=== PATIENT | male | born 1960 | race Caucasian/White ===

== ENCOUNTER 2022-12-31 09:25 | Outpatient (OUT) | payer BC, SELFPAY ==
[2022-12-31 10:24] LABS: Hematocrit 41.8 % (42.0-54.0); Hemoglobin 13.2 g/dL (14.0-18.0); Mean Corpuscular HGB Conc 31.6 g/dL (29.9-35.2); Mean Corpuscular Hemoglobin 28.3 pg (25.9-34.0); Mean Corpuscular Volume 89.7 fL (80.0-94.0); Mean Platelet Volume 10.7 fL (9.5-13.5); Nucleated Red Blood Cells 0; Platelet Count 132 10^3/uL (150-450); Red Blood Count 4.66 10^6/uL (4.70-6.10); Red Cell Distribution Width 13.1 % (11.0-15.0); White Blood Count 3.7 10^3/uL (4.0-11.0)
[2022-12-31 10:33] LABS: Alanine Aminotransferase 22 U/L (16-63); Albumin Globulin Ratio 0.9; Albumin Level 3.5 g/dL (3.4-5.0); Alkaline Phosphatase 74 U/L (46-116); Anion Gap 9.9; Aspartate Amino Transferase 17 U/L (15-37); BUN Creatinine Ratio 29.3; Bilirubin Total 0.5 mg/dL (0.2-1.0); Calcium 9.4 mg/dL (8.5-10.1); Carbon Dioxide 36.4 mmol/L (21.0-32.0); Chloride 102 mmol/L (98-107); Chol HDL Ratio 2.1; Cholesterol 161 mg/dL (<=200); Estimated GFR (African America >60 (>=60); Estimated GFR (Non-African Ame >60 (>=60); Globulin 3.7 g/dL; Glucose 102 mg/dL (74-106); HDL Cholesterol 77 mg/dL (40-60); Potassium 4.3 mmol/L (3.5-5.1); Sodium 144 mmol/L (136-145); Total Protein 7.2 g/dL (6.4-8.2); Triglycerides 45 mg/dL (<=150)
[2022-12-31 11:25] LABS: Monocytes Absolute Manual 0.22 10^3/uL (0.30-0.80); Segmented Neut Absolute Manual 2.51 10^3/uL (1.4-6.5)
[2022-12-31 11:26] LABS: Basophils Abs Manual 0.03 10^3/uL (0.00-0.10); Eosinophils Absolute Manual 0.14 10^3/uL (0.00-0.70)
[2022-12-31 11:27] LABS: Band Neutrophils Absolute 0.1 10^3/uL (0.0-0.3)
[2022-12-31 11:28] LABS: Ovalocytes 1+
== END 2022-12-31 09:26 ==
LOC: LAB 09:37
PROVIDERS: PCP Internal Medicine; Visit Provider Internal Medicine
DX: Z00.00 Encounter for general adult medical examination without abnormal findings (principal)
CPT/HCPCS: 36415; 80053; 80061; 85007; 85025

== ENCOUNTER 2023-03-12 09:55 | Outpatient (OUT) | payer BC, MEDICARE, SELFPAY ==
[2023-03-12 11:37] LABS: Prostate Specific Antigen Scrn <0.13 ng/mL (<=4.00)
== END 2023-03-12 09:56 | disposition home or self-care (01) ==
PROVIDERS: PCP Internal Medicine; Visit Provider Urology
DX: Z85.46 Personal history of malignant neoplasm of prostate (principal)
CPT/HCPCS: 36415; G0103

== ENCOUNTER 2023-05-19 12:50 | Outpatient (OUT) | payer BC, MEDICARE, SELFPAY ==
[2023-05-19 13:07] LABS: Basophils Percent Auto 0.6 % (0.2-2.0); Eosinophils Absolute Auto 0.2 10^3/uL (0.0-0.7); Eosinophils Percent Auto 3.5 % (0.9-7.0); Hematocrit 36.7 % (42.0-54.0); Hemoglobin 11.9 g/dL (14.0-18.0); Immature Granulocytes Abs Auto 0.02 10^3/uL (0.00-0.03); Immature Granulocytes Pct Auto 0.4 % (0.0-0.5); Lymphocytes Absolute Auto 0.6 10^3/uL (1.2-3.8); Lymphocytes Percent Auto 11.1 % (20.5-60.0); Mean Corpuscular HGB Conc 32.4 g/dL (29.9-35.2); Mean Corpuscular Hemoglobin 29.5 pg (25.9-34.0); Mean Corpuscular Volume 91.1 fL (80.0-94.0); Mean Platelet Volume 9.9 fL (9.5-13.5); Monocytes Absolute Auto 0.4 10^3/uL (0.3-0.8); Monocytes Percent Auto 8.6 % (1.7-12.0); Neutrophils Absolute Auto 3.9 10^3/uL (1.4-6.5); Neutrophils Percent Auto 75.8 % (43.0-75.0); Platelet Count 167 10^3/uL (150-450); Red Blood Count 4.03 10^6/uL (4.70-6.10); Red Cell Distribution Width 12.4 % (11.0-15.0); White Blood Count 5.1 10^3/uL (4.0-11.0)
[2023-05-19 14:02] LABS: Alanine Aminotransferase 13 U/L (16-63); Albumin Globulin Ratio 0.9; Albumin Level 3.1 g/dL (3.4-5.0); Alkaline Phosphatase 55 U/L (46-116); Anion Gap 7.6; Aspartate Amino Transferase 11 U/L (15-37); Bilirubin Total 0.4 mg/dL (0.2-1.0); Calcium 8.9 mg/dL (8.5-10.1); Carbon Dioxide 35.2 mmol/L (21.0-32.0); Chloride 101 mmol/L (98-107); Estimated GFR (African America >60 (>=60); Estimated GFR (Non-African Ame >60 (>=60); Globulin 3.5 g/dL; Glucose 70 mg/dL (74-106); Potassium 3.8 mmol/L (3.5-5.1); Sodium 140 mmol/L (136-145); Thyroid Stimulating Hormone 4.347 uIU/mL (0.358-3.740); Total Protein 6.6 g/dL (6.4-8.2); Valproic Acid 78.6 ug/mL (50.0-100.0)
[2023-05-24 22:07] LABS: Oxcarbazepine (Trileptal),S <1 ug/mL (10-35)
== END 2023-05-19 12:51 | disposition home or self-care (01) ==
LOC: LAB 12:51
PROVIDERS: PCP Internal Medicine
DX: G44.209 Tension-type headache, unspecified, not intractable (principal); R25.1 Tremor, unspecified
CPT/HCPCS: 36415; 80053; 80164; 80183; 84443; 85025

== ENCOUNTER 2023-07-09 08:38 | Outpatient (OUT) | payer BC, MEDICARE, SELFPAY ==
--- NOTE | 2023-07-09 08:54 | CT_ITS ---
The [address] [address] Patient Name: YENI CONNOR MRN: [facility]:[id number] date: 1960 Sex: M Assigned Patient Location: LAB Current Patient Location: LAB Accession/Order Number: [id number] Exam Date: 07/09/2023 10:02 Report Date: 07/09/2023 11:40 At the request of: ZULEIKA DOLL Procedure: CT abdomen pelvis w con EXAM: CT abdomen pelvis w con HISTORY: Unintentional Weight Loss R63.4, Anemia D64.9 COMPARISON: None. TECHNIQUE: Following intravenous administration of 97 cc of Omnipaque 300, axial soft tissue windows of the abdomen and pelvis were performed with coronal and sagittal reformats. CT dose reduction technique was used including Automated Exposure Control. Findings: Mild left lower lobe scarring. ABDOMEN: Fatty infiltration of the liver. The gallbladder, spleen, pancreas and adrenal glands are unremarkable. There are multiple splenic low-attenuation lesions, too small to characterize. The largest lesions do not meet the criteria for simple cyst. Duplicated left kidney. No renal stones or collecting system dilatation. The visualized portions of the bilateral ureters are nondilated. There are colonic diverticula. Otherwise, the bowel is unremarkable without evidence of wall thickening or obstruction. The appendix is nondilated. The aorta is normal caliber. Mild atherosclerotic disease. No enlarged abdominal lymph nodes or free abdominal fluid. Pelvis: Unremarkable bladder. No enlarged pelvic lymph nodes or free pelvic fluid. No aggressive sclerotic or lytic osseous lesions. Mild multilevel degenerative lumbar spondylosis with mild bilateral hip osteoarthritis. CT/CT abdomen pelvis w con IMPRESSION: 1. Fatty liver. 2. Multiple splenic low attenuation lesions. These may relate to benign angiomatous lesions. However infection or a lymphoproliferative disorder can have a similar appearance. If indicated, suggest contrast enhanced MRI for further evaluation. 3. Diverticulosis. 4. Other more incidental findings, as described above. Electronically authenticated by: TASHA ALMARAZ Date: 07/09/2023 11:40
[2023-07-09 09:02] LABS: Estimated GFR (African America >60 (>=60); Estimated GFR (Non-African Ame >60 (>=60)
== END 2023-07-09 08:39 | disposition home or self-care (01) ==
LOC: LAB 08:38
PROVIDERS: PCP Internal Medicine; Visit Provider Internal Medicine
DX: R63.4 Abnormal weight loss (principal); D64.9 Anemia, unspecified; C61 Malignant neoplasm of prostate; K76.0 Fatty (change of) liver, not elsewhere classified; K57.90 Diverticulosis of intestine, part unspecified, without perforation or abscess without bleeding
CPT/HCPCS: 36415; 74177; 82565; Q9967

== ENCOUNTER 2023-08-28 07:33 | Outpatient (OUT) | payer BC, MEDICARE, SELFPAY ==
--- NOTE | 2023-08-28 | CT_ITS ---
The [address] [address] Patient Name: YENI CONNOR MRN: [id number] date: 1960 Sex: M Assigned Patient Location: LAB Current Patient Location: Accession/Order Number: [id number] Exam Date: 08/28/2023 09:28 Report Date: 08/29/2023 18:54 At the request of: ZULEIKA DOLL Procedure: CT abdomen pelvis w con EXAM: CT scan of the abdomen and pelvis using 100 mL of IV iodinated contrast. Oral contrast. Dose reduction technique used: Automated exposure control and/or adjustment of the mA and/or kV according to patient size and/or use of iterative reconstruction technique. REASON FOR EXAM: weight loss R63.4, Primary Hypertension I10, Thombocylopenia COMPARISON: CT scan dated 07/09/2023 FINDINGS: Multiple small hypoenhancing splenic lesions, the largest of these measuring up to 1.1 cm, these are not significantly changed. Small amount scarring in the lower lungs bilaterally. Clustered nodules in the right middle lobe are likely sequela of infection/inflammation. Partial duplication of the left ureter. Colonic diverticulosis. Hysterectomy. Normal appendix. No free fluid in the abdomen or pelvis. No free intraperitoneal air. No dilated or thickened loops of small bowel or colon. No hydronephrosis or obstructing renal or ureteral calculi. Liver, pancreas, spleen, bilateral kidneys, and bilateral adrenal glands are otherwise unremarkable. No lymphadenopathy in the abdomen or pelvis. Remainder unremarkable. CT/CT abdomen pelvis w con IMPRESSION: 1. Small splenic hypoenhancing lesions are not significantly changed and may represent hemangiomas although are technically indeterminate, correlate with any prior outside imaging. 2. Otherwise, no other evidence of malignancy in the abdomen or pelvis. Electronically authenticated by: KALIE COCHRAN Date: 08/29/2023 18:54
--- OUTSIDE RECORDS SUMMARY | 2023-08-28 07:36 | XMS_ITS | CCD ---
Author Name Unknown Address [address] [place] [address] Organization [facility] Care Team Providers Care [place] Counselor Name Role Phone Sammy Aguilera Unavailable SAMMY AGUILERA Primary Care Physician KAYLA MCMAHON Attending Unavailable BRIAN .KAYLA Admitting Unavailable SAMMY AGUILERA Primary Care Unavailable JULIUS RUEDA Consulting Unavailable SAMMY AGUILERA Attending Unavailable SAMMY AGUILERA Consulting Unavailable SAMMY AGUILERA Primary Care Unavailable SAMMY AGUILERA Admitting Unavailable Kayla Torres Attending Unavailable Kayla Torres Admitting Unavailable Kayla Torres Attending Unavailable Jossue Spivey Admitting Unavailable Jossue Spivey Attending Unavailable Kayla Torres Attending Unavailable Kayla Torres Attending Unavailable Allergies Allergy Classification Reported Allergen(s) Allergy Type Date of Onset Reaction(s) Facility (1 source) patient allergy list reviewed by nurse or physicia Propensity to adverse reactions 9 Comment:Done [facility] Other (1 source) Allergies Reconciled Propensity to adverse reactions Unknown [facility] Other (1 source) No Known Medication Allergies; Translations: [No Known Medication Allergies] Propensity to adverse reactions (disorder) [facility] Repository Medications Current Medications Medication Drug Class(es) Dates Sig (Normalized) Sig (Original) amLODIPine 2.5 mg / benazepril hydrochloride 10 mg oral capsule (20 sources) Dihydropyridine Calcium Channel Matilde, Angiotensin Converting Enzyme Inhibitor Start: 07-01-2023 amLODIPine Besy-Benazepril HCl 2.5-10 MG as directed Orally daily for 30 days Jun, Active Start: 03-31-2023 [address] [facility] every twenty-four hours Lotrel 10-20 MG 1 capsule Orally daily for 90 days Mar, Active take [address] [facility] every twenty-four hours Lotrel 10-40 MG 1 capsule Orally daily Active ARIPiprazole 10 mg oral tablet (4 sources) Atypical Antipsychotic Start: 05-13-2021 take 1 mg by mouth once daily Abilify 10 mg Tab mg tab(s), Oral, Daily, Refills(s) 0 Start Date: 05/13/21 Status: Ordered Aspir-81 81 MG (20 sources) take 1 tablet by mouth once daily Aspir-81 81 MG 1 tablet Orally Once a day Active take 1 tablet by mouth once kavon y Aspir-81 81 MG 1 tablet Orally Once a day *please review for potential _update for e-prescription and drug interaction check* Active aspirin 81 mg oral tablet (4 sources) Platelet Aggregation Inhibitor, Nonsteroidal Anti-inflammatory Drug Start: 02-13-2020 take 1 mg by mouth once daily aspirin 81 mg oral tablet mg tab(s), Oral, Daily, Refills(s) 0 Start Date: 02/13/20 Status: Ordered 168 hr buprenorphine 0.02 mg/hr transdermal system (20 sources) Partial Opioid Agonist Start: 08-10-2023 Buprenorphine 20 MCG/HR 1 patch Transdermal every 7 days Aug, Active Start: 07-09-2023 Buprenorphine 20 MCG/HR 1 patch Transdermal every 7 days for 30 days start 07/09Jul, Active Start: 06-07-2023 Buprenorphine 20 MCG/HR 1 patch Transdermal every 7 days for 30 days p/u 06/07, start 06/09Jun, Active Start: 05-08-2023 Buprenorphine 20 MCG/HR 1 patch Transdermal every 7 days for 30 days p/u 05/08, start 05/10May, Active Start: 04-09-2023 Buprenorphine 20 MCG/HR 1 patch Transdermal every 7 days for 30 days p/u 04/09, start 04/10Apr, Active Start: 03-11-2023 Buprenorphine 20 MCG/HR 1 patch Transdermal every 7 days for 30 days Start 03/11Mar, Active Start: 02-09-2023 Buprenorphine 20 MCG/HR 1 patch Transdermal every 7 days for 30 days Start 02/08Jan, Active Start: 01-05-2023 Buprenorphine 20 MCG/HR 1 patch Transdermal every 7 days for 30 days Start 01/05Dec, Active Start: 12-03-2022 Buprenorphine 20 MCG/HR 1 patch Transdermal every 7 days p/u 12/03, start 12/04November, Active Start: 11-05-2022 Buprenorphine 20 MCG/HR 1 patch Transdermal every 7 days for 28 days Rx 11/04/22 Oct, Active Start: 09-30-2022 Buprenorphine 20 MCG/HR 1 patch Transdermal every 7 days for 28 days Sep, Active Belbuca 150 MCG 1 film to the gum Bucally every 12 hrs Active Belbuca 150 MCG 1 film to the gum Bucally every 12 hrs Active celecoxib 200 mg oral capsule (20 sources) Nonsteroidal Anti-inflammatory Drug Start: 02-13-2020 take 1 mg by mouth twice daily CeleBREX 200 mg Cap mg cap(s), Oral, BID, Refills(s) 0 Start Date: 02/13/20 Status: Ordered take [address] [facility] every twenty-four hours CeleBREX 200 MG 1 capsule with food Orally Once a day Active dexamethasone 4 mg oral tablet (1 source) Corticosteroid Start: 05-30-2023 take 1 tablet by mouth once daily dexamethasone 4 mg Tab 4 mg = 1 tab(s), Oral, Daily, # 6 tab(s), Refills(s) 0, Pharmacy: [facility]/pharmacy #[id number], 182, cm, 05/27/23 13:18:00 EDT, Height/Length Dosing, 68.1, kg, 05/27/23 13:18:00 EDT, Weight Dosing Start Date: 05/30/23 Status: Ordered DuoDERM CGF Spots Extra Thin - (13 sources) Start: 03-31-2023 DuoDERM CGF Spots Extra Thin - as directed Externally qd for 30 days Mar, Active methylphenidate hydrochloride 20 mg oral tablet (20 sources) Central Nervous System Stimulant Start: 01-17-2020 take 1.5 tablets by mouth every twenty-four hours Ritalin 20 MG 1.5 tablet Orally daily for [address] Aguilera Dec, Active pantoprazole 40 mg delayed release oral tablet (20 sources) Proton Pump Inhibitor Start: 02-13-2020 take 1 mg by mouth once daily Pantoprazole [address] Tab mg tab(s), Oral, Daily, Refills(s) 0 Start Date: 02/13/20 Status: Ordered pravastatin sodium 80 mg oral tablet (20 sources) HMG-CoA Reductase Inhibitor Start: 02-13-2020 take 1 mg by mouth once daily pravastatin 80 mg Tab mg tab(s), Oral, Daily, Refills(s) 0 Start Date: 02/13/20 Status: Ordered pregabalin 150 mg oral capsule (20 sources) Start: 07-27-2023 take 1 capsule by mouth every eight hours Lyrica 150 MG 1 capsule Orally 3 times a day for 90 days Jul, Active Start: 10-30-2022 take 1 capsule by mo ut every eight hours Lyrica 150 MG 1 capsule Orally 3 times a day Sep, Active Start: 02-13-2020 take 1 capsule by mo uth three times daily Lyrica 100 mg Cap 100 mg = 1 cap(s), Oral, TID, Refills(s) 0 Start Date: 02/13/20 Status: Ordered take 1 capsule by mo ut every eight hours Lyrica 150 MG 1 capsule Orally 3 times a day Active rOPINIRole 1 mg oral tablet (20 sources) Nonergot Dopamine Agonist Start: 02-13-2020 take 1 tablet by mouth three times daily Requip 1 mg Tab mg tab(s), Oral, TID, Refills(s) 0 Start Date: 02/13/20 Status: Ordered take 1 tablet by mouth once kavon y rOPINIRole HCl 1 MG TAKE 1 TABLET BY MOUTH EVERY DAY for 90 Active sildenafil 50 mg oral tablet (3 sources) Phosphodiesterase 5 Inhibitor Start: 12-02-2022 sildenafil 50 mg Tab 50 mg = 1 tab(s), Oral, As Directed, 1 hour before sexual activity. Do not exceed 100 mg (2 tabs) in 24 hours. Cannot take with nitro products., # 30 tab(s), Refills(s) 3, Pharmacy: [facility]/pharmacy #[id number], 183, cm, 12/02/22 8:18:00 EDT, Height/Length Dosi... Start Date: 12/02/22 Status: Ordered tiZANidine 4 mg oral capsule (20 sources) Central alpha-2 Adrenergic Agonist Start: 02-13-2020 take 1 mg by mouth three times daily tizanidine 4 mg oral capsule mg cap(s), Oral, TID, Refills(s) 0 Start Date: 02/13/20 Status: Ordered tiZANidine HCl 4 MG 1 and 1/2 tablet as needed Orally Three times a day neurologist Active traZODone hydrochloride 100 mg oral tablet (20 sources) Serotonin Reuptake Inhibitor Start: 05-27-2023 take 1 tablet by mouth once daily at bedtime traZODONE 100 mg Tab 100 mg = 1 tab(s), Oral, Once a day (at bedtime), Refills(s) 0 Start Date: 05/27/23 Status: Ordered take 3 tablets by mouth at bedti me traZODone HCl 100 mg take 3 tablet Orally at bedtime Active 24 hr divalproex sodium 500 mg extended release oral tablet (20 sources) Mood Stabilizer, Anti-epileptic Agent Start: 02-13-2020 take 1 mg by mouth once daily divalproex sodium 500 mg ER Tab mg tab(s), Oral, Daily, Refills(s) 0 Start Date: 02/13/20 Status: Ordered take 2 tablets by mouth once colt ly Divalproex Sodium ER 500 MG 2 tabs Orally once a day neurologist Active vortioxetine 20 mg oral tablet (20 sources) Start: 02-13-2020 take 1 mg by mouth once daily Trintellix 20 mg oral tablet mg tab(s), Oral, Daily, Refills(s) 0 Start Date: 02/13/20 Status: Ordered Problems Active Problems Problem Classification Problem Date Documented Date Episodic/Chronic Bacterial infection; unspecified site (1 source) Bacteremia; Translations: [Bacteremia] Onset: 05-29-2023 Episodic Cancer of head and neck (3 sources) Malignant tumor of tonsillar pillar; 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)] Onset: 07-02-2008 Chronic Cancer of head and neck (9 sources) History of malignant neoplasm of tonsil; Translations: [Personal history of malignant neoplasm of other sites of lip, oral cavity, and pharynx] Episodic Cancer of prostate (20 sources) Malignant tumor of prostate; Translations: [Malignant neoplasm of prostate] Onset: 11-30-2022 Chronic Cancer of prostate (6 sources) Personal history of malignant neoplasm of prostate; Translations: [History of malignant neoplasm of prostate] Onset: 12-02-2022 Episodic Cancer; other and unspecified primary (20 sources) History of squamous cell carcinoma; Translations: [Personal history of malignant neoplasm of other organs and systems] Episodic Cancer; other and unspecified primary (2 sources) Personal history of malignant neoplasm of other organs and systems Episodic Cancer; other and unspecified primary (1 source) H/O: malignant neoplasm; Translations: [Personal history of malignant neoplasm of other organs and systems] Episodic Cardiac dysrhythmias (1 source) Sinus bradycardia; Translations: [Bradycardia, unspecified] Onset: 05-29-2023 Episodic Coagulation and hemorrhagic disorders (20 sources) Thrombocytopenic disorder; Translations: [Thrombocytopenia, unspecified] Chronic Deficiency and other anemia (1 source) Pancytopenia; Translations: [Other pancytopenia] Chronic Deficiency and other anemia (1 source) Anemia; Translations: [Anemia, unspecified] Episodic Deficiency and other anemia (1 source) Anemia, unspecified Episodic Diseases of white blood cells (1 source) Leukopenia; Translations: [Decreased white blood cell count, unspecified] Chronic Disorders of lipid metabolism (20 sources) Hypercholesterolemia; Translations: [Pure hypercholesterolemia, unspecified] Onset: 08-04-2018 Chronic Esophageal disorders (20 sources) Gastro-esophageal reflux disease with esophagitis; Translations: [Gastroesophageal reflux disease with esophagitis without hemorrhage] Onset: 08-04-2018 Chronic Essential hypertension (20 sources) Essential hypertension; Translations: [Essential (primary) hypertension] Onset: 04-01-2011 Chronic Genitourinary symptoms and ill-defined conditions (14 sources) Mixed incontinence; Translations: [Incontinence] Onset: 12-02-2022 Chronic Genitourinary symptoms and ill-defined conditions (13 sources) Increased frequency of urination; Translations: [Isolated proteinuria] Onset: 05-27-2023 06-18-2020 Episodic Headache; including migraine (3 sources) Chronic tension-type headache; Translations: [Chronic tension-type headache, intractable] Onset: 08-12-2018 Chronic Immunizations and screening for infectious disease (1 source) Vaccination given; Translations: [Encounter for immunization] Episodic Malaise and fatigue (2 sources) Malaise and fatigue; Translations: [Other malaise and fatigue] Onset: 11-11-2018 Episodic Miscellaneous mental health disorders (20 sources) Primary insomnia; Translations: [Primary insomnia] Chronic Mood disorders (20 sources) Recurrent major depression in remission; Translations: [Major depressive disorder, recurrent, in partial remission] Onset: 08-04-2018 Chronic Neoplasms of unspecified nature or uncertain behavior (9 sources) Neoplasm of uncertain behavior of soft tissues; Translations: [Neoplasms of unspecified nature of bone, soft tissue, and skin] Episodic Osteoarthritis (12 sources) Osteoarthritis of knee; Translations: [Degenerative joint disease of knee] Onset: 08-04-2018 Chronic Other aftercare (9 sources) H/O: high risk medication; Translations: [Other keno terminal operator (current) drug therapy] Episodic Other circulatory disease (1 source) Cardiovascular symptoms; Translations: [Other specified symptoms and signs involving the circulatory and respiratory systems] Episodic Other connective tissue disease (9 sources) Impingement syndrome of shoulder region; Translations: [Shoulder impingement syndrome] Episodic Other connective tissue disease (1 source) Fibromyalgia; Translations: [Fibromyalgia] Episodic Other hereditary and degenerative nervous system conditions (3 sources) Restless legs; Translations: [Restless legs syndrome] Onset: 08-04-2018 Chronic Other lower respiratory disease (1 source) Dyspnea; Translations: [Other forms of dyspnea] Episodic Other male genital disorders (9 sources) Induratio penis plastica; 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] Onset: 12-09-2011 Chronic Other male genital disorders (2 sources) Secondary erectile dysfunction; 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] Onset: 12-02-2022 Chronic Other male genital disorders (4 sources) Erectile dysfunction following radical prostatectomy 12-02-2022 Chronic Other nervous system disorders (1 source) Chronic pain syndrome; Translations: [Chronic pain syndrome] Chronic Other non-traumatic joint disorders (1 source) Monoarthritis of ankle and/or foot; Translations: [Monoarthritis, not elsewhere classified, left ankle and foot] Chronic Other non-traumatic joint disorders (2 sources) Shoulder joint pain; Translations: [Pain in joint, shoulder region] Onset: 08-04-2018 Episodic Other nutritional; endocrine; and metabolic disorders (1 source) Simple obesity ; Translations: [Other obesity due to excess calories] Onset: 08-12-2018 Chronic Other nutritional; endocrine; and metabolic disorders (1 source) Body mass index 30+ - obesity; Translations: [Body mass index 30.0-30.9, adult] Onset: 08-12-2018 Chronic Other nutritional; endocrine; and metabolic disorders (1 source) Abnormal weight loss; Translations: [Abnormal weight loss] Episodic Other nutritional; endocrine; and metabolic disorders (4 sources) Abnormal weight loss Episodic Other screening for suspected conditions (not mental disorders or infectious disease) (5 sources) Raised prostate specific antigen; Translations: [Elevated prostate specific antigen [PSA]] Resolved: 06-14-2020 03-12-2020 Episodic Other skin disorders (1 source) Ingrowing nail; Translations: [Ingrowing nail] Episodic Residual codes; unclassified (20 sources) Obstructive sleep apnea syndrome; Translations: [Obstructive sleep apnea (adult) (pediatric)] Onset: 08-04-2018 Chronic Residual codes; unclassified (4 sources) Obstructive sleep apnea (adult) (pediatric) Chronic Residual codes; unclassified (1 source) Sleep apnea; Translations: [Sleep apnea, unspecified] Onset: 08-04-2018 Chronic Residual codes; unclassified (9 sources) Insomnia; Translations: [Insomnia, unspecified] Episodic Respiratory failure; insufficiency; arrest (adult) (1 source) Acute respiratory failure; Translations: [Acute respiratory failure with hypoxia] Onset: 05-27-2023 Episodic Spondylosis; intervertebral disc disorders; other back problems (20 sources) Lumbar spondylosis; Translations: [Spondylosis without myelopathy or radiculopathy, lumbar region] Onset: 08-04-2018 Chronic Sprains and strains (1 source) Strain of muscle and tendon of back wall of thorax, initial encounter; Translations: [Strain of muscle and tendon of back wall of thorax, initial encounter] Episodic Viral infection (3 sources) Disease caused by 2019-nCoV; Translations: [COVID-19] Onset: 05-27-2023 Past or Other Problems Problem Classification Problem Date Documented Da te Episodic/Chronic Esophageal disorders (5 sources) Esophageal disorders; Translations: [Gastro-esophageal reflux disease with esophagitis, without bleeding] Headache; including migraine (1 source) Headache; Translations: [Headache, unspecified] Onset: 08-04-2018 Episodic Inflammatory conditions of male genital organs (1 source) Chronic prostatitis; Translations: [Chronic prostatitis] Resolved: 03-12-2020 Chronic Other aftercare (1 source) High risk drug monitoring status; Translations: [long term care phlebotomist (current) use of opiate analgesic] Onset: 02-09-2019 Episodic Other connective tissue disease (9 sources) Myalgia/myositis - multiple; Translations: [Unspecified myalgia and myositis] Onset: 12-09-2011 Episodic Other connective tissue disease (1 source) Pain in limb; Translations: [Pain in soft tissues of limb] Onset: 08-04-2018 Episodic Other gastrointestinal disorders (1 source) Dysphagia; Translations: [Dysphagia, unspecified] Onset: 08-04-2018 Episodic Screening and history of mental health and substance abuse codes (1 source) History of tobacco use; Translations: [Personal history of tobacco use, presenting hazards to health] Onset: 08-12-2018 Episodic Skin and subcutaneous tissue infections (1 source) Cellulitis of finger; Translations: [Cellulitis of unspecified finger] Resolved: 11-13-2019 Episodic Spondylosis; intervertebral disc disorders; other back problems (2 sources) Low back pain; Translations: [Low back pain, unspecified] Onset: 08-04-2018 Episodic Unclassified (9 sources) Personal history of malignant neoplasm of other and unspecified parts of oral cavity and pharynx; Translations: [Personal history of malignant neoplasm of other and unspecified parts of oral cavity and pharynx] Onset: 12-09-2011 Viral infection (1 source) Postherpetic neuralgia; Translations: [Other postherpetic nervous system involvement] Onset: 08-04-2018 Episodic Results Test Name Value Interpretation Reference Range Facility Insurance Correspondenceon 1 09-20-2022 Insurance Correspondence [id number]# 1.00TIFF [facility] Reportability Response - Pub lic Healthon 06-03-2023 Reportability Response - Public Health {[id number]}XML [facility] Insurance Correspondence Off iceon 06-01-2023 Insurance Correspondence Office [id number] #1.00TIFF [facility] Discharge Instructionson Discharge Instructions [id number]#1. 00TIFF [facility] Insurance Correspondence Off iceon 05-31-2023 Insurance Correspondence Office [id number]# 1.00TIFF Normal [facility] Insurance Correspondence Office [id number]# 1.00TIFF Normal [facility] Auto Diffon 05-30-2023 Basophils/100 WBC (Bld) 0.3 % Normal 0.0-2.0 [facility] Comment on above: Order Comment: Order Added by Discern Expert. Performed By: #### 2 094530, [id number], 1783041, [id number], [id number] ####[facility] [address] [place] [address] Basophils/Leukocytes Auto (Bld) [Pure # fraction] 0.0 E9/L Normal 0.0-0.2 [facility] Comment on above: Order Comment: Order Added by Discern Expert. Performed By: #### 2 130771, 8328194, 7984280, [id number], [id number] ####[facility] [address] [place] [address] Eosinophils/100 WBC (Bld) 0.0 % Normal 0.0-8.0 [facility] Comment on above: Order Comment: Order Added by Emma Expert. Performed By: #### 2 464691, 2006206, 6618551, 25605044, 5768121 ####[facility] [address] [place] [address] Eosinophils/Leukocytes Auto (Bld) [Pure # fraction] 0.0 E9/L Normal 0.0-0.5 [facility] Comment on above: Order Comment: Order Added by Emma Expert. Performed By: #### 2 870471, 5239174, 5769374, 68440399, 8015356 ####[facility] [address] [place] [address] Lymphocytes/100 WBC (Bld) 17.8 % Normal 14.0-50.0 [facility] Comment on above: Order Comment: Order Added by Emma Expert. Performed By: #### 2 204511, 9999420, 9184453, 73092916, 9195642 ####[address] [place] [address] Lymphocytes/Leukocytes Auto (Bld) [Pure # fraction] 0.8 E9/L Low 1.0-4.0 [facility] Comment on above: Order Comment: Order Added by Emma Expert. Performed By: #### 2 588701, 3733415, 0384956, [id number], 4314527 ####[address] [place] [address] Monocytes/100 WBC (Bld) 6.9 % Normal 4.0-14.0 [facility] Comment on above: Order Comment: Order Added by Emma Expert. Performed By: #### 2 965086, 0334556, 0572881, 86907381, 3296346 ####[address] [address] Monocytes/Leukocytes Auto (Bld) [Pure # fraction] 0.3 E9/L Normal 0.2-1.0 [facility] Comment on above: Order Comment: Order Added by Emma Expert. Performed By: #### 2 538518, 0248686, 6264996, 51976599, 8279404 ####[address] [place] [address] Neutrophils/100 WBC (Bld) 75.0 % Normal 36.0-75.0 [facility] Comment on above: Order Comment: Order Added by Emma Expert. Performed By: #### 2 673502, 6472053, 2939555, 06281804, 7719319 ####[address] [place] [address] Neutrophils/Leukocytes Auto (Bld) [Pure # fraction] 3.6 E9/L Normal 2.0-7.5 [facility] Comment on above: Order Comment: Order Added by Emma Expert. Performed By: #### 2 376288, 9114564, 0430826, 77338493, 5701933 ####[facility] [address] [place] [address] BMPon 05-30-2023 Anion gap [Moles/Vol] 9 mmol/L Normal 6-16 [facility] Comment on above: Performed By: #### 2 326206, 9952253, 8630756, 61064011, 08133000, 5648271 #### [facility] [address] [place] [address] Calcium [Mass/Vol] 8.6 mg/dL Low 8.9-11.1 [facility] Comment on above: Performed By: #### 2 781841, 6572827, 0173632, 42783794, 27577785, 3657017 #### [facility] [address] [place] [address] Chloride [Moles/Vol] 94 mmol/L Low 101-111 [facility] Comment on above: Performed By: #### 2 932065, 9780407, 8789865, 98155972, 00099443, 5580111 #### [facility] [address] [place] [address] CO2 [Moles/Vol] 35 mmol/L High 21-31 [facility] Comment on above: Performed By: #### 2 265966, 4923236, 7687659, 00113673, 73262939, 4807939 #### [facility] [address] [place] [address] Creatinine [Mass/Vol] 0.7 mg/dL Normal 0.5-1.3 [facility] Comment on above: Performed By: #### 2 174619, 0323522, 6132672, 10872776, 83430198, 6037919 #### [facility] [address] [place] [address] Glucose [Mass/Vol] 88 mg/dL Normal 55-199 [facility] Comment on above: Result Comment: If t his glucose result represents a fasting glucose, interpretation should refer to the following reference range: 55-99 mg/dL Performed By: #### 2 254125, 7788946, 7849540, 78282264, 06226831, 0009551 #### [facility] [address] [place] [address] Potassium [Moles/Vol] 3.3 mmol/L Low 3.5-5.3 [facility] Comment on above: Performed By: #### 2 278462, 1825878, 3336238, 47878862, 85799584, 6873916 #### [facility] [address] [place] [address] Sodium [Moles/Vol] 135 mmol/L Normal 135-145 [facility] Comment on above: Performed By: #### 2 582480, 3469777, 0734295, 84385125, 74864685, 8727911 #### [facility] [address] [place] [address] Urea nitrogen [Mass/Vol] 25 mg/dL High 5-21 [facility] Comment on above: Performed By: #### 2 565530, 8901134, 5228737, 39680918, 48028158, 8232675 #### [facility] [address] [place] [address] Urea nitrogen/Creatinine [Mass ratio] 36 No Units High 10-20 [facility] Comment on above: Performed By: #### 2 081168, 9079359, 2940970, 02850379, 24897128, 9197703 #### [facility] [address] [place] [address] CBC w/ Auto Diffon 3 Erythrocyte distribution width (RBC) [Ratio] 13.1 % Normal 10.9-14.2 [facility] [facility] Comment on above: Performed By: #### 2 616218, 4975471, 5085759, 20759274, 2571731 ####[facility] [address] [place] [address] Hematocrit (Bld) [Volume fraction] 39.3 % Normal 37.7-49.0 [facility] Comment on above: Performed By: #### 2 021423, 6331913, 7104286, 56120362, 9833226 ####[facility] [address] [place] [address] Hemoglobin (Bld) [Mass/Vol] 13.1 g/dL Low 13.5-17.5 [facility] Comment on above: Performed By: #### 2 668031, 1648790, 6541353, 15109488, 8870160 ####[place] [address] MCH (RBC) [Entitic mass] 28.8 pg Normal 27.0-34.0 [facility] Comment on above: Performed By: #### 2 155814, 9282811, 7575572, 59524718, 4009355 ####[place] [address] MCHC (RBC) [Mass/Vol] 33.3 g/dL Normal 31.4-36.0 [facility] Comment on above: Performed By: #### 2 828822, 9413684, 4192871, 20128804, 5445458 ####[place] [address] MCV (RBC) [Entitic vol] 86.4 fL Normal 80.0-100.0 [facility] Comment on above: Performed By: #### 2 118086, 0962450, 0922515, 70920981, 0467368 ####[address] [address] Platelet mean volume (Bld) [Entitic vol] 8.5 fL Normal 6.4-10.8 [facility] Comment on above: Performed By: #### 2 406543, 3740798, 9547866, 33918716, 5129907 ####[address] [address] Platelets (Bld) [#/Vol] 167.0 E9/L Normal 150.0-500.0 [facility] Comment on above: Performed By: #### 2 926718, 7376534, 6512486, 80223733, 3071142 ####[facility] [address] [place] [address] RBC (Bld) [#/Vol] 4.5 E12/L Normal 4.3-5.9 [facility] Comment on above: Performed By: #### 2 860652, 7931624, 0771465, 90490205, 3809934 ####[facility] [address] [place] [address] WBC corrected for nucl RBC Auto (Bld) [#/Vol] 4.8 E9/L Normal 4.0-11.0 [facility] Comment on above: Performed By: #### 2 227346, 4972655, 4317595, 91816996, 5218415 ####[facility] [address] [place] [address] CHEMISTRYOrdered By: SYSTEM SYSTEM on 05-30-2023 Vancomycin trough [Moles/Vol] 13 microgram/mL Normal 10 - 20 mcg/mL [facility] Rem[facility] Anion gap [Moles/Vol] 9 mmol/L Normal 6 - 16 mEq/L F [facility] Remisol Calcium [Mass/Vol] 8.6 mg/dL Low 8.9 - 11. 1 mg/dL [facility] Chloride [Moles/Vol] 94 mmol/L Low 101 - 1 11 mmol/L [facility] Remisol CO2 [Moles/Vol] 35 mmol/L High 21 - 31 mmol/L [facility] Creatinine [Mass/Vol] 0.7 mg/dL Normal 0.5 - 1.3 mg/dL [facility] Remisol GFR/1.73 sq M.predicted among non-blacks MDRD (S/P/Bld) [Vol rate/Area] 102 mL/min/1.73 m2 Normal >=59mL/min/1 .73 m2 [facility] Chem S Comment on above: Interpretive Data: C hronic kidney disease could be indicated at eGFR's of less than 60 mL/min/1.73m2. Kidney failure is indicated at less than 15 mL/min/1.73m2. Glucose [Mass/Vol] 88 mg/dL Normal 55 - 199 mg/dL [facility] Comment on above: Interpretive Data: I f this glucose result represents a fasting glucose, interpretation should refer to the following reference range: 55-99 mg/dL Potassium [Moles/Vol] 3.3 mmol/L Low 3.5 - 5.3 mmol/L [facility] Sodium [Moles/Vol] 135 mmol/L Normal 135 - 145 mmol/L [facility] Urea nitrogen [Mass/Vol] 25 mg/dL High 5 - 21 mg/dL [facility] Urea nitrogen/Creatinine [Mass ratio] 36 mg/mg High 10 - 20 [facility] Rem[facility] Vancomycin peak [Moles/Vol] 25 microgram/mL Normal 20 - 40 mcg/mL [facility] HEMATOLOGYOrdered By: SYSTEM SYSTEM on 05-30-2023 Basophils/100 WBC (Bld) 0.3 % Normal 0.0 - 2.0 % [facility] HemeAutoSS Basophils/Leukocytes Auto (Bld) [Pure # fraction] 0.0 E9/L Normal 0.0 - 0.2 E9/L [facility] HemeAutoSS Eosinophils/100 WBC (Bld) 0.0 % Normal 0.0 - 8.0 % [facility] HemeAutoSS Eosinophils/Leukocytes Auto (Bld) [Pure # fraction] 0.0 E9/L Normal 0.0 - 0.5 E9/L [facility]eAutoSS Lymphocytes/100 WBC (Bld) 17.8 % Normal 14.0 - 50.0 % [facility] HemeAutoSS Lymphocytes/Leukocytes Auto (Bld) [Pure # fraction] 0.8 E9/L Low 1.0 - 4.0 E9/L [facility] HemeAutoSS Monocytes/100 WBC (Bld) 6.9 % Normal 4.0 - 14.0 % [facility] HemeAutoSS Monocytes/Leukocytes Auto (Bld) [Pure # fraction] 0.3 E9/L Normal 0.2 - 1.0 E9/L [facility] HemeAutoSS Neutrophils/100 WBC (Bld) 75.0 % Normal 36.0 - 75.0 % [facility] HemeAutoSS Neutrophils/Leukocytes Auto (Bld) [Pure # fraction] 3.6 E9/L Normal 2.0 - 7.5 E9/L [facility] HemeAutoSS HEMATOLOGYOrdered By: Michelle Manuel on 05-30-2023 Erythrocyte distribution width (RBC) [Ratio] 13.1 % Normal 10.9 - 14.2 % [facility] HemeAutoSS Hematocrit (Bld) [Volume fraction] 39.3 % Normal 37.7 - 49.0 % [facility] HemeAutoSS Hemoglobin (Bld) [Mass/Vol] 13.1 g/dL Low 13.5 - 17.5 gm/dL [facility] HemeAutoSS MCH (RBC) [Entitic mass] 28.8 pg Normal 27.0 - 34.0 pg [facility] HemeAutoSS MCHC (RBC) [Mass/Vol] 33.3 g/dL Normal 31.4 - 36.0 gm/dL [facility] HemeAutoSS MCV (RBC) [Entitic vol] 86.4 fL Normal 80.0 - 100.0 fL [facility] HemeAutoSS Platelet mean volume (Bld) [Entitic vol] 8.5 fL Normal 6.4 - 10.8 fL [facility] HemeAutoSS Platelets (Bld) [#/Vol] 167.0 E9/L Normal 150.0 - 500.0 E9/L [facility] HemeAutoSS RBC (Bld) [#/Vol] 4.5 E12/L Normal 4.3 - 5.9 E12/L [facility] HemeAutoSS WBC corrected for nucl RBC Auto (Bld) [#/Vol] 4.8 E9/L Normal 4.0 - 11.0 E9/L [facility] HemeAutoSS Inpatient Patient Summaryon 05-30-2023 Inpatient Patient Summary YENI CONNOR :1960 Visit Date:05/27/2023 Inpatient Discharge Instructions Your Care Team Admitting Physician - KAZ LUGO, Stevefo Reason for Your Visit Covid-weak/dizzy/SOB Your Diagnosis COVID-19 Acute hypoxemic respiratory failure Sinus bradycardia Positive blood cultures UTI symptoms Essential hypertension HLD (hyperlipidemia) Depression Chronic GERD RLS (restless legs syndrome) Cough Dizziness Weakness or fatigue Tests Performed Automated Diff Bilirubin Direct Blood Gas Art, with Lytes, Gluc, Lact BMP BMP BNP Capillary Glucose POC CBC w/ Auto Diff CMP COVID Rapid Antigen ([facility]) eGFR Hepatic Function Panel -- Results Pending -- Influenza A&B Ag PT & PTT Troponin 0 Hr. Troponin 3 Hr. Troponin 6 Hr. Troponin 9 Hr. TSH With T4fr Reflex Urinalysis with Culture Reflex Vancomycin Level Peak Vancomycin Level Trough -- Results Pending -- XR Chest Single View Please visit your patient portal for your results or contact your primary care physician. This Is Your Medications List aripiprazole (Abilify 10 mg Tab) aspirin (aspirin 81 mg oral tablet) celecoxib (CeleBREX 200 mg Cap) dexamethasone (dexamethasone 4 mg Tab) divalproex sodium (divalproex sodium 500 mg ER Tab) pantoprazole (Pantoprazole [address] Tab) pravastatin (pravastatin 80 mg Tab) pregabalin (Lyrica 100 mg Cap) ropinirole (Requip 1 mg Tab) trazodone (traZODONE 100 mg Tab) vortioxetine (Trintellix 20 mg oral tablet) [Image Removed: STOP]Stop taking these medications sildenafil (sildenafil 50 mg Tab) tizanidine (tizanidine 4 mg oral capsule) Procedure History Radical retropubic prostatectomy (05/09/2020), Transrectal biopsy of prostate (02/29/2020), External beam radiotherapy (2007), Colonoscopy, Tonsillectomy. Discharge Vitals Temperature (Oral) 36.7 ?C Heart Rate (Monitored) 42 Blood Pressure 157/77 What to do next Instructions From Your Doctor Event Name Event Result Pending Diagnostic Test Results None Pharmacy Information [facility] Discharge Instructions Return to ER symptoms change or worsen. Previously Scheduled Follow-Up Appointments Wednesday 10:45 AM EDT With: Brian LUGO, Kayla Dubose Where: [facility] Interdisciplinary Note - Daniel e Manageron 05-30-2023 Interdisciplinary Note - [employer] CRM to room to discuss DC planning. Patient is awake, alert and oriented. Patient is from home with his spouse. She will transport at [place]. Patient verified PCP, home DME and insurance. Patient is here as inpatient. Medicare form signed. Patient is here with Weakness, dizziness, and Covid [id number]. Patient is on isolation. Patient is assigned to Dr Spivey, see notes. Patient has been weaned to RA. . Patient was offered DC needs for DME, HH and PM. Patient denied any DC needs. Patient was provided CRM contact, ivan board updated. Anticipated DC 05/30 or 10/30 CRM following [facility] Comment on above: Result Comment: Elec tronically Signed By: Dolly Copeland\.br\Date and Time Signed: 05/30/23 10:59 EDT Monitor Recordon 05-30-2023 Monitor Record [id number]# 1.00TIFF Normal [facility] Monitor Record [id number]# 1.00TIFF Normal [facility] Progress Note - Pharmacyon 1 Progress Note - Pharmacy Indication: Other:Bacteremia Goal Range:AUC/CARLOS A: 400 - 600 RECOMMENDATIONS PLAN: Pharmacy consulted for vancomycin dosing for YENI CONNOR, a 63 Years, Male who is being treated with vancomycin for bacteremia. 1. VANCO STATUS Vancomycin therapy is still active, today is day 3 of treatment. Patient is receiving Vanco 1000mg IV q12hr 2. VANCO LEVEL The most recent vanco level were, Peak 25 mcg/mL draw at 0618 on 05/30/23 and Trough 13 mcg/mL drawn at 1338 on 05/30/23. Based on these levels AUC is 502. These levels were drawn on day 3 of therapy. 3. DOSING RECS The Vanco AUC is therapeutic, no dosing adjustments will be made at this time. 4. NEXT LEVELThe next level is scheduled for 1300 on 06/01/2023. 5. MRSA NASAL SWAB _ We will follow patient renal function, vancomycin levels and doses with you during the course of therapy. Additional recommendations will appear in follow up notes. If you have any question please contact pharmacy. Age: 63 Years Allergies: No Known Medication Allergies Weight Last Documented Weight and Type of Scale Used Last Documented Weight Weight Measured: 68.1 kg (05/27/23 17:52:00) Type of Scale Used Weight Measured Type of Scale: Bed Scale (digital) (05/27/23 17:15:00) Height Last Documented Height/Length Last Documented Height/Length Height/Length Measured: 182 cm (05/27/23 17:52:00) CrCl: 101.34 mL/min Labs: WBC: 4.8 E9/L (05/30/23 06:18:00) RBC: 4.5 E12/L (05/30/23 06:18:00) HGB: 13.1 gm/dL Low (05/30/23 06:18:00) Hct: 39.3 % (05/30/23 06:18:00) MCV: 86.4 fL (05/30/23 06:18:00) MCH: 28.8 pg (05/30/23 06:18:00) MCHC: 33.3 gm/dL (05/30/23 06:18:00) RDW: 13.1 % (05/30/23 06:18:00) Platelet: 167 E9/L (05/30/23 06:18:00) MPV: 8.5 fL (05/30/23 06:18:00) Neutro Auto: 75 % (05/30/23 06:18:00) Lymph Auto: 17.8 % (05/30/23 06:18:00) Towns Auto: 6.9 % (05/30/23 06:18:00) Eos Auto: 0 % (05/30/23 06:18:00) Basophil Auto: 0.3 % (05/30/23 06:18:00) Neutro Absolute: 3.6 E9/L (05/30/23 06:18:00) Lymph Absolute: 0.8 E9/L Low (05/30/23 06:18:00) Towns Absolute: 0.3 E9/L (05/30/23 06:18:00) Eos Absolute: 0 E9/L (05/30/23 06:18:00) Basophil Absolute: 0 E9/L (05/30/23 06:18:00) Glucose Lvl: 88 mg/dL (05/30/23 06:18:00) BUN: 25 mg/dL High (05/30/23 06:18:00) Creatinine: 0.7 mg/dL (05/30/23 06:18:00) eGFR: 102 mL/min/1.73 m2 (05/30/23 06:18:00) BUN/Creat Ratio: 36 High (05/30/23 06:18:00) Sodium Lvl: 135 mmol/L (05/30/23 06:18:00) Potassium Lvl: 3.3 mmol/L Low (05/30/23 06:18:00) Chloride: 94 mmol/L Low (05/30/23 06:18:00) CO2: 35 mmol/L High (05/30/23 06:18:00) AGAP: 9 mEq/L (05/30/23 06:18:00) Calcium Lvl: 8.6 mg/dL Low (05/30/23 06:18:00) Vanco Pk: 25 mcg/mL (05/30/23 06:18:00) Normal [facility] Vanco Peakon 05-30-2023 VANCOMYCIN 25 microgram/mL Normal 20-40 [facility] Comment on above: Order Comment: Pleas e drawn Vancomycin Peak 1 hour after the completion of the 0200 dose on 05/30/23. Thank you.Per Rigoberto nurse draw at 600am per vanco will not be done until 500am heb 05/30/2023 05:18:00 EDT Performed By: #### 2 567028, 8070898, 7161989, 53111588, 53491404, 8400151 #### [facility] [address] [place] [address] Vanco Troughon 05-30-2023 VANCOMYCIN 13 microgram/mL Normal 10-20 [facility] Comment on above: Order Comment: NOTE: Trough is scheduled 1 hour prior to next dose. Thank you. Performed By: #### 2 438879, 5663868, 1157282, 67903529, 49454036, 3041312 #### [facility] [address] [place] [address] eGFRon 05-30-2023 GFR/1.73 sq M.predicted among non-blacks MDRD (S/P/Bld) [Vol rate/Area] 102 mL/min/1.73 m2 Normal >=59 [facility] Comment on above: Order Comment: Order added by Discern Expert. Result Comment: Script Manager radha kidney disease could be indicated at eGFR's of less than 60 mL/min/1.73m2. Kidney failure is indicated at less than 15 mL/min/1.73m2. Performed By: #### 2 873228, 6732833, 6449117, 86655135, 49478553, 6720777 #### [facility] [address] [place] [address] Auto Diffon 05-29-2023 Basophils/100 WBC (Bld) 0.2 % Normal 0.0-2.0 [facility] Comment on above: Order Comment: Order Added by Discern Expert. Performed By: #### 2 304984, 9054499, 7000251, 55338527, 91589838, 6545931 #### [facility] [address] [place] [address] Basophils/Leukocytes Auto (Bld) [Pure # fraction] 0.0 E9/L Normal 0.0-0.2 [facility] Comment on above: Order Comment: Order Added by Discern Expert. Performed By: #### 2 662328, 7710153, 0716030, 85773682, 52991619, 8772813 #### [facility] [address] [place] [address] Eosinophils/100 WBC (Bld) 0.2 % Normal 0.0-8.0 [facility] Comment on above: Order Comment: Order Added by Discern Expert. Performed By: #### 2 451439, 6572187, 7428599, 50969181, 80358723, 3705005 #### [facility] [address] [place] [address] Eosinophils/Leukocytes Auto (Bld) [Pure # fraction] 0.0 E9/L Normal 0.0-0.5 [facility] Comment on above: Order Comment: Order Added by Discern Expert. Performed By: #### 2 922254, 2533240, 0520948, 11937909, 88595196, 5363750 #### [facility] [address] [place] [address] Lymphocytes/100 WBC (Bld) 12.6 % Low 14.0-50.0 [facility] Comment on above: Order Comment: Order Added by Discern Expert. Performed By: #### 2 482709, 1275267, 7616593, 43416409, 22923746, 5261663 #### [facility] [address] [place] [address] Lymphocytes/Leukocytes Auto (Bld) [Pure # fraction] 0.7 E9/L Low 1.0-4.0 [facility] Comment on above: Order Comment: Order Added by Discern Expert. Performed By: #### 2 034384, 2590187, 1659072, 40724692, 62230961, 1947173 #### [facility] [address] [place] [address] Monocytes/100 WBC (Bld) 7.5 % Normal 4.0-14.0 [facility] Comment on above: Order Comment: Order Added by Discern Expert. Performed By: #### 2 136451, 9103896, 1558543, 09622502, 89462668, 6403964 #### [facility] [address] [place] [address] Monocytes/Leukocytes Auto (Bld) [Pure # fraction] 0.4 E9/L Normal 0.2-1.0 [facility] Comment on above: Order Comment: Order Added by Discern Expert. Performed By: #### 2 036195, 3287669, 9859895, 70647500, 09464658, 6515790 #### [facility] [address] [place] [address] Neutrophils/100 WBC (Bld) 79.5 % High 36.0-75.0 [facility] Comment on above: Order Comment: Order Added by Discern Expert. Performed By: #### 2 497490, 9053860, 3520409, 38066816, 55670568, 7983286 #### [facility] [address] [place] [address] Neutrophils/Leukocytes Auto (Bld) [Pure # fraction] 4.6 E9/L Normal 2.0-7.5 [facility] Comment on above: Order Comment: Order Added by Discern Expert. Performed By: #### 2 617301, 2162365, 2562546, 75187225, 55305321, 4956861 #### [facility] [address] [place] [address] Bili Directon 05-29-2023 Bilirubin.direct [Mass/Vol] 0.1 mg/dL Normal 0.1-0.4 [facility] Comment on above: Order Comment: Order Added by Discern Expert. Performed By: #### 2 076105, 5548777, 6039577, 13430078, 33793416, 9526075 #### [facility] [address] [place] [address] CBC w/ Auto Diffon Erythrocyte distribution width (RBC) [Ratio] 13.3 % Normal 10.9-14.2 [facility] Comment on above: Performed By: #### 2 302007, 7281771, 2947023, 05280540, 59719193, 0682050 #### [facility] [address] [place] [address] Hematocrit (Bld) [Volume fraction] 32.0 % Low 37.7-49.0 [facility] Comment on above: Performed By: #### 2 585285, 9071938, 0755405, 78437930, 53368142, 4371853 #### [facility] [address] [place] [address] Hemoglobin (Bld) [Mass/Vol] 10.9 g/dL Low 13.5-17.5 [facility] Comment on above: Performed By: #### 2 470476, 4800518, 8636751, 63652794, 07462834, 5007779 #### [facility] [address] [place] [address] MCH (RBC) [Entitic mass] 29.4 pg Normal 27.0-34.0 [facility] Comment on above: Performed By: #### 2 746776, 9566368, 0870724, 21649173, 79600160, 4449064 #### [facility] [address] [place] [address] MCHC (RBC) [Mass/Vol] 34.2 g/dL Normal 31.4-36.0 [facility] Comment on above: Performed By: #### 2 622332, 0196445, 8275381, 33381802, 01164476, 6509095 #### [facility] [address] [place] [address] MCV (RBC) [Entitic vol] 85.8 fL Normal 80.0-100.0 [facility] Comment on above: Performed By: #### 2 229176, 2401682, 4376376, 54758275, 53082770, 7045958 #### [facility] [address] [place] [address] Platelet mean volume (Bld) [Entitic vol] 8.3 fL Normal 6.4-10.8 [facility] Comment on above: Performed By: #### 2 493760, 6852032, 4569998, 53421481, 47594002, 9645662 #### [facility] [address] [place] [address] Platelets (Bld) [#/Vol] 156.0 E9/L Normal 150.0-500.0 [facility] Comment on above: Performed By: #### 2 696773, 1656151, 2250482, 48614354, 04190225, 6808275 #### [facility] [address] [place] [address] RBC (Bld) [#/Vol] 3.7 E12/L Low 4.3-5.9 [facility] Comment on above: Performed By: #### 2 039839, 5030620, 3126499, 16682707, 34317172, 3323149 #### [facility] [address] [place] [address] WBC corrected for nucl RBC Auto (Bld) [#/Vol] 5.8 E9/L Normal 4.0-11.0 [facility] Comment on above: Performed By: #### 2 404276, 5195065, 3223466, 00822106, 45718246, 0920468 #### [facility] [address] [place] [address] CHEMISTRYOrdered By: SYSTEM SYSTEM on 05-29-2023 Albumin [Mass/Vol] 2.5 g/dL Low 3.3 - 5.0 gm/dL [facility] Remisol Albumin/Globulin [Mass ratio] 0.9 {ratio} Low 1.1 - 2.2 [facility] Remisol ALP [Catalytic activity/Vol] 43 [iU]/d Normal 21 - 98 Int._Unit/L [facility] Remisol ALT No additional P-5'-P [Catalytic activity/Vol] 10 [iU]/d Normal 6 - 46 Int._Unit/L [facility] Remisol Anion gap [Moles/Vol] 7 mmol/L Normal 6 - 16 mEq/L [facility] Rem[facility] AST [Catalytic activity/Vol] 15 [iU]/d Normal 5 - 43 Int._Unit/L [facility] Remisol Bilirubin [Mass/Vol] 0.3 mg/dL Normal 0.0 - 1 .1 mg/dL [facility]isol Bilirubin.direct [Mass/Vol] 0.1 mg/dL Normal 0.1 - 0.4 mg/dL [facility] Calcium [Mass/Vol] 8.6 mg/dL Low 8.9 - 11. 1 mg/dL [facility] Chloride [Moles/Vol] 102 mmol/L Normal 101 - 1 11 mmol/L [facility] CO2 [Moles/Vol] 34 mmol/L High 21 - 31 mmol/L [facility] Creatinine [Mass/Vol] 0.8 mg/dL Normal 0.5 - 1.3 mg/dL [facility] GFR/1.73 sq M.predicted among non-blacks MDRD (S/P/Bld) [Vol rate/Area] 98 mL/min/1.73 m2 Normal >=59mL/min/1 .73 m2 [facility] Chem S Comment on above: Interpretive Data: C hronic kidney disease could be indicated at eGFR's of less than 60 mL/min/1.73m2. Kidney failure is indicated at less than 15 mL/min/1.73m2. Globulin (S) [Mass/Vol] 2.7 g/dL Normal 1.4 - 4.0 gm/dL [facility]isol Glucose [Mass/Vol] 93 mg/dL Normal 55 - 199 mg/dL [facility] Comment on above: Interpretive Data: I f this glucose result represents a fasting glucose, interpretation should refer to the following reference range: 55-99 mg/dL Potassium [Moles/Vol] 3.7 mmol/L Normal 3.5 - 5.3 mmol/L [facility] Protein [Mass/Vol] 5.2 g/dL Low 6.0 - 7.8 gm/dL [facility] Sodium [Moles/Vol] 139 mmol/L Normal 135 - 145 mmol/L [facility] TSH Qn 1.15 m[IU]/L Normal 0.34 - 5.60 mcIU/mL [facility] Urea nitrogen [Mass/Vol] 27 mg/dL High 5 - 21 mg/dL [facility] Urea nitrogen/Creatinine [Mass ratio] 34 mg/mg High 10 - FT Remisol CMPon 05-29-2023 Albumin [Mass/Vol] 2.5 g/dL Low 3.3-5.0 [facility] Comment on above: Performed By: #### 2 037238, 9633237, 4120612, 11622443, 19643388, 8414569 #### [facility] [address] [place] [address] Albumin/Globulin (S) [Mass conc ratio] 0.9 Low 1.1-2.2 [facility] Comment on above: Performed By: #### 2 282801, 5120023, 6466527, 58312317, 42164875, 9778210 #### [facility] [address] [place] [address] ALP [Catalytic activity/Vol] 43 Int._Unit/L Normal 21-98 [facility] Comment on above: Performed By: #### 2 034996, 8009586, 3686839, 80610282, 55155708, 9049926 #### [facility] [address] [place] [address] ALT No additional P-5'-P [Catalytic activity/Vol] 10 Int._Unit/L Normal 6-46 [facility] Comment on above: Performed By: #### 2 879732, 3634603, 3575518, 03725827, 49364643, 4771512 #### [facility] [address] [place] [address] Anion gap [Moles/Vol] 7 mmol/L Normal 6-16 [facility] Comment on above: Performed By: #### 2 721363, 8978083, 3367374, 19938514, 14602700, 8803230 #### [facility] [address] [place] [address] AST [Catalytic activity/Vol] 15 Int._Unit/L Normal 5-43 [facility] Comment on above: Performed By: #### 2 681517, 0854727, 3114942, 81631965, 89204774, 4228118 #### [facility] [address] [place] [address] Bilirubin [Mass/Vol] 0.3 mg/dL Normal 0.0-1.1 [facility] Comment on above: Performed By: #### 2 987669, 0911791, 3958837, 22468157, 31348372, 3496125 #### [facility] [address] [place] [address] Calcium [Mass/Vol] 8.6 mg/dL Low 8.9-11.1 [facility] Comment on above: Performed By: #### 2 230590, 3674808, 1292875, 88005476, 29479081, 8785208 #### [facility] [address] [place] [address] Chloride [Moles/Vol] 102 mmol/L Normal 101-111 [facility] Comment on above: Performed By: #### 2 139920, 4056778, 9891199, 41111003, 25974148, 2690804 #### [facility] [address] [place] [address] CO2 [Moles/Vol] 34 mmol/L High 21-31 [facility] Comment on above: Performed By: #### 2 318014, 4139668, 5259170, 46174740, 38151261, 7587056 #### [facility] [address] [place] [address] Creatinine [Mass/Vol] 0.8 mg/dL Normal 0.5-1.3 [facility] Comment on above: Performed By: #### 2 411006, 3402080, 2749620, 28574804, 40511066, 7192877 #### [facility] [address] [place] [address] Globulin (S) [Mass/Vol] 2.7 g/dL Normal 1.4-4.0 [facility] Comment on above: Performed By: #### 2 153041, 8676316, 5141296, 90451207, 32194743, 5238093 #### [facility] [address] [place] [address] Glucose [Mass/Vol] 93 mg/dL Normal 55-199 [facility] Comment on above: Result Comment: If t his glucose result represents a fasting glucose, interpretation should refer to the following reference range: 55-99 mg/dL Performed By: #### 2 661918, 3186085, 0991399, 87555361, 43055508, 2189995 #### [facility] [address] [place] [address] Potassium [Moles/Vol] 3.7 mmol/L Normal 3.5-5.3 [facility] Comment on above: Performed By: #### 2 958194, 6542889, 5258631, 56186247, 98427817, 4723954 #### [facility] [address] [place] [address] Protein [Mass/Vol] 5.2 g/dL Low 6.0-7.8 [facility] Comment on above: Performed By: #### 2 302760, 4328108, 8810793, 46782599, 86206274, 8096595 #### [facility] [address] [place] [address] Sodium [Moles/Vol] 139 mmol/L Normal 135-145 [facility] Comment on above: Performed By: #### 2 238789, 0381905, 3527258, 83528517, 82949393, 9865205 #### [facility] [address] [place] [address] Urea nitrogen [Mass/Vol] 27 mg/dL High 5-21 [facility] Comment on above: Performed By: #### 2 728690, 5574612, 9308230, 67379236, 34151734, 7840391 #### [facility] [address] [place] [address] Urea nitrogen/Creatinine [Mass ratio] 34 No Units High 10-20 [facility] Comment on above: Performed By: #### 2 894767, 3690815, 9074683, 40632560, 54894227, 4225618 #### [facility] [address] [place] [address] HEMATOLOGYOrdered By: SYSTEM SYSTEM on 05-29-2023 Basophils/100 WBC (Bld) 0.2 % Normal 0.0 - 2.0 % [facility] Basophils/Leukocytes Auto (Bld) [Pure # fraction] 0.0 E9/L Normal 0.0 - 0.2 E9/L [facility] Eosinophils/100 WBC (Bld) 0.2 % Normal 0.0 - 8.0 % [facility] Eosinophils/Leukocytes Auto (Bld) [Pure # fraction] 0.0 E9/L Normal 0.0 - 0.5 E9/L [facility] Lymphocytes/100 WBC (Bld) 12.6 % Low 14.0 - 50.0 % [facility] Lymphocytes/Leukocytes Auto (Bld) [Pure # fraction] 0.7 E9/L Low 1.0 - 4.0 E9/L [facility] Monocytes/100 WBC (Bld) 7.5 % Normal 4.0 - 14.0 % [facility] Monocytes/Leukocytes Auto (Bld) [Pure # fraction] 0.4 E9/L Normal 0.2 - 1.0 E9/L [facility] Neutrophils/100 WBC (Bld) 79.5 % High 36.0 - 75.0 % [facility] Neutrophils/Leukocytes Auto (Bld) [Pure # fraction] 4.6 E9/L Normal 2.0 - 7.5 E9/L [facility] HEMATOLOGYOrdered By: Michelle Manuel on 05-29-2023 Erythrocyte distribution width (RBC) [Ratio] 13.3 % Normal 10.9 - 14.2 % [facility] Hematocrit (Bld) [Volume fraction] 32.0 % Low 37.7 - 49.0 % [facility] Hemoglobin (Bld) [Mass/Vol] 10.9 g/dL Low 13.5 - 17.5 gm/dL [facility] MCH (RBC) [Entitic mass] 29.4 pg Normal 27.0 - 34.0 pg [facility] MCHC (RBC) [Mass/Vol] 34.2 g/dL Normal 31.4 - 36.0 gm/dL [facility] MCV (RBC) [Entitic vol] 85.8 fL Normal 80.0 - 100.0 fL [facility] Platelet mean volume (Bld) [Entitic vol] 8.3 fL Normal 6.4 - 10.8 fL [facility] Platelets (Bld) [#/Vol] 156.0 E9/L Normal 150.0 - 500.0 E9/L [facility] RBC (Bld) [#/Vol] 3.7 E12/L Low 4.3 - 5.9 E12/L [facility] WBC corrected for nucl RBC Auto (Bld) [#/Vol] 5.8 E9/L Normal 4.0 - 11.0 E9/L [facility] Monitor Recordon 05-29-2023 Monitor Record [id number]# 1.00TIFF Normal [facility] Monitor Record [id number]# 1.00TIFF Normal [facility] Monitor Record [id number]# 1.00TIFF Normal [facility] TSH With T4fr Reflexon 05-29 TSH Qn 1.15 m[IU]/L Normal 0.34-5.60 [facility] Comment on above: Performed By: #### 2 511346, 4450154, 3420054, 37042758, 21357086, 6852970 #### [facility] [address] [place] [address] eGFRon 05-29-2023 GFR/1.73 sq M.predicted among non-blacks MDRD (S/P/Bld) [Vol rate/Area] 98 mL/min/1.73 m2 Normal >=59 [facility] Comment on above: Order Comment: Order added by Discern Expert. Result Comment: Script Manager radha kidney disease could be indicated at eGFR's of less than 60 mL/min/1.73m2. Kidney failure is indicated at less than 15 mL/min/1.73m2. Performed By: #### 2 070781, 8063316, 2427596, 28064083, 86511862, 2348912 #### [facility] [address] [place] [address] Auto Diffon 05-28-2023 Basophils/100 WBC (Bld) 0.1 % Normal 0.0-2.0 [facility] Comment on above: Order Comment: Order Added by Discern Expert. Performed By: #### 2 657405, 1950497, 0240538, 51051607, 71226423, 8276259 #### [facility] [address] [place] [address] Basophils/Leukocytes Auto (Bld) [Pure # fraction] 0.0 E9/L Normal 0.0-0.2 [facility] Comment on above: Order Comment: Order Added by Discern Expert. Performed By: #### 2 024780, 1463691, 6750615, 29808204, 35485157, 0603752 #### [facility] [address] [place] [address] Eosinophils/100 WBC (Bld) 0.0 % Normal 0.0-8.0 [facility] Comment on above: Order Comment: Order Added by Discern Expert. Performed By: #### 2 072217, 8303483, 6587767, 69643137, 73947302, 0091800 #### [facility] [address] [place] [address] Eosinophils/Leukocytes Auto (Bld) [Pure # fraction] 0.0 E9/L Normal 0.0-0.5 [facility] Comment on above: Order Comment: Order Added by Discern Expert. Performed By: #### 2 677290, 6672663, 6329567, 29544675, 22996495, 1808994 #### [facility] [address] [place] [address] Lymphocytes/100 WBC (Bld) 6.8 % Low 14.0-50.0 [facility] Comment on above: Order Comment: Order Added by Discern Expert. Performed By: #### 2 525234, 5502393, 6407809, 54027917, 41766974, 2264508 #### [facility] [address] [place] [address] Lymphocytes/Leukocytes Auto (Bld) [Pure # fraction] 0.4 E9/L Low 1.0-4.0 [facility] Comment on above: Order Comment: Order Added by Discern Expert. Performed By: #### 2 386196, 6446616, 6064368, 71718994, 01276504, 2105862 #### [facility] [address] [place] [address] Monocytes/100 WBC (Bld) 3.6 % Low 4.0-14.0 [facility] Comment on above: Order Comment: Order Added by Discern Expert. Performed By: #### 2 872946, 8055005, 2835676, 75198850, 40472690, 7900309 #### [facility] [address] [place] [address] Monocytes/Leukocytes Auto (Bld) [Pure # fraction] 0.2 E9/L Normal 0.2-1.0 [facility] Comment on above: Order Comment: Order Added by Discern Expert. Performed By: #### 2 879097, 9162794, 7020622, 27274796, 54141247, 2377790 #### [facility] [address] [place] [address] Neutrophils/100 WBC (Bld) 89.5 % High 36.0-75.0 [facility] Comment on above: Order Comment: Order Added by Discern Expert. Performed By: #### 2 828836, 3594415, 5997842, 86949777, 06985108, 7152885 #### [facility] [address] [place] [address] Neutrophils/Leukocytes Auto (Bld) [Pure # fraction] 4.9 E9/L Normal 2.0-7.5 [facility] Comment on above: Order Comment: Order Added by Discern Expert. Performed By: #### 2 122252, 2493557, 1045237, 69854690, 65729111, 9207623 #### [facility] [address] [place] [address] BMPon 05-28-2023 Anion gap [Moles/Vol] 10 mmol/L Normal 6-16 [facility] Comment on above: Performed By: #### 2 708715, 7639506, 8179113, 80375566, 86108209, 7739630 #### [facility] [address] [place] [address] Calcium [Mass/Vol] 9.1 mg/dL Normal 8.9-11.1 [facility] Comment on above: Performed By: #### 2 928548, 4167438, 4472294, 91921762, 11299197, 2265513 #### [facility] [address] [place] [address] Chloride [Moles/Vol] 98 mmol/L Low 101-111 [facility] Comment on above: Performed By: #### 2 898206, 5900696, 1429805, 51618026, 90668295, 5380859 #### [facility] [address] [place] [address] CO2 [Moles/Vol] 36 mmol/L High 21-31 [facility] Comment on above: Performed By: #### 2 183759, 1024952, 1054706, 44471888, 92746485, 5036592 #### [facility] [address] [place] [address] Creatinine [Mass/Vol] 0.8 mg/dL Normal 0.5-1.3 [facility] Comment on above: Performed By: #### 2 726036, 3144618, 1228099, 85957950, 67747924, 4575515 #### [facility] [address] [place] [address] Glucose [Mass/Vol] 107 mg/dL Normal 55-199 [facility] Comment on above: Result Comment: If t his glucose result represents a fasting glucose, interpretation should refer to the following reference range: 55-99 mg/dL Performed By: #### 2 357896, 8007186, 5043950, 28639514, 50603506, 4614226 #### [facility] [address] [place] [address] Potassium [Moles/Vol] 4.2 mmol/L Normal 3.5-5.3 [facility] Comment on above: Performed By: #### 2 898556, 7976203, 1944662, 25430825, 58312825, 9297254 #### [facility] [address] [place] [address] Sodium [Moles/Vol] 140 mmol/L Normal 135-145 [facility] Comment on above: Performed By: #### 2 676340, 7070024, 3316909, 53362195, 59210629, 3069366 #### [facility] [address] [place] [address] Urea nitrogen [Mass/Vol] 19 mg/dL Normal 5-21 [facility] Comment on above: Performed By: #### 2 719187, 5195545, 7331867, 11065029, 75260778, 7252703 #### [facility] [address] [place] [address] Urea nitrogen/Creatinine [Mass ratio] 24 No Units High 10-20 [facility] Comment on above: Performed By: #### 2 307321, 5448261, 9537813, 26895219, 66075925, 8103997 #### [facility] [address] [place] [address] CBC w/ Auto Diffon Erythrocyte distribution width (RBC) [Ratio] 13.1 % Normal 10.9-14.2 [facility] Comment on above: Performed By: #### 2 435519, 6459637, 9365832, 39227669, 12240084, 1616013 #### [facility] [address] [place] [address] Hematocrit (Bld) [Volume fraction] 36.2 % Low 37.7-49.0 [facility] Comment on above: Performed By: #### 2 507970, 3051495, 7919467, 98383496, 17096915, 2524841 #### [facility] [address] [place] [address] Hemoglobin (Bld) [Mass/Vol] 12.2 g/dL Low 13.5-17.5 [facility] Comment on above: Performed By: #### 2 677795, 1117089, 5545273, 82009038, 67686315, 3560651 #### [facility] [address] [place] [address] MCH (RBC) [Entitic mass] 29.1 pg Normal 27.0-34.0 [facility] Comment on above: Performed By: #### 2 333883, 5798521, 3391087, 80764249, 48393744, 0161894 #### [facility] [address] [place] [address] MCHC (RBC) [Mass/Vol] 33.7 g/dL Normal 31.4-36.0 [facility] Comment on above: Performed By: #### 2 143633, 5745453, 7142123, 75670106, 92025333, 6284267 #### [facility] [address] [place] [address] MCV (RBC) [Entitic vol] 86.4 fL Normal 80.0-100.0 [facility] Comment on above: Performed By: #### 2 969352, 2181785, 2876395, 21780842, 38603042, 1653745 #### [facility] [address] [place] [address] Platelet mean volume (Bld) [Entitic vol] 7.9 fL Normal 6.4-10.8 [facility] Comment on above: Performed By: #### 2 941967, 8440744, 1636467, 89485805, 85679391, 4245888 #### [facility] [address] [place] [address] Platelets (Bld) [#/Vol] 147.0 E9/L Low 150.0-500.0 [facility] Comment on above: Performed By: #### 2 097270, 0423738, 7165804, 45611953, 04290220, 1281444 #### [facility] [address] [place] [address] RBC (Bld) [#/Vol] 4.2 E12/L Low 4.3-5.9 [facility] Comment on above: Performed By: #### 2 721663, 6717471, 6368086, 10050652, 77528534, 0794457 #### [facility] [address] [place] [address] WBC corrected for nucl RBC Auto (Bld) [#/Vol] 5.5 E9/L Normal 4.0-11.0 [facility] Comment on above: Performed By: #### 2 813469, 6675643, 0809595, 63560196, 02335958, 4947428 #### [facility] [address] [place] [address] CHEMISTRYOrdered By: Krishna PEDERSEN User on 05-28-2023 Glucose [Mass/Vol] 120 mg/dL High 55 - 99 mg/dL [facility] POC Subsection Comment on above: Result Comment: Beatriz burger RN/ POC Username LUCY KAPADIA Invalid Interpretation Code [facility] P[facility] Subsection Sodium [Moles/Vol] [id number] mmol/L Invalid Interpretation Code [facility] Subsection Sodium [Moles/Vol] [id number] mmol/L Invalid Interpretation Code [facility] POC Subsection CHEMISTRYOrdered By: SYSTEM SYSTEM on 05-28-2023 Albumin [Mass/Vol] 3.2 g/dL Low 3.3 - 5.0 gm/dL [facility] Albumin/Globulin [Mass ratio] 1.0 {ratio} Low 1.1 - 2.2 [facility] ALP [Catalytic activity/Vol] 58 [iU]/d Normal 21 - 98 Int._Unit/L [facility] ALT No additional P-5'-P [Catalytic activity/Vol] 10 [iU]/d Normal 6 - 46 Int._Unit/L [facility] Anion gap [Moles/Vol] 10 mmol/L Normal 6 - 16 mEq/L [facility] AST [Catalytic activity/Vol] 16 [iU]/d Normal 5 - 43 Int._Unit/L [facility] Bilirubin [Mass/Vol] 0.5 mg/dL Normal 0.0 - 1 .1 mg/dL [facility] Bilirubin.direct [Mass/Vol] 0.2 mg/dL Normal 0.1 - 0.4 mg/dL [facility] Bilirubin.indirect [Mass or moles/Vol] 0.4 mg/dL Normal 0.1 - 0.9 mg/dL [facility] Calcium [Mass/Vol] 9.1 mg/dL Normal 8.9 - 11. 1 mg/dL [facility] Chloride [Moles/Vol] 98 mmol/L Low 101 - 1 11 mmol/L [facility] CO2 [Moles/Vol] 36 mmol/L High 21 - 31 mmol/L [facility] Creatinine [Mass/Vol] 0.8 mg/dL Normal 0.5 - 1.3 mg/dL [facility] GFR/1.73 sq M.predicted among non-blacks MDRD (S/P/Bld) [Vol rate/Area] 98 mL/min/1.73 m2 Normal >=59mL/min/1 .73 m2 [facility] Chem S Comment on above: Interpretive Data: C hronic kidney disease could be indicated at eGFR's of less than 60 mL/min/1.73m2. Kidney failure is indicated at less than 15 mL/min/1.73m2. Globulin (S) [Mass/Vol] 3.3 g/dL Normal 1.4 - 4.0 gm/dL [facility] Glucose [Mass/Vol] 107 mg/dL Normal 55 - 199 mg/dL [facility] Comment on above: Interpretive Data: I f this glucose result represents a fasting glucose, interpretation should refer to the following reference range: 55-99 mg/dL Potassium [Moles/Vol] 4.2 mmol/L Normal 3.5 - 5.3 mmol/L [facility] Protein [Mass/Vol] 6.5 g/dL Normal 6.0 - 7.8 gm/dL [facility] Sodium [Moles/Vol] 140 mmol/L Normal 135 - 145 mmol/L [facility] Urea nitrogen [Mass/Vol] 19 mg/dL Normal 5 - 21 mg/dL [facility] Urea nitrogen/Creatinine [Mass ratio] 24 mg/mg High [facility] Capillary Glucose POCon 05-03 Glucose [Mass/Vol] 120 mg/dL High 55-99 [facility] Comment on above: Result Comment: Beatriz burger RN/ Performed By: #### 2 007625, 5734670, 2186226, 23189861, 25149978, 7088847 #### [facility] [address] [place], [place] [address] HEMATOLOGYOrdered By: SYSTEM SYSTEM on 05-28-2023 Basophils/100 WBC (Bld) 0.1 % Normal 0.0 - 2.0 % [facility] Basophils/Leukocytes Auto (Bld) [Pure # fraction] 0.0 E9/L Normal 0.0 - 0.2 E9/L [facility] Eosinophils/100 WBC (Bld) 0.0 % Normal 0.0 - 8.0 % [facility] Eosinophils/Leukocytes Auto (Bld) [Pure # fraction] 0.0 E9/L Normal 0.0 - 0.5 E9/L [facility] Lymphocytes/100 WBC (Bld) 6.8 % Low 14.0 - 50.0 % [facility] Lymphocytes/Leukocytes Auto (Bld) [Pure # fraction] 0.4 E9/L Low 1.0 - 4.0 E9/L [facility] Monocytes/100 WBC (Bld) 3.6 % Low 4.0 - 14.0 % [facility] Monocytes/Leukocytes Auto (Bld) [Pure # fraction] 0.2 E9/L Normal 0.2 - 1.0 E9/L [facility] Neutrophils/100 WBC (Bld) 89.5 % High 36.0 - 75.0 % [facility] Neutrophils/Leukocytes Auto (Bld) [Pure # fraction] 4.9 E9/L Normal 2.0 - 7.5 E9/L [facility] HEMATOLOGYOrdered By: Michelle Manuel on 05-28-2023 Erythrocyte distribution width (RBC) [Ratio] 13.1 % Normal 10.9 - 14.2 % [facility] Hematocrit (Bld) [Volume fraction] 36.2 % Low 37.7 - 49.0 % [facility] Hemoglobin (Bld) [Mass/Vol] 12.2 g/dL Low 13.5 - 17.5 gm/dL [facility] MCH (RBC) [Entitic mass] 29.1 pg Normal 27.0 - 34.0 pg [facility] MCHC (RBC) [Mass/Vol] 33.7 g/dL Normal 31.4 - 36.0 gm/dL [facility] MCV (RBC) [Entitic vol] 86.4 fL Normal 80.0 - 100.0 fL [facility] Platelet mean volume (Bld) [Entitic vol] 7.9 fL Normal 6.4 - 10.8 fL [facility] Platelets (Bld) [#/Vol] 147.0 E9/L Low 150.0 - 500.0 E9/L [facility] RBC (Bld) [#/Vol] 4.2 E12/L Low 4.3 - 5.9 E12/L [facility] WBC corrected for nucl RBC Auto (Bld) [#/Vol] 5.5 E9/L Normal 4.0 - 11.0 E9/L [facility] Hep Func Panelon 05-28-2023 Albumin [Mass/Vol] 3.2 g/dL Low 3.3-5.0 [facility] Comment on above: Performed By: #### 2 605155, 5769865, 2903461, 29836519, 43455186, 3347530 #### [facility] [address] [place] [address] Albumin/Globulin (S) [Mass conc ratio] 1.0 Low 1.1-2.2 [facility] Comment on above: Performed By: #### 2 784937, 4421564, 2044824, 76927154, 24885534, 1736936 #### [facility] [address] [place] [address] ALP [Catalytic activity/Vol] 58 Int._Unit/L Normal 21-98 [facility] Comment on above: Performed By: #### 2 673783, 7244104, 0005549, 52303462, 08697050, 3361328 #### [facility] [address] [place] [address] ALT No additional P-5'-P [Catalytic activity/Vol] 10 Int._Unit/L Normal 6-46 [facility] Comment on above: Performed By: #### 2 608345, 4245993, 3897653, 51124112, 28500334, 7926379 #### [facility] [address] [place] [address] AST [Catalytic activity/Vol] 16 Int._Unit/L Normal 5-43 [facility] Comment on above: Performed By: #### 2 446305, 7053420, 4029602, 30050412, 84588943, 8558889 #### [facility] [address] [place] [address] Bilirubin [Mass/Vol] 0.5 mg/dL Normal 0.0-1.1 [facility] Comment on above: Performed By: #### 2 449585, 1124148, 7408884, 35948486, 87714681, 7087086 #### [facility] [address] [place] [address] Bilirubin.direct [Mass/Vol] 0.2 mg/dL Normal 0.1-0.4 [facility] Comment on above: Performed By: #### 2 660387, 2566741, 8500428, 36648166, 20567485, 8868732 #### [facility] [address] [place] [address] Bilirubin.indirect [Mass or moles/Vol] 0.4 mg/dL Normal 0.1-0.9 [facility] Comment on above: Performed By: #### 2 827157, 2804530, 2163418, 46472593, 01985764, 4823478 #### [facility] [address] [place] [address] Globulin (S) [Mass/Vol] 3.3 g/dL Normal 1.4-4.0 [facility] Comment on above: Performed By: #### 2 077983, 8534507, 2977291, 75733346, 78288723, 6070465 #### [facility] [address] [place] [address] Protein [Mass/Vol] 6.5 g/dL Normal 6.0-7.8 [facility] Comment on above: Performed By: #### 2 733022, 5497911, 0674326, 48258121, 93650995, 1708707 #### [facility] [address] [place] [address] Inpatient Clinical Summaryon 05-28-2023 Inpatient Clinical Summary [address] [address] Clinical Summary Person Information: Name: YENI CONNOR Age: 63 Years : 1960 Sex: Male PCP: SAMMY AGUILERA DO Marital Status: Race: White Ethnicity: Non- or Language: Chilean Visit Id: Visit Reason: Cough; Dizziness; Weakness or fatigue; WEAKNESS, DIZZINESS Speciality: Acuity: Enc Type: Inpatient Med Service: Medical Arrival: 05/27/2023 13:12:53 Discharge: Dispo Type: Admitted as IP to this Hosp Address: [address] [place] [address] [address] Ines CASAREZ [place] [id number] Provider Notes: Diagnosis: 1:COVID-19; 2:Acute hypoxemic respiratory failure; 3:UTI symptoms; 4:Essential hypertension; 5:HLD (hyperlipidemia); 6:Depression; 7:Chronic GERD; 8:RLS (restless legs syndrome) Problems Active RLS (restless legs syndrome) Chronic GERD Depression HLD (hyperlipidemia) Erectile dysfunction after radical prostatectomy Mixed incontinence Proteinuria Post-void dribbling Urge incontinence History of prostate cancer Prostate cancer Frequent urination Recurrent major depression Essential hypertension Microscopic hematuria Elevated PSA Smoking Status: Never Smoker Functional Status: Sensory Deficits: History of Falls: Mobility Assistance Prior to Admission: ADLs: Independent Current Level of Assistance for Self-Care/Mobility: Cognitive Status: Oriented x 3 Allergies No Known Medication Allergies Measurements: Height: 182 cm Weight: 68.1 kg Blood Pressure: 150 mmHg / 70 mmHg BMI: 20.56 kg/m2 Procedures No Procedures Documented Immunizations No Immunizations Documented This Visit Final Med List: aripiprazole (Abilify 10 mg Tab) By Mouth every day. aspirin (aspirin 81 mg oral tablet) By Mouth every day. celecoxib (CeleBREX 200 mg Cap) By Mouth 2 times a day. divalproex sodium (divalproex sodium 500 mg ER Tab) By Mouth every day. pantoprazole (Pantoprazole [address] Tab) By Mouth every day. pravastatin (pravastatin 80 mg Tab) By Mouth every day. pregabalin (Lyrica 100 mg Cap) 1 Capsules By Mouth 3 times a day. ropinirole (Requip 1 mg Tab) By Mouth 3 times a day. sildenafil (sildenafil 50 mg Tab) 1 Tablets By Mouth As Directed. 1 hour before sexual activity. Do not exceed 100 mg (2 tabs) in 24 hours. Cannot take with nitro products.. Refills: 3. tizanidine (tizanidine 4 mg oral capsule) By Mouth 3 times a day. trazodone (traZODONE 100 mg Tab) 1 Tablets By Mouth once a day (at bedtime). vortioxetine (Trintellix 20 mg oral tablet) By Mouth every day. Care Team Members: Attending Physician: Miriam MCCURDY MD Consulting Physician: Referring Physician: Follow up: Type Location Start Finish State [facility] Office Visit [facility] [place] 03/22/2024 10:45 AM 03/22/2024 11:00 AM Confirmed Patient Education Information: Normal [facility] Inpatient Patient Summaryon 05-28-2023 Inpatient Patient Summary [address] [address] Patient Discharge Instructions PERSON INFORMATION Name: YENI CONNOR Date of : 1960 Current Date: 05/28/2023 08:52:57 PHYSICIANS Admitting Physician: KAZ LUGO, Miriam Primary Care Physician: SAMMY AGUILERA DO PCP Comment: Discharge Diagnosis: 1:COVID-19; 2:Acute hypoxemic respiratory failure; 3:UTI symptoms; 4:Essential hypertension; 5:HLD (hyperlipidemia); 6:Depression; 7:Chronic GERD; 8:RLS (restless legs syndrome) Condition at Discharge: YENI CONNOR has been given the following list of follow-up instructions, prescriptions, and patient education materials: PATIENT FOLLOW-UP INFORMATION Diet: Discharge Activity: Discharge Restrictions: Wound Care Instructions: Remove Your Dressing In Days Call Your Doctor For: IF UNABLE TO CONTACT YOUR PHYSICIAN AND YOU FEEL IT IS AN EMERGENCY, GO TO THE NEAREST EMERGENCY ROOM OR CALL 911 Home Treatment: Devices/Equipment: None Special Services: Additional Instructions: Primary Care Physician to provide the following pending test results: Follow up: In the event that this physician does not participate in your insurance network, please consult with your insurance company to find a nearby participating provider. Type Location Start [facility] Office Visit [facility] Isiah 03/22/2024 10:45 AM 03/22/2024 11:00 AM Confirmed Comment: I GEETAYENI, have received the attached patient education materials/instruction s and have verbalized understanding: Patient Signature Date Clinican/Nurse Signature Date HERE ARE THE MEDICATION CHANGES THAT OCCURRED DURING YOUR HOSPITAL STAY Medications to Continue with No Changes Other Medications aripiprazole (Abilify 10 mg Tab) By Mouth every day. Last Dose: ____Next Dose: ____ aspirin (aspirin 81 mg oral tablet) By Mouth every day. Last Dose: ____Next Dose: ____ celecoxib (CeleBREX 200 mg Cap) By Mouth 2 times a day. Last Dose: ____Next Dose: ____ divalproex sodium (divalproex sodium 500 mg ER Tab) By Mouth every day. Last Dose: ____Next Dose: ____ pantoprazole (Pantoprazole [address] Tab) By Mouth every day. Last Dose: ____Next Dose: ____ pravastatin (pravastatin 80 mg Tab) By Mouth every day. Last Dose: ____Next Dose: ____ pregabalin (Lyrica 100 mg Cap) 1 Capsules By Mouth 3 times a day. Last Dose: ____Next Dose: ____ ropinirole (Requip 1 mg Tab) By Mouth 3 times a day. Last Dose: ____Next Dose: ____ sildenafil (sildenafil 50 mg Tab) 1 Tablets By Mouth As Directed. 1 hour before sexual activity. Do not exceed 100 mg (2 tabs) in 24 hours. Cannot take with nitro products.. Refills: 3. Last Dose: ____Next Dose: ____ tizanidine (tizanidine 4 mg oral capsule) By Mouth 3 times a day. Last Dose: ____Next Dose: ____ trazodone (traZODONE 100 mg Tab) 1 Tablets By Mouth once a day (at bedtime). Last Dose: ____Next Dose: ____ vortioxetine (Trintellix 20 mg oral tablet) By Mouth every day. Last Dose: ____Next Dose: ____ Comment: MEDICATION LIST PROVIDED FOR YOU IS A LIST OF YOUR CURRENT MEDICATIONS. PLEASE CARRY THIS WITH YOU AT ALL TIMES. aripiprazole (Abilify 10 mg Tab) By Mouth every day. aspirin (aspirin 81 mg oral tablet) By Mouth every day. celecoxib (CeleBREX 200 mg Cap) By Mouth 2 times a day. divalproex sodium (divalproex sodium 500 mg ER Tab) By Mouth every day. pantoprazole (Pantoprazole [address] Tab) By Mouth every day. pravastatin (pravastatin 80 mg Tab) By Mouth every day. pregabalin (Lyrica 100 mg Cap) 1 Capsules By Mouth 3 times a day. ropinirole (Requip 1 mg Tab) By Mouth 3 times a day. sildenafil (sildenafil 50 mg Tab) 1 Tablets By Mouth As Directed. 1 hour before sexual activity. Do not exceed 100 mg (2 tabs) in 24 hours. Cannot take with nitro products.. Refills: 3. tizanidine (tizanidine 4 mg oral capsule) By Mouth 3 times a day. trazodone (traZODONE 100 mg Tab) 1 Tablets By Mouth once a day (at bedtime). vortioxetine (Trintellix 20 mg oral tablet) By Mouth every day. Pharmacy Information: [facility] Isiah Comment: PATIENT EDUCATION INFORMATION Instructions: Medication Leaflets: You may receive a survey from [employer] asking you to rate your care experience. Your feedback is important and will help us understand what we do well and how we can improve the quality of care we provide to y (more content not included)... [facility] Insurance Correspondence Off iceon 05-28-2023 Insurance Correspondence Office [id number]# 1.00TIFF [facility] Insurance Correspondence Office [id number]# 1.00TIFF [facility] Interdisciplinary Note - Daniel e Manageron 05-28-2023 Interdisciplinary Note - [employer] CRM to room to discuss DC planning. Patient is awake, alert and oriented. Patient is from home with his spouse. She will transport [place]. Patient verified PCP, home DME and insurance. Patient is here as inpatient. Medicare form signed. Patient is here with Weakness, dizziness, and Covid [id number]. Patient is on isolation. Patient is assigned to Dr Spivey, see notes. Patient is on oxygen at 2L/NC. Patient does not wear any home oxygen. Patient will need weaned or a desat completed at [place]. Patient was offered DC needs for DME, HH and PM. Patient denied any DC needs. Patient was provided CRM contact, ivan edwards updated. Anticipated DC 05/30? CRM following [facility] Comment on above: Result Comment: Elec tronically Signed By: Dolly Copeland\.br\Date and Time Signed: 05/28/23 09:45 EDT Message from Medicareon 10-2 Message from Medicare [id number]# 1.00TIFF Normal [facility] Monitor Recordon 05-28-2023 Monitor Record [id number]# 1.00TIFF Normal [facility] No Panel InformationOrdered By: BASEREDA MICROBIOLOGY on 05-28-2023 Blood Culture Charcoal No growth at 2 da ys. Final to follow at 7 days. [facility] Blood Culture Charcoal No growth at 2 da ys. Final to follow at 7 days. [facility] Progress Note - Pharmacyon 1 Progress Note - Pharmacy Vancomycin Pharmacy to Dose Consult Note Indication: Bacteremia Goal Range: AUC/CARLOS A: 400 - 600 RECOMMENDATIONS/ PLAN: Pharmacy consulted for vancomycin dosing for YENI CONNOR, a 63 Years old, Male who is being treated with vancomycin for bacteremia. 1. Vancomycin therapy is still active, today is day 1 of treatment. Patient is receiving Vancomycin 1000 mg IV q12hr. 2. No Vancomycin level has been drawn for this dosing regimen. 3. Initial Vancomycin Dosing Regimen: Vancomycin 1000 mg IV Q12hr 4. The next paired levels are scheduled. Peak at 0400 on 05/30/23 and Trough at 1300 on 05/30/23. 5. A MRSA Nasal Swab is not appropriate at this time. We will follow patient renal function, vancomycin levels and doses with you during the course of therapy. Additional recommendations will appear in follow up notes. If you have any questions, please contact the pharmacy at [phone]. Age: 63 Years Allergies: No Known Medication Allergies Weight:Last Documented Weight and Type of Scale Used Last Documented Weight Weight Measured: 68.1 kg (05/27/23 17:52:00) Type of Scale Used Weight Measured Type of Scale: Bed Scale (digital) (05/27/23 17:15:00) Height: Last Documented Height/Length Last Documented Height/Length Height/Length Measured: 182 cm (05/27/23 17:52:00) CrCl: 89 mL/min Labs: WBC: 5.5 E9/L (05/28/23 06:12:00) RBC: 4.2 E12/L Low (05/28/23 06:12:00) HGB: 12.2 gm/dL Low (05/28/23 06:12:00) Hct: 36.2 % Low (05/28/23 06:12:00) MCV: 86.4 fL (05/28/23 06:12:00) MCH: 29.1 pg (05/28/23 06:12:00) MCHC: 33.7 gm/dL (05/28/23 06:12:00) RDW: 13.1 % (05/28/23 06:12:00) Platelet: 147 E9/L Low (05/28/23 06:12:00) MPV: 7.9 fL (05/28/23 06:12:00) Neutro Auto: 89.5 % High (05/28/23 06:12:00) Lymph Auto: 6.8 % Low (05/28/23 06:12:00) Towns Auto: 3.6 % Low (05/28/23 06:12:00) Eos Auto: 0 % (05/28/23 06:12:00) Basophil Auto: 0.1 % (05/28/23 06:12:00) Neutro Absolute: 4.9 E9/L (05/28/23 06:12:00) Lymph Absolute: 0.4 E9/L Low (05/28/23 06:12:00) Towns Absolute: 0.2 E9/L (05/28/23 06:12:00) Eos Absolute: 0 E9/L (05/28/23 06:12:00) Basophil Absolute: 0 E9/L (05/28/23 06:12:00) PT: 14.2 second(s) High (05/27/23 13:50:00) INR: 1.3 (05/27/23 13:50:00) PTT: 27.2 second(s) (05/27/23 13:50:00) Glucose Lvl: 107 mg/dL (05/28/23 06:12:00) BUN: 19 mg/dL (05/28/23 06:12:00) Creatinine: 0.8 mg/dL (05/28/23 06:12:00) eGFR: 98 mL/min/1.73 m2 (05/28/23 06:12:00) BUN/Creat Ratio: 24 High (05/28/23 06:12:00) Sodium Lvl: 140 mmol/L (05/28/23 06:12:00) Potassium Lvl: 4.2 mmol/L (05/28/23 06:12:00) Chloride: 98 mmol/L Low (05/28/23 06:12:00) CO2: 36 mmol/L High (05/28/23 06:12:00) AGAP: 10 mEq/L (05/28/23 06:12:00) Calcium Lvl: 9.1 mg/dL (05/28/23 06:12:00) Alk Phos: 58 Int._Unit/L (05/28/23 06:12:00) ALT: 10 Int._Unit/L (05/28/23 06:12:00) AST: 16 Int._Unit/L (05/28/23 06:12:00) Total Protein: 6.5 gm/dL (05/28/23 06:12:00) Albumin Lvl: 3.2 gm/dL Low (05/28/23 06:12:00) Globulin: 3.3 gm/dL (05/28/23 06:12:00) A/G Ratio: 1 Low (05/28/23 06:12:00) Bili Total: 0.5 mg/dL (05/28/23 06:12:00) Bili Direct: 0.2 mg/dL (05/28/23 06:12:00) Bili Indirect: 0.4 mg/dL (05/28/23 06:12:00) Troponin: 6 pg/mL Low (05/27/23 22:05:00) BNP: 81 pg/mL High (05/27/23 13:50:00) UA Spec Desc: Random Urine (05/28/23 00:53:00) UA Color: Yellow2 (05/28/23 00:53:00) UA Clarity: Clear2 (05/28/23 00:53:00) UA Spec Grav: 1.010 (05/28/23 00:53:00) UA pH: 6.5 (05/28/23 00:53:00) UA Protein: NEGATIVE1 (05/28/23 00:53:00) UA Glucose: NEGATIVE1 (05/28/23 00:53:00) UA Ketones: NEGATIVE1 (05/28/23 00:53:00) UA Bili: NEGATIVE1 (05/28/23 00:53:00) UA Blood: NEGATIVE1 (05/28/23 00:53:00) UA Nitrite: NEGATIVE1 (05/28/23 00:53:00) UA Urobilinogen: >=8.0 Abnormal (05/28/23 00:53:00) UA Leuk Est: NEGATIVE1 (05/28/23 00:53:00) UA RBC: 0-3 (05/28/23 00:53:00) UA Squam Epithelial: 0-2 (05/28/23 00:53:00) UA WBC: 0-5 (05/28/23 00:53:00) Influenzae A Ag: NEGATIVE1 (05/27/23 13:47:00) Influenzae B Ag: NEGATIVE1 (05/27/23 13:47:00) Rapid COVID Ag: Detected Abnormal (05/27/23 13:47:00) Rapid COV Int NEG Ctl: Pass (05/27/23 13:47:00) Rapid COV Int POS Ctl: Pass (05/27/23 13:47:00) pH Arterial: 7.404 (05/27/23 13:39:00) P CO2 Arterial: 58 mmHg High (05/27/23 13:39:00) P O2 Arterial: 94.5 mmHg (05/27/23 13:39:00) Base Excess Arterial: 9.7 mmol/L (05/27/23 13:39:00) HCO3 Arterial: 33.4 mmol/L High (05/27/23 13:39:00) Total Hgb Art: 11.7 gm/dL Low (05/27/23 13:39:00) FO2Hb Art: 97 % (05/27/23 13:39:00) FCOHb Art: 1.6 % (05/27/23 13:39:00) FMetHb Art: 0.3 % (05/27/23 13:39:00) O2 Sat Art: 98.8 % (05/27/23 13:39:00) information assistant+ Art: 138 mmol/L (05/27/23 13:39:00) cK+ Art: 4.3 mmol/L (05/27/23 13:39:00) cCa2+ Art: 4.56 mg/dL (05/27/23 13:39:00) cCl- Art: 95 mmol/L Low (05/27/23 13:39:00) cGlu Art: 100 mg/dL High (05/27/23 13:39:00) cLac Art: 0.9 mmol/L (05/27/23 13:39:00) AaDO2 Art: 35.4 mmHg High (05/27/23 13:39:00) a/A (more content not included)... Normal [facility] Troponin 9 Hr.on 05-28-2023 Troponin I.cardiac [Mass/Vol] 6.00 pg/mL Low 15.90-38.40 [facility] Comment on above: Result Comment: The 95% CI (Confidence Interval) PPV (Positive Predictive Value) for myocardial infarction in females is 38 pg/mL, in males 51 pg/mL. The results should be used in conjunction with clinical conditions of myocardial infarction. (Access High Sensitivity Troponin I Instructions For Use, Sebastian Arledia, March 2018) Performed By: #### 1 [id number] #### [facility] [address] [place] [address] UA With Cult Reflexon 2022 Bilirubin Ql (U) Negative Normal Negative [facility] Comment on above: Performed By: #### 2 296953, 2843788, 0946190, 13355823, 90785960, 2356289 #### [facility] [address] [place] [address] Clarity (U) CLEAR Normal Clear [facility] Comment on above: Performed By: #### 2 583702, 3491526, 0059350, 61260762, 19777174, 9618457 #### [facility] [address] [place] [address] Color (U) YELLOW Normal Yellow [facility] Comment on above: Performed By: #### 2 474582, 8050217, 1439517, 12136936, 03420407, 2502329 #### [facility] [address] [place] [address] Epithelial cells.squamous LM.HPF (Urine sed) [#/Area] 0-2 Normal 0-2 [facility] Comment on above: Performed By: #### 2 145251, 8886265, 6524114, 42961115, 20285973, 9500247 #### [facility] [address] [place] [address] Glucose Test strip (U) [Mass/Vol] Negative Normal Negative [facility] Comment on above: Performed By: #### 2 173443, 0360060, 0651860, 77837535, 59910461, 6337995 #### [facility] [address] [place] [address] Hemoglobin Ql (U) Negative Normal Negative [facility] Comment on above: Performed By: #### 2 777563, 3561513, 9264819, 73802486, 41619502, 8793013 #### [facility] [address] [place] [address] Ketones (U) [Mass/Vol] Negative Normal Negative [facility] Comment on above: Performed By: #### 2 720409, 0849797, 4594343, 09945703, 79644773, 9693862 #### [facility] [address] [place] [address] Young.plasma/Young .RBC (Bld) [Mass ratio] 0-3 Normal 0-3 [facility] Comment on above: Performed By: #### 2 663324, 0553837, 6779577, 25246827, 47735085, 9787009 #### [facility] [address] [place] [address] Nitrite Ql (U) Negative Normal Negative [facility] Comment on above: Performed By: #### 2 878900, 3479886, 6373629, 87021463, 64817419, 0345077 #### [facility] [address] [place] [address] pH (U) 6.5 [pH] Invalid Interpretation Code 5.0-9.0 [facility] Comment on above: Performed By: #### 2 003683, 2815540, 1055196, 15712674, 13042859, 4874063 #### [facility] [address] [place] [address] Protein (U) [Mass/Vol] Negative Normal Negative [facility] Comment on above: Performed By: #### 2 673104, 5167536, 6002961, 84265536, 73369541, 2745927 #### [facility] [address] [place] [address] Specific gravity (U) [Rel density] 1.010 Invalid Interpretation Code 1.005-1.030 [facility] Comment on above: Performed By: #### 2 953841, 5009874, 1731419, 63337578, 61714098, 4606510 #### [facility] [address] [place] [address] Type of Urine collection method Random Urine Normal [facility] Comment on above: Performed By: #### 2 008374, 7146090, 5106503, 65665463, 37258619, 1949312 #### [facility] [address] [place] [address] Urobilinogen Qn (U) >=8.0 Abnormal 0.0-1.0 [facility] Comment on above: Performed By: #### 2 276172, 8396428, 2703826, 19475577, 41032636, 1954197 #### [facility] [address] [place] [address] WBC Auto Ql (U) Negative Normal Negative [facility] Comment on above: Performed By: #### 2 889034, 6534524, 7831680, 23303498, 24547390, 3975478 #### [facility] [address] [place] [address] WBC LM.HPF (Urine sed) [#/Area] 0-5 Normal 0-5 [facility] Comment on above: Performed By: #### 2 751560, 6054640, 5954654, 24844128, 61598576, 7880771 #### [facility] [address] [id number] URINALYSISOrdered By: Kojo Klein on 05-28-2023 Bilirubin Ql (U) Negative (05/28/23 12:53 AM) Normal Negative [facility] UA Auto SS Clarity (U) Clear (05/28/23 12:53 AM) Normal Clear [facility] UA Auto SS Color (U) Yellow (05/28/23 12:53 AM) Normal Yellow [facility] UA Auto SS Epithelial cells.squamous LM.HPF (Urine sed) [#/Area] 0-2 /HPF Normal 0-2/HPF [facility] UA Aut o SS Glucose Test strip (U) [Mass/Vol] Negative (05/28/23 12:53 AM) Normal Negative [facility] UA Auto SS Hemoglobin Ql (U) Negative (05/28/23 12:53 AM) Normal Negative [facility] UA Auto SS Ketones (U) [Mass/Vol] Negative (05/28/23 12:53 AM) Normal Negative [facility] UA Auto SS Young.plasma/Young .RBC (Bld) [Mass ratio] 0-3 /HPF Normal 0-3/HPF [facility] UA Auto SS Nitrite Ql (U) Negative (05/28/23 12:53 AM) Normal Negative [facility] UA Auto SS pH (U) 6.5 *NA* (05/28/23 12:53 AM) Invalid Interpretation Code 5.0 - 9.0 [facility] UA Auto SS Protein (U) [Mass/Vol] Negative (05/28/23 12:53 AM) Normal Negative [facility] UA Auto SS Specific gravity (U) [Rel density] 1.010 *NA* (05/28/23 12:53 AM) Invalid Interpretation Code 1.005 - 1.030 [facility] UA Auto SS UA Spec Desc Random Urine (05/28/23 12:53 AM) Normal [facility] UA Auto SS Urobilinogen Qn (U) {Dani'U}/dL Invalid Interpretation Code 0.0 - 1.0 EU/dL [facility] UA Auto SS WBC Auto Ql (U) Negative (05/28/23 12:53 AM) Normal Negative [facility] UA Auto SS WBC LM.HPF (Urine sed) [#/Area] 0-5 /HPF Normal 0-5/HPF [facility] UA Auto SS eGFRon 05-28-2023 GFR/1.73 sq M.predicted among non-blacks MDRD (S/P/Bld) [Vol rate/Area] 98 mL/min/1.73 m2 Normal >=59 [facility] Comment on above: Order Comment: Order Added by Discern Expert. Result Comment: Script Manager radha kidney disease could be indicated at eGFR's of less than 60 mL/min/1.73m2. Kidney failure is indicated at less than 15 mL/min/1.73m2. Performed By: #### 2 400503, 4299238, 0820573, 76428560, 56005449, 1534445 #### [facility] [address] [place] [address] Auto Diffon 05-27-2023 Basophils/100 WBC (Bld) 0.0 % Normal 0.0-2.0 [facility] Comment on above: Order Comment: Order Added by Emma Expert. Performed By: #### 2 944233, 02399829, 87819726, 6348705, 89088568, 4924789, 59797809 ####[facility] [address] [place] [address] Basophils/Leukocytes Auto (Bld) [Pure # fraction] 0.0 E9/L Normal 0.0-0.2 [facility] Comment on above: Order Comment: Order Added by Discern Expert. Performed By: #### 2 716690, 80473331, 78643215, 8248924, 23267695, 1367184, 81504639 ####[facility] [address] [place] [address] Eosinophils/100 WBC (Bld) 0.1 % Normal 0.0-8.0 [facility] Comment on above: Order Comment: Order Added by Emma Expert. Performed By: #### 2 866441, 17917644, 48418234, 9583582, 57292995, 3218891, 01048235 ####[facility] [address] [place] [address] Eosinophils/Leukocytes Auto (Bld) [Pure # fraction] 0.0 E9/L Normal 0.0-0.5 [facility] Comment on above: Order Comment: Order Added by Discern Expert. Performed By: #### 2 849098, 33444616, 55834915, 4197511, 00527832, 1470079, 19162671 ####[address] [place] [address] Lymphocytes/100 WBC (Bld) 2.1 % Low 14.0-50.0 [facility] Comment on above: Order Comment: Order Added by Discern Expert. Performed By: #### 2 421610, 66170094, 30465241, 9445870, 17666635, 4788235, 54414230 ####[address] [address] Lymphocytes/Leukocytes Auto (Bld) [Pure # fraction] 0.2 E9/L Low 1.0-4.0 [facility] Comment on above: Order Comment: Order Added by Discern Expert. Performed By: #### 2 486553, 18142241, 53586080, 9522301, 48790352, 3823753, 43807588 ####[address] [place] [address] Monocytes/100 WBC (Bld) 4.6 % Normal 4.0-14.0 [facility] Comment on above: Order Comment: Order Added by Discern Expert. Performed By: #### 2 822772, 19558374, 69250465, 7279277, 56412139, 8472726, 70707545 ####[address] [place] [address] Monocytes/Leukocytes Auto (Bld) [Pure # fraction] 0.4 E9/L Normal 0.2-1.0 [facility] Comment on above: Order Comment: Order Added by Emma Expert. Performed By: #### 2 401676, 52933911, 88915854, 3448444, 98897822, 3514606, 96542199 ####[facility] [address] [place] [address] Neutrophils/100 WBC (Bld) 93.2 % High 36.0-75.0 [facility] Comment on above: Order Comment: Order Added by Discern Expert. Performed By: #### 2 223042, 91441071, 62005018, 4549244, 12545583, 7547617, 96629167 ####[facility] [address] [place] [address] Neutrophils/Leukocytes Auto (Bld) [Pure # fraction] 8.3 E9/L High 2.0-7.5 [facility] Comment on above: Order Comment: Order Added by Discern Expert. Performed By: #### 2 528743, 67143323, 13774018, 4640435, 40052228, 9790147, 08655327 ####[facility] [address] [place] [address] BMPon 05-27-2023 Creatinine [Mass/Vol] 1.0 mg/dL Normal 0.5-1.3 [facility] Comment on above: Performed By: #### 2 887208, 10603681, 83184673, 5709930, 03746667, 2011394, 13658043 ####[facility] [address] [place] [address] Urea nitrogen [Mass/Vol] 21 mg/dL Normal 5-21 [facility] Comment on above: Performed By: #### 2 185564, 56599386, 74209891, 1217143, 48285422, 2390358, 83741181 ####[facility] [address] [place] [address] Urea nitrogen/Creatinine [Mass ratio] 21 No Units High 10-20 [facility] Comment on above: Performed By: #### 2 761164, 65097805, 32765270, 8045022, 07922704, 3529335, 47712270 ####[facility] [address] [place] [address] Anion gap [Moles/Vol] 13 mmol/L Normal 6-16 [facility] Comment on above: Performed By: #### 2 795340, 75951181, 23133623, 6563382, 42723806, 6336989, 88678314 ####[facility] [address] [place] [address] Calcium [Mass/Vol] 8.4 mg/dL Low 8.9-11.1 [facility] Comment on above: Performed By: #### 2 646754, 15243116, 69829430, 5428599, 67019127, 6417400, 10426691 ####[facility] [address] [place] [address] Chloride [Moles/Vol] 95 mmol/L Low 101-111 [facility] Comment on above: Performed By: #### 2 636507, 60084215, 15363033, 8491174, 19982025, 8867006, 49972982 ####[facility] [address] [place] [address] CO2 [Moles/Vol] 31 mmol/L Normal 21-31 [facility] Comment on above: Performed By: #### 2 999261, 34575139, 39428056, 8195721, 77768023, 6441512, 15886228 ####[facility] [address] [place] [address] Glucose [Mass/Vol] 98 mg/dL Normal 55-199 [facility] Comment on above: Result Comment: If t his glucose result represents a fasting glucose, interpretation should refer to the following reference range: 55-99 mg/dL Performed By: #### 2 555407, 57993351, 25003927, 2193171, 23654586, 8498057, 82389587 ####[facility] [address] [place] [address] Potassium [Moles/Vol] 4.4 mmol/L Normal 3.5-5.3 [facility] Comment on above: Performed By: #### 2 899602, 83333389, 66217804, 8846545, 28421422, 9349826, 77763825 ####[facility] [address] [place] [address] Sodium [Moles/Vol] 135 mmol/L Normal 135-145 [facility] Comment on above: Performed By: #### 2 577409, 77733675, 56842650, 5513454, 05213229, 5352180, 76600982 ####[facility] [address] [place] [address] BNPon 05-27-2023 Int Ctr BNP Pass Normal [facility] Comment on above: Performed By: #### 2 314630, 14693021, 15543898, 5604129, 82984195, 7393014, 76833625 ####[address] [place] [address] Natriuretic peptide B (Bld) [Mass/Vol] 81 pg/mL High 5-80 [facility] Comment on above: Performed By: #### 2 510037, 06458866, 58977779, 9289560, 27463939, 4579374, 74681418 ####[address] [place] [address] Blood Gas Art, with Lytes, G myrna, [place] 05-27-2023 a/A Ratio Art 72.70 % Normal >=0.80 [facility] Comment on above: Performed By: #### 4 18806813 ####[facility] [address] [place] [address] AaDO2 Art 35.4 mmHg High 5.0-15.0 [facility] Comment on above: Performed By: #### 4 32084741 ####[address] [place] [address] Allens Test Not Applicable Normal [facility] Comment on above: Performed By: #### 4 41657590 ####[facility] [address] [place] [address] Base Excess Arterial 9.7 mmol/L Normal >=2.8 [facility] Comment on above: Performed By: #### 4 73725863 ####[facility] [address] [place] [address] cCa2+ Art 4.56 mg/dL Normal 4.40-5.30 [facility] Comment on above: Performed By: #### 4 18263154 ####[facility] [address] [place] [address] cCl- Art 95.0 mmol/L Low 101.0-111.0 [facility] Comment on above: Performed By: #### 4 28414722 ####[facility] [address] [place] [address] cGlu Art 100 mg/dL High 55-99 [facility] Comment on above: Performed By: #### 4 47072781 ####[facility] [address] [place] [address] cK+ Art 4.3 mmol/L Normal 3.5-5.3 [facility] Comment on above: Performed By: #### 4 48323142 ####[facility] [address] [place] [address] cLac Art .9 mmol/L Normal .5-2.2 [facility] Comment on above: Performed By: #### 4 63426001 ####[address] [place] [address] information assistant+ Art 138.0 mmol/L Normal 135.0-145.0 [facility] Comment on above: Performed By: #### 4 65555772 ####[facility] [address] [place] [address] Drawn by trs Invalid Interpretation Code [facility] Comment on above: Performed By: #### 4 58924910 ####[address] [place] [address] FCOHb Art 1.6 % Normal 1.5-4.9 [facility] Comment on above: Result Comment: Refe rence range Nonsmoker <1.5% Smoker <5.0% Heavy Smoker <9.0% Performed By: #### 4 90760460 ####[facility] [address] [place] [address] FIO2 BG 21.0 Invalid Interpretation Code [facility] Comment on above: Performed By: #### 4 04492731 ####[facility] [address] [place] [address] FMetHb Art 0.3 % Normal 0.0-1.9 [facility] Comment on above: Performed By: #### 4 93145152 ####[address] [place] [address] FO2Hb Art 97.0 % Normal 93.0-100.0 [facility] Comment on above: Performed By: #### 4 [id number] ####[address] [address] HCO3 (Bld) [Moles/Vol] 33.4 mmol/L High 22.0-26.0 [facility] Comment on above: Performed By: #### 4 64467364 ####[facility] [address] [place] [address] Hemoglobin (Bld) [Mass/Vol] 11.7 g/dL Low 12.0-17.0 [facility] Comment on above: Performed By: #### 4 17891362 ####[facility] [address] [place] [address] Oxygen saturation in Blood 98.8 % Normal 95.0-100.0 [facility] Comment on above: Performed By: #### 4 84926094 ####[facility] [facility] [address] [place] [address] P CO2 Arterial 58.0 mmHg High 35.0-45.0 [facility] Comment on above: Performed By: #### 4 [id number] ####[address] [place] [address] P O2 Arterial 94.5 mmHg Normal 80.0-100.0 [facility] Comment on above: Performed By: #### 4 [id number] ####[facility] [address] [place] [address] pH Arterial 7.404 Normal 7.350-7.450 [facility] Comment on above: Performed By: #### 4 [id number] ####[facility] [address] [place] [address] Sample Site R Radial Normal [facility] Comment on above: Performed By: #### 4 [id number] ####[facility] [address] [place] [address] Sample Type Arterial Draw Normal [facility] Comment on above: Performed By: #### 4 [id number] ####[facility] [address] [place] [address] CBC w/ Auto Diffon Erythrocyte distribution width (RBC) [Ratio] 13.1 % Normal 10.9-14.2 [facility] Comment on above: Performed By: #### 2 [id number], [id number], [id number], [id number], 39975933, 0993748, [id number] ####[facility] [address] [place] [address] Hematocrit (Bld) [Volume fraction] 35.4 % Low 37.7-49.0 [facility] Comment on above: Performed By: #### 2 014848, [id number], [id number], 8477979, 84922088, 7007796, [id number] ####[facility] [address] [place] [address] Hemoglobin (Bld) [Mass/Vol] 11.8 g/dL Low 13.5-17.5 [facility] Comment on above: Performed By: #### 2 [id number], [id number], 68824085, 7063192, 83591011, 5589044, [id number] ####[facility] [address] [place] [address] MCH (RBC) [Entitic mass] 29.2 pg Normal 27.0-34.0 [facility] Comment on above: Performed By: #### 2 621498, 65364247, 02238380, 6477201, 72336401, 6121169, 06865644 ####[facility] [address] [place] [address] MCHC (RBC) [Mass/Vol] 33.5 g/dL Normal 31.4-36.0 [facility] Comment on above: Performed By: #### 2 780010, [id number], 08643954, 2041875, 50184920, 2110899, 63760337 ####[facility] [address] [place] [address] MCV (RBC) [Entitic vol] 87.2 fL Normal 80.0-100.0 [facility] Comment on above: Performed By: #### 2 857344, 28924411, 02436734, 0126605, 41051822, 8102247, 69155986 ####[facility] [address] [place] [address] Platelet mean volume (Bld) [Entitic vol] 8.1 fL Normal 6.4-10.8 [facility] Comment on above: Performed By: #### 2 603593, [id number], 31380962, 6226790, 23232170, 1276758, 83646641 ####[facility] [address] [place] [address] Platelets (Bld) [#/Vol] 123.0 E9/L Low 150.0-500.0 [facility] Comment on above: Performed By: #### 2 070513, 09124214, 46476012, 9441287, 77586578, 6071565, 56721957 ####[facility] [address] [place] [address] RBC (Bld) [#/Vol] 4.1 E12/L Low 4.3-5.9 [facility] Comment on above: Performed By: #### 2 913325, 86379213, 10929254, 2590911, 99964441, 1139467, 38853554 ####[facility] [address] [place] [address] WBC corrected for nucl RBC Auto (Bld) [#/Vol] 8.9 E9/L Normal 4.0-11.0 [facility] Comment on above: Performed By: #### 2 751194, 09499919, 22884554, 8204097, 20455023, 3782166, 01257951 ####[facility] [address] [place] [address] CHEMISTRYOrdered By: SYSTEM SYSTEM on 05-27-2023 Troponin I.cardiac [Mass/Vol] 6.00 pg/mL Low 15.90 - 38.40 pg/mL [facility] Comment on above: Interpretive Data: T he 95% CI (Confidence Interval) PPV (Positive Predictive Value) for myocardial infarction in females is 38 pg/mL, in males 51 pg/mL. The results should be used in conjunction with clinical conditions of myocardial infarction. (Access High Sensitivity Troponin I Instructions For Use, Drop Messages, March 2018) Troponin I.cardiac [Mass/Vol] 6.00 pg/mL Low 15.90 - 38.40 pg/mL [facility] Comment on above: Interpretive Data: T he 95% CI (Confidence Interval) PPV (Positive Predictive Value) for myocardial infarction in females is 38 pg/mL, in males 51 pg/mL. The results should be used in conjunction with clinical conditions of myocardial infarction. (Access High Sensitivity Troponin I Instructions For Use, Drop Messages, March 2018) Troponin I.cardiac [Mass/Vol] 6.40 pg/mL Low 15.90 - 38.40 pg/mL [facility] Remisol Comment on above: Interpretive Data: T he 95% CI (Confidence Interval) PPV (Positive Predictive Value) for myocardial infarction in females is 38 pg/mL, in males 51 pg/mL. The results should be used in conjunction with clinical conditions of myocardial infarction. (Access High Sensitivity Troponin I Instructions For Use, Drop Messages, March 2018) CHEMISTRYOrdered By: Comfort wood on 05-27-2023 Natriuretic peptide B (Bld) [Mass/Vol] 81 pg/mL High 5 - 80 pg/mL [facility] COAGULATIONOrdered By: Lori Geronimo on 05-27-2023 aPTT Coag (PPP) [Time] 27.2 s Normal 25.1 - 36.5 second(s) [facility] Comment on above: Interpretive Data: Bethany rich 15 days - 4 weeks 1 - 5 months 6 - 11 months 1 - 5 years 6 - 10 years 11 - 17 years PTT Mean: 35.4 (27.6-45.6) Mean: 33.5 (24.8-40.7) Mean: 32.4 (25.1-40.7) Mean: 31.6 (24.0-39.2) Mean: 31.6 (26.9-38.7) Mean: 31.0 (24.6-38.4) Pediatric Reference ranges were obtained from a study by Victorino Leslie et al. prepared from 1437 samples obtained at 7 different centers using the same coagulation reagent and instrumentation as [facility]. Currently there are no coagulation studies available worldwide for children to 14 days, and no normal ranges. Heparin therapeutic range (represented by Anti-Factor Xa activity of 0.2 - 0.4 U/mL) corresponds to PTT of 56.6 - 109.0 sec. INR Coag (PPP) [Relative time] 1.3 {INR} Invalid Interpretation Code [facility] Comment on above: Interpretive Data: I NR results are specifically intended to assess patients stabilized on long-term Anticoagulation therapy suggested INR s Less Intensive Anticoagulation 2.0 3.0 Conventional Range 3.0 4.5 PT Coag (PPP) [Time] 14.2 s High 9.4 - 1 2.5 second(s) [facility] Comment on above: Interpretive Data: 1 5 days - 4 weeks 1 - 5 months 6 -11 months 1-5 years 6-10 years 11 -17 years Mean: 11.2 (9.5-12.6) Mean: 11.0 (9.7-12.8) Mean: 11.0 (9.8-13.0) Mean: 11.3 (9.9-13.4) Mean: 11.7 (10.0-14.6) Mean: 11.8 (10.0 - 14.1) Pediatric Reference ranges were obtained from a study by Victorino Leslie et al. prepared from 1437 samples obtained at 7 different centers using the same coagulation reagent and instrumentation as [facility]. Currently there are no coagulation studies available worldwide for children to 14 days, and no normal ranges. Consent for Treatmenton 05-03 Consent for Treatment [id number]# 1.00TIFF Normal [facility] ED Clinical Summaryon 2022 ED Clinical Summary [place] [id number] ED Clinical Summary Person Information Name: YENI CONNOR [facility] Age: 63 Years : 1960 Sex: Male Language: Chilean PCP: SAMMY AGUILERA DO Marital Status: Visit Id: Visit Reason: Cough; Dizziness; Weakness or fatigue; WEAKNESS, DIZZINESS Speciality: Acuity: 1 Enc Type: Observation Med Service: Emergency Arrival: 05/27/2023 13:12:53 Discharge: LOS: 000 03:47 Checkin: 05/27/2023 13:12:53 Checkout: 05/27/2023 16:59:23 Dispo Type: Admitted as IP to this [facility] EVENTS: Event Name Event Status Request Date/Time Start Date/Time Complete Date/Time Arrive Complete 05/27/2023 13:12:53 05/27/2023 13:12:53 05/27/2023 13:12:53 Document Home Meds Request 05/27/2023 13:12:53 Triage Complete 05/27/2023 13:12:53 05/27/2023 13:18:10 05/27/2023 13:18:10 Bed Assign Complete 05/27/2023 13:15:43 05/27/2023 13:15:43 05/27/2023 13:15:43 Dr Exam Complete 05/27/2023 13:15:43 05/27/2023 13:25:31 05/27/2023 13:25:31 RN Exam Complete 05/27/2023 13:15:43 05/27/2023 13:36:47 05/27/2023 13:36:47 Patient Care Request 05/27/2023 13:18:11 Patient Isolation Request 05/27/2023 13:18:11 EKG Complete 05/27/2023 13:19:50 05/27/2023 13:26:11 Registration Complete 05/27/2023 13:25:31 05/27/2023 14:04:45 05/27/2023 14:04:45 Dr Exam Complete 05/27/2023 13:28:40 05/27/2023 13:28:40 05/27/2023 13:28:40 Pending Labs Request 05/27/2023 13:33:10 Lab Inlab 05/27/2023 13:33:10 Meds Admin Complete 05/27/2023 13:33:10 05/27/2023 13:48:47 Patient Care Request 05/27/2023 13:33:10 X-Ray Complete 05/27/2023 13:33:10 05/27/2023 14:26:05 05/27/2023 14:40:12 RT Request 05/27/2023 13:33:10 Swab Complete 05/27/2023 13:33:10 05/27/2023 14:25:07 RT Tx/ABG Request 05/27/2023 13:33:11 RT Tx/ABG Request 05/27/2023 13:33:11 Pending Labs Complete 05/27/2023 13:35:00 05/27/2023 13:52:44 RT Tx/ABG Request 05/27/2023 13:35:00 Pending Labs Request 05/27/2023 13:41:05 Lab Request 05/27/2023 13:41:05 Urine Collect Request 05/27/2023 13:41:05 Pending Labs Complete 05/27/2023 14:03:02 05/27/2023 14:03:02 05/27/2023 14:18:51 Lab Complete 05/27/2023 14:03:02 05/27/2023 14:03:02 05/27/2023 14:18:51 Pending Labs Complete 05/27/2023 14:03:54 05/27/2023 14:03:54 05/27/2023 14:03:54 Reg Complete Request 05/27/2023 14:04:45 Pending Labs Complete 05/27/2023 14:07:22 05/27/2023 14:07:22 05/27/2023 14:07:29 Lab Complete 05/27/2023 14:07:22 05/27/2023 14:07:22 05/27/2023 14:07:29 Meds Admin Complete 05/27/2023 14:11:06 05/27/2023 14:14:48 Wet Read Request 05/27/2023 14:40:12 Reg Bed Request Complete 05/27/2023 16:00:50 05/27/2023 16:00:50 05/27/2023 16:00:50 Consult Request 05/27/2023 16:01:46 Hospitalist Consult Request 05/27/2023 16:01:46 Bed Request Request 05/27/2023 16:03:07 Reg Bed Request Complete 05/27/2023 16:03:07 05/27/2023 16:40:22 05/27/2023 16:40:22 Admit Request 05/27/2023 16:03:07 Patient Care Request 05/27/2023 16:40:23 Patient Care Request 05/27/2023 16:40:23 Patient Care Request 05/27/2023 16:40:23 Patient Care Request 05/27/2023 16:40:24 ADDRESS: [address] [place] [address] [phone] [facility] DOC NOTES: MEDICAL INFORMATION: Prescriptions Given: Medications to Continue with No Changes Other Medications aripiprazole (Abilify 10 mg Tab) By Mouth every day. aspirin (aspirin 81 mg oral tablet) By Mouth every day. celecoxib (CeleBREX 200 mg Cap) By Mouth 2 times a day. divalproex sodium (divalproex sodium 500 mg ER Tab) By Mouth every day. pantoprazole (Pantoprazole [address] Tab) By Mouth every day. pravastatin (pravastatin 80 mg Tab) By Mouth every day. pregabalin (Lyrica 100 mg Cap) 1 Capsules By Mouth 3 times a day. ropinirole (Requip 1 mg Tab) By Mouth 3 times a day. sildenafil (sildenafil 50 mg Tab) 1 Tablets By Mouth As Directed. 1 hour before sexual activity. Do not exceed 100 mg (2 tabs) in 24 hours. Cannot take with nitro products.. Refills: 3. tizanidine (tizanidine 4 mg oral capsule) By Mouth 3 times a day. vortioxetine (Trintellix 20 mg oral tablet) By Mouth every day. PATIENT EDUCATION INFORMATION: Instructions: Follow up: DIAGNOSIS: Acute hypoxemic respiratory failure; COVID-19 Normal [facility] ED Note-Physicianon 05-27-20 23 ED Note-Physician Basic Information Time Seen: Barney Duncan PA-C 05/27/2023 13:25 Chief Complaint Pt has had weakness, dizziness, and fatigue x 3 days. Has also been coughing. sick at home with COVID. Pt. states home test was negative. Has hx of mora can. History of Present Illness 63-year-old male presents ED with complaints of shortness of breath, cough, dizziness, weakness, fatigue. Patient reports his symptoms been worsening over the last 3 days. Patient also endorses fevers chills, coughing, congestion. Patient denies any chest pain. Patient without any history of asthma or COPD, is not on oxygen at home. Patient does have at home who is sick with COVID. Patient did have a negative COVID swab at home. Patient does have a history of pancreatic cancer, however this is reported to be in remission. Review of Systems Full 10 system ROS performed. Pt denies symptoms except as noted above in the HPI. Physical Exam Vitals & Measurements T: 37.6 ?C(Oral) HR: 79(Peripheral) RR: 16 BP: 125/67 SpO2: 100% HT: 182 cm WT: 68.1 kg BMI: 20.56 VITALS: I have reviewed the triage vital signs. GENERAL: Fatigued appearing male NEURO: Somnolent, arousable with voice. Moves all extremities. Face is symmetric and expressive. EYES: PERRL. No scleral icterus or conjunctival injection. No discharge. HENT: Normocephalic, atraumatic. Hearing is grossly intact. Nares grossly patent and without discharge. Mucous membranes moist. NECK: No JVD. Patient moves neck without restriction. CARDIO: Rhythm regular. Normal rate. No murmur, rub, or gallop. Pulses equal bilaterally in the upper and lower extremity. No lower extremity edema. PULM: Lungs clear to auscultation in all gama. No wheezes, rales, or rhonchi. No conversational dyspnea. No splinting, stridor, or accessory muscle use. GI/: Abdomen is soft and non-tender. Normoactive bowel sounds. EXTREMITIES: Symmetric muscle bulk. No joint swelling. No clubbing, cyanosis, or deformity. SKIN: Warm and dry. Normal turgor. No rash or lesions appreciated. PSYCH: Mood, affect, and interaction is appropriate to the setting. Medical Decision Making MEDICAL DECISION MAKING Number and Complexity of Problems Differential Diagnosis: [] [facility] Data External documents reviewed: [] My EKG interpretation: [] My CT interpretation: [] My X-ray interpretation: [] My Ultrasound interpretation: [] Decision rules/scores evaluated: [] Discussed with: [] Treatment and Disposition ED Course: Patient presents ED with complaint of cough, fatigue over the last 3 days. Patient is hypoxic on presentation the ED with oxygen 85%. Patient oxygen improved to nasal cannula. Work-up in ED reviewed and noted. Patient does have positive COVID-19 swab. No evidence of pneumonia on chest x-ray. Patient is hypercapnic on his ABG, however this does appear to be chronic and compensated. Due to new hypoxemia and COVID-19 diagnosis, patient is appropriate for admission to the hospital. Patient discussed with hospitalist who agreed admit patient to medicine. Patient admitted to medicine. Shared decision making: [] Code status: [] Assessment/Plan Acute hypoxemic respiratory failure (J96.01: Acute respiratory failure with hypoxia) COVID-19 (U07.1: COVID-19) Orders: albuterol-ipratropium , 3 mL, Soln-Inh, Inhalation, Once, Stop date 05/27/23 13:32:00 EDT, STAT, Start date 05/27/23 13:32:00 EDT Sodium Chloride 0.9% intravenous solution, 1,000 mL, Soln-IV, IV, Once, Stop date 05/27/23 14:10:00 EDT, STAT, Start date 05/27/23 14:10:00 EDT, Infuse over 61, minute(s) Automated Diff B-Type Natriuretic Peptide Basic Metabolic Panel Blood Culture Charcoal Blood Culture Charcoal Blood Gas Art, with Lytes, Gluc, Lact CBC w/ Auto Diff Continuous Pulse Oximetry ED Cardiac Monitoring ED Physician consult Hospitalist for continued care eGFR Extra SST Tube Influenza A&B Ag Oxygen Therapy PT & PTT Rapid COVID Antigen ([facility]) Saline Lock Insert Troponin 0 Hr. Troponin 3 Hr. Troponin 6 Hr. Troponin 9 Hr. XR Chest Single View Disposition Plan Discharge Prescription List Prescriptions No active prescription medications Follow-up No qualifying data available Attestation Patient seen and evaluated by the physician press assistant and feeder. Attending physician was present in the emergency department and supervised care. This visit was performed by both the physician and an APC. I performed all aspects of the MDM as documented. This report was transcribed using voice recognition software. Every effort was made to ensure accuracy, however, inadvertently computerized cabin man mistakes may be present. Appropriate healthcare PPE was used in evaluating this patient. The patient was placed in a mask. The healthcare provider was wearing mask, gloves, and utilizing proper hand hygiene. All equipment was properly cleansed Problem List/Past Medical History Ongoing Elevated PSA Erectile (more content not included)... Normal [facility] Comment on above: Result Comment: Elec tronically Signed By: Barney Duncan PA-C\.br\Date and Time Signed: 05/27/23 16:21 EDT\.br\Electronically Co-Signed By: Samy Benjamin DO\.br\Date and Time Co-Signed: 05/27/23 17:04 EDT ED Patient Education Noteon 05-27-2023 ED Patient Education Note Normal [facility] ED Patient Summaryon 023 ED Patient Summary [place] [id number] Patient Discharge Instructions Person Information Name: YENI CONNOR Age: 63 Years Arrival Date: 05/27/2023 13:12:53 Discharge Diagnosis: Acute hypoxemic respiratory failure; COVID-19 Primary Care Physician: SAMMY AGUILERA DO Provider Information Primary Provider: Samy Benjamin DO Advanced Ed Teacher:Barney Duncan PA-C The exam and treatment you received in the Emergency Department were for an urgent problem and are not intended as complete care. It is important that you follow up with a doctor, nurse practitioner, or physician?s press assistant and feeder for ongoing care. If your symptoms become worse or you do not improve as expected and you are unable to reach your usual health care provider, you should return to the Emergency Department. We are available 24 hours a day. YENI CONNOR has been given the following list of patient education materials, prescriptions and follow-up instructions: Follow-up Instructions: In the event that this physician does not participate in your insurance network, please consult with your insurance company to find a nearby participating provider. Patient Education Materials: A MESSAGE TO ALL PATIENTS REGARDING OPIOIDS PRESCRIPTION OPIOIDS: WHAT YOU NEED TO KNOW Prescription opioids can be used to help relieve zgpwzsme-tv-hskqmn pain and are often prescribed following a surgery or injury, or for certain health conditions. These medications can be an important part of the treatment but also come with serious risks. It is important to work with your healthcare provider to make sure you are getting the safest, most effective care. WHAT ARE THE RISKS AND SIDE EFFECTS OF OPIOID USE? Prescription opioids carry serious risks of addiction and overdose, especially with prolonged use. An opioid overdose, often marked by slowed breathing, can cause sudden . The use of prescription opioids can have a number of side effects as well, even when taken as directed: ? Tolerance?meaning you might need to take more of the medication for the same pain relief ? Physical dependence?meaning you have symptoms of withdrawal when a medication is stopped ? Increased sensitivity to pain ? Constipation ? Nausea, vomiting, and dry mouth ? Sleepiness and dizziness ? Confusion ? Depression ? Low levels of testosterone that can result in lower sex drive, energy, and strength ? Itching and sweating RISKS ARE GREATER WITH: ? History of drug misuse, substance use disorder, or overdose ? Mental health conditions (such as depression or anxiety) ? Sleep apnea ? Older age (65 years and older) ? Avoid alcohol while taking prescription opioids. Also, unless specifically advised by your health care provider, medications to avoid include: ? Benzodiazepines (such as Xanax or Valium) ? Muscle relaxants (such as Soma or Flexeril) ? Hypnotics (such as Ambien or Lunesta) ? Other prescription opioids KNOW YOUR OPTIONS Talk to your health care provider about ways to manage your pain that don?t involve prescription opioids. Some of these options may actually work better and have fewer risks and side effects. Options may include: ? Pain relievers such as acetaminophen, ibuprofen, and naproxen ? Some medication that are also used for depression or seizures ? Physical therapy and exercise ? Cognitive behavioral therapy, a psychological, goal-directed approach, in which patients learn how to modify physical, behavioral, and emotional triggers of pain and stress. IF YOU ARE PRESCRIBED OPIOIDS FOR PAIN: ? Never take opioids in greater amounts or more often than prescribed. ? Follow up with your primary health care provider. o Work together to create a plan on how to manage your pain. o Talk about ways to help manage your pain that don?t involve prescription opioids. o Talk about any and all concerns and side effects. ? Help prevent misuse and abuse o Never sell or share prescription opioids. o Never use another person?s prescription opioids. ? Store prescription opioids in a secure place and out of reach of others (this may include visitors, children, friends, and family). ? Safely dispose of unused prescription opioids: Find your community drug take-back program or your pharmacy mail-back program, or flush them down the toilet, following guidance from the Food and Drug Administration (www.fda.gov/Drugs/Re sourcesForYou). ? Visit www.cdc.gov/drugoverd ose to learn about the risks of opioids abuse and overdose. ? If you believe you may be struggling with addiction, tell your health resident caregiver and ask for guidance or call [facility] National Helpline at 9-765-369-XUEI. d Source: [place] Department of Health and Human Services/Center for Disease Control & Prevention [facility] Medications (more content not included)... Normal [facility] FT Blood GasesOrdered By: Reynold Hu on 05-27-2023 a/A Ratio Art 72.70 % Normal >=0.80% FT Resp Auto SS AaDO2 Art 35.4 mm[Hg] High 5.0 - 15.0 mmHg [facility] Resp Auto SS Allens Test Not Applicable (05/27/23 1:39 PM) Normal FT Resp Auto SS Base Excess Arterial 9.7 mmol/L Normal >=2.8mmol/L FT C Resp Auto SS cCa2+ Art 4.56 mg/dL Normal 4.40 - 5.30 mg/dL [facility] Resp Auto SS cCl- Art 95.0 mmol/L Low 101.0 - 111.0 mmol/L [facility] Resp Auto SS cGlu Art 100 mg/dL High 55 - 99 mg/dL [facility] Resp Auto SS cK+ Art 4.3 mmol/L Normal 3.5 - 5.3 mmol/L [facility] Resp Auto SS cLac Art 0.9 mmol/L Normal 0.5 - 2.2 mmol/L [facility] Resp Auto SS information assistant+ Art 138.0 mmol/L Normal 135.0 - 145.0 mmol/L [facility] Resp Auto SS Drawn by trs Invalid Interpretation Code [facility] Resp Auto SS FCOHb Art 1.6 % Normal 1.5 - 4.9 % [facility] Resp Auto SS Comment on above: Interpretive Data: R eference range Nonsmoker <1.5% Smoker <5.0% Heavy Smoker <9.0% FMetHb Art 0.3 % Normal 0.0 - 1.9 % [facility] Resp Auto SS FO2Hb Art 97.0 % Normal 93.0 - 100.0 % [facility] Resp Auto SS HCO3 (Bld) [Moles/Vol] 33.4 mmol/L High 22.0 - 26.0 mmol/L [facility] Resp Auto SS Hemoglobin (Bld) [Mass/Vol] 11.7 g/dL Low 12.0 - 17.0 gm/dL [facility] Resp Auto SS P CO2 Arterial 58.0 mm[Hg] High 35.0 - 45.0 mmHg [facility] Resp Auto SS P O2 Arterial 94.5 mm[Hg] Normal 80.0 - 100.0 mmHg [facility] Resp Auto SS pH (Bld) 7.404 [pH] Normal 7.350 - 7.450 [facility] Resp Auto SS Sample Site R Radial (05/27/23 1:39 PM) Normal [facility] Resp Auto SS Sample Type Arterial Draw (05/27/23 1:39 PM) Normal [facility] Resp Auto SS Sodium [Moles/Vol] 21.0 mmol/L Invalid Interpretation Code [facility] Resp Auto SS Influenza A&B Agon 3 Influenzae A Ag Negative Normal Negative [facility] Comment on above: Performed By: #### 2 [id number], [id number], [id number], [id number], [id number], [id number] #### [facility] [address] [place] [address] Influenzae B Ag Negative Normal Negative [facility] Comment on above: Result Comment: Test sensitivity and specificity vary for age group, specimen type, antigen types, and prevalence of disease. Test results must be evaluated in conjunction with other clinical data available to the physician. Individuals who received nasally administered Influenza A vaccine may have positive test results up to 3 days after vaccination. Performed By: #### 2 [id number], [id number], [id number], [id number], [id number], [id number] #### [facility] [address] [place] [address] MICRO OTHER TESTSOrdered By: Lori Geronimo on 05-27-2023 Influenzae A Ag Negative (05/27/23 1:47 PM) Normal Negative [facility] Man Sero Influenzae B Ag Negative 1 (05/27/23 1:47 PM) Normal Negative [facility] Sero Comment on above: Interpretive Data: T est sensitivity and specificity vary for age group, specimen type, antigen types, and prevalence of disease. Test results must be evaluated in conjunction with other clinical data available to the physician. Individuals who received nasally administered Influenza A vaccine may have positive test results up to 3 days after vaccination. Rapid COV Int NEG Ctl Pass (05/27/23 1:47 PM) Normal [facility] Man Sero Rapid COV Int POS Ctl Pass (05/27/23 1:47 PM) Normal [facility] Sero SARS-CoV+SARS-CoV-2 (COVID-19) Ag IA.rapid Ql (Resp) Detected 16 *ABN* (05/27/23 1:47 PM) Invalid Interpretation Code Not Detected [facility] Man Sero Comment on above: Interpretive Data: T he [employer] System for Rapid Detection of SARS-CoV-2 is a chromatographic digital immunoassay intended for the direct and qualitative detection of SARS-CoV-2 nucleocapsid antigens in nasal swabs from individuals who are suspected of COVID-19 by their healthcare provider within the first five days of the onset of symptoms. Negative results should be treated as presumptive, do not rule out SARS-CoV-2 infection and should not be used as the sole basis for treatment or patient management decisions, including infection control decisions. Negative results should be considered in the context of a patient s recent exposures, history and the presence of clinical signs and symptoms consistent with COVID-19, and confirmed with a molecular assay, if necessary, for patient management. For in vitro diagnostic use. In the [place], only for use under an Emergency Use Authorization. In the [place], this test has not been FDA cleared or approved; this test has been authorized by FDA under an EUA for use by authorized laboratories; use by laboratories certified under the CLIA, 42 U.S.C. 263a, that meet requirements to perform moderate, high, or waived complexity tests and at the Point of Care (POC), i.e., in patient care settings operating under a CLIA Certificate of Waiver, Certificate of Compliance, or Certificate of Accreditation. This test has been authorized only for the detection of proteins from SARS-CoV-2, not for any other viruses or pathogens; and, in the [place], this test is only authorized for the duration of the declaration that circumstances exist justifying the authorization of emergency use of in vitro diagnostics for detection and/or diagnosis of the virus that causes COVID-19 under Section 564(b)(1) of the Act, 21 U.S.C. 360bbb-3(b)(1), unless the authorization is terminated or revoked sooner. Monitor Recordon 05-27-2023 Monitor Record [id number]# 1.00TIFF Normal [facility] No Panel InformationOrdered By: Marie Macario on 05-27-2023 Blood Culture Charcoal Staphylococcus species coagulase negative In 2 of 2 blood culture bottles drawn. Isolated from aerobic and anaerobic bottles Preliminary result of gram positive cocci in clusters called to Dr. Spivey 05/28/2023 12:28:37 by KD. Also alerted that his second set of blood cultures looks to be a different organism. [facility] Blood Culture Charcoal Gram Positive Miguel s resembling diphtheroids and Staphylococcus species coagulase negative In 2 of 2 blood culture bottles drawn. Isolated from aerobic and anaerobic bottles Preliminary gram stain result of gram positive rods given to Dr. Spivey 05/28/2023 12:28:37. [facility] PT & PTTon 05-27-2023 aPTT Coag (PPP) [Time] 27.2 second(s) Normal 25.1-36.5 [facility] Comment on above: Result Comment: Para meter 15 days - 4 weeks 1 - 5 months 6 - 11 months 1 - 5 years 6 - 10 years 11 - 17 years PTT Mean: 35.4 (27.6-45.6) Mean: 33.5 (24.8-40.7) Mean: 32.4 (25.1-40.7) Mean: 31.6 (24.0-39.2) Mean: 31.6 (26.9-38.7) Mean: 31.0 (24.6-38.4) Pediatric Reference ranges were obtained from a study by Victorino Leslie et al. prepared from 1437 samples obtained at 7 different centers using the same coagulation reagent and instrumentation as [facility]. Currently there are no coagulation studies available worldwide for children to 14 days, and no normal ranges. Heparin therapeutic range (represented by Anti-Factor Xa activity of 0.2 - 0.4 U/mL) corresponds to PTT of 56.6 - 109.0 sec. Performed By: #### 2 [id number], [id number], [id number], [id number], [id number], [id number], [id number] ####[facility] [address] [place] [address] INR Coag (PPP) [Relative time] 1.3 {INR} Invalid Interpretation Code [facility] Comment on above: Result Comment: INR results are specifically intended to assess patients stabilized on long-term Anticoagulation therapy suggested INR?s ?Less Intensive Anticoagulation? 2.0 ? 3.0 Conventional Range 3.0 ? 4.5 Performed By: #### 2 [id number], [id number], [id number], 5288518, [id number], 0357600, [id number] ####[facility] [address] [place] [address] PT Coag (PPP) [Time] 14.2 second(s) High 9.4-12.5 [facility] Comment on above: Result Comment: 15 d ays - 4 weeks 1 - 5 months 6 -11 months 1- 5 years 6-10 years 11 -17 years Mean: 11.2 (9.5-12.6) Mean: 11.0 (9.7-12.8) Mean: 11.0 (9.8-13.0) Mean: 11.3 (9.9-13.4) Mean: 11.7 (10.0-14.6) Mean: 11.8 (10.0 - 14.1) Pediatric Reference ranges were obtained from a study by Victorino Leslie et al. prepared from 1437 samples obtained at 7 different centers using the same coagulation reagent and instrumentation as [facility]. Currently there are no coagulation studies available worldwide for children to 14 days, and no normal ranges. Performed By: #### 2 [id number], [id number], [id number], 8968820, [id number], [id number], [id number] ####[facility] [address] [place] [address] Pre-Arrival Noteon Pre-Arrival Note Pre-Arrival Summary Name: , [facility] Current Date: 05/27/2023 13:37:03 EDT Gender: Male Date of : Age: 63 Pre-Arrival Type: EMS ETA: 05/27/2023 13:34:00 EDT Primary Care Physician: Presenting Problem: weakness, dizziness Pre-Arrival User: Tiffanie Rocha RN Referring Source: Location: Completion Date/Time: 05/27/2023 13:05:00 [facility] Emergency Department Pre-Hospital Report Form Vital Signs: 99/65 80 18 99 Pre-Hospital Report: weakness, dizziness, hx pancan. Treatment in Route: Response to Treatment: Misc. Issues: Normal [facility] Rapid COVID Antigen ([facility])on 05-27-2023 Rapid COV Int NEG Ctl Pass Normal [facility] Comment on above: Performed By: #### 2 [id number], [id number], [id number], [id number], [id number], [id number] #### [facility] [address] [place] [address] Rapid COV Int POS Ctl Pass Normal [facility] Comment on above: Performed By: #### 2 [id number], [id number], [id number], [id number], [id number], [id number] #### [facility] [address] [place] [address] SARS-CoV+SARS-CoV-2 (COVID-19) Ag IA.rapid Ql (Resp) Detected Abnormal Not Detected [facility] Comment on above: Result Comment: The [employer]? System for Rapid Detection of SARS-CoV-2 is a chromatographic digital immunoassay intended for the direct and qualitative detection of SARS-CoV-2 nucleocapsid antigens in nasal swabs from individuals who are suspected of COVID-19 by their healthcare provider within the first five days of the onset of symptoms. Negative results should be treated as presumptive, do not rule out SARS-CoV-2 infection and should not be used as the sole basis for treatment or patient management decisions, including infection control decisions. Negative results should be considered in the context of a patient?s recent exposures, history and the presence of clinical signs and symptoms consistent with COVID-19, and confirmed with a molecular assay, if necessary, for patient management. For in vitro diagnostic use. In the [place], only for use under an Emergency Use Authorization. In the [place], this test has not been FDA cleared or approved; this test has been authorized by FDA under an EUA for use by authorized laboratories; use by laboratories certified under the CLIA, 42 U.S.C. ?263a, that meet requirements to perform moderate, high, or waived complexity tests and at the Point of Care (POC), i.e., in patient care settings operating under a CLIA Certificate of Waiver, Certificate of Compliance, or Certificate of Accreditation. This test has been authorized only for the detection of proteins from SARS-CoV-2, not for any other viruses or pathogens; and, in the [place], this test is only authorized for the duration of the declaration that circumstances exist justifying the authorization of emergency use of in vitro diagnostics for detection and/or diagnosis of the virus that causes COVID-19 under Section 564(b)(1) of the Act, 21 U.S.C. ? 360bbb-3(b)(1), unless the authorization is terminated or revoked sooner. Performed By: #### 2 [id number], [id number], 9657748, 53054913, [id number], [id number] #### [facility] [address] [place] [address] [facility] Reportability Response - Public Health {[id number]}XML Normal [facility] Troponin 0 Hr.on 05-27-2023 Troponin I.cardiac [Mass/Vol] 6.90 pg/mL Low 15.90-38.40 [facility] Comment on above: Result Comment: The 95% CI (Confidence Interval) PPV (Positive Predictive Value) for myocardial infarction in females is 38 pg/mL, in males 51 pg/mL. The results should be used in conjunction with clinical conditions of myocardial infarction. (Access High Sensitivity Troponin I Instructions For Use, [employer], March 2018) Performed By: #### 2 [id number], [id number], [id number], 7152130, [id number], 5402796, [id number] ####[facility] [address] [place] [address] Troponin 3 Hr.on 05-27-2023 Troponin I.cardiac [Mass/Vol] 6.40 pg/mL Low 15.90-38.40 [facility] Comment on above: Result Comment: The 95% CI (Confidence Interval) PPV (Positive Predictive Value) for myocardial infarction in females is 38 pg/mL, in males 51 pg/mL. The results should be used in conjunction with clinical conditions of myocardial infarction. (Access High Sensitivity Troponin I Instructions For Use, [employer], March 2018) Performed By: #### 2 [id number], [id number], 7557719, [id number], [id number], [id number] #### [facility] [address] [place] [address] Troponin 6 Hr.on 05-27-2023 Troponin I.cardiac [Mass/Vol] 6.00 pg/mL Low 15.90-38.40 [facility] Comment on above: Result Comment: The 95% CI (Confidence Interval) PPV (Positive Predictive Value) for myocardial infarction in females is 38 pg/mL, in males 51 pg/mL. The results should be used in conjunction with clinical conditions of myocardial infarction. (Access High Sensitivity Troponin I Instructions For Use, Sebastian Francia, March 2018) Performed By: #### 2 [id number], [id number], 5572677, [id number], [id number], [id number] #### [facility] [address] [place] [address] XR Chest Single Viewon 05-27 XR Chest Single View Exam Date/Time: 05/27/2023 14:40 EDT Reason for Exam: Cough Report IMPRESSION: NO RADIOGRAPHIC EVIDENCE OF ACUTE INTRATHORACIC PROCESS. EXAM: XR Chest Single View History: Cough. Technique: Portable AP view of the chest. Comparison: None available Findings: The cardiomediastinal silhouette is within normal limits. No pneumothorax, pleural effusion, or consolidation. No acute osseous abnormality. Ordering Provider: Barney Duncan FINAL REPORT Dictated: 05/27/2023 3:03 pm Attila Pink DO Signed (Electronic Signature): 05/27/2023 3:03 pm Signed by: Attila Pink DO Transcribed by: MONSTER Technologist: RAFIA Technical Comments Radiation Dose: Ka,r in mGy = na DAP = na Normal [facility] eGFRon 05-27-2023 GFR/1.73 sq M.predicted among non-blacks MDRD (S/P/Bld) [Vol rate/Area] 84 mL/min/1.73 m2 Normal >=59 [facility] Comment on above: Order Comment: Order added by Discern Expert. Result Comment: Script Manager radha kidney disease could be indicated at eGFR's of less than 60 mL/min/1.73m2. Kidney failure is indicated at less than 15 mL/min/1.73m2. Performed By: #### 2 [id number], 66781772, 27547021, 9777747, 64310923, 3024174, [id number] ####[facility] [address] [place] [address] Screenson 03-18-2023 Screens [id number]# 1.00CD:127 Normal [facility] Screens [id number]# 1.00CD:127 Normal [facility] CHEMISTRYOrdered By: SYSTEM SYSTEM on 03-17-2023 Prostate specific Ag [Mass/Vol] ng/mL Normal 0.1 - 3.5 ng/mL [facility] Remisol Consent for Treatmenton 03-02 Consent for Treatment [id number] .00CD:127 Normal [facility] PSA Totalon 03-17-2023 Prostate specific Ag [Mass/Vol] ng/mL Normal 0.1-3.5 [facility] Comment on above: Result Comment: The concentration of PSA determined by different manufacturers can vary due to differences in assay methods and reagent specificity. Values obtained from different assay methods cannot be used interchangeably. The methodology used for this result was chemiluminescence using [employer]'s Access [employer] PSA reagent. Performed By: #### 1 [id number] #### [facility] [address] [place] [address] Patient Educationon 03-17-20 Patient Education Obstetrics and Gynecology Kegel Exercises Kegel exercises can help strengthen your pelvic floor muscles. The pelvic floor is a group of muscles that support your rectum, small intestine, and bladder. In females, pelvic floor muscles also help support the uterus. These muscles help you control the flow of urine and stool (feces). Kegel exercises are painless and simple. They do not require any equipment. Your provider may suggest Kegel exercises to: ? Improve bladder and bowel control. ? Improve sexual response. ? Improve weak pelvic floor muscles after surgery to remove the uterus (hysterectomy) or after , in females. ? Improve weak pelvic floor muscles after prostate gland removal or surgery, in males. Kegel exercises involve squeezing your pelvic floor muscles. These are the same muscles you squeeze when you try to stop the flow of urine or keep from passing gas. The exercises can be done while sitting, standing, or lying down, but it is best to vary your position. Ask your health care provider which exercises are safe for you. Do exercises exactly as told by your health care provider and adjust them as directed. Do not begin these exercises until told by your health care provider. Exercises How to do Kegel exercises: 1. Squeeze your pelvic floor muscles tight. You should feel a tight lift in your rectal area. If you are a female, you should also feel a tightness in your vaginal area. Keep your stomach, buttocks, and legs relaxed. 2. Hold the muscles tight for up to 10 seconds. 3. Breathe normally. 4. Relax your muscles for up to 10 seconds. 5. Repeat as told by your health care provider. Repeat this exercise daily as told by your health care provider. Continue to do this exercise for at least 4?6 weeks, or for as long as told by your health care provider. You may be referred to a physical therapist who can help you learn more about how to do Kegel exercises. Depending on your condition, your health care provider may recommend: ? Varying how long you squeeze your muscles. ? Doing several sets of exercises every day. ? Doing exercises for several weeks. ? Making Kegel exercises a part of your regular exercise routine. This information is not intended to replace advice given to you by your health care provider. Make sure you discuss any questions you have with your health care provider. Document Revised: 11/27/2021 Document Reviewed: 11/27/2021 [employer] Patient Education ? 2022 [employer]. [facility] Urology Office/Clinic Noteon 03-17-2023 Urology Office/Clinic Note Chief Complaint 3 month follow up w/PSA HPI Staff 3m PSA DX: Hx of Prostate Cancer, Mixed Incontinence & ED S/p open radical prostatectomy (nerve sparing) by DLS and PRW 05/09/20 *Started on Sildenafil 50mg PRN at time of last encounter. has not used since it was prescribed PSA 03/12/23- <0.13 IPSS 12 IAN 0 Dysuria: _denies Incomplete bladder emptying: denies Hematuria: denies visible blood Frequency: every 2 hours Urgency: denies Nocturia: _once a night Stream: denies hesitation, semi strong stream Leaking: _denies Post void dripping: _denies Wearing pads/ Depends: denies Urge incontinence: denies Stress incontinence: denies Incontinence without Sensory Awareness: denies Abdominal pain: denies Flank pain: denies History of Present Illness Tests reviewed: reviewed UA and PSA. I have reviewed the previous health record information and history for this patient from . I have reviewed and verified the staff HPI to be accurate for this encounter. There have been no associated fever, chills, flank pain, or blood in the urine. Denies any urinary infections since last encounter. Review of Systems PHQ Score Initial Depression Screen Score: 0 ROS - Provider Constitutional: denies weight loss, denies hot flashes. Eyes: denies eye problems. Gastrointestinal: denies nausea, denies vomiting. Cardiovascular: denies chest pain or angina. Integumentary: no dryness Musculoskeletal: denies musculoskeletal symptoms. ENMT: denies otolaryngeal symptoms. Respiratory: no shortness of breath. Heme/Lymph: denies easy bleeding tendency, denies easy bruising tendency. Psychiatric: no confusion, no anxiety. Genitourinary: See HPI. Physical Exam Vitals & Measurements HR: 74(Peripheral) BP: 128/82 HT: 72 in HT: 183 cm WT: 72 kg WT: 158.4 lb BMI: 21.5 General Appearance: alert, no distress, well nourished, well developed male. Assessment/Plan 63 yo male with history of intermediate risk prostate cancer here for follow up PSA 1. History of prostate cancer (Z85.46: Personal history of malignant neoplasm of prostate) TRUS/bx 02/29/20 - Kael 7 (3+4) x 3 cores and Presto 6 (3+3) x 5 cores. S/p open radical prostatectomy (nerve sparing) by DLS and PRW 05/09/20 - pT2, pNX Prostate adenocarcinoma, grade group 2, tertiary pattern 5 <5%. Neg margins. PSA: 05/06/21 - 0.05 11/04/21 - 0.05 11/30/22 - <0.13 03/12/23 - <0.13 Discussed potential slight elevation is PSA, discussed implications. Advised pt to go to [facility] for blood work for a more sensitive detection to determine if his PSA is rising at all due to [facility] changing their lab cutoffs (<0.13 is the lowest reportable value). -Obtain PSA today in office. -If stable from 2021, follow up 1 yr with PSA or sooner if needed. Pt understands and agrees with plan. 2. Mixed incontinence (N39.46: Mixed incontinence) UA today negative for blood and infection. IPSS 12(12). Urination has remained the same since radical. Has leakage every now and then, if he waits too long and with coughing. Always voids before bed. Pt states there is no change in sxs since prior OV. Pt states he waits 2hr before voiding. Discussed bladder irritants. -Offered bladder med, pt not interested at this time -timed voids, kegels 3. Erectile dysfunction after radical prostatectomy (N52.31: Erectile dysfunction following radical prostatectomy) Has not been able to achieve erection after surgery. Discussed options for ED, including oral medications, CORI, and intracorporal injection therapy. Last took nitro product 7-8 yrs ago. No hx of [place] IAN 0 Pt was to start taking Sildenafil 50mg PRN, has not had the opportunity to take it. I spent 20 minutes today with the patient: reviewing tests in preparation to see and discuss them with the patient, documenting clinical information in the electronic health records, and care coordination. Time was spent performing a medical exam and evaluation, counseling and educating the patient, and ordering tests in caring for the patient. Follow-up With When Contact Information Brian LUGO, PEDRO Bernal, URO In 1 year Additional Instructions: w/PSA Patient Education Kegel Yvette Vaughn, personally scribed for Dr. Torres on 03/17/2023 11:23:54. . Documentation recorded by the scribeYvette, accurately reflects the services(s) I performed and decisions made by me. Authenticated by Dr. Torres on 03/17/2023 21:47:38. Problem List/Past Medical History Ongoing Elevated PSA Erectile dysfunction after radical prostatectomy Essential hypertension Frequent urination History of prostate cancer Microscopic hematuria Mixed incontinence Post-void dribbling Prostate cancer Proteinuria Recurrent major depression Urge incontinence Historical No qualifying data Procedure/Surgical History Radical retropubic prostatectomy (more content not included)... Normal [facility] Comment on above: Result Comment: Elec tronically Signed By: Kayla Torres MD\.br\Date and Time Signed: 03/17/23 21:48 EDT\.br\Electronically Co-Signed By: Yvette Lira\.br\Date and Time Co-Signed: 03/17/23 11:24 EDT Lab Reportson 03-14-2023 Lab Reports [id number] .00CD:127 Normal [facility] Ambulatory Visit Summaryon 0 12-02-2022 Ambulatory Visit Summary YENI CONNOR :1960 Visit Date:12/02/2022 Ambulatory Visit Instructions Your Diagnosis History of prostate cancer Mixed incontinence Erectile dysfunction after radical prostatectomy Your Care Team Attending Physician - Kayla Torres MD Primary Care Physician - SAMMY AGUILERA DO This Is Your Medications List Contact prescribing physician if questions or concerns aripiprazole (Abilify 10 mg Tab) aspirin (aspirin 81 mg oral tablet) celecoxib (CeleBREX 200 mg Cap) divalproex sodium (divalproex sodium 500 mg ER Tab) pantoprazole (Pantoprazole [address] Tab) pravastatin (pravastatin 80 mg Tab) pregabalin (Lyrica 100 mg Cap) ropinirole (Requip 1 mg Tab) tizanidine (tizanidine 4 mg oral capsule) vortioxetine (Trintellix 20 mg oral tablet) Procedures Performed Radical retropubic prostatectomy (05/09/2020), Transrectal biopsy of prostate (02/29/2020), External beam radiotherapy (2007), Colonoscopy, Tonsillectomy. Discharge Vitals Heart Rate (Peripheral) 68 Respiratory Rate 16 Blood Pressure 128/70 Height 183 cm Height 72 in Weight 77 kg Weight 169.4 lb BMI 22.99 What to do next You Need to Schedule the Following Appointments Follow Up with Kayla Torres MD, URL, URO When: Where: Medications What How Much When Instructions Unchanged aripiprazole (Abilify 10 mg Tab) By Mouth Every day Contact prescribing physician if questions or concerns Unchanged aspirin (aspirin 81 mg oral tablet) By Mouth Every day Contact prescribing physician if questions or concerns Unchanged celecoxib (CeleBREX 200 mg Cap) By Mouth 2 times a day Contact prescribing physician if questions or concerns Unchanged divalproex sodium (divalproex sodium 500 mg ER Tab) By Mouth Every day Contact prescribing physician if questions or concerns Unchanged pantoprazole (Pantoprazole [address] Tab) By Mouth Every day Contact prescribing physician if questions or concerns Unchanged pravastatin (pravastatin 80 mg Tab) By Mouth Every day Contact prescribing physician if questions or concerns Unchanged pregabalin (Lyrica 100 mg Cap) 1 Capsules By Mouth 3 times a day Contact prescribing physician if questions or concerns Unchanged ropinirole (Requip 1 mg Tab) By Mouth 3 times a day Contact prescribing physician if questions or concerns Unchanged tizanidine (tizanidine 4 mg oral capsule) By Mouth 3 times a day Contact prescribing physician if questions or concerns Unchanged vortioxetine (Trintellix 20 mg oral tablet) By Mouth Every day Contact prescribing physician if questions or concerns Allergies No Known Medication Allergies Problems Ongoing - Any problem that you are currently receiving treatment for. Elevated PSA Erectile dysfunction after radical prostatectomy Essential hypertension Frequent urination History of prostate cancer Microscopic hematuria Mixed incontinence Post-void dribbling Prostate cancer Proteinuria Recurrent major depression Urge incontinence Education Materials Cancer Screening for Men A cancer screening is a test or exam that checks for cancer. Your health care provider will recommend specific cancer screenings based on your age, medical history (including risk factors), and family history of cancer. Work with your health care provider to create a cancer screening schedule that protects your health. Who should have screening? All men should be considered for screening of certain cancers, including colorectal cancer, prostate cancer, lung cancer, and skin cancer. Your health care provider may recommend screenings for other types of cancer if: ? You had cancer before. ? You have a family member with cancer. ? You have abnormal genes that could increase the risk of cancer. ? You have risk factors for certain cancers, such as current or past use of tobacco products, or being overweight. When you should be screened for cancer depends on: ? Your age. ? Your medical history and your family's medical history. ? Certain lifestyle factors, such as smoking or other use of tobacco products. ? Environmental exposure, such as to asbestos. How is screening done? Colorectal cancer All adults should have screenings starting at age 45 and continuing until age 75. Your health care provider may recommend screening before age 45. You will have tests every 1?10 years, depending on your results and the type of screening test. People at increased risk should start screening at an earlier age. Talk with your health care provider about which screening test is right for you and how often you should be screened. Colorectal cancer screening looks for cancer or for growths called polyps that often form before cancer starts. Tests to look for cancer or polyps include: ? Colonoscopy or flexible sigmoidoscopy. For these procedures, a flexible tube with a small camera is inserted into the rectum. ? CT colonography. This te (more content not included)... Normal [facility] Patient Educationon 12-03-19 Patient Education Oncology Cancer Screening for Men A cancer screening is a test or exam that checks for cancer. Your health care provider will recommend specific cancer screenings based on your age, medical history (including risk factors), and family history of cancer. Work with your health care provider to create a cancer screening schedule that protects your health. Who should have screening? All men should be considered for screening of certain cancers, including colorectal cancer, prostate cancer, lung cancer, and skin cancer. Your health care provider may recommend screenings for other types of cancer if: ? You had cancer before. ? You have a family member with cancer. ? You have abnormal genes that could increase the risk of cancer. ? You have risk factors for certain cancers, such as current or past use of tobacco products, or being overweight. When you should be screened for cancer depends on: ? Your age. ? Your medical history and your family's medical history. ? Certain lifestyle factors, such as smoking or other use of tobacco products. ? Environmental exposure, such as to asbestos. How is screening done? Colorectal cancer All adults should have screenings starting at age 45 and continuing until age 75. Your health care provider may recommend screening before age 45. You will have tests every 1?10 years, depending on your results and the type of screening test. People at increased risk should start screening at an earlier age. Talk with your health care provider about which screening test is right for you and how often you should be screened. Colorectal cancer screening looks for cancer or for growths called polyps that often form before cancer starts. Tests to look for cancer or polyps include: ? Colonoscopy or flexible sigmoidoscopy. For these procedures, a flexible tube with a small camera is inserted into the rectum. ? CT colonography. This test uses X-rays and a contrast dye to check the colon for polyps. If a polyp is found, you may need to have a colonoscopy so the polyp can be located and removed. Tests to look for cancer in the stool (feces) include: ? Guaiac-based fecal occult blood test (FOBT). This test can find blood in stool. It can be done at home with a kit. ? Fecal immunochemical test (FIT). This test can find blood in stool. For this test, you will need to collect stool samples at home. ? Stool DNA test. This test looks for blood in stool and any changes in DNA that can lead to colon cancer. For this test, you will need to collect a stool sample at home and send it to a lab. Prostate cancer Prostate cancer screening for men with average risk may start at age 50. Men with risk factors may need to be screened earlier, at ages 40?45. Talk with your health care provider about whether screening is right for you and, if so, how often you should be screened. Prostate cancer screening is done with blood tests and a digital rectal exam. During this exam, a health care provider uses a gloved finger to check prostate size. You may need to be screened for prostate cancer if: ? You have risk factors for prostate cancer, such as being or having a close family member with prostate cancer. ? You have had gene changes or a genetic condition that was passed on to you from a parent (inherited). These gene changes or genetic conditions include BRCA1 or BRCA2 gene mutations or Hawk syndrome. ? You have symptoms of prostate cancer, such as problems urinating or problems getting or keeping an erection (erectile dysfunction). When you have been screened for prostate cancer, future screening may be recommended based on the results of your blood tests. Lung cancer Lung cancer screening is done with a CT scan that looks for abnormal changes in the lungs. Discuss lung cancer screening with your health care provider if you are 50?80 years old and if any of the following apply to you: ? You currently smoke. ? You used to smoke heavily. ? You have a smoking history of 1 pack of cigarettes a day for 20 years or 2 packs a day for 10 years. ? You have quit smoking within the past 15 years. You may need to be screened every year if you smoke heavily or if you used to smoke. Skin cancer Skin cancer screening is done by checking the skin for unusual moles or spots and any changes in existing moles. Your health care provider should check your skin for signs of skin cancer at every physical exam. You should check your skin every month and tell your health care provider right away if anything looks unusual. Men with a qiixoz-ulfr-dcdizy risk for skin cancer may want to see a channel specialist (general partner) for an annual body check. What are the benefits of screening? Cancer screening is done to look for cancer in the very early stages, before it spreads and becomes harder to treat and before you would start to notice symptoms. Finding cancer early improves the chances of successful treatment. It ma (more content not included)... Normal [facility] Screenson 12-02-2022 Screens [id number]# 1.00CD:127 Normal [facility] Urology Office/Clinic Noteon 12-02-2022 Urology Office/Clinic Note Chief Complaint 1yr PSA HPI Staff Former DLS pt here today for 1yr PSA due to Prostate Cancer & Urge Incontinence. S/P Radical Prostatectomy done 05/09/2020. *No Urology Medications. PSA done 11/30/22- <0.13 Frequency. q1hr. For a few months. Running water causes increased frequency, occasionally loses bladder control at that time, has been that way for yrs. Pt biggest concern. Denies pain/burning/blood. Denies all other urinary concerns at this time. History of Present Illness Tests reviewed: reviewed UA, PSA. I have reviewed the previous health record information and history for this patient from Dr. Renee. I have reviewed and verified the staff HPI to be accurate for this encounter. There have been no associated fever, chills, flank pain, or blood in the urine. Denies any urinary infections since last encounter. Review of Systems PHQ Score Initial Depression Screen Score: 0 ROS - Provider Constitutional: denies weight loss, denies hot flashes. Eyes: denies eye problems. Gastrointestinal: denies nausea, denies vomiting. Cardiovascular: denies chest pain or angina. Integumentary: no dryness Musculoskeletal: denies musculoskeletal symptoms. ENMT: denies otolaryngeal symptoms. Respiratory: no shortness of breath. Heme/Lymph: denies easy bleeding tendency, denies easy bruising tendency. Psychiatric: no confusion, no anxiety. Genitourinary: See HPI. Physical Exam Vitals & Measurements HR: 68(Peripheral) RR: 16 BP: 128/70 HT: 72 in HT: 183 cm WT: 77 kg WT: 169.4 lb BMI: 22.99 General Appearance: alert, no distress, well nourished, well developed male. Genitourinary: Flank Pain: none. Bladder: nonpalpable. Assessment/Plan Prior DLS pt. 1. History of prostate cancer (Z85.46: Personal history of malignant neoplasm of prostate) PSA: 05/06/21 - 0.05 11/04/21 - 0.05 11/30/22 - <0.13 TRUS/bx 02/29/20 - Presto 7 (3+4) x 3 cores and Kael 6 (3+3) x 5 cores. S/p open radical prostatectomy (nerve sparing) by DLS and PRW 05/09/20 - Prostate adenocarcinoma, grade group 2, tertiary pattern 5 <5%, pT2, pNX. Neg margins. Discussed slight elevation is PSA, discussed implications. Will cont to closely monitor PSA doubling times Follow up 3 mos with PSA or sooner if needed. Pt understands and agrees with plan. -If PSA continues to rise, will obtain PSMA PET scan 2. Mixed incontinence (N39.46: Mixed incontinence) UA today negative for blood and infection. IPSS 12. Urination has remained the same since radical. Has leakage every now and then, if he waits too long and with coughing. Always voids before bed. Offered bladder med, pt not interested at this time. -timed voids, kegels 3. Erectile dysfunction after radical prostatectomy (N52.31: Erectile dysfunction following radical prostatectomy) Has not been able to achieve erection after surgery. Discussed options for ED, including oral medications, CORI, and intracorporal injection therapy. Last took nitro product 7-8 yrs ago. No hx of [place] -Start Sildenafil 50 mg prn, do not exceed 100 mg in 24 hours. SEs discussed. Pt understands this med cannot be taken with nitro products and he should go to the ER should he experience priapism. Educated pt on proper oral ED med usage. Rx sent to [facility]. Follow-up With When Contact Information Brian LUGO, Kayla Dubose, URL, URO Additional Instructions: 3 mos with PSA Patient Education Cancer Screening for Men I, Jazmine Bear, personally scribed for Dr. Torres on 12/02/2022 09:03:28. . Documentation recorded by the scribe, Jazmine Bear, accurately reflects the services(s) I performed and decisions made by me. Authenticated by Dr. Torres on 12/02/2022 18:44:36. Problem List/Past Medical History Ongoing Elevated PSA Erectile dysfunction after radical prostatectomy Essential hypertension Frequent urination History of prostate cancer Microscopic hematuria Mixed incontinence Post-void dribbling Prostate cancer Proteinuria Recurrent major depression Urge incontinence Historical No qualifying data Procedure/Surgical History Radical retropubic prostatectomy (05/09/2020), Transrectal biopsy of prostate (02/29/2020), External beam radiotherapy (2007), Colonoscopy, Tonsillectomy. Medications Abilify 10 mg Tab, Oral, Daily aspirin 81 mg oral tablet, Oral, Daily CeleBREX 200 mg Cap, Oral, BID divalproex sodium 500 mg ER Tab, Oral, Daily Lyrica 100 mg Cap, 100 mg= 1 cap(s), Oral, TID Pantoprazole [address] Tab, Oral, Daily pravastatin 80 mg Tab, Oral, Daily Requip 1 mg Tab, Oral, TID tizanidine 4 mg oral capsule, Oral, TID Trintellix 20 mg oral tablet, Oral, Daily Allergies No Known Medication Allergies Social History Alcohol - Denies Alcohol Use, 02/13/2020 Tobacco Former smoker, quit more than 30 days ago Tobacco Use:. Never Smokeless Tobacco Use:. Cigarettes, Stopped age 28 Years. Household tobacco concerns: N (more content not included)... [facility] Comment on above: Result Comment: Elec tronically Signed By: Kayla Torres MD\.br\Date and Time Signed: 12/02/22 18:44 EDT\.br\Electronically Co-Signed By: Jazmine Bear\.br\Date and Time Co-Signed: 12/02/22 09:03 EDT Lab Reportson 12-01-2022 Lab Reports [id number]# 1.00CD:127 [facility] CBC AUTO DIFFon 12-10-2021 BASO # 0.0 103/ul Normal 0.0-0.1 [facility] Comment on above: Performed By: #### C BC #### [facility] [address] [address] [address] Nida Castillo Basophils/100 WBC (Bld) 0.6 % Normal 0.2-2.0 [facility] Comment on above: Performed By: #### C BC #### [facility] [address] [address] [address] Nida Castillo EO # 0.1 103/ul Normal 0.0-0.7 [facility] Comment on above: Performed By: #### C BC #### [facility] [address] [place] [address] Dr. Nida Castillo Eosinophils/100 WBC (Bld) 2.3 % Normal 0.9-7.0 [facility] Comment on above: Performed By: #### C BC #### [facility] [address] [place] [address] Dr. Nida Castillo Erythrocyte distribution width (RBC) [Ratio] 13.6 % Normal 11.0-15.0 [facility] Comment on above: Performed By: #### C BC #### [facility] [address] [place] [address] Dr. Nida Castillo Hematocrit (Bld) [Volume fraction] 39.7 % Critically low 42.0-54.0 [facility] Comment on above: Performed By: #### C BC #### [facility] [address] [place] [address] Dr. Nida Castillo Hemoglobin (Bld) [Mass/Vol] 12.4 g/dL Critically low 14.0-18.0 [facility] Comment on above: Performed By: #### C BC #### [facility] [address] [place] [address] Dr. Nida Castillo IG # 0.01 10e3/ul Normal 0.00-0.03 [facility] Comment on above: Performed By: #### C BC #### [facility] [address] [place] [address] Dr. Nida Castillo IG % 0.3 % Normal 0.0-0.5 [facility] Comment on above: Performed By: #### C BC #### [facility] [address] [place] [address] Dr. Nida Castillo LYMPH # 0.6 103/ul Critically low 1.2-3.8 [facility] Comment on above: Performed By: #### C BC #### [facility] [address] [place] [address] Dr. Nida Castillo Lymphocytes/100 WBC (Bld) 17.7 % Critically low 20.5-60.0 [facility] Comment on above: Performed By: #### C BC #### [facility] [address] [place] [address] Dr. Nida Castillo MANUAL DIFF REQ NO Normal [facility] Comment on above: Performed By: #### C BC #### [facility] [address] [place] [address] Dr. Nida Castillo MCH (RBC) [Entitic mass] 28.1 pg Normal 25.9-34.0 [facility] Comment on above: Performed By: #### C BC #### [facility] [address] [place] [address] Dr. Nida Castillo MCHC (RBC) [Mass/Vol] 31.2 g/dL Normal 29.9-35.2 [facility] Comment on above: Performed By: #### C BC #### [facility] [address] [place] [address] Dr. Nida Castillo MCV (RBC) [Entitic vol] 90.0 fL Normal 80.0-94.0 [facility] Comment on above: Performed By: #### C BC #### [facility] [address] [place] [address] Dr. Nida Castillo MONO # 0.2 103/ul Critically low 0.3-0.8 [facility] Comment on above: Performed By: #### C BC #### [facility] [address] [place] [address] Dr. Nida Castillo Monocytes/100 WBC (Bld) 6.8 % Normal 1.7-12.0 [facility] Comment on above: Performed By: #### C BC #### [facility] [address] [place] [address] Dr. Nida Castillo NEUT # 2.5 103/ul Normal 1.4-6.5 [facility] Comment on above: Performed By: #### C BC #### [facility] [address] [address] [address] Nida Castillo Neutrophils/100 WBC (Bld) 72.3 % Normal 43.0-75.0 [facility] Comment on above: Performed By: #### C BC #### [facility] [address] [place] [address] Dr. Nida Castillo Platelet mean volume (Bld) [Entitic vol] 10.7 fL Normal 9.5-13.5 [facility] Comment on above: Performed By: #### C BC #### [facility] [address] [place] [address] Dr. Nida Castillo PLT 177 103/ul Normal 150-450 [facility] Comment on above: Performed By: #### C BC #### [facility] [address] [place] [address] Dr. Nida Castillo RBC 4.41 106/ul Critically low 4.70-6.10 [facility] Comment on above: Performed By: #### C BC #### [facility] [address] [place] [address] Dr. Nida Castillo WBC 3.5 103/ul Critically low 4.0-11.0 [facility] Comment on above: Performed By: #### C BC #### [facility] [address] [place] [address] Dr. Nida Castillo LIPID PROFILEon 12-10-2021 CHOL-HDL RATIO NORM SEE BELOW Normal [facility] Comment on above: Result Comment: 3.3 - 4.4 LOW RISK 4.4 - 7.1 AVERAGE RISK 7.1 - 11.0 MODERATE RISK >11.0 HIGH RISK Performed By: #### L IPID, CMP #### [facility] [address] [address] [address] Nida Castillo Cholesterol [Mass/Vol] 204 mg/dL Critically high <=200 [facility] Comment on above: Performed By: #### L IPID, CMP #### [facility] [id number] Nida Castillo Cholesterol in HDL [Mass/Vol] 80 mg/dL Critically high 40-60 [facility] Comment on above: Performed By: #### L IPID, CMP #### [facility] [address] [address] [address] Nida Castillo Cholesterol in LDL [Mass/Vol] 112.8 mg/dL Normal [facility] Comment on above: Performed By: #### L IPID, CMP #### [facility] [address] [address] [address] Nida Castillo Cholesterol.total/Chol esterol in HDL [Mass ratio] 2.6 {ratio} Normal [facility] Comment on above: Performed By: #### L IPID, CMP #### [facility] [address] [address] [address] Nida Castillo HDL NORMAL > or = 60 mg/dl - LO W CARDIOVASCULAR RISK <40 mg/dl - HIGH CARDIOVASCULAR RISK Normal [facility] Comment on above: Performed By: #### L IPID, CMP #### [facility] [address] [address] [address] Nida Castillo LDL CALC NORMAL SEE BELOW Normal [facility] Comment on above: Result Comment: <100 mg/dl OPTIMAL 100 - 129 mg/dl NEAR OR ABOVE OPTIMAL 130 - 159 mg/dl BORDERLINE HIGH 160 - 189 mg/dl HIGH >190 mg/dl VERY HIGH Performed By: #### L IPID, CMP #### [facility] [address] [address] [address] Nida Castillo Triglyceride [Mass/Vol] 56 mg/dL Normal <=150 [facility] Comment on above: Performed By: #### L IPID, CMP #### [facility] [address] [address] [address] Nida Castillo VLDL CALC 11.2 mg/dL Normal [facility] Comment on above: Performed By: #### L IPID, CMP #### [facility] [address] [place] [address] Dr. Nida Castillo PROF 14(COMP METB)on 022 Albumin [Mass/Vol] 3.8 g/dL Normal 3.4-5.0 [facility] Comment on above: Performed By: #### L IPID, CMP #### [facility] [address] [place] [address] Dr. Nida Castillo Albumin/Globulin [Mass ratio] 1.1 {ratio} Normal [facility] Comment on above: Performed By: #### L IPID, CMP #### [facility] [address] [place] [address] Dr. Nida Castillo ALP [Catalytic activity/Vol] 74 U/L Normal 46-116 [facility] Comment on above: Performed By: #### L IPID, CMP #### [facility] [address] [place] [address] Dr. Nida Castillo ALT [Catalytic activity/Vol] 23 U/L Normal 16-63 [facility] Comment on above: Performed By: #### L IPID, CMP #### [facility] [address] [place] [address] Dr. Nida Castillo Anion gap [Moles/Vol] 8.9 mmol/L Normal [facility] Comment on above: Performed By: #### L IPID, CMP #### [facility] [address] [place] [address] Dr. Nida Castillo AST [Catalytic activity/Vol] 20 U/L Normal 15-37 [facility] Comment on above: Performed By: #### L IPID, CMP #### [facility] [address] [place] [address] Dr. Nida Castillo Bilirubin [Mass/Vol] 0.4 mg/dL Normal 0.2-1.0 [facility] Comment on above: Performed By: #### L IPID, CMP #### [facility] [address] [place] [address] Dr. Nida Castillo Calcium [Mass/Vol] 9.1 mg/dL Normal 8.5-10.1 [facility] Comment on above: Performed By: #### L IPID, CMP #### [facility] [address] [place] [address] Dr. Nida Castillo Chloride [Moles/Vol] 102 mmol/L Normal 98-107 [facility] Comment on above: Performed By: #### L IPID, CMP #### [facility] [address] [place] [address] Dr. Nida Castillo CO2 [Moles/Vol] 34.4 mmol/L Critically high 21.0-32.0 [facility] Comment on above: Performed By: #### L IPID, CMP #### [facility] [address] [place] [address] Dr. Nida Castillo Creatinine [Mass/Vol] 0.98 mg/dL Normal 0.70-1.30 [facility] Comment on above: Performed By: #### L IPID, CMP #### [facility] [address] [place] [address] Dr. Nida Castillo EGFR-AF [place] >60 Normal >=60 [facility] Comment on above: Performed By: #### L IPID, CMP #### [facility] [address] [place] [address] Dr. Nida Castillo EGFR-NON AF [place] >60 Normal >=60 [facility] Comment on above: Performed By: #### L IPID, CMP #### [facility] [address] [place] [address] Dr. Nida Castillo Globulin (S) [Mass/Vol] 3.4 g/dL Normal [facility] Comment on above: Performed By: #### L IPID, CMP #### [facility] [address] [place] [address] Dr. Nida Castillo Glucose [Mass/Vol] 88 mg/dL Normal 74-106 [facility] Comment on above: Performed By: #### L IPID, CMP #### [facility] [address] [place] [address] Dr. Nida Castillo Potassium [Moles/Vol] 4.3 mmol/L Normal 3.5-5.1 [facility] Comment on above: Performed By: #### L IPID, CMP #### [facility] [address] [address] [address] Nida Castillo Protein [Mass/Vol] 7.2 g/dL Normal 6.4-8.2 [facility] Comment on above: Performed By: #### L IPID, CMP #### [facility] [address] [address] [address] Nida Castillo Sodium [Moles/Vol] 141 mmol/L Normal 136-145 [facility] Comment on above: Performed By: #### L IPID, CMP #### [facility] [address] [place] [address] Dr. Nida Castillo Urea nitrogen [Mass/Vol] 24.0 mg/dL Critically high 7.0-18.0 [facility] Comment on above: Performed By: #### L IPID, CMP #### [facility] [address] [place] [address] Dr. Nida Castillo Urea nitrogen/Creatinine [Mass ratio] 24.5 mg/mg Normal [facility] Comment on above: Performed By: #### L IPID, CMP #### [facility] Laboratory [address] [place] [address] Dr. Nida Castillo Vital Signs Date Time Vital Sign Value Performing Clinician Facility 08-12-2023 11:30-0500 Body height 180.34 cm Sammy StarShooter Other [facility] Other 08-12-2023 11:30-0500 Body mass index (BMI) [Ratio] 20.64 kg/m2 Sammy StarShooter Other [facility] Other 08-12-2023 11:30-0500 Body weight 67.13 kg Sammy StarShooter Other [facility] Other 08-12-2023 11:30-0500 Diastolic blood pressure 85 mm[Hg] Sammy StarShooter Other [facility] Other 08-12-2023 11:30-0500 Respiratory rate 12 /min Sammy Ball Other [facility] Other 08-12-2023 11:30-0500 Systolic blood pressure 135 mm[Hg] Sammy Ball Other [facility] Other 07-01-2023 10:30-0500 Body height 180.34 cm Sammy Ball Other [facility] Other 07-01-2023 10:30-0500 Body mass index (BMI) [Ratio] 21 kg/m2 Sammy Ball Other [facility] Other 07-01-2023 10:30-0500 Body weight 68.31 kg Sammy Ball Other [facility] Other 07-01-2023 10:30-0500 Diastolic blood pressure 74 mm[Hg] Sammy Ball Other [facility] Other 07-01-2023 10:30-0500 Respiratory rate 12 /min Sammy Ball Other [facility] Other 07-01-2023 10:30-0500 Systolic blood pressure 110 mm[Hg] Sammy Ball Other [facility] Other 05-30-2023 16:36-0400 Hourly Rounding Mbanefo OJUKWU [facility] 05-30-2023 16:36-0400 Promise to Return Mbanefo OJUKWU [facility] 05-30-2023 16:00-0400 Diastolic blood pressure 77 mm[Hg] Mbanefo OJUKWU [facility] 05-30-2023 16:00-0400 Heart rate 45 /min M[facility] OJUKW[facility] 05-30-2023 16:00-0400 SaO2% (BldA) [Mass fraction] 98 % [facility] O[facility]UK[facility] 05-30-2023 16:00-0400 Systolic blood pressure 128 mm[Hg] Mbanefo OJUKWU [facility] 05-30-2023 15:36-0400 Hourly Rounding Mbanefo OJUKWU [facility] 05-30-2023 15:36-0400 Promise to Return Mbanefo OJUKWU [facility] 05-30-2023 14:07-0400 Hourly Rounding Mbanefo OJUKWU [facility] 05-30-2023 14:07-0400 Promise to Return Mbanefo OJUKWU [facility] 05-30-2023 14:00-0400 Body temperature 98.06 [degF] Mbanefo OJUKWU [facility] 05-30-2023 12:00-0400 Blood Pressure Location Mbanefo OJUKWU [facility] 05-30-2023 12:00-0400 Heart rate 42 /min Mbanefo OJUKWU [facility] 05-30-2023 12:00-0400 Systolic blood pressure 157 mm[Hg] Mbanefo OJUKWU [facility] 05-30-2023 08:24-0400 Heart rate 36 /min Mbanefo OJUKWU [facility] 05-30-2023 08:24-0400 SaO2% (BldA) [Mass fraction] 99 % Mbanefo OJUKWU [facility] 05-30-2023 08:14-0400 Body temperature 97.52 [degF] Mbanefo OJUKWU [facility] 05-30-2023 08:14-0400 Diastolic blood pressure 72 mm[Hg] Mbanefo OJUKWU [facility] 05-30-2023 08:14-0400 Mean blood pressure 99 mm[Hg] Mbanefo OJUKWU [facility] 05-30-2023 08:14-0400 Systolic blood pressure 152 mm[Hg] Mbanefo OJUKWU [facility] 05-29-2023 20:00-0400 Mean blood pressure 102 mm[Hg] Mbanefo OJUKWU [facility] 05-29-2023 16:18-0400 Mean blood pressure 96 mm[Hg] Mbanefo OJUKWU [facility] 05-29-2023 14:00-0400 Blood Pressure Location Mbanefo OJUKWU [facility] 05-29-2023 11:37-0400 Mean blood pressure 103 mm[Hg] Mbanefo OJUKWU [facility] 05-28-2023 20:00-0400 Mean blood pressure 106 mm[Hg] Mbanefo OJUKWU [facility] 05-28-2023 16:46-0400 Body temperature 97.34 [degF] Mbanefo OJUKWU [facility] 05-28-2023 10:31-0400 Body temperature 97.34 [degF] Mbanefo OJUKWU [facility] 05-28-2023 02:51-0400 Respiratory rate 18 /min Mbanefo OJUKWU [facility] 05-28-2023 00:45-0400 Respiratory rate 17 /min Mbanefo OJUKWU [facility] 05-27-2023 20:05-0400 Respiratory rate 17 /min Mbanefo OJUKWU [facility] 05-27-2023 17:15-0400 Heart rate 60 /min Mbanefo OJUKWU [facility] 05-27-2023 16:57-0400 Respiratory rate 22 /min Mbanefo OJUKWU [facility] 05-27-2023 16:32-0400 Mean blood pressure 81 mm[Hg] Mbanefo OJUKWU [facility] 05-27-2023 16:32-0400 Respiratory rate 16 /min Mbanefo OJUKWU [facility] 05-27-2023 15:25-0400 Respiratory rate 14 /min Mbanefo OJUKWU [facility] 05-27-2023 13:39-0400 SaO2% (BldA) [Mass fraction] 98.8 % Mbanefo OJUKWU [facility] Resp Auto SS 05-27-2023 13:16-0400 Heart rate 79 /min Mbanefo OJUKWU [facility] 03-17-2023 10:35-0400 Blood Pressure Location Kayla Lue [facility] 03-17-2023 10:35-0400 Diastolic blood pressure 82 mm[Hg] Kayla Lue [facility] 03-17-2023 10:35-0400 Heart rate 74 /min Kayla Lue [facility] 03-17-2023 10:35-0400 Systolic blood pressure 128 mm[Hg] Kayla Lue [facility] 12-30-2022 11:30-0400 Body height 180.34 cm Sammy Ball Other [facility] Other 12-30-2022 11:30-0400 Body mass index (BMI) [Ratio] 24.29 kg/m2 Sammy Ball Other [facility] Other 12-30-2022 11:30-0400 Body weight 79.02 kg Sammy Ball Other [facility] Other 12-30-2022 11:30-0400 Diastolic blood pressure 75 mm[Hg] Sammy Ball Other [facility] Other 12-30-2022 11:30-0400 Respiratory rate 12 /min Sammy Ball Other [facility] Other 12-30-2022 11:30-0400 Systolic blood pressure 132 mm[Hg] Sammy Ball Other [facility] Other 12-02-2022 08:17-0400 Blood Pressure Location Kayla Lue [facility] 12-02-2022 08:17-0400 Diastolic blood pressure 70 mm[Hg] Kayla Lue [facility] 12-02-2022 08:17-0400 Heart rate 68 /min Kayla Lue [facility] 12-02-2022 08:17-0400 Respiratory rate 16 /min Kayla Lue [facility] 12-02-2022 08:17-0400 Systolic blood pressure 128 mm[Hg] Kayla Lue [facility] 09-29-2022 11:30-0500 Body height 180.34 cm Sammy Ball Other [facility] Other 09-29-2022 11:30-0500 Body mass index (BMI) [Ratio] 25.13 kg/m2 Sammy Ball Other [facility] Other 09-29-2022 11:30-0500 Body weight 81.74 kg Sammy Ball Other [facility] Other 09-29-2022 11:30-0500 Diastolic blood pressure 68 mm[Hg] Sammy Ball Other [facility] Other 09-29-2022 11:30-0500 Respiratory rate 12 /min Sammy Ball Other [facility] Other 09-29-2022 11:30-0500 Systolic blood pressure 122 mm[Hg] Sammy Ball Other [facility] Other Encounters Encounter Date Encounter Type Care Provider Facility Start: 08-23-2023 End: 08-23-2023 ambulatory Sammy Ball Other [facility] Other Start: 08-23-2023 Telephone encounter Sammy Ball [facility] Start: 08-12-2023 End: 08-12-2023 ambulatory Sammy Ball Other [facility] Other Start: 08-12-2023 Office outpatient vi sit 25 minutes Sammy Ball [facility] Start: 08-10-2023 End: 08-10-2023 ambulatory Sammy Ball Other [facility] Other Start: 08-10-2023 Telephone encounter Sammy Ball [facility] Start: 07-27-2023 End: 07-27-2023 ambulatory Sammy Ball Other [facility] Other Start: 07-27-2023 Telephone encounter Sammy Ball [facility] Start: 07-12-2023 End: 07-12-2023 ambulatory Sammy Ball Other [facility] Other Start: 07-12-2023 Telephone encounter Sammy Ball [facility] Start: 07-09-2023 End: 07-09-2023 ambulatory Sammy Ball Other [facility] Other Start: 07-09-2023 Telephone encounter Sammy Ball [facility] Start: 07-07-2023 End: 07-07-2023 ambulatory Sammy Ball Other [facility] Other Start: 07-07-2023 Telephone encounter Sammy Ball [facility] Start: 07-01-2023 End: 07-01-2023 ambulatory Sammy Ball Other [facility] Other Start: 07-01-2023 Office outpatient vi sit 25 minutes Sammy Ball [facility] Start: 07-01-2023 Telephone encounter Sammy Ball [facility] Start: 06-29-2023 End: 06-29-2023 ambulatory Sammy Ball Other [facility] Other Start: 06-29-2023 Telephone encounter [facility] Start: 06-04-2023 End: 06-04-2023 ambulatory Sammy Aguilera Other [facility] Other Start: 06-04-2023 Telephone encounter [facility] Start: 05-29-2023 End: 05-29-2023 ambulatory Sammy Aguilera Other [facility] Other Start: 05-29-2023 Telephone encounter Sammy [facility] Start: 05-27-2023 End: 05-30-2023 Evaluation and management of inpatient Jossue Spivey Facility:[facility] Start: 05-27-2023 End: 05-30-2023 Evaluation and management of inpatient Miriam PILLAIKWU [facility] Start: 04-09-2023 End: 04-09-2023 ambulatory Sammy Aguilera Other [facility] Other Start: 04-09-2023 Telephone encounter Sammy [facility] Start: 03-17-2023 End: 03-18-2023 ambulatory Kayla Torres Facility:[facility] Start: 03-17-2023 End: 03-17-2023 Patient encounter procedure Kayla Torres [facility] Start: 03-17-2023 End: 03-18-2023 ambulatory Kayla M. Lue Facility:[facility] Start: 03-17-2023 End: 03-17-2023 Patient encounter procedure Kayla M. Naidae [facility] Start: 03-11-2023 End: 03-11-2023 ambulatory Sammy Aguilera Other [facility] Other Start: 03-11-2023 Telephone encounter Sammy Aguilera [facility] Start: 02-09-2023 End: 02-09-2023 ambulatory Sammy Aguilera Other [facility] Other Start: 02-09-2023 Telephone encounter Sammy Aguilera [facility] Start: 01-05-2023 End: 01-05-2023 ambulatory Sammy Aguilera Other [facility] Other Start: 01-05-2023 Telephone encounter Sammy MONTOYA [facility] Start: 12-30-2022 End: 12-30-2022 ambulatory Sammy Aguilera Other [facility] Other Start: 12-30-2022 Encounter for genera l adult medical examination without abnormal findings Sammy Aguilera [facility] Start: 12-30-2022 Periodic preventive med est patient 40-64yrs Sammy Aguilera [facility] Start: 12-03-2022 End: 12-03-2022 ambulatory Sammy Aguilera Other [facility] Other Start: 12-03-2022 Telephone encounter Sammy MONTOYA [facility] Start: 12-02-2022 End: 12-03-2022 ambulatory Kayla Torres Facility:[facility] Start: 12-02-2022 End: 12-02-2022 Patient encounter procedure Kayla Torres [facility] Start: 11-30-2022 End: 12-01-2022 ambulatory KAYLA TORRES . Facility: Start: 11-05-2022 End: 11-05-2022 ambulatory Sammy Aguilera Other [facility] Other Start: 11-05-2022 Telephone encounter Sammy MONTOYA [facility] Start: 10-30-2022 End: 10-30-2022 ambulatory Sammy Aguilera Other [facility] Other Start: 10-30-2022 Telephone encounter [facility] Start: 09-30-2022 End: 09-30-2022 ambulatory Sammy Aguilera Other [facility] Other Start: 09-30-2022 Telephone encounter Sammy Aguilera [facility] Start: 09-29-2022 End: 09-29-2022 ambulatory Sammy Aguilera Other [facility] Other Start: 09-29-2022 Office outpatient vi sit 25 minutes Sammy Aguilera [facility] Start: 12-16-2021 Encounter for genera l adult medical examination without abnormal findings SAMMY AGUILERA [facility] Start: 12-10-2021 End: 12-11-2021 ambulatory SAMMY AGUILERA Facility:[facility] Start: 12-10-2021 End: 12-11-2021 Encounter for general adult medical examination without abnormal findings SAMMY AGUILERA Facility:[facility] Start: 12-10-2021 Adult health examination Sammy Aguilera Other [facility] Other Procedures Date Procedure Procedure Detail Performing Clinician Start: 11-30-2022 PSA screening KAYLA TORRES . Comment on above: Performed By: #### P SAD #### [facility] [address] [place] [address] Dr. Nida Castillo Start: 05-09-2020 Radical retropubic prostatectomy Kayla Torres Start: 02-29-2020 Transrectal biopsy o f prostate Kayla Lue Start: 11-11-2018 Screening for malign ant neoplasm of prostate Sammy [facility] Other Start: 11-10-2018 General examination of patient Sammy Aguilera Other Start: 08-02-2007 Teleradiotherapy procedure Kayla Lue Colonoscopy Kayla Lue Tonsillectomy Kayla Lue Plan of Treatment Date Care Activity Detail Author Start: 03-22-2024 ambulatory Ambulatory Facility:[facility] Immunizations Immunization Date Immunization Notes Care Provider Shelby stinson 07-14-2022 COVID-19 Pfizer (Pediatric) Sammy Aguilera Other [facility] Other 07-14-2022 influenza virus vaccine, split virus (incl. purified surface antigen) Sammy Aguilera Other [facility] Other 07-14-2022 influenza virus vaccine, unspecified formulation Kayla Brian [facility] 07-14-2022 influenza, injectabl e, quadrivalent, preservative free Sammy Aguilera Other [facility] Other 07-14-2022 SARS-CoV-2 (COVID-19 ) [id number] Kayla Lue [facility] 07-15-2021 SARS-CoV-2 (COVID-19 ) [id number] vaccine Kayla Lue [facility] 07-05-2021 SARS-CoV-2 (COVID-19 ) mRNA-1273 vaccine Kayla Lue [facility] Comment on above: Result Comment: [facility] 06-30-2021 influenza virus vaccine, split virus (incl. purified surface antigen) Sammy Aguilera Other [facility] Other 10-07-2020 SARS-CoV-2 (COVID-19 ) Ad26 vaccine, recombinant Kayla Lue [facility] 05-10-2020 influenza virus vaccine, unspecified formulation Kayla Lue [facility] 05-15-2019 influenza virus vaccine, unspecified formulation Kayla Lue [facility] 05-12-2019 influenza virus vaccine, split virus (incl. purified surface antigen) Sammy Aguilera Other [facility] Other 08-12-2018 influenza virus vaccine, unspecified formulation Kayla Lue [facility] 05-21-2017 influenza virus vaccine, split virus (incl. purified surface antigen) Sammy [facility]ilera Other [facility] Other 05-21-2017 influenza, unspecifi ed formulation Kayla Lue [facility] 05-21-2016 tetanus toxoid, reduced diphtheria toxoid, and acellular pertussis vaccine, adsorbed Kayla Lue [facility] 05-24-2015 influenza virus vaccine, unspecified formulation Kayla Lue [facility] Payers Date Payer Category Payer Private Health Insurance [id number] 2022 [id number] 2022 Unknown [id number] 2019 Unknown [id number] 1961 Medicare [id number] 1960 Unknown [id number] 1958 Unknown [id number] [id number] [id number] 1958 Unknown [id number] [id number] 1958 Unknown [id number] 2.16.8 [id number] 1958 Unknown [id number] 2.16.8 [id number] 1958 Unknown [id number] 2.16.8 [id number] 1958 Unknown [id number] [id number] [id number] Social History Date Type Detail Facility Sex Assigned At [facility] Start: 12-02-2022 Tobacco smoking status Ex-smoker (fi nding) [facility] Start: 03-17-2023 Tobacco smoking status Never [facility] Functional Status Date Assessment Result Facility 05-27-2023 Functional Status Yes [facility] 05-27-2023 Functional Status [facility] 03-17-2023 Functional Status N/A [facility] 12-02-2022 Functional Status N/A [facility] Clinical Notes 09-29-2022 to 08-23-2023 Note Date & Type Note Facility 08-23-2023 Evaluation note Encounter Date Diagnosis Assessment Notes Aug, Weight loss, unintentional (ICD-10 - R63.4) [facility] Other 01-11-2024 Evaluation note* Encounter Date Diagnosis Assessment Notes Treatment Notes Treatment Clinical Notes Aug, Primary hypertension (ICD-10 - I10) This patient is instructed to consume a healthy, low-fat, low-salt diet. They are also encouraged to continue exercise to achieve/maintain a normal BMI. Reduced medication due to weight loss Continue to monitor Aug, Weight loss, unintentional (ICD-10 - R63.4) Instructed on health, high protein, high fiber diet. Protein/calorie supplents daily. Keep active. r/o thyroid disease r/o anemia r/o diabetes r/o renal or hepatic failure CXR to r/o pulmonary infection or tumor CT abd/pelvis to r/o GI malignancy, pancreatic mass/cyst/neoplasm , hepatoma, renal Cell Ca. Aug, Elevated cholesterol (ICD-10 - E78.00) Aug, Thrombocytopenia (ICD-10 - D69.6) No bleeding complications Aug, PANCHITO (obstructive sle ep apnea) (ICD-10 - G47.33) This patient is aware of the benefits associated with PANCHITO: With continued use, the patient reduces the risk for OH, CVA, HTN, cardiac dysrhythmias and sudden cardiac deaths.The patient is also aware of the association between PANCHITO and morning headaches, daytime somnolence, fatigue and obesity, Stopped use due to ill fitting mask. Feels weight loss has improved his sleep quality Aug, Gastroesophageal reflux disease with esophagitis without hemorrhage (ICD-10 - K21.00) Avoid lying flat after eating. Avoid eating 2 hours prior to bedtime. Smaller, frequent meals may be better tolerated.Weight loss if overweight.PPI with any heartburn.Monitor for dysphagia. Aug, Lumbar spondylosis (ICD-10 - M47.816) The patient is instructed to avoid bending, twisting or lifting. They are to use intermittent heat and ice as needed. They may schedule a massage or gentle manipulation. They may safely use Tylenol as needed. Aug, Prostate cancer (ICD-10 - C61) No obvious s/s recurrence f/u Oncology Aug, Hx of squamous cell carcinoma (ICD-10 - Z85.89) Tonsil No s/s recurrence f/u ENT [facility] Other 01-09-2024 Evaluation note* Encounter Date Diagnosis Assessment Notes Treatment Notes Treatment Clinical Notes Aug, Lumbar spondylosis (ICD-10 - M47.816) [facility] Other 12-26-2023 Evaluation note* Encounter Date Diagnosis Assessment Notes Treatment Notes Treatment Clinical Notes Jul, Lumbar spondylosis (ICD-10 - M47.816) Jul, Gastroesophageal ref lux disease with esophagitis without hemorrhage (ICD-10 - K21.00) [facility] Other 12-06-2023 Evaluation note* Encounter Date Diagnosis Assessment Notes Treatment Notes Treatment Clinical Notes Jul, Weight loss, unintentional (ICD-10 - R63.4) [facility] Other 11-30-2023 Evaluation note* Encounter Date Diagnosis Assessment Notes Treatment Notes Treatment Clinical Notes Jun, Primary hypertension (ICD-10 - I10) This patient is instructed to consume a healthy, low-fat, low-salt diet. They are also encouraged to continue exercise to achieve/maintain a normal BMI. BP low normal w/ symptoms of lightheadedness Due to extreme weight loss Reduce Lotrel to 5/10 Jun, COVID-19 (ICD-10 - U07.1) Finished Remdesivir and Decadron. Continues w/ fatigue and lack of energy No longer required to isolate. Explained that he has natural immunity but should vaccinate in 3 months w/ new booster. Jun, PANCHITO (obstructive sleep apnea) (ICD-10 - G47.33) This patient is aware of the benefits associated with PANCHITO: With continued use, the patient reduces the risk for OH, CVA, HTN, cardiac dysrhythmias and sudden cardiac deaths.The patient is also aware of the association between PANCHITO and morning headaches, daytime somnolence, fatigue and obesity Stopped use due to mask causing ulceration on bridge of nose Due to weight loss, he no longer snores. After time for recover, recommend retitration study Jun, Weight loss, unintentional (ICD-10 - R63.4) Encouraged to eat small, frequent meals Instructed on protein/calorie supplements. CT abd/pelvis to r/o malignancy (primary vs metastatic) - known hx of throat cancer, prostate cancer EGD and Colonoscopy to follow to r/o esophageal, gastric or colon cancer Jun, Anemia, unspecified type (ICD-10 - D64.9) Unknown etiology - discussed GIB but no obvious s/s - discussed vitamin deficiencies: b12, FA and Fe Endoscopy to r/o PUD, polyp, ca Jun, Elevated cholesterol (ICD-10 - E78.00) Instructed on diet and exercise with continued statin therapy.Discussed the beneficial effects of lowering cholesterol in reducing the risk for cerebrovascular and cardiovascular disease. Jun, Gastroesophageal reflux disease with esophagitis without hemorrhage (ICD-10 - K21.00) Diet instructions: Smaller portions, avoid eating and laying flat, avoid eating or drinking prior to bedtime. Weight loss. 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 Healthy diet and keep active. No change in medications Jun, Lumbar spondylosis (ICD-10 - M47.816) This patient requires opiate use on a daily basis to control pain.This patient does not exhibit drug-seeking or aberrant behavior.This patient is able to continue with ADL, with an adequate quality of life, that they would not be able toachieve without the prescription pain medication.There has been no surgical treatment recommended for this condition.Use of non-opiate treatment should be continued, such as nonstrenuous and aquatic exercises.This patient has a pain management contract and they have been counseled on safe storage of the medication.They have been counseled on the risks of concomitant use with alcohol or sedating meds. PDMP is being followed and this patient's OARRS report is being monitored every 90 days. Jun, Prostate cancer (ICD-10 - C61) No obvious s/s recurrence f/u [facility] Other 11-12-2023 NoteAdmission and Discharge Information Admit Date/Time:05/27/2023 16:03 Admitting Physician - Jossue Spivey DO Admitting Diagnoses: Discharge Diagnoses 1. COVID-19, 05/27/2023 2. Acute hypoxemic respiratory failure, 05/27/2023 3. Sinus bradycardia, 05/29/2023 4. Positive blood cultures, 05/29/2023 5. UTI symptoms, 05/27/2023 6. Essential hypertension, 05/27/2023 7. HLD (hyperlipidemia), 05/27/2023 8. Depression, 05/27/2023 9. Chronic GERD, 05/27/2023 10. RLS (restless legs syndrome), 05/27/2023 Cough, 05/27/2023 Dizziness, 05/27/2023 Weakness or fatigue, 05/27/2023 Procedure History Radical retropubic prostatectomy (05/09/2020), Transrectal biopsy of prostate (02/29/2020), External beam radiotherapy (2007), Colonoscopy, Tonsillectomy. Hospital Course 63-year-old male with past medical history of depression, GERD, HLD, neuropathy, RLS, hypertension presented to ER on 05/27 due to cough and shortness of breath. 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 In ER patient was positive for COVID and O2 saturation on room air was approximately 85%. Patient was requiring 2 L of supplemental oxygen to maintain O2 saturation. Patient was admitted for further work-up and treatment. Patient was started on remdesivir and dexamethasone. Patient did have initial blood cultures that were positive 2 out of 2 for gram-positive and vancomycin was started at preliminary reads. Cultures did come back staph epi likely contaminant.. Repeat cultures were obtained and did appear negative. It was most likely contaminant. Patient was weaned on oxygen. Patient was also bradycardic on telemetry which patient states is normal for him. TSH was checked and was normal. Patient was stable at discharge. Medication changes ? Dexamethasone 4 mg a day to complete 10-day course Follow-up appointments ? PCP in 5 to 7 days ? [employer] in 2 to 4 weeks for possible sleep study due to elevated bicarb during stay. Discharge time was approximately 31 minutes which included discussing diagnosis and treatment with patient, communication with nursing. Physical Exam General: Looks well, no acute distress, well-nourished, well-kept Skin: Warm, dry Head: No trauma, normocephalic Neck: Trachea midline, supple, negative for JVD Eye: Conjunctive are clear, clear sclera , EOMI ENMT: oral mucosa moist, no lesions or edema nose or external ears Cardiovascular: Bradycardic but regular, S1-S2 present, negative for murmurs rubs or gallops Respiratory: Lungs clear to auscultation, bilateral symmetric movement, negative for wheezes rales or rhonchi Chest wall: no deformity. Gastrointestinal: Abdomen soft, nontender to palpation, bowel sounds present Back: No tenderness Extremities: Range of motion intact, no edema Neurological: awake, alert, speech normal, cranial nerves II through XII intact, no sensory defects, alert and oriented x3 Psychiatric: cooperative, affect appropriate for age, pleasant Laboratory Results Automated Diff (05/30/2023) Neutro Auto - 75.0 % Lymph Auto - 17.8 % Towns Auto - 6.9 % Eos Auto - 0.0 % Basophil Auto - 0.3 % Neutro Absolute - 3.6 E9/L Lymph Absolute - 0.8 E9/L Towns Absolute - 0.3 E9/L Eos Absolute - 0.0 E9/L Basophil Absolute - 0.0 E9/L Bilirubin Direct (05/29/2023) Bili Direct - 0.1 mg/dL Blood Gas Art, with Lytes, Gluc, Lact (05/27/2023) pH Arterial - 7.404 P CO2 Arterial - 58.0 mmHg P O2 Arterial - 94.5 mmHg Base Excess Arterial - 9.7 mmol/L HCO3 Arterial - 33.4 mmol/L Total Hgb Art - 11.7 gm/dL FO2Hb Art - 97.0 % FCOHb Art - 1.6 % FMetHb Art - 0.3 % O2 Sat Art - 98.8 % information assistant+ Art - 138.0 mmol/L cK+ Art - 4.3 mmol/L cCa2+ Art - 4.56 mg/dL cCl- Art - 95.0 mmol/L cGlu Art - 100 mg/dL cLac Art - 0.9 mmol/L AaDO2 Art - 35.4 mmHg a/A Ratio Art - 72.70 % Sample Type - Arterial Draw Sample Site - R Radial FIO2 BG - 21.0 Allens Test - Not Applicable Drawn by - trs BMP (05/30/2023) Glucose Lvl - 88 mg/dL BUN - 25 mg/dL Creatinine - 0.7 mg/dL BUN/Creat Ratio - 36 Sodium Lvl - 135 mmol/L Potassium Lvl - 3.3 mmol/L Chloride - 94 mmol/L CO2 - 35 mmol/L AGAP - 9 mEq/L Calcium Lvl - 8.6 mg/dL BMP (05/27/2023) Glucose Lvl - 98 mg/dL BUN - 21 mg/dL Creatinine - 1.0 mg/dL BUN/Creat Ratio - 21 Sodium Lvl - 135 mmol/L Potassium Lvl - 4.4 mmol/L Chloride - 95 mmol/L CO2 - 31 mmol/L AGAP - 13 mEq/L Calcium Lvl - 8.4 mg/dL BNP (05/27/2023) BNP - 81 pg/mL Capillary Glucose POC (05/28/2023) Glucose Cap - 120 mg/dL POC Device SN - [id number] POC User ID - [id number] POC Username - LUCY KAPADIA CBC w/ Auto Diff (05/30/2023) WBC - 4.8 E9/L RBC - 4.5 E12/L Hgb - 13.1 gm/dL Hct - 39.3 % MCV - 86.4 fL MCH - 28.8 pg MCHC - 33.3 gm/dL RDW - 13.1 % Platelet - 167.0 E9/L MPV - 8.5 fL CMP (05/29/2023) Glucose Lvl - 93 mg/dL BUN - (more content not included)...[facility] Center[facility] on above: Result Comment: Electronically Signed By: Jossue Spivey DO\.br\Date and Time Signed: 06/13/23 10:22 [id number] NoteMicrobiology PROCEDURE: Blood Culture Charcoal [R1] SOURCE: Blood BODY SITE: Hand R COLLECTED DATE/TIME: 05/28/2023 15:45 EDT RECEIVED DATE/TIME: 05/28/2023 16:53 EDT START DATE/TIME: 05/28/2023 16:53 EDT FREE TEXT SOURCE: Jossue Spivey DO. Jossue Spivey DO FINAL REPORTS Final Report [] Verified Date/Time: 06/04/2023 18:00 EDT No growth at 7 days. Performing Locations R1: This test was performed at: [facility], [address] [place] [address], [address] [place] [address], LrbatgSouthview Medical CenterComment on above:Performed By: #### [id number] #### [facility] [address] [place] [address] [id number] NoteMicrobiology PROCEDURE: Blood Culture Charcoal [R1] SOURCE: Blood BODY SITE: Arm R COLLECTED DATE/TIME: 05/28/2023 14:34 EDT RECEIVED DATE/TIME: 05/28/2023 15:31 EDT START DATE/TIME: 05/28/2023 15:31 EDT FREE TEXT SOURCE: Jossue Spivey DO, DO, Jossue Sher FINAL REPORTS Final Report [] Verified Date/Time: 06/04/2023 16:01 EDT No growth at 7 days. Performing Locations R1: This test was performed at: [facility], [address] [place] [address], [id number] , , RrazsdSouthview Medical CenterComment on above:Performed By: #### [id number] #### [facility] [address] [place] [address] [phone] Evaluation note* Encounter Date Diagnosis Assessment Notes Treatment Notes Treatment Clinical Notes Jun, Lumbar spondylosis (ICD-10 - M47.816) [facility] Other 10-31-2023 NoteMicrobiology PROCEDURE: Blood Culture Charcoal [R1] SOURCE: Blood BODY SITE: Wrist L COLLECTED DATE/TIME: 05/27/2023 13:50 EDT RECEIVED DATE/TIME: 05/27/2023 14:24 EDT START DATE/TIME: 05/27/2023 14:25 EDT FREE TEXT SOURCE: IV start Perla CORTEZ, Barney Duncan PA-C, Barney Mireles FINAL REPORTS Final Report [] Verified Date/Time: 06/01/2023 09:26 EDT Gram Positive Rods resembling diphtheroids and Staphylococcus epidermidis and Streptococcus mitis/oralis In 2 of 2 blood culture bottles drawn. Isolated from aerobic and anaerobic bottles Preliminary gram stain result of gram positive rods given to Dr. Spivey 05/28/2023 12:28:37. SUSCEPTIBILITY RESULTS LEGEND: S=Susceptible, N/R=Not Reported, Blank=Data not available, or drug not advisable or tested, I=Intermediate, ESBL=Extended spectrum beta-lactamase, R=Resistant, TFG=Thymidine-dependent strain, ETTA=Beta-lactamase positive, CARLOS A=mcg/m;(mg/L), S*=Predicted susceptible interp, R*=Predicted resistant interp Staepi Antibiotic CARLOS A Dilutn CARLOS A Interp Amoxicillin/ <=4/2 S Clavulanate Ampicillin <=2 ETTA Ampicillin/ <=8/4 S Sulbactam Azithromycin <=2 S Cefazolin <=8 S Ciprofloxacin >2 R Clindamycin <=0.25 S Daptomycin <=1 S Erythromycin <=0.5 S Gentamicin <=4 S Levofloxacin >4 R Linezolid <=2 S Nitrofurantoin <=32 Oxacillin <=0.25 S Penicillin 8 ETTA Rifampin <=1 S Tetracycline <=4 S Trimethoprim/ >2/38 R Sulfa Vancomycin 1 S Performing Locations R1: This test was performed at: [facility], [address] [place] [address], [id number], OwrpaaSouthview Medical CenterComment on above:Performed By: #### [id number] #### [facility] [address] [place] [address] [phone] NoteMicrobiology PROCEDURE: Blood Culture Charcoal [R1] SOURCE: Blood BODY SITE: Hand R COLLECTED DATE/TIME: 05/27/2023 13:53 EDT RECEIVED DATE/TIME: 05/27/2023 14:24 EDT START DATE/TIME: 05/27/2023 14:24 EDT FREE TEXT SOURCE: Perla CORTEZ, Barney Duncan PA-C, Barney Mireles FINAL REPORTS Final Report [] Verified Date/Time: 05/31/2023 10:52 EDT Staphylococcus epidermidis In 2 of 2 blood culture bottles drawn. Isolated from aerobic and anaerobic bottles Preliminary result of gram positive cocci in clusters called to Dr. Spivey 05/28/2023 12:28:37 by KD. Also alerted that his second set of blood cultures looks to be a different organism. SUSCEPTIBILITY RESULTS LEGEND: S=Susceptible, N/R=Not Reported, Blank=Data not available, or drug not advisable or tested, I=Intermediate, ESBL=Extended spectrum beta-lactamase, R=Resistant, TFG=Thymidine-dependent strain, ETTA=Beta-lactamase positive, CARLOS A=mcg/m;(mg/L), S*=Predicted susceptible interp, R*=Predicted resistant interp Staepi Antibiotic CARLOS A Dilutn CARLOS A Interp Amoxicillin/ <=4/2 S Clavulanate Ampicillin <=2 ETTA Ampicillin/ <=8/4 S Sulbactam Azithromycin >4 R Cefazolin <=8 S Ciprofloxacin <=1 S Clindamycin <=0.25 S Daptomycin <=1 S Erythromycin >4 R Gentamicin <=4 S Inducible <=4/0.5 Negative Clindamycin Levofloxacin <=1 S Linezolid <=2 S Nitrofurantoin <=32 Oxacillin <=0.25 S Penicillin 8 ETTA Rifampin <=1 S Tetracycline <=4 S Trimethoprim/ <=0.5/9.5 S Sulfa Vancomycin 1 S Performing Locations R1: This test was performed at: [facility], [address] [place] [address], [id number] , , NjbzeeSouthview Medical CenterComment on above:Performed By: #### [id number] #### [facility] [address] [place] [address] [phone] Evaluation + Plan noteExtracted from: Title:APSO Note Author:Jossue Spivey DO John e:05/30/23 1. COVID-19 (U07.1: COVID-19 ) Remdesivir started 05/27, complete 5 days DEXA started 05/27, complete 10 days -Patient on room air, can likely stop remdesivir at discharge Ordered: [facility] Care/Day Moderate 35 Minutes [id number] 2. Acute hypoxemic respiratory failure (J96.01: Acute respiratory failure with hypoxia) Secondary to above, resolved Patient currently on room air 3. Sinus bradycardia (R00.1: Bradycardia, unspecified) Continue to be asymptomatic TSH normal We will DC telemetry Patient states he is normally bradycardic 4. Positive blood cultures (R78.81: Bacteremia) Patient's preliminary blood cultures 2 out of 2 cultures growing gram-positive Repeat prelim negative thus far Continue vancomycin 5. UTI symptoms (R39.9: Unspecified symptoms and signs involving the genitourinary system) UTI ruled out 6. Essential hypertension (I10: Essential (primary) hypertension) Monitor, No home meds 7. HLD (hyperlipidemia) (E78.5: Hyperlipidemia, unspecified) statin 8. Depression (F32.A: Depression, unspecified) abilify 9. Chronic GERD (K21.9: Gastro-esophageal reflux disease without esophagitis) PPI 10. RLS (restless legs syndrome) (G25.81: Restless legs syndrome) Ropinirole Orders: Add on Test Automated Diff Basic Metabolic Panel Blood Culture Charcoal Blood Culture Charcoal CBC w/ Auto Diff eGFR Extra SST Tube TSH With T4fr Reflex Vancomycin Level Peak Extracted from: Title:APSO Note Author:Jossue Spivey DO John e:05/29/23 1. COVID-19 (U07.1: COVID-19 ) Remdesivir started 05/27, completed 5 days DEXA started 05/27, complete 10 days Ordered: Initial Hospital Care/Day Moderate 55 Minutes [id number] 2. Acute hypoxemic respiratory failure (J96.01: Acute respiratory failure with hypoxia) Secondary to above, improved currently on 1L Continue to wean O2 as needed incentive spirometer, steroids, out of bed 3. Sinus bradycardia (R00.1: Bradycardia, unspecified) Patient states is baseline Telemetry showed sinus bradycardia down to 30s, asymptomatic Continue to monitor, check TSH 4. Positive blood cultures (R78.81: Bacteremia) Patient's preliminary blood cultures 2 out of 2 cultures growing gram-positive Repeat cultures pending Continue vancomycin 5. UTI symptoms (R39.9: Unspecified symptoms and signs involving the genitourinary system) Brain negative, UTI ruled out 6. Essential hypertension (I10: Essential (primary) hypertension) Monitor, No home meds 7. HLD (hyperlipidemia) (E78.5: Hyperlipidemia, unspecified) Statin 8. Depression (F32.A: Depression, unspecified) Abilify 9. Chronic GERD (K21.9: Gastro-esophageal reflux disease without esophagitis) PPI 10. RLS (restless legs syndrome) (G25.81: Restless legs syndrome) Ropinirole Orders: vancomycin, PHARMACY TO DOSE, Injection, IV, As Directed, Routine, Start date 05/28/23 12:54:00 EDT vancomycin + Sodium Chloride 0.9% intravenous solution 250 mL, Reason for Vancomycin: Other reason documented in physician not, 1,000 mg = 1 EA, Injection, IV Piggyback, q12hr, Start date 05/28/23 14:00:00 EDT, Infuse over 60 minute(s) Add on Test Automated Diff Basic Metabolic Panel Bilirubin Direct Blood Culture Charcoal Blood Culture Charcoal Cardiac Monitoring CBC w/ Auto Diff CBC w/ Auto Diff Comprehensive Metabolic Panel eGFR Incentive Spirometry Oxygen - Wean Vancomycin Level Peak Vancomycin Level Trough Extracted from: Title:APSO Note Author:Jossue Spivey DO John e:05/28/23 1. COVID-19 (U07.1: COVID-19 ) tested positive in ER -remdesivir started 05/27 -Dexa 05/27 Ordered: [facility] Care/Day Moderate 35 Minutes [id number] 2. Acute hypoxemic respiratory failure (J96.01: Acute respiratory failure with hypoxia) secondary to above Wean O2 as tolerated, incentive spirometer, steroids, out of bed 3. UTI symptoms (R39.9: Unspecified symptoms and signs involving the genitourinary system) UA negative, UTI r/o UA did show elevated urobilinogen, will check liver labs 4. Essential hypertension (I10: Essential (primary) hypertension) Monitor no home meds 5. HLD (hyperlipidemia) (E78.5: Hyperlipidemia, unspecified) statin 6. Depression (F32.A: Depression, unspecified) Abilify 7. Chronic GERD (K21.9: Gastro-esophageal reflux disease without esophagitis) PPI 8. RLS (restless legs syndrome) (G25.81: Restless legs syndrome) Ropinirole Orders: acetaminophen, 650 mg = 2 tab(s), Tab, Oral, q6hr PRN Pain, Routine, Start date 05/27/23 17:33:00 EDT, 05/27/23 17:33:00 EDT aspirin, 81 mg = 1 tab(s), Tab-EC, Oral, Daily, Routine, Start date 05/28/23 9:00:00 EDT, 05/28/23 4:30:00 EDT dexamethasone, 6 mg = 1.5 mL, Injection, IV Push, Daily, NOW, Start date 05/27/23 17:39:00 EDT enoxaparin, 40 mg = 0.4 mL, Injection, SubCutaneous, Daily for 30 day(s), Stop date 06/27/23 8:59:00 EST, Routine, Start date 05/28/23 9:00:00 EDT, 05/27/23 17:33:00 EDT remdesivir + Sodium Chloride 0.9% intravenous solution 250 mL, 100 mg = 1 EA, Powder-Inj, IV Piggyback, Daily for 4 dose(s), Stop date 06/01/23 11:59:00 EDT, Routine, Start date 05/28/23 12:00:00 EDT, 250 mL/hr, Infuse over 1 hour(s) remdesivir + Sodium Chloride 0.9% intravenous solution 250 mL, 200 mg = 2 EA, Powder-Inj, IV Piggyback, Once, Stop date 05/27/23 18:00:00 EDT, Routine, Start date 05/27/23 18:00:00 EDT, 250 mL/hr, Infuse over 1 hour(s) Add on Test Ambulate with Assistance Automated Diff Basic Metabolic Panel Below the Knee Intermittent Pneumatic Compression Device CBC w/ Auto Diff CBC w/ Auto Diff Comprehensive Metabolic Panel eGFR Hepatic Function Panel Hepatic Function Panel Occupational Therapy Evaluate Patient, Develop a Plan of Care and Implement Plan Oxygen Protocol Physical Therapy Evaluate Patient, Develop a Plan of Care and Implement Plan Pulse Oximetry Regular Diet Resuscitation Status - Full Vital Signs Weight Extracted from: Title:Admission H & P Author:Jossue Spivey DO Date:05/27/23 Will be admitted under inpat ient status due to length of stay estimated greater than 2 midnights. All imaging and labs were reviewed by myself. DVT PPx Lovenox 40 mg once a day, PAS bilaterally Diet regular CODE STATUS full code 1. COVID-19 (U07.1: COVID-19) Positive in the ER Start patient on remdesivir for 5 days, dexamethasone 6 mg daily Monitor vitals and labs Ordered: Initial Hospital Care/Day Moderate 55 Minutes [id number] 2. Acute hypoxemic respiratory failure (J96.01: Acute respiratory failure with hypoxia) secondary to above Wean O2 as tolerated, incentive spirometer, steroids, out of bed 3. UTI symptoms (R39.9: Unspecified symptoms and signs involving the genitourinary system) UA pending If positive we will check urine culture and treat accordingly 4. Essential hypertension (I10: Essential (primary) hypertension) Monitor Continue home meds 5. HLD (hyperlipidemia) (E78.5: Hyperlipidemia, unspecified) Statin 6. Depression (F32.A: Depression, unspecified) Abilify Celebrex 7. Chronic GERD (K21.9: Gastro-esophageal reflux disease without esophagitis) PPI 8. RLS (restless legs syndrome) (G25.81: Restless legs syndrome) Ropinirole Orders: acetaminophen, 650 mg = 2 tab(s), Tab, Oral, q6hr PRN Pain, Routine, Start date 05/27/23 17:33:00 EDT, 05/27/23 17:33:00 EDT dexamethasone, 6 mg = 1.5 mL, Injection, IV Push, Daily, NOW, Start date 05/27/23 17:39:00 EDT enoxaparin, 40 mg = 0.4 mL, Injection, SubCutaneous, Daily for 30 day(s), Stop date 06/27/23 8:59:00 EST, Routine, Start date 05/28/23 9:00:00 EDT, 05/27/23 17:33:00 EDT remdesivir + Sodium Chloride 0.9% intravenous solution 250 mL, 200 mg = 2 EA, Powder-Inj, IV Piggyback, Once, Stop date 05/27/23 18:00:00 EDT, Routine, Start date 05/27/23 18:00:00 EDT, 250 mL/hr, Infuse over 1 hour(s) remdesivir + Sodium Chloride 0.9% intravenous solution 250 mL, 100 mg = 1 EA, Powder-Inj, IV Piggyback, Daily for 4 dose(s), Stop date 06/01/23 11:59:00 EDT, Routine, Start date 05/28/23 12:00:00 EDT, 250 mL/hr, Infuse over 1 hour(s) Ambulate with Assistance Basic Metabolic Panel Below the Knee Intermittent Pneumatic Compression Device CBC w/ Auto Diff Incentive Spirometry Occupational Therapy Evaluate Patient, Develop a Plan of Care and Implement Plan Oxygen Protocol Physical Therapy Evaluate Patient, Develop a Plan of Care and Implement Plan Pulse Oximetry Regular Diet Resuscitation Status - Full Vital Signs Weight Extracted from: Title:ED Note Author:Barney Duncan PA-C John e:05/27/23 Acute hypoxemic respiratory failure (J96.01: Acute respiratory failure with hypoxia) COVID-19 (U07.1: COVID-19) Orders: albuterol-ipratropium, 3 mL, Soln-Inh, Inhalation, Once, Stop date 05/27/23 13:32:00 EDT, STAT, Start date 05/27/23 13:32:00 EDT Sodium Chloride 0.9% intravenous solution, 1,000 mL, Soln-IV, IV, Once, Stop date 05/27/23 14:10:00 EDT, STAT, Start date 05/27/23 14:10:00 EDT, Infuse over 61, minute(s) Automated Diff B-Type Natriuretic Peptide Basic Metabolic Panel Blood Culture Charcoal Blood Culture Charcoal Blood Gas Art, with Lytes, Gluc, Lact CBC w/ Auto Diff Continuous Pulse Oximetry ED Cardiac Monitoring ED Physician consult Hospitalist for continued care eGFR Extra SST Tube Influenza A&B Ag Oxygen Therapy PT & PTT Rapid COVID Antigen ([facility]) Saline Lock Insert Troponin 0 Hr. Troponin 3 Hr. Troponin 6 Hr. Troponin 9 Hr. XR Chest Single View Future Appointments Appointment Date:03/22/2024 10:45:00 AM Scheduled Provider:Brian LUGO, Kayla Dubose Location:[facility] Appointment Type:URO Office Visit Diagnostic Tests Pending * Vancomycin Level Trough 06/01/23 [facility]10-29-2023 NoteAssessment/Plan 1. COVID-19 (U07.1: COVID-19) ? Remdesivir started 05/27, complete 5 days ? DEXA started 05/27, complete 10 days -Patient on room air, can likely stop remdesivir at discharge Ordered: [facility] Hospital Care/Day Moderate 35 Minutes [id number] 2. Acute hypoxemic respiratory failure (J96.01: Acute respiratory failure with hypoxia) Secondary to above, resolved ? Patient currently on room air 3. Sinus bradycardia (R00.1: Bradycardia, unspecified) Continue to be asymptomatic ? TSH normal ? We will DC telemetry ? Patient states he is normally bradycardic 4. Positive blood cultures (R78.81: Bacteremia) Patient's preliminary blood cultures 2 out of 2 cultures growing gram-positive ? Repeat prelim negative thus far ? Continue vancomycin 5. UTI symptoms (R39.9: Unspecified symptoms and signs involving the genitourinary system) UTI ruled out 6. Essential hypertension (I10: Essential (primary) hypertension) Monitor, ? No home meds 7. HLD (hyperlipidemia) (E78.5: Hyperlipidemia, unspecified) statin 8. Depression (F32.A: Depression, unspecified) abilify 9. Chronic GERD (K21.9: Gastro-esophageal reflux disease without esophagitis) PPI 10. RLS (restless legs syndrome) (G25.81: Restless legs syndrome) Ropinirole Orders: Add on Test Automated Diff Basic Metabolic Panel Blood Culture Charcoal Blood Culture Charcoal CBC w/ Auto Diff eGFR Extra SST Tube TSH With T4fr Reflex Vancomycin Level Peak Objective Vitals & Measurements T: 36.4 ?C(Axillary) TMIN: 36.4 ?C(Axillary) TMAX: 36.7 ?C(Oral) HR: 36(Monitored) BP: 152/72 SpO2:99% Intake & Output This visit (24 hour periods starting at 07:00 EDT) 05/30/23 * 05/29/23 05/28/23 Total Summary Intake mL -- 241.5 1.5 Output mL -- -- -- Fluid Balance -- 241.5 1.5 Intake (2) Oral Intake mL -- 240 -- dexamethasone mL -- 1.5 1.5 Total -- 241.5 1.5 Output (0) Counts (0) * This column has not completed the indicated time period. Lab Results WBC: 4.8 E9/L (05/30/23 06:18:00) RBC: 4.5 E12/L (05/30/23 06:18:00) HGB: 13.1 gm/dL Low (05/30/23 06:18:00) Hct: 39.3 % (05/30/23 06:18:00) MCV: 86.4 fL (05/30/23 06:18:00) MCH: 28.8 pg (05/30/23 06:18:00) MCHC: 33.3 gm/dL (05/30/23 06:18:00) RDW: 13.1 % (05/30/23 06:18:00) Platelet: 167 E9/L (05/30/23 06:18:00) MPV: 8.5 fL (05/30/23 06:18:00) Neutro Auto: 75 % (05/30/23 06:18:00) Lymph Auto: 17.8 % (05/30/23 06:18:00) Towns Auto: 6.9 % (05/30/23 06:18:00) Eos Auto: 0 % (05/30/23 06:18:00) Basophil Auto: 0.3 % (05/30/23 06:18:00) Neutro Absolute: 3.6 E9/L (05/30/23 06:18:00) Lymph Absolute: 0.8 E9/L Low (05/30/23 06:18:00) Towns Absolute: 0.3 E9/L (05/30/23 06:18:00) Eos Absolute: 0 E9/L (05/30/23 06:18:00) Basophil Absolute: 0 E9/L (05/30/23 06:18:00) Glucose Lvl: 88 mg/dL (05/30/23 06:18:00) BUN: 25 mg/dL High (05/30/23 06:18:00) Creatinine: 0.7 mg/dL (05/30/23 06:18:00) eGFR: 102 mL/min/1.73 m2 (05/30/23 06:18:00) BUN/Creat Ratio: 36 High (05/30/23 06:18:00) Sodium Lvl: 135 mmol/L (05/30/23 06:18:00) Potassium Lvl: 3.3 mmol/L Low (05/30/23 06:18:00) Chloride: 94 mmol/L Low (05/30/23 06:18:00) CO2: 35 mmol/L High (05/30/23 06:18:00) AGAP: 9 mEq/L (05/30/23 06:18:00) Calcium Lvl: 8.6 mg/dL Low (05/30/23 06:18:00) Vanco Pk: 25 mcg/mL (05/30/23 06:18:00) Problem List/Past Medical History Ongoing Chronic GERD Depression Elevated PSA Erectile dysfunction after radical prostatectomy Essential hypertension Frequent urination History of prostate cancer HLD (hyperlipidemia) Microscopic hematuria Mixed incontinence Post-void dribbling Prostate cancer Proteinuria Recurrent major depression RLS (restless legs syndrome) Urge incontinence Historical No qualifying data Medications Inpatient Abilify 5 mg Tab, 10 mg= 2 tab(s), Oral, Daily acetaminophen 325 mg Tab, 650 mg= 2 tab(s), Oral, q6hr, PRN aspirin 81 mg Oral EC Tab, 81 mg= 1 tab(s), Oral, Daily dexamethasone 4 mg/mL Inj 1 mL, 6 mg= 1.5 mL, IV Push, Daily divalproex sodium 500 mg ER Tab, 500 mg= 1 tab(s), Oral, Daily enoxaparin 40 mg/0.4 mL SC Ally, 40 mg= 0.4 mL, SubCutaneous, Daily Lyrica 100 mg Cap, 100 mg= 1 cap(s), Oral, TID Pantoprazole [address] Tab, 40 mg= 1 tab(s), Oral, Daily pravastatin 40 mg Tab, 80 mg= 2 tab(s), Oral, Daily remdesivir additive + Sodium Chloride 0.9% intravenous solution 250 mL Requip 1 mg Tab, 1 mg= 1 tab(s), Oral, TID traZODONE 50 mg Tab, 100 mg= 2 tab(s), Oral, Once a day (at bedtime) vancomycin + Sodium Chloride 0.9% intravenous solution 250 mL vancomycin IV PHARMACY TO DOSE, PHARMACY TO DOSE, IV, As Directed Home Abilify 10 mg Tab, Oral, Daily aspirin 81 mg oral tablet, Oral, Daily CeleBREX 200 mg Cap, Oral, BID divalproex sodium 500 mg ER Tab, Oral, Daily Lyrica 100 mg Cap, 100 mg= 1 cap(s), Oral, TID Pantoprazole [address] Tab, Oral, Daily (more content not included)...[facility]:Result Comment: Electronically Signed By: Jossue Spivey DO\.br\Date and Time Signed: 05/30/23 09:32 [id number] Hospital Discharge instructions Patient Education 05/30/2023 09:29:42 COVID-19 COVID-19 COVID-19, or coronavirus disease 2019, is an infection that is caused by a new (novel) coronavirus called SARS-CoV-2. COVID-19 can cause many symptoms. In some people, the virus may not cause any symptoms. In others, it may cause mild or severe symptoms. Some people with severe infection develop severe disease. What are the causes? This illness is caused by a virus. The virus may be in the air as tiny specks of fluid (aerosols) or droplets, or it may be on surfaces. You may catch the virus by: Breathing in droplets from an infected person. Droplets can be spread by a person breathing, speaking, singing, coughing, or sneezing. Touching something, like a table or a doorknob, that has virus on it (is contaminated) and then touching your mouth, nose, or eyes. What increases the risk? Risk for infection: You are more likely to get infected with the COVID-19 virus if: You are within 6 ft (1.8 m) of a person with COVID-19 for 15 minutes or longer. You are providing care for a person who is infected with COVID-19. You are in close personal contact with other people. Close personal contact includes hugging, kissing, or sharing eating or drinking utensils. Risk for serious illness caused by COVID-19: You are more likely to get seriously ill from the COVID-19 virus if: You have cancer. You have a long-term (chronic) disease, such as: ?Chronic lung disease. This includes pulmonary embolism, chronic obstructive pulmonary disease, andcystic fibrosis. ?Long-term disease that lowers your body's ability to fight infection (immunocompromise). ?Serious cardiac conditions, such as heart failure, coronary artery disease, or cardiomyopathy. ?Diabetes. ?Chronic kidney disease. ?Liver diseases. These include cirrhosis, nonalcoholic fatty liver disease, alcoholic liver disease, or autoimmune hepatitis. You have obesity. You are or were recently . You have sickle cell disease. What are the signs or symptoms? Symptoms of this condition can range from mild to severe. Symptoms may appear any time from 2 to 14days after being exposed to the virus. They include: Fever or chills. Shortness of breath or trouble breathing. Feeling tired or very tired. Headaches, body aches, or muscle aches. Runny or stuffy nose, sneezing, coughing, or sore throat. New loss of taste or smell. This is rare. Some people may also have stomach problems, such as nausea, vomiting, or diarrhea. Other people may not have any symptoms of COVID-19. How is this diagnosed? This condition may be diagnosed by testing samples to check for the COVID-19 virus. The most commontests are the PCR test and the antigen test. Tests may be done in the lab or at home. They include: Using a swab to take a sample of fluid from the back of your nose and throat (nasopharyngeal fluid), from your nose, or from your throat. Testing a sample of saliva from your mouth. Testing a sample of coughed-up mucus from your lungs (sputum). How is this treated? Treatment for COVID-19 infection depends on the severity of the condition. Mild symptoms can be managed at home with rest, fluids, and gcpt-cje-ynpsetw medicines. Serious symptoms may be treated in a hospital intensive care unit (ICU). Treatment in the ICU may include: ?Supplemental oxygen. Extra oxygen is given through a tube in the nose, a face mask, or a valencia. ?Medicines. These may include: ?Antivirals, such as monoclonal antibodies. These help your body fight off certain viruses that cancause disease. ?Anti-inflammatories, such as corticosteroids. These reduce inflammation and suppress the immune system. ?Antithrombotics. These prevent or treat blood clots, if they develop. ?Convalescent plasma. This helps boost your immune system, if you have an underlying immunosuppressive condition or are getting immunosuppressive treatments. ?Prone positioning. This means you will lie on your stomach. This helps oxygen to get into your lungs. ?Infection control measures. If you are at risk for more serious illness caused by COVID-19, your health care provider may prescribe two long-acting monoclonal antibodies, given together every 6 months. How is this prevented? To protect yourself: Use preventive medicine (pre-exposure prophylaxis). You may get pre-exposure prophylaxis if you have moderate or severe immunocompromise. Get vaccinated. Anyone 6 months old or older who meets guidelines can get a COVID-19 vaccine or vaccine series. This includes people who are or making breast milk (lactating). Get an added dose of COVID-19 vaccine after your first vaccine or vaccine series if you have moderate to severe immunocompromise. This applies if you have had a solid organ transplant or have been diagnosed with an immunocompromising condition. ?You should get the added dose 4 weeks after you got the first COVID-19 vaccine or vaccine series. ?If you get an mRNA vaccine, you will need a 3-dose primary series. ?If you get the J&J/Leatha vaccine, you will need a 2-dose primary series, with the second dose being an mRNA vaccine. Talk to your health care provider about getting experimental monoclonal antibodies. This treatment is approved under emergency use authorization to prevent severe illness before or after being exposed to the COVID-19 virus. You may be given monoclonal antibodies if: ?You have moderate or severe immunocompromise. This includes treatments that lower your immune response. People with immunocompromise may not develop protection against COVID-19 when they are vaccinated. ?You cannot be vaccinated. You may not get a vaccine if you have a severe allergic reaction to the vaccine or its components. ?You are not fully vaccinated. ?You are in a facility where COVID-19 is present and: ?Are in close contact with a person who is infected with the COVID-19 virus. ?Are at high risk of being exposed to the COVID-19 virus. ?You are at risk of illness from new variants of the COVID-19 virus. To protect others: If you have symptoms of COVID-19, take steps to prevent the virus from spreading to others. Stay home. Leave your house only to get medical care. Do not use public transit, if possible. Do not travel while you are sick. Wash your hands often with soap and water for at least 20 seconds. If soap and water are not available, use alcohol-based hand television producer. Make sure that all people in your household wash their hands well and often. Cough or sneeze into a tissue or your sleeve or elbow. Do not cough or sneeze into your hand or into the air. Where to find more information Centers for Disease Control and Prevention: www.cdc.gov/coronavirus World Health Organization: www.who.int/health-topics/coronavirus Get help right away if: You have trouble breathing. You have pain or pressure in your chest. You are confused. You have bluish lips and fingernails. You have trouble waking from sleep. You have symptoms that get worse. These symptoms may be an emergency. Get help right away. Call 911. Do not wait to see if the symptoms will go away. Do not drive yourself to the hospital. Summary COVID-19 is an infection that is caused by a new coronavirus. Sometimes, there are no symptoms. Other times, symptoms range from mild to severe. Some people witha severe COVID-19 infection develop severe disease. The virus that causes COVID-19 can spread from person to person through droplets or aerosols from breathing, speaking, singing, coughing, or sneezing. Mild symptoms of COVID-19 can be managed at home with rest, fluids, and ykds-dlg-cxezdqo medicines. This information is not intended to replace advice given to you by your health care provider. Make sure you discuss any questions you have with your health care provider. Document Revised: 07/09/2022 Document Reviewed: 07/09/2022 [employer] Patient Education 2022 [employer]. Follow Up Care 05/27/2023 13:13:17 With:Sree LUGO, Pawel Fried, PUL, FATOUMATA Address: [address] [place] [address] [facility] [place] [id number] When:2 to 4 weeks Comments:Call for followup appointment for possible outpatient sleep study [facility]10-28-2023 NoteAssessment/Plan 1. COVID-19 (U07.1: COVID-19) ? Remdesivir started 05/27, completed 5 days ? DEXA started 05/27, complete 10 days Ordered: Initial Hospital Care/Day Moderate 55 Minutes [id number] 2. Acute hypoxemic respiratory failure (J96.01: Acute respiratory failure with hypoxia) Secondary to above, improved currently on 1L ? Continue to wean O2 as needed incentive spirometer, steroids, out of bed 3. Sinus bradycardia (R00.1: Bradycardia, unspecified) Patient states is baseline ? Telemetry showed sinus bradycardia down to 30s, asymptomatic ? Continue to monitor, check TSH 4. Positive blood cultures (R78.81: Bacteremia) Patient's preliminary blood cultures 2 out of 2 cultures growing gram-positive ? Repeat cultures pending ? Continue vancomycin 5. UTI symptoms (R39.9: Unspecified symptoms and signs involving the genitourinary system) Brain negative, UTI ruled out 6. Essential hypertension (I10: Essential (primary) hypertension) Monitor, ? No home meds 7. HLD (hyperlipidemia) (E78.5: Hyperlipidemia, unspecified) Statin 8. Depression (F32.A: Depression, unspecified) Abilify 9. Chronic GERD (K21.9: Gastro-esophageal reflux disease without esophagitis) PPI 10. RLS (restless legs syndrome) (G25.81: Restless legs syndrome) Ropinirole Orders: vancomycin, PHARMACY TO DOSE, Injection, IV, As Directed, Routine, Start date 05/28/23 12:54:00 EDT vancomycin + Sodium Chloride 0.9% intravenous solution 250 mL, Reason for Vancomycin: Other reason documented in physician not, 1,000 mg = 1 EA, Injection, IV Piggyback, q12hr, Start date 05/28/23 14:00:00 EDT, Infuse over 60 minute(s) Add on Test Automated Diff Basic Metabolic Panel Bilirubin Direct Blood Culture Charcoal Blood Culture Charcoal Cardiac Monitoring CBC w/ Auto Diff CBC w/ Auto Diff Comprehensive Metabolic Panel eGFR Incentive Spirometry Oxygen - Wean Vancomycin Level Peak Vancomycin Level Trough Subjective Patient seen and examined. No acute events overnight. Patient afebrile. Telemetry showed patient was sinus bradycardia asymptomatic. Patient states he normally has low heart rate. Patient denied any other symptoms at this time. Objective Vitals & Measurements T: 36.5 ?C(Oral) TMIN: 36.3 ?C(Axillary) TMAX: 36.6 ?C(Oral) HR: 59(Monitored) BP: 152/77 SpO2: 97% Intake & Output This visit (24 hour periods starting at 07:00 EDT) 05/29/23 * 05/28/23 05/27/23 Total Summary Intake mL -- 1.5 1,001.5 Output mL -- -- -- Fluid Balance -- 1.5 1,001.5 Intake (2) Sodium Chloride 0.9% mL -- -- 1,000 dexamethasone mL -- 1.5 1.5 Total -- 1.5 1,001.5 Output (0) Counts (1) Urine Count -- -- 1 * This column has not completed the indicated time period. Physical Exam General: Looks well, no acute distress, well-nourished, well-kept Skin: Warm, dry Head: No trauma, normocephalic Neck: Trachea midline, supple, negative for JVD Eye: Conjunctive are clear, clear sclera , EOMI ENMT: oral mucosa moist, no lesions or edema nose or external ears Cardiovascular: Bradycardic but regular, S1-S2 present, negative for murmurs rubs or gallops Respiratory: Lungs clear to auscultation, bilateral symmetric movement, negative for wheezes rales or rhonchi Chest wall: no deformity. Gastrointestinal: Abdomen soft, nontender to palpation, bowel sounds present Back: No tenderness Extremities: Range of motion intact, no edema Neurological: awake, alert, speech normal, cranial nerves II through XII intact, no sensory defects, alert and oriented x3 Psychiatric: cooperative, affect appropriate for age, pleasant Lab Results WBC: 5.8 E9/L (05/29/23 05:56:00) RBC: 3.7 E12/L Low (05/29/23 05:56:00) HGB: 10.9 gm/dL Low (05/29/23 05:56:00) Hct: 32 % Low (05/29/23 05:56:00) MCV: 85.8 fL (05/29/23 05:56:00) MCH: 29.4 pg (05/29/23 05:56:00) MCHC: 34.2 gm/dL (05/29/23 05:56:00) RDW: 13.3 % (05/29/23 05:56:00) Platelet: 156 E9/L (05/29/23 05:56:00) MPV: 8.3 fL (05/29/23 05:56:00) Neutro Auto: 79.5 % High (05/29/23 05:56:00) Lymph Auto: 12.6 % Low (05/29/23 05:56:00) Towns Auto: 7.5 % (05/29/23 05:56:00) Eos Auto: 0.2 % (05/29/23 05:56:00) Basophil Auto: 0.2 % (05/29/23 05:56:00) Neutro Absolute: 4.6 E9/L (05/29/23 05:56:00) Lymph Absolute: 0.7 E9/L Low (05/29/23 05:56:00) Towns Absolute: 0.4 E9/L (05/29/23 05:56:00) Eos Absolute: 0 E9/L (05/29/23 05:56:00) Basophil Absolute: 0 E9/L (05/29/23 05:56:00) Glucose Lvl: 93 mg/dL (05/29/23 05:56:00) BUN: 27 mg/dL High (05/29/23 05:56:00) Creatinine: 0.8 mg/dL (05/29/23 05:56:00) eGFR: 98 mL/min/1.73 m2 (05/29/23 05:56:00) BUN/Creat Ratio: 34 High (05/29/23 05:56:00) Sodium Lvl: 139 mmol/L (05/29/23 05:56:00) Potassium Lvl: 3.7 mmol/L (05/29/23 05:56:00) Chloride: 102 mmol/L (05/29/23 05:56:00) CO2: 34 mmol/L High (05/29/23 05:56:00) AGAP: 7 mEq/L (05/29/23 05:56:00) Calcium Lvl: 8.6 (more content not included)...[facility] Comment on above:Result Comment: Electronically Signed By: Jossue Spivey DO.br\Date and Time Signed: 05/29/23 09:30 [id number] NoteAssessment/Plan 1. COVID-19 (U07.1: COVID-19) tested positive in ER -remdesivir started 05/27 -Dexa 05/27 [facility] Moderate 35 Minutes [id number] 2. Acute hypoxemic respiratory failure (J96.01: Acute respiratory failure with hypoxia) secondary to above ? Wean O2 as tolerated, incentive spirometer, steroids, out of bed 3. UTI symptoms (R39.9: Unspecified symptoms and signs involving the genitourinary system) UA negative, UTI r/o UA did show elevated urobilinogen, will check liver labs 4. Essential hypertension (I10: Essential (primary) hypertension) Monitor ? no home meds 5. HLD (hyperlipidemia) (E78.5: Hyperlipidemia, unspecified) statin 6. Depression (F32.A: Depression, unspecified) Abilify 7. Chronic GERD (K21.9: Gastro-esophageal reflux disease without esophagitis) PPI 8. RLS (restless legs syndrome) (G25.81: Restless legs syndrome) Ropinirole Orders: acetaminophen, 650 mg = 2 tab(s), Tab, Oral, q6hr PRN Pain, Routine, Start date 05/27/23 17:33:00 EDT, 05/27/23 17:33:00 EDT aspirin, 81 mg = 1 tab(s), Tab-EC, Oral, Daily, Routine, Start date 05/28/23 9:00:00 EDT, 05/28/23 4:30:00 EDT dexamethasone, 6 mg = 1.5 mL, Injection, IV Push, Daily, NOW, Start date 05/27/23 17:39:00 EDT enoxaparin, 40 mg = 0.4 mL, Injection, SubCutaneous, Daily for 30 day(s), Stop date 06/27/23 8:59:00 EST, Routine, Start date 05/28/23 9:00:00 EDT, 05/27/23 17:33:00 EDT remdesivir + Sodium Chloride 0.9% intravenous solution 250 mL, 100 mg = 1 EA, Powder-Inj, IV Piggyback, Daily for 4 dose(s), Stop date 06/01/23 11:59:00 EDT, Routine, Start date 05/28/23 12:00:00 EDT, 250 mL/hr, Infuse over 1 hour(s) remdesivir + Sodium Chloride 0.9% intravenous solution 250 mL, 200 mg = 2 EA, Powder-Inj, IV Piggyback, Once, Stop date 05/27/23 18:00:00 EDT, Routine, Start date 05/27/23 18:00:00 EDT, 250 mL/hr, Infuse over 1 hour(s) Add on Test Ambulate with Assistance Automated Diff Basic Metabolic Panel Below the Knee Intermittent Pneumatic Compression Device CBC w/ Auto Diff CBC w/ Auto Diff Comprehensive Metabolic Panel eGFR Hepatic Function Panel Hepatic Function Panel Occupational Therapy Evaluate Patient, Develop a Plan of Care and Implement Plan Oxygen Protocol Physical Therapy Evaluate Patient, Develop a Plan of Care and Implement Plan Pulse Oximetry Regular Diet Resuscitation Status - Full Vital Signs Weight Subjective Patient seen and examined. No acute events overnight. Patient denies any chest pain, palpitations, fever chills or other symptoms at this time. Objective Vitals & Measurements T: 36.3 ?C(Axillary) TMIN: 36.3 ?C(Axillary) TMAX: 37.6 ?C(Oral) HR: 40(Monitored) RR: 18 BP: 150/70 SpO2: 100% HT: 182 cm WT: 68.1 kg Intake & Output This visit (24 hour periods starting at 07:00 EDT) 05/28/23 * 05/27/23 05/26/23 Total Summary Intake mL 1.5 1,001.5 -- Output mL -- -- -- Fluid Balance 1.5 1,001.5 -- Intake (2) Sodium Chloride 0.9% mL -- 1,000 -- dexamethasone mL 1.5 1.5 -- Total 1.5 1,001.5 -- Output (0) Counts (1) Urine Count -- 1 -- * This column has not completed the indicated time period. Physical Exam General: Looks well, no acute distress, well-nourished, well-kept Skin: Warm, dry Head: No trauma, normocephalic Neck: Trachea midline, supple, negative for JVD Eye: Conjunctive are clear, clear sclera , EOMI ENMT: oral mucosa moist, no lesions or edema nose or external ears Cardiovascular: Regular rate and rhythm, S1-S2 present, negative for murmurs rubs or gallops Respiratory: Lungs clear to auscultation, bilateral symmetric movement, negative for wheezes rales or rhonchi Chest wall: no deformity. Gastrointestinal: Abdomen soft, nontender to palpation, bowel sounds present Back: No tenderness Extremities: Range of motion intact, no edema Neurological: awake, alert, speech normal, cranial nerves II through XII intact, no sensory defects, alert and oriented x3 Psychiatric: cooperative, affect appropriate for age, pleasant Lab Results WBC: 5.5 E9/L (05/28/23 06:12:00) RBC: 4.2 E12/L Low (05/28/23 06:12:00) HGB: 12.2 gm/dL Low (05/28/23 06:12:00) Hct: 36.2 % Low (05/28/23 06:12:00) MCV: 86.4 fL (05/28/23 06:12:00) MCH: 29.1 pg (05/28/23 06:12:00) MCHC: 33.7 gm/dL (05/28/23 06:12:00) RDW: 13.1 % (05/28/23 06:12:00) Platelet: 147 E9/L Low (05/28/23 06:12:00) MPV: 7.9 fL (05/28/23 06:12:00) Neutro Auto: 89.5 % High (05/28/23 06:12:00) Lymph Auto: 6.8 % Low (05/28/23 06:12:00) Towns Auto: 3.6 % Low (10/27/23 06:12:00) Eos Auto: 0 % (05/28/23 06:12:00) Basophil Auto: 0.1 % (05/28/23 06:12:00) Neutro Absolute: 4.9 E9/L (05/28/23 06:12:00) Lymph Absolute: 0.4 E9/L Low (05/28/23 06:12:00) Towns Absolute: 0.2 E9/L (05/28/23 06:12:00) Eos Absolute: 0 E9/L (05/28/23 06:12:00) Basophil Absolute: 0 E9/L (05/28/23 06:12:00) PT: 14.2 second(s) High (05/27 (more content not included)...[facility]Result Comment: Electronically Signed By: Jossue Spivey DO\.br\Date and Time Signed: 05/28/23 09:48 [id number] NotePT Evaluation done this date. Pt. with on AM-PAC this date. He is safe and independent with all functional activities. Does have some decreased endurance. Educated on getting up to chair throughout the day. No further PT needs.[facility]10-26-2023 NoteBasic Information Admit Date/Time:05/27/2023 16:03 Chief Complaint Pt has had weakness, dizziness, and fatigue x 3 days. Has also been coughing. sick at home with COVID. Pt. states home test was negative. Has hx of mora can. History of Present Illness 63-year-old male with past medical history of depression, GERD, HLD, neuropathy, RLS, hypertension presented to ER on 05/27 due to cough and shortness of breath. Patient states was recently diagnosed with COVID 4 days ago and he started having cough and shortness of breath 3 days ago. Patient was tested for COVID 3 days ago but was negative. Patient's symptoms continue to worsen. In ER patient was positive for COVID and O2 saturation on room air was approximately 85%. Patient was requiring2 L of supplemental oxygen to maintain O2 saturation. Patient denies any chest pain, fever chills, nausea vomiting diarrhea or other symptoms at this time. Patient states he is normally pretty active. stated that he has not been drinking as well as he normally does. 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 Patient denies alcohol use and states he smoked a long time ago. Patient states he did get the COVID-vaccine but did not get booster this year. is also concerned that he has been acting off lately and is worried about possible UTI. Patient does have history of prostate as well as tonsil cancer and follows with oncologist in [place]. Patient has not had any type of cancer noted for at least 5 years. Review of Systems Scoring Mccullough Fall Risk Score: 35 (05/27/23) Physical Exam Vitals & Measurements T: 37.6 ?C(Oral) HR: 57(Monitored) RR: 22 BP: 120/61 SpO2: 100% HT: 182 cm WT: 68.1 kg General: Looks well, no acute distress, well-nourished, well-kept Skin: Warm, dry Head: No trauma, normocephalic Neck: Trachea midline, supple, negative for JVD Eye: Conjunctive are clear, clear sclera , EOMI ENMT: oral mucosa moist, no lesions or edema nose or external ears Cardiovascular: Regular rate and rhythm, S1-S2 present, negative for murmurs rubs or gallops Respiratory: Lungs clear to auscultation, bilateral symmetric movement, negative for wheezes rales or rhonchi Chest wall: no deformity. Gastrointestinal: Abdomen soft, nontender to palpation, bowel sounds present Back: No tenderness Extremities: Range of motion intact, no edema Neurological: awake, alert, speech normal, cranial nerves II through XII intact, no sensory defects, alert and oriented x3 Psychiatric: cooperative, affect appropriate for age, pleasant Lab Results WBC: 8.9 E9/L (05/27/23 13:50:00) RBC: 4.1 E12/L Low (05/27/23 13:50:00) HGB: 11.8 gm/dL Low (05/27/23 13:50:00) Hct: 35.4 % Low (05/27/23 13:50:00) MCV: 87.2 fL (05/27/23 13:50:00) MCH: 29.2 pg (05/27/23 13:50:00) MCHC: 33.5 gm/dL (05/27/23 13:50:00) RDW: 13.1 % (05/27/23 13:50:00) Platelet: 123 E9/L Low (05/27/23 13:50:00) MPV: 8.1 fL (05/27/23 13:50:00) Neutro Auto: 93.2 % High (05/27/23 13:50:00) Lymph Auto: 2.1 % Low (05/27/23 13:50:00) Towns Auto: 4.6 % (05/27/23 13:50:00) Eos Auto: 0.1 % (05/27/23 13:50:00) Basophil Auto: 0 % (05/27/23 13:50:00) Neutro Absolute: 8.3 E9/L High (05/27/23 13:50:00) Lymph Absolute: 0.2 E9/L Low (05/27/23 13:50:00) Towns Absolute: 0.4 E9/L (05/27/23 13:50:00) Eos Absolute: 0 E9/L (05/27/23 13:50:00) Basophil Absolute: 0 E9/L (05/27/23 13:50:00) PT: 14.2 second(s) High (05/27/23 13:50:00) INR: 1.3 (05/27/23 13:50:00) PTT: 27.2 second(s) (05/27/23 13:50:00) Glucose Lvl: 98 mg/dL (05/27/23 13:50:00) BUN: 21 mg/dL (05/27/23 13:50:00) Creatinine: 1 mg/dL (05/27/23 13:50:00) eGFR: 84 mL/min/1.73 m2 (05/27/23 13:50:00) BUN/Creat Ratio: 21 High (05/27/23 13:50:00) Sodium Lvl: 135 mmol/L (05/27/23 13:50:00) Potassium Lvl: 4.4 mmol/L (05/27/23 13:50:00) Chloride: 95 mmol/L Low (05/27/23 13:50:00) CO2: 31 mmol/L (05/27/23 13:50:00) AGAP: 13 mEq/L (05/27/23 13:50:00) Calcium Lvl: 8.4 mg/dL Low (05/27/23 13:50:00) Troponin: 6.4 pg/mL Low (05/27/23 16:24:00) BNP: 81 pg/mL High (05/27/23 13:50:00) Influenzae A Ag: NEGATIVE1 (05/27/23:47:00) Influenzae B Ag: NEGATIVE1 (05/27/23 13:47:00) Rapid COVID Ag: Detected Abnormal (05/27/23:47:00) Rapid COV Int NEG Ctl: Pass (05/27/23:47:00) Rapid COV Int POS Ctl: Pass (05/27/23:47:00) pH Arterial: 7.404 (05/27/23 13:39:00) P CO2 Arterial: 58 mmHg High (05/27/23 13:39:00) P O2 Arterial: 94.5 mmHg (05/27/23 13:39:00) Base Excess Arterial: 9.7 mmol/L (05/27/23 13:39:00) HCO3 Arterial: 33.4 mmol/L High (05/27/23 13:39:00) Total Hgb Art: 11.7 gm/dL Low (05/27/23 13:39:00) FO2Hb Art: 97 % (05/27/23 13:39:00) FCOHb Art: 1.6 % (05/27/23 13:39:00) FMetHb Art: 0.3 % (05/27/23 13:39:00) O2 Sat Art: 98.8 % (05/27/23 13:39:00) information assistant+ Art: 138 mmol/L (05/27/23 13:39:00) cK+ Art: 4.3 mmol/L (05/27/23 13:39:00) cCa2+ Art: 4.56 mg/dL (05/27/23 13:39:00) cCl- Art: 95 mmol/L Low (05/27/23 13:39:00) cGlu Art: 100 mg/dL High (05/27/23 13:3 (more content not included)...[facility]:Result Comment: Electronically Signed By: Jossue Spivey DO\Date and Time Signed: 05/27/23 17:45 [id number] Evaluation note* Encounter Date Diagnosis Assessment Notes Treatment Notes Treatment Clinical Notes Apr, Lumbar spondylosis (ICD-10 - M47.816) [facility] Other 08-16-2023 Hospital Discharge instructions Patient Education 03/17/2023 11:23:08 Kegel Exercises Kegel Exercises Kegel exercises can help strengthen your pelvic floor muscles. The pelvic floor is a group of muscles that support your rectum, small intestine, and bladder. In females, pelvic floor muscles also help support the uterus. These muscles help you control the flow of urine and stool (feces). Kegel exercises are painless and simple. They do not require any equipment. Your provider may suggest Kegel exercises to: Improve bladder and bowel control. Improve sexual response. Improve weak pelvic floor muscles after surgery to remove the uterus (hysterectomy) or after , in females. Improve weak pelvic floor muscles after prostate gland removal or surgery, in males. Kegel exercises involve squeezing your pelvic floor muscles. These are the same muscles you squeezewhen you try to stop the flow of urine or keep from passing gas. The exercises can be done while sitting, standing, or lying down, but it is best to vary your position. Ask your health care provider which exercises are safe for you. Do exercises exactly as told by your health care provider and adjust them as directed. Do not begin these exercises until told by your health care provider. Exercises How to do Kegel exercises: 1.Squeeze your pelvic floor muscles tight. You should feel a tight lift in your rectal area. If youare a female, you should also feel a tightness in your vaginal area. Keep your stomach, buttocks, and legs relaxed. 2.Hold the muscles tight for up to 10 seconds. 3.Breathe normally. 4.Relax your muscles for up to 10 seconds. 5.Repeat as told by your health care provider. Repeat this exercise daily as told by your health care provider. Continue to do this exercise for at least 4 6 weeks, or for as long as told by your health care provider. You may be referred to a physical therapist who can help you learn more about how to do Kegel exercises. Depending on your condition, your health care provider may recommend: Varying how long you squeeze your muscles. Doing several sets of exercises every day. Doing exercises for several weeks. Making Kegel exercises a part of your regular exercise routine. This information is not intended to replace advice given to you by your health care provider. Make sure you discuss any questions you have with your health care provider. Document Revised: 11/27/2021 Document Reviewed: 11/27/2021 [employer] Patient Education 2022 [employer]. Follow Up Care 12/02/2022 09:06:34 With:Brian LUGO, Kayla Dubose, URL, URO Address: When:Within 1 Year(s) Comments:w/PSA [facility] 08-10-2023 Evaluation note* Encounter Date Diagnosis Assessment Notes Treatment Notes Treatment Clinical Notes Mar, Lumbar spondylosis (ICD-10 - M47.816) [facility] Other 07-11-2023 Evaluation note* Encounter Date Diagnosis Assessment Notes Treatment Notes Treatment Clinical Notes Jan, Lumbar spondylosis (ICD-10 - M47.816) [facility] Other 06-06-2023 Evaluation note* Encounter Date Diagnosis Assessment Notes Treatment Notes Treatment Clinical Notes Dec, Lumbar spondylosis (ICD-10 - M47.816) [facility] Other 05-31-2023 Evaluation note* Encounter Date Diagnosis Assessment Notes Treatment Notes Treatment Clinical Notes November, Wellness examination (ICD-10 - Z00.00) Healthy diet and exercise. Reviewed age-appropriate preventive testing recommended. - UTD w/ CRC screening - hx of prostate cancer w/o s/s recurrence November, PANCHITO (obstructive sleep apnea) (ICD-10 - G47.33) This patient is aware of the benefits associated with PANCHITO: With continued use, the patient reduces the risk for OH, CVA, HTN, cardiac dysrhythmias and sudden cardiac deaths.The patient is also aware of the association between PANCHITO and morning headaches, daytime somnolence, fatigue and obesity, which also has been improved with continued use.The patient is compliant with treatment, wearing the equipment every night for greater than 4 hours.The patient is instructed to continue use of the CPAP for PANCHITO treatment. November, Elevated cholesterol (ICD-10 - E78.00) Instructed on diet and exercise with continued statin therapy.Discussed the beneficial effects of lowering cholesterol in reducing the risk for cerebrovascular and cardiovascular disease. November, Primary hypertension (ICD-10 - I10) This patient is instructed to consume a healthy, low-fat, low-salt diet. They are also encouraged to continue exercise to achieve/maintain a normal BMI. 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 Healthy diet and exercise encouraged November, Thrombocytopenia (ICD-10 - D69.6) Known hx w/ hematology evluation in recent past. Monitor for now. November, Lumbar spondylosis (ICD-10 - M47.816) [facility] Other 05-03-2023 Hospital Discharge instructions Patient Education 12/02/2022 08:51:21 Cancer Screening for Men Cancer Screening for Men A cancer screening is a test or exam that checks for cancer. Your health care provider will recommend specific cancer screenings based on your age, medical history (including risk factors), and family history of cancer. Work with your health care provider to create a cancer screening schedule that protects your health. Who should have screening? All men should be considered for screening of certain cancers, including colorectal cancer, prostate cancer, lung cancer, and skin cancer. Your health care provider may recommend screenings for othertypes of cancer if: You had cancer before. You have a family member with cancer. You have abnormal genes that could increase the risk of cancer. You have risk factors for certain cancers, such as current or past use of tobacco products, or being overweight. When you should be screened for cancer depends on: Your age. Your medical history and your family's medical history. Certain lifestyle factors, such as smoking or other use of tobacco products. Environmental exposure, such as to asbestos. How is screening done? Colorectal cancer All adults should have screenings starting at age 45 and continuing until age 75. Your health care provider may recommend screening before age 45. You will have tests every 1 10 years, depending on your results and the type of screening test. People at increased risk should start screening at an earlier age. Talk with your health care provider about which screening test is right for you and how often you should be screened. Colorectal cancer screening looks for cancer or for growths called polyps that often form before cancer starts. Tests to look for cancer or polyps include: Colonoscopy or flexible sigmoidoscopy. For these procedures, a flexible tube with a small camera isinserted into the rectum. CT colonography. This test uses X-rays and a contrast dye to check the colon for polyps. If a polypis found, you may need to have a colonoscopy so the polyp can be located and removed. Tests to look for cancer in the stool (feces) include: Guaiac-based fecal occult blood test (FOBT). This test can find blood in stool. It can be done at home with a kit. Fecal immunochemical test (FIT). This test can find blood in stool. For this test, you will need tocollect stool samples at home. Stool DNA test. This test looks for blood in stool and any changes in DNA that can lead to colon cancer. For this test, you will need to collect a stool sample at home and send it to a lab. Prostate cancer Prostate cancer screening for men with average risk may start at age 50. Men with risk factors may need to be screened earlier, at ages 40 45. Talk with your health care provider about whether screening is right for you and, if so, how often you should be screened. Prostate cancer screening is done with blood tests and a digital rectal exam. During this exam, a health care provider uses a gloved finger to check prostate size. You may need to be screened for prostate cancer if: You have risk factors for prostate cancer, such as being or having a close family member with prostate cancer. You have had gene changes or a genetic condition that was passed on to you from a parent (inherited). These gene changes or genetic conditions include BRCA1 or BRCA2 gene mutations or Hawk syndrome. You have symptoms of prostate cancer, such as problems urinating or problems getting or keeping an erection (erectile dysfunction). When you have been screened for prostate cancer, future screening may be recommended based on the results of your blood tests. Lung cancer Lung cancer screening is done with a CT scan that looks for abnormal changes in the lungs. Discuss lung cancer screening with your health care provider if you are 50 80 years old and if any of the following apply to you: You currently smoke. You used to smoke heavily. You have a smoking history of 1 pack of cigarettes a day for 20 years or 2 packs a day for 10 years. You have quit smoking within the past 15 years. You may need to be screened every year if you smoke heavily or if you used to smoke. Skin cancer Skin cancer screening is done by checking the skin for unusual moles or spots and any changes in existing moles. Your health care provider should check your skin for signs of skin cancer at every physical exam. You should check your skin every month and tell your health care provider right away if anything looks unusual. Men with a [id number] risk for skin cancer may want to see a channel specialist (general partner) for an annual body check. What are the benefits of screening? Cancer screening is done to look for cancer in the very early stages, before it spreads and becomesharder to treat and before you would start to notice symptoms. Finding cancer early improves the chances of successful treatment. It may save your life. Where to find more information [employer]: www.cancer.org Centers for Disease Control and Prevention: www.cdc.gov National Cancer [place]: www.cancer.gov Contact a health care provider if: You have concerns about any signs or symptoms of cancer. These may include: Skin problems. You may have: ?Moles of an unusual shape or color. ?Changes in existing moles. ?A sore on your skin that does not heal. Tiredness (fatigue) that does not go away. Losing weight without trying. Blood in your urine or stool. Problems with urination. You may have: ?Changes in urination habits. ?Painful urination. Painful ejaculation. Problems with coughing or breathing. These may include: ?Coughing or trouble breathing that does not go away. ?Coughing up blood. Frequent pain or cramping in your abdomen. Summary Your health care provider will recommend specific cancer screenings based on your age, medical history, and family history of cancer. Work with your health care provider to create a cancer screening schedule that protects your health. Finding cancer early improves the chances of successful treatment. It may save your life. Contact a health care provider if you have concerns about any signs or symptoms of cancer. This information is not intended to replace advice given to you by your health care provider. Make sure you discuss any questions you have with your health care provider. Document Revised: 12/15/2021 Document Reviewed: 06/14/2020 [employer] Patient Education 2022 [employer]. Follow Up Care 11/11/2021 11:50:16 With:Brian LUGO, PEDRO Bernal, URO Address: When: Unknown [facility] 03-31-2023 Evaluation note* Encounter Date Diagnosis Assessment Notes Treatment Notes Treatment Clinical Notes Sep, Lumbar spondylosis (ICD-10 - M47.816) [facility] Other 02-28-2023 Evaluation note* Encounter Date Diagnosis Assessment Notes Treatment Notes Treatment Clinical Notes Sep, Primary hypertension (ICD-10 - I10) This patient is instructed to consume a healthy, low-fat, low-salt diet. They are also encouraged to continue exercise to achieve/maintain a normal BMI. Sep, Elevated cholesterol (ICD-10 - E78.00) Diet and exercise with continued statin therapy. Sep, PANCHITO (obstructive sle ep apnea) (ICD-10 - G47.33) This patient is aware of the benefits associated with PANCHITO: With continued use, the patient reduces the risk for OH, CVA, HTN, cardiac dysrhythmias and sudden cardiac deaths.The patient is also aware of the association between PANCHITO and morning headaches, daytime somnolence, fatigue and obesity, which also has been improved with continued use.The patient is compliant with treatment, wearing the equipment every night for greater than 4 hours.The patient is instructed to continue use of the CPAP for PANCHITO treatment. Sep, Lumbar spondylosis (ICD-10 - M47.816) The patient is instructed to avoid bending, twisting or lifting. They are to use intermittent heat and ice as needed. They may schedule a massage or gentle manipulation. They may safely use Tylenol as needed. Sep, Gastroesophageal reflux disease with esophagitis without hemorrhage (ICD-10 - K21.00) Diet instructions: Smaller portions, avoid eating and laying flat, avoid eating or drinking prior to bedtime. Weight loss. Sep, Thrombocytopenia (ICD-10 - D69.6) Monitor for now, chronic changes w/ WBC, Hgb and Plts. Referred to Hematology w/o additional testing or treatment recommended Sep, Mild episode of recurrent major depressive disorder (ICD-10 - F33.0) Heatlhy diet, exercise and keep active Sep, Prostate cancer (ICD-10 - C61) No s/s recurrence. s/p prostatectomy. f/u Sep, Primary insomnia (ICD-10 - F51.01) Consistent sleep routine. 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) Tonsil No s/s recurrence [facility] Other Evaluation + Plan note Future Appointments Appointment Date:03/17/2023 10:30:00 AM Scheduled Provider:Kayla Torres MD Location:[facility] Appointment Type:URO Office Visit Diagnostic Tests Pending * PSA Total 12/02/22 [facility] evaluation + Plan note Future Appointments Appointment Date:03/22/2024 10:45:00 AM Scheduled Provider:Kayla Torres MD Location:[facility] Appointment Type:URO Office Visit [facility] evalpgoqsm noteNo InformationNort [facility] Other History general Narrative - Reported* Type Description Date Medical History Hyperlipidemia Medical History Throat Cancer (Lt Tonsillar) Medical History Depression Medical History Hypertension Medical History Viral warts in nostrils Medical History History of Lt Tonsil lar [facility] + PET SCAN for rt tonsil Medical History High Cholesterol Medical History Sleeping Disorder Medical History Headaches Medical History GERD Medical History Shingles Surgical History Rt Tonsillectomy 07-03-2008 Surgical History Soft Palate Bx Squamous hyperpl nai 01-28-2009 Surgical History Nose surgery warts removed Surgical History Lt tonsillectomy 05-01-2008 Surgical History Carpal Tunnel Left 2014 Hospitalization History patient has julianjoy davidson been hospitalized for mental health [facility] Other [facility] general Narrative - Reported* Type Description Date Medical History Hyperlipidemia Medical History Throat Cancer (Lt Tonsillar) Medical History Depression Medical History Hypertension Medical History Viral warts in nostrils Medical History History of Lt Tonsil lar [facility] + PET SCAN for rt tonsil Medical History High Cholesterol Medical History Sleeping Disorder Medical History Headaches Medical History GERD Medical History Shingles Surgical History Rt Tonsillectomy 07-03-2008 Surgical History Soft Palate Bx Squamous hyperpl nai 01-28-2009 Surgical History Nose surgery warts removed Surgical History Lt tonsillectomy 05-01-2008 Surgical History Carpal Tunnel Left 2013 Surgical History Colonoscopy 2016 Hospitalization History patient has jose davidson been hospitalized for [employer] Other History general Narrative - Reported* Type Description Date Medical History Hyperlipidemia Medical History Throat Cancer (Lt Tonsillar) Medical History Depression Medical History Hypertension Medical History Viral warts in nostrils Medical History History of Lt Tonsil lar [facility] + PET SCAN for rt tonsil Medical History High Cholesterol Medical History Sleeping Disorder Medical History Headaches Medical History GERD Medical History Shingles Medical History Fatty liver disease Medical History Small splenic lesions Surgical History Rt Tonsillectomy 07-03-2008 Surgical History Soft Palate Bx Squamous hyperpl nai 01-28-2009 Surgical History Nose surgery warts removed Surgical History Lt tonsillectomy 05-01-2008 Surgical History Carpal Tunnel Left 2014 Surgical History Colonoscopy 2016 Hospitalization History patient has jose davidson been hospitalized for [employer] Other Hospital course Narrative No data available for this section [facility] Discharge instructions No data available for this section [facility] No data available for this section [facility] Summary Purpose Family History No Family History Records Found No data available for this section No Family History Records Found Advance Directives No Advanced Directives Records FoundNo Advanced Directives Records Found Additional Source Comments REASON FOR VISIT (unrecogniz ed section and content) 3 MONTHprescription refillre fillrefillrefillWELLNESSRefillNo InformationrefillrefillNo InformationREFILLNo Information3 month Follow upNo InformationLabs neededNo InformationCT resultsrefillrefill6 WEEK FOLLOW UPLab order Patient Care team informatio n (unrecognized section and content) Personnel Name: SAMMY AGUILERA DO Address: Address: [address] [place] [address]- Personnel Name: SAMMY AGUILERA DO Address: Address: [address] [facility] [place] [address]- Personnel Name: SAMMY AGUILERA DO Address: Address: [address] [facility] [place] [address]- Personnel Name: SAMMY AGUILERA DO Address: Address: [address] [facility] [place] [address]- (unrecognized sect ion and content) No Status Records FoundNo Status Records Found INFORMATION SOURCE (unrecogn ized section and content) DATE CREATED AUTHOR 12/04/2022 [facility] DATE CREATED AUTHOR AUTHOR'S ORGANIZ ATION 07/21/2023 [facility] FOR RECORDS PERTAINING TO PATIENTS WHO ARE OR HAVE BEEN ENROLLED IN A CHEMICAL DEPENDENCY/SUBSTANCEABUSE PROGRAM, SOME INFORMATION MAY BE OMITTED. This clinical summary was aggregated from multiple sources. Caution should be exercised in using it in the provision of clinical care. This summary normalizes information from multiple sources, and as a consequence, information in this document may materially change the coding, format and clinical context of patient data. In addition, data may be omitted in some cases. CLINICAL DECISIONS SHOULD BE BASED ON THE PRIMARY CLINICAL RECORDS. [employer] provides no warranty or guarantee of the accuracy or completeness of information in this document.
[2023-08-28 07:59] LABS: Basophils Percent Auto 0.7 % (0.2-2.0); Eosinophils Absolute Auto 0.1 10^3/uL (0.0-0.7); Eosinophils Percent Auto 3.1 % (0.9-7.0); Hematocrit 43.6 % (42.0-54.0); Hemoglobin 13.6 g/dL (14.0-18.0); Immature Granulocytes Abs Auto 0.01 10^3/uL (0.00-0.03); Immature Granulocytes Pct Auto 0.2 % (0.0-0.5); Lymphocytes Absolute Auto 0.7 10^3/uL (1.2-3.8); Lymphocytes Percent Auto 16.6 % (20.5-60.0); Mean Corpuscular HGB Conc 31.2 g/dL (29.9-35.2); Mean Corpuscular Hemoglobin 28.5 pg (25.9-34.0); Mean Corpuscular Volume 91.2 fL (80.0-94.0); Mean Platelet Volume 9.9 fL (9.5-13.5); Monocytes Absolute Auto 0.4 10^3/uL (0.3-0.8); Monocytes Percent Auto 9.6 % (1.7-12.0); Neutrophils Absolute Auto 3.1 10^3/uL (1.4-6.5); Neutrophils Percent Auto 69.8 % (43.0-75.0); Platelet Count 173 10^3/uL (150-450); Red Blood Count 4.78 10^6/uL (4.70-6.10); Red Cell Distribution Width 13.7 % (11.0-15.0); White Blood Count 4.5 10^3/uL (4.0-11.0)
[2023-08-28 08:16] LABS: Alanine Aminotransferase 12 U/L (16-63); Albumin Globulin Ratio 0.9; Albumin Level 3.3 g/dL (3.4-5.0); Alkaline Phosphatase 75 U/L (46-116); Anion Gap 8.3; Aspartate Amino Transferase 10 U/L (15-37); BUN Creatinine Ratio 18.2; Bilirubin Total 0.7 mg/dL (0.2-1.0); Calcium 9.3 mg/dL (8.5-10.1); Carbon Dioxide 35.7 mmol/L (21.0-32.0); Chloride 102 mmol/L (98-107); Estimated GFR (African America >60 (>=60); Estimated GFR (Non-African Ame >60 (>=60); Globulin 3.5 g/dL; Glucose 84 mg/dL (74-106); Sodium 142 mmol/L (136-145); Total Protein 6.8 g/dL (6.4-8.2)
[2023-08-28 08:28] LABS: Thyroid Stimulating Hormone 9.989 uIU/mL (0.358-3.740)
[2023-08-30 16:09] LABS: Albumin 3.4 g/dL (2.9-4.4); Alpha-1-Globulin 0.3 g/dL (0.0-0.4); Alpha-2-Globulin 0.6 g/dL (0.4-1.0); Free Kappa Lt Chains,S 13.6 mg/L (3.3-19.4); Free Lambda Lt Chains,S 9.5 mg/L (5.7-26.3); Gamma Globulin 0.6 g/dL (0.4-1.8); Immunoglobulin A, Qn, Serum 73 mg/dL (61-437); Immunoglobulin G, Qn, Serum 680 mg/dL (603-1613); Immunoglobulin M, Qn, Serum 35 mg/dL (20-172); Kappa/Lambda Ratio,S 1.43 (0.26-1.65); Protein, Total 5.8 g/dL (6.0-8.5)
== END 2023-08-28 07:34 | disposition home or self-care (01) ==
LOC: LAB 07:33
PROVIDERS: PCP Internal Medicine; Visit Provider Internal Medicine
DX: R63.4 Abnormal weight loss (principal); I10 Essential (primary) hypertension; D69.6 Thrombocytopenia, unspecified; K21.00 Gastro-esophageal reflux disease with esophagitis, without bleeding; D73.89 Other diseases of spleen
CPT/HCPCS: 36415; 74177; 80053; 82784; 83521; 84155; 84165; 84443; 85025; 86334; Q9967

== ENCOUNTER 2023-12-10 13:46 | Outpatient (OUT) | payer BC, MEDICARE, SELFPAY ==
--- OUTSIDE RECORDS SUMMARY | 2023-12-10 14:10 | XMS_ITS ---
Author Name Auto Generated Organization OHIP Care Team Providers Care Extractions Technician Name Role Phone LON BLACK Primary Care Unavailable Kayla Torres Attending Kayla Dennison Admitting Unavailable Kayla Torres Attending Unavailable Jossue Spivey Admitting Unavailable Jossue Spivey Attending Unavailable ZULEIKA AGUILERA Referring Unavailable Giorgio GONZALES Attending Unavailable BELKYS RANDALL Attending Unavailable PROBLEMS DATE TYPE CONDITION / CODE ATTENDING STATUS MORRIS RCE 05/27/2023 Unknown U07.1 / U07.1(ICD-10) Jossue Spivey Active [facility] PROCEDURES No Procedure Records Found RESULTS GENERAL SURGERY OFFICE/CLINIC NOTE Obser cori: 11/17/2023 4:30 PM Status: F Source: [facility] REPOSITORY Chief Complaint consultation for weight loss HPI Staff 63 year old male presents on consultation from Dr. Aguilera for abnormal weight loss. According to medical records that were received- weights are as follows- 2022- 163#, weight 2022- 150#, weight 2023- 148#, weight today- 155#. Patient reports he has lost approximately 100# over the past 1-1.5 years. Reports he has no appetite and eats less than he used to. Patient with history of prostate and tonsil carcinomas. Recent labs unremarkable. CT abd/pelvis 08/28/23- unremarkable. Last EGD and colonoscopy 06/2016 with chronic gastritis and sigmoid diverticulosis. History of Present Illness 63 yo male with h/o htn, hyperlipidemia, GERD, squamous cell carcinoma of left tonsil, s/p surgery/XRT, prostate cancer, s/p prostatectomy, RLS, referred for significant unintentional wt loss; patient reports about 100 lb wt loss over the last 4 years; no N/V, no early satiety; some chronic dysphagia, no odynophagia; no change in bms or blood in stools; reports just lack of appetite; recent negative abd/pelvic ct scan; last EGD/colonoscopy in 2016, with gastritis and diverticulosis; on baby asa and Celebrex daily; no fmhx of GI malignancy or IBD; no tobacco use. Review of Systems PHQ Score Initial Depression Screen Score: 0 SCORE ROS - Provider Constitutional: no fever, no sweats, yes weight loss. Eyes: no glasses, no blurred vision, no visual loss. ENMT: no dentures, no hoarseness, yes swallowing difficulties, no hearing loss, no ear infection(s), no nose bleeds. Cardiovascular: normal blood pressure, no chest pain, regular heartbeat, no heart murmur. Respiratory: no shortness of breath, no cough, no asthma, no wheezing. Gastrointestinal: no nausea, no vomiting, no diarrhea, no constipation, no blood in stool, no change in bowel habits, no abdominal pain, no hepatitis. Genitourinary: no kidney stones, no urine infection, no dysuria. Musculoskeletal: no pain, no weakness. Skin: no changing moles, no rash, no skin lumps. Neurologic: no seizures, no epilepsy, no headache. Psychiatric: no emotional or psychiatric problem. Heme/Lymph: no bleeding problems, no anemia, no blood clots, no transfusions. Allergy/Immunologic: no swollen lymph nodes/glands, no IV drug abuse. Other: Additional ROS info: Except as noted in the above Review of Systems and in the History of Present Illness, all other systems have been reviewed and are negative or noncontributory. Physical Exam Vitals & Measurements HR: 70(Peripheral) RR: 16 BP: 124/84 HT: 71 in HT: 180.34 cm WT: 70.5 kg WT: 155.1 lb BMI: 21.68 HEENT: normal conjunctiva, sclera clear, no scleral icterus, EOM intact, PERRLA, oral mucosa moist without lesions. Neck: trachea midline, no mass, symmetric, no thyromegaly or nodules, no adenopathy Respiratory: lungs CTA, respirations non labored. Cardiovascular: regular rate and rhythm, no murmur, no pedal edema or varicosities. Gastrointestinal: soft, non distended, no tenderness, no masses, no palpable hernias, diastasis recti no, no hepatosplenomegaly; normal bs Lymphatic: no cervical adenopathy, no supraclavicular adenopathy. Musculoskeletal: normal gait, digits and nails without infection, nodes, cyanosis, clubbing. Skin: no rashes, no lesions, no ulcers, no subcutaneous nodules, induration. Psychiatric/Neuro: oriented to time, place, person, judgement normal, affect appropriate for age, insight intact, no focal deficits. Tests: labs reviewed, x-rays reviewed, review of old records completed , Discussed surgical options, risks, and possible complications with patient. Assessment/Plan 1. Abnormal weight loss (R63.4: Abnormal weight loss) plan EGD and colonoscopy under anesthesia for further evaluation, informed consent obtained. 2. GERD (gastroesophageal reflux disease) (K21.9: Gastro-esophageal reflux disease without esophagitis) see # 1 Follow-up No qualifying data available Problem List/Past Medical History Ongoing Abnormal weight loss Chronic headaches Depression Elevated PSA Erectile dysfunction after radical prostatectomy Essential hypertension Fatty liver Frequent urination GERD (gastroesophageal reflux disease) History of prostate cancer HLD (hyperlipidemia) Lumbar spondylosis Microscopic hematuria Mixed incontinence Pancytopenia Post-void dribbling Prostate cancer Proteinuria RLS (restless legs syndrome) Sleep disorder Splenic cyst Squamous cell carcinoma of left tonsil Thrombocytopenia Urge incontinence Historical Recurrent major depression Procedure/Surgical History Radical retropubic prostatectomy (05/09/2020), Transrectal biopsy of prostate (02/29/2020), Colonoscopy (2015), EGD - esophagogastroduodenoscopy (2015), External beam radiotherapy (2007), Biopsy of soft palate, Carpal tunnel release, Tonsillectomy. Medications Abilify 10 mg Tab, 10 mg= 1 tab(s), Oral, Daily aspirin 81 mg oral tablet, Oral, Daily Belbuca 150 mcg buccal film, 150 mcg= 1 EA, Buccal, q12hr buprenorphine 20 mcg/hr transdermal film, extended release, 1 patch(es), TransDermal, qWeek CeleBREX 200 mg Cap, Oral, BID divalproex sodium 500 mg ER Tab, 1000 mg= 2 tab(s), Oral, Daily Lyrica 150 mg Cap, 150 mg= 1 cap(s), Oral, TID Pantoprazole [address] Tab, 40 mg= 1 tab(s), Oral, Daily pravastatin 80 mg Tab, 80 mg= 1 tab(s), Oral, Daily Requip 1 mg Tab, Oral, TID traZODONE 100 mg Tab, 300 mg= 3 tab(s), Oral, Once a day (at bedtime) Trintellix 20 mg oral tablet, Oral, Daily Allergies No Known Allergies No Known Medication Allergies Social History Alcohol - Denies Alcohol Use, 02/13/2020 Substance Abuse - Denies Substance Abuse, 11/17/2023 Tobacco Former smoker, quit more than 30 days ago, quit 30 years ago Tobacco Use:. Never Smokeless Tobacco Use:. Cigarettes, 1 per day. Started age 18.0 Years. Stopped age 28 Years. Household tobacco concerns: No. Yes, 11/17/2023 Family History Cancer: Mother. Diabetes mellitus type 2: Mother. Hypertension: Mother and Father. Primary malignant neoplasm of female breast: Sister. Immunizations Vaccine Date Status Comments influenza virus vaccine, inactivated 07/14/2022 Recorded SARS-CoV-2 (COVID-19) mRNAMUL.ORD![id number] 07/14/2022 Recorded SARS-CoV-2 (COVID-19) mRNA-1273 vaccine 07/15/2021 Recorded SARS-CoV-2 (COVID-19) mRNA-1273 vaccine 07/05/2021 Recorded booster SARS-CoV-2 (COVID-19) Ad26 vaccine 10/07/2020 Recorded influenza virus vaccine, inactivated 05/10/2020 Recorded influenza virus vaccine, inactivated 05/15/2019 Recorded influenza virus vaccine, inactivated 08/12/2018 Recorded influenza, unspecified formulation 05/21/2017 Recorded diphtheria/pertussis, acel/tetanus adult 05/21/2016 Recorded influenza virus vaccine, inactivated 05/24/2015 Recorded Result Comment: Electronical ly Signed By: Giorgio GONZALES MD\.br\Date and Time Signed: 11/17/23 16:31 EDT AMBULATORY VISIT SUMMARY Observed: 11/16 3:59 PM Status: F Source: [facility] REPOSITORY YENI CONNOR :1960 Visit Date:11/17/2023 Ambulatory Visit Instructions Your Care Team Attending Physician - Giorgio GONZALES MD Primary Care Physician - ZULEIKA AGUILERA DO Referring Physician - ZULEIKA AGUILERA DO This Is Your Medications List Contact prescribing physician if questions or concerns aripiprazole (Abilify 10 mg Tab) aspirin (aspirin 81 mg oral tablet) buprenorphine (Belbuca 150 mcg buccal film) buprenorphine (buprenorphine 20 mcg/hr transdermal film, extended release) celecoxib (CeleBREX 200 mg Cap) divalproex sodium (divalproex sodium 500 mg ER Tab) pantoprazole (Pantoprazole [address] Tab) pravastatin (pravastatin 80 mg Tab) pregabalin (Lyrica 150 mg Cap) ropinirole (Requip 1 mg Tab) trazodone (traZODONE 100 mg Tab) vortioxetine (Trintellix 20 mg oral tablet) Procedures Performed Radical retropubic prostatectomy (05/09/2020), Transrectal biopsy of prostate (02/29/2020), Colonoscopy (2015), EGD - esophagogastroduodenoscopy (2015), External beam radiotherapy (2007), Biopsy of soft palate, Carpal tunnel release, Tonsillectomy. Discharge Vitals Heart Rate (Peripheral) 70 Respiratory Rate 16 Blood Pressure 124/84 Height 180.34 cm Height 71 in Weight 70.5 kg Weight 155.1 lb BMI 21.68 What to do next Scheduled Follow-Up Appointments Wednesday 10:45 AM EDT With: Brian LUGO, Kayla Dubose Where: [facility] CONSENT FOR PROCEDURE/SURGERY Observed: 11/17/2023 2:26 PM Status: F Source: [facility] REPOSITORY [id number]#1.00TIFF INSURANCE CORRESPONDENCE Observed: 11/14 8:08 AM Status: F Source: [facility] REPOSITORY [id number]#1.00TIFF PHYSICIAN REFERRAL Observed: 11/02/2023 2:26 PM Status: F Source: [facility] REPOSITORY [id number]#1.00TIFF TRANSFER IN Observed: 11/02/2023 2:26 PM Status: F Source: [facility] REPOSITORY [id number]#1.00TIFF INSURANCE CORRESPONDENCE Observed: 07/09 2:08 PM Status: F Source: [facility] REPOSITORY [id number]#1.00TIFF REPORTABILITY RESPONSE - PUBLIC HEALTH Observed: 06/03/2023 7:38 PM Status: F Source: [facility] REPOSITORY {[id number]}XML INSURANCE CORRESPONDENCE OFFICE Observed: 06/01/2023 4:01 PM Status: F Source: [facility] REPOSITORY [id number]#1.00TIFF INSURANCE CORRESPONDENCE OFFICE Observed: 05/31/2023 2:30 PM Status: F Source: [facility] REPOSITORY [id number]#1.00TIFF INSURANCE CORRESPONDENCE OFFICE Observed: 05/31/2023 2:26 PM Status: F Source: [facility] REPOSITORY [id number]#1.00TIFF DISCHARGE INSTRUCTIONS Observed: 10:55 AM Status: F Source: [facility] REPOSITORY [id number]#1.00TIFF DISCHARGE SUMMARY Observed: 05/31/2023 6:27 AM Status: F Source: [facility] REPOSITORY Admission and Discharge Info rmation Admit Date/Time:05/27/2023 16:03 Admitting Physician - Jossue [...] was recently diagnosed with COVID 4 days [facility] RIDER and he started having cough and shortness of breath 3 days [facility] RIDER. In ER patient was positive for COVID [...] PCP in 5 to 7 days ? 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+ Art - 138.0 mmol/L cK+ Art - [...] - 120 mg/dL POC Device SN - [id number] POC User ID - [id number] POC Username - LUCY KAPADIA CBC w/ Auto Diff (05/30/2023) WBC - 4.8 E9/L RBC - 4.5 E12/L Hgb - 13.1 gm/dL Hct - 39.3 % MCV - 86.4 fL MCH - 28.8 pg MCHC - 33.3 gm/dL RDW - 13.1 % Platelet - 167.0 E9/L MPV - 8.5 fL CMP (05/29/2023) Glucose Lvl - 93 mg/dL BUN - 27 mg/dL Creatinine - 0.8 mg/dL BUN/Creat Ratio - 34 Sodium Lvl - 139 mmol/L Potassium Lvl - 3.7 mmol/L Chloride - 102 mmol/L CO2 - 34 mmol/L AGAP - 7 mEq/L Calcium Lvl - 8.6 mg/dL Alk Phos - 43 Int._Unit/L ALT - 10 Int._Unit/L AST - 15 Int._Unit/L Total Protein - 5.2 gm/dL Albumin Lvl - 2.5 gm/dL Globulin - 2.7 gm/dL A/G Ratio - 0.9 Bili Total - 0.3 mg/dL COVID Rapid Antigen ([facility]) (05/27/2023) Rapid COVID Ag - Detected Rapid COV Int NEG Ctl - Pass Rapid COV Int POS Ctl - Pass eGFR (05/30/2023) eGFR - 102 mL/min/1.73 m2 Hepatic Function Panel (05/28/2023) Alk Phos - 58 Int._Unit/L ALT - 10 Int._Unit/L AST - 16 Int._Unit/L Total Protein - 6.5 gm/dL Albumin Lvl - 3.2 gm/dL Globulin - 3.3 gm/dL A/G Ratio - 1.0 Bili Total - 0.5 mg/dL Bili Direct - 0.2 mg/dL Bili Indirect - 0.4 mg/dL Influenza A&B Ag (05/27/2023) Influenzae A Ag - NEGATIVE1 Influenzae B Ag - NEGATIVE1 PT & PTT (05/27/2023) PT - 14.2 second(s) INR - 1.3 PTT - 27.2 second(s) Troponin 0 Hr. (05/27/2023) Troponin - 6.90 pg/mL Troponin 3 Hr. (05/27/2023) Troponin - 6.40 pg/mL Troponin 6 Hr. (05/27/2023) Troponin - 6.00 pg/mL Troponin 9 Hr. (05/27/2023) Troponin - 6.00 pg/mL TSH With T4fr Reflex (05/29/2023) TSH - 1.15 mcIU/mL Urinalysis with Culture Reflex (05/28/2023) UA Spec Desc - Random Urine UA Color - Yellow2 UA Clarity - Clear2 UA Spec Grav - 1.010 UA pH - 6.5 UA Protein - NEGATIVE1 UA Glucose - NEGATIVE1 UA Ketones - NEGATIVE1 UA Bili - NEGATIVE1 UA Blood - NEGATIVE1 UA Nitrite - NEGATIVE1 UA Urobilinogen - >=8.0 UA Leuk Est - NEGATIVE1 UA RBC - 0-3 UA Squam Epithelial - 0-2 UA WBC - 0-5 Vancomycin Level Peak (05/30/2023) Vanco Pk - 25 mcg/mL Vancomycin Level Trough (05/30/2023) Vanco Tr - 13 mcg/mL Tests Performed Automated Diff Bilirubin Direct Blood Gas Art, with Lytes, Gluc, Lact BMP BMP BNP Capillary Glucose POC CBC w/ Auto Diff CMP COVID Rapid Antigen ([facility] [place]) eGFR Hepatic Function Panel Influenza A&B Ag PT & PTT Troponin 0 Hr. Troponin 3 Hr. Troponin 6 Hr. Troponin 9 Hr. TSH With T4fr Reflex Urinalysis with Culture Reflex Vancomycin Level Peak Vancomycin Level Trough XR Chest Single View Discharge Plan Discharge Disposition Discharge To, Anticipated II - Home with responsible caregiver Discharged to - Home with family care Discharge Medication List Prescriptions dexamethasone 4 mg Tab, 4 mg= 1 tab(s), Oral, Daily Home Abilify 10 mg Tab, Oral, Daily aspirin 81 mg oral tablet, Oral, Daily CeleBREX 200 mg Cap, Oral, BID divalproex sodium 500 mg ER Tab, Oral, Daily Lyrica 100 mg Cap, 100 mg= 1 cap(s), Oral, TID Pantoprazole [address] Tab, Oral, Daily pravastatin 80 mg Tab, Oral, Daily Requip 1 mg Tab, Oral, TID traZODONE 100 mg Tab, 100 mg= 1 tab(s), Oral, Once a day (at bedtime) Trintellix 20 mg oral tablet, Oral, Daily Follow-up With When Contact Information Sree LUGO, Pawle Fried, PUL, [place] Within 2 to 4 weeks [address] [facility] [place] [address]- Additional Instructions: Call for followup appointment for possible outpatient sleep study Patient Education COVID-19 Result Comment: Electronical ly Signed By: Patric AGUILERA, Jossue Sher\.br\Date and Time Signed: 06/13/23 10:22 EST INPATIENT PATIENT SUMMARY Observed: 05/03 4:15 PM Status: F Source: [facility] REPOSITORY YENI CONNOR :1960 Visit Date:05/27/2023 Inpatient Discharge Instructions Your Care Team Admitting Physician - KAZ LUGO, Miriam Reason for Your Visit Covid-weak/dizzy/SOB Your Diagnosis COVID-19 Acute hypoxemic respiratory failure Sinus bradycardia Positive blood cultures UTI symptoms Essential hypertension HLD (hyperlipidemia) Depression Chronic GERD RLS (restless legs syndrome) Cough Dizziness Weakness or fatigue Tests Performed Automated Diff Bilirubin Direct Blood Gas Art, with Lytes, Gluc, Lact BMP BMP BNP Capillary Glucose POC CBC w/ Auto Diff CMP COVID Rapid Antigen ([facility]) eGFR Hepatic Function Panel -- Results Pending [...] Pending Diagnostic Test Results None [facility] Discharge Instructions Return to ER symptoms change or worsen. Previously Scheduled Follow-Up Appointments Wednesday 10:45 AM EDT With: Brian LUGO, Kayla Dubose Where: [facility] PROGRESS NOTE - PHARMACY Observed: 05/30 2:15 PM Status: F Source: [facility] REPOSITORY Indication: Other:Bacteremia Goal Range:AUC/CARLOS A: 400 - [...] 06:18:00) Lymph Auto: 17.8 % (05/30/23 06:18:00) Tom Green Auto: 6.9 % (05/30/23 06:18:00) Eos Auto: 0 % (05/30/23 06:18:00) Basophil Auto: 0.3 % (05/30/23 06:18:00) Neutro Absolute: 3.6 E9/L (05/30/23 06:18:00) Lymph Absolute: 0.8 E9/L Low (05/30/23 06:18:00) [place] Absolute: 0.3 E9/L (05/30/23 06:18:00) Eos Absolute: [...] 06:18:00) Vanco Pk: 25 mcg/mL (05/30/23 06:18:00) VANCO TROUGH Collected: 3 1:38 PM Status: F Source: [facility] REPOSITORY Order Comment: NOTE: Trough is scheduled 1 hour prior to next dose. Thank you. TYPE CODE TESTS RESULT OUT OF RANGE REFERENCE UNITS LAB 72386-9 VANCOMYCIN 13 Normal 10-20 microgram /mL Performed By: #### [id number] # ### [facility] [address] [place] [address] MONITOR RECORD Observed: 05/30/2023 12:05 PM Status: F Source: [facility] REPOSITORY [id number]#1.00TIFF INTERDISCIPLINARY NOTE - ALFREDA E CIRCULAR SHEAR OPERATOR Observed: 05/30/2023 10:58 AM Status: F Source: [facility] REPOSITORY CRM to room to discuss DC pl anning. Patient is awake, alert and oriented. Patient is from home with his spouse. She will transport at [place]. Patient verified PCP, home DME and insurance. Patient is here as inpatient. Medicare form signed. Patient is here with Weakness, dizziness, and Covid [id number]. Patient is on isolation. Patient is assigned to Dr Paster, see notes. Patient has been weaned to RA. . Patient was offered DC needs for DME, HH and PM. Patient denied any DC needs. Patient was provided CRM contact, white board updated. Anticipated DC 05/30 or 05/31 CRM following Result Comment: Electronical ly Signed By: Dolly Copeland\.violeta\Date and Time Signed: 05/30/23 10:59 EDT PROGRESS NOTE-PHYSICIAN Observed: 2022 9:32 AM Status: F Source: [facility] REPOSITORY Assessment/Plan 1. COVID-19 (U07.1: COVID-19) ? Remdesivir started 05/27, complete 5 days ? DEXA started 05/27, complete 10 days -Patient on room air, can likely stop remdesivir at discharge Ordered: [facility] Hospital Care/Day Moderate 35 Minutes [id number] 2. Acute hypoxemic respiratory failure (J96.01: Acute [...] TMAX: 36.7 ?C(Oral) HR: 36(Monitored) BP: 152/72 SpO2: 99% Intake & Output This visit (24 hour [...] 06:18:00) Lymph Auto: 17.8 % (05/30/23 06:18:00) Tom [place] Auto: 6.9 % (05/30/23 06:18:00) Eos Auto: 0 % (05/30/23 06:18:00) Basophil Auto: 0.3 % (05/30/23 06:18:00) Neutro Absolute: 3.6 E9/L (05/30/23 06:18:00) Lymph Absolute: 0.8 E9/L Low (05/30/23 06:18:00) [place] Absolute: 0.3 E9/L (05/30/23 06:18:00) Eos Absolute: [...] Daily Requip 1 mg Tab, Oral, TID sildenafil 50 mg Tab, 50 mg= 1 tab(s), Oral, As Directed, 3 refills, Not taking tizanidine 4 mg oral capsule, Oral, TID, Not taking traZODONE 100 mg Tab, 100 mg= 1 tab(s), Oral, Once a day (at bedtime) Trintellix 20 mg oral tablet, Oral, Daily Result Comment: Electronical ly Signed By: Jossue pSivey DO.br\Date and Time Signed: 05/30/23 09:32 EDT CBC W/ AUTO DIFF Collected: 05/30/2023 6:18 AM Statu s: F Source: [facility] REPOSITORY TYPE CODE TESTS RESULT OUT OF RANGE REFERENCE UNITS LAB 54415-8(LOINC) LEUKOCYTES 4.8 Normal 4.0-11.0 E9/L LAB 789-8(LOINC) ERYTHROCYTES:NCN C:PT:BLD:QN:AUTO MATED COUNT 4.5 Normal 4.3-5.9 E12/L LAB 718-7(LOINC) HEMOGLOBIN:MCNC: PT:BLD:QN: 13.1 Low 13.5-17.5 gm/dL LAB 4544-3(LOINC) HEMATOCRIT:VFR:P T:BLD:QN:AUTOMAT ED COUNT 39.3 Normal 37.7-49.0 % LAB 788-0(LOINC) ERYTHROCYTE DISTRIBUTION WIDTH:RATIO:PT:R BC:QN:AUTOMATED COUNT 13.1 Normal 10.9-14.2 % LAB 785-6(LOINC) ERYTHROCYTE MEAN CORPUSCULAR HEMOGLOBIN:ENTMA SS:PT:RBC:QN:AUT OMATED COUNT 28.8 Normal 27.0-34.0 pg LAB 786-4(LOINC) ERYTHROCYTE MEAN CORPUSCULAR HEMOGLOBIN CONCENTRATION:MC NC:PT:RBC:QN:AUT OMATED COUNT 33.3 Normal 31.4-36.0 gm/dL LAB 787-2(LOINC) ERYTHROCYTE MEAN CORPUSCULAR VOLUME:ENTVOL:PT :RBC:QN:AUTOMATE D COUNT 86.4 Normal 80.0-100.0 fL LAB 75720-6(LOINC) PLATELET MEAN VOLUME:ENTVOL:PT :BLD:QN:AUTOMATE D COUNT 8.5 Normal 6.4-10.8 fL LAB 777-3(LOINC) PLATELETS:NCNC:P T:BLD:QN:AUTOMAT ED COUNT 167.0 Normal 150.0-500.0 E9/L Performed By: #### [id number], [id number], [id number], [id number] #### [facility] [address] [place] [address] AUTO DIFF Collected: 3 6:18 AM Status: F Source: [facility] REPOSITORY Order Comment: Order Added b y Discern Expert. TYPE CODE TESTS RESULT OUT OF RANGE REFERENCE UNITS LAB 751-8(LOINC) NEUTROPHILS: NCNC:PT:BLD: QN:AUTOMATED COUNT 75.0 Normal 36.0-75.0 % LAB 731-0(LOINC) LYMPHOCYTES: NCNC:PT:BLD: QN:AUTOMATED COUNT 17.8 Normal 14.0-50.0 % LAB 742-7(LOINC) MONOCYTES:NC NC:PT:BLD:QN :AUTOMATED COUNT 6.9 Normal 4.0-14.0 % LAB 711-2(LOINC) EOSINOPHILS: NCNC:PT:BLD: QN:AUTOMATED COUNT 0.0 Normal 0.0-8.0 % LAB 704-7(LOINC) BASOPHILS:NC NC:PT:BLD:QN :AUTOMATED COUNT 0.3 Normal 0.0-2.0 % LAB 90583-6(LOINC) NEUTROPHILS/ LEUKOCYTES:N FR.DF:PT:BLD :QN:AUTOMATE D COUNT 3.6 Normal 2.0-7.5 E9/L LAB 42202-8([facility]) LYMPHOCYTES/ LEUKOCYTES:N FR.DF:PT:BLD :QN:AUTOMATE D COUNT 0.8 Low 1.0-4.0 E9/L LAB 32245-4([facility]) MONOCYTES/LE UKOCYTES:NFR .DF:PT:BLD:Q N:AUTOMATED COUNT 0.3 Normal 0.2-1.0 E9/L LAB 67308-2([facility]) EOSINOPHILS/ LEUKOCYTES:N FR.DF:PT:BLD :QN:AUTOMATE D COUNT 0.0 Normal 0.0-0.5 E9/L LAB 30492-3([facility]) BASOPHILS/LE UKOCYTES:NFR .DF:PT:BLD:Q N:AUTOMATED COUNT 0.0 Normal 0.0-0.2 E9/L Performed By: #### [id number], [id number], [id number] #### [facility] [address] [place] [address] BMP Collected: 3 6:18 AM Status: F Source: [facility] REPOSITORY TYPE CODE TESTS RESULT OUT OF RANGE REFERENCE UNITS LAB 2339-0([facility]) GLUCOSE:MCN C:PT:BLD:QN : 88 Normal 55-199 mg/dL Result Comment: If this gluc ose result represents a fasting glucose, interpretation should refer to the following reference range: 55-99 mg/dL LAB 3094-0([facility]) UREA NITROGEN:MC NC:PT:SER/P LAS:QN: 25 High 5-21 mg/dL LAB 2160-0([facility]) CREATININE: MCNC:PT:SER /PLAS:QN: 0.7 Normal 0.5-1.3 mg/dL LAB 3097-3([facility]) UREA NITROGEN/CR EATININE:MR TO:PT:SER/P LAS:QN: 36 High 10-20 No Units LAB 94040-7([facility]) CALCIUM:MCN C:PT:SER/PL :QN: 8.6 Low 8.9-11.1 mg/dL LAB 2951-2([facility]) SODIUM:SCNC :PT:SER/QUINCY S:QN: 135 Normal 135-145 mmol/L LAB 2823-3([facility]) POTASSIUM:S CNC:PT:SER/ PLAS:QN: 3.3 Low 3.5-5.3 mmol/L LAB 2075-0([facility]) CHLORIDE:SC NC:PT:SER/P LAS:QN: 94 Low 101-111 mmol/L LAB 2027-9([facility]) CARBON DIOXIDE:SCN C:PT:SER/PL :QN: 35 High 21-31 mmol/L LAB 13092-4([facility]) ANION GAP:SCNC:PT :SER/PLAS:Q N: 9 Normal 6-16 mEq/L Performed By: #### [id number], [id number], [id number], [id number] #### [facility] [address] [place] [address] EGFR Collected: 3 6:18 AM Status: F Source: [facility] REPOSITORY Order Comment: Order added b y Discern Expert. TYPE CODE TESTS RESULT OUT OF RANGE REFERENCE UNITS LAB 40713-7([facility]) GLOMERULAR FILTRATION RATE/1.73 SQ M.PREDICTED.NO N BLACK:ARVRAT:P T:SER/PLAS/BLD :QN:CREATININE -BASED FORMULA (MDRD) 102 Normal >=59 mL/min/1. 73 m2 Result Comment: Chronic kidn ey disease could be indicated at eGFR's of less than 60 mL/min/1.73m2. Kidney failure is indicated at less than 15 mL/min/1.73m2. Performed By: #### [id number], [id number] #### [facility] [address] [place] [address] VANCO PEAK Collected: 3 6:18 AM Status: F Source: [facility] REPOSITORY Order Comment: Please drawn Vancomycin Peak 1 hour after the completion of the 0200 dose on 05/30/23. Thank you. Per Rigoberto nurse draw at 600am per vanco will not be done until 500am heb 05/30/2023 05:18:00 EDT TYPE CODE TESTS RESULT OUT OF RANGE REFERENCE UNITS LAB 71931-0 VANCOMYCIN 25 Normal 20-40 microgram /mL Performed By: #### [id number], [id number], [id number], [id number], [id number] #### [facility] [address] [place] [address] MONITOR RECORD Observed: 05/30/2023 6:02 AM Status: F Source: [facility] REPOSITORY [id number]#1.00TIFF PROGRESS NOTE-PHYSICIAN Observed: 2022 9:30 AM Status: F Source: [facility] REPOSITORY Assessment/Plan 1. COVID-19 (U07.1: COVID-19) ? Remdesivir started 05/27, completed 5 days ? DEXA started 05/27, complete 10 days Ordered: Initial Hospital Care/Day Moderate 55 Minutes 06184 2. Acute hypoxemic respiratory failure (J96.01: Acute [...] Lymph Auto: 12.6 % Low (05/29/23 05:56:00) [place] Auto: 7.5 % (05/29/23 05:56:00) Eos Auto: 0.2 % (05/29/23 05:56:00) Basophil Auto: 0.2 % (05/29/23 05:56:00) Neutro Absolute: 4.6 E9/L (05/29/23 05:56:00) Lymph Absolute: 0.7 E9/L Low (05/29/23 05:56:00) [place] Absolute: 0.4 E9/L (05/29/23 05:56:00) Eos Absolute: [...] 7 mEq/L (05/29/23 05:56:00) Calcium Lvl: 8.6 mg/dL Low (05/29/23 05:56:00) Alk Phos: 43 Int._Unit/L (05/29/23 05:56:00) ALT: 10 Int._Unit/L (05/29/23 05:56:00) AST: 15 Int._Unit/L (05/29/23 05:56:00) Total Protein: 5.2 gm/dL Low (05/29/23 05:56:00) Albumin Lvl: 2.5 gm/dL Low (05/29/23 05:56:00) Globulin: 2.7 gm/dL (05/29/23 05:56:00) A/G Ratio: 0.9 Low (05/29/23 05:56:00) Bili Total: 0.3 mg/dL (05/29/23 05:56:00) Bili Direct: 0.1 mg/dL (05/29/23 05:56:00) Glucose Cap: 120 mg/dL High (05/28/23 16:48:00) POC Device SN: [id number] (05/28/23 16:48:00) POC User ID: [id number] (05/28/23 16:48:00) POC Username: POC Username (05/28/23 16:48:00) Problem List/Past Medical History Ongoing Chronic GERD [...] Daily Requip 1 mg Tab, Oral, TID sildenafil 50 mg Tab, 50 mg= 1 tab(s), Oral, As Directed, 3 refills, Not taking tizanidine 4 mg oral capsule, Oral, TID, Not taking traZODONE 100 mg Tab, 100 mg= 1 tab(s), Oral, Once a day (at bedtime) Trintellix 20 mg oral tablet, Oral, Daily Result Comment: Electronical ly Signed By: Jossue Spivey DO.violeta\Date and Time Signed: 05/29/23 09:30 EDT MONITOR RECORD Observed: 05/29/2023 8:02 AM Status: F Source: [facility] REPOSITORY [id number]#1.00TIFF CBC W/ AUTO DIFF Collected: 05/29/2023 5:56 AM Statu s: F Source: [facility] REPOSITORY TYPE CODE TESTS RESULT OUT OF RANGE REFERENCE UNITS LAB 21828-6(INC) LEUKOCYTES 5.8 Normal 4.0-11.0 E9/L LAB 789-8([facility]) ERYTHROCYTES:NCN C:PT:BLD:QN:AUTO MATED COUNT 3.7 Low 4.3-5.9 E12/L LAB 718-7([facility]) HEMOGLOBIN:MCNC: PT:BLD:QN: 10.9 Low 13.5-17.5 gm/dL LAB 4544-3([facility]) HEMATOCRIT:VFR:P T:BLD:QN:AUTOMAT ED COUNT 32.0 Low 37.7-49.0 % LAB 788-0([facility]) ERYTHROCYTE DISTRIBUTION WIDTH:RATIO:PT:R BC:QN:AUTOMATED COUNT 13.3 Normal 10.9-14.2 % LAB 785-6([facility]) ERYTHROCYTE MEAN CORPUSCULAR HEMOGLOBIN:ENTMA SS:PT:RBC:QN:AUT OMATED COUNT 29.4 Normal 27.0-34.0 pg LAB 786-4([facility]) ERYTHROCYTE MEAN CORPUSCULAR HEMOGLOBIN CONCENTRATION:MC NC:PT:RBC:QN:AUT OMATED COUNT 34.2 Normal 31.4-36.0 gm/dL LAB 787-2([facility]) ERYTHROCYTE MEAN CORPUSCULAR VOLUME:ENTVOL:PT :RBC:QN:AUTOMATE D COUNT 85.8 Normal 80.0-100.0 fL LAB 24633-1([facility]) PLATELET MEAN VOLUME:ENTVOL:PT :BLD:QN:AUTOMATE D COUNT 8.3 Normal 6.4-10.8 fL LAB 777-3([facility]) PLATELETS:NCNC:P T:BLD:QN:AUTOMAT ED COUNT 156.0 Normal 150.0-500.0 E9/L Performed By: #### [id number], [id number], [id number], [id number], [id number], [id number] #### [facility] [address] [place] [address] AUTO DIFF Collected: 10/28/202 3 5:56 AM Status: F Source: [facility] REPOSITORY Order Comment: Order Added b y Discern Expert. TYPE CODE TESTS RESULT OUT OF RANGE REFERENCE UNITS LAB 751-8(LOINC) NEUTROPHILS: NCNC:PT:BLD: QN:AUTOMATED COUNT 79.5 High 36.0-75.0 % LAB 731-0(LOINC) LYMPHOCYTES: NCNC:PT:BLD: QN:AUTOMATED COUNT 12.6 Low 14.0-50.0 % LAB 742-7(LOINC) MONOCYTES:NC NC:PT:BLD:QN :AUTOMATED COUNT 7.5 Normal 4.0-14.0 % LAB 711-2(LOINC) EOSINOPHILS: NCNC:PT:BLD: QN:AUTOMATED COUNT 0.2 Normal 0.0-8.0 % LAB 704-7(LOINC) BASOPHILS:NC NC:PT:BLD:QN :AUTOMATED COUNT 0.2 Normal 0.0-2.0 % LAB 66032-5(LOINC) NEUTROPHILS/ LEUKOCYTES:N FR.DF:PT:BLD :QN:AUTOMATE D COUNT 4.6 Normal 2.0-7.5 E9/L LAB 66349-7(LOINC) LYMPHOCYTES/ LEUKOCYTES:N FR.DF:PT:BLD :QN:AUTOMATE D COUNT 0.7 Low 1.0-4.0 E9/L LAB 60525-4(LOINC) MONOCYTES/LE UKOCYTES:NFR .DF:PT:BLD:Q N:AUTOMATED COUNT 0.4 Normal 0.2-1.0 E9/L LAB 34831-3(LOINC) EOSINOPHILS/ LEUKOCYTES:N FR.DF:PT:BLD :QN:AUTOMATE D COUNT 0.0 Normal 0.0-0.5 E9/L LAB 05332-3(LOINC) BASOPHILS/LE UKOCYTES:NFR .DF:PT:BLD:Q N:AUTOMATED COUNT 0.0 Normal 0.0-0.2 E9/L Performed By: #### [id number], [id number], [id number], [id number], [id number], [id number] #### [facility] [address] [place] [address] [place] [address] BILI DIRECT Collected: 3 5:56 AM Status: F Source: [facility] REPOSITORY Order Comment: Order Added b y Discern Expert. TYPE CODE TESTS RESULT OUT OF RANGE REFERENCE UNITS LAB 1968-7([facility]) BILIRUBIN.GL UCURONIDATED +BILIRUBIN.A LBUMIN BOUND:MCNC:P T:SER/PLAS:Q N: 0.1 Normal 0.1-0.4 mg/dL Performed By: #### [id number], [id number], [id number], [id number], [id number], [id number] #### [facility] [address] [place] [address] CMP Collected: 3 5:56 AM Status: F Source: [facility] REPOSITORY TYPE CODE TESTS RESULT OUT OF RANGE REFERENCE UNITS LAB 2339-0([facility]) GLUCOSE:MCNC: PT:BLD:QN: 93 Normal 55-199 mg/dL Result Comment: If this gluc ose result represents a fasting glucose, interpretation should refer to the following reference range: 55-99 mg/dL LAB 3094-0([facility]) UREA NITROGEN:MCNC :PT:SER/PLAS: QN: 27 High 5-21 mg/dL LAB 2160-0([facility]) CREATININE:MC NC:PT:SER/QUINCY S:QN: 0.8 Normal 0.5-1.3 mg/dL LAB 79479-9([facility]) CALCIUM:MCNC: PT:SER/PLAS:Q N: 8.6 Low 8.9-11.1 mg/dL LAB 2951-2([facility]) SODIUM:SCNC:P T:SER/PLAS:QN : 139 Normal 135-145 mmol/L LAB 2823-3(INC) POTASSIUM:SCN C:PT:SER/PLAS :QN: 3.7 Normal 3.5-5.3 mmol/L LAB 2075-0(INC) CHLORIDE:SCNC :PT:SER/PLAS: QN: 102 Normal 101-111 mmol/L LAB 8-9(INC) CARBON DIOXIDE:SCNC: PT:SER/PLAS:Q N: 34 High 21-31 mmol/L LAB 6768-6([facility]) ALKALINE PHOSPHATASE:C CNC:PT:SER/PL :QN: 43 Normal 21-98 Int._Uni t/L LAB 1975-2([facility]) BILIRUBIN:MCN C:PT:SER/PLAS :QN: 0.3 Normal 0.0-1.1 mg/dL LAB 1751-7([facility]) ALBUMIN:MCNC: PT:SER/PLAS:Q N: 2.5 Low 3.3-5.0 gm/dL LAB 2885-2([facility]) PROTEIN:MCNC: PT:SER/PLAS:Q N: 5.2 Low 6.0-7.8 gm/dL LAB 1744-2([facility]) ALANINE AMINOTRANSFER ASE:CCNC:PT:S ER/PLAS:QN:NO ADDITION OF P-5'-P 10 Normal 6-46 Int._Uni t/L LAB 1920-8([facility]) ASPARTATE AMINOTRANSFER ASE:CCNC:PT:S ER/PLAS:QN: 15 Normal 5-43 Int._Uni t/L LAB 3097-3([facility]) UREA NITROGEN/CREA TININE:MRTO:P T:SER/PLAS:QN : 34 High 10-20 No Units LAB 75957-2([facility]) ANION GAP:SCNC:PT:S ER/PLAS:QN: 7 Normal 6-16 mEq/L LAB 02372-5([facility]) GLOBULIN:MCNC :PT:SER:QN:CA LCULATED 2.7 Normal 1.4-4.0 gm/dL LAB 20648-7([facility]) ALBUMIN/GLOBU BONI:MCRTO:PT: SER:QN: 0.9 Low 1.1-2.2 Performed By: #### [id number], [id number], 7425906, 65612781, [id number], [id number] #### [facility] [address] [place] [address] EGFR Collected: 3 5:56 AM Status: F Source: [facility] REPOSITORY Order Comment: Order added b y Discern Expert. TYPE CODE TESTS RESULT OUT OF RANGE REFERENCE UNITS LAB 02979-3([facility]) GLOMERULAR FILTRATION RATE/1.73 SQ M.PREDICTED.NO N BLACK:ARVRAT:P T:SER/PLAS/BLD :QN:CREATININE -BASED FORMULA (MDRD) 98 Normal >=59 mL/min/1. 73 m2 Result Comment: Chronic kidn ey disease could be indicated at eGFR's of less than 60 mL/min/1.73m2. Kidney failure is indicated at less than 15 mL/min/1.73m2. Performed By: #### [id number], [id number], 7121101, [id number], [id number], [id number] #### [facility] [address] [place] [address] TSH WITH T4FR REFLEX Collected: 5:56 AM Status: F Source: [facility] REPOSITORY TYPE CODE TESTS RESULT OUT OF RANGE REFERENCE UNITS LAB 3016-3([facility]) THYROTROPIN: ACNC:PT:SER/ PLAS:QN: 1.15 Normal 0.34-5.60 mcIU/mL Performed By: #### [id number], 1393821, 1128236, 42048160, [id number], [id number] #### [facility] [address] [place] [address] MONITOR RECORD Observed: 05/29/2023 3:24 AM Status: F Source: [facility] REPOSITORY [id number]#1.00TIFF MONITOR RECORD Observed: 05/29/2023 3:23 AM Status: F Source: [facility] REPOSITORY [id number]#1.00TIFF CAPILLARY GLUCOSE POC Collected: 2022 4:48 PM Status: F Source: [facility] REPOSITORY TYPE CODE TESTS RESULT OUT OF RANGE REFERENCE UNITS LAB 34674836([facility]) Glucose Cap 120 High 55-99 mg/d L Result Comment: Notified RN/ MD Performed By: #### [id number] #### [facility] [address] [place] [address] C BLOOD CHARCOAL Observed: 05/28/2023 3:45 PM Status: F Source: [facility] REPOSITORY Microbiology PROCEDURE: Blood Culture Charcoal [R1] SOURCE: Blood BODY SITE: Hand R COLLECTED DATE/TIME: 05/28/2023 15:45 EDT RECEIVED DATE/TIME: 05/28/2023 16:53 EDT START DATE/TIME: 05/28/2023 16:53 EDT FREE TEXT SOURCE: Jossue Spivey DO, DO, William J. FINAL REPORTS Final Report [] Verified Date/Time: 06/04/2023 18:00 EDT No growth at 7 days. Performing Locations R1: This [facility] performed at: [facility], [address] [place] [address], [id number] [place] [address], Performed By: #### [id number] #### [facility] [address] [place] [address] MONITOR RECORD Observed: 05/28/2023 3:09 PM Status: F Source: [facility] REPOSITORY [id number]#1.00TIFF C BLOOD CHARCOAL Observed: 05/28/2023 2:34 PM Status: F Source: [facility] REPOSITORY Microbiology PROCEDURE: Blood Culture Charcoal [R1] SOURCE: Blood BODY SITE: Arm R COLLECTED DATE/TIME: 05/28/2023 14:34 EDT RECEIVED DATE/TIME: 05/28/2023 15:31 EDT START DATE/TIME: 05/28/2023 15:31 EDT FREE TEXT SOURCE: Jossue Spivey DO, DO, William J. FINAL REPORTS Final Report [] Verified Date/Time: 06/04/2023 16:01 EDT No growth at 7 days. Performing Locations R1: [facility] performed at: [facility], [address] [place] [address], [id number] [place] [address], Performed By: #### [id number] #### [facility] [address] [place] [address] MESSAGE FROM MEDICARE Observed: 05/28/20 2:07 PM Status: F Source: [facility] REPOSITORY [id number]#1.00TIFF PROGRESS NOTE - PHARMACY Observed: 05/28 1:23 PM Status: F Source: [facility] REPOSITORY Vancomycin Pharmacy to Dose Consult Note Indication: [...] Lymph Auto: 6.8 % Low (05/28/23 06:12:00) [place] Auto: 3.6 % Low (05/28/23 06:12:00) Eos Auto: 0 % (05/28/23 06:12:00) Basophil Auto: 0.1 % (05/28/23 06:12:00) Neutro Absolute: 4.9 E9/L (05/28/23 06:12:00) Lymph Absolute: 0.4 E9/L Low (05/28/23 06:12:00) [place] Absolute: 0.2 E9/L (05/28/23 06:12:00) Eos Absolute: [...] (05/27/23:47:00) Rapid COV Int NEG Ctl: Pass (05/27/23 13:47:00) Rapid COV Int POS Ctl: Pass (05/27/23 13:47:00) pH Arterial: 7.404 (05/27/23 13:39:00) P CO2 Arterial: 58 mmHg High (05/27/23 13:39:00) P O2 Arterial: 94.5 mmHg (05/27/23 13:39:00) Base Excess Arterial: 9.7 mmol/L (05/27/23:39:00) HCO3 Arterial: 33.4 mmol/L High (05/27/23 13:39:00) Total Hgb Art: 11.7 gm/dL Low (05/27/23 13:39:00) FO2Hb Art: 97 % (05/27/23 13:39:00) FCOHb Art: 1.6 % (05/27/23 13:39:00) FMetHb Art: 0.3 % (05/27/23 13:39:00) O2 Sat Art: 98.8 % (05/27/23 13:39:00) forest economics professor+ Art: 138 mmol/L (05/27/23 13:39:00) cK+ Art: 4.3 mmol/L (05/27/23 13:39:00) cCa2+ Art: 4.56 mg/dL (05/27/23 13:39:00) cCl- Art: 95 mmol/L Low (05/27/23 13:39:00) cGlu Art: 100 mg/dL High (05/27/23 13:39:00) cLac Art: 0.9 mmol/L (05/27/23 13:39:00) AaDO2 Art: 35.4 mmHg High (05/27/23 13:39:00) a/A Ratio Art: 72.7 % (05/27/23 13:39:00) Sample Type: Arterial Draw (05/27/23 13:39:00) Sample Site: R Radial (05/27/23 13:39:00) FIO2 B.0 (05/27/23 13:39:00) Allens Test: Not Applicable (05/27/23 13:39:00) Drawn by: trs (05/27/23 13:39:00) INSURANCE CORRESPONDENCE OFFICE Observed: 05/28/2023 12:09 PM Status: F Source: [facility] REPOSITORY [id number]#1.00TIFF INSURANCE CORRESPONDENCE OFFICE Observed: 05/28/2023 11:26 AM Status: F Source: [facility] REPOSITORY [id number]#1.00TIFF PROGRESS NOTE-PHYSICIAN Observed: 2022 9:47 AM Status: F Source: [facility] REPOSITORY Assessment/Plan 1. COVID-19 (U07.1: COVID-19) tested positive in ER -remdesivir started 05/27 -Dexa 05/27 Ordered: [facility] Hospital Care/Day Moderate 35 Minutes 6[address] 2. Acute hypoxemic respiratory failure (J96.01: Acute [...] Lymph Auto: 6.8 % Low (05/28/23 06:12:00) Tom [place] Auto: 3.6 % Low (05/28/23 06:12:00) Eos Auto: 0 % (05/28/23 06:12:00) Basophil Auto: 0.1 % (05/28/23 06:12:00) Neutro Absolute: 4.9 E9/L (05/28/23 06:12:00) Lymph Absolute: 0.4 E9/L Low (05/28/23 06:12:00) Tom Green Absolute: 0.2 E9/L (05/28/23 06:12:00) Eos Absolute: [...] (05/27/23:47:00) Rapid COV Int POS Ctl: Pass (05/27/23 13:47:00) pH Arterial: 7.404 (05/27/23 13:39:00) P CO2 Arterial: 58 mmHg High (05/27/23 13:39:00) P O2 Arterial: 94.5 mmHg (05/27/23 13:39:00) Base Excess Arterial: 9.7 mmol/L (05/27/23:39:00) HCO3 Arterial: 33.4 mmol/L High (05/27/23 13:39:00) Total Hgb Art: 11.7 gm/dL Low (05/27/23 13:39:00) FO2Hb Art: 97 % (05/27/23 13:39:00) FCOHb Art: 1.6 % (05/27/23 13:39:00) FMetHb Art: 0.3 % (05/27/23 13:39:00) O2 Sat Art: 98.8 % (05/27/23 13:39:00) forest economics professor+ Art: 138 mmol/L (05/27/23 13:39:00) cK+ Art: 4.3 mmol/L (05/27/23 13:39:00) cCa2+ Art: 4.56 mg/dL (05/27/23 13:39:00) cCl- Art: 95 mmol/L Low (05/27/23 13:39:00) cGlu Art: 100 mg/dL High (05/27/23 13:39:00) cLac Art: 0.9 mmol/L (05/27/23 13:39:00) AaDO2 Art: 35.4 mmHg High (05/27/23 13:39:00) a/A Ratio Art: 72.7 % (05/27/23 13:39:00) Sample Type: Arterial Draw (05/27/23 13:39:00) Sample Site: R Radial (05/27/23 13:39:00) FIO2 B.0 (05/27/23 13:39:00) Allens Test: Not Applicable (05/27/23 13:39:00) Drawn by: trs (05/27/23 13:39:00) Problem List/Past Medical History Ongoing Chronic GERD [...] tab(s), Oral, Once a day (at bedtime) Home Abilify 10 mg Tab, Oral, Daily aspirin 81 mg oral tablet, Oral, Daily CeleBREX 200 mg Cap, Oral, BID divalproex sodium 500 mg ER Tab, Oral, Daily Lyrica 100 mg Cap, 100 mg= 1 cap(s), Oral, TID Pantoprazole [address] Tab, Oral, Daily pravastatin 80 mg Tab, Oral, Daily Requip 1 mg Tab, Oral, TID sildenafil 50 mg Tab, 50 mg= 1 tab(s), Oral, As Directed, 3 refills, Not taking tizanidine 4 mg oral capsule, Oral, TID, Not taking traZODONE 100 mg Tab, 100 mg= 1 tab(s), Oral, Once a day (at bedtime) Trintellix 20 mg oral tablet, Oral, Daily Result Comment: Electronical ly Signed By: Jossue Spivey DO\.br\Date and Time Signed: 05/28/23 09:48 EDT INTERDISCIPLINARY NOTE - 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 Patient is awake, alert and oriented. Patient is from home with his spouse. [place] transport [place]. Patient verified PCP, home DME and insurance. Patient is here as inpatient. Medicare form signed. Patient is here with Weakness, dizziness, and Covid [id number]. Patient is on isolation. Patient is assigned to Dr Spivey, see notes. Patient is on oxygen at 2L/NC. Patient does not wear any home oxygen. Patient will need weaned or a desat completed at [place]. Patient was offered DC needs for DME, HH and PM. Patient denied any DC needs. Patient was provided CRM contact, white board updated. Anticipated DC 05/30? CRM following Result Comment: Electronical ly Signed By: Dolly Copeland\archana\Date and Time Signed: 05/28/23 09:45 EDT INPATIENT PATIENT SUMMARY Observed: 05/03 8:52 AM Status: F Source: [facility] REPOSITORY (Inserted Image. Unable to d isplay) [place] [address] Patient Discharge Instructions PERSON INFORMATION Name: YENI CONNOR Date of : 1960 Current Date: 05/28/2023 08:52:57 PHYSICIANS Admitting Physician: Miriam MCCURDY MD Primary Care Physician: ZULEIAK AGUILERA DO PCP Comment: Discharge Diagnosis: 1:COVID-19; [...] a nearby participating provider. Type Location Start Finish State [facility] Office Visit [facility] 03/22/2024 10:45 AM 03/22/2024 11:00 AM Confirmed Comment: GEETA Francis TIMOTHY A, have received the attached patient education materials/instructions and have verbalized understanding: Patient Signature Date Clinican/Nurse Signature Date HERE ARE THE MEDICATION CHANGES THAT OCCURRED DURING YOUR HOSPITAL STAY Medications to Continue with No Changes Other Medications aripiprazole (Abilify 10 mg Tab) By Mouth every day. Last Dose: Next Dose: aspirin (aspirin 81 mg oral tablet) By Mouth every day. Last Dose: Next Dose: celecoxib (CeleBREX 200 mg Cap) By Mouth 2 times a day. Last Dose: Next Dose: divalproex sodium (divalproex sodium 500 mg ER Tab) By Mouth every day. Last Dose: Next Dose: pantoprazole (Pantoprazole [address] Tab) By Mouth every day. Last Dose: Next Dose: pravastatin (pravastatin 80 mg Tab) By Mouth every day. Last Dose: Next Dose: pregabalin (Lyrica 100 mg Cap) 1 Capsules By Mouth 3 times a day. Last Dose: Next Dose: ropinirole (Requip 1 mg Tab) By Mouth 3 times a day. Last Dose: Next Dose: sildenafil (sildenafil 50 mg Tab) 1 Tablets By Mouth As Directed. 1 hour before sexual activity. Do not exceed 100 mg (2 tabs) in 24 hours. Cannot take with nitro products.. Refills: 3. Last Dose: Next Dose: tizanidine (tizanidine 4 mg oral capsule) By Mouth 3 times a day. Last Dose: Next Dose: trazodone (traZODONE 100 mg Tab) 1 Tablets By Mouth once a day (at bedtime). Last Dose: Next Dose: vortioxetine (Trintellix 20 mg oral tablet) By Mouth every day. Last Dose: Next Dose: Comment: MEDICATION LIST PROVIDED FOR YOU IS [...] tablet) By Mouth every day. Pharmacy Information: [facility] Isiah Comment: PATIENT EDUCATION INFORMATION Instructions: Medication Leaflets: You may receive a survey from [employer] asking you to rate your care experience. Your feedback is important and will help us understand what we do well and how we can improve the quality of care we provide to you, your loved ones and our community. It?s an honor to serve you. Thank you for choosing [facility] INPATIENT CLINICAL SUMMARY Observed: 8:52 AM Status: F Source: [facility] REPOSITORY (Inserted Image. Unable to d isplay) [address] [address] Clinical Summary Person Information: Name: YENI CONNOR Age: 63 Years : 1960 Sex: Male PCP: ZULEIKA AGUILERA DO Marital Status: Race: White Ethnicity: Non- or Language: Yemeni Visit Id: Visit Reason: Cough; Dizziness; Weakness or fatigue; WEAKNESS, DIZZINESS Speciality: Acuity: Enc Type: Inpatient Med Service: Medical Arrival: 05/27/2023 13:12:53 Discharge: Dispo Type: Admitted as IP to this Hosp Address: [address] [place] [id number] Provider Notes: Diagnosis: 1:COVID-19; 2:Acute hypoxemic respiratory [...] Location Start Finish State [facility] Office Visit [facility] [place] EU Isiah 03/22/2024 10:45 AM 03/22/2024 11:00 AM Confirmed Patient Education Information: INTERDISCIPLINARY NOTE - PT Observed: 8:25 AM Status: F Source: [facility] REPOSITORY PT Evaluation done this date . Pt. with on AM-PAC this date. He is safe and independent with all functional activities. Does have some decreased endurance. Educated on getting up to chair throughout the day. No further PT needs. CBC W/ AUTO DIFF Collected: 05/28/2023 6:12 AM Statu s: F Source: [facility] REPOSITORY TYPE CODE TESTS RESULT OUT OF RANGE REFERENCE UNITS LAB 54072-6(LOINC) LEUKOCYTES 5.5 Normal 4.0-11.0 E9/L LAB 789-8(LOINC) ERYTHROCYTES:NCN C:PT:BLD:QN:AUTO MATED COUNT 4.2 Low 4.3-5.9 E12/L LAB 718-7(INC) HEMOGLOBIN:MCNC: PT:BLD:QN: 12.2 Low 13.5-17.5 gm/dL LAB 4544-3([facility]) HEMATOCRIT:VFR:P T:BLD:QN:AUTOMAT ED COUNT 36.2 Low 37.7-49.0 % LAB 788-0([facility]) ERYTHROCYTE DISTRIBUTION WIDTH:RATIO:PT:R BC:QN:AUTOMATED COUNT 13.1 Normal 10.9-14.2 % LAB 785-6([facility]) ERYTHROCYTE MEAN CORPUSCULAR HEMOGLOBIN:ENTMA SS:PT:RBC:QN:AUT OMATED COUNT 29.1 Normal 27.0-34.0 pg LAB 786-4([facility]) ERYTHROCYTE MEAN CORPUSCULAR HEMOGLOBIN CONCENTRATION:MC NC:PT:RBC:QN:AUT OMATED COUNT 33.7 Normal 31.4-36.0 gm/dL LAB 787-2([facility]) ERYTHROCYTE MEAN CORPUSCULAR VOLUME:ENTVOL:PT :RBC:QN:AUTOMATE D COUNT 86.4 Normal 80.0-100.0 fL LAB 93441-6([facility]) PLATELET MEAN VOLUME:ENTVOL:PT :BLD:QN:AUTOMATE D COUNT 7.9 Normal 6.4-10.8 fL LAB 777-3([facility]) PLATELETS:NCNC:P T:BLD:QN:AUTOMAT ED COUNT 147.0 Low 150.0-500.0 E9/L Performed By: #### [id number] #### [facility] [address] [place] [address] AUTO DIFF Collected: 3 6:12 AM Status: F Source: [facility] REPOSITORY Order Comment: Order Added b y Discern Expert. TYPE CODE TESTS RESULT OUT OF RANGE REFERENCE UNITS LAB 751-8([facility]) NEUTROPHILS: NCNC:PT:BLD: QN:AUTOMATED COUNT 89.5 High 36.0-75.0 % LAB 731-0(LOINC) LYMPHOCYTES: NCNC:PT:BLD: QN:AUTOMATED COUNT 6.8 Low 14.0-50.0 % LAB 742-7(INC) MONOCYTES:NC NC:PT:BLD:QN :AUTOMATED COUNT 3.6 Low 4.0-14.0 % LAB 711-2(INC) EOSINOPHILS: NCNC:PT:BLD: QN:AUTOMATED COUNT 0.0 Normal 0.0-8.0 % LAB 704-7(INC) BASOPHILS:NC NC:PT:BLD:QN :AUTOMATED COUNT 0.1 Normal 0.0-2.0 % LAB 34557-0(INC) NEUTROPHILS/ LEUKOCYTES:N FR.DF:PT:BLD :QN:AUTOMATE D COUNT 4.9 Normal 2.0-7.5 E9/L LAB 88166-1(INC) LYMPHOCYTES/ LEUKOCYTES:N FR.DF:PT:BLD :QN:AUTOMATE D COUNT 0.4 Low 1.0-4.0 E9/L LAB 47733-4([facility]) MONOCYTES/LE UKOCYTES:NFR .DF:PT:BLD:Q N:AUTOMATED COUNT 0.2 Normal 0.2-1.0 E9/L LAB 77485-5(INC) EOSINOPHILS/ LEUKOCYTES:N FR.DF:PT:BLD :QN:AUTOMATE D COUNT 0.0 Normal 0.0-0.5 E9/L LAB 27573-5([facility]) BASOPHILS/LE UKOCYTES:NFR .DF:PT:BLD:Q N:AUTOMATED COUNT 0.0 Normal 0.0-0.2 E9/L Performed By: #### [id number], [id number] #### [facility] [address] [place] [address] [facility] Collected: 3 6:12 AM Status: F Source: [facility] REPOSITORY TYPE CODE TESTS RESULT OUT OF RANGE REFERENCE UNITS LAB 2339-0([facility]) GLUCOSE:MCN C:PT:BLD:QN : 107 Normal 55-199 mg/dL Result Comment: If this gluc ose result represents a fasting glucose, interpretation should refer to the following reference range: 55-99 mg/dL LAB 3094-0([facility]) UREA NITROGEN:MC NC:PT:SER/P LAS:QN: 19 Normal 5-21 mg/dL LAB 2160-0([facility]) CREATININE: MCNC:PT:SER /PLAS:QN: 0.8 Normal 0.5-1.3 mg/dL LAB 3097-3([facility]) UREA NITROGEN/CR EATININE:MR TO:PT:SER/P LAS:QN: 24 High 10-20 No Units LAB 60377-3([facility]) CALCIUM:MCN C:PT:SER/PL :QN: 9.1 Normal 8.9-11.1 mg/dL LAB 2951-2([facility]) SODIUM:SCNC :PT:SER/QUINCY S:QN: 140 Normal 135-145 mmol/L LAB 2823-3([facility]) POTASSIUM:S CNC:PT:SER/ PLAS:QN: 4.2 Normal 3.5-5.3 mmol/L LAB 2075-0([facility]) CHLORIDE:SC NC:PT:SER/P LAS:QN: 98 Low 101-111 mmol/L LAB 8-9([facility]) CARBON DIOXIDE:SCN C:PT:SER/PL :QN: 36 High 21-31 mmol/L LAB 64952-0([facility]) ANION GAP:SCNC:PT :SER/PLAS:Q N: 10 Normal 6-16 mEq/L Performed By: #### [id number], [id number], [id number], [id number], [id number] #### [facility] [address] [place] [address] EGFR Collected: 3 6:12 AM Status: F Source: [facility] REPOSITORY Order Comment: Order added b y Discern Expert. TYPE CODE TESTS RESULT OUT OF RANGE REFERENCE UNITS LAB 89640-2([facility]) GLOMERULAR FILTRATION RATE/1.73 SQ M.PREDICTED.NO N BLACK:ARVRAT:P T:SER/PLAS/BLD :QN:CREATININE -BASED FORMULA (MDRD) 98 Normal >=59 mL/min/1. 73 m2 Result Comment: Chronic kidn ey disease could be indicated at eGFR's of less than 60 mL/min/1.73m2. Kidney failure is indicated at less than 15 mL/min/1.73m2. Performed By: #### [id number], [id number], [id number], [id number], [id number] #### [facility] [address] [place] [address] HEP FUNC PANEL Collected: 3 6:12 AM Status: F Source: [facility] REPOSITORY TYPE CODE TESTS RESULT OUT OF RANGE REFERENCE UNITS LAB 1744-2(INC) ALANINE AMINOTRANSFER ASE:CCNC:PT:S ER/PLAS:QN:NO ADDITION OF P-5'-P 10 Normal 6-46 Int._Unit /L LAB 1920-8(INC) ASPARTATE AMINOTRANSFER ASE:CCNC:PT:S ER/PLAS:QN: 16 Normal 5-43 Int._Unit /L LAB 1751-7(INC) ALBUMIN:MCNC: PT:SER/PLAS:Q N: 3.2 Low 3.3-5.0 gm/dL LAB 51408-6(INC) GLOBULIN:MCNC :PT:SER:QN:CA LCULATED 3.3 Normal 1.4-4.0 gm/dL LAB 84888-2(INC) ALBUMIN/GLOBU BONI:MCRTO:PT: SER:QN: 1.0 Low 1.1-2.2 LAB 6768-6(INC) ALKALINE PHOSPHATASE:C CNC:PT:SER/PL :QN: 58 Normal 21-98 Int._Unit /L LAB 1968-7(INC) BILIRUBIN.GLU CURONIDATED+B ILIRUBIN.ALBU MIN BOUND:MCNC:PT :SER/PLAS:QN: 0.2 Normal 0.1-0.4 mg/dL LAB 99178-5(LOINC) BILIRUBIN.NON -GLUCURONIDAT ED:MSCNC:PT:S ER/PLAS:QN: 0.4 Normal 0.1-0.9 mg/dL LAB 1974-2(LOINC) BILIRUBIN:MCN C:PT:SER/PLAS :QN: 0.5 Normal 0.0-1.1 mg/dL LAB 2885-2(LOINC) PROTEIN:MCNC: PT:SER/PLAS:Q N: 6.5 Normal 6.0-7.8 gm/dL Performed By: #### [id number], [id number], [id number], [id number], [id number] #### [facility] [address] [place] [address] UA WITH CULT REFLEX Collected: 05/28/20 12:53 AM Status: F Source: [facility] REPOSITORY TYPE CODE TESTS RESULT OUT OF RANGE REFERENCE UNITS LAB 9194-2([facility]) CLASS:TYPE:PT: URINE COLLECTION METHOD:NOM:* Random Urine Normal LAB 72154-2([facility]) COLOR:TYPE:PT: URINE:NOM:AUTO YELLOW Normal Yellow LAB 64582-4([facility]) CLARITY:TYPE:P T:URINE:NOM: CLEAR Normal Clear LAB 5811-5([facility]) SPECIFIC GRAVITY:RDEN:P T:URINE:SEMIQN :TEST STRIP 1.010 Unknown 1.005-1.030 LAB 5803-2([facility]) PH:LSCNC:PT:UR INE:SEMIQN:SILVANO T STRIP 6.5 Unknown 5.0-9.0 LAB 5804-0([facility]) PROTEIN:MCNC:P T:URINE:SEMIQN :TEST STRIP NEGATIVE Normal Negative LAB 5792-7([facility]) GLUCOSE:MCNC:P T:URINE:SEMIQN :TEST STRIP NEGATIVE Normal Negative LAB 5797-6([facility]) KETONES:MCNC:P T:URINE:SEMIQN :TEST STRIP NEGATIVE Normal Negative LAB 5770-3([facility]) BILIRUBIN:PRTH R:PT:URINE:ORD :TEST STRIP NEGATIVE Normal Negative LAB 5794-3([facility]) HEMOGLOBIN:PRT HR:PT:URINE:OR D:TEST STRIP NEGATIVE Normal Negative LAB 5802-4(INC) NITRITE:PRTHR: PT:URINE:ORD:T EST STRIP NEGATIVE Normal Negative LAB 76994-2([facility]) LEUKOCYTES:PRT HR:PT:URINE:OR D:AUTOMATED NEGATIVE Normal Negative LAB 41479-1([facility]) UROBILINOGEN:A CNC:PT:URINE:S EMIQN:TEST STRIP >=8.0 Abnormal 0.0-1.0 EU/dL LAB 5821-4([facility]) LEUKOCYTES:IOANA IC:PT:URINE SED:QN:MICROSC OPY.LIGHT.HPF 0-5 Normal 0-5 /HPF LAB 04037-5([facility]) LITHIUM.PLASMA /LITHIUM.RBC:M RTO:PT:BLD:QN: 0-3 Normal 0-3 /HPF LAB 63567-9([facility]) EPITHELIAL CELLS.SQUAMOUS :NARIC:PT:URIN E SED:QN:MICROSC OPY.LIGHT.HPF 0-2 Normal 0-2 /HPF Performed By: #### [id number] #### [facility] [address] [place] [address] TROPONIN 9 HR. Collected: 3 10:05 PM Status: F Source: [facility] REPOSITORY TYPE CODE TESTS RESULT OUT OF RANGE REFERENCE UNITS LAB 15240-9([facility]) TROPONIN I.CARDIAC:MC NC:PT:SER/PL :QN: 6.00 Low 15.90-38.40 pg/mL Result Comment: The 95% CI ( Confidence Interval) PPV (Positive Predictive Value) for myocardial infarction in females is 38 pg/mL, in males 51 pg/mL. The results should be used in conjunction with clinical conditions of myocardial infarction. (Access High Sensitivity Troponin I Instructions For Use, Glow, March 2018) Performed By: #### [id number] #### [facility] [address] [place] [address] TROPONIN 6 HR. Collected: 3 7:20 PM Status: F Source: [facility] REPOSITORY TYPE CODE TESTS RESULT OUT OF RANGE REFERENCE UNITS LAB 40433-6([facility]) TROPONIN I.CARDIAC: NC:PT:SER/PL :QN: 6.00 Low 15.90-38.40 pg/mL Result Comment: The 95% CI ( Confidence Interval) PPV (Positive Predictive Value) for myocardial infarction in females is 38 pg/mL, in males 51 pg/mL. The results should be used in conjunction with clinical conditions of myocardial infarction. (Access High Sensitivity Troponin I Instructions For Use, Glow, March 2018) Performed By: #### [id number] #### [facility] [address] [place] [address] HISTORY AND PHYSICAL Observed: 3 5:44 PM Status: F Source: [facility] REPOSITORY Basic Information Admit Date/Time:05/27/2023 16:03 Chief Complaint Pt [...] he normally does. 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 Patient denies alcohol use and states he smoked a long time ago. Patient states he did get the COVID-vaccine but did not get booster this year. is also concerned that he has been acting off lately and is worried about possible UTI. Patient does have history of prostate as well as tonsil cancer and follows with oncologist in [place]. Patient has not had any type of [...] Lymph Auto: 2.1 % Low (05/27/23 13:50:00) [place] Auto: 4.6 % (05/27/23 13:50:00) Eos Auto: 0.1 % (05/27/23 13:50:00) Basophil Auto: 0 % (05/27/23 13:50:00) Neutro Absolute: 8.3 E9/L High (05/27/23 13:50:00) Lymph Absolute: 0.2 E9/L Low (05/27/23 13:50:00) [place] Absolute: 0.4 E9/L (05/27/23 13:50:00) Eos Absolute: [...] High (05/27/23 13:50:00) Influenzae A Ag: NEGATIVE1 (05/27/23 13:47:00) Influenzae [...] % (05/27/23 13:39:00) FCOHb Art: 1.6 % (05/27/23:39:00) FMetHb Art: 0.3 % (05/27/23:39:00) O2 Sat Art: 98.8 % (05/27/23 13:39:00) forest economics professor+ Art: 138 mmol/L (05/27/23:39:00) cK+ Art: 4.3 mmol/L (05/27/23 13:39:00) cCa2+ Art: 4.56 mg/dL (05/27/23 13:39:00) cCl- Art: 95 mmol/L Low (05/27/23:39:00) cGlu Art: 100 mg/dL High (05/27/23 13:39:00) cLac Art: 0.9 mmol/L (05/27/23:39:00) AaDO2 Art: 35.4 mmHg High (05/27/23 13:39:00) a/A Ratio Art: 72.7 % (05/27/23 13:39:00) Sample Type: Arterial Draw (05/27/23:39:00) Sample Site: R Radial (05/27/23:39:00) FIO2 B.0 (05/27/23 13:39:00) Allens Test: Not Applicable (05/27/23 13:39:00) Drawn by: trs (05/27/23 13:39:00) Assessment/Plan Will be admitted under inpatient status due to length of stay estimated greater than 2 midnights. All imaging and labs were reviewed by myself. DVT PPx?Lovenox 40 mg once a day, PAS bilaterally Diet?regular CODE STATUS?full code 1. COVID-19 (U07.1: COVID-19) Positive in the ER ? Start patient on remdesivir for 5 days, dexamethasone 6 mg daily ? Monitor vitals and labs Ordered: Initial Hospital Care/Day Moderate 55 Minutes [id number] 2. Acute hypoxemic respiratory failure (J96.01: Acute respiratory failure with hypoxia) secondary to above ? Wean O2 as tolerated, incentive spirometer, steroids, out of bed 3. UTI symptoms (R39.9: Unspecified symptoms and signs involving the genitourinary system) UA pending ? If positive we will check urine culture and treat accordingly 4. Essential hypertension (I10: Essential (primary) hypertension) Monitor ? Continue home meds 5. HLD (hyperlipidemia) (E78.5: [...] Resuscitation Status - Full Vital Signs Weight Problem List/Past Medical History Ongoing Chronic GERD Depression Elevated PSA Erectile dysfunction after radical prostatectomy Essential hypertension Frequent urination History of prostate cancer HLD (hyperlipidemia) Microscopic hematuria Mixed incontinence Post-void dribbling Prostate cancer Proteinuria Recurrent major depression RLS (restless legs syndrome) Urge incontinence Historical No qualifying data Procedure/Surgical History Radical retropubic prostatectomy (05/09/2020), Transrectal biopsy of prostate (02/29/2020), External beam radiotherapy (2007), Colonoscopy, Tonsillectomy. Medications Inpatient acetaminophen 325 mg Tab, 650 mg= 2 tab(s), Oral, q6hr, PRN dexamethasone 4 mg/mL Inj 1 mL, 6 mg= 1.5 mL, IV Push, Daily enoxaparin 40 mg/0.4 mL SC Ally, 40 mg= 0.4 mL, SubCutaneous, Daily remdesivir additive + Sodium Chloride 0.9% intravenous solution 250 mL remdesivir additive + Sodium Chloride 0.9% intravenous solution 250 mL Home Abilify 10 mg Tab, Oral, Daily aspirin 81 mg oral tablet, Oral, Daily CeleBREX 200 mg Cap, Oral, BID divalproex sodium 500 mg ER Tab, Oral, Daily Lyrica 100 mg Cap, 100 mg= 1 cap(s), Oral, TID Pantoprazole [address] Tab, Oral, Daily pravastatin 80 mg Tab, Oral, Daily Requip 1 mg Tab, Oral, TID sildenafil 50 mg Tab, 50 mg= 1 tab(s), Oral, As Directed, 3 refills tizanidine 4 mg oral capsule, Oral, TID Trintellix 20 mg oral tablet, Oral, Daily Allergies No Known Medication Allergies Social History Alcohol - Denies Alcohol Use, 02/13/2020 Tobacco quit 30 years ago Tobacco Use:. Never Smokeless Tobacco Use:. Cigarettes, Stopped age 28 Years. Household tobacco concerns: No. Yes, 03/17/2023 Family History Cancer: Mother. Diabetes mellitus type 2: Mother. Primary malignant neoplasm of female breast: Sister. Immunizations Vaccine Date Status Comments influenza virus vaccine, inactivated 07/14/2022 Recorded SARS-CoV-2 (COVID-19) mRNAMUL.ORD![id number] 07/14/2022 Recorded SARS-CoV-2 (COVID-19) mRNA-1273 vaccine 07/15/2021 Recorded SARS-CoV-2 (COVID-19) mRNA-1273 vaccine 07/05/2021 Recorded booster SARS-CoV-2 (COVID-19) Ad26 vaccine 10/07/2020 Recorded influenza virus vaccine, inactivated 05/10/2020 Recorded influenza virus vaccine, inactivated 05/15/2019 Recorded influenza virus vaccine, inactivated 08/12/2018 Recorded influenza, unspecified formulation 05/21/2017 Recorded diphtheria/pertussis, acel/tetanus adult 05/21/2016 Recorded influenza virus vaccine, inactivated 05/24/2015 Recorded Result Comment: Electronical ly Signed By: Jossue Spivey DO.br\Date and Time Signed: 05/27/23 17:45 EDT ED CLINICAL SUMMARY Observed: 05/27/2023 4:59 PM Status: F Source: [facility] REPOSITORY (Inserted Image. Unable to d isplay) [place] [id number] ED Clinical Summary Person Information Name: YENI CONNOR/[facility] Age: 63 Years : 1960 Sex: Male Language: Yemeni PCP: ZULEIKA AGUILERA DO Marital Status: Visit Id: Visit Reason: Cough; Dizziness; Weakness or fatigue; WEAKNESS, DIZZINESS Speciality: Acuity: 1 Enc Type: Observation Med Service: Emergency Arrival: 05/27/2023 13:12:53 Discharge: LOS: 000 03:47 Checkin: 05/27/2023 13:12:53 Checkout: 05/27/2023 16:59:23 Dispo Type: Admitted as IP to this [facility] EVENTS: Event Name Event Status Request Date/Time [...] 16:40:23 Patient Care Request 05/27/2023 16:40:24 ADDRESS: [address] [place] [address] [facility] [phone] PHYS DOC NOTES: MEDICAL INFORMATION: Prescriptions Given: Medications [...] up: DIAGNOSIS: Acute hypoxemic respiratory failure; COVID-19 ED PATIENT SUMMARY Observed: 05/27/2023 4:59 PM Status: F Source: [facility] REPOSITORY (Inserted Image. Unable to d isplay) [place] [address] Patient Discharge Instructions Person Information Name: YENI CONNOR Age: 63 Years Arrival Date: 05/27/2023 13:12:53 Discharge Diagnosis: Acute hypoxemic respiratory failure; COVID-19 Primary Care Physician: ZULEIKA AGUILERA DO Provider Information Primary Provider: Samy Benjamin DO Advanced Occupational Therapy Technician:Barney Duncan PA-C The exam and treatment you received in the Emergency Department were for an urgent problem and are not intended as complete care. It is important that you follow up with a doctor, nurse practitioner, or physician?s recruitment assistant for ongoing care. If your symptoms become [...] opioids can be used to help relieve alcmpsvv-xq-xeiitu pain and are often prescribed following a [...] unused prescription opioids: Find your community drug take- back program or your pharmacy mail-back program, or flush them down the toilet, following guidance from the Food and Drug Administration (www.fda.gov/Drugs/ResourcesForYou). ? Visit www.cdc.gov/drugoverdose to learn about the risks of opioids abuse and overdose. ? If you believe you may be struggling with addiction, tell your health clinical care leader and ask for guidance or call [facility] National Helpline at 6-746-171-KVMT. o Source: [place] Department of Health and Human Services/Center for Disease Control & Prevention [facility] Medications Given: Medication Dose Route albuterol-ipratropium 3.00 mL Inhalation Sodium Chloride 0.9% intravenous solution 1000.00 mL IV Left Mid Forearm Medication Information: Medications to Continue with No Changes Other [...] mg oral tablet) By Mouth every day. Comment: Pharmacy Information: Patient Portal You may access all of your results and other medical record information on our secure patient portal. If you are not signed up for this yet, please contact [employer] at [phone] to get signed up today. You may receive a survey from [facility] asking you to rate your care experience. Your feedback is important and will help us understand what we do well and how we can improve the quality of care we provide to you, your loved ones and our community. It?s an honor to serve you. Thank you for choosing [facility] Patient Education Materials: GEETA Francis TIMOTHY A , have received the following patient education materials/instructions and have verbalized understanding: Patient Education Materials: Follow-up Instructions: Patient Signature Date Clinician/Nurse Signature Date 05/27/2023 16:59:25 MONITOR RECORD Observed: 05/27/2023 4:59 PM Status: F Source: [facility] REPOSITORY [id number]#1.00TIFF TROPONIN 3 HR. Collected: 4:24 PM Status: F Source: [facility] REPOSITORY TYPE CODE TESTS RESULT OUT OF RANGE REFERENCE UNITS LAB 65935-3(LOINC) TROPONIN I.CARDIAC: NC:PT:SER/PL :QN: 6.40 Low 15.90-38.40 pg/mL Result Comment: The 95% CI ( Confidence Interval) PPV (Positive Predictive Value) for myocardial infarction in females is 38 pg/mL, in males 51 pg/mL. The results should be used in conjunction with clinical conditions of myocardial infarction. (Access High Sensitivity Troponin I Instructions For Use, Sebastian Alma, March 2018) Performed By: #### [id number] #### [facility] [address] [place] [address] REPORTABILITY RESPONSE - PUBLIC HEALTH Observed: 05/27/2023 3:45 PM Status: F Source: [facility] REPOSITORY {[id number]}XML XR CHEST SINGLE VIEW Observed: 2:26 PM Status: F Source: [facility] REPOSITORY Exam Date/Time: 05/27/2023 14:40 EDT Reason for [...] MONSTER Technologist: RAFIA Technical Comments Radiation Dose: Kar in mGy = na DAP = na CONSENT FOR TREATMENT Observed: 05/27/20 1:59 PM Status: F Source: [facility] REPOSITORY [id number]#1.00TIFF C BLOOD CHARCOAL Observed: 05/27/2023 1:53 PM Status: F Source: [facility] REPOSITORY Microbiology PROCEDURE: Blood Culture Charcoal [R1] SOURCE: Blood [...] Locations R1: This test was performed at: [facility], [address] [place] [address], [address]- , , Performed By: #### [id number] #### [facility] [address] [place] [id number] CBC W/ AUTO DIFF Collected: 05/27/2023 1:50 PM Statu s: F Source: [facility] REPOSITORY TYPE CODE TESTS RESULT OUT OF RANGE REFERENCE UNITS LAB 90047-2(LOINC) LEUKOCYTES 8.9 Normal 4.0-11.0 E9/L LAB 789-8(LOINC) ERYTHROCYTES:NCN C:PT:BLD:QN:AUTO MATED COUNT 4.1 Low 4.3-5.9 E12/L LAB 718-7(LOINC) HEMOGLOBIN:MCNC: PT:BLD:QN: 11.8 Low 13.5-17.5 gm/dL LAB 4544-3(LOINC) HEMATOCRIT:VFR:P T:BLD:QN:AUTOMAT ED COUNT 35.4 Low 37.7-49.0 % LAB 788-0(LOINC) ERYTHROCYTE DISTRIBUTION WIDTH:RATIO:PT:R BC:QN:AUTOMATED COUNT 13.1 Normal 10.9-14.2 % LAB 785-6(LOINC) ERYTHROCYTE MEAN CORPUSCULAR HEMOGLOBIN:ENTMA SS:PT:RBC:QN:AUT OMATED COUNT 29.2 Normal 27.0-34.0 pg LAB 786-4(LOINC) ERYTHROCYTE MEAN CORPUSCULAR HEMOGLOBIN CONCENTRATION:MC NC:PT:RBC:QN:AUT OMATED COUNT 33.5 Normal 31.4-36.0 gm/dL LAB 787-2(LOINC) ERYTHROCYTE MEAN CORPUSCULAR VOLUME:ENTVOL:PT :RBC:QN:AUTOMATE D COUNT 87.2 Normal 80.0-100.0 fL LAB 12739-0(LOINC) PLATELET MEAN VOLUME:ENTVOL:PT :BLD:QN:AUTOMATE D COUNT 8.1 Normal 6.4-10.8 fL LAB 777-3(LOINC) PLATELETS:NCNC:P T:BLD:QN:AUTOMAT ED COUNT 123.0 Low 150.0-500.0 E9/L Performed By: #### [id number], [id number], [id number], [id number], [id number], [id number], [id number] #### [facility] [address] [place] [address] AUTO DIFF Collected: 3 1:50 PM Status: F Source: [facility] REPOSITORY Order Comment: Order Added b y Discern Expert. TYPE CODE TESTS RESULT OUT OF RANGE REFERENCE UNITS LAB 751-8(LOINC) NEUTROPHILS: NCNC:PT:BLD: QN:AUTOMATED COUNT 93.2 High 36.0-75.0 % LAB 731-0(LOINC) LYMPHOCYTES: NCNC:PT:BLD: QN:AUTOMATED COUNT 2.1 Low 14.0-50.0 % LAB 742-7(LOINC) MONOCYTES:NC NC:PT:BLD:QN :AUTOMATED COUNT 4.6 Normal 4.0-14.0 % LAB 711-2(LOINC) EOSINOPHILS: NCNC:PT:BLD: QN:AUTOMATED COUNT 0.1 Normal 0.0-8.0 % LAB 704-7(LOINC) BASOPHILS:NC NC:PT:BLD:QN :AUTOMATED COUNT 0.0 Normal 0.0-2.0 % LAB 35569-4(LOINC) NEUTROPHILS/ LEUKOCYTES:N FR.DF:PT:BLD :QN:AUTOMATE D COUNT 8.3 High 2.0-7.5 E9/L LAB 06756-0(LOINC) LYMPHOCYTES/ LEUKOCYTES:N FR.DF:PT:BLD :QN:AUTOMATE D COUNT 0.2 Low 1.0-4.0 E9/L LAB 96777-3(LOINC) MONOCYTES/LE UKOCYTES:NFR .DF:PT:BLD:Q N:AUTOMATED COUNT 0.4 Normal 0.2-1.0 E9/L LAB 96403-0(LOINC) EOSINOPHILS/ LEUKOCYTES:N FR.DF:PT:BLD :QN:AUTOMATE D COUNT 0.0 Normal 0.0-0.5 E9/L LAB 18921-5([facility]) BASOPHILS/LE UKOCYTES:NFR .DF:PT:BLD:Q N:AUTOMATED COUNT 0.0 Normal 0.0-0.2 E9/L Performed By: #### [id number], [id number], [id number], [id number], [id number], [id number], [id number] #### [facility] [address] [place] [address] PT & PTT Collected: 3 1:50 PM Status: F Source: [facility] REPOSITORY TYPE CODE TESTS RESULT OUT OF RANGE REFERENCE UNITS LAB 5902-2([facility]) COAGULATION TISSUE FACTOR INDUCED:TIME:P T:PPP:QN:COAG 14.2 High 9.4-12.5 second( s) Result Comment: 15 days - 4 weeks 1 - [...] the same coagulation reagent and instrumentation as [facility]. Currently there are no coagulation studies available worldwide for children to 14 days, and no normal ranges. LAB 96855-9([facility] ) COAGULATION SURFACE INDUCED:TIME:P T:PPP:QN:COAG 27.2 Normal 25.1-36.5 second( s) Result Comment: Parameter 15 days - 4 weeks 1 - [...] the same coagulation reagent and instrumentation as [facility]. Currently there are no coagulation studies available worldwide for children to 14 days, and no normal ranges. Heparin therapeutic range (represented by Anti-Factor Xa activity of 0.2 - 0.4 U/mL) corresponds to PTT of 56.6 - 109.0 sec. LAB 6301-6([facility]) COAGULATION TISSUE FACTOR INDUCED.INR:RE LTIME:PT:PPP:Q N:COAG 1.3 Unknown Result Comment: INR results are specifically intended to assess patients stabilized on long-term Anticoagulation therapy suggested INR?s ?Less Intensive Anticoagulation? 2.0 ? 3.0 Conventional Range 3.0 ? 4.5 Performed By: #### [id number], [id number], [id number], [id number], [id number], [id number], [id number] #### [facility] [address] [place] [address] BMP Collected: 3 1:50 PM Status: F Source: [facility] REPOSITORY TYPE CODE TESTS RESULT OUT OF RANGE REFERENCE UNITS LAB 2339-0([facility]) GLUCOSE:MCN C:PT:BLD:QN : 98 Normal 55-199 mg/dL Result Comment: If this gluc ose result represents a fasting glucose, interpretation should refer to the following reference range: 55-99 mg/dL LAB 3094-0(INC) UREA NITROGEN:MC NC:PT:SER/P LAS:QN: 21 Normal 5-21 mg/dL LAB 2160-0(LOINC) CREATININE: MCNC:PT:SER /PLAS:QN: 1.0 Normal 0.5-1.3 mg/dL LAB 3097-3(INC) UREA NITROGEN/CR EATININE:MR TO:PT:SER/P LAS:QN: 21 High 10-20 No Units LAB 03406-9([facility]) CALCIUM:MCN C:PT:SER/PL :QN: 8.4 Low 8.9-11.1 mg/dL LAB 2951-2([facility]) SODIUM:SCNC :PT:SER/QUINCY S:QN: 135 Normal 135-145 mmol/L LAB 2823-3([facility]) POTASSIUM:S CNC:PT:SER/ PLAS:QN: 4.4 Normal 3.5-5.3 mmol/L LAB 2075-0([facility]) CHLORIDE:SC NC:PT:SER/P LAS:QN: 95 Low 101-111 mmol/L LAB 2027-9([facility]) CARBON DIOXIDE:SCN C:PT:SER/PL :QN: 31 Normal 21-31 mmol/L LAB 81691-2([facility]) ANION GAP:SCNC:PT :SER/PLAS:Q N: 13 Normal 6-16 mEq/L Performed By: #### [id number], [id number], [id number], [id number], [id number], [id number], [id number] #### [facility] [address] [place] [address] EGFR Collected: 1:50 PM Status: F Source: [facility] REPOSITORY Order Comment: Order added b y Discern Expert. TYPE CODE TESTS RESULT OUT OF RANGE REFERENCE UNITS LAB 19137-5([facility]) GLOMERULAR FILTRATION RATE/1.73 SQ M.PREDICTED.NO N BLACK:ARVRAT:P T:SER/PLAS/BLD :QN:CREATININE -BASED FORMULA (MDRD) 84 Normal >=59 mL/min/1. 73 m2 Result Comment: Chronic kidn ey disease could be indicated at eGFR's of less than 60 mL/min/1.73m2. Kidney failure is indicated at less than 15 mL/min/1.73m2. Performed By: #### [id number], [id number], [id number], [id number], [id number], [id number] #### [facility] [address] [place] [address] BNP Collected: 05/27/2023 1:50 PM Status: F Source: [facility] REPOSITORY TYPE CODE TESTS RESULT OUT OF RANGE REFERENCE UNITS LAB 77358-9([facility]) NATRIURETIC PEPTIDE.B:MCNC: PT:SER/PLAS:QN: 81 High 5-80 pg/mL LAB CD:[id number]([facility]) Int Ctr BNP Pass Normal Performed By: #### [id number], [id number], [id number], [id number], [id number], [id number], [id number] #### [facility] [address] [place] [address] TROPONIN 0 HR. Collected: 1:50 PM Status: F Source: [facility] REPOSITORY TYPE CODE TESTS RESULT OUT OF RANGE REFERENCE UNITS LAB 81943-2([facility]) TROPONIN I.CARDIAC:MC NC:PT:SER/PL :QN: 6.90 Low 15.90-38.40 pg/mL Result Comment: The 95% CI ( Confidence Interval) PPV (Positive Predictive Value) for myocardial infarction in females is 38 pg/mL, in males 51 pg/mL. The results should be used in conjunction with clinical conditions of myocardial infarction. (Access High Sensitivity Troponin I Instructions For Use, Sebastian Alma, March 2018) Performed By: #### [id number], [id number], [id number], [id number], [id number], [id number], [id number] #### [facility] [address] [place] [address] C BLOOD CHARCOAL Observed: 05/27/2023 1:50 PM Status: F Source: [facility] REPOSITORY Microbiology PROCEDURE: Blood Culture Charcoal [R1] SOURCE: Blood [...] Locations R1: This test was performed at: [facility], [address] [place] [address], [address]- , [place], Performed By: #### [id number] #### [facility] [address] [place] [id number] ED NOTE-PHYSICIAN Observed: 05/27/2023 1:48 PM Status: F Source: [facility] REPOSITORY Basic Information Time Seen: Perla CORTEZBarney 05/27/2023 13:25 Chief Complaint Pt has had [...] and Complexity of Problems Differential Diagnosis: [] [facility] Data External documents reviewed: [] My [...] Therapy PT & PTT Rapid COVID Antigen (MC) Saline Lock Insert Troponin 0 Hr. Troponin 3 Hr. Troponin 6 Hr. Troponin 9 Hr. XR Chest Single View Disposition Plan Discharge Prescription List Prescriptions No active prescription medications Follow-up No qualifying data available Attestation Patient seen and evaluated by the physician recruitment assistant. Attending physician was present in the emergency department and supervised care. This visit was performed by both the physician and an APC. I performed all aspects of the MDM as documented. This report was transcribed using voice recognition software. Every effort was made to ensure accuracy, however, inadvertently computerized technical operations vice president mistakes may be present. Appropriate healthcare PPE [...] External beam radiotherapy (2007), Colonoscopy, Tonsillectomy. Medications Inpatient albuterol-ipratropium Inh Ally 3 mL UD, 3 mL, Inhalation, Once Home Abilify 10 mg Tab, Oral, Daily aspirin 81 mg oral tablet, Oral, Daily CeleBREX 200 mg Cap, Oral, BID divalproex sodium 500 mg ER Tab, Oral, Daily Lyrica 100 mg Cap, 100 mg= 1 cap(s), Oral, TID Pantoprazole [address] Tab, Oral, Daily pravastatin 80 mg Tab, Oral, Daily Requip 1 mg Tab, Oral, TID sildenafil 50 mg Tab, 50 mg= 1 tab(s), Oral, As Directed, 3 refills tizanidine 4 mg oral capsule, Oral, TID Trintellix 20 mg oral tablet, Oral, Daily Allergies No Known Medication Allergies Social History Alcohol - Denies Alcohol Use, 02/13/2020 Tobacco quit 30 years ago Tobacco Use:. Never Smokeless Tobacco Use:. Cigarettes, Stopped age 28 Years. Household tobacco concerns: No. Yes, 03/17/2023 Family History Cancer: Mother. Diabetes mellitus type 2: Mother. Primary malignant neoplasm of female breast: Sister. Lab Results WBC: 8.9 E9/L (05/27/23 13:50:00) [...] Lymph Auto: 2.1 % Low (05/27/23 13:50:00) [place] Auto: 4.6 % (05/27/23 13:50:00) Eos Auto: 0.1 % (05/27/23 13:50:00) Basophil Auto: 0 % (05/27/23 13:50:00) Neutro Absolute: 8.3 E9/L High (05/27/23 13:50:00) Lymph Absolute: 0.2 E9/L Low (05/27/23 13:50:00) [place] Absolute: 0.4 E9/L (05/27/23 13:50:00) Eos Absolute: [...] Lvl: 8.4 mg/dL Low (05/27/23 13:50:00) Troponin: 6.9 pg/mL Low (05/27/23:50:00) BNP: 81 pg/mL High (05/27/23 13:50:00) Influenzae [...] O2 Sat Art: 98.8 % (05/27/23 13:39:00) forest economics professor+ Art: 138 mmol/L (05/27/23 13:39:00) cK+ Art: 4.3 mmol/L (05/27/23 13:39:00) cCa2+ Art: 4.56 mg/dL (05/27/23 13:39:00) cCl- Art: 95 mmol/L Low (05/27/23 13:39:00) cGlu Art: 100 mg/dL High (05/27/23 13:39:00) cLac Art: 0.9 mmol/L (05/27/23 13:39:00) AaDO2 Art: 35.4 mmHg High (05/27/23 13:39:00) a/A Ratio Art: 72.7 % (05/27/23 13:39:00) Sample Type: Arterial Draw (05/27/23 13:39:00) Sample Site: R Radial (05/27/23 13:39:00) FIO2 B.0 (05/27/23 13:39:00) Allens Test: Not Applicable (05/27/23 13:39:00) Drawn by: trs (05/27/23 13:39:00) Diagnostic Results XR Chest Single View 05/27/23 14:45:38 NEGATIVE: No infiltrate, mass or other acute cardiopulmonary abnormality Read By: Barney Duncan PA-C 05/27/23 15:06:35 IMPRESSION: NO RADIOGRAPHIC EVIDENCE OF ACUTE INTRATHORACIC PROCESS. EXAM: XR Chest Single View History: Cough. Technique: Portable AP view of the chest. Comparison: None available Findings: The cardiomediastinal silhouette is within normal limits. No pneumothorax, pleural effusion, or consolidation. No acute osseous abnormality. Ordering Provider: Barney Duncan Signed By: Attila Pink DO 05/27/23 14:40:12 Radiation Dose: Ka,r in mGy = na DAP = na Signed By: Attila Pink DO EKG Results EC05/27/23: SINUS RHYTHM WITH OCCASIONAL SUPRAVENTRICULAR PREMATURE COMPLEXES NO STEMI NORMAL QTC ABNORMAL ECG Signed By: Samy Benjamin DO 05/27/2023 14:46:29 Result Comment: Electronical ly Signed By: Barney Duncan PA-C\.br\Date and Time Signed: 05/27/23 16:21 EDT\.br\Electronically Co-Signed By: Samy Benjamin DO\.br\Date and Time Co-Signed: 05/27/23 17:04 EDT RAPID COVID ANTIGEN ([facility]) Collected: 1 1:47 PM Status: F Source: [facility] REPOSITORY TYPE CODE TESTS RESULT OUT OF RANGE REFERENCE UNITS LAB 14638-6([facility] ) SARS CORONAVIRUS+SA RS CORONAVIRUS 2 AG:PRTHR:PT:RE SPIRATORY SYSTEM SPECIMEN:ORD:I A.RAPID Detected Abnormal Not Detected Result Comment: The Anctu Verit or? System for Rapid Detection of SARS-CoV-2 is [...] 564(b)(1) of the Act, 21 U.S.C. ? 360bbb- 3(b)(1), unless the authorization is terminated or revoked sooner. LAB CD:[id number] ([facility]) Rapid COV Int POS Ctl Pass Normal LAB CD:[id number] ([facility]) Rapid COV Int NEG Ctl Pass Normal Performed By: #### [id number], [id number] #### [facility] [address] [place] [address] INFLUENZA A&B AG Collected: 1:47 PM Status: F Source: [facility] REPOSITORY TYPE CODE TESTS RESULT OUT OF RANGE REFERENCE UNITS LAB 12892230([facility] ) Influenzae A Ag NEGATIVE Normal Negative LAB 18191987([facility] ) Influenzae B Ag NEGATIVE Normal Negative Result Comment: Test sensiti vity and specificity vary for age group, specimen type, antigen types, and prevalence of disease. Test results must be evaluated in conjunction with other clinical data available to the physician. Individuals who received nasally administered Influenza A vaccine may have positive test results up to 3 days after vaccination. Performed By: #### [id number], [id number] #### [facility] [address] [place] [address] BLOOD GAS ART, WITH LYTES, GLUC, LACT Collected: 05/27/2023 1:39 PM Status: F Source: [facility] REPOSITORY TYPE CODE TESTS RESULT OUT OF RANGE REFERENCE UNITS LAB 50512041(LOINC ) pH Arterial 7.404 Normal 7.350-7.450 LAB 54937644(LOINC ) P CO2 Arterial 58.0 High 35.0-45.0 mmHg LAB 41066807(LOINC ) P O2 Arterial 94.5 Normal 80.0-100.0 mmHg LAB 52830828(LOINC ) Base Excess Arterial 9.7 Normal >=2.8 mmol/L LAB 87130190(LOINC ) HCO3 Arterial 33.4 High 22.0-26.0 mmol/L LAB 04095473(LOINC ) Total Hgb Art 11.7 Low 12.0-17.0 gm/dL LAB 39194868(LOINC ) FO2Hb Art 97.0 Normal 93.0-100.0 % LAB 80281607(LOINC ) FCOHb Art 1.6 Normal 1.5-4.9 % Result Comment: Reference ra nge Nonsmoker <1.5% Smoker <5.0% Heavy Smoker <9.0% LAB 20708777([facility] ) FMetHb Art 0.3 Normal 0.0-1.9 % LAB 52506162([facility] ) O2 Sat Art 98.8 Normal 95.0-100.0 % LAB 09360229([facility] ) forest economics professor+ Art 138.0 Normal 135.0-145.0 mmol/L LAB 15236653([facility] ) cK+ Art 4.3 Normal 3.5-5.3 mmol/L LAB 07816864([facility] ) cCa2+ Art 4.56 Normal 4.40-5.30 mg/dL LAB 72979549([facility] ) cCl- Art 95.0 Low 101.0-111.0 mmol/L LAB 29907521([facility] ) cGlu Art 100 High 55-99 mg/dL LAB 32709879([facility] ) cLac Art .9 Normal .5-2.2 mmol/L LAB 99927595([facility] ) AaDO2 Art 35.4 High 5.0-15.0 mmHg LAB 25873919([facility] ) Sample Type Arterial Draw Normal LAB 71172803([facility] ) a/A Ratio Art 72.70 Normal >=0.80 % LAB 34286623([facility] ) Sample Site R Radial Normal LAB 11134672([facility] ) FIO2 BG 21.0 Unknown LAB 70402640([facility] ) Allens Test Not Applicable Normal LAB CD:[id number]([facility]) Drawn by trs Unknown Performed By: #### [id number] #### [facility] [address] [place] [address] PRE-ARRIVAL NOTE Observed: 05/27/2023 1:37 PM Status: F Source: [facility] REPOSITORY Pre-Arrival Summary Name: , kathleen Current Date: 05/27/2023 13:37:03 EDT Gender: Male Date of : Age: 63 Pre-Arrival Type: EMS ETA: 05/27/2023 13:34:00 EDT Primary Care Physician: Presenting Problem: weakness, dizziness Pre-Arrival User: Tiffanie Rocha RN Referring Source: Location: Completion Date/Time: 05/27/2023 13:05:00 [facility] Emergency Department Pre-Hospital Report Form Vital Signs: 99/65 80 18 99 Pre-Hospital Report: weakness, dizziness, hx pancan. Treatment in Route: Response to Treatment: Misc. Issues: PSA TOTAL Collected: 12:32 PM Status: F Source: [facility] REPOSITORY TYPE CODE TESTS RESULT OUT OF RANGE REFERENCE UNITS LAB 2857-1([facility]) PROSTATE SPECIFIC AG:MCNC:PT:S ER/PLAS:QN: <0.1 Normal 0.1-3.5 ng/mL Result Comment: The concentr ation of PSA determined by different manufacturers can vary due to differences in assay methods and reagent specificity. Values obtained from different assay methods cannot be used interchangeably. The methodology used for this result was chemiluminescence using [employer] Hybritech PSA reagent. Performed By: #### [id number] #### [facility] [address] [place] [address] CONSENT FOR TREATMENT Observed: 03/17/20 12:21 PM Status: F Source: [facility] REPOSITORY [id number]#1.00CD:127 UROLOGY OFFICE/CLINIC NOTE Observed: 11:23 AM Status: F Source: [facility] REPOSITORY Chief Complaint 3 month follow up w/PSA [...] Kael 7 (3+4) x 3 cores and Surprise 6 (3+3) x 5 cores. S/p open radical prostatectomy (nerve sparing) by DLS and PRW 05/09/20 - pT2, pNX Prostate adenocarcinoma, grade group 2, tertiary pattern 5 <5%. Neg margins. PSA: 05/06/21 - 0.05 11/04/21 - 0.05 11/30/22 - <0.13 03/12/23 - <0.13 Discussed potential slight elevation is PSA, discussed implications. Advised pt to go to [facility] for blood work for a more sensitive detection to determine if his PSA is rising at all due to [place] changing their lab cutoffs (<0.13 is the [...] product 7-8 yrs ago. No hx of AR IAN 0 Pt was to start taking [...] Information Brian LUGO, Kayla Dubose, URL, URO In 1 year Additional Instructions: w/PSA Patient Education Kegel Rakesh Francis, Yvette Lira, personally scribed for Dr. Torres on 03/17/2023 [...] Daily Requip 1 mg Tab, Oral, TID sildenafil 50 mg Tab, 50 mg= 1 tab(s), Oral, As Directed, 3 refills tizanidine 4 mg oral capsule, Oral, TID Trintellix 20 mg oral tablet, Oral, Daily Allergies No Known Medication Allergies Social History Alcohol - Denies Alcohol Use, 02/13/2020 Tobacco quit 30 years ago Tobacco Use:. Never Smokeless Tobacco Use:. Cigarettes, Stopped age 28 Years. Household tobacco concerns: No. Yes, 03/17/2023 Family History Cancer: Mother. Diabetes mellitus type 2: Mother. Primary malignant neoplasm of female breast: Sister. Immunizations Vaccine Date Status Comments influenza virus vaccine, inactivated 07/14/2022 Recorded SARS-CoV-2 (COVID-19) mRNAMUL.ORD![id number] 07/14/2022 Recorded SARS-CoV-2 (COVID-19) mRNA-1273 vaccine 07/15/2021 Recorded SARS-CoV-2 (COVID-19) mRNA-1273 vaccine 07/05/2021 Recorded booster SARS-CoV-2 (COVID-19) Ad26 vaccine 10/07/2020 Recorded influenza virus vaccine, inactivated 05/10/2020 Recorded influenza virus vaccine, inactivated 05/15/2019 Recorded influenza virus vaccine, inactivated 08/12/2018 Recorded influenza, unspecified formulation 05/21/2017 Recorded diphtheria/pertussis, acel/tetanus adult 05/21/2016 Recorded influenza virus vaccine, inactivated 05/24/2015 Recorded Lab Results Ambulatory Point of Care Results Bilirubin Urine Dipstick: Negative (03/17/23 10:35:00) Blood Urine Dipstick: Negative (03/17/23 10:35:00) Glucose Urine Dipstick: Negative (03/17/23 10:35:00) Ketones Urine Dipstick: Negative (03/17/23 10:35:00) Leukocytes Urine Dipstick: Negative (03/17/23 10:35:00) Nitrite Urine Dipstick: Negative (03/17/23 10:35:00) Protein Urine Dipstick: Trace (03/17/23 10:35:00) Specific [place] Urine Dipstick: 1.020 (03/17/23 10:35:00) Urine Appearance Urine Dipstick: Clear (03/17/23 10:35:00) Urine Color Urine Dipstick: Yellow (03/17/23 10:35:00) Urobilinogen Urine Dipstick: >=8 EU/dl (03/17/23 10:35:00) pH Urine Dipstick: 7 (03/17/23 10:35:00) Result Comment: Electronical ly Signed By: Kayla Torres MD\.br\Date and Time Signed: 03/17/23 21:48 EDT\.br\Electronically Co-Signed By: Yvette Lira\.br\Date and Time Co-Signed: 03/17/23 11:24 EDT PATIENT EDUCATION Observed: 03/17/2023 11:23 AM Status: F Source: [facility] REPOSITORY Obstetrics and Gynecology Kegel Exercises Kegel exercises [...] provider. Document Revised: 11/27/2021 Document Reviewed: 11/27/2021 [employer] Patient Education ? 2022 [employer] SCREENS Observed: 03/16/2023 2:16 PM Status: F Source: [facility] REPOSITORY [id number]#1.00CD:127 SCREENS Observed: 03/16/2023 2:16 PM Status: F Source: [facility] REPOSITORY [id number]#[id number]:127 LAB REPORTS Observed: 03/12/2023 2:16 PM Status: F Source: [facility] REPOSITORY [id number]#1.00CD:127 AMBULATORY CLINICAL SUMMARY Observed: 02/13/2020 3:09 PM Status: F Source: [facility] REPOSITORY {[id number]}CD:749237 RAD - ULTRASOUND REPORT Observed: 2019 2:16 PM Status: F Source: [facility] REPOSITORY [id number]#1.00CD:127 ALLERGIES DATE TYPE / CODE NAME / CODE REACTION SEVERITY SOURCE Miscellaneous Allergy/293111522(SNOMED CT) No Known Allergies [facility] DR/918922627(SNOMED CT) No Known Medication Allergies [facility] ENCOUNTERS ADMIT/DISCHARGE ACCOUNT NUMBER ADMITTING ENCOUNTER CLASS LOCATION SOURCE 12/07/2023/12/07/19 [id number] Ambulatory Building:NO MS N NEURO [facility] EPIC 11/17/2023/11/17/19 24 [id number] Ambulatory [place] ann[place]oo m: Exam 2 [facility] 11/15/2023 [id number] Ambulatory [place]:[facility] 11/02/2023 [id number] [facility] [place] 05/27/2023/05/30/20 23 [id number] Jossue Spivey Inpatient Encounter [facility]MCBuildin NRoom: [id number]: 01 [facility] 03/17/2023/03/17/20 23 [id number] Kayla Torres Ambulatory FTBuildin g:FT LAB [facility] 03/17/2023/03/17/20 23 [id number] Ambulatory EU [place]: Exam 1 [facility] 01/22/2020 [id number] Ambulatory EU [place]:EU [facility] PAYERS ENCOUNTER GUARANTOR PAYER SUBSCRIBER SOURCE 12/07/2023 YENI HODGES: [place] [address]Qqu: () [facility]: [id number] Date:2022-08-02 VALE CARDENASB: [id number] [place] [address] [facility] EPIC 12/07/2023 Secondary Insurance:HUMANA MEDICARE ADVANTAGEPolicy Number: [id number] Date:2022-12-31 YENI BRYANTB: [id number] [place] [address] [facility] 11/17/2023 YENI BRYANTB: [facility] [facility] [address] [address] NTel: ~~(4 1 (HP) Primary Insurance:AnthemPolicy Number: [id number] Date:7194-49-95TX [address] [place] [id number]: VALE L [facility] 11/17/2023 Secondary Insurance:HUMANAPolicy Number: [id number] Date:0371-90-34WI [address] [place] [address]KR: YENI A [facility] 11/02/2023 YENIKIRTI CONNORDOB: [facility] [address] NTel: ~~(4 1 (HP) Primary Insurance:HUMANAPolicy Number: [id number] Date:[id number] [address]RN: YENI A [facility] 11/02/2023 Secondary Insurance:AnthemPolicy Number: [id number] Date:0756-20-42NM [address] [place] [id number]: [facility] Manuela [facility] 05/27/2023 YENI CONNORDOB: [facility] [address] NTel: ~~(4 1 (HP) Primary Insurance:HUMANAPolicy Number: [id number] Date:9353-86-16UX [address] [place] [id number]: [facility] Swapnil [facility] 05/27/2023 Secondary Insurance:AnthemPolicy Number: [id number] Date:1917-87-89[id number] [place] [id number]: VALE L [facility] 03/17/2023 YENI BRYANTB: [facility] [address] NTel: ~~(4 1 (HP) Primary Insurance:HUMANAPolicy Number: [id number] Date:4817-60-44TF [address] [place] [address]QR: [facility] Swapnil [facility] 03/17/2023 Secondary Insurance:AnthemPolicy Number: [id number] Date:4370-20-43[id number] [place] [id number]: [facility] Manuela [facility] 03/17/2023 YENIKIRTI CNONORDOB: [facility] [address] NTel: ~~(4 1 (HP) Primary Insurance:AnthemPolicy Number: [id number] Date:9926-89-66[address] [place] [address]BP: [facility] 03/17/2023 Secondary Insurance:MEDICAREPoli cy Number: [id number] Date:0293-55-63[address] [address], [place] [address]MK: [facility]
== END 2023-12-10 13:47 | disposition home or self-care (01) ==
LOC: PST 13:46
PROVIDERS: PCP Internal Medicine; Visit Provider Surgery
DX: Z01.818 Encounter for other preprocedural examination (principal); R63.4 Abnormal weight loss; K21.9 Gastro-esophageal reflux disease without esophagitis

== ENCOUNTER 2024-01-17 10:38 | Outpatient (OUT) | payer BC, MEDICARE, SELFPAY ==
[2024-01-17 11:31] LABS: Hematocrit 38.8 % (42.0-54.0); Hemoglobin 12.6 g/dL (14.0-18.0); Mean Corpuscular HGB Conc 32.5 g/dL (29.9-35.2); Mean Corpuscular Hemoglobin 28.8 pg (25.9-34.0); Mean Corpuscular Volume 88.8 fL (80.0-94.0); Platelet Count 135 10^3/uL (150-450); Red Blood Count 4.37 10^6/uL (4.70-6.10); Red Cell Distribution Width 12.9 % (11.0-15.0); White Blood Count 8.6 10^3/uL (4.0-11.0)
[2024-01-17 11:47] LABS: Estimated Average Glucose 103 mg/dL; Glycohemoglobin A1C 5.2 % (4.5-6.2)
[2024-01-17 11:52] LABS: Alanine Aminotransferase 17 U/L (16-63); Albumin Level 3.4 g/dL (3.4-5.0); Alkaline Phosphatase 86 U/L (46-116); Anion Gap 8.3; Aspartate Amino Transferase 9 U/L (15-37); BUN Creatinine Ratio 22.1; Bilirubin Total 0.7 mg/dL (0.2-1.0); Calcium 9.5 mg/dL (8.5-10.1); Carbon Dioxide 34.2 mmol/L (21.0-32.0); Chloride 103 mmol/L (98-107); Chol HDL Ratio 2.3; Cholesterol 175 mg/dL (<=200); Estimated GFR (African America >60 (>=60); Estimated GFR (Non-African Ame >60 (>=60); Globulin 3.3 g/dL; Glucose 80 mg/dL (74-106); HDL Cholesterol 77 mg/dL (40-60); Potassium 4.5 mmol/L (3.5-5.1); Sodium 141 mmol/L (136-145); Thyroid Stimulating Hormone 2.798 uIU/mL (0.358-3.740); Total Protein 6.7 g/dL (6.4-8.2); Triglycerides 44 mg/dL (<=150); VLDL CHOLESTEROL 8.8 mg/dL
[2024-01-17 12:10] LABS: Prostate Specific Antigen Scrn <0.13 ng/mL (<=4.00)
[2024-01-17 12:13] LABS: Microalbumin Urine Random 1.5 mg/dL (<=30.0)
[2024-01-17 15:27] LABS: Lymphocytes Absolute Manual 0.43 10^3/uL (1.20-3.80); Monocytes Absolute Manual 0.51 10^3/uL (0.30-0.80); Segmented Neut Absolute Manual 7.65 10^3/uL (1.4-6.5)
== END 2024-01-17 10:39 | disposition home or self-care (01) ==
LOC: LAB 10:41
PROVIDERS: PCP Internal Medicine; Visit Provider Internal Medicine
DX: Z00.00 Encounter for general adult medical examination without abnormal findings (principal)
CPT/HCPCS: 36415; 80053; 80061; 82043; 83036; 84443; 85007; 85027; G0103

== ENCOUNTER 2024-01-26 08:09 | Day surgery (SDC) | payer BC, MEDICARE, SELFPAY ==
--- NOTE | 2024-01-26 | OP_ITS ---
OPERATION DATE: 01/26/2024 PREOPERATIVE DIAGNOSIS: Weight loss, gastroesophageal reflux disease. POSTOPERATIVE DIAGNOSIS: Normal EGD and moderate sigmoid diverticulosis. PROCEDURE: EGD and colonoscopy to cecum. SURGEON: Giorgio Lang M.D. ANESTHESIA: Monitored anesthesia care. ESTIMATED BLOOD LOSS: Zero. INDICATIONS AND CONSENT: Patient is a 64-year-old male with recent significant unintentional weight loss, as well as gastroesophageal reflux disease. No dysphagia or early satiety. Indications, risks, benefits, alternatives of proceeding with EGD and colonoscopy were explained extensively to the patient, including the risks of bleeding, aspiration, esophageal/gastric/duodenal or colonic perforation or anesthetic complications. All of his questions were answered. Informed consent was obtained. PROCEDURE: Patient brought to the operating room, placed in the left lateral decubitus position. Monitored anesthesia care was provided. Bite block was placed in the patient?s mouth. Scope was inserted into the oropharynx. Under direct visualization, it was advanced into the esophagus, past the cricopharyngeus, down to the stomach. The stomach was insufflated with air. The pylorus was traversed down to the descending portion of the duodenum. There was no evidence of duodenitis or ulceration. There was no scarring within the pyloric channel. Scope was pulled back into the stomach and retroflexed. There was no significant hiatal hernia. No gastric mucosal abnormalities. The GE junction was noted at 40 cm. There was no distal esophagitis or Dupree?s changes. Remainder of the esophagus was unremarkable. The scope was then withdrawn. Patient was then positioned for colonoscopy. Rectal exam was performed, which showed no masses or blood. The scope was then inserted into the anal canal. Under direct visualization, it was advanced. With the aid of abdominal compression, it was advanced to the cecum where cecal markings were clearly identified. Upon withdrawal of the scope, mucosal surfaces were carefully examined. There were no mass lesions or polyps. No inflammatory changes or ulcerations. There was moderate sigmoid diverticulosis without inflammatory changes or scarring. The scope was retroflexed in the anal canal. There were noted to be some prominent rectal veins. No significant hemorrhoidal disease. The scope was then withdrawn. The patient tolerated procedure well, was sent to recovery room in good condition. Follow up colonoscopy should be in 10 years. CC: Patient?s family physician FATEMEH
[2024-01-26 08:23] VITALS: BP 137/73; PULSE 58; TEMP 36.3; O2SAT 98; BMI 21.3
--- OUTSIDE RECORDS SUMMARY | 2024-01-26 08:32 | XMS_ITS | CCD ---
Author Organization [facility] Care Team Providers Care Pharmacy Technology Instructor Name Role Phone Sammy Aguilera Unavailable SAMMY AGUILERA Primary Care Physician KAYLA MCMAHON Attending Papi TORRES .KAYLA Admitting Unavailable SAMMY AGUILERA Primary Care Unavailable SUSAN RUEDA Consulting Unavailable SAMMY AGUILERA Attending Unavailable SAMMY AGUILERA Consulting Unavailable SAMMY AGUILERA Primary Care Unavailable SAMMY AGUILERA Admitting Unavailable BELKYS RANDALL Attending Unavailable Kayla Torres Attending Unavailable Kayla Torres Attending Unavailable Kayla Torres Attending Unavailable Kayla Torres Admitting Unavailable Jossue Spivey Attending Unavailable Jossue Spivey Admitting Unavailable SAMMY AGUILERA Referring Unavailable Giorgio GONZALES Attending Unavailable Allergies Allergy Classification Reported Allergen(s) Allergy Type Date of Onset Reaction(s) Facility (1 source) patient allergy list reviewed by nurse or physicia Propensity to adverse reactions Comment:Done [employer] Other (1 source) Allergies Reconciled Propensity to adverse reactions Unknown [employer] Other (1 source) No Known Medication Allergies; Translations: [No Known Medication Allergies] Propensity to adverse reactions (disorder) [facility] Repository Medications Current Medications Medication Drug Class(es) Dates Sig (Normalized) Sig (Original) amLODIPine 2.5 mg / benazepril hydrochloride 10 mg oral capsule (20 sources) Dihydropyridine Calcium Channel Matilde, Angiotensin Converting Enzyme Inhibitor Start: 11-06-2023 take 1 capsule by mouth once daily Amlodipine-Benaz epril Active 1 CAP PO Daily November 06, 2023 12:00am Start: 07-01-2023 amLODIPine Bes y-Benazepril HCl 2.5-10 MG as directed Orally daily for 30 days Jun, Active Start: 03-31-2023 take 1 capsule by [facility] every twenty-four hours Lotrel 10-20 MG 1 capsule Orally daily for 90 days Mar, Active take 1 capsule by [facility] every twenty-four hours Lotrel 10-40 MG 1 capsule Orally daily Active ARIPiprazole 10 mg oral tablet (5 sources) Atypical Antipsychotic Start: 11-17-2023 take 1 tablet by mouth once daily Abilify 10 mg Tab 10 mg = 1 tab(s), Oral, Daily, Refills(s) 0 Start Date: 11/17/23 Status: Ordered Start: 05-13-2021 take 1 mg by mouth once daily Abilify 10 mg Tab mg tab(s), Oral, Daily, Refills(s) 0 Start Date: 05/13/21 Status: Ordered Aspir-81 81 MG (20 sources) [facility] Aspir-81 81 MG 1 tablet Orally Once a day Active take 1 tablet by mouth once kavon y Aspir-81 81 MG 1 tablet Orally Once a day *please review for potential _update for e-prescription and drug interaction check* Active aspirin 81 mg delayed release oral tablet (6 sources) Platelet Aggregation Inhibitor, Nonsteroidal Anti-inflammatory Drug Start: 11-06-2023 take 81 mg by mouth once daily Aspirin Active 81 MG PO Daily November 06, 2023 12:00am Start: 02-13-2020 take 1 mg by mouth once daily aspirin 81 mg oral tablet mg tab(s), Oral, Daily, Refills(s) 0 Start Date: 02/13/20 Status: Ordered 168 hr buprenorphine 0.02 mg/hr transdermal system (20 sources) Partial Opioid Agonist Start: 11-12-2023 buprenorphine 20 mcg /hr transdermal film, extended release 1 patch(es), TransDermal, qWeek, Refill(s) 0 Start Date: 11/12/23 Status: Ordered Start: 11-12-2023 Belbuca 150 mc g buccal film 150 mcg = 1 EA, Buccal, q12hr, Refills(s) 0 Start Date: 11/12/23 Status: Ordered Start: 11-06-2023 Buprenorphine Hcl (Belbuca) 150 mcg film Active 150 MCG BUCCAL Every 12 hours November 06, 2023 12:00am Start: 09-16-2023 End: 10-08-2023 apply 1 dose transdermal route every week Buprenorphine Active 1 PATCH TRANSDERML Q7D 4 October 08, 2023 2:35pm Start: 08-10-2023 Buprenorphine 20 MCG/HR 1 patch [...] capsule (20 sources) Nonsteroidal Anti-inflammatory Drug Start: 11-06-2023 take 200 mg by mouth once daily Celecoxib Active 200 MG PO Daily November 06, 2023 12:00am Start: 02-13-2020 take 1 mg by mouth twice daily CeleBREX 200 mg Cap mg cap(s), Oral, BID, Refills(s) 0 Start Date: 02/13/20 Status: Ordered take 1 capsule by [facility] every twenty-four hours CeleBREX 200 MG 1 capsule with food Orally Once a day Active dexamethasone 4 mg oral tablet (1 source) Corticosteroid Start: 05-30-2023 take 1 tablet by mouth once daily dexamethasone 4 mg Tab 4 mg = 1 tab(s), Oral, Daily, # 6 tab(s), Refills(s) 0, Pharmacy: [facility]/pharmacy #[id number], 182, cm, 05/27/23 13:18:00 EDT, Height/Length Dosing, 68.1, kg, 05/27/23 13:18:00 EDT, Weight Dosing Start Date: 05/30/23 Status: Ordered DuoDERM CGF Spots Extra Thin - (15 sources) Start: 03-31-2023 DuoDERM CGF Spots Extra Thin - as directed Externally qd for 30 days Mar, Active methylphenidate hydrochloride 20 mg oral tablet (20 sources) Central Nervous System Stimulant Start: 11-06-2023 take 30 mg by mouth once daily Methylphenidate Hcl Active 30 MG PO Daily November 06, 2023 12:00am Start: 01-17-2020 take 1.5 tablets by mouth every twenty-four hours Ritalin 20 MG 1.5 tablet Orally daily for [address] Aguilera Dec, Active omeprazole 20 mg delayed release oral capsule (2 sources) Proton Pump Inhibitor Start: 10-18-2023 End: 10-18-2023 take 20 mg by mouth once daily Omeprazole Active 20 MG PO Daily October 18, 2023 1:35pm pantoprazole 40 mg delayed release oral tablet (20 sources) Proton Pump Inhibitor Start: 02-13-2020 take 40 mg by mouth once daily Pantoprazole Active 40 MG PO Daily November 06, 2023 12:00am pravastatin sodium 80 mg oral tablet (20 sources) HMG-CoA Reductase Inhibitor Start: 02-13-2020 take 80 mg by mouth once daily in the evening Pravastatin Active 80 MG PO Every evening November 06, 2023 12:00am pregabalin 150 mg oral capsule (20 sources) Start: 11-12-2023 take 1 capsule by mouth three times daily Lyrica 150 mg Cap 150 mg = 1 cap(s), Oral, TID, Refills(s) 0 Start Date: 11/12/23 Status: Ordered Start: 11-06-2023 take 150 mg by mouth three times daily Pregabalin Active 150 MG PO Three times daily November 06, 2023 12:00am Start: 07-27-2023 take 1 capsule by mo ut[facility] every eight hours Lyrica 150 MG 1 capsule Orally 3 times a day for 90 days Jul, Active Start: 10-30-2022 take 1 capsule by mo ut[facility] every eight hours Lyrica 150 MG 1 capsule Orally 3 times a day Sep, Active Start: 02-13-2020 take 1 capsule by mo uth three times daily Lyrica 100 mg Cap 100 mg = 1 cap(s), Oral, TID, Refills(s) 0 Start Date: 02/13/20 Status: Ordered take 1 capsule by mo uth every eight hours Lyrica 150 MG 1 capsule Orally 3 times a day Active rOPINIRole 1 mg oral tablet (20 sources) Nonergot Dopamine Agonist Start: 11-06-2023 take 1 mg by mouth once daily Ropinirole Active 1 MG PO Daily November 06, 2023 12:00am Start: 02-13-2020 take 1 tablet by bernadette th three times daily Requip 1 mg Tab mg tab(s), Oral, TID, Refills(s) 0 Start Date: 02/13/20 Status: Ordered take 1 tablet by bernadette th once daily rOPINIRole HCl 1 MG TAKE 1 TABLET [...] products., # 30 tab(s), Refills(s) 3, Pharmacy: [facility]/pharmacy #[id number], 183, cm, 12/02/22 8:18:00 EDT, Height/Length Dosi... Start Date: 12/02/22 Status: Ordered tiZANidine 4 mg oral tablet (20 sources) Central alpha-2 Adrenergic Agonist Start: 11-06-2023 Tizanidine Active 4 MG PO November 06, 2023 12:00am 1 and 1/2 tablet as needed Orally Three times a day Start: 02-13-2020 take 1 mg by mouth t hree times daily tizanidine 4 mg oral capsule mg cap(s), Oral, TID, Refills(s) 0 Start Date: 02/13/20 Status: Ordered tiZANidine HCl 4 MG 1 and 1/2 tablet as needed Orally Three times a day neurologist Active traZODone hydrochloride 100 mg oral tablet (20 sources) Serotonin Reuptake Inhibitor Start: 11-06-2023 take 3 tablets by mouth once daily at bedtime Trazodone Active 300 MG PO Daily at bedtime November 06, 2023 12:00am FreeTextSig: take 3 tablet Orally at bedtime; Note: Source Status: Taking; Provider: Willy Christianson ( ) Start: 05-27-2023 take 3 tablets by mo ut once daily at bedtime traZODONE 100 mg Tab 300 mg = 3 tab(s), Oral, Once a day (at bedtime), Refills(s) 0 Start Date: 05/27/23 Status: Ordered Start: 05-27-2023 take 1 tablet by bernadette once daily at bedtime traZODONE 100 mg Tab 100 mg = 1 tab(s), Oral, Once a day (at bedtime), Refills(s) 0 Start Date: 05/27/23 Status: Ordered 24 hr divalproex sodium 500 mg extended release oral tablet (20 sources) Mood Stabilizer, Anti-epileptic Agent Start: 11-06-2023 take 1000 mg by mouth once daily Divalproex Active 1000 MG PO Daily November 06, 2023 12:00am Start: 02-13-2020 take 2 tablets by mo uth once daily divalproex sodium 500 mg ER Tab 1,000 mg = 2 tab(s), Oral, Daily, Refills(s) 0 Start Date: 02/13/20 Status: Ordered Start: 02-13-2020 take 1 mg by mouth once daily divalproex sodium 500 mg ER Tab mg tab(s), Oral, Daily, Refills(s) 0 Start Date: 02/13/20 Status: Ordered vortioxetine 20 mg oral tablet (20 sources) Start: 02-13-2020 take 20 mg by mouth once daily Vortioxetine Active 20 MG PO Daily November 06, 2023 12:00am Problems Active Problems Problem Classification Problem Date Documented Date Episodic/Chronic Bacterial infection; unspecified site (1 source) Bacteremia; Translations: [Bacteremia] Onset: 05-29-2023 Episodic Cancer of head and neck (5 sources) Malignant tumor of tonsillar pillar; 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)] Onset: 07-02-2008 11-06-2023 Chronic Cancer of head and neck (9 sources) History of malignant neoplasm of tonsil; Translations: [Personal history of malignant neoplasm of other sites of lip, oral cavity, and pharynx] Episodic Cancer of prostate (20 sources) Malignant tumor of prostate; Translations: [Malignant neoplasm of prostate] Onset: 11-30-2022 Chronic Cancer of prostate (7 sources) Personal history of malignant neoplasm of prostate; Translations: [History of malignant neoplasm of prostate] Onset: 12-02-2022 Episodic Cancer; other and unspecified primary (20 sources) History of squamous cell carcinoma; Translations: [Personal history of malignant neoplasm of other organs and systems] Episodic Cancer; other and unspecified primary (3 sources) Personal history of malignant neoplasm of other organs and systems Episodic Cancer; other and unspecified primary (1 source) H/O: malignant neoplasm; Translations: [Personal history of malignant neoplasm of other organs and systems] Episodic Cardiac dysrhythmias (1 source) Sinus bradycardia; Translations: [Bradycardia, unspecified] Onset: 05-29-2023 Episodic Coagulation and hemorrhagic disorders (20 sources) Thrombocytopenic disorder; Translations: [Thrombocytopenia, unspecified] Chronic Deficiency and other anemia (2 sources) Pancytopenia; Translations: [Other pancytopenia] 11-12-2023 Chronic Deficiency and other anemia (1 source) [...] 04-01-2011 Chronic Genitourinary symptoms and ill-defined conditions (17 sources) Mixed incontinence; Translations: [Incontinence] Onset: 12-02-2022 Chronic Genitourinary symptoms and ill-defined conditions (16 sources) Increased frequency of urination; Translations: [Isolated proteinuria] Onset: 05-27-2023 06-18-2020 Episodic Headache; including migraine (3 sources) Chronic tension-type headache; Translations: [Chronic tension-type headache, intractable] Onset: 08-12-2018 Chronic Headache; including migraine (3 sources) Headache; Translations: [Headache, unspecified] Onset: 08-04-2018 11-06-2023 Episodic Immunizations and screening for infectious disease (1 [...] sources) H/O: high risk medication; Translations: [Other joint terminal attack controller (current) drug therapy] Episodic Other circulatory disease (1 source) Cardiovascular symptoms; Translations: [Other specified symptoms and signs involving the circulatory and respiratory systems] Episodic Other connective tissue disease (9 sources) Impingement syndrome of shoulder region; Translations: [Shoulder impingement syndrome] Episodic Other connective tissue disease (1 source) Fibromyalgia; Translations: [Fibromyalgia] Episodic Other hematologic conditions (1 source) Splenic cyst 11-12-2023 Episodic Other hereditary and degenerative nervous system conditions (4 sources) Restless legs; Translations: [Restless legs syndrome] Onset: 08-04-2018 Chronic Other liver diseases (1 source) Fatty (change of) liver, not elsewhere classified; Translations: [Nonalcoholic fatty liver disease] 11-06-2023 Chronic Other liver diseases (1 source) Steatosis of liver 11-12-2023 Chronic Other lower respiratory disease (1 source) Dyspnea; Translations: [Other forms of dyspnea] Episodic Other male genital disorders (9 sources) Induratio penis plastica; 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] Onset: 12-09-2011 Chronic Other male genital disorders (2 sources) Secondary erectile dysfunction; 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] Onset: 12-02-2022 Chronic Other male genital disorders (5 sources) Erectile dysfunction following radical prostatectomy 12-02-2022 [...] Chronic Other nutritional; endocrine; and metabolic disorders (3 sources) Abnormal weight loss; Translations: [Abnormal weight loss] Onset: 11-17-2023 Episodic Other nutritional; endocrine; and metabolic disorders (6 sources) Abnormal weight loss; Translations: [Loss of weight] Episodic Other nutritional; endocrine; and metabolic disorders (1 source) Unexplained weight loss ; Translations: [Abnormal weight loss] 11-01-2023 Episodic Other screening for suspected conditions (not mental disorders or infectious disease) (7 sources) Raised prostate specific antigen; Translations: [Elevated prostate specific antigen [PSA]] Resolved: 06-14-2020 03-12-2020 Episodic Other skin disorders (1 source) Ingrowing nail; Translations: [Ingrowing nail] Episodic Residual codes; unclassified (20 sources) Obstructive sleep apnea syndrome; Translations: [Obstructive sleep apnea (adult) (pediatric)] Onset: 08-04-2018 11-06-2023 Chronic Residual codes; unclassified (6 sources) Obstructive sleep apnea (adult) (pediatric); Translations: [Obstructive sleep apnea (adult)(pediatric)] Chronic Residual codes; unclassified (1 source) Sleep apnea; Translations: [Sleep apnea, unspecified] Onset: 08-04-2018 Chronic Residual codes; unclassified (9 sources) Insomnia; Translations: [Insomnia, unspecified] Episodic Residual codes; unclassified (1 source) Sleep disorder 11-12-2023 Episodic Respiratory failure; insufficiency; arrest (adult) (1 [...] Date Documented Da te Episodic/Chronic Esophageal disorders (6 sources) Esophageal disorders; Translations: [Gastro-esophageal reflux disease with esophagitis, without bleeding] Inflammatory conditions of male genital organs (1 source) Chronic prostatitis; Translations: [Chronic prostatitis] Resolved: 03-12-2020 Chronic Other aftercare (1 source) High risk drug monitoring status; Translations: [long-term (current) use of opiate analgesic] Onset: 02-09-2019 [...] Value Interpretation Reference Range Facility Insurance Correspondenceon 0 12-10-2023 Insurance Correspondence [id number]#1.00TIFF [facility] Consent for Procedure/Surger yon 11-18-2023 Consent for Procedure/Surgery [id number]#1.00TIFF Normal [facility] Ambulatory Visit Summaryon 0 11-17-2023 Ambulatory Visit Summary YENI CONNOR Swapnil :1960 Visit Date:11/17/2023 Ambulatory Visit Instructions Your Care Team Attending Physician - Giorgio GONZALES MD Primary Care Physician - SAMMY AGUILERA DO Referring Physician - SAMMY AGUILERA DO This Is [...] LUGO, Kayla Dubose Where: [facility] Transfer Inon 11-09-2023 Transfer In [id number]#1.00TIFF [facility] Physician Referralon 024 Physician Referral [id number]#1.00TIFF [facility] Insurance Correspondenceon 09-20-2022 Insurance Correspondence [id number]#1.00TIFF [facility] Reportability Response - [facility] 06-03-2023 Reportability Response - Public Health {[id number]}XML [facility] Insurance Correspondence Off iceon 06-01-2023 Insurance Correspondence Office [id number]#1.00TIFF [facility] Discharge Instructionson Discharge Instructions [id number]#1.00TIFF [facility] Insurance Correspondence Off iceon 05-31-2023 Insurance Correspondence Office [id number]#1.00TIFF [facility] Insurance Correspondence Office [id number]#1.00TIFF Normal [facility] Auto Diffon 05-30-2023 Basophils/100 WBC (Bld) 0.3 % Normal 0.0-2.0 [facility] Comment on above: Order Comment: Order Added by Discern Expert. Performed By: #### 2 155196, 0773261, 0052273, 86572515, 3974245 ####[address] [address] Basophils/Leukocytes Auto (Bld) [Pure # fraction] 0.0 E9/L Normal 0.0-0.2 [facility] Comment on above: Order Comment: Order Added by Discern Expert. Performed By: #### 2 011394, 0665787, 1006463, 85726313, 1321846 ####[address] [address] Eosinophils/100 WBC (Bld) 0.0 % Normal 0.0-8.0 [facility] Comment on above: Order Comment: Order Added by Discern Expert. Performed By: #### 2 725592, 7599236, 8879033, 14652482, 1900831 ####[address] [place] [address] Eosinophils/Leukocyt es Auto (Bld) [Pure # fraction] 0.0 E9/L Normal 0.0-0.5 [facility] Comment on above: Order Comment: Order Added by Discern Expert. Performed By: #### 2 554793, 4647025, 8838421, 57549505, 4455983 ####[address] [address] Lymphocytes/100 WBC (Bld) 17.8 % Normal 14.0-50.0 [facility] Comment on above: Order Comment: Order Added by Discern Expert. Performed By: #### 2 015917, 0809216, 9967282, 29487507, 5032052 ####[address] [address] Lymphocytes/Leukocyt es Auto (Bld) [Pure # fraction] 0.8 E9/L Low 1.0-4.0 [facility] Comment on above: Order Comment: Order Added by Discern Expert. Performed By: #### 2 319297, 3591899, 7652596, 84019882, 7011026 ####[address] [place] [address] Monocytes/100 WBC (Bld) 6.9 % Normal 4.0-14.0 [facility] Comment on above: Order Comment: Order Added by Discern Expert. Performed By: #### 2 407084, 4041588, 4202379, 11692336, 1183882 ####[address] [place] [address] Monocytes/Leukocytes Auto (Bld) [Pure # fraction] 0.3 E9/L Normal 0.2-1.0 [facility] Comment on above: Order Comment: Order Added by Discern Expert. Performed By: #### 2 306548, 5476208, 7217437, 35496495, 9173964 ####[address] [address] Neutrophils/100 WBC (Bld) 75.0 % Normal 36.0-75.0 [facility] Comment on above: Order Comment: Order Added by Discern Expert. Performed By: #### 2 773892, 4025740, 5019223, 15756722, 0014888 ####[address] [place] [address] Neutrophils/Leukocyt es Auto (Bld) [Pure # fraction] 3.6 E9/L Normal 2.0-7.5 [facility] Comment on above: Order Comment: Order Added by Discern Expert. Performed By: #### 2 812291, 6326612, 7323574, 23586755, 9814954 ####[address] [place] [address] BMPon 05-30-2023 Anion gap [Moles/Vol] 9 mmol/L Normal 6-16 [facility] Comment on above: Performed By: #### 2 576397, 2259409, 9884834, 11083824, 71000333, 1663748 #### [facility] [address] [place] [address] Calcium [Mass/Vol] 8.6 mg/dL Low 8.9-11.1 [facility] Comment on above: Performed By: #### 2 620132, 4162996, 3143095, 40304472, 78561614, 6213535 #### [facility] [address] [place] [address] Chloride [Moles/Vol] 94 mmol/L Low 101-[address] [facility] Comment on above: Performed By: #### 2 382307, 5749225, 2165944, 73473535, 01920640, 6796372 #### [facility] [address] [place] [address] CO2 [Moles/Vol] 35 mmol/L High 21-31 [facility] Comment on above: Performed By: #### 2 641040, 7733489, 2326178, 31642521, 18098559, 3737693 #### [facility] [address] [place] [address] Creatinine [Mass/Vol] 0.7 mg/dL Normal 0.5-1.3 [facility] Comment on above: Performed By: #### 2 548722, 9266650, 6441906, 98989008, 13105820, 3288368 #### [facility] [address] [place] [address] Glucose [Mass/Vol] 88 mg/dL Normal 55-199 [facility] Comment on above: Result Comment: If t his glucose result represents a fasting glucose, interpretation should refer to the following reference range: 55-99 mg/dL Performed By: #### 2 178740, 2408591, 0156754, 26015875, 01512471, 4342314 #### [facility] [address] [place] [address] Potassium [Moles/Vol] 3.3 mmol/L Low 3.5-5.3 [facility] Comment on above: Performed By: #### 2 180697, 2448169, 7753263, 77932441, 72008514, 8889637 #### [facility] [address] [place] [address] Sodium [Moles/Vol] 135 mmol/L Normal 135-145 [facility] Comment on above: Performed By: #### 2 982365, 5028979, 9216668, 93082005, 92956020, 7951218 #### [facility] [address] [place] [address] Urea nitrogen [Mass/Vol] 25 mg/dL High 5-21 [facility] Comment on above: Performed By: #### 2 086233, 1085478, 8467979, 57883711, 00254501, 7081489 #### [facility] [address] [place] [address] Urea nitrogen/Creatinine [Mass ratio] 36 No Units High 10-20 [facility] Comment on above: Performed By: #### 2 291723, 4772550, 7531720, 17910799, 19680581, 8725674 #### [facility] [address] [place] [address] CBC w/ Auto Diffon Erythrocyte distribution width (RBC) [Ratio] 13.1 % Normal 10.9-14.2 [facility] Comment on above: Performed By: #### 2 230169, 1514063, 5007273, 85518587, 6918864 ####[facility] [address] [place] [address] Hematocrit (Bld) [Volume fraction] 39.3 % Normal 37.7-49.0 [facility] Comment on above: Performed By: #### 2 511374, 1123175, 9288706, 53685694, 4781346 ####[facility] [address] [place] [address] Hemoglobin (Bld) [Mass/Vol] 13.1 g/dL Low 13.5-17.5 [facility] Comment on above: Performed By: #### 2 019667, 2982508, 5330894, 27871018, 3863174 ####[address] [place] [address] MCH (RBC) [Entitic mass] 28.8 pg Normal 27.0-34.0 [facility] Comment on above: Performed By: #### 2 384227, 9649486, 5267731, 71077730, 9240728 ####[address] [address] MCHC (RBC) [Mass/Vol] 33.3 g/dL Normal 31.4-36.0 [facility] Comment on above: Performed By: #### 2 567490, 1957294, 6697984, 07661420, 5419489 ####[address] MCV (RBC) [Entitic vol] 86.4 fL Normal 80.0-100.0 [facility] Comment on above: Performed By: #### 2 399709, 1684229, 9813772, 94815216, 6142950 ####[address] [address] Platelet mean volume (Bld) [Entitic vol] 8.5 fL Normal 6.4-10.8 [facility] Comment on above: Performed By: #### 2 174934, 8675617, 2878144, 57318324, 2820769 ####[address] [place] [address] Platelets (Bld) [#/Vol] 167.0 E9/L Normal 150.0-500. 0 [facility] Comment on above: Performed By: #### 2 502767, 3270867, 7168000, 96462918, 8096818 ####[address] [address] RBC (Bld) [#/Vol] 4.5 E12/L Normal 4.3-5.9 [facility] Comment on above: Performed By: #### 2 904534, 3338999, 0374025, 19917183, 7547533 ####[facility] [address] [place] [address] WBC corrected for nucl RBC Auto (Bld) [#/Vol] 4.8 E9/L Normal 4.0-11.0 [facility] Comment on above: Performed By: #### 2 508497, 7086592, 4231319, 77679565, 9591849 ####[facility] [address] [place] [address] CHEMISTRYOrdered By: SYSTEM SYSTEM on 05-30-2023 Vancomycin trough [Moles/Vol] 13 microgram/mL Normal 10 - 20 mcg/mL [facility] Remisol Anion gap [Moles/Vol] 9 mmol/L Normal 6 - 16 mEq/L [facility] Remisol Calcium [Mass/Vol] 8.6 mg/dL Low 8.9 - 11. 1 mg/dL [facility]isol Chloride [Moles/Vol] 94 mmol/L Low 101 - 1 11 mmol/L [facility] CO2 [Moles/Vol] 35 mmol/L High 21 - 31 mmol/L [facility] Creatinine [Mass/Vol] 0.7 mg/dL Normal 0.5 - 1.3 mg/dL [facility] GFR/1.73 sq M.predicted among non-blacks MDRD (S/P/Bld) [Vol rate/Area] 102 mL/min/1.73 m2 Normal >=59mL/min /1.73 m2 [facility] Chem S Comment on above: Interpretive Data: C hronic kidney disease could be indicated at eGFR's of less than 60 mL/min/1.73m2. Kidney failure is indicated at less than 15 mL/min/1.73m2. Glucose [Mass/Vol] 88 mg/dL Normal 55 - 199 mg/dL [facility] Rem[facility] Comment on above: Interpretive Data: I [...] Normal 0.0 - 8.0 % [facility] HemeAutoSS Eosinophils/Leukocyt es Auto (Bld) [Pure # fraction] 0.0 E9/L Normal 0.0 - 0.5 E9/L [facility] HemeAutoSS Lymphocytes/100 WBC (Bld) 17.8 % Normal 14.0 - 50.0 % [facility] HemeAutoSS Lymphocytes/Leukocyt es Auto (Bld) [Pure # fraction] 0.8 E9/L Low 1.0 - 4.0 E9/L [facility] HemeAutoSS Monocytes/100 WBC (Bld) 6.9 % Normal 4.0 - 14.0 % [facility] HemeAutoSS Monocytes/Leukocytes Auto (Bld) [Pure # fraction] 0.3 E9/L Normal 0.2 - 1.0 E9/L [facility] HemeAutoSS Neutrophils/100 WBC (Bld) 75.0 % Normal 36.0 - 75.0 % [facility] HemeAutoSS Neutrophils/Leukocyt es Auto (Bld) [Pure # fraction] 3.6 E9/L [...] Care Team Admitting Physician - KAZ LUGO, [facility] Reason for Your Visit Covid-weak/dizzy/SOB Your Diagnosis [...] Pending Diagnostic Test Results None Pharmacy Information [facility] Discharge Instructions Return to ER symptoms change or worsen. Previously Scheduled Follow-Up Appointments Wednesday 10:45 AM EDT With: Brian LUGO, Kayla Dubose Where: [facility] Interdisciplinary Note - Daniel e Manageron 05-30-2023 Interdisciplinary Note - Fire Suppression Captain CRM to room to discuss DC planning. Patient is awake, alert and oriented. Patient [place] from [place] Patient verified PCP, home DME and insurance. Patient is here as inpatient. Medicare form signed. Patient is here with Weakness, dizziness, and Covid /26. Patient is on isolation. Patient is assigned to Dr Spivey, see notes. Patient has been weaned to RA. . Patient was offered DC needs for DME, HH and PM. Patient denied any DC needs. Patient was provided CRM contact, ivan board updated. Anticipated DC 05/30 or 05/31 CRM following [facility] Comment on above: Result Comment: Elec tronically Signed By: Dolly Copeland\.br\Date and Time Signed: 05/30/23 10:59 EDT Monitor Recordon 05-30-2023 Monitor Record [id number]#1.00TIFF Normal [facility] Monitor Record [id number]#1.00TIFF Normal [facility] Progress Note - Pharmacyon 1 Progress [...] 06:18:00) Lymph Auto: 17.8 % (05/30/23 06:18:00) [place] Auto: 6.9 % (05/30/23 06:18:00) Eos Auto: 0 % (05/30/23 06:18:00) Basophil Auto: 0.3 % (05/30/23 06:18:00) Neutro Absolute: 3.6 E9/L (05/30/23 06:18:00) Lymph Absolute: 0.8 E9/L Low (05/30/23 06:18:00) [place] Absolute: 0.3 E9/L (05/30/23 06:18:00) Eos Absolute: [...] Vanco Pk: 25 mcg/mL (05/30/23 06:18:00) Normal [facility] Vanco Peakon 05-30-2023 VANCOMYCIN 25 microgram/mL Normal 20-40 [facility] Comment on above: Order Comment: Pleas e drawn Vancomycin Peak 1 hour after the completion of the 0200 dose on 05/30/23. Thank you.Per Rigoberto nurse draw at 600am per vanco will not be done until 500am heb 05/30/2023 05:18:00 EDT Performed By: #### 2 059756, 8178731, 4418095, 19539145, 82881749, 0297370 #### [facility] [address] [place] [address] Vanco Troughon 05-30-2023 VANCOMYCIN 13 microgram/mL Normal 10-20 [facility] Comment on above: Order Comment: NOTE: Trough is scheduled 1 hour prior to next dose. Thank you. Performed By: #### 2 491091, 4787091, 3348091, 26820343, 39933788, 0903244 #### [facility] [address] [place] [address] eGFRon 05-30-2023 GFR/1.73 sq M.predicted among non-blacks MDRD (S/P/Bld) [Vol rate/Area] 102 mL/min/1.73 m2 Normal >=59 [facility] Comment on above: Order Comment: Order added by Discern Expert. Result Comment: Well Treatment Offsider radha kidney disease could be indicated at eGFR's of less than 60 mL/min/1.73m2. Kidney failure is indicated at less than 15 mL/min/1.73m2. Performed By: #### 2 985638, 2835614, 0034333, 43322109, 98176793, 1009972 #### [facility] [address] [place] [address] Auto Diffon 05-29-2023 Basophils/100 WBC (Bld) 0.2 % Normal 0.0-2.0 [facility] Comment on above: Order Comment: Order Added by Discern Expert. Performed By: #### 2 896749, 6815043, 5620066, 07200382, 10752208, 0930384 #### [facility] [address] [place] [address] Basophils/Leukocytes Auto (Bld) [Pure # fraction] 0.0 E9/L Normal 0.0-0.2 [facility] Comment on above: Order Comment: Order Added by Discern Expert. Performed By: #### 2 724035, 3729396, 3179741, 49306360, 36641538, 4081113 #### [facility] [address] [place] [address] Eosinophils/100 WBC (Bld) 0.2 % Normal 0.0-8.0 [facility] Comment on above: Order Comment: Order Added by Emma Expert. Performed By: #### 2 848896, 6037412, 4231362, 98941490, 72366942, 7672081 #### [facility] [address] [place] [address]5468 Eosinophils/Leukocyt es Auto (Bld) [Pure # fraction] 0.0 E9/L Normal 0.0-0.5 [facility] Comment on above: Order Comment: Order Added by Emma Expert. Performed By: #### 2 084388, 5069486, 0513426, 52128812, 20143304, 0122628 #### [facility] [address] [place] [address]281 Lymphocytes/100 WBC (Bld) 12.6 % Low 14.0-50.0 [facility] Comment on above: Order Comment: Order Added by Emma Expert. Performed By: #### 2 091153, 7509291, 9043489, 26906536, 56897681, 2581301 #### [facility] [address] [place] [address] 76180 Lymphocytes/Leukocyt es Auto (Bld) [Pure # fraction] 0.7 E9/L Low 1.0-4.0 [facility] Comment on above: Order Comment: Order Added by Emma Expert. Performed By: #### 2 164121, 4827830, 4069640, 28981195, 52890910, 6269622 #### [facility] [address] [place] [address] Monocytes/100 WBC (Bld) 7.5 % Normal 4.0-14.0 [facility] Comment on above: Order Comment: Order Added by Discern Expert. Performed By: #### 2 979367, 9958257, 9400062, 96823132, 35718697, 8061704 #### [facility] [address] [place] [address] Monocytes/Leukocytes Auto (Bld) [Pure # fraction] 0.4 E9/L Normal 0.2-1.0 [facility] Comment on above: Order Comment: Order Added by Discern Expert. Performed By: #### 2 538682, 6959569, 3651248, 58000475, 46879384, 8957612 #### [facility] [address] [place] [address] 36152 Neutrophils/100 WBC (Bld) 79.5 % High 36.0-75.0 [facility] Comment on above: Order Comment: Order Added by Emma Expert. Performed By: #### 2 533333, 7121555, 2763912, 24923750, 17294669, 6378031 #### [facility] [address] [place] [address] 83591 Neutrophils/Leukocyt es Auto (Bld) [Pure # fraction] 4.6 E9/L Normal 2.0-7.5 [facility] Comment on above: Order Comment: Order Added by Discern Expert. Performed By: #### 2 904068, 5739117, 5516268, 95111790, 30465489, 4197068 #### [facility] [address] [place] [address] 1969[address] Bili Directon 05-29-2023 Bilirubin.direct [Mass/Vol] 0.1 mg/dL Normal 0.1-0.4 [facility] Comment on above: Order Comment: Order Added by Discern Expert. Performed By: #### 2 442362, 4463288, 5287707, 55714652, 41527379, 3517238 #### [facility] [address] [place] [address] 96818 CBC w/ Auto Diffon Erythrocyte distribution width (RBC) [Ratio] 13.3 % Normal 10.9-14.2 [facility] Comment on above: Performed By: #### 2 508446, 0528152, 8082154, 15476111, 35772429, 5678712 #### [facility] [address] [place] [address] Hematocrit (Bld) [Volume fraction] 32.0 % Low 37.7-49.0 [facility] Comment on above: Performed By: #### 2 340305, 0546193, 4215444, 26559836, 00423882, 4718159 #### [facility] [address] [place] [address]897 Hemoglobin (Bld) [Mass/Vol] 10.9 g/dL Low 13.5-17.5 [facility] Comment on above: Performed By: #### 2 856824, 1660170, 1567713, 02286826, 92262849, 8600820 #### [facility] [address] [place] [address] 95025 MCH (RBC) [Entitic mass] 29.4 pg Normal 27.0-34.0 [facility] Comment on above: Performed By: #### 2 109581, 1818556, 4380172, 91681506, 19552599, 7868801 #### [facility] [address] [place] [address] 65368 MCHC (RBC) [Mass/Vol] 34.2 g/dL Normal 31.4-36.0 [facility] Comment on above: Performed By: #### 2 422251, 7325046, 2976448, 01075238, 18063900, 9045435 #### [facility] [address] [place] [address] 78311 MCV (RBC) [Entitic vol] 85.8 fL Normal 80.0-100.0 [facility] Comment on above: Performed By: #### 2 602884, 3334049, 9226247, 10941421, 85842978, 9093320 #### [facility] [address] [place] [address] Platelet mean volume (Bld) [Entitic vol] 8.3 fL Normal 6.4-10.8 [facility] Comment on above: Performed By: #### 2 348851, 6032254, 6027790, 17581826, 75088620, 9526914 #### [facility] [address] [place] [address] Platelets (Bld) [#/Vol] 156.0 E9/L Normal 150.0-500. 0 [facility] Comment on above: Performed By: #### 2 666324, 1937839, 9860327, 37644035, 41670653, 1735484 #### [facility] [address] [place] [address] 63519 RBC (Bld) [#/Vol] 3.7 E12/L Low 4.3-5.9 [facility] Comment on above: Performed By: #### 2 779315, 1887493, 8834544, 74779536, 24421670, 7071341 #### [facility] [address] [place] [address] WBC corrected for nucl RBC Auto (Bld) [#/Vol] 5.8 E9/L Normal 4.0-11.0 [facility] Comment on above: Performed By: #### 2 008432, 2277061, 0007578, 46447953, 82598664, 9260267 #### [facility] [address] [place] [address] CHEMISTRYOrdered By: SYSTEM SYSTEM on 05-29-2023 Albumin [Mass/Vol] 2.5 g/dL Low 3.3 - 5.0 gm/dL [facility] Albumin/Globulin [Mass ratio] 0.9 {ratio} Low 1.1 - 2.2 [facility] ALP [Catalytic activity/Vol] 43 [iU]/d Normal 21 - 98 Int._Unit/ L [facility] ALT No additional P-5'-P [Catalytic activity/Vol] 10 [iU]/d Normal 6 - 46 Int._Unit/ L [facility] Anion gap [Moles/Vol] 7 mmol/L Normal 6 - 16 mEq/L [facility] AST [Catalytic activity/Vol] 15 [iU]/d Normal 5 - 43 Int._Unit/ L [facility] Bilirubin [Mass/Vol] 0.3 mg/dL Normal [...] (S/P/Bld) [Vol rate/Area] 98 mL/min/1.73 m2 Normal >=59mL/min /1.73 m2 [facility] Chem S Comment on above: Interpretive Data: [...] 3.7 mmol/L Normal 3.5 - 5.3 mmol/L [facility] Protein [Mass/Vol] 5.2 g/dL Low 6.0 - 7.8 gm/dL [facility] Sodium [Moles/Vol] 139 mmol/L Normal 135 - 145 mmol/L [facility] TSH Qn 1.15 m[IU]/L Normal 0.34 - 5.60 mcIU/mL [facility] Urea nitrogen [Mass/Vol] 27 mg/dL High 5 - 21 mg/dL [facility] Urea nitrogen/Creatinine [Mass ratio] 34 mg/mg High 10 - 20 [facility] CMPon 05-29-2023 Albumin [Mass/Vol] 2.5 g/dL Low 3.3-5.0 [facility] Comment on above: Performed By: #### 2 941645, 7977993, 2326872, 08641855, 95942493, 7101065 #### [facility] [address] [place] [address] Albumin/Globulin (S) [Mass conc ratio] 0.9 Low 1.1-2.2 [facility] Comment on above: Performed By: #### 2 615432, 1383234, 2528983, 44259259, 31357790, 8640044 #### [facility] [address] [place] [address] ALP [Catalytic activity/Vol] 43 Int._Unit/L Normal 21-98 [facility] Comment on above: Performed By: #### 2 852754, 8076910, 3628436, 87378064, 80640314, 9307958 #### [facility] [address] [place] [address] ALT No additional P-5'-P [Catalytic activity/Vol] 10 Int._Unit/L Normal 6-46 [facility] Comment on above: Performed By: #### 2 693385, 6321763, 5715554, 59645109, 72990395, 9509175 #### [facility] [address] [place] [address] Anion gap [Moles/Vol] 7 mmol/L Normal 6-16 [facility] Comment on above: Performed By: #### 2 484358, 3596441, 6266812, 61929283, 60976297, 9138168 #### [facility] [address] [place] [address] AST [Catalytic activity/Vol] 15 Int._Unit/L Normal 5-43 [facility] Comment on above: Performed By: #### 2 847820, 4159414, 0907968, 43998793, 26375274, 3575300 #### [facility] [address] [place] [address] Bilirubin [Mass/Vol] 0.3 mg/dL Normal 0.0-1.1 [facility] Comment on above: Performed By: #### 2 783808, 0824751, 5562306, 76280645, 80845968, 6308717 #### [facility] [address] [place] [address] Calcium [Mass/Vol] 8.6 mg/dL Low 8.9-11.1 [facility] Comment on above: Performed By: #### 2 490569, 8736729, 6346942, 55739657, 62528116, 3995528 #### [facility] [address] [place] [address] Chloride [Moles/Vol] 102 mmol/L Normal 101-111 [facility] Comment on above: Performed By: #### 2 218838, 0702841, 0635423, 70830522, 93479336, 8876977 #### [facility] [address] [place] [address] CO2 [Moles/Vol] 34 mmol/L High 21-31 [facility] Comment on above: Performed By: #### 2 047052, 2991056, 2412842, 94957733, 97476931, 3096351 #### [facility] [address] [place] [address] Creatinine [Mass/Vol] 0.8 mg/dL Normal 0.5-1.3 [facility] Comment on above: Performed By: #### 2 503397, 1327877, 4555353, 21581271, 62905774, 6410555 #### [facility] [address] [place] [address] Globulin (S) [Mass/Vol] 2.7 g/dL Normal 1.4-4.0 [facility] Comment on above: Performed By: #### 2 383991, 2230325, 1749083, 41397742, 58406302, 3243368 #### [facility] [address] [place] [address] Glucose [Mass/Vol] 93 mg/dL Normal 55-199 [facility] Comment on above: Result Comment: If t his glucose result represents a fasting glucose, interpretation should refer to the following reference range: 55-99 mg/dL Performed By: #### 2 870917, 0369765, 5527409, 70065251, 61167831, 5673451 #### [facility] [address] [place] [address] Potassium [Moles/Vol] 3.7 mmol/L Normal 3.5-5.3 [facility] Comment on above: Performed By: #### 2 179447, 1644609, 7970809, 42069502, 94038731, 4884552 #### [facility] [address] [place] [address] Protein [Mass/Vol] 5.2 g/dL Low 6.0-7.8 [facility] Comment on above: Performed By: #### 2 594600, 0061477, 0498152, 91708761, 69303621, 0090203 #### [facility] [address] [place] [address] Sodium [Moles/Vol] 139 mmol/L Normal 135-145 [facility] Comment on above: Performed By: #### 2 198974, 1618886, 6972089, 45742777, 43673085, 3472019 #### [facility] [address] [place] [address] Urea nitrogen [Mass/Vol] 27 mg/dL High 5-21 [facility] Comment on above: Performed By: #### 2 816095, 5389540, 9887669, 75417391, 75408356, 9183548 #### [facility] [address] [place] [address] Urea nitrogen/Creatinine [Mass ratio] 34 No Units High 10-20 [facility] Comment on above: Performed By: #### 2 861049, 5289420, 6844386, 30987930, 26236823, 7353305 #### [facility] [address] [place] [address] HEMATOLOGYOrdered By: SYSTEM SYSTEM on 05-29-2023 Basophils/100 WBC (Bld) 0.2 % Normal 0.0 - 2.0 % [facility] HemeAutoSS Basophils/Leukocytes Auto (Bld) [Pure # fraction] 0.0 E9/L Normal 0.0 - 0.2 E9/L [facility]eAutoSS Eosinophils/100 WBC (Bld) 0.2 % Normal 0.0 - 8.0 % [facility] HemeAutoSS Eosinophils/Leukocyt es Auto (Bld) [Pure # fraction] 0.0 E9/L Normal 0.0 - 0.5 E9/L [facility]eAutoSS Lymphocytes/100 WBC (Bld) 12.6 % Low 14.0 - 50.0 % [facility] HemeAutoSS Lymphocytes/Leukocyt es Auto (Bld) [Pure # fraction] 0.7 E9/L Low 1.0 - 4.0 E9/L [facility]eAutoSS Monocytes/100 WBC (Bld) 7.5 % Normal 4.0 - 14.0 % [facility]eAutoSS Monocytes/Leukocytes Auto (Bld) [Pure # fraction] 0.4 E9/L Normal 0.2 - 1.0 E9/L [facility]eAutoSS Neutrophils/100 WBC (Bld) 79.5 % High 36.0 - 75.0 % [facility] HemeAutoSS Neutrophils/Leukocyt es Auto (Bld) [Pure # fraction] 4.6 E9/L [...] 5.8 E9/L Normal 4.0 - 11.0 E9/L [facility] HemeAutoSS Monitor Recordon 05-29-2023 Monitor Record [id number]#1.00TIFF Normal [facility] Monitor Record [id number]#1.00TIFF Normal [facility] Monitor Record [id number]#1.00TIFF Normal [facility] TSH With T4fr Reflexon 05-29 TSH Qn 1.15 m[IU]/L Normal 0.34-5.60 [facility] Comment on above: Performed By: #### 2 924848, 9921994, 6101552, 04137827, 47508787, 5135186 #### [facility] [address] [place] [address]59[address] eGFRon 05-29-2023 GFR/1.73 sq M.predicted among non-blacks MDRD (S/P/Bld) [Vol rate/Area] 98 mL/min/1.73 m2 Normal >=59 [facility] Comment on above: Order Comment: Order added by Discern Expert. Result Comment: Well Treatment Offsider radha kidney disease could be indicated at eGFR's of less than 60 mL/min/1.73m2. Kidney failure is indicated at less than 15 mL/min/1.73m2. Performed By: #### 2 855935, 9362505, 9784685, 50609803, 79565060, 6386062 #### [facility] [address] [place] [address] Auto Diffon 05-28-2023 Basophils/100 WBC (Bld) 0.1 % Normal 0.0-2.0 [facility] Comment on above: Order Comment: Order Added by Discern Expert. Performed By: #### 2 742491, 1521054, 7452207, 73625437, 02406389, 7360424 #### [facility] [address] [place] [address] Basophils/Leukocytes Auto (Bld) [Pure # fraction] 0.0 E9/L Normal 0.0-0.2 [facility] Comment on above: Order Comment: Order Added by Discern Expert. Performed By: #### 2 789779, 2375754, 3115955, 85759169, 05729946, 7530340 #### [facility] [address] [place] [address] Eosinophils/100 WBC (Bld) 0.0 % Normal 0.0-8.0 [facility] Comment on above: Order Comment: Order Added by Discern Expert. Performed By: #### 2 395976, 8534463, 1012604, 29571739, 28318368, 9966670 #### [facility] [address] [place] [address] Eosinophils/Leukocyt es Auto (Bld) [Pure # fraction] 0.0 E9/L Normal 0.0-0.5 [facility] Comment on above: Order Comment: Order Added by Discern Expert. Performed By: #### 2 334930, 9164678, 6235662, 04849097, 37611402, 4807439 #### [facility] [address] [place] [address] 596[address] Lymphocytes/100 WBC (Bld) 6.8 % Low 14.0-50.0 [facility] Comment on above: Order Comment: Order Added by Discern Expert. Performed By: #### 2 306962, 8283273, 3658864, 72666749, 30040235, 9939545 #### [facility] [address] [place] [address] 17817 Lymphocytes/Leukocyt es Auto (Bld) [Pure # fraction] 0.4 E9/L Low 1.0-4.0 [facility] Comment on above: Order Comment: Order Added by Emma Expert. Performed By: #### 2 611501, 7116551, 2076231, 25791713, 57695202, 3747609 #### [facility] [address] [place] [address] 03561 Monocytes/100 WBC (Bld) 3.6 % Low 4.0-14.0 [facility] Comment on above: Order Comment: Order Added by Emma Expert. Performed By: #### 2 502485, 4571760, 1408168, 40496113, 30512064, 0080591 #### [facility] [address] [place] [address] Monocytes/Leukocytes Auto (Bld) [Pure # fraction] 0.2 E9/L Normal 0.2-1.0 [facility] Comment on above: Order Comment: Order Added by Emma Expert. Performed By: #### 2 258050, 3724783, 9050496, 29505072, 88009473, 9922776 #### [facility] [address] [place] [address] 990[address] Neutrophils/100 WBC (Bld) 89.5 % High 36.0-75.0 [facility] Comment on above: Order Comment: Order Added by Emma Expert. Performed By: #### 2 705308, 1343102, 5850624, 31710545, 57755057, 8638749 #### [facility] [address] [place] [address] Neutrophils/Leukocyt es Auto (Bld) [Pure # fraction] 4.9 E9/L Normal 2.0-7.5 [facility] Comment on above: Order Comment: Order Added by Discern Expert. Performed By: #### 2 290208, 9619934, 2499553, 26146882, 26484320, 0464797 #### [facility] [address] [place] [address] BMPon 05-28-2023 Anion gap [Moles/Vol] 10 mmol/L Normal 6-16 [facility] Comment on above: Performed By: #### 2 940419, 1863668, 9415641, 31932503, 61499187, 6624244 #### [facility] [address] [place] [address] Calcium [Mass/Vol] 9.1 mg/dL Normal 8.9-11.1 [facility] Comment on above: Performed By: #### 2 434927, 6775528, 2991409, 62114552, 75078821, 4397135 #### [facility] [address] [place] [address] Chloride [Moles/Vol] 98 mmol/L Low 101-111 [facility] Comment on above: Performed By: #### 2 527450, 9537480, 4395690, 41202450, 11298499, 4404881 #### [facility] [address] [place] [address] CO2 [Moles/Vol] 36 mmol/L High 21-31 [facility] Comment on above: Performed By: #### 2 643478, 5064756, 0821138, 51025767, 11614443, 8237925 #### [facility] [address] [place] [address] Creatinine [Mass/Vol] 0.8 mg/dL Normal 0.5-1.3 [facility] Comment on above: Performed By: #### 2 298541, 7742868, 3605948, 17589042, 55059501, 8296812 #### [facility] [address] [place] [address] Glucose [Mass/Vol] 107 mg/dL Normal 55-199 [facility] Comment on above: Result Comment: If t his glucose result represents a fasting glucose, interpretation should refer to the following reference range: 55-99 mg/dL Performed By: #### 2 747582, 5731875, 9898938, 99011627, 17121177, 7662646 #### [facility] [address] [place] [address] Potassium [Moles/Vol] 4.2 mmol/L Normal 3.5-5.3 [facility] Comment on above: Performed By: #### 2 633052, 2080521, 9001107, 93237227, 34566398, 5762438 #### [facility] [address] [place] [address] Sodium [Moles/Vol] 140 mmol/L Normal 135-145 [facility] Comment on above: Performed By: #### 2 738256, 6660270, 1462541, 25129161, 02764888, 5126982 #### [facility] [address] [place] [address] Urea nitrogen [Mass/Vol] 19 mg/dL Normal 5-21 [facility] Comment on above: Performed By: #### 2 298080, 6249789, 7828457, 26016838, 14666630, 9081000 #### [facility] [address] [place] [address] Urea nitrogen/Creatinine [Mass ratio] 24 No Units High 10-20 [facility] Comment on above: Performed By: #### 2 467105, 1605114, 4894872, 65015954, 66169591, 7762881 #### [facility] [address] [place] [address] CBC w/ Auto Diffon 10-27-202 3 Erythrocyte distribution width (RBC) [Ratio] 13.1 % Normal 10.9-14.2 [facility] Comment on above: Performed By: #### 2 110705, 3069213, 7878941, 36631139, 27015408, 5024449 #### [facility] [address] [place] [address] Hematocrit (Bld) [Volume fraction] 36.2 % Low 37.7-49.0 [facility] Comment on above: Performed By: #### 2 246129, 9006909, 7912388, 50346807, 86095065, 2924562 #### [facility] [address] [place] [address] Hemoglobin (Bld) [Mass/Vol] 12.2 g/dL Low 13.5-17.5 [facility] Comment on above: Performed By: #### 2 991851, 2598600, 7194133, 98222229, 24684511, 3636440 #### [facility] [address] [place] [address]37 MCH (RBC) [Entitic mass] 29.1 pg Normal 27.0-34.0 [facility] Comment on above: Performed By: #### 2 598028, 8873142, 6879145, 25441077, 98688677, 9766690 #### [facility] [address] [place] [address] MCHC (RBC) [Mass/Vol] 33.7 g/dL Normal 31.4-36.0 [facility] Comment on above: Performed By: #### 2 967473, 9738201, 1486119, 60612577, 26167378, 3966340 #### [facility] [address] [place] [address] 18222 MCV (RBC) [Entitic vol] 86.4 fL Normal 80.0-100.0 [facility] Comment on above: Performed By: #### 2 652994, 1509441, 3101085, 21360548, 35557183, 8759729 #### [facility] [address] [place] [address] Platelet mean volume (Bld) [Entitic vol] 7.9 fL Normal 6.4-10.8 [facility] Comment on above: Performed By: #### 2 242466, 0471156, 6879640, 88660347, 50029000, 0366724 #### [facility] [address] [place] [address] Platelets (Bld) [#/Vol] 147.0 E9/L Low 150.0-500. 0 [facility] Comment on above: Performed By: #### 2 409027, 7551869, 5327738, 45613078, 58086941, 2375020 #### [facility] [address] [place], [place] [address] RBC (Bld) [#/Vol] 4.2 E12/L Low 4.3-5.9 [facility] Comment on above: Performed By: #### 2 853325, 3326506, 1775500, [id number], [id number], 4246724 #### [facility] [address] [place] [address] 56262 WBC corrected for nucl RBC Auto (Bld) [#/Vol] 5.5 E9/L Normal 4.0-11.0 [facility] Comment on above: Performed By: #### 2 844896, 7202939, 4332815, 90363894, 69224433, 1242575 #### [facility] [address] [place], [place] [id number] CHEMISTRYOrdered By: Lab ROP User on 05-28-2023 Glucose [Mass/Vol] 120 mg/dL High 55 - 99 mg/dL [facility] POC Subsection Comment on above: Result Comment: Beatriz burger RN/ POC Username LUCY KAPADIA Invalid Interpretation Code [facility] POC Subsection Sodium [Moles/Vol] [id number] mmol/L Invalid Interpretation Code [facility] POC Subsection Sodium [Moles/Vol] [id number] mmol/L Invalid Interpretation Code [facility] POC Subsection CHEMISTRYOrdered By: SYSTEM SYSTEM on 05-28-2023 Albumin [Mass/Vol] 3.2 g/dL Low 3.3 - 5.0 gm/dL [facility] Remisol Albumin/Globulin [Mass ratio] 1.0 {ratio} Low 1.1 - 2.2 [facility] Remisol ALP [Catalytic activity/Vol] 58 [iU]/d Normal 21 - 98 Int._Unit/ L [facility] Remisol ALT No additional P-5'-P [Catalytic activity/Vol] 10 [iU]/d Normal 6 - 46 Int._Unit/ L [facility] Remisol Anion gap [Moles/Vol] 10 mmol/L Normal 6 - 16 mEq/L [facility] Remisol AST [Catalytic activity/Vol] 16 [iU]/d Normal 5 - 43 Int._Unit/ L [facility] Remisol Bilirubin [Mass/Vol] 0.5 mg/dL Normal 0.0 - 1 .1 mg/dL [facility] Remisol Bilirubin.direct [Mass/Vol] 0.2 mg/dL Normal 0.1 [...] (S/P/Bld) [Vol rate/Area] 98 mL/min/1.73 m2 Normal >=59mL/min /1.73 m2 [facility] Chem S Comment on above: Interpretive Data: C hronic kidney disease could be indicated at eGFR's of less than 60 mL/min/1.73m2. Kidney failure is indicated at less than 15 mL/min/1.73m2. Globulin (S) [Mass/Vol] 3.3 g/dL Normal 1.4 - 4.0 gm/dL [facility] Remisol Glucose [Mass/Vol] 107 mg/dL Normal 55 - 199 mg/dL [facility] Remisol Comment on above: Interpretive Data: I f this glucose result represents a fasting glucose, interpretation should refer to the following reference range: 55-99 mg/dL Potassium [Moles/Vol] 4.2 mmol/L Normal 3.5 - 5.3 mmol/L [facility] Remisol Protein [Mass/Vol] 6.5 g/dL Normal 6.0 - 7.8 gm/dL [facility] Remisol Sodium [Moles/Vol] 140 mmol/L Normal 135 - 145 mmol/L [facility] Remisol Urea nitrogen [Mass/Vol] 19 mg/dL Normal 5 - 21 mg/dL [facility] Remisol Urea nitrogen/Creatinine [Mass ratio] 24 mg/mg High [facility] Remisol Capillary Glucose POCon 05-03 Glucose [Mass/Vol] 120 mg/dL High 55-99 [facility] Comment on above: Result Comment: Beatriz burger RN/ Performed By: #### 2 933094, 2963821, 9395474, 68458243, 71279409, 1712294 #### [facility] [address] [place] [address] HEMATOLOGYOrdered By: SYSTEM SYSTEM on 05-28-2023 Basophils/100 WBC (Bld) 0.1 % Normal 0.0 - 2.0 % [facility] HemeAutoSS Basophils/Leukocytes Auto (Bld) [Pure # fraction] 0.0 E9/L Normal 0.0 - 0.2 E9/L [facility] HemeAutoSS Eosinophils/100 WBC (Bld) 0.0 % Normal 0.0 - 8.0 % [facility] HemeAutoSS Eosinophils/Leukocyt es Auto (Bld) [Pure # fraction] 0.0 E9/L Normal 0.0 - 0.5 E9/L [facility] HemeAutoSS Lymphocytes/100 WBC (Bld) 6.8 % Low 14.0 - 50.0 % [facility] HemeAutoSS Lymphocytes/Leukocyt es Auto (Bld) [Pure # fraction] 0.4 E9/L Low 1.0 - 4.0 E9/L [facility] HemeAutoSS Monocytes/100 WBC (Bld) 3.6 % Low 4.0 - 14.0 % [facility] HemeAutoSS Monocytes/Leukocytes Auto (Bld) [Pure # fraction] 0.2 E9/L Normal 0.2 - 1.0 E9/L [facility] HemeAutoSS Neutrophils/100 WBC (Bld) 89.5 % High 36.0 - 75.0 % [facility] HemeAutoSS Neutrophils/Leukocyt es Auto (Bld) [Pure # fraction] 4.9 E9/L [...] 05-28-2023 Albumin [Mass/Vol] 3.2 g/dL Low 3.3-5.0 [facility] Comment on above: Performed By: #### 2 904429, 0127234, 6538887, 23560993, 94735366, 4589107 #### [facility] [address] [place] [address] 67992 Albumin/Globulin (S) [Mass conc ratio] 1.0 Low 1.1-2.2 [facility] Comment on above: Performed By: #### 2 604034, 9698479, 8606843, 22806346, 87587474, 5695241 #### [facility] [address] [place] [address]87 ALP [Catalytic activity/Vol] 58 Int._Unit/L Normal 21-98 [facility] Comment on above: Performed By: #### 2 023043, 3680675, 2233541, 20884493, 63931544, 1352884 #### [facility] [address] [place] [address] 41943 ALT No additional P-5'-P [Catalytic activity/Vol] 10 Int._Unit/L Normal 6-46 [facility] Comment on above: Performed By: #### 2 126133, 6137258, 8098203, 20850448, 09628673, 5921780 #### [facility] [address] [place] [address] 72420 AST [Catalytic activity/Vol] 16 Int._Unit/L Normal 5-43 [facility] Comment on above: Performed By: #### 2 879852, 5733033, 7598409, 43412542, 34281787, 1030946 #### [facility] [address] [place] [address] 48474 Bilirubin [Mass/Vol] 0.5 mg/dL Normal 0.0-1.1 [facility] Comment on above: Performed By: #### 2 989327, 5969839, 0477674, 74398717, 33335623, 0844342 #### [facility] [address] [place] [address] 11190 Bilirubin.direct [Mass/Vol] 0.2 mg/dL Normal 0.1-0.4 [facility] Comment on above: Performed By: #### 2 041336, 1571826, 7613696, 62439959, 39235270, 1359584 #### [facility] [address] [place] [address] 29359 Bilirubin.indirect [Mass or moles/Vol] 0.4 mg/dL Normal 0.1-0.9 [facility] Comment on above: Performed By: #### 2 371040, 0904257, 6462654, 84573264, 48302464, 1699792 #### [facility] [address] [place] [address] 12614 Globulin (S) [Mass/Vol] 3.3 g/dL Normal 1.4-4.0 [facility] Comment on above: Performed By: #### 2 098112, 4932293, 5974682, 39498352, 10958257, 2559360 #### [facility] [address] [place] [address] 26367 Protein [Mass/Vol] 6.5 g/dL Normal 6.0-7.8 [facility] Comment on above: Performed By: #### 2 801542, 8225518, 2055401, 34659589, 12455069, 7168790 #### [facility] [address] [place] [address] 84663 Inpatient Clinical Summaryon 05-28-2023 Inpatient Clinical Summary [address] [address] Clinical Summary Person Information: Name: YENI CONNOR Age: 63 Years : 1960 Sex: Male PCP: SAMMY AGUILERA DO Marital Status: Race: White Ethnicity: Non- or Language: Citizen Of [place] Visit Id: Visit Reason: Cough; Dizziness; Weakness or fatigue; WEAKNESS, DIZZINESS Speciality: Acuity: Enc Type: Inpatient Med Service: Medical Arrival: 05/27/2023 13:12:53 Discharge: Dispo Type: Admitted as IP to this Hosp Address: [address] [place] [address] [id number] Provider Notes: Diagnosis: 1:COVID-19; 2:Acute hypoxemic respiratory [...] Location Start [place] Office Visit [facility] [place] 03/22/2024 10:45 AM 03/22/2024 11:00 AM Confirmed Patient Education Information: Normal [facility] Inpatient Patient Summaryon 05-28-2023 Inpatient Patient Summary [place] [address] Patient Discharge Instructions PERSON INFORMATION Name: YENI CONNOR Date of : 1960 Current Date: 05/28/2023 08:52:57 PHYSICIANS Admitting Physician: Miriam MCCURDY MD Primary Care Physician: SAMMY AGUILERA DO PCP [...] Location Start [place] Office Visit [facility] [place] 03/22/2024 10:45 AM 03/22/2024 11:00 AM Confirmed Comment: I YENI CONNOR, have received the attached patient education materials/instructions and have verbalized understanding: Patient Signature Date Clinican/Nurse Signature Date HERE ARE THE MEDICATION CHANGES THAT OCCURRED DURING YOUR HOSPITAL STAY Medications to Continue with No Changes Other Medications aripiprazole (Abilify 10 mg Tab) By Mouth every day. Last Dose: Nex t Dose: aspirin (aspirin 81 mg oral tablet) By Mouth every day. Last Dose: Nex t Dose: celecoxib (CeleBREX 200 mg Cap) By Mouth 2 times a day. Last Dose: Nex t Dose: divalproex sodium (divalproex sodium 500 mg ER Tab) By Mouth every day. Last Dose: Nex t Dose: pantoprazole (Pantoprazole [address] Tab) By Mouth every day. Last Dose: Nex t Dose: pravastatin (pravastatin 80 mg Tab) By Mouth every day. Last Dose: Nex t Dose: pregabalin (Lyrica 100 mg Cap) 1 Capsules By Mouth 3 times a day. Last Dose: Nex t Dose: ropinirole (Requip 1 mg Tab) By Mouth 3 times a day. Last Dose: Nex t Dose: sildenafil (sildenafil 50 mg Tab) 1 Tablets By Mouth As Directed. 1 hour before sexual activity. Do not exceed 100 mg (2 tabs) in 24 hours. Cannot take with nitro products.. Refills: 3. Last Dose: Nex t Dose: tizanidine (tizanidine 4 mg oral capsule) By Mouth 3 times a day. Last Dose: Nex t Dose: trazodone (traZODONE 100 mg Tab) 1 Tablets By Mouth once a day (at bedtime). Last Dose: Nex t Dose: vortioxetine (Trintellix 20 mg oral tablet) By Mouth every day. Last Dose: Nex t Dose: Comment: MEDICATION LIST PROVIDED FOR YOU [...] tablet) By Mouth every day. Pharmacy Information: [facility] Comment: PATIENT EDUCATION INFORMATION Instructions: Medication Leaflets: You may receive a survey from [employer] asking you to rate your care experience. Your feedback is important and will help us understand what we do well and how we can improve the quality of care we provide to y (more content not included)... [facility] Insurance Correspondence Off iceon 05-28-2023 Insurance Correspondence Office [id number]#1.00TIFF [facility] Insurance Correspondence Office [id number]#1.00TIFF [facility] Interdisciplinary Note - Daniel e Manageron 05-28-2023 Interdisciplinary Note - Fire Suppression Captain CRM to room to discuss DC planning. Patient is awake, alert and oriented. Patient is from home with his [place]. [place] transport [place]. Patient verified PCP, home DME and insurance. Patient is here as inpatient. Medicare form signed. Patient is here with Weakness, dizziness, and Covid [id number]. Patient is on isolation. Patient is assigned to Dr Spivey, see notes. Patient is on oxygen at 2L/NC. Patient does not wear any home oxygen. Patient will need weaned or a desat completed at [place]. Patient was offered DC needs for DME, HH and PM. Patient denied any DC needs. Patient was provided CRM contact, ivan board updated. Anticipated DC 05/30? CRM following [facility] Comment on above: Result Comment: Elec alexandroally Signed By: Dolly Copeland\.violeta\Date and Time Signed: 05/28/23 09:45 EDT Message from Medicareon - Message from Medicare [id number]#1.00TIFF [facility] Monitor Recordon 05-28-2023 Monitor Record [id number]#1.00TIFF Normal [facility] No Panel InformationOrdered By: ILEANA MICROBIOLOGY on 05-28-2023 Blood Culture Charcoal No growth at 2 days. Final to follow at [address] [facility] Blood Culture Charcoal No growth at 2 days. Final to follow at [address] [facility] Progress Note - Pharmacyon 1 Progress [...] Lymph Auto: 6.8 % Low (05/28/23 06:12:00) [place] Auto: 3.6 % Low (05/28/23 06:12:00) Eos Auto: 0 % (05/28/23 06:12:00) Basophil Auto: 0.1 % (05/28/23 06:12:00) Neutro Absolute: 4.9 E9/L (05/28/23 06:12:00) Lymph Absolute: 0.4 E9/L Low (05/28/23 06:12:00) [place] Absolute: 0.2 E9/L (05/28/23 06:12:00) Eos Absolute: [...] O2 Sat Art: 98.8 % (05/27/23 13:39:00) sewer connector+ Art: 138 mmol/L (05/27/23 13:39:00) cK+ Art: 4.3 mmol/L (05/27/23 13:39:00) cCa2+ Art: 4.56 mg/dL (05/27/23 13:39:00) cCl- Art: 95 mmol/L Low (05/27/23 13:39:00) cGlu Art: 100 mg/dL High (05/27/23 13:39:00) cLac Art: 0.9 mmol/L (05/27/23 13:39:00) AaDO2 Art: 35.4 mmHg High (05/27/23 13:39:00) a/A (more content not included)... Normal [facility] Troponin 9 Hr.on 05-28-2023 Troponin I.cardiac [Mass/Vol] 6.00 pg/mL Low 15.90-38.4 0 [facility] Comment on above: Result Comment: The 95% CI (Confidence Interval) PPV (Positive Predictive Value) for myocardial infarction in females is 38 pg/mL, in males 51 pg/mL. The results should be used in conjunction with clinical conditions of myocardial infarction. (Access High Sensitivity Troponin I Instructions For Use, [employer], March 2018) Performed By: #### 1 [id number] #### [facility] [address] [place] [address] UA With Cult Reflexon 2022 Bilirubin Ql (U) Negative Normal Negative [facility] Comment on above: Performed By: #### 2 286415, 9853775, 8561944, 09779967, 24341953, 0006097 #### [facility] [address] [place] [address] Clarity (U) CLEAR Normal Clear [facility] Comment on above: Performed By: #### 2 981472, 9249794, 5702924, 95790488, 71996985, 0407033 #### [facility] [address] [place] [address] Color (U) YELLOW Normal Yellow [facility] Comment on above: Performed By: #### 2 029128, 7928322, 7844290, 71442112, 84242157, 6426538 #### [facility] [address] [place] [address] Epithelial cells.squamous LM.HPF (Urine sed) [#/Area] 0-2 Normal 0-2 [facility] Comment on above: Performed By: #### 2 093727, 8241914, 5269790, 44614059, 68960229, 1505610 #### [facility] [address] [place] [address] Glucose Test strip (U) [Mass/Vol] Negative Normal Negative [facility] Comment on above: Performed By: #### 2 575008, 6013466, 3486633, 11831369, 48966077, 5148514 #### [facility] [address] [place] [address] Hemoglobin Ql (U) Negative Normal Negative [facility] Comment on above: Performed By: #### 2 517833, 1516785, 5171830, 99707171, 98613231, 2845808 #### [facility] [address] [place] [address] Ketones (U) [Mass/Vol] Negative Normal Negative [facility] Comment on above: Performed By: #### 2 481141, 4775690, 5899261, 10937915, 92623119, 1097395 #### [facility] [address] [place] [address]337 Forgan.plasma/Lithi um.RBC (Bld) [Mass ratio] 0-3 Normal 0-3 [facility] Comment on above: Performed By: #### 2 929643, 9892059, 6504877, 04416924, 09484064, 7897095 #### [facility] [address] [place] [address] Nitrite Ql (U) Negative Normal Negative [facility] Comment on above: Performed By: #### 2 068856, 3459187, 3953539, 58299234, 20507784, 1109498 #### [facility] [address] [place] [address] pH (U) 6.5 [pH] Invalid Interpretation Code 5.0-9.0 [facility] Comment on above: Performed By: #### 2 004206, 7340792, 2091312, 96495659, 78959932, 7556890 #### [facility] [address] [place] [address] 97859 Protein (U) [Mass/Vol] Negative Normal Negative [facility] Comment on above: Performed By: #### 2 698078, 3188159, 7952481, 16603967, 65195923, 7936486 #### [facility] [address] [place] [address] 10166 Specific gravity (U) [Rel density] 1.010 Invalid Interpretation Code 1.005-1.03 0 [facility] Comment on above: Performed By: #### 2 792642, 9472336, 0444170, 25977960, 88391685, 6267889 #### [facility] [address] [place] [address]1847 Type of Urine collection method Random Urine Normal [facility] Comment on above: Performed By: #### 2 095744, 6522470, 7292833, 42509115, 78600882, 0061176 #### [facility] [address] [place] [address] 03395 Urobilinogen Qn (U) >=8.0 Abnormal 0.0-1.0 [facility] Comment on above: Performed By: #### 2 534852, 3351252, 3357343, 67789779, 04592155, 5651095 #### [facility] [address] [place] [address]53[address] WBC Auto Ql (U) Negative Normal Negative [facility] Comment on above: Performed By: #### 2 662134, 1696450, 5093367, 84344735, 04791389, 5604439 #### [facility] [address] [place] [address] 68331 WBC LM.HPF (Urine sed) [#/Area] 0-5 Normal 0-5 [facility] Comment on above: Performed By: #### 2 523364, 0293842, 5255486, 10072599, 44694017, 3481539 #### [facility] [address] [place] [address] [place] [address] URINALYSISOrdered By: Kojo Klein on 05-28-2023 Bilirubin Ql (U) Negative (05/28/23 12:53 AM) Normal Negative [facility] UA Auto SS Clarity (U) Clear (05/28/23 12:53 AM) Normal Clear [facility] UA Auto SS Color (U) Yellow (05/28/23 12:53 AM) Normal Yellow [facility] UA Auto SS Epithelial cells.squamous LM.HPF (Urine sed) [#/Area] 0-2 /HPF Normal 0-2/HPF [facility] UA Auto SS Glucose Test strip (U) [Mass/Vol] Negative (05/28/23 12:53 AM) Normal Negative [facility] UA Auto SS Hemoglobin Ql (U) Negative (05/28/23 12:53 AM) Normal Negative [facility] UA Auto SS Ketones (U) [Mass/Vol] Negative (05/28/23 12:53 AM) Normal Negative [facility] UA Auto SS Forgan.plasma/Lithi um.RBC (Bld) [Mass ratio] 0-3 /HPF Normal 0-3/HPF [...] (Urine sed) [#/Area] 0-5 /HPF Normal 0-5/HPF [facility] UA Auto SS eGFRon 05-28-2023 GFR/1.73 sq M.predicted among non-blacks MDRD (S/P/Bld) [Vol rate/Area] 98 mL/min/1.73 m2 Normal >=59 [facility] Comment on above: Order Comment: Order Added by Discern Expert. Result Comment: Well Treatment Offsider radha kidney disease could be indicated at eGFR's of less than 60 mL/min/1.73m2. Kidney failure is indicated at less than 15 mL/min/1.73m2. Performed By: #### 2 588830, 1195772, 2478338, 84998085, 24065287, 8081434 #### [facility] [address] [place] [address] Auto Diffon 05-27-2023 Basophils/100 WBC (Bld) 0.0 % Normal 0.0-2.0 [facility] Comment on above: Order Comment: Order Added by Emma Expert. Performed By: #### 2 106425, 36573140, 90465484, 3996236, 67858674, 7968842, 08153918 ####[facility] [address] [place] [address] Basophils/Leukocytes Auto (Bld) [Pure # fraction] 0.0 E9/L Normal 0.0-0.2 [facility] Comment on above: Order Comment: Order Added by Emma Expert. Performed By: #### 2 635931, 20139511, 77006434, 8056705, 29532725, 8937024, 85501634 ####[facility] [address] [place] [address] Eosinophils/100 WBC (Bld) 0.1 % Normal 0.0-8.0 [facility] Comment on above: Order Comment: Order Added by Emma Expert. Performed By: #### 2 085206, 72934343, 76301238, 8574355, 09193426, 5426797, 05954959 ####[facility] [address] [place] [address] Eosinophils/Leukocyt es Auto (Bld) [Pure # fraction] 0.0 E9/L Normal 0.0-0.5 [facility] Comment on above: Order Comment: Order Added by Emma Expert. Performed By: #### 2 866533, 81938954, 23000023, 9317873, 71215659, 9108418, 36798718 ####[place] [address] [place] [address] Lymphocytes/100 WBC (Bld) 2.1 % Low 14.0-50.0 [facility] Comment on above: Order Comment: Order Added by Discern Expert. Performed By: #### 2 356213, 23616656, 08781078, 0324150, 30057085, 4600266, 86818234 ####[place] [address] [place] [address] Lymphocytes/Leukocyt es Auto (Bld) [Pure # fraction] 0.2 E9/L Low 1.0-4.0 [facility] Comment on above: Order Comment: Order Added by Emma Expert. Performed By: #### 2 298991, 55923588, 86342506, 4181033, 69615161, 6582353, 13626494 ####[place] [place] [address] Monocytes/100 WBC (Bld) 4.6 % Normal 4.0-14.0 [facility] Comment on above: Order Comment: Order Added by Emma Expert. Performed By: #### 2 408940, 42391840, 73767022, 8533477, 93867937, 8041004, 80566363 ####[place] [address] [place] [address] Monocytes/Leukocytes Auto (Bld) [Pure # fraction] 0.4 E9/L Normal 0.2-1.0 [facility] Comment on above: Order Comment: Order Added by Emma Expert. Performed By: #### 2 824948, 71315716, 04629798, 5549932, 97679868, 9629146, 36775649 ####[place] [address] [place] [address] Neutrophils/100 WBC (Bld) 93.2 % High 36.0-75.0 [facility] Comment on above: Order Comment: Order Added by Discern Expert. Performed By: #### 2 742359, 99885637, 69510394, 2436882, 17158715, 8925877, 27775856 ####[facility] [address] [place] [address] Neutrophils/Leukocyt es Auto (Bld) [Pure # fraction] 8.3 E9/L High 2.0-7.5 [facility] Comment on above: Order Comment: Order Added by Discern Expert. Performed By: #### 2 731522, 70551738, 46216978, 3921581, 18051113, 1943860, 39882171 ####[facility] [address] [place] [address] BMPon 05-27-2023 Creatinine [Mass/Vol] 1.0 mg/dL Normal 0.5-1.3 [facility] Comment on above: Performed By: #### 2 735775, 19498242, 23529712, 3620068, 64421443, 2178762, 23933030 ####[facility] [address] [place] [address] Urea nitrogen [Mass/Vol] 21 mg/dL Normal 5-21 [facility] Comment on above: Performed By: #### 2 005884, 99992877, 23325092, 9499162, 71877234, 7687747, 82971067 ####[facility] [address] [place] [address] Urea nitrogen/Creatinine [Mass ratio] 21 No Units High 10-20 [facility] Comment on above: Performed By: #### 2 397676, 45753302, 12808264, 8152824, 71346164, 9471821, 69832413 ####[facility] [address] [place] [address] Anion gap [Moles/Vol] 13 mmol/L Normal 6-16 [facility] Comment on above: Performed By: #### 2 028561, 90461497, 64258758, 3485528, 02086341, 3102654, 43507390 ####[facility] [address] [place] [address] Calcium [Mass/Vol] 8.4 mg/dL Low 8.9-11.1 [facility] Comment on above: Performed By: #### 2 488502, 52895150, 21855024, 7109358, 42645382, 6763365, 18935525 ####[facility] [address] [place] [address] Chloride [Moles/Vol] 95 mmol/L Low 101-[address] [facility] Comment on above: Performed By: #### 2 400917, 27878848, 44500339, 6722415, 23727865, 1206945, 41329174 ####[facility] [address] [place] [address] CO2 [Moles/Vol] 31 mmol/L Normal 21-31 [facility] Comment on above: Performed By: #### 2 964721, 67973026, 11909543, 3731586, 33156147, 5043165, 69547948 ####[facility] [address] [place] [address] Glucose [Mass/Vol] 98 mg/dL Normal 55-199 [facility] Comment on above: Result Comment: If t his glucose result represents a fasting glucose, interpretation should refer to the following reference range: 55-99 mg/dL Performed By: #### 2 829934, 58370580, 51578850, 5103184, 59500943, 8214293, 79883336 ####[facility] [address] [place] [address] Potassium [Moles/Vol] 4.4 mmol/L Normal 3.5-5.3 [facility] Comment on above: Performed By: #### 2 417204, 55418965, 31882026, 7614765, 56385969, 9462942, 11150789 ####[facility] [address] [place] [address] Sodium [Moles/Vol] 135 mmol/L Normal 135-145 [facility] Comment on above: Performed By: #### 2 482163, 85784509, 52367786, 1218499, 95284446, 2589776, 40034022 ####[facility] [address] [place] [address] BNPon 05-27-2023 Int Ctr BNP Pass Normal [facility] Comment on above: Performed By: #### 2 152495, 92797578, 97763825, 6270499, 50624765, 2203330, 63680026 ####[facility] [address] [place] [address] Natriuretic peptide B (Bld) [Mass/Vol] 81 pg/mL High 5-80 [facility] Comment on above: Performed By: #### 2 819919, 83488212, 52203198, 7183237, 16904455, 2326328, 82991805 ####[facility] [address] [place] [address] Blood Gas Art, with Lytes, G myrna, [place] 05-27-2023 a/A Ratio Art 72.70 % Normal >=0.80 [facility] Comment on above: Performed By: #### 4 91720717 ####[facility] [address] [place] [address] AaDO2 Art 35.4 mmHg High 5.0-15.0 [facility] Comment on above: Performed By: #### 4 35248377 ####[facility] [address] [place] [address] Allens Test Not Applicable Normal [facility] Comment on above: Performed By: #### 4 11538044 ####[facility] [address] [place] [address] Base Excess Arterial 9.7 mmol/L Normal >=2.8 [facility] Comment on above: Performed By: #### 4 05901803 ####[facility] [address] [place] [address] cCa2+ Art 4.56 mg/dL Normal 4.40-5.30 [facility] Comment on above: Performed By: #### 4 91592375 ####[facility] [address] [place] [address] cCl- Art 95.0 mmol/L Low 101.0-111. 0 [facility] Comment on above: Performed By: #### 4 90649734 ####[address] [place] [address] cGlu Art 100 mg/dL High 55-99 [facility] Comment on above: Performed By: #### 4 08703215 ####[address] [address] cK+ Art 4.3 mmol/L Normal 3.5-5.3 [facility] Comment on above: Performed By: #### 4 [id number] ####[address] [address] cLac Art .9 mmol/L Normal .5-2.2 [facility] Comment on above: Performed By: #### 4 [id number] ####[address] [address] sewer connector+ Art 138.0 mmol/L Normal 135.0-145. 0 [facility] Comment on above: Performed By: #### 4 [id number] ####[address] [place] [address] Drawn by trs Invalid Interpretation Code [facility] Comment on above: Performed By: #### 4 [id number] ####[address] [address] FCOHb Art 1.6 % Normal 1.5-4.9 [facility] Comment on above: Result Comment: Refe rence range Nonsmoker <1.5% Smoker <5.0% Heavy Smoker <9.0% Performed By: #### 4 [id number] ####[address] [place] [address] FIO2 BG 21.0 Invalid Interpretation Code [facility] Comment on above: Performed By: #### 4 [id number] ####[address] [address] FMetHb Art 0.3 % Normal 0.0-1.9 [facility] Comment on above: Performed By: #### 4 [id number] ####[address] [address] FO2Hb Art 97.0 % Normal 93.0-100.0 [facility] Comment on above: Performed By: #### 4 [id number] ####[address] [address] HCO3 (Bld) [Moles/Vol] 33.4 mmol/L High 22.0-26.0 [facility] Comment on above: Performed By: #### 4 [id number] ####[address] [address] Hemoglobin (Bld) [Mass/Vol] 11.7 g/dL Low 12.0-17.0 [facility] Comment on above: Performed By: #### 4 [id number] ####[address] [address] Oxygen saturation in Blood 98.8 % Normal 95.0-100.0 [facility] Comment on above: Performed By: #### 4 [id number] ####[address] [address] P CO2 Arterial 58.0 mmHg High 35.0-45.0 [facility] Comment on above: Performed By: #### 4 [id number] ####[address] [address] P O2 Arterial 94.5 mmHg Normal 80.0-100.0 [facility] Comment on above: Performed By: #### 4 [id number] ####[address] [address] pH Arterial 7.404 Normal 7.350-7.45 0 [facility] Comment on above: Performed By: #### 4 [id number] ####[facility] [id number] Sample Site R Radial Normal [facility] Comment on above: Performed By: #### 4 [id number] ####[facility] [address] [place], [place] [address] Sample Type Arterial Draw Normal [facility] Comment on above: Performed By: #### 4 [id number] ####[facility] [address] CBC w/ Auto Diffon 3 Erythrocyte distribution width (RBC) [Ratio] 13.1 % Normal 10.9-14.2 [facility] Comment on above: Performed By: #### 2 034786, 65314871, 19645854, 7614422, 02303996, 0902309, 81515750 ####[address] [place] [address] Hematocrit (Bld) [Volume fraction] 35.4 % Low 37.7-49.0 [facility] Comment on above: Performed By: #### 2 204492, 87238445, 52266307, 0769884, 57727457, 9268614, 93386543 ####[address] [place] [address] Hemoglobin (Bld) [Mass/Vol] 11.8 g/dL Low 13.5-17.5 [facility] Comment on above: Performed By: #### 2 669322, 64467029, 96387919, 7380131, 23422210, 9416166, 06453878 ####[facility] [address] [place] [address] MCH (RBC) [Entitic mass] 29.2 pg Normal 27.0-34.0 [facility] Comment on above: Performed By: #### 2 720116, 19018319, 16290425, 9411465, 02804350, 4859188, 84118545 ####[address] [place] [address] MCHC (RBC) [Mass/Vol] 33.5 g/dL Normal 31.4-36.0 [facility] Comment on above: Performed By: #### 2 372331, 20371838, 83660955, 3358218, 27175522, 8205147, 40352899 ####[address] [place] [address] MCV (RBC) [Entitic vol] 87.2 fL Normal 80.0-100.0 [facility] Comment on above: Performed By: #### 2 418853, 60184021, 55720643, 7938654, 40833558, 7912298, 12711287 ####[address] [place] [address] Platelet mean volume (Bld) [Entitic vol] 8.1 fL Normal 6.4-10.8 [facility] Comment on above: Performed By: #### 2 559352, 90644882, 10396889, 3233455, 40961931, 8419203, 73878141 ####[address] [address] Platelets (Bld) [#/Vol] 123.0 E9/L Low 150.0-500. 0 [facility] Comment on above: Performed By: #### 2 398997, 70788370, 69376219, 8459362, 24772950, 1709723, 18274569 ####[address] [place] [address] RBC (Bld) [#/Vol] 4.1 E12/L Low 4.3-5.9 [facility] Comment on above: Performed By: #### 2 495207, 95659862, 77907093, 1643254, 21191800, 6500219, 22999228 ####[address] [address] WBC corrected for nucl RBC Auto (Bld) [#/Vol] 8.9 E9/L Normal 4.0-11.0 [facility] Comment on above: Performed By: #### 2 810872, 18617478, 48212987, 1574366, 28896787, 0628070, 16574728 ####[facility] [address] [place] [address] CHEMISTRYOrdered By: SYSTEM SYSTEM on 05-27-2023 Troponin I.cardiac [Mass/Vol] 6.00 pg/mL Low 15.90 - 38.40 pg/mL [facility] Remisol Comment on above: Interpretive Data: T he 95% CI (Confidence Interval) PPV (Positive Predictive Value) for myocardial infarction in females is 38 pg/mL, in males 51 pg/mL. The results should be used in conjunction with clinical conditions of myocardial infarction. (Tactiga High Sensitivity Troponin I Instructions For Use, [employer], March 2018) Troponin I.cardiac [Mass/Vol] 6.00 pg/mL Low 15.90 - 38.40 pg/mL [facility] Remisol Comment on above: Interpretive Data: T he 95% CI (Confidence Interval) PPV (Positive Predictive Value) for myocardial infarction in females is 38 pg/mL, in males 51 pg/mL. The results should be used in conjunction with clinical conditions of myocardial infarction. (Tactiga High Sensitivity Troponin I Instructions For Use, [employer], March 2018) Troponin I.cardiac [Mass/Vol] 6.40 pg/mL Low 15.90 - 38.40 pg/mL [facility] Remisol Comment on above: Interpretive Data: T he 95% CI (Confidence Interval) PPV (Positive Predictive Value) for myocardial infarction in females is 38 pg/mL, in males 51 pg/mL. The results should be used in conjunction with clinical conditions of myocardial infarction. (Access High Sensitivity Troponin I Instructions For Use, [employer], March 2018) CHEMISTRYOrdered By: Comfort wood on 05-27-2023 Natriuretic peptide B (Bld) [Mass/Vol] 81 pg/mL High 5 - 80 pg/mL [facility] HemeManSS COAGULATIONOrdered By: Lori Geronimo on 05-27-2023 aPTT Coag (PPP) [Time] 27.2 s Normal 25.1 - 36.5 second(s) [facility] Auto Coag Comment on above: Interpretive Data: P ericaer 15 days - 4 weeks 1 - 5 months 6 - 11 months 1 - 5 years 6 - 10 years 11 - 17 years PTT Mean: 35.4 (27.6-45.6) Mean: 33.5 (24.8-40.7) Mean: 32.4 (25.1-40.7) Mean: 31.6 (24.0-39.2) Mean: 31.6 (26.9-38.7) Mean: 31.0 (24.6-38.4) Pediatric Reference ranges were obtained from a study by vicki Eubanks alElis prepared from 1437 samples obtained at 7 different centers using the same coagulation reagent and instrumentation as [facility]. Currently there are no coagulation studies available worldwide for children to 14 days, and no normal ranges. Heparin therapeutic range (represented by Anti-Factor Xa activity of 0.2 - 0.4 U/mL) corresponds to PTT of 56.6 - 109.0 sec. INR Coag (PPP) [Relative time] 1.3 {INR} Invalid Interpretation Code [facility] Auto Coag Comment on above: Interpretive Data: I NR results are specifically intended to assess patients stabilized on long-term Anticoagulation therapy suggested INR s Less Intensive Anticoagulation 2.0 3.0 Conventional Range 3.0 4.5 PT Coag (PPP) [Time] 14.2 s High 9.4 - 1 2.5 second(s) [facility] Auto Coag Comment on above: Interpretive Data: 1 5 days - 4 weeks 1 - 5 months 6 -11 months 1-5 years 6-10 years 11 -17 years Mean: 11.2 (9.5-12.6) Mean: 11.0 (9.7-12.8) Mean: 11.0 (9.8-13.0) Mean: 11.3 (9.9-13.4) Mean: 11.7 (10.0-14.6) Mean: 11.8 (10.0 - 14.1) Pediatric Reference ranges were obtained from a study by julito Eubanks prepared from 1437 samples obtained at 7 different centers using the same coagulation reagent and instrumentation as [facility]. Currently there are no coagulation studies available worldwide for children to 14 days, and no normal ranges. Consent for Treatmenton 05-03 Consent for Treatment [id number] Normal [facility] ED Clinical Summaryon 2022 ED Clinical Summary (Inserted Image. Flora ble to display) [id number] ED Clinical Summary Person Information Name: YENI CONNOR/[facility] Age: 63 Years : 1960 Sex: Male Language: Citizen Of [place] PCP: SAMMY AGUILERA DO Marital Status: Visit Id: Visit Reason: Cough; Dizziness; Weakness or fatigue; WEAKNESS, DIZZINESS Speciality: Acuity: 1 Enc Type: Observation Med Service: Emergency Arrival: 05/27/2023 13:12:53 Discharge: LOS: 000 03:47 Checkin: 05/27/2023 13:12:53 Checkout: 05/27/2023 16:59:23 Dispo Type: Admitted as IP to this [facility] EVENTS: Event Name Event Status [...] 16:40:23 Patient Care Request 05/27/2023 16:40:24 ADDRESS: [address] [place] [id number] PHYS DOC NOTES: MEDICAL INFORMATION: Prescriptions Given: [...] DIAGNOSIS: Acute hypoxemic respiratory failure; COVID-19 Normal [facility] ED Note-Physicianon 05-27-20 23 ED Note-Physician Basic [...] and Complexity of Problems Differential Diagnosis: [] [facility] Data External documents reviewed: [] My EKG [...] Therapy PT & PTT Rapid COVID Antigen ([facility]) Saline Lock Insert Troponin 0 Hr. Troponin 3 Hr. Troponin 6 Hr. Troponin 9 Hr. XR Chest Single View Disposition Plan Discharge Prescription List Prescriptions No active prescription medications Follow-up No qualifying data available Attestation Patient seen and evaluated by the physician shipping assistant. Attending physician was present in the emergency department and supervised care. This visit was performed by both the physician and an APC. I performed all aspects of the MDM as documented. This report was transcribed using voice recognition software. Every effort was made to ensure accuracy, however, inadvertently computerized pediatric dentist mistakes may be present. Appropriate healthcare PPE was used in evaluating this patient. The patient was placed in a mask. The healthcare provider was wearing mask, gloves, and utilizing proper hand hygiene. All equipment was properly cleansed Problem List/Past Medical History Ongoing Elevated PSA Erectile (more content not included)... Normal [facility] Comment on above: Result Comment: Elec tronically Signed By: Barney Duncan PA-C\.br\Date and Time Signed: 05/27/23 16:21 EDT\.br\Electronically Co-Signed By: Samy Benjamin DO\.br\Date and Time Co-Signed: 05/27/23 17:04 EDT ED Patient Education Noteon 05-27-2023 ED Patient Education Note Normal [facility] ED Patient Summaryon 023 ED Patient Summary (Inserted Image. Flora ble to display) [address] [place] [id number] Patient Discharge Instructions Person Information Name: YENI CONNOR Age: 63 Years Arrival Date: 05/27/2023 13:12:53 Discharge Diagnosis: Acute hypoxemic respiratory failure; COVID-19 Primary Care Physician: SAMMY AGUILERA DO Provider Information Primary Provider: Samy Benjamin DO Advanced Delivery Recruiter:Barney Duncan PA-C The exam and treatment you received in the Emergency Department were for an urgent problem and are not intended as complete care. It is important that you follow up with a doctor, nurse practitioner, or physician?s shipping assistant for ongoing care. If your symptoms become worse or you do not improve as expected and you are unable to reach your usual health care provider, you should return to the Emergency Department. We are available 24 hours a day. GEETA YENI Swapnil has been given the following list of [...] opioids can be used to help relieve vhmdhgoi-yn-vlxgcl pain and are often prescribed following a [...] guidance from the Food and Drug Administration (www.fda.gov/Drugs/Resources ForYou). ? Visit www.cdc.gov/drugoverdose to learn about the risks of opioids abuse and overdose. ? If you believe you may be struggling with addiction, tell your health career resource specialist and ask for guidance or call [facility] National Helpline at 4-751-965-UZTT. y Source: US Department of Health and Human Services/Center for Disease Control & Prevention [facility] Medications (more content not included)... Normal [facility] FT Blood GasesOrdered By: Reynold Hu on 05-27-2023 a/A Ratio Art 72.70 % Normal >=0.80% FT Resp Auto SS AaDO2 Art 35.4 mm[Hg] High 5.0 - 15.0 mmHg FT Resp Auto SS Allens Test Not Applicable (05/27/23 1:39 PM) Normal [facility] Resp Auto SS Base Excess Arterial 9.7 mmol/L Normal >=2.8mm ol/ L FT Resp Auto SS cCa2+ Art 4.56 mg/dL Normal 4.40 - 5.30 mg/dL [facility] Resp Auto SS cCl- Art 95.0 mmol/L Low 101.0 - 111.0 mmol/L [facility] Resp Auto SS cGlu Art 100 mg/dL High 55 - 99 mg/dL [facility] Resp Auto SS cK+ Art 4.3 mmol/L Normal 3.5 - 5.3 mmol/L [facility] Resp Auto SS cLac Art 0.9 mmol/L Normal 0.5 - 2.2 mmol/L [facility] Resp Auto SS sewer connector+ Art 138.0 mmol/L Normal 135.0 - 145.0 mmol/L [facility] Resp Auto SS Drawn by trs Invalid Interpretation Code [facility] Resp Auto SS FCOHb Art 1.6 % Normal 1.5 - 4.9 % [facility] Resp Auto SS Comment on above: Interpretive Data: R eference range Nonsmoker <1.5% Smoker <5.0% Heavy Smoker <9.0% FMetHb Art 0.3 % Normal 0.0 - 1.9 % [facility] Resp Auto SS FO2Hb Art 97.0 % Normal 93.0 - 100.0 % [facility] Resp Auto SS HCO3 (Bld) [Moles/Vol] 33.4 mmol/L High 22.0 - 26.0 mmol/L [facility] Resp Auto SS Hemoglobin (Bld) [Mass/Vol] 11.7 g/dL Low 12.0 - 17.0 gm/dL [facility] Resp Auto SS P CO2 Arterial 58.0 mm[Hg] High 35.0 - 45.0 mmHg [facility] Resp Auto SS P O2 Arterial 94.5 mm[Hg] Normal 80.0 - 100.0 mmHg [facility] Resp Auto SS pH (Bld) 7.404 [pH] Normal 7.350 - 7.450 [facility] Resp Auto SS Sample Site R Radial (05/27/23 1:39 PM) Normal [facility] Resp Auto SS Sample Type Arterial Draw (05/27/23 1:39 PM) Normal [facility] Resp Auto SS Sodium [Moles/Vol] 21.0 mmol/L Invalid Interpretation Code [facility] Resp Auto SS Influenza A&B Agon 3 Influenzae A Ag Negative Normal Negative [facility] Comment on above: Performed By: #### 2 335030, 0218994, 4761784, 60739796, 58435948, 3160379 #### [facility] [address] [place] [address] Influenzae B Ag Negative Normal Negative [facility] Comment on above: Result Comment: Test sensitivity and specificity vary for age group, specimen type, antigen types, and prevalence of disease. Test results must be evaluated in conjunction with other clinical data available to the physician. Individuals who received nasally administered Influenza A vaccine may have positive test results up to 3 days after vaccination. Performed By: #### 2 590284, 8599619, 1501491, 90198126, 26422666, 1401448 #### [facility] [address] [place] [address] MICRO OTHER TESTSOrdered By: Lori Geronimo on 05-27-2023 Influenzae A Ag Negative (05/27/23 1:47 PM) Normal Negative [facility] Man Sero Influenzae B Ag Negative 1 (05/27/23 1:47 PM) Normal Negative [facility] Man Sero Comment on above: Interpretive Data: [...] NEG Ctl Pass (05/27/23 1:47 PM) Normal [facility] Man Sero Rapid COV Int POS Ctl Pass (05/27/23 1:47 PM) Normal [facility] Sero SARS-CoV+SARS-CoV-2 (COVID-19) Ag IA.rapid Ql (Resp) Detected 16 *ABN* (05/27/23 1:47 PM) Invalid Interpretation Code Not Detected [facility] Man Sero Comment on above: Interpretive Data: Johanny merino Red Ambiental Veritor System for Rapid Detection of SARS-CoV-2 [...] revoked sooner. Monitor Recordon 05-27-2023 Monitor Record [id number] Normal [facility] No Panel InformationOrdered By: Marie Macario on 05-27-2023 Blood Culture Charcoal Staphylococcus species coagulase negative In 2 of 2 blood culture bottles drawn. Isolated from aerobic and anaerobic bottles Preliminary result of gram positive cocci in clusters called to Dr. Spivey 05/28/2023 12:28:37 by . Also alerted that his second set of blood cultures looks to be a different organism. [facility] Blood Culture Charcoal Gram Positive Rods resembling diphtheroids and Staphylococcus species coagulase negative In 2 of 2 blood culture bottles drawn. Isolated from aerobic and anaerobic bottles Preliminary gram stain result of gram positive rods given to Dr. Spivey 05/28/2023 12:28:37. [facility] PT & PTTon 05-27-2023 aPTT Coag (PPP) [Time] 27.2 second(s) Normal 25.1-36.5 [facility] Comment on above: Result Comment: Para meter [...] the same coagulation reagent and instrumentation as [facility]. Currently there are no coagulation studies available worldwide for children to 14 days, and no normal ranges. Heparin therapeutic range (represented by Anti-Factor Xa activity of 0.2 - 0.4 U/mL) corresponds to PTT of 56.6 - 109.0 sec. Performed By: #### 2 791332, 36010254, 34787288, 8926598, 83407016, 3995636, 02315014 ####[facility] [address] [place] [address] INR Coag (PPP) [Relative time] 1.3 {INR} Invalid Interpretation Code [facility] Comment on above: Result Comment: INR results are specifically intended to assess patients stabilized on long-term Anticoagulation therapy suggested INR?s ?Less Intensive Anticoagulation? 2.0 ? 3.0 Conventional Range 3.0 ? 4.5 Performed By: #### 2 934393, 99379995, 06800544, 2691381, 35340585, 7452669, 43230437 ####[facility] [address] [place] [address] PT Coag (PPP) [Time] 14.2 second(s) High 9.4-12.5 [facility] Comment on above: Result Comment: 15 d [...] the same coagulation reagent and instrumentation as [facility]. Currently there are no coagulation studies available worldwide for children to 14 days, and no normal ranges. Performed By: #### 2 539873, 97859844, 09236268, 1928878, 57722493, 4080523, 15378399 ####[facility] [address] [place] [address] Pre-Arrival Noteon 3 Pre-Arrival Note Pre-Arrival Summary Name: , zunildasariah Current Date: 05/27/2023 13:37:03 EDT Gender: Male Date of : Age: 63 Pre-Arrival Type: EMS ETA: 05/27/2023 13:34:00 EDT Primary Care Physician: Presenting Problem: weakness, dizziness Pre-Arrival User: Tiffanie Rocha RN Referring Source: Location: Completion Date/Time: 05/27/2023 13:05:[address] [facility] Emergency Department Pre-Hospital Report Form Vital Signs: 99/65 80 18 99 Pre-Hospital Report: weakness, dizziness, hx pancan. Treatment in Route: Response to Treatment: Misc. Issues: Normal [facility] Rapid COVID Antigen ([facility])on 05-27-2023 Rapid COV Int NEG Ctl Pass Normal [facility] Comment on above: Performed By: #### 2 763126, 8789282, 7046142, 64031793, 28099121, 1792430 #### [facility] [address] [place] [address] Rapid COV Int POS Ctl Pass Normal [facility] Comment on above: Performed By: #### 2 757094, 7943282, 6460923, 32038503, 17280709, 5642638 #### [facility] [address] [place] [address] SARS-CoV+SARS-CoV-2 (COVID-19) Ag IA.rapid Ql (Resp) Detected Abnormal Not Detected [facility] Comment on above: Result Comment: The [employer] Software? System for Rapid Detection of SARS-CoV-2 is [...] or revoked sooner. Performed By: #### 2 294890, 1331458, 1549453, 68421304, 62710158, 6561290 #### [facility] [address] [place] [address] [facility] Reportability Response - Public Health {[id number]}XML Normal [facility] Troponin 0 Hr.on 05-27-2023 Troponin I.cardiac [Mass/Vol] 6.90 pg/mL Low 15.90-38.4 0 [facility] Comment on above: Result Comment: The 95% CI (Confidence Interval) PPV (Positive Predictive Value) for myocardial infarction in females is 38 pg/mL, in males 51 pg/mL. The results should be used in conjunction with clinical conditions of myocardial infarction. (Access High Sensitivity Troponin I Instructions For Use, [employer], March 2018) Performed By: #### 2 007682, 48367045, 86733696, 2583220, 32441741, 9043815, 59412126 ####[facility] [address] [place] [address] Troponin 3 Hr.on 05-27-2023 Troponin I.cardiac [Mass/Vol] 6.40 pg/mL Low 15.90-38.4 0 [facility] Comment on above: Result Comment: The 95% CI (Confidence Interval) PPV (Positive Predictive Value) for myocardial infarction in females is 38 pg/mL, in males 51 pg/mL. The results should be used in conjunction with clinical conditions of myocardial infarction. (Access High Sensitivity Troponin I Instructions For Use, [employer], March 2018) Performed By: #### 2 947162, 3775344, 8325759, 51974706, 57615658, 4069403 #### [facility] [address] [place] [address] Troponin 6 Hr.on 05-27-2023 Troponin I.cardiac [Mass/Vol] 6.00 pg/mL Low 15.90-38.4 0 [facility] Comment on above: Result Comment: The 95% CI (Confidence Interval) PPV (Positive Predictive Value) for myocardial infarction in females is 38 pg/mL, in males 51 pg/mL. The results should be used in conjunction with clinical conditions of myocardial infarction. (Access High Sensitivity Troponin I Instructions For Use, [place], March 2018) Performed By: #### 2 649300, 0561278, 8339695, 43083856, 44517440, 9749672 #### [facility] [address] [place] [address] XR Chest Single Viewon 05-27 XR Chest [...] Attila Pink DO Transcribed by: MONSTER Technologist: CC Technical Comments Radiation Dose: Ka,r in mGy = na DAP = na Normal [facility] eGFRon 05-27-2023 GFR/1.73 sq M.predicted among non-blacks MDRD (S/P/Bld) [Vol rate/Area] 84 mL/min/1.73 m2 Normal >=59 [facility] Comment on above: Order Comment: Order added by Discern Expert. Result Comment: Well Treatment Offsider radha kidney disease could be indicated at eGFR's of less than 60 mL/min/1.73m2. Kidney failure is indicated at less than 15 mL/min/1.73m2. Performed By: #### 2 556026, 21025829, 67075435, 9481202, 21390848, 3817727, 03458421 ####[facility] [address] [place] [address] Screenson 03-18-2023 Screens [id number]#[id number]:127 Normal [facility] Screens [id number]#[id number]:127 Normal [facility] CHEMISTRYOrdered By: SYSTEM SYSTEM on 03-17-2023 Prostate specific Ag [Mass/Vol] ng/mL Normal 0.1 - 3.5 ng/mL [facility] Remisol Consent for Treatmenton 03-02 Consent for Treatment [id number]#[id number]:127 Normal [facility] PSA Totalon 03-17-2023 Prostate specific Ag [Mass/Vol] ng/mL Normal 0.1-3.5 [facility] Comment on above: Result Comment: The concentration of PSA determined by different manufacturers can vary due to differences in assay methods and reagent specificity. Values obtained from different assay methods cannot be used interchangeably. The methodology used for this result was chemiluminescence using [employer]'s Access Hybritech PSA reagent. Performed By: #### 1 [id number] #### [facility] [address] [place] [address] Patient Educationon 03-17-20 Patient Education Obstetrics and Gynec ology Kegel Exercises Kegel exercises can help strengthen [...] provider. Document Revised: 11/27/2021 Document Reviewed: 11/27/2021 [employer] Patient Education ? 2022 [employer]. [facility] Urology Office/Clinic Noteon 03-17-2023 Urology Office/Clinic Note [...] malignant neoplasm of prostate) TRUS/bx 02/29/20 - [place] 7 (3+4) x 3 cores and [place] 6 (3+3) x 5 cores. S/p open radical prostatectomy (nerve sparing) by DLS and PRW 05/09/20 - pT2, pNX Prostate adenocarcinoma, grade group 2, tertiary pattern 5 <5%. Neg margins. PSA: 05/06/21 - 0.05 11/04/21 - 0.05 11/30/22 - <0.13 03/12/23 - <0.13 Discussed potential slight elevation is PSA, discussed implications. Advised pt to go to [facility] for blood work for a more sensitive [...] product 7-8 yrs ago. No hx of PA IAN 0 Pt was to start taking [...] the patient. Follow-up With When Contact Information Kayla Torres MD, URL, URO In 1 year Additional Instructions: w/PSA Patient Education Kegel Rakesh Francis, Yvette Lira, personally scribed for Dr. Torres on 03/17/2023 11:23:54. . Documentation recorded by the scribe, Yvette Lira, accurately reflects the services(s) I performed and [...] retropubic prostatectomy (more content not included)... Normal [facility] Comment on above: Result Comment: Elec tronically Signed By: Kayla Torres MD\.br\Date and Time Signed: 03/17/23 21:48 EDT\.br\Electronically Co-Signed By: Yvette Lira\.br\Date and Time Co-Signed: 03/17/23 11:24 EDT Lab Report[facility] 03-14-2023 Lab Reports [id number] Normal [facility] CBC AUTO DIFFon 12-10-2021 BASO # 0.0 103/ul Normal 0.0-0.1 [facility] Comment on above: Performed By: #### C BC #### [facility] [address] [address] [address] Nida Castillo Basophils/100 WBC (Bld) 0.6 % Normal 0.2-2.0 [facility] Comment on above: Performed By: #### C BC #### [facility] [address] [address] [address] Nida Castillo EO # 0.1 103/ul Normal 0.0-0.7 [facility] Comment on above: Performed By: #### C BC #### [facility] [address] [address] [address] Nida Castillo Eosinophils/100 WBC (Bld) 2.3 % Normal 0.9-7.0 [facility] Comment on above: Performed By: #### C BC #### [facility] [address] [address] [address] Nida Castillo Erythrocyte distribution width (RBC) [Ratio] 13.6 % Normal 11.0-15.0 [facility] Comment on above: Performed By: #### C BC #### [facility] [address] [address] [address] Nida Castillo Hematocrit (Bld) [Volume fraction] 39.7 % Critically low 42.0-54.0 [facility] Comment on above: Performed By: #### C BC #### [facility] [address] [address] [address] Nida Castillo Hemoglobin (Bld) [Mass/Vol] 12.4 g/dL Critically low 14.0-18.0 [facility] Comment on above: Performed By: #### C BC #### [facility] [address] [place] [address] Dr. Nida Castillo IG # 0.01 10e3/ul Normal 0.00-0.03 [facility] Comment on above: Performed By: #### C BC #### [facility] [address] [place] [address] Dr. Nida Castillo IG % 0.3 % Normal 0.0-0.5 [facility] Comment on above: Performed By: #### C BC #### [facility] [address] [place] [address] Dr. Nida Castillo LYMPH # 0.6 103/ul Critically low 1.2-3.8 [facility] Comment on above: Performed By: #### C BC #### [facility] [address] [place] [address] Dr. Nida Castillo Lymphocytes/100 WBC (Bld) 17.7 % Critically low 20.5-60.0 [facility] Comment on above: Performed By: #### C BC #### [facility] [address] [place] [address] Dr. Nida Castillo MANUAL DIFF REQ NO Normal [facility] Comment on above: Performed By: #### C BC #### [facility] [address] [place] [address] Dr. Nida Castillo MCH (RBC) [Entitic mass] 28.1 pg Normal 25.9-34.0 [facility] Comment on above: Performed By: #### C BC #### [facility] [address] [place] [address] Dr. Nida Castillo MCHC (RBC) [Mass/Vol] 31.2 g/dL Normal 29.9-35.2 [facility] Comment on above: Performed By: #### C BC #### [facility] [address] [place] [address] Dr. Nida Castillo MCV (RBC) [Entitic vol] 90.0 fL Normal 80.0-94.0 [facility] Comment on above: Performed By: #### C BC #### [facility] [address] [place] [address] Dr. Nida Castillo MONO # 0.2 103/ul Critically low 0.3-0.8 [facility] Comment on above: Performed By: #### C BC #### [facility] [address] [place] [address] Dr. Nida Castillo Monocytes/100 WBC (Bld) 6.8 % Normal 1.7-12.0 [facility] Comment on above: Performed By: #### C BC #### [facility] [address] [place] [address] Dr. Nida Castillo NEUT # 2.5 103/ul Normal 1.4-6.5 [facility] Comment on above: Performed By: #### C BC #### [facility] [address] [place] [address] Dr. Nida Castillo Neutrophils/100 WBC (Bld) 72.3 % Normal 43.0-75.0 [facility] Comment on above: Performed By: #### C BC #### [facility] [address] [place] [address] Dr. Nida Castillo Platelet mean volume (Bld) [Entitic vol] 10.7 fL Normal 9.5-13.5 [facility] Comment on above: Performed By: #### C BC #### [facility] [address] [place] [address] Dr. Nida Castillo PLT 177 103/ul Normal 150-450 [facility] Comment on above: Performed By: #### C BC #### [facility] [address] [place] [address] Dr. Nida Castillo RBC 4.41 106/ul Critically low 4.70-6.10 [facility] Comment on above: Performed By: #### C BC #### [facility] [address] [place] [address] Dr. Nida Castillo WBC 3.5 103/ul Critically low 4.0-11.0 [facility] Comment on above: Performed By: #### C BC #### [facility] [address] [place] [address] Dr. Nida Castillo LIPID PROFILEon 12-10-2021 CHOL-HDL RATIO NORM SEE BELOW Normal [facility] Comment on above: Result Comment: 3.3 - 4.4 LOW RISK 4.4 - 7.1 AVERAGE RISK 7.1 - 11.0 MODERATE RISK >11.0 HIGH RISK Performed By: #### L IPID, CMP #### [facility] [address] [address] [address] Nida Castillo Cholesterol [Mass/Vol] 204 mg/dL Critically high <=200 [facility] Comment on above: Performed By: #### L IPID, CMP #### [facility] [address] [address] [address] Nida Castillo Cholesterol in HDL [Mass/Vol] 80 mg/dL Critically high 40-60 [facility] Comment on above: Performed By: #### L IPID, CMP #### [facility] [address] [address] [address] Nida Castillo Cholesterol in LDL [Mass/Vol] 112.8 mg/dL Normal [facility] Comment on above: Performed By: #### L IPID, CMP #### [facility] [address] [address] [address] Nida Castillo Cholesterol.total/Ch olesterol in HDL [Mass ratio] 2.6 {ratio} Normal [facility] Comment on above: Performed By: #### L IPID, CMP #### [facility] [address] [address] [address] Nida Castillo HDL NORMAL > or = 60 mg/dl - LO W CARDIOVASCULAR RISK <40 mg/dl - HIGH CARDIOVASCULAR RISK Normal [facility] Comment on above: Performed By: #### L IPID, CMP #### [facility] [address] [address] [address] Nida Castillo LDL CALC NORMAL SEE BELOW Normal [facility] Comment on above: Result Comment: <100 mg/dl OPTIMAL 100 - 129 mg/dl NEAR OR ABOVE OPTIMAL 130 - 159 mg/dl BORDERLINE HIGH 160 - 189 mg/dl HIGH >190 mg/dl VERY HIGH Performed By: #### L IPID, CMP #### [facility] [address] [address] [address] Nida Castillo Triglyceride [Mass/Vol] 56 mg/dL Normal <=150 [facility] Comment on above: Performed By: #### L IPID, CMP #### [facility] [address] [place] [address] Dr. Nida Castillo VLDL CALC 11.2 mg/dL Normal [facility] Comment on above: Performed By: #### L IPID, CMP #### [facility] [address] [place] [address] Dr. Nida Castillo PROF 14(COMP METB)on 022 Albumin [Mass/Vol] 3.8 g/dL Normal 3.4-5.0 [facility] Comment on above: Performed By: #### L IPID, CMP #### [facility] [address] [place] [address] Dr. Nida Castillo Albumin/Globulin [Mass ratio] 1.1 {ratio} Normal [facility] Comment on above: Performed By: #### L IPID, CMP #### [facility] [address] [place] [address] Dr. Nida Castillo ALP [Catalytic activity/Vol] 74 U/L Normal 46-116 [facility] Comment on above: Performed By: #### L IPID, CMP #### [facility] [address] [place] [address] Dr. Nida Castillo ALT [Catalytic activity/Vol] 23 U/L Normal 16-63 [facility] Comment on above: Performed By: #### L IPID, CMP #### [facility] [address] [place] [address] Dr. Nida Castillo Anion gap [Moles/Vol] 8.9 mmol/L Normal [facility] Comment on above: Performed By: #### L IPID, CMP #### [facility] [address] [place] [address] Dr. Nida Castillo AST [Catalytic activity/Vol] 20 U/L Normal 15-37 [facility] Comment on above: Performed By: #### L IPID, CMP #### [facility] [address] [place] [address] Dr. Nida Castillo Bilirubin [Mass/Vol] 0.4 mg/dL Normal 0.2-1.0 [facility] Comment on above: Performed By: #### L IPID, CMP #### [facility] [address] [place] [address] Dr. Nida Castillo Calcium [Mass/Vol] 9.1 mg/dL Normal 8.5-10.1 [facility] Comment on above: Performed By: #### L IPID, CMP #### [facility] [address] [place] [address] Dr. Nida Castillo Chloride [Moles/Vol] 102 mmol/L Normal 98-107 [facility] Comment on above: Performed By: #### L IPID, CMP #### [facility] [address] [place] [address] Dr. Nida Castillo CO2 [Moles/Vol] 34.4 mmol/L Critically high 21.0-32.0 [facility] Comment on above: Performed By: #### L IPID, CMP #### [facility] [address] [place] [address] Dr. Nida Castillo Creatinine [Mass/Vol] 0.98 mg/dL Normal 0.70-1.30 [facility] Comment on above: Performed By: #### L IPID, CMP #### [facility] [address] [place] [address] Dr. Nida Castillo EGFR-AF UKRAINIAN >60 Normal >=60 [facility] Comment on above: Performed By: #### L IPID, CMP #### [facility] [address] [place] [address] Dr. Nida Castillo EGFR-NON AF UKRAINIAN >60 Normal >=60 [facility] Comment on above: Performed By: #### L IPID, CMP #### [facility] [address] [place] [address] Dr. Nida Castillo Globulin (S) [Mass/Vol] 3.4 g/dL Normal [facility] Comment on above: Performed By: #### L IPID, CMP #### [facility] [address] [place] [address] Dr. Nida Castillo Glucose [Mass/Vol] 88 mg/dL Normal 74-106 [facility] Comment on above: Performed By: #### L IPID, CMP #### [facility] [address] [place] [address] Dr. Nida Castillo Potassium [Moles/Vol] 4.3 mmol/L Normal 3.5-5.1 [facility] Comment on above: Performed By: #### L IPID, CMP #### [facility] [address] [place] [address] Dr. Nida Castillo Protein [Mass/Vol] 7.2 g/dL Normal 6.4-8.2 [facility] Comment on above: Performed By: #### L IPID, CMP #### [facility] [address] [place] [address] Dr. Nida Castillo Sodium [Moles/Vol] 141 mmol/L Normal 136-145 [facility] Comment on above: Performed By: #### L IPID, CMP #### [facility] [address] [place] [address] Dr. Nida Castillo Urea nitrogen [Mass/Vol] 24.0 mg/dL Critically high 7.0-18.0 [facility] Comment on above: Performed By: #### L IPID, CMP #### [facility] [address] [place] [address] Dr. Nida Castillo Urea nitrogen/Creatinine [Mass ratio] 24.5 mg/mg Normal [facility] Comment on above: Performed By: #### L IPID, CMP #### [facility] [address] [place] [address] Dr. Nida Castillo Vital Signs Date Time Vital Sign Value Performing Clinician Facility 11-17-2023 15:25-0400 Blood Pressure Location Giorgio GONZALES [facility] 11-17-2023 15:25-0400 Diastolic blood pressure 84 mm[Hg] Giorgio GONZALES [facility] 11-17-2023 15:25-0400 Heart rate 70 /min Giorgio GONZAL[facility] 11-17-2023 15:25-0400 Respiratory rate 16 /min Giorgio GONZALES [facility] 11-17-2023 15:25-0400 Systolic blood pressure 124 mm[Hg] Giorgio GONZALES [facility] 11-10-2023 11:03-0400 Body height 180.[address] [facility] 11-10-2023 11:03-0400 Body mass index (BMI) [Ratio] 21.7 kg/m2 [facility] 11-10-2023 11:03-0400 Body weight 70.[address] [facility] 11-10-2023 11:03-0400 Diastolic blood pressure 76 mm[Hg] [facility] 11-10-2023 11:03-0400 Heart rate 69 /min [facility] 11-10-2023 11:03-0400 Respiratory rate 12 /min [facility] 11-10-2023 11:03-0400 Systolic blood pressure 118 mm[Hg] [facility] 08-12-2023 11:30-0500 Body height 180.34 cm Sammy Ball Other [facility] [employer] Other 08-12-2023 11:30-0500 Body mass index (BMI) [Ratio] 20.64 kg/m2 Sammy Ball Other [facility] [employer] Other 08-12-2023 11:30-0500 Body weight 67.13 kg Sammy Ball Other [facility] [employer] Other 08-12-2023 11:30-0500 Diastolic blood pressure 85 mm[Hg] Sammy Ball Other [facility] [employer] Other 08-12-2023 11:30-0500 Respiratory rate 12 /min Sammy Ball Other [facility] [employer] Other 08-12-2023 11:30-0500 Systolic blood pressure 135 mm[Hg] Sammy Ball Other [employer] Other 07-01-2023 10:30-0500 Body height 180.34 cm Sammy Ball Other [employer] Other 07-01-2023 10:30-0500 Body mass index (BMI) [Ratio] 21 kg/m2 Sammy Ball Other [employer] Other 07-01-2023 10:30-0500 Body weight 68.31 kg Sammy Ball Other [employer] Other 07-01-2023 10:30-0500 Diastolic blood pressure 74 mm[Hg] Sammy Ball Other [employer] Other 07-01-2023 10:30-0500 Respiratory rate 12 /min Sammy Ball Other [employer] Other 07-01-2023 10:30-0500 Systolic blood pressure 110 mm[Hg] Sammy Ball Other [employer] Other 05-30-2023 16:36-0400 Hourly Rounding Mbanefo OJUKWU [facility] 05-30-2023 16:36-0400 Promise to Return Mbanefo OJUKWU [facility] 05-30-2023 16:00-0400 Diastolic blood pressure 77 mm[Hg] Mbanefo OJUKW[facility] 05-30-2023 16:00-0400 Heart rate 45 /min Mbanefo OJUKW[facility] 05-30-2023 16:00-0400 SaO2% (BldA) [Mass fraction] 98 % Mbanefo OJUKW[facility] 05-30-2023 16:00-0400 Systolic blood pressure 128 mm[Hg] Mbanefo OJUKWU [facility] 05-30-2023 15:36-0400 Hourly Rounding Mbanefo OJUKWU [facility] 05-30-2023 15:36-0400 Promise to Return Mbanefo OJUKWU [facility] 05-30-2023 14:07-0400 Hourly Rounding Mbanefo OJUKWU [facility] 05-30-2023 14:07-0400 Promise to Return Mbanefo OJUKW[facility] 05-30-2023 14:00-0400 Body temperature 98.06 [degF] Mbanefo OJUKW[facility] 05-30-2023 12:00-0400 Blood Pressure Location Mbanefo OJUKW[facility] 05-30-2023 12:00-0400 Heart rate 42 /min Mbanefo OJUKW[facility] 05-30-2023 12:00-0400 Systolic blood pressure 157 mm[Hg] Mbanefo OJUKW[facility] 05-30-2023 08:24-0400 Heart rate 36 /min Mbanefo [facility]JUK[facility] 05-30-2023 08:24-0400 SaO2% (BldA) [Mass fraction] 99 % Mbanefo OJUKW[facility] 05-30-2023 08:14-0400 Body temperature 97.52 [degF] Mbanefo OJUKW[facility] 05-30-2023 08:14-0400 Diastolic blood pressure 72 mm[Hg] Mbanefo OJUKW[facility] 05-30-2023 08:14-0400 Mean blood pressure 99 mm[Hg] Mbanefo OJUKW[facility] 05-30-2023 08:14-0400 Systolic blood pressure 152 mm[Hg] Mbanefo OJUKW[facility] 05-29-2023 20:00-0400 Mean blood pressure 102 mm[Hg] Mbanefo OJUKW[facility] 05-29-2023 16:18-0400 Mean blood pressure 96 mm[Hg] Mbanefo OJUKW[facility] 05-29-2023 14:00-0400 Blood Pressure Location Mbanefo OJUKW[facility] 05-29-2023 11:37-0400 Mean blood pressure 103 mm[Hg] Mbanefo OJUKW[facility] 05-28-2023 20:00-0400 Mean blood pressure 106 mm[Hg] Mbanefo OJUKW[facility] 05-28-2023 16:46-0400 Body temperature 97.34 [degF] Mbanefo OJUKW[facility] 05-28-2023 10:31-0400 Body temperature 97.34 [degF] Mbanefo OJUKW[facility] 05-28-2023 02:51-0400 Respiratory rate 18 /min Mbanefo OJUK[facility] 05-28-2023 00:45-0400 Respiratory rate 17 /min Mbanefo OJUK[facility] 05-27-2023 20:05-0400 Respiratory rate 17 /min Mbanefo OJUK[facility] 05-27-2023 17:15-0400 Heart rate 60 /min Mbanefo OJUK[facility] 05-27-2023 16:57-0400 Respiratory rate 22 /min Mbanefo OJUK[facility] 05-27-2023 16:32-0400 Mean blood pressure 81 mm[Hg] Mbanefo OJUKWU [facility] 05-27-2023 16:32-0400 Respiratory rate 16 /min Mbanefo OJUKW[facility] 05-27-2023 15:25-0400 Respiratory rate 14 /min Mbanefo OJUKW[facility] 05-27-2023 13:39-0400 SaO2% (BldA) [Mass fraction] 98.8 % Mbanefo OJUKWU [facility] Resp [facility] 05-27-2023 13:16-0400 Heart rate 79 /min Mbanefo OJUKWU [facility] 03-17-2023 10:35-0400 Blood Pressure Location Kayla Lue [facility] 03-17-2023 10:35-0400 Diastolic blood pressure 82 mm[Hg] Kayla Lue [facility] 03-17-2023 10:35-0400 Heart rate 74 /min Kayla Lue [facility] 03-17-2023 10:35-0400 Systolic blood pressure 128 mm[Hg] Kayla Lue [facility] 12-30-2022 11:30-0400 Body height 180.34 cm Sammy Ball Other [facility] [employer] Other 12-30-2022 11:30-0400 Body mass index (BMI) [Ratio] 24.29 kg/m2 Sammy Ball Other [facility] [employer] Other 12-30-2022 11:30-0400 Body weight 79.02 kg Sammy Ball Other [facility] [employer] Other 12-30-2022 11:30-0400 Diastolic blood pressure 75 mm[Hg] Sammy Ball Other [employer] Other 12-30-2022 11:30-0400 Respiratory rate 12 /min Sammy Ball Other [employer] Other 12-30-2022 11:30-0400 Systolic blood pressure 132 mm[Hg] Sammy Ball Other [facility] [employer] Other 12-02-2022 08:17-0400 Blood Pressure Location Kayla Lue [facility] 12-02-2022 08:17-0400 Diastolic blood pressure 70 mm[Hg] Kayla Lue [facility] 12-02-2022 08:17-0400 Heart rate 68 /min Kayla Lue [facility] 12-02-2022 08:17-0400 Respiratory rate 16 /min Kayla Torres [facility] 12-02-2022 08:17-0400 Systolic blood pressure 128 mm[Hg] Kayla Torres [facility] 09-29-2022 11:30-0500 Body height 180.34 cm Sammy Ball Other [employer] Other 09-29-2022 11:30-0500 Body mass index (BMI) [Ratio] 25.13 kg/m2 Sammy Ball Other [employer] Other 09-29-2022 11:30-0500 Body weight 81.74 kg Sammy Ball Other [employer] Other 09-29-2022 11:30-0500 Diastolic blood pressure 68 mm[Hg] Sammy Ball Other [employer] Other 09-29-2022 11:30-0500 Respiratory rate 12 /min Sammy Ball Other [employer] Other 09-29-2022 11:30-0500 Systolic blood pressure 122 mm[Hg] Sammy Ball Other [employer] Other Encounters Encounter Date Encounter Type Care Provider Facility Start: 03-22-2024 ambulatory Kayla Torres Facility:[facility] Start: 12-07-2023 End: 12-07-2023 ambulatory BELKYS RANDALL Not Available Start: 11-17-2023 End: 11-18-2023 ambulatory SAMMY AGUILERA Facility:[facility] Start: 11-17-2023 End: 11-17-2023 Patient encounter procedure Giorgio GONZALES [facility] Start: 11-15-2023 ambulatory Kayla Lue Facility:[facility] Start: 11-10-2023 End: 11-10-2023 ambulatory [facility] Work Phone: Start: 11-10-2023 End: 11-10-2023 Patient encounter procedure Pending Sale To [facility] Work Phone: Start: 11-02-2023 ambulatory Kayla Torres Facility:[facility] Start: 09-16-2023 Non-patient / Non-visit Pending [facility] To [facility] [employer] Work Phone: Start: 08-30-2023 End: 08-30-2023 ambulatory Sammy Aguilera Other [employer] Other Start: 08-30-2023 Telephone encounter Sammy Aguilera [facility] Start: 08-23-2023 End: 08-23-2023 ambulatory Sammy Aguilera Other [employer] Other Start: 08-23-2023 Telephone encounter Sammy Aguilera FP [facility] Start: 08-12-2023 End: 08-12-2023 ambulatory Sammy Ball Other [employer] Other Start: 08-12-2023 Office outpatient vi sit 25 minutes Sammy Willy [facility] Start: 08-10-2023 End: 08-10-2023 ambulatory Sammy Ball Other [employer] Other Start: 08-10-2023 Telephone encounter Sammy Aguilera [facility] Start: 07-27-2023 End: 07-27-2023 ambulatory Sammy Ball Other [employer] Other Start: 07-27-2023 Telephone encounter Sammy Aguilera [facility] Start: 07-12-2023 End: 07-12-2023 ambulatory Sammy Ball Other [employer] Other Start: 07-12-2023 Telephone encounter Sammy Ball [facility] Start: 07-09-2023 End: 07-09-2023 ambulatory Sammy Ball Other [employer] Other Start: 07-09-2023 Telephone encounter Sammy Ball [facility] Start: 07-07-2023 End: 07-07-2023 ambulatory Sammy Ball Other [employer] Other Start: 07-07-2023 Telephone encounter Sammy Ball [facility] Start: 07-01-2023 End: 07-01-2023 ambulatory Sammy Ball Other [employer] Other Start: 07-01-2023 Office outpatient vi sit 25 minutes Sammy Ball [facility] Start: 07-01-2023 Telephone encounter Sammy Ball [facility] Start: 06-29-2023 End: 06-29-2023 ambulatory Sammy Ball Other [employer] Other Start: 06-29-2023 Telephone encounter Sammy Ball [facility] Start: 06-04-2023 End: 06-04-2023 ambulatory Sammy Ball Other [employer] Other Start: 06-04-2023 Telephone encounter Sammy Ball [facility] Start: 05-29-2023 End: 05-29-2023 ambulatory Sammy Ball Other [employer] Other Start: 05-29-2023 Telephone encounter Sammy Ball [facility] Start: 05-27-2023 End: 05-30-2023 Evaluation and management of inpatient Jossue Spivey Facility:[facility] Start: 05-27-2023 End: 05-30-2023 Evaluation and management of inpatient Miriam JennJUKWU [facility] Start: 04-09-2023 End: 04-09-2023 ambulatory Sammy Aguilera Other [employer] Other Start: 04-09-2023 Telephone encounter Sammy Aguilera [facility] Start: 03-17-2023 End: 03-18-2023 ambulatory Kayla Torres Facility:[facility] Start: 03-17-2023 End: 03-17-2023 Patient encounter procedure Kayla Torres [facility] Start: 03-17-2023 End: 03-18-2023 ambulatory Kayla Torres Facility:[facility] Start: 03-17-2023 End: 03-17-2023 Patient encounter procedure Kayla Torres [facility] Start: 03-11-2023 End: 03-11-2023 ambulatory Sammy Aguilera Other [employer] Other Start: 03-11-2023 Telephone encounter Sammy Aguilera [facility] Start: 02-09-2023 End: 02-09-2023 ambulatory Sammy Aguilera Other [employer] Other Start: 02-09-2023 Telephone encounter Sammy Aguilera FP [facility] Start: 01-05-2023 End: 01-05-2023 ambulatory Sammy Aguilera Other [employer] Other Start: 01-05-2023 Telephone encounter Sammy Aguilera FP [facility] Start: 12-30-2022 End: 12-30-2022 ambulatory Sammy Willy Other [employer] Other Start: 12-30-2022 Encounter for genera l adult medical examination without abnormal findings Sammy Ball [facility] Start: 12-30-2022 Periodic preventive med est patient 40-64yrs Sammy Ball [facility] Start: 12-03-2022 End: 12-03-2022 ambulatory Sammy Aguilera Other [employer] Other Start: 12-03-2022 Telephone encounter Sammy Aguilera FP [facility] Start: 12-02-2022 End: 12-02-2022 Patient encounter procedure Kayla BarahonaElis Brian [facility] Start: 11-30-2022 End: 12-01-2022 ambulatory KAYLA TORRES . Facility:[facility] Start: 11-05-2022 End: 11-05-2022 ambulatory Sammy Aguilera Other [employer] Other Start: 11-05-2022 Telephone encounter Sammy Aguilera FP [facility] Start: 10-30-2022 End: 10-30-2022 ambulatory Sammy Aguilera Other [employer] Other Start: 10-30-2022 Telephone encounter Sammy Aguilera [facility] Start: 09-30-2022 End: 09-30-2022 ambulatory Sammy Aguilera Other [employer] Other Start: 09-30-2022 Telephone encounter Sammy Aguilera [facility] Start: 09-29-2022 End: 09-29-2022 ambulatory Sammy Aguilera Other [employer] Other Start: 09-29-2022 Office outpatient vi sit 25 minutes Sammy Aguilera [facility] Start: 12-16-2021 Encounter for genera l adult medical examination without abnormal findings SAMMY AGUILERA [facility] Start: 12-10-2021 End: 12-11-2021 ambulatory SAMMY AGUILERA Facility:[facility] Start: 12-10-2021 End: 12-11-2021 Encounter for general adult medical examination without abnormal findings SAMMY AGUILERA Facility:[facility] Start: 12-10-2021 Adult health examination Sammy Aguilera Other [employer] Other Procedures Date Procedure Procedure Detail Performing Clinician Start: 11-30-2022 PSA screening KAYLA TORRES . Comment on above: Performed By: #### PSAD #### [facility] [address] [place] [address] Dr. Nida Castillo Start: 05-09-2020 Radical retropubic prostatectomy Kayla morales Start: 02-29-2020 Transrectal biopsy of prostate Kayla Torres Start: 11-11-2018 Screening for malignant neoplasm of prostate Sammy Aguilera Other Start: 11-10-2018 General examination of patient Sammy Aguilera Other Start: 08-02-2015 Colonoscopy Giorgio KAISERL Start: 08-02-2015 Esophagogastroduodenoscopy Giorgio NILL Start: 08-02-2007 Teleradiotherapy procedure Kayla Torres Biopsy of soft palate Michae placido KAISERL Colonoscopy Kayla Torres Decompression of median nerve Giorgio KAISERL Tonsillectomy Kayla Torres Immunizations Immunization Date Immunization Notes Care Provider Fa [facility] 07-14-2022 COVID-19 Pfizer (Pediatric) Sammy Aguilera Other [facility] 07-14-2022 influenza virus vaccine, split virus (incl. purified surface antigen) Sammy Aguilera Other [employer] Other 07-14-2022 influenza virus vaccine, unspecified formulation Kayla Torres [facility] 07-14-2022 influenza, injectabl e, quadrivalent, preservative free Sammy Aguilera Other [facility] 07-14-2022 SARS-CoV-2 (COVID-19 ) [id number] Kayla Lue [facility] 07-15-2021 SARS-CoV-2 (COVID-19 ) mRNA-1273 vaccine Kayla Lue [facility] 07-05-2021 SARS-CoV-2 (COVID-19 ) mRNA-1273 vaccine Kayla Lue [facility] Comment on above: Result Comment: [facility] 06-30-2021 influenza virus vaccine, split virus (incl. purified surface antigen) Sammy Aguilera Other [employer] Other 06-30-2021 influenza virus vaccine, unspecified formulation [facility] 10-07-2020 SARS-CoV-2 (COVID-19 ) Ad26 vaccine, recombinant Kayla Lue [facility] 05-10-2020 influenza virus vaccine, unspecified formulation Kayla Lue [facility] 05-15-2019 influenza virus vaccine, unspecified formulation Kayla Lue [facility] 05-12-2019 influenza virus vaccine, split virus (incl. purified surface antigen) Sammy Aguilera Other [employer] Other 05-12-2019 influenza virus vaccine, unspecified formulation [facility] 08-12-2018 influenza virus vaccine, unspecified formulation Kayla Lue [facility] 05-21-2017 influenza virus vaccine, split virus (incl. purified surface antigen) Sammy Aguilera Other [employer] Other 05-21-2017 influenza virus vaccine, unspecified formulation [facility] 05-21-2017 influenza, unspecifi ed formulation Kayla Torres [facility] 05-21-2016 tetanus and diphther ia toxoids, adsorbed, preservative free, for adult use (5 Lf of tetanus toxoid and 2 Lf of diphtheria toxoid) [facility] 05-21-2016 tetanus toxoid, reduced diphtheria toxoid, and acellular pertussis vaccine, adsorbed Kayla Torres [facility] 05-24-2015 influenza virus vaccine, unspecified formulation Kayla Torres [facility] Payers Date Payer Category Payer Private Health Insurance [id number] 2022 [facility] [id number] 2022 Unknown [id number] 2019 Unknown [id number] 1961 Medicare [id number] 1960 Unknown [id number] 2.16.84 [id number] 1960 Unknown [id number] 2.16.84 [id number] 1958 Unknown [id number] 2.16.84 [id number] 1958 Unknown [id number] 2.16.8 [id number] 1958 Unknown [id number] 2.16.8 [id number] 1958 Unknown [id number] 2.16.8 [id number] 1958 Unknown [id number] 2.16.8 [id number] 1958 Unknown [id number] 2.16.8 [id number] 1958 Unknown [id number] 2.16.8 [id number] Social History Date Type Detail Facility Sex Assigned At [facility] Start: 12-02-2022 End: 11-17-2023 Tobacco smoking status Ex-smoker (finding) [facility] Start: 03-17-2023 Tobacco smoking status Never [facility] Start: 08-12-2023 Tobacco smoking stat [facility] Never smoked tobacco (finding) [facility] Start: 1960 Sex Assigned At Male F [facility] Functional Status Date Assessment Result Facility 11-17-2023 Functional Status N/A [facility] 05-27-2023 Functional Status Yes [facility] 05-27-2023 Functional Status [facility] 03-17-2023 Functional Status N/A [facility] 12-02-2022 Functional Status N/A [facility] Clinical Notes 09-29-2022 to 11-17-2023 Note Date & Type Note Facility 11-17-2023 Note Chief Complaint consultation for weight loss HPI [...] aspirin 81 mg oral tablet, Oral, Daily Belb (more content not included)... [facility] Comment on above: Result Comment: Elec tronically Signed By: CHRISTIAN LUGO, Giorgio Lennon\Date and Time Signed: 11/17/23 16:31 EDT 08-30-2023 Evaluation note Encounter Date Diagnosis Assessment Notes Aug, Elevated TSH (ICD-10 - R94.6) [employer] Other 01-22-2024 Evaluation note* Encounter Date Diagnosis Assessment Notes Treatment Notes Treatment Clinical Notes Aug, Weight loss, unintentional (ICD-10 - R63.4) [employer] Other 01-11-2024 Evaluation note* Encounter Date Diagnosis [...] use, the patient reduces the risk for PA, CVA, HTN, cardiac dysrhythmias and sudden cardiac [...] Z85.89) Tonsil No s/s recurrence f/u ENT [employer] Other 01-09-2024 Evaluation note* Encounter Date Diagnosis Assessment Notes Treatment Notes Treatment Clinical Notes Aug, Lumbar spondylosis (ICD-10 - M47.816) [employer] Other 12-26-2023 Evaluation note* Encounter Date Diagnosis Assessment Notes Treatment Notes Treatment Clinical Notes Jul, Lumbar spondylosis (ICD-10 - M47.816) Jul, Gastroesophageal ref lux disease with esophagitis without hemorrhage (ICD-10 - K21.00) [employer] Other 12-06-2023 Evaluation note* Encounter Date Diagnosis Assessment Notes Treatment Notes Treatment Clinical Notes Jul, Weight loss, unintentional (ICD-10 - R63.4) [employer] Other 11-30-2023 Evaluation note* Encounter Date Diagnosis [...] use, the patient reduces the risk for PA, CVA, HTN, cardiac dysrhythmias and sudden cardiac [...] - C61) No obvious s/s recurrence f/u [employer] Other 11-12-2023 NoteAdmission and Discharge Information Admit [...] 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 In ER patient was positive for COVID [...] PCP in 5 to 7 days ? 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 [...] 75.0 % Lymph Auto - 17.8 % [place] Auto - 6.9 % Eos Auto - 0.0 % Basophil Auto - 0.3 % Neutro Absolute - 3.6 E9/L Lymph Absolute - 0.8 E9/L [place] Absolute - 0.3 E9/L Eos Absolute - [...] % O2 Sat Art - 98.8 % sewer connector+ Art - 138.0 mmol/L cK+ Art - [...] - 120 mg/dL POC Device SN - [id number] POC User ID - [id number] POC Username - LUCY KAPADIA CBC w/ Auto Diff (05/30/2023) WBC - 4.8 E9/L RBC - 4.5 E12/L Hgb - 13.1 gm/dL Hct - 39.3 % MCV - 86.4 fL MCH - 28.8 pg MCHC - 33.3 gm/dL RDW - 13.1 % Platelet - 167.0 E9/L MPV - 8.5 fL CMP (05/29/2023) Glucose Lvl - 93 mg/dL BUN - (more content not included)...[facility] Result Comment: Electronically Signed By: Jossue Spivey DO\.br\Date and Time Signed: 06/13/23 10:22 [id number] NoteMicrobiology PROCEDURE: Blood Culture Charcoal [R1] SOURCE: Blood BODY SITE: Hand R COLLECTED DATE/TIME: 05/28/2023 15:45 EDT RECEIVED DATE/TIME: 05/28/2023 16:53 EDT START DATE/TIME: 05/28/2023 16:53 EDT FREE TEXT SOURCE: Jossue Spivey DO. Jossue Spivey DO. FINAL REPORTS Final Report [] Verified Date/Time: 06/04/2023 18:00 EDT No growth at 7 days. Performing Locations R1: This test was performed at: [facility], [address] [place] [address], [address] [place] [address], GndcspFlower HospitalComment on above:Performed By: #### [id number], [id number] #### [facility] [address] [place] [address] [id number] NoteMicrobiology PROCEDURE: Blood Culture Charcoal [R1] SOURCE: Blood BODY SITE: Arm R COLLECTED DATE/TIME: 05/28/2023 14:34 EDT RECEIVED DATE/TIME: 05/28/2023 15:31 EDT START DATE/TIME: 05/28/2023 15:31 EDT FREE TEXT SOURCE: Jossue Spivey DO. Jossue Spivey DO. FINAL REPORTS Final Report [] Verified Date/Time: 06/04/2023 16:01 EDT No growth at 7 days. Performing Locations R1: This test was performed at: [facility], [address] [place] [address], [address] [place] [address], SwcvzmFlower HospitalComment on above:Performed By: #### [id number] #### [facility] [address] [place] [address] [phone] Evaluation note* Encounter Date Diagnosis Assessment Notes Treatment Notes Treatment Clinical Notes Jun, Lumbar spondylosis (ICD-10 - M47.816) [employer] Other 10-31-2023 NoteMicrobiology PROCEDURE: Blood Culture Charcoal [R1] SOURCE: Blood BODY SITE: Wrist L COLLECTED DATE/TIME: 05/27/2023 13:50 EDT RECEIVED DATE/TIME: 05/27/2023 14:24 EDT START DATE/TIME: 05/27/2023 14:25 EDT FREE TEXT SOURCE: IV vera Duncan PA-C, Barney Duncan PA-C, Barney Mireles FINAL REPORTS [...] Locations R1: This test was performed at: [facility], [address] [place] [address], [id number] , , VjipawFlower HospitalComment on above:Performed By: #### [id number], [id number] #### [facility] [address] [place] [address] [id number] NoteMicrobiology PROCEDURE: Blood Culture Charcoal [R1] SOURCE: [...] called to Dr. Spivey 05/28/2023 12:28:37 by THIERNO. Also alerted that his second set of [...] Locations R1: This test was performed at: [facility], [address] [place] [address], [id number] , , MddwstFlower HospitalComment on above:Performed By: #### [id number], [id number], [id number] #### [facility] [address] [place] [address] [id number] Evaluation + Plan noteExtracted from: Title:APSO Note Author:Jossue Spivey DO e:05/30/23 1. COVID-19 (U07.1: COVID-19 ) Remdesivir started 05/27, complete 5 days DEXA started 05/27, complete 10 days -Patient on room air, can likely stop remdesivir at discharge Ordered: [facility] Hospital Care/Day Moderate 35 Minutes [id number] 2. Acute hypoxemic respiratory failure (J96.01: Acute [...] Ordered: Initial Hospital Care/Day Moderate 55 Minutes 11689 2. Acute hypoxemic respiratory failure (J96.01: Acute [...] ER -remdesivir started 05/27 -Dexa 05/27 Ordered: [facility] Hospital Care/Day Moderate 35 Minutes 34083 2. Acute hypoxemic respiratory failure (J96.01: Acute [...] Ordered: Initial Hospital Care/Day Moderate 55 Minutes 38090 2. Acute hypoxemic respiratory failure (J96.01: Acute [...] Vital Signs Weight Extracted from: Title:ED Note Author:Perla CORTEZ, Barney Mireles John e:05/27/23 Acute hypoxemic respiratory failure (J96.01: [...] Therapy PT & PTT Rapid COVID Antigen ([facility]) Saline Lock Insert Troponin 0 Hr. Troponin 3 Hr. Troponin 6 Hr. Troponin 9 Hr. XR Chest Single View Future Appointments Appointment Date:03/22/2024 10:45:00 AM Scheduled Provider:Brian LUGO, Kayla Dubose Location:[facility] Appointment Type:URO Office Visit Diagnostic Tests Pending * Vancomycin Level Trough 06/01/[address] [facility]10-29-2023 NoteAssessment/Plan 1. COVID-19 (U07.1: COVID-19) ? Remdesivir started 05/27, complete 5 days ? DEXA started 05/27, complete 10 days -Patient on room air, can likely stop remdesivir at discharge Ordered: [facility] Hospital Care/Day Moderate 35 Minutes [id number] 2. Acute hypoxemic respiratory failure (J96.01: Acute [...] 06:18:00) Lymph Auto: 17.8 % (05/30/23 06:18:00) [place] Auto: 6.9 % (05/30/23 06:18:00) Eos Auto: 0 % (05/30/23 06:18:00) Basophil Auto: 0.3 % (05/30/23 06:18:00) Neutro Absolute: 3.6 E9/L (05/30/23 06:18:00) Lymph Absolute: 0.8 E9/L Low (05/30/23 06:18:00) [place] Absolute: 0.3 E9/L (05/30/23 06:18:00) Eos Absolute: [...] DR Tab, Oral, Daily (more content not included)...[facility] Hospital[facility] on above:Result Comment: Electronically Signed By: Jossue Spivey DO.br\Date and Time Signed: 05/30/23 09:32 [id number] Hospital Discharge instructions Patient Education 05/30/2023 09:29:42 [...] managed at home with rest, fluids, and ftza-xgs-pnwjmoq medicines. Serious symptoms may be treated in [...] water are not available, use alcohol-based hand hat blocking operator. Make sure that all people in your [...] managed at home with rest, fluids, and spxp-obl-jbpdclq medicines. This information is not intended to replace advice given to you by your health care provider. Make sure you discuss any questions you have with your health care provider. Document Revised: 07/09/2022 Document Reviewed: 07/09/2022 [employer] Patient Education 2022 [employer]. Follow Up Care 05/27/2023 13:13:17 With:Sree LUGO, Pawel Fried, PUL, FATOUMATA Address: [address] [place] [address] [facility] [place] [id number] When:2 to 4 weeks Comments:Call for followup appointment for possible outpatient sleep study [facility]10-28-2023 NoteAssessment/Plan 1. COVID-19 (U07.1: COVID-19) ? Remdesivir started 05/27, completed 5 days ? DEXA started 05/27, complete 10 days Ordered: Initial Hospital Care/Day Moderate 55 Minutes [id number] 2. Acute hypoxemic respiratory failure (J96.01: Acute [...] Lymph Auto: 12.6 % Low (05/29/23 05:56:00) [place] Auto: 7.5 % (05/29/23 05:56:00) Eos Auto: 0.2 % (05/29/23 05:56:00) Basophil Auto: 0.2 % (05/29/23 05:56:00) Neutro Absolute: 4.6 E9/L (05/29/23 05:56:00) Lymph Absolute: 0.7 E9/L Low (05/29/23 05:56:00) [place] Absolute: 0.4 E9/L (05/29/23 05:56:00) Eos Absolute: [...] 05:56:00) Calcium Lvl: 8.6 (more content not included)...[facility] Comment on above:Result Comment: Electronically Signed By: Jossue Spivey DO\.br\Date and Time Signed: 05/29/23 09:30 [id number] NoteAssessment/Plan 1. COVID-19 (U07.1: COVID-19) tested positive in ER -remdesivir started 05/27 -Dexa 05/27 Ordered: S[facility] Hospital Care/Day Moderate 35 Minutes [id number] 2. Acute hypoxemic respiratory failure (J96.01: Acute [...] Lymph Auto: 6.8 % Low (05/28/23 06:12:00) [place] Auto: 3.6 % Low (05/28/23 06:12:00) Eos Auto: 0 % (05/28/23 06:12:00) Basophil Auto: 0.1 % (05/28/23 06:12:00) Neutro Absolute: 4.9 E9/L (05/28/23 06:12:00) Lymph Absolute: 0.4 E9/L Low (05/28/23 06:12:00) [place] Absolute: 0.2 E9/L (05/28/23 06:12:00) Eos Absolute: 0 E9/L (05/28/23 06:12:00) Basophil Absolute: 0 E9/L (05/28/23 06:12:00) PT: 14.2 second(s) High (05/27 (more content not included)...[facility] HospitalComment on above:Result Comment: Electronically Signed By: Jossue Spivey DO\.br\Date and Time Signed: 05/28/23 09:48 [id number] NotePT Evaluation done this date. Pt. with on AM-PAC this date. He is safe and independent with all functional activities. Does have some decreased endurance. Educated on getting up to chair throughout the day. No further PT needs.[facility]-26-2023 NoteBasic Information Admit Date/Time:05/27/2023 16:03 Chief Complaint [...] tonsil cancer and follows with oncologist in [place]. Patient has not had any type of [...] Lymph Auto: 2.1 % Low (05/27/23 13:50:00) [place] Auto: 4.6 % (05/27/23 13:50:00) Eos Auto: 0.1 % (05/27/23 13:50:00) Basophil Auto: 0 % (05/27/23 13:50:00) Neutro Absolute: 8.3 E9/L High (05/27/23 13:50:00) Lymph Absolute: 0.2 E9/L Low (05/27/23 13:50:00) [place] Absolute: 0.4 E9/L (05/27/23 13:50:00) Eos Absolute: [...] O2 Sat Art: 98.8 % (05/27/23 13:39:00) sewer connector+ Art: 138 mmol/L (05/27/23 13:39:00) cK+ Art: 4.3 mmol/L (05/27/23 13:39:00) cCa2+ Art: 4.56 mg/dL (05/27/23 13:39:00) cCl- Art: 95 mmol/L Low (05/27/23 13:39:00) cGlu Art: 100 mg/dL High (05/27/23 13:3 (more content not included)...[facility] on above:Result Comment: Electronically Signed By: Jossue Spivey DO\.br\Date and Time Signed: 05/27/23 17:45 [id number] Evaluation note* Encounter Date Diagnosis Assessment Notes Treatment Notes Treatment Clinical Notes Apr, Lumbar spondylosis (ICD-10 - M47.816) [employer] Other 08-16-2023 Hospital Discharge instructions Patient Education [...] provider. Document Revised: 11/27/2021 Document Reviewed: 11/27/2021 [employer] Patient Education 2022 [employer]. Follow Up Care 12/02/2022 09:06:34 With:Brian LUGO, Kayla Dubose, URL, URO Address: When:Within 1 Year(s) Comments:w/PSA [facility] [employer] 08-10-2023 Evaluation note* Encounter Date Diagnosis Assessment Notes Treatment Notes Treatment Clinical Notes Mar, Lumbar spondylosis (ICD-10 - M47.816) [employer] Other 07-11-2023 Evaluation note* Encounter Date Diagnosis Assessment Notes Treatment Notes Treatment Clinical Notes Jan, Lumbar spondylosis (ICD-10 - M47.816) [employer] Other 06-06-2023 Evaluation note* Encounter Date Diagnosis Assessment Notes Treatment Notes Treatment Clinical Notes Dec, Lumbar spondylosis (ICD-10 - M47.816) [employer] Other 05-31-2023 Evaluation note* Encounter Date Diagnosis [...] use, the patient reduces the risk for PA, CVA, HTN, cardiac dysrhythmias and sudden cardiac [...] now. November, Lumbar spondylosis (ICD-10 - M47.816) [employer] Other 05-03-2023 Hospital Discharge instructions Patient Education [...] if anything looks unusual. Men with a bprsby-hpnj-bpxzpq risk for skin cancer may want to see a end user support specialist (health consultant) for an annual body check. What are the benefits of screening? Cancer screening is done to look for cancer in the very early stages, before it spreads and becomesharder to treat and before you would start to notice symptoms. Finding cancer early improves the chances of successful treatment. It may save your life. Where to find more information [place] [employer]: www.cancer.org Centers for Disease Control and Prevention: www.cdc.gov National Cancer [employer]: www.cancer.gov Contact a health care provider if: [...] provider. Document Revised: 12/15/2021 Document Reviewed: 06/14/2020 [employer] Patient Education 2022 [employer]. Follow Up Care 11/11/2021 11:50:16 With:rBian LUGO, PEDRO Bernal, URO Address: When: Unknown [facility] 03-31-2023 Evaluation note* Encounter Date Diagnosis Assessment Notes Treatment Notes Treatment Clinical Notes Sep, Lumbar spondylosis (ICD-10 - M47.816) [employer] Other 02-28-2023 Evaluation note* Encounter Date Diagnosis [...] use, the patient reduces the risk for PA, CVA, HTN, cardiac dysrhythmias and sudden cardiac [...] (ICD-10 - Z85.89) Tonsil No s/s recurrence [employer] Other Evaluation + Plan note Future Appointments Appointment Date:03/17/2023 10:30:00 AM Scheduled Provider:Kayla Torres MD Location:[facility] Appointment Type:URO Office Visit Diagnostic Tests Pending * PSA Total 12/02/22 [facility] evaluation + Plan note Future Appointments Appointment Date:03/22/2024 10:45:00 AM Scheduled Provider:Kayla Torres MD Location:[facility] Appointment Type:URO Office Visit [facility] evaluation noteNo [employer] Other Evaluation note* Diagnosis Onset Date Resolution Status Gastroesophageal reflux dise ase with esophagitis without hemorrhage acute High cholesterol acute Hypertension acute Lumbar spondylosis acute Mild episode of recurrent major depressive disorder acute PANCHITO (obstructive sleep apnea) acute Unexplained weight loss [facility] Work Phone: History general Narrative - Reported* Type Description [...] Tunnel Left 2014 Hospitalization History patient has jose davidson been hospitalized for [facility] Other [place] [facility] Narrative - Reported* Type Description Date [...] patient has jose davidson been hospitalized for [facility] [place] [facility] Narrative - Reported* Type Description Date [...] patient has jose davidson been hospitalized for [facility] [employer] Other Hospital course Narrative No data available for this section [facility] Hospital Discharge instructions No data available for this section [facility] No data available for this section [facility] reason for referral (narrative)* Reason *Waiting for appt Referral for EGD and Colonoscopy for continued weight loss and mild anemia Diagnosis 1 Weight loss, uninten tional (R63.4) Referral Organization [facility] Willy Arredondo C duy Referring Provider First Name Sammy Referring Provider Last Name Willy Referring Provider Specialty Internal Me dicine Referred Organization [facility] Gastroenterolo gy Referred Provider Jillian Rodas Referred Address [address],[id number] Referred Provider Specialty Gastroentero logy Referral Priority Routine General Notes Mr. Connor presents w/ continued weight loss. There is no laboratory evidence to explain this condition. He is mildly anemic but denies dysphagia, abdominal pain, change in bowel habits, melena or hematochezia. CT abdomen/pelvis does not reveal abnormalities to explain his weight loss. Katya Archer 09/06/2023 10:42:44 AM >received today, referral faxed P2P Clinical Notes Include CT abdomen/p [employer] Other Summary Purpose Family History No Family History Records Found Relationship Condition Age at Onset Recorded Date/T jovanny father Arthritis Unknown Hypertension Unknown family member Unknown Not Specified Malignant neoplasm of breast Unknown Malignant neoplasm Unknown Diabetes mellitus Unknown Unknown sibling Hypertension Unknown sister Malignant neoplasm Unknown Advance Directives No Advanced Directives Records Found Advance Directive Response Recorded Date/ Time Advance Directives No October 11 024 3:44pm Chief Complaint and Reason for Visit Chief Complaint Amb Documentation Check up Reason for Visit Gastroesophageal ref lux disease with esophagitis without hemorrhage High cholesterol Hypertension Lumbar spondylosis Mild episode of recurrent major depressive disorder PANCHITO (obstructive sleep apnea) Unexplained weight loss Additional Source Comments REASON FOR VISIT (unrecogniz ed section and content) 3 MONTHprescription refillre fillrefillrefillWELLNESSRefillNo InformationrefillrefillNo InformationREFILLNo Information3 month Follow upNo InformationLabs neededNo InformationCT resultsrefillrefill6 WEEK FOLLOW UPLab orderCT/lab results6 WEEK FOLLOW UP Patient Care team informatio n (unrecognized section and content) Team Status: Active Member Role Status Dates Sammy Aguilera DO Primary Care Provider Active Team Status: Active Member Role Status Dates Susan Hansen MD Primary Care Provider Active Start: September 16, 2023 ALYSSA Beckett Attending Provider Active Start : September 16, 2023 Team Status: Inactive Member Role Status Dates Sammy Aguilera DO Primary Care Provide r, Attending Provider Active Start: November 10, 2023 End: November 10, 2023 (unrecognized sect ion and content) No Status Records FoundNo Status Records FoundNo Status Records Found INFORMATION SOURCE (unrecogn ized section and content) DATE CREATED AUTHOR 12/04/2022 [facility] DATE CREATED AUTHOR AUTHOR'S ORGANIZ ATION 12/08/2023 [facility] EPIC DATE CREATED AUTHOR AUTHOR'S ORGANIZ ATION 12/12/2023 [facility] Goals (unrecognized section and content) Goals may be documented in a n alternate section FOR RECORDS PERTAINING TO PATIENTS WHO ARE [...] BE BASED ON THE PRIMARY CLINICAL RECORDS. Referral.[facility]. provides no warranty or guarantee of the accuracy or completeness of information in this document.
[2024-01-26] MEDS: LACTATED RINGER'S SOLUTION 1,000 ML 50 ML IV ×2 (08:35→08:45)
[2024-01-26 10:56] VITALS: BP 109/50; PULSE 52; TEMP 36.1; O2SAT 100
[2024-01-26 11:11] VITALS: BP 138/66; PULSE 55; O2SAT 99
[2024-01-26 11:26] VITALS: BP 166/77; PULSE 44; O2SAT 100
== END 2024-01-26 11:26 | disposition home or self-care (01) ==
PROVIDERS: PCP Internal Medicine; Visit Provider Surgery
PROC: (CPT 00813; principal; 2024-01-26 09:30)
DX: R63.4 Abnormal weight loss (principal); K21.9 Gastro-esophageal reflux disease without esophagitis; K57.30 Diverticulosis of large intestine without perforation or abscess without bleeding; Z85.46 Personal history of malignant neoplasm of prostate; Z85.89 Personal history of malignant neoplasm of other organs and systems; I10 Essential (primary) hypertension; E78.5 Hyperlipidemia, unspecified; Z90.79 Acquired absence of other genital organ(s); Z79.82 Long term (current) use of aspirin; Z87.891 Personal history of nicotine dependence; G47.33 Obstructive sleep apnea (adult) (pediatric); Z92.21 Personal history of antineoplastic chemotherapy; Z92.3 Personal history of irradiation; Z68.21 Body mass index [BMI] 21.0-21.9, adult
CPT/HCPCS: 00813; 43235; 45378; J2704

== ENCOUNTER 2024-02-09 19:43 | Outpatient (OUT) | payer BC, MEDICARE, SELFPAY | END 2024-02-09 19:44 | disposition home or self-care (01) | LOC: SLEEP 19:44 | PROVIDERS: PCP Physician Assistant; Visit Provider Physician Assistant | DX: G47.33 Obstructive sleep apnea (adult) (pediatric) (principal); G47.11 Idiopathic hypersomnia with long sleep time | CPT/HCPCS: 95810 ==

== ENCOUNTER 2024-04-10 20:41 | Outpatient (OUT) | payer BC, MEDICARE, SELFPAY ==
--- OUTSIDE RECORDS SUMMARY | 2024-04-10 20:54 | XMS_ITS | CCD ---
Author Organization [facility] Care Team Providers Care Communications Instructor Name Role Phone Sammy Aguilera Unavailable SAMMY AGUILERA Primary Care Physician KAYLA MCMAHON Attending Unavailable BRIAN .KAYLA Admitting Unavailable SAMMY AGUILERA Primary Care Unavailable SUSAN RUEDA Consulting Unavailable SAMMY AGUILERA Attending Unavailable SAMMY AGUILERA Consulting Unavailable SAMMY AGUILERA Primary Care Unavailable SAMMY AGUILERA Admitting Unavailable Giorgio GONZALES Attending Unavailable Kayla Torres Attending Unavailable Kayla Torres Attending Unavailable Jossue Spivey Admitting Unavailable Jossue Spivey Attending Unavailable SAMMY AGUILERA Referring Unavailable Giorgio GONZALES Attending BELKYS Vallejo Attending Unavailable ABI GREEN Attending Unavailab BELKYS Kirk Attending Unavailable ABI GREEN Attending Faraz lee Allergies Allergy Classification Reported Allergen(s) Allergy Type Date of Onset Reaction(s) Facility (1 source) patient allergy list reviewed by nurse or physicia Propensity to adverse reactions Comment:Done Anybots Other (1 source) Allergies Reconciled Propensity to adverse reactions Unknown Anybots Other (1 source) No Known Medication Allergies; Translations: [No Known Medication Allergies] Propensity to adverse reactions (disorder) [facility] Repository Medications Current Medications Medication Drug Class(es) Dates Sig (Normalized) Sig (Original) amantadine hydrochloride 100 mg oral capsule (1 source) Influenza A M2 Protein Inhibitor Start: 02-10-2024 take 100 mg by mouth every other day Amantadine Hcl Active 100 MG PO .QOD February 10, 2024 12:00am amLODIPine 2.5 mg / benazepril hydrochloride 10 mg oral capsule (20 sources) Dihydropyridine Calcium Channel Matilde, Angiotensin Converting Enzyme Inhibitor Start: 11-06-2023 take 1 capsule by mouth once daily Amlodipine-Benaz epril Active 1 CAP PO Daily November 06, 2023 12:00am Start: 07-01-2023 amLODIPine Bes y-Benazepril HCl 2.5-10 MG as directed Orally daily for 30 days Jun, Active Start: 03-31-2023 take 1 capsule by mo [facility] every twenty-four hours Lotrel 10-20 MG 1 capsule Orally daily for 90 days Mar, Active take 1 capsule by mo [facility] every twenty-four hours Lotrel 10-40 MG 1 capsule Orally daily Active ARIPiprazole 10 mg oral tablet (7 sources) Atypical Antipsychotic Start: 11-17-2023 take 10 mg by mouth once daily Aripiprazole Active 10 MG PO Daily February 10, 2024 12:00am Start: 05-13-2021 take 1 mg by mouth once daily Abilify 10 mg Tab mg tab(s), Oral, Daily, Refills(s) 0 Start Date: 05/13/21 Status: Ordered Aspir-81 81 MG (20 sources) take 1 tablet by bernadette once daily Aspir-81 81 MG 1 tablet Orally Once a day Active take 1 tablet by mouth once kavon y Aspir-81 81 MG 1 tablet Orally Once a day *please review for potential _update for e-prescription and drug interaction check* Active aspirin 81 mg delayed release oral tablet (8 sources) Platelet Aggregation Inhibitor, Nonsteroidal Anti-inflammatory Drug Start: 11-06-2023 take 81 mg by mouth once daily Aspirin Active 81 MG PO Daily November 06, 2023 12:00am Start: 02-13-2020 take 1 mg by mouth once daily aspirin 81 mg oral tablet mg tab(s), Oral, Daily, Refills(s) 0 Start Date: 02/13/20 Status: Ordered celecoxib 200 mg oral capsule (20 sources) Nonsteroidal Anti-inflammatory Drug Start: 11-06-2023 take 200 mg by mouth once daily Celecoxib Active 200 MG PO Daily November 06, 2023 12:00am Start: 02-13-2020 take 1 mg by mouth twice daily CeleBREX 200 mg Cap mg cap(s), Oral, BID, Refills(s) 0 Start Date: 02/13/20 Status: Ordered take 1 capsule by [facility] every twenty-four hours CeleBREX 200 MG 1 capsule with food Orally Once a day Active dexamethasone 4 mg oral tablet (1 source) Corticosteroid Start: 05-30-2023 take 1 tablet by mouth once daily dexamethasone 4 mg Tab 4 mg = 1 tab(s), Oral, Daily, # 6 tab(s), Refills(s) 0, Pharmacy: [facility]/pharmacy #[id number], 182, cm, 05/27/23 13:18:00 EDT, Height/Length Dosing, 68.1, kg, 05/27/23 13:18:00 EDT, Weight Dosing Start Date: 05/30/23 Status: Ordered DuoDERM CGF Spots Extra Thin - (15 sources) Start: 03-31-2023 DuoDERM CGF Spots Extra Thin - as directed Externally qd for 30 days Mar, Active 24 hr mirabegron 50 mg extended release oral tablet (1 source) beta3-Adrenergic Agonist Start: 03-22-2024 End: 07-20-2024 take 1 tablet by mouth once daily Myrbetriq 50 mg oral tablet, extended release 50 mg = 1 tab(s), Oral, Daily, X 30 day(s), # 30 tab(s), Refills(s) 3, [id number], cm, 03/22/24 10:58:00 EDT, Height/Length Dosing, 70.5, kg, 03/22/24 10:58:00 EDT, Weight Dosing Start Date: 03/22/24 Stop Date: 07/20/24 Status: Ordered omeprazole 20 mg delayed release oral capsule (4 sources) Proton Pump Inhibitor Start: 10-18-2023 End: 10-18-2023 take 20 mg by mouth once daily Omeprazole Active 20 MG PO Daily October 18, 2023 1:35pm pantoprazole 40 mg delayed release oral tablet (20 sources) Proton Pump Inhibitor Start: 02-13-2020 End: 02-10-2024 take 1 tablet by mouth once daily Pantoprazole [address] Tab 40 mg = 1 tab(s), Oral, Daily, Refills(s) 0 Start Date: 02/13/20 Status: Ordered pravastatin sodium 80 mg oral tablet (20 sources) HMG-CoA Reductase Inhibitor Start: 11-11-2023 take 1 tablet by mouth once daily in the evening Pravastatin Active 0 .ROUTE .COMPLEX 90 November 11, 2023 8:43pm TAKE 1 TABLET BY MOUTH EVERY DAY IN THE EVENING Start: 02-13-2020 End: 11-11-2023 take 1 tablet by mouth once daily pravastatin 80 mg Tab 80 mg = 1 tab(s), Oral, Daily, Refills(s) 0 Start Date: 02/13/20 Status: Ordered pregabalin 150 mg oral capsule (20 sources) Start: 11-06-2023 take 1 capsule by mouth three times daily Lyrica 150 mg Cap 150 mg = 1 cap(s), Oral, TID, Refills(s) 0 Start Date: 11/12/23 Status: Ordered Start: 07-27-2023 take 1 capsule by [facility] every eight hours Lyrica 150 MG 1 capsule Orally 3 times a day for 90 days Jul, Active Start: 10-30-2022 take 1 capsule by [facility] every eight hours Lyrica 150 MG 1 capsule Orally 3 times a day Sep, Active Start: 02-13-2020 take 1 capsule by [facility] three times daily Lyrica 100 mg Cap 100 mg = 1 cap(s), Oral, TID, Refills(s) 0 Start Date: 02/13/20 Status: Ordered take 1 capsule by [facility] every eight hours Lyrica 150 MG 1 capsule Orally 3 times a day Active rOPINIRole 1 mg oral tablet (20 sources) Nonergot Dopamine Agonist Start: 11-06-2023 take 1 mg by mouth once daily Ropinirole Active 1 MG PO Daily November 06, 2023 12:00am Start: 02-13-2020 take 1 tablet by bernadette three times daily Requip 1 mg Tab mg tab(s), Oral, TID, Refills(s) 0 Start Date: 02/13/20 Status: Ordered take 1 tablet by bernadette once daily rOPINIRole HCl 1 MG TAKE [...] # 30 tab(s), Refills(s) 3, Pharmacy: [facility]/pharmacy #[id number], 183, cm, 12/02/22 8:18:00 [...] Start: 05-27-2023 take 3 tablets by mo [facility] once daily at bedtime traZODONE 100 mg [...] Start: 02-13-2020 take 2 tablets by mo ut once daily divalproex sodium 500 mg ER [...] Refills(s) 0 Start Date: 02/13/20 Status: Ordered Completed/Discontinued Medications Medication Drug Class(es) Dates Sig (Normalized) Sig (Original) buprenorphine 0.15 mg buccal film (20 sources) Partial Opioid Agonist Start: 11-12-2023 Belbuca 150 mcg buccal film 150 mcg = 1 EA, Buccal, q12hr, Refills(s) 0 Start Date: 11/12/23 Status: Ordered Start: 11-06-2023 End: 11-15-2023 Buprenorphine Hcl (Belbuca) 150 mcg film Discontinued 150 MCG BUCCAL Every 12 hours November 06, 2023 12:00am November 15, 2023 6:07pm Start: 09-16-2023 End: 01-13-2024 buprenorphine 20 mcg/hr guerrier sdermal film, extended release 1 patch(es), TransDermal, qWeek, Refill(s) 0 Start Date: 11/12/23 Status: Ordered Start: 08-10-2023 Buprenorphine 20 MCG/HR 1 patch [...] the gum Bucally every 12 hrs Active methylphenidate hydrochloride 20 mg oral tablet (20 sources) Central Nervous System Stimulant Start: 11-06-2023 End: 02-10-2024 take 30 mg by mouth once daily Methylphenidate Hcl Discontinued 30 MG PO Daily November 06, 2023 12:00am February 10, 2024 10:40am Start: 01-17-2020 take 1.5 tablets by mouth every twenty-four hours Ritalin 20 MG 1.5 tablet Orally daily for [address] Aguilera Dec, Active Problems Active Problems Problem Classification Problem Date Documented Date Episodic/Chronic Bacterial infection; unspecified site (1 source) Bacteremia; Translations: [Bacteremia] Onset: 05-29-2023 Episodic Cancer of head and neck (7 sources) Malignant tumor of tonsillar pillar; Translations: [...] prostate] Onset: 11-30-2022 Chronic Cancer of prostate (9 sources) Personal history of malignant neoplasm [...] [Thrombocytopenia, unspecified] Chronic Deficiency and other anemia (3 sources) Pancytopenia; Translations: [Other pancytopenia] 11-12-2023 Chronic Deficiency and other anemia (1 source) Anemia; Translations: [Anemia, unspecified] Episodic Deficiency and other anemia (1 source) Anemia, unspecified Episodic Diseases of white blood cells (1 source) Leukopenia; Translations: [Decreased white blood cell count, unspecified] Chronic Disorders of lipid metabolism (20 sources) Hypercholesterolemia; Translations: [Pure hypercholesterolemia, unspecified] Onset: 08-04-2018 Chronic Diverticulosis and diverticulitis (1 source) Diverticular disease 01-27-2024 Chronic Esophageal disorders (20 sources) Gastro-esophageal reflux disease with esophagitis; Translations: [Gastroesophageal reflux disease with esophagitis without hemorrhage] Onset: 08-04-2018 Chronic Essential hypertension (20 sources) Essential hypertension; Translations: [Essential (primary) hypertension] Onset: 04-01-2011 Chronic Genitourinary symptoms and ill-defined conditions (20 sources) Mixed incontinence; Translations: [Incontinence] Onset: 12-02-2022 Chronic Genitourinary symptoms and ill-defined conditions (19 sources) Increased frequency of urination; Translations: [Isolated proteinuria] Onset: 05-27-2023 06-18-2020 Episodic Headache; including migraine (3 sources) Chronic tension-type headache; Translations: [Chronic tension-type headache, intractable] Onset: 08-12-2018 Chronic Headache; including migraine (5 sources) Headache; Translations: [Headache, unspecified] Onset: 08-04-2018 [...] sources) H/O: high risk medication; Translations: [Other rat exterminator (current) drug therapy] Episodic Other circulatory disease (1 source) Cardiovascular symptoms; Translations: [Other specified symptoms and signs involving the circulatory and respiratory systems] Episodic Other connective tissue disease (9 sources) Impingement syndrome of shoulder region; Translations: [Shoulder impingement syndrome] Episodic Other connective tissue disease (1 source) Fibromyalgia; Translations: [Fibromyalgia] Episodic Other diseases of bladder and urethra (1 source) Detrusor overactivity; Translations: [Overactive bladder] Onset: 03-22-2024 Chronic Other diseases of bladder and urethra (1 source) Overactive bladder 03-22-2024 Chronic Other hematologic conditions (2 sources) Splenic cyst 11-12-2023 Episodic Other hereditary and degenerative nervous system conditions (5 sources) Restless legs; Translations: [Restless legs syndrome] Onset: 08-04-2018 Chronic Other liver diseases (2 sources) Fatty (change of) liver, not elsewhere classified; Translations: [Nonalcoholic fatty liver disease] 11-06-2023 Chronic Other liver diseases (2 sources) Steatosis of liver 11-12-2023 Chronic Other lower respiratory disease (1 source) Dyspnea; Translations: [Other forms of dyspnea] Episodic Other male genital disorders (9 sources) Induratio penis plastica; 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] Onset: 12-09-2011 Chronic Other male genital disorders (3 sources) Secondary erectile dysfunction; 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] Onset: 12-02-2022 Chronic Other male genital disorders (6 sources) Erectile dysfunction following radical prostatectomy 12-02-2022 [...] Chronic Other nutritional; endocrine; and metabolic disorders (4 sources) Abnormal weight loss; Translations: [Abnormal weight loss] Onset: 11-17-2023 Episodic Other nutritional; endocrine; and metabolic disorders (6 sources) Abnormal weight loss; Translations: [Loss of weight] Episodic Other nutritional; endocrine; and metabolic disorders (2 sources) Unexplained weight loss ; Translations: [Abnormal weight loss] 11-01-2023 Episodic Other screening for suspected conditions (not mental disorders or infectious disease) (8 sources) Raised prostate specific antigen; Translations: [Elevated prostate specific antigen [PSA]] Resolved: 06-14-2020 03-12-2020 Episodic Other skin disorders (1 source) Ingrowing nail; Translations: [Ingrowing nail] Episodic Residual codes; unclassified (20 sources) Obstructive sleep apnea syndrome; Translations: [Obstructive sleep apnea (adult) (pediatric)] Onset: 08-04-2018 11-06-2023 Chronic Residual codes; unclassified (7 sources) Obstructive sleep apnea (adult) (pediatric); Translations: [Obstructive sleep apnea (adult)(pediatric)] Chronic Residual codes; unclassified (1 source) Sleep apnea; Translations: [Sleep apnea, unspecified] Onset: 08-04-2018 Chronic Residual codes; unclassified (9 sources) Insomnia; Translations: [Insomnia, unspecified] Episodic Residual codes; unclassified (2 sources) Sleep disorder 11-12-2023 Episodic Respiratory failure; insufficiency; [...] source) High risk drug monitoring status; Translations: [alf (current) use of opiate analgesic] Onset: 02-09-2019 [...] Test Name Value Interpretation Reference Range Facility Urology Office/Clinic Noteon 03-22-2024 Urology Office/Clinic Note Urology Office/Clinic Note Chief Complaint 1 year follow up with PSA HPI Staff 1 year follow up w/PSA DX: Hx of Prostate Cancer, Mixed Incontinence & ED S/p open radical prostatectomy (nerve sparing) by DLS and PRW 05/09/20 *Never started Sildenafil 50mg PRN PSA: 05/06/21 - 0.05 11/04/21 - 0.05 11/30/22 - <0.13 03/12/23 - <0.13 01/17/24- <0.13 PVR: 44 ml Dysuria: denies Incomplete bladder emptying: yes Hematuria: denies visible blood Frequency: once an hour Urgency: yes Nocturia: 3 x a night Stream: denies hesitancy, has a steady stream Leaking: yes at night Post void dripping: yes Wearing pads/ Depends: wears depends at night Urge incontinence: yes Stress incontinence: denies Incontinence without Sensory Awareness: denies Abdominal pain: denies Flank pain: denies Sexual complaints: _ History of Present Illness Tests reviewed: reviewed UA, PSA I have reviewed the previous health record information and history for this patient from Dr. Torres. I have reviewed and verified the staff HPI to be accurate for this encounter. Review of Systems PHQ Score Initial Depression Screen Score: 0 SCORE ROS - Provider Constitutional: denies weight loss, [...] HPI. Physical Exam Vitals & Measurements HR: 53(Peripheral) RR: 16 BP: 130/84 HT: 72 in HT: 183 cm WT: 70.5 kg WT: 155.1 lb BMI: 21.05 General Appearance: alert, no distress, well nourished, well developed male. Assessment/Plan 64 yo male with history of intermediate risk prostate cancer s/p prostatectomy 2019 here to follow up PSA. 1. History of prostate cancer (Z85.46: Personal history of malignant neoplasm of prostate) PSA: 05/06/21 - 0.05 11/04/21 - 0.05 11/30/22 - <0.13 03/12/23 - <0.13 03/17/23 - <0.1 ([facility]) 01/17/24 - <0.13 TRUS/bx 02/29/20 - Kael 7 (3+4) x 3 cores and Kael 6 (3+3) x 5 cores. S/p open radical prostatectomy (nerve sparing) by DLS and PRW 05/09/20 - pT2, pNX Prostate adenocarcinoma, grade group 2, tertiary pattern 5 <5%. Neg margins. PSA remains stable/undetectable. Will cont to monitor annually -PSA due 12/2024. 2. OAB (overactive bladder) (N32.81: Overactive bladder) PVR 44 ml. UA today negative for blood and infection. IPSS 18 (12). C/o daytime urinary frequency and leakage at nighttime. Does limit fluids before bed. No daytime urgency or incontinence. Discussed starting medication to help with daytime frequency. If pt improves from oral med, Botox can be considered. Pt would like to try medications at this time Follow up 2-3 mos with PVR or sooner if needed. Pt understands and agrees with plan. -Start Myrbetriq 50 mg qd. SEs discussed. Rx sent to [facility]. Pt to call if cost prohibitive, would prescribe anticholinergic. SEs of anticholinergics discussed. 3. Erectile dysfunction after radical prostatectomy (N52.31: Erectile dysfunction following radical prostatectomy) Has not been able to achieve erection after surgery. [1] Last took nitro product 7-8 yrs ago. No hx of RI [2] IAN 1 (0). Pt was to start Sildenafil 50 mg prn at prior OV but he has not had the chance to try this med yet. Follow-up With When Contact Information Brian LUGO, Kayla Dubose, URL, URO Additional Instructions: 2-3 mos with PVR (new med) Patient Education Overactive Bladder, Adult Botulinum Toxin Bladder Injection I, Jazmine Bear, personally scribed for Dr. Torres on 03/22/2024 11:18:37. . Documentation recorded by the scribe, Jazmine Bear, accurately reflects the services(s) I performed and decisions made by me. Authenticated by Dr. Torres on 03/22/2024 12:12:35. Problem List/Past Medical History Ongoing Abnormal weight loss Chronic headaches Depression Diverticulosis Elevated PSA Erectile dysfunction after radical prostatectomy Essential hypertension Fatty liver Frequent urination GERD (gastroesophageal reflux disease) History of prostate cancer HLD (hyperlipidemia) Lumbar spondylosis Microscopic hematuria Mixed incontinence OAB (overactive bladder) Pancytopenia Post-void dribbling Prostate cancer Proteinuria RLS (restless legs syndrome) Sleep disorder Splenic cyst Squamous cell carcinoma of left tonsil Thrombocytopenia Urge incontinence Historical Recurrent major depression Procedure/Surgical History Colonoscopy (01/26/2024), EGD - esophagogastroduodenoscopy (01/26/2024), Radical retropubic prostatectomy (05/09/2020), Transrectal biopsy of prostate (more content not included)... Normal [facility] Comment on above: Result Comment: Elec tronically Signed By: Kayla Torres MD\.br\Date and Time Signed: 03/22/24 12:12 EDT\.br\Electronically Co-Signed By: Jazmine Bear\.br\Date and Time Co-Signed: 03/22/24 11:19 EDT Reminderson 01-28-2024 Reminders Reminders From: Mellisa Vicekrs LPN To: GSN - Clinical; Sent: 01/28/2024 12:19:52 EDT Show up: 12/25/2033 07:00:00 EDT Subject: colonoscopy recall Due Date/Time: 01/25/2034 07:00:00 EDT Reminder/Recall Patient due for screening colonoscopy 01/25/2034. Normal [facility] Basophils/100 WBC Manual cnt (Bld)on 01-17-2024 Basophils/100 WBC (Bld) 0.0 % Low 0.2-2.0 [facility] Cholesterol in LDL Calc [Mas s/Vol]on 01-17-2024 Cholesterol in LDL [Mass/Vol] 90.0 mg/dL [facility] Comment on above: <100 mg/dl [id number] 0-129 mg/dl NEAR OR ABOVE [id number] mg/dl BORDERLINE [id number] mg/dl HIGH>190 mg/dl VERY HIGH Cholesterol in VLDL Calc [Ma ss/Vol]on 01-17-2024 Cholesterol in VLDL [Mass/Vol] 8.8 mg/dL [facility] Eosinophils/100 WBC Manual c nt (Bld)on 01-17-2024 Eosinophils/100 WBC (Bld) 0.0 % Low 0.9-7.0 [facility] Erythrocyte distribution wid th Auto (RBC) [Ratio]on 01-17-2024 Erythrocyte distribution width (RBC) [Ratio] 12.9 % 11.0-15.0 [facility] Estimated glomerular filtrat ion rate (GFR) non- Americanon 01-17-2024 GFR/1.73 sq M.predicted among non-blacks MDRD (S/P/Bld) [Vol rate/Area] mL/min/{1.73_m2} >=60 [facility] Globulin Calc (S) [Mass/Vol] on 01-17-2024 Globulin (S) [Mass/Vol] 3.3 g/dL [facility] Glucose mean value [Mass/vol ume] in Blood Estimated from glycated hemoglobinon 01-17-2024 Average glucose Estimated from glycated hemoglobin (Bld) [Mass/Vol] 103 mg/dL [facility] Hematocrit Auto (Bld) [Volum e fraction]on 01-17-2024 Hematocrit (Bld) [Volume fraction] 38.8 % Low 42.0-54.0 [facility] Hemoglobin [Mass/volume] in Bloodon 01-17-2024 Hemoglobin (Bld) [Mass/Vol] 12.6 g/dL Low 14.0-18.0 [facility] Laboratory - Chemistry and C hemistry - challengeon 01-17-2024 Albumin [Mass/Vol] 3.4 g/dL 3.4-5.0 [facility] ALP [Catalytic activity/Vol] 86 U/L 46-116 [facility] ALT [Catalytic activity/Vol] 17 U/L 16-63 [facility] AST [Catalytic activity/Vol] 9 U/L Low 15-37 [facility] Bilirubin [Mass/Vol] 0.7 mg/dL 0.2-1.0 [facility] Calcium [Mass/Vol] 9.5 mg/dL 8.5-10.1 [facility] Chloride [Moles/Vol] 103 mmol/L 98-107 [facility] Cholesterol [Mass/Vol] 175 mg/dL <=200 [facility] Cholesterol in HDL [Mass/Vol] 77 mg/dL High 40-60 [facility] Comment on above: > or =60 mg/dl - LOW CARDIOVASCULAR RISK<40 mg/dl - HIGH CARDIOVASCULAR RISK CO2 [Moles/Vol] 34.2 mmol/L High 21.0-32.0 [facility] Creatinine [Mass/Vol] 1.04 mg/dL 0.70-1.30 [facility] GFR/1.73 sq M.predicted MDRD (S/P/Bld) [Vol rate/Area] mL/min/{1.73_m2} >=60 [facility] Glucose [Mass/Vol] 80 mg/dL 74-106 [facility] Potassium [Moles/Vol] 4.5 mmol/L 3.5-5.1 [facility] Protein [Mass/Vol] 6.7 g/dL 6.4-8.2 [facility] Sodium [Moles/Vol] 141 mmol/L 136-145 [facility] Triglyceride [Mass/Vol] 44 mg/dL <=150 [facility] TSH Qn 2.798 m[IU]/L 0.358-3.74 0 [facility] Urea nitrogen [Mass/Vol] 23.0 mg/dL High 7.0-18.0 [facility] Urea nitrogen/Creatinine [Mass ratio] 22.1 mg/mg [facility] Laboratory - Hematology and Cell countson 01-17-2024 HbA1c (Bld) [Mass fraction] 5.2 % 4.5-6.2 [facility] Comment on above: ADA RECOMMENDED LIMI T 4.0 - 6.0ADA THERAPEUTIC TARGET < 7.0ACTION SUGGESTED> 7.0 Lymphocytes/100 WBC (Bld) 5.0 % Low 20.5-60.0 [facility] Monocytes/100 WBC (Bld) 6.0 % 1.7-12.0 [facility] Leukocytes [#/volume] correc roxi for nucleated erythrocytes in Blood by Automated counon 01-17-2024 WBC corrected for nucl RBC Auto (Bld) [#/Vol] 8.6 10 3/uL 4.0-11.0 [facility] MCH Auto (RBC) [Entitic mass ]on 01-17-2024 MCH (RBC) [Entitic mass] 28.8 pg 25.9-34.0 [facility] MCHC Auto (RBC) [Mass/Vol]on 01-17-2024 MCHC (RBC) [Mass/Vol] 32.5 g/dL 29.9-35.2 [facility] MCV Auto (RBC) [Entitic vol] on 01-17-2024 MCV (RBC) [Entitic vol] 88.8 fL 80.0-94.0 [facility] Microalbumin [Mass/volume] i n Urineon 01-17-2024 Albumin DL <= 20 mg/L (U) [Mass/Vol] 1.5 mg/dL <=30.0 [facility] No Panel Informationon 01-16 Absolute Basophils (Manual) 0.00 10 3/uL 0.00-0.10 [facility] Eosinophils # (Manual) 0.00 10 3/uL 0.00-0.70 [facility] Lymphocytes # (Manual) 0.43 10 3/uL Low 1.20-3.80 [facility] Monocytes # (Manual) 0.51 10 3/uL 0.30-0.80 [facility] Prostate Specific Antigen Screen <0.13 ng/mL <=4.00 [facility] Segmented Neutrophils # (Manual) 7.65 10 3/uL High 1.4-6.5 [facility] Platelet mean volume Auto (B ld) [Entitic vol]on 01-17-2024 Platelet mean volume (Bld) [Entitic vol] 11.0 fL 9.5-13.5 [facility] Platelets Auto (Bld) [#/Vol] on 01-17-2024 Platelets (Bld) [#/Vol] 135 10 3/uL Low 150-450 [facility] RBC Auto (Bld) [#/Vol]on RBC (Bld) [#/Vol] 4.37 10 6/uL Low 4.70-6.10 [facility] Segmented neutrophils/100 WB C Manual cnt (Bld)on 01-17-2024 Segmented neutrophils/100 WBC (Bld) 89.0 % [facility] Serum or plasma albumin/glob ulin mass ratioon 01-17-2024 Albumin/Globulin [Mass ratio] 1.0 {ratio} [facility] Serum or plasma anion gap de terminationon 01-17-2024 Anion gap [Moles/Vol] 8.3 mmol/L [facility] [facility] Serum or plasma total choles terol/high density lipoprotein (HDL) cholesterol mass chacorta 01-17-2024 Cholesterol.total/Ch olesterol in HDL [Mass ratio] 2.3 {ratio} [facility] Comment on above: 3.3 - 4.4 LOW RISK4. 4 - 7.1 AVERAGE RISK7.1 - 11.0 MODERATE RISK>11.0 HIGH RISK Insurance Correspondenceon 0 12-10-2023 Insurance Correspondence [id number]#1.00TIFF Normal [facility] Consent for Procedure/Surger yon 11-18-2023 Consent for Procedure/Surgery [id number]#1.00TIFF Normal [facility] Ambulatory Visit Summaryon 0 11-17-2023 Ambulatory Visit Summary GEETAEVELYNE DURANKIRTI Kraft :1960 Visit Date:11/17/2023 Ambulatory Visit Instructions Your Care Team Attending Physician - CHRISTIAN LUGO, Giorgio Davidson Primary Care Physician - SAMMY AGUILERA DO [...] LUGO, Kayla Dubose Where: [facility] Transfer Inon 11-09-2023 Transfer In [id number]#1.00TIFF [facility] Physician Referralon 024 Physician Referral [id number]#1.00TIFF [facility] Insurance Correspondenceon 09-20-2022 Insurance Correspondence [id number]#1.00TIFF [facility] Reportability Response - Pub lic Healthon 06-03-2023 Reportability Response - Public Health {[id number]}XML [facility] Insurance Correspondence Off iceon 06-01-2023 Insurance Correspondence Office [id number]#1.00TIFF Normal [facility] Discharge Instructionson Discharge Instructions [id number]#1.00TIFF Normal [facility] Insurance Correspondence Off iceon 05-31-2023 Insurance Correspondence Office [id number]#1.00TIFF Normal [facility] Insurance Correspondence Office [id number]#1.00TIFF Normal [facility] Auto Diffon 05-30-2023 Basophils/100 WBC (Bld) 0.3 % Normal 0.0-2.0 [facility] Comment on above: Order Comment: Order Added by Discern Expert. Performed By: #### 2 805114, 2406008, 3461530, 82689120, 2820982 ####[facility] [address] [place] [address] Basophils/Leukocytes Auto (Bld) [Pure # fraction] 0.0 E9/L Normal 0.0-0.2 [facility] Comment on above: Order Comment: Order Added by Discern Expert. Performed By: #### 2 947833, 8424308, 2832785, 20623620, 6013105 ####[facility] [address] [place] [address] Eosinophils/100 WBC (Bld) 0.0 % Normal 0.0-8.0 [facility] Comment on above: Order Comment: Order Added by Discern Expert. Performed By: #### 2 589984, 7994457, 1373501, 25518402, 7156747 ####[facility] [address] [place] [address] Eosinophils/Leukocyt es Auto (Bld) [Pure # fraction] 0.0 E9/L Normal 0.0-0.5 [facility] Comment on above: Order Comment: Order Added by Discern Expert. Performed By: #### 2 496851, 1445105, 6252170, 48433513, 8609819 ####[address] [place] [address] Lymphocytes/100 WBC (Bld) 17.8 % Normal 14.0-50.0 [facility] Comment on above: Order Comment: Order Added by Discern Expert. Performed By: #### 2 390613, 9083586, 4124820, 24709587, 8525379 ####[address] [place] [address] Lymphocytes/Leukocyt es Auto (Bld) [Pure # fraction] 0.8 E9/L Low 1.0-4.0 [facility] Comment on above: Order Comment: Order Added by Discern Expert. Performed By: #### 2 744920, 0431003, 4678483, 09928089, 0662053 ####[address] [address] Monocytes/100 WBC (Bld) 6.9 % Normal 4.0-14.0 [facility] Comment on above: Order Comment: Order Added by Discern Expert. Performed By: #### 2 609506, 3155931, 9744905, 34904148, 3022897 ####[address] [address] Monocytes/Leukocytes Auto (Bld) [Pure # fraction] 0.3 E9/L Normal 0.2-1.0 [facility] Comment on above: Order Comment: Order Added by Discern Expert. Performed By: #### 2 465270, 7609419, 4590686, 66010990, 8463734 ####[address] [address] Neutrophils/100 WBC (Bld) 75.0 % Normal 36.0-75.0 [facility] Comment on above: Order Comment: Order Added by Discern Expert. Performed By: #### 2 157474, 2506706, 6235205, 70885461, 6931097 ####[address] [address] Neutrophils/Leukocyt es Auto (Bld) [Pure # fraction] 3.6 E9/L Normal 2.0-7.5 [facility] Comment on above: Order Comment: Order Added by Discern Expert. Performed By: #### 2 890568, 8350892, 4422659, 63096837, 0034115 ####[facility] [address] [place] [address] BMPon 05-30-2023 Anion gap [Moles/Vol] 9 mmol/L Normal 6-16 [facility] Comment on above: Performed By: #### 2 630560, 0988142, 1026442, 95492903, 6952688 ####[facility] [address] [place] [address] Calcium [Mass/Vol] 8.6 mg/dL Low 8.9-11.1 [facility] Comment on above: Performed By: #### 2 144252, 4063498, 7523039, 28682866, 7683533 ####[facility] [address] [place] [address] Chloride [Moles/Vol] 94 mmol/L Low 101-111 [facility] Comment on above: Performed By: #### 2 532282, 5172916, 2880069, 98680598, 7144948 ####[facility] [address] [place] [address] CO2 [Moles/Vol] 35 mmol/L High 21-31 [facility] Comment on above: Performed By: #### 2 744133, 1401939, 0158382, 94876244, 1766546 ####[facility] [address] [place] [address] Creatinine [Mass/Vol] 0.7 mg/dL Normal 0.5-1.3 [facility] Comment on above: Performed By: #### 2 252200, 8823793, 5798283, 73685438, 1037482 ####[facility] [address] [place] [address] Glucose [Mass/Vol] 88 mg/dL Normal 55-199 [facility] Comment on above: Result Comment: If t his glucose result represents a fasting glucose, interpretation should refer to the following reference range: 55-99 mg/dL Performed By: #### 2 447122, 2681505, 9652741, 35474525, 7086626 ####[facility] [address] [place] [address] Potassium [Moles/Vol] 3.3 mmol/L Low 3.5-5.3 [facility] Comment on above: Performed By: #### 2 941757, 6964376, 2875058, 38343830, 0633295 ####[facility] [address] [place] [address] Sodium [Moles/Vol] 135 mmol/L Normal 135-145 [facility] Comment on above: Performed By: #### 2 576640, 9971460, 3344314, 70297028, 2089530 ####[facility] [address] [place] [address] Urea nitrogen [Mass/Vol] 25 mg/dL High 5-21 [facility] Comment on above: Performed By: #### 2 064790, 7108455, 2636994, 44479138, 8212328 ####[facility] [address] [place] [address] Urea nitrogen/Creatinine [Mass ratio] 36 No Units High 10-20 [facility] Comment on above: Performed By: #### 2 912799, 9098224, 0563992, 71747735, 9242992 ####[facility] [address] [place] [address] CBC w/ Auto Diffon 3 Erythrocyte distribution width (RBC) [Ratio] 13.1 % Normal 10.9-14.2 [facility] Comment on above: Performed By: #### 2 825796, 0086010, 0533026, 81735615, 3973997 ####[facility] [address] [place] [address] Hematocrit (Bld) [Volume fraction] 39.3 % Normal 37.7-49.0 [facility] Comment on above: Performed By: #### 2 896773, 1814487, 8989378, 73729555, 5565272 ####[facility] [address] [place] [address] Hemoglobin (Bld) [Mass/Vol] 13.1 g/dL Low 13.5-17.5 [facility] Comment on above: Performed By: #### 2 227024, 4081926, 7493969, 09457089, 7018233 ####[address] [place] [address] MCH (RBC) [Entitic mass] 28.8 pg Normal 27.0-34.0 [facility] Comment on above: Performed By: #### 2 456723, 8246553, 3842942, 20857291, 2081558 ####[address] MCHC (RBC) [Mass/Vol] 33.3 g/dL Normal 31.4-36.0 [facility] Comment on above: Performed By: #### 2 848589, 5842589, 7035467, 08510897, 7178763 ####[address] [place] [address] MCV (RBC) [Entitic vol] 86.4 fL Normal 80.0-100.0 [facility] Comment on above: Performed By: #### 2 438236, 6682466, 0431557, 92928742, 8762003 ####[facility] [address] [place] [address] Platelet mean volume (Bld) [Entitic vol] 8.5 fL Normal 6.4-10.8 [facility] Comment on above: Performed By: #### 2 380500, 0821464, 9705823, 02721197, 3621216 ####[address] [address] Platelets (Bld) [#/Vol] 167.0 E9/L Normal 150.0-500. 0 [facility] Comment on above: Performed By: #### 2 236760, 3193171, 2734795, 95169096, 0196459 ####[facility] [address] [place] [address] RBC (Bld) [#/Vol] 4.5 E12/L Normal 4.3-5.9 [facility] Comment on above: Performed By: #### 2 679566, 3445574, 3544427, 55105646, 6295760 ####[facility] [address] [place] [address] WBC corrected for nucl RBC Auto (Bld) [#/Vol] 4.8 E9/L Normal 4.0-11.0 [facility] Comment on above: Performed By: #### 2 267101, 1343328, 6061703, 36123310, 5596939 ####[facility] [address] [place] [address] CHEMISTRYOrdered By: SYSTEM SYSTEM on 05-30-2023 Vancomycin trough [Moles/Vol] 13 microgram/mL Normal 10 - 20 mcg/mL [facility] Anion gap [Moles/Vol] 9 mmol/L Normal 6 - 16 mEq/L [facility] Calcium [Mass/Vol] 8.6 mg/dL Low 8.9 - 11. 1 mg/dL [facility] Chloride [Moles/Vol] 94 mmol/L Low 101 - 1 11 mmol/L [facility] CO2 [Moles/Vol] 35 mmol/L High 21 - 31 mmol/L [facility] Creatinine [Mass/Vol] 0.7 mg/dL Normal 0.5 - 1.3 mg/dL [facility] GFR/1.73 sq M.predicted among non-blacks MDRD (S/P/Bld) [Vol rate/Area] 102 mL/min/1.73 m2 Normal >=59mL/min /1.[address] [facility] Chem S Comment on above: Interpretive Data: [...] Summaryon 05-30-2023 Inpatient Patient Summary YENI CONNOR Swapnil :1960 Visit Date:05/27/2023 Inpatient Discharge Instructions Your Care Team Admitting Physician - Steve MCCURDY MDfo Reason for Your Visit Covid-weak/dizzy/SOB Your Diagnosis [...] Pending Diagnostic Test Results None Pharmacy Information [facility] Discharge Instructions Return to ER symptoms change or worsen. Previously Scheduled Follow-Up Appointments Wednesday 10:45 AM EDT With: Brian LUGO, Kayla Dubose Where: [facility] Interdisciplinary Note - Daniel e Manageron 05-30-2023 Interdisciplinary Note - New Car Driver CRM to room to discuss DC planning. Patient is awake, alert and oriented. Patient is from home with his spouse. She will transport at [place]. Patient verified PCP, home DME and insurance. Patient is here as inpatient. Medicare form signed. Patient is here with Weakness, dizziness, and Covid [id number]. Patient is on isolation. Patient is assigned to Dr Spivey, see notes. Patient has been weaned to RA. . Patient was offered DC needs for DME, HH and PM. Patient denied any DC needs. Patient was provided CRM contact, white board updated. Anticipated DC 05/30 or 05/31 CRM following [facility] Comment on above: Result Comment: Elec tronically Signed By: Dolly Copeland\.br\Date and Time Signed: 05/30/23 10:59 EDT Monitor Recordon 05-30-2023 Monitor Record [id number]#1.00TIFF [facility] Monitor Record [id number]#1.00TIFF [facility] Progress Note - Pharmacyon 1 Progress [...] 06:18:00) Lymph Auto: 17.8 % (05/30/23 06:18:00) Coffey Auto: 6.9 % (05/30/23 06:18:00) Eos Auto: 0 % (05/30/23 06:18:00) Basophil Auto: 0.3 % (05/30/23 06:18:00) Neutro Absolute: 3.6 E9/L (05/30/23 06:18:00) Lymph Absolute: 0.8 E9/L Low (05/30/23 06:18:00) Coffey Absolute: 0.3 E9/L (05/30/23 06:18:00) Eos Absolute: [...] Vanco Pk: 25 mcg/mL (05/30/23 06:18:00) Normal [facility] Vanco Peakon 05-30-2023 VANCOMYCIN 25 microgram/mL Normal 20-40 [facility] Comment on above: Order Comment: Gissel hamilton drawn Vancomycin Peak 1 hour after the completion of the 0200 dose on 05/30/23. Thank you.Per Rigoberto nurse draw at 600am per vanco will not be done until 500am heb 05/30/2023 05:18:00 EDT Performed By: #### 2 785991, 5884230, 0656541, 88277386, 67188944, 3736496 #### [facility] [address] [place] [address] Vanco Troughon 05-30-2023 VANCOMYCIN 13 microgram/mL Normal 10-20 [facility] Comment on above: Order Comment: NOTE: Trough is scheduled 1 hour prior to next dose. Thank you. Performed By: #### 2 613765, 9270966, 3064973, 47318288, 90634141, 2032012 #### [facility] [address] [place] [address] eGFRon 05-30-2023 GFR/1.73 sq M.predicted among non-blacks MDRD (S/P/Bld) [Vol rate/Area] 102 mL/min/1.73 m2 Normal >=59 [facility] Comment on above: Order Comment: Order added by Discern Expert. Result Comment: Civil Manager radha kidney disease could be indicated at eGFR's of less than 60 mL/min/1.73m2. Kidney failure is indicated at less than 15 mL/min/1.73m2. Performed By: #### 2 207884, 5104968, 5290285, 77657513, 51090590, 0349650 #### [facility] [address] [place] [address] Auto Diffon 05-29-2023 Basophils/100 WBC (Bld) 0.2 % Normal 0.0-2.0 [facility] Comment on above: Order Comment: Order Added by Discern Expert. Performed By: #### 2 011782, 3709489, 8644918, 41070612, 99040403, 6549192 #### [facility] [address] [place] [address] Basophils/Leukocytes Auto (Bld) [Pure # fraction] 0.0 E9/L Normal 0.0-0.2 [facility] Comment on above: Order Comment: Order Added by Discern Expert. Performed By: #### 2 122829, 2335629, 6686223, 36447354, 67106074, 0535645 #### [facility] [address] [place] [address] Eosinophils/100 WBC (Bld) 0.2 % Normal 0.0-8.0 [facility] Comment on above: Order Comment: Order Added by Discern Expert. Performed By: #### 2 337489, 5833743, 9638021, 77112482, 55201852, 0418685 #### [facility] [address] [place] [address] Eosinophils/Leukocyt es Auto (Bld) [Pure # fraction] 0.0 E9/L Normal 0.0-0.5 [facility] Comment on above: Order Comment: Order Added by Discern Expert. Performed By: #### 2 682784, 3905673, 8387843, 59003671, 53088819, 7151359 #### [facility] [address] [place] [address] Lymphocytes/100 WBC (Bld) 12.6 % Low 14.0-50.0 [facility] Comment on above: Order Comment: Order Added by Discern Expert. Performed By: #### 2 171478, 9931506, 3598903, 63904929, 20336677, 9488558 #### [facility] [address] [place] [address] Lymphocytes/Leukocyt es Auto (Bld) [Pure # fraction] 0.7 E9/L Low 1.0-4.0 [facility] Comment on above: Order Comment: Order Added by Discern Expert. Performed By: #### 2 031296, 2543974, 4048221, 02369235, 31816769, 8697291 #### [facility] [address] [place] [address] Monocytes/100 WBC (Bld) 7.5 % Normal 4.0-14.0 [facility] Comment on above: Order Comment: Order Added by Discern Expert. Performed By: #### 2 062144, 5481316, 7866041, 57289586, 67912333, 1837166 #### [facility] [address] [place] [address] Monocytes/Leukocytes Auto (Bld) [Pure # fraction] 0.4 E9/L Normal 0.2-1.0 [facility] Comment on above: Order Comment: Order Added by Discern Expert. Performed By: #### 2 290400, 5223645, 6864255, 47473533, 45555781, 2122025 #### [facility] [address] [place] [address] Neutrophils/100 WBC (Bld) 79.5 % High 36.0-75.0 [facility] Comment on above: Order Comment: Order Added by Discern Expert. Performed By: #### 2 239173, 2289062, 1965203, 92621199, 77183616, 8291700 #### [facility] [address] [place] [address] Neutrophils/Leukocyt es Auto (Bld) [Pure # fraction] 4.6 E9/L Normal 2.0-7.5 [facility] Comment on above: Order Comment: Order Added by Discern Expert. Performed By: #### 2 493018, 7172477, 0890077, 59826920, 87271562, 1219927 #### [facility] [address] [place] [address] Bili Directon 05-29-2023 Bilirubin.direct [Mass/Vol] 0.1 mg/dL Normal 0.1-0.4 [facility] Comment on above: Order Comment: Order Added by Discern Expert. Performed By: #### 2 807980, 4233832, 8013221, 44340452, 99988537, 4719312 #### [facility] [address] [place] [address] CBC w/ Auto Diffon Erythrocyte distribution width (RBC) [Ratio] 13.3 % Normal 10.9-14.2 [facility] Comment on above: Performed By: #### 2 787181, 1625916, 3024838, 91968802, 38553632, 2217745 #### [facility] [address] [address] Hematocrit (Bld) [Volume fraction] 32.0 % Low 37.7-49.0 [facility] Comment on above: Performed By: #### 2 068014, 7520312, 5854086, 47258533, 60254419, 1052088 #### [facility] [address] [place] [address] Hemoglobin (Bld) [Mass/Vol] 10.9 g/dL Low 13.5-17.5 [facility] Comment on above: Performed By: #### 2 538302, 8680186, 2519972, 80505930, 01907203, 3679074 #### [facility] [address] [place] [address] MCH (RBC) [Entitic mass] 29.4 pg Normal 27.0-34.0 [facility] Comment on above: Performed By: #### 2 199568, 9670375, 8382309, 46202208, 25715356, 9956803 #### [facility] [address] [place] [address] MCHC (RBC) [Mass/Vol] 34.2 g/dL Normal 31.4-36.0 [facility] Comment on above: Performed By: #### 2 725683, 6094941, 6063014, 85887164, 17048119, 6777271 #### [facility] [address] [place] [address] MCV (RBC) [Entitic vol] 85.8 fL Normal 80.0-100.0 [facility] Comment on above: Performed By: #### 2 922524, 4997668, 8120292, 27155543, 52403615, 5799168 #### [facility] [address] [place] [address] Platelet mean volume (Bld) [Entitic vol] 8.3 fL Normal 6.4-10.8 [facility] Comment on above: Performed By: #### 2 276913, 8124402, 9669901, 72257303, 04647394, 2893836 #### [facility] [address] [place] [address] Platelets (Bld) [#/Vol] 156.0 E9/L Normal 150.0-500. 0 [facility] Comment on above: Performed By: #### 2 522861, 2160174, 5765345, 19345883, 25005344, 3864162 #### [facility] [address] [place] [address] RBC (Bld) [#/Vol] 3.7 E12/L Low 4.3-5.9 [facility] Comment on above: Performed By: #### 2 560185, 7389011, 2870118, 79606237, 68046579, 2173556 #### [facility] [address] [place] [address] WBC corrected for nucl RBC Auto (Bld) [#/Vol] 5.8 E9/L Normal 4.0-11.0 [facility] Comment on above: Performed By: #### 2 617363, 9789274, 0721333, 69684697, 19148318, 8235793 #### [facility] [address] [place] [address] CHEMISTRYOrdered By: SYSTEM SYSTEM on 05-29-2023 Albumin [...] 98 mL/min/1.73 m2 Normal >=59mL/min /1.[address] [facility] Chem S Comment on above: Interpretive Data: C hronic kidney disease could be indicated at eGFR's of less than 60 mL/min/1.73m2. Kidney failure is indicated at less than 15 mL/min/1.73m2. Globulin (S) [Mass/Vol] 2.7 g/dL Normal 1.4 - 4.0 gm/dL [facility] Glucose [Mass/Vol] 93 mg/dL Normal 55 - 199 mg/dL [facility] Comment on above: Interpretive Data: I f this glucose result represents a fasting glucose, interpretation should refer to the following reference range: 55-99 mg/dL Potassium [Moles/Vol] 3.7 mmol/L Normal 3.5 - 5.3 mmol/L [facility] Protein [Mass/Vol] 5.2 g/dL Low 6.0 - 7.8 gm/dL [facility] Sodium [Moles/Vol] 139 mmol/L Normal 135 - 145 mmol/L [facility] TSH Qn 1.15 m[IU]/L Normal 0.34 - 5.60 mcIU/mL [facility] Urea nitrogen [Mass/Vol] 27 mg/dL High 5 - 21 mg/dL [facility] Urea nitrogen/Creatinine [Mass ratio] 34 mg/mg High 10 - 20 [facility] CMPon 05-29-2023 Albumin [Mass/Vol] 2.5 g/dL Low 3.3-5.0 [facility] Comment on above: Performed By: #### 2 001734, 0966228, 4066196, 40999052, 15986318, 6665895 #### [facility] [address] [place] [address] Albumin/Globulin (S) [Mass conc ratio] 0.9 Low 1.1-2.2 [facility] Comment on above: Performed By: #### 2 026281, 0651113, 5171873, 70098104, 28127245, 4222490 #### [facility] [address] [place] [address] ALP [Catalytic activity/Vol] 43 Int._Unit/L Normal 21-98 [facility] Comment on above: Performed By: #### 2 956139, 1529578, 3533478, 02276279, 77330173, 4868714 #### [facility] [address] [place] [address] ALT No additional P-5'-P [Catalytic activity/Vol] 10 Int._Unit/L Normal 6-46 [facility] Comment on above: Performed By: #### 2 437515, 8274610, 3986919, 92270619, 21141739, 6902808 #### [facility] [address] [place] [address] Anion gap [Moles/Vol] 7 mmol/L Normal 6-16 [facility] Comment on above: Performed By: #### 2 481445, 5071083, 3320333, 89971210, 03441825, 5877899 #### [facility] [address] [place] [address] AST [Catalytic activity/Vol] 15 Int._Unit/L Normal 5-43 [facility] Comment on above: Performed By: #### 2 431470, 5420618, 4311616, 70845599, 81631671, 4705649 #### [facility] [address] [place] [address] Bilirubin [Mass/Vol] 0.3 mg/dL Normal 0.0-1.1 [facility] Comment on above: Performed By: #### 2 681573, 2975432, 1170030, 93229929, 21327653, 9217784 #### [facility] [address] [place] [address] Calcium [Mass/Vol] 8.6 mg/dL Low 8.9-11.1 [facility] Comment on above: Performed By: #### 2 619339, 7868081, 2011823, 96615292, 80225361, 3151802 #### [facility] [address] [place] [address] Chloride [Moles/Vol] 102 mmol/L Normal 101-111 [facility] Comment on above: Performed By: #### 2 941486, 2075171, 6220221, 83270823, 82852018, 4710708 #### [facility] [address] [place] [address] CO2 [Moles/Vol] 34 mmol/L High 21-31 [facility] Comment on above: Performed By: #### 2 202321, 5272337, 3076630, 97546125, 68945815, 4398836 #### [facility] [address] [place] [address] Creatinine [Mass/Vol] 0.8 mg/dL Normal 0.5-1.3 [facility] Comment on above: Performed By: #### 2 903079, 8966066, 2129166, 27830682, 23349839, 0298873 #### [facility] [address] [place] [address] Globulin (S) [Mass/Vol] 2.7 g/dL Normal 1.4-4.0 [facility] Comment on above: Performed By: #### 2 769864, 9965196, 0971739, 86693165, 63128981, 2112275 #### [facility] [address] [place] [address] Glucose [Mass/Vol] 93 mg/dL Normal 55-199 [facility] Comment on above: Result Comment: If t his glucose result represents a fasting glucose, interpretation should refer to the following reference range: 55-99 mg/dL Performed By: #### 2 061395, 0521440, 3797730, 36627976, 61415063, 1358232 #### [facility] [address] [place] [address] Potassium [Moles/Vol] 3.7 mmol/L Normal 3.5-5.3 [facility] Comment on above: Performed By: #### 2 623391, 9086836, 5391863, 00871694, 88327967, 6926146 #### [facility] [address] [place] [address] Protein [Mass/Vol] 5.2 g/dL Low 6.0-7.8 [facility] Comment on above: Performed By: #### 2 283857, 0601707, 5557509, 01657993, 25036718, 3792320 #### [facility] [address] [place] [address] Sodium [Moles/Vol] 139 mmol/L Normal 135-145 [facility] Comment on above: Performed By: #### 2 711570, 4652905, 9793994, 83251574, 92410890, 8650351 #### [facility] [address] [place] [address] Urea nitrogen [Mass/Vol] 27 mg/dL High 5-21 [facility] Comment on above: Performed By: #### 2 307083, 7412970, 5869071, 31655391, 28601445, 2519330 #### [facility] [address] [place] [address] Urea nitrogen/Creatinine [Mass ratio] 34 No Units High 10-20 [facility] Comment on above: Performed By: #### 2 742841, 5008216, 3916782, 04057158, 20935383, 8721571 #### [facility] [address] [place] [address] HEMATOLOGYOrdered By: SYSTEM SYSTEM on 05-29-2023 Basophils/100 [...] 5.8 E9/L Normal 4.0 - 11.0 E9/L FT HemeAutoSS Monitor Recordon 05-29-2023 Monitor Record [id number]#1.00TIFF Normal [facility] Monitor Record [id number]#1.00TIFF Normal [facility] Monitor Record [id number]#1.00TIFF Normal [facility] TSH With T4fr Reflexon 05-29 TSH Qn 1.15 m[IU]/L Normal 0.34-5.60 [facility] Comment on above: Performed By: #### 2 724793, 5408523, 1594745, 44429222, 67041224, 3441411 #### [facility] [address] [place] [address] eGFRon 05-29-2023 GFR/1.73 sq M.predicted among non-blacks MDRD (S/P/Bld) [Vol rate/Area] 98 mL/min/1.73 m2 Normal >=59 [facility] Comment on above: Order Comment: Order added by Discern Expert. Result Comment: Civil Manager radha kidney disease could be indicated at eGFR's of less than 60 mL/min/1.73m2. Kidney failure is indicated at less than 15 mL/min/1.73m2. Performed By: #### 2 102187, 4440827, 0611904, 12620653, 04165857, 1074907 #### [facility] [address] [place] [address] Auto Diffon 05-28-2023 Basophils/100 WBC (Bld) 0.1 % Normal 0.0-2.0 [facility] Comment on above: Order Comment: Order Added by Discern Expert. Performed By: #### 2 825480, 2844847, 7452826, 20155696, 20108659, 0715063 #### [facility] [address] [place] [address] Basophils/Leukocytes Auto (Bld) [Pure # fraction] 0.0 E9/L Normal 0.0-0.2 [facility] Comment on above: Order Comment: Order Added by Discern Expert. Performed By: #### 2 459247, 5073069, 0494114, 72948572, 98241350, 5536469 #### [facility] [address] [place] [address] Eosinophils/100 WBC (Bld) 0.0 % Normal 0.0-8.0 [facility] Comment on above: Order Comment: Order Added by Discern Expert. Performed By: #### 2 902828, 8812892, 7605346, 95462841, 85046906, 0400295 #### [facility] [address] [place] [address] Eosinophils/Leukocyt es Auto (Bld) [Pure # fraction] 0.0 E9/L Normal 0.0-0.5 [facility] Comment on above: Order Comment: Order Added by Discern Expert. Performed By: #### 2 054074, 0720469, 0088882, 91939998, 96397992, 0073261 #### [facility] [address] [place] [address] Lymphocytes/100 WBC (Bld) 6.8 % Low 14.0-50.0 [facility] Comment on above: Order Comment: Order Added by Discern Expert. Performed By: #### 2 598383, 5902109, 2065135, 82754884, 55729168, 4254426 #### [facility] [address] [place] [address] Lymphocytes/Leukocyt es Auto (Bld) [Pure # fraction] 0.4 E9/L Low 1.0-4.0 [facility] Comment on above: Order Comment: Order Added by Discern Expert. Performed By: #### 2 847358, 3091157, 7642924, 81709132, 34162174, 6401427 #### [facility] [address] [place] [address] Monocytes/100 WBC (Bld) 3.6 % Low 4.0-14.0 [facility] Comment on above: Order Comment: Order Added by Discern Expert. Performed By: #### 2 490752, 0523581, 6412573, 41301726, 85439287, 2010751 #### [facility] [address] [place] [address] Monocytes/Leukocytes Auto (Bld) [Pure # fraction] 0.2 E9/L Normal 0.2-1.0 [facility] Comment on above: Order Comment: Order Added by Discern Expert. Performed By: #### 2 183164, 1574934, 3413795, 09917951, 34225303, 7664418 #### [facility] [address] [place] [address] Neutrophils/100 WBC (Bld) 89.5 % High 36.0-75.0 [facility] Comment on above: Order Comment: Order Added by Discern Expert. Performed By: #### 2 022498, 6292419, 7675147, 46276629, 42764171, 5455941 #### [facility] [address] [place] [address] Neutrophils/Leukocyt es Auto (Bld) [Pure # fraction] 4.9 E9/L Normal 2.0-7.5 [facility] Comment on above: Order Comment: Order Added by Discern Expert. Performed By: #### 2 304402, 6205967, 2721089, 68014622, 95023257, 2956605 #### [facility] [address] [place] [address] BMPon 05-28-2023 Anion gap [Moles/Vol] 10 mmol/L Normal 6-16 [facility] Comment on above: Performed By: #### 2 273243, 9121920, 8847104, 74762255, 00312086, 6596450 #### [facility] [address] [place] [address] Calcium [Mass/Vol] 9.1 mg/dL Normal 8.9-11.1 [facility] Comment on above: Performed By: #### 2 840564, 9312340, 0511211, 62598180, 76390677, 2836459 #### [facility] [address] [place] [address] Chloride [Moles/Vol] 98 mmol/L Low 101-111 [facility] Comment on above: Performed By: #### 2 292955, 6027885, 5775225, 16812972, 26957382, 3444785 #### [facility] [address] [place] [address] CO2 [Moles/Vol] 36 mmol/L High 21-31 [facility] Comment on above: Performed By: #### 2 270058, 2766044, 7008707, 47335861, 23768529, 2179393 #### [facility] [address] [place] [address] Creatinine [Mass/Vol] 0.8 mg/dL Normal 0.5-1.3 [facility] Comment on above: Performed By: #### 2 244970, 6209102, 5084403, 43405683, 21021637, 9848655 #### [facility] [address] [place] [address] Glucose [Mass/Vol] 107 mg/dL Normal 55-199 [facility] Comment on above: Result Comment: If t his glucose result represents a fasting glucose, interpretation should refer to the following reference range: 55-99 mg/dL Performed By: #### 2 428370, 1395192, 1094909, 89218018, 23860862, 0035527 #### [facility] [address] [place] [address] Potassium [Moles/Vol] 4.2 mmol/L Normal 3.5-5.3 [facility] Comment on above: Performed By: #### 2 298978, 3373557, 3593169, 71693890, 28857713, 3896224 #### [facility] [address] [place] [address] Sodium [Moles/Vol] 140 mmol/L Normal 135-145 [facility] Comment on above: Performed By: #### 2 351429, 8302879, 5413441, 18877374, 41529764, 4451442 #### [facility] [address] [place] [address] Urea nitrogen [Mass/Vol] 19 mg/dL Normal 5-21 [facility] Comment on above: Performed By: #### 2 191749, 2255168, 1830539, 82391910, 91736780, 9776700 #### [facility] [address] [place] [address] Urea nitrogen/Creatinine [Mass ratio] 24 No Units High 10-20 [facility] Comment on above: Performed By: #### 2 610622, 0788508, 3170862, 88701245, 16821688, 2044830 #### [facility] [address] [place] [address] CBC w/ Auto Diffon Erythrocyte distribution width (RBC) [Ratio] 13.1 % Normal 10.9-14.2 [facility] Comment on above: Performed By: #### 2 979190, 8880581, 6446738, 19916823, 32084810, 6785721 #### [facility] [address] [place] [address] Hematocrit (Bld) [Volume fraction] 36.2 % Low 37.7-49.0 [facility] Comment on above: Performed By: #### 2 995084, 1596104, 9427837, 65878648, 32741628, 7183081 #### [facility] [address] [place] [address] Hemoglobin (Bld) [Mass/Vol] 12.2 g/dL Low 13.5-17.5 [facility] Comment on above: Performed By: #### 2 571030, 7160705, 1317037, 67519676, 50422399, 9032978 #### [facility] [address] [place] [address] MCH (RBC) [Entitic mass] 29.1 pg Normal 27.0-34.0 [facility] Comment on above: Performed By: #### 2 617361, 1981275, 9682158, 67288490, 08504922, 7285210 #### [facility] [address] [place] [address] MCHC (RBC) [Mass/Vol] 33.7 g/dL Normal 31.4-36.0 [facility] Comment on above: Performed By: #### 2 948131, 6592951, 2786127, 81825046, 00870986, 6827889 #### [facility] [address] [place] [address] MCV (RBC) [Entitic vol] 86.4 fL Normal 80.0-100.0 [facility] Comment on above: Performed By: #### 2 925006, 0893468, 0156489, 08158870, 98417288, 5452376 #### [facility] [address] [place] [address] Platelet mean volume (Bld) [Entitic vol] 7.9 fL Normal 6.4-10.8 [facility] Comment on above: Performed By: #### 2 959811, 8546326, 8530220, 18341390, 00625333, 1394096 #### [facility] [address] [place] [address] Platelets (Bld) [#/Vol] 147.0 E9/L Low 150.0-500. 0 [facility] Comment on above: Performed By: #### 2 889018, 0068690, 4764014, 70970459, 19076323, 9336425 #### [facility] [address] [place] [address] RBC (Bld) [#/Vol] 4.2 E12/L Low 4.3-5.9 [facility] Comment on above: Performed By: #### 2 984420, 1868453, 4888546, 12864831, 79390206, 7356730 #### [facility] [address] [place] [address] WBC corrected for nucl RBC Auto (Bld) [#/Vol] 5.5 E9/L Normal 4.0-11.0 [facility] Comment on above: Performed By: #### 2 398167, 6914202, 4465487, 44510773, 89033435, 4329957 #### [facility] [address] [place] [address] CHEMISTRYOrdered By: Lab ROP User on 05-28-2023 Glucose [Mass/Vol] 120 mg/dL High 55 - 99 mg/dL [facility] POC Subsection Comment on above: Result Comment: Beatriz burger RN/ POC Username LUCY KAPADIA Invalid Interpretation Code FT POC Subsection Sodium [Moles/Vol] 715544480769 mmol/L Invalid Interpretation Code FT POC Subsection Sodium [Moles/Vol] [id number] mmol/L Invalid Interpretation Code FT POC Subsection CHEMISTRYOrdered By: SYSTEM SYSTEM on [...] 98 mL/min/1.73 m2 Normal >=59mL/min /1.[address] [facility] Chem S Comment on above: Interpretive Data: C hronic kidney disease could be indicated at eGFR's of less than 60 mL/min/1.73m2. Kidney failure is indicated at less than 15 mL/min/1.73m2. Globulin (S) [Mass/Vol] 3.3 g/dL Normal 1.4 - 4.0 gm/dL [facility] Glucose [Mass/Vol] 107 mg/dL Normal 55 - 199 mg/dL [facility] Comment on above: Interpretive Data: I f this glucose result represents a fasting glucose, interpretation should refer to the following reference range: 55-99 mg/dL Potassium [Moles/Vol] 4.2 mmol/L Normal 3.5 - 5.3 mmol/L [facility] Protein [Mass/Vol] 6.5 g/dL Normal 6.0 - 7.8 gm/dL [facility] Sodium [Moles/Vol] 140 mmol/L Normal 135 - 145 mmol/L [facility] Urea nitrogen [Mass/Vol] 19 mg/dL Normal 5 - 21 mg/dL [facility] Remisol Urea nitrogen/Creatinine [Mass ratio] 24 mg/mg High 10 - [address] [facility] Remisol Capillary Glucose POCon 05-03 Glucose [Mass/Vol] 120 mg/dL High 55-99 [facility] Comment on above: Result Comment: Beatriz burger RN/ Performed By: #### 2 340112, 2042899, 1795314, 06622071, 57937715, 4481421 #### [facility] [address] [place] [address] HEMATOLOGYOrdered By: SYSTEM SYSTEM on 05-28-2023 Basophils/100 [...] 5.5 E9/L Normal 4.0 - 11.0 E9/L [facility] HemeAutoSS Hep Func Panelon 05-28-2023 Albumin [Mass/Vol] 3.2 g/dL Low 3.3-5.0 [facility] Comment on above: Performed By: #### 2 933973, 9074330, 9610530, 05656308, 77894761, 2752460 #### [facility] [address] [place] [address] Albumin/Globulin (S) [Mass conc ratio] 1.0 Low 1.1-2.2 [facility] Comment on above: Performed By: #### 2 455730, 5554764, 6089269, 57254496, 71064749, 1061860 #### [facility] [address] [place] [address] ALP [Catalytic activity/Vol] 58 Int._Unit/L Normal 21-98 [facility] Comment on above: Performed By: #### 2 082123, 7732198, 2469026, 59028090, 93240481, 1691480 #### [facility] [address] [place] [address] ALT No additional P-5'-P [Catalytic activity/Vol] 10 Int._Unit/L Normal 6-46 [facility] Comment on above: Performed By: #### 2 226204, 9340127, 3282035, 43081446, 82209982, 8487034 #### [facility] [address] [place] [address] AST [Catalytic activity/Vol] 16 Int._Unit/L Normal 5-43 [facility] Comment on above: Performed By: #### 2 024511, 5363133, 4648860, 87602536, 23516654, 1951369 #### [facility] [address] [place] [address] Bilirubin [Mass/Vol] 0.5 mg/dL Normal 0.0-1.1 [facility] Comment on above: Performed By: #### 2 163807, 2132517, 3821260, 48464065, 05376637, 6700284 #### [facility] [address] [place] [address] Bilirubin.direct [Mass/Vol] 0.2 mg/dL Normal 0.1-0.4 [facility] Comment on above: Performed By: #### 2 857871, 5438776, 6198853, 37128540, 96385991, 2346554 #### [facility] [address] [place] [address] Bilirubin.indirect [Mass or moles/Vol] 0.4 mg/dL Normal 0.1-0.9 [facility] Comment on above: Performed By: #### 2 300586, 1178248, 8976158, 63991327, 32252754, 9594843 #### [facility] [address] [place] [address] Globulin (S) [Mass/Vol] 3.3 g/dL Normal 1.4-4.0 [facility] Comment on above: Performed By: #### 2 971428, 3417342, 1978868, 92739849, 50225048, 8597494 #### [facility] [address] [place] [address] Protein [Mass/Vol] 6.5 g/dL Normal 6.0-7.8 [facility] Comment on above: Performed By: #### 2 139678, 8796912, 6257363, 31124813, 32616505, 8762962 #### [facility] [address] [place] [address] Inpatient Clinical Summaryon 05-28-2023 Inpatient Clinical Summary [address] [address] Clinical Summary Person Information: Name: YENI CONNOR Age: 63 Years : 1960 Sex: Male PCP: SAMMY AGUILERA DO Marital Status: Race: White Ethnicity: Non- or Language: Lao Visit Id: Visit Reason: Cough; Dizziness; Weakness or fatigue; WEAKNESS, DIZZINESS Speciality: Acuity: Enc Type: Inpatient Med Service: Medical Arrival: 05/27/2023 13:12:53 Discharge: Dispo Type: Admitted as IP to this Hosp Address: [address] [place] [address] [address] [place] [id number] Provider Notes: Diagnosis: 1:COVID-19; 2:Acute hypoxemic respiratory [...] Location Start Finish State [facility] Office Visit [facility] [place] 10:45 AM 03/22/2024 11:00 AM Confirmed Patient Education Information: Normal [facility] Inpatient Patient Summaryon 05-28-2023 Inpatient Patient Summary [place] [address] Patient Discharge Instructions PERSON INFORMATION Name: GEETAEVELYNEYENI A Date of : 1960 Current Date: 05/28/2023 [...] Location Start Finish State [facility] Office Visit [facility] [place] 03/22/2024 10:45 AM 03/22/2024 11:00 AM Confirmed [...] Leaflets: You may receive a survey from [employer] asking you to rate your care experience. Your feedback is important and will help us understand what we do well and how we can improve the quality of care we provide to y (more content not included)... [facility] Insurance Correspondence Off iceon 05-28-2023 Insurance Correspondence Office [id number]#1.00TIFF [facility] Insurance Correspondence Office [id number]#1.00TIFF [facility] Interdisciplinary Note - Daniel e Manageron 05-28-2023 Interdisciplinary Note - New Car Driver CRM to room to discuss DC planning. Patient is awake, alert and oriented. Patient is from home with his spouse. She will transport at [place]. Patient verified PCP, home DME and insurance. Patient is here as inpatient. Medicare form signed. Patient is here with Weakness, dizziness, and Covid [id number]/26. Patient is on isolation. Patient is assigned to Dr Spivey, see notes. Patient is on oxygen at 2L/NC. Patient does not wear any home oxygen. Patient will need weaned or a desat completed at [place]. Patient was offered DC needs for DME, HH and PM. Patient denied any DC needs. Patient was provided CRM contact, ivan board updated. Anticipated DC 05/30? CRM following Normal [facility] Comment on above: Result Comment: Elec tronically Signed By: Dolly Copeland\.br\Date and Time Signed: 05/28/23 09:45 EDT Message from Medicareon 10- Message from Medicare [id number]#1.00TIFF Normal [facility] Monitor Recordon 05-28-2023 Monitor Record [id number]#1.00TIFF Normal [facility] No Panel InformationOrdered By: ANGPROCESSSERVER MICROBIOLOGY on 05-28-2023 Blood Culture Charcoal No growth at 2 days. Final to follow at 7 days. [facility] Blood Culture Charcoal No growth at 2 days. Final to follow at 7 days. [facility] Progress Note - Pharmacyon 1 Progress [...] any questions, please contact the pharmacy at [phone]. Age: 63 Years Allergies: No Known Medication [...] Lymph Auto: 6.8 % Low (05/28/23 06:12:00) Coffey Auto: 3.6 % Low (05/28/23 06:12:00) Eos Auto: 0 % (05/28/23 06:12:00) Basophil Auto: 0.1 % (05/28/23 06:12:00) Neutro Absolute: 4.9 E9/L (05/28/23 06:12:00) Lymph Absolute: 0.4 E9/L Low (05/28/23 06:12:00) Coffey Absolute: 0.2 E9/L (05/28/23 06:12:00) Eos Absolute: [...] % (05/27/23 13:39:00) FMetHb Art: 0.3 % (10/26/23 13:39:00) O2 Sat Art: 98.8 % (05/27/23 13:39:00) manager spanish+ Art: 138 mmol/L (05/27/23 13:39:00) cK+ Art: 4.3 mmol/L (05/27/23 13:39:00) cCa2+ Art: 4.56 mg/dL (05/27/23 13:39:00) cCl- Art: 95 mmol/L Low (05/27/23 13:39:00) cGlu Art: 100 mg/dL High (05/27/23 13:39:00) cLac Art: 0.9 mmol/L (05/27/23 13:39:00) AaDO2 Art: 35.4 mmHg High (05/27/23 13:39:00) a/A (more content not included)... Normal [facility] UA With Cult Reflexon 2022 Bilirubin Ql (U) Negative Normal Negative [facility] Comment on above: Performed By: #### 2 471577, 8960533, 0746200, 49760136, 01758683, 5350751 #### [facility] [address] [place] [address] Clarity (U) CLEAR Normal Clear [facility] Comment on above: Performed By: #### 2 522376, 6325630, 1392069, 27283318, 97684558, 5561343 #### [facility] [address] [place] [address] Color (U) YELLOW Normal Yellow [facility] Comment on above: Performed By: #### 2 751501, 5381295, 3930696, 50181046, 00641833, 7199990 #### [facility] [address] [place] [address] Epithelial cells.squamous LM.HPF (Urine sed) [#/Area] 0-2 Normal 0-2 [facility] Comment on above: Performed By: #### 2 872272, 2318617, 8597750, 69128325, 62613835, 8749170 #### [facility] [address] [place] [address] Glucose Test strip (U) [Mass/Vol] Negative Normal Negative [facility] Comment on above: Performed By: #### 2 956838, 9739249, 5942390, 31260295, 97656797, 1737489 #### [facility] [address] [place] [address] Hemoglobin Ql (U) Negative Normal Negative [facility] Comment on above: Performed By: #### 2 510450, 0735688, 5744745, 50337155, 53035009, 6809554 #### [facility] [address] [place] [address] Ketones (U) [Mass/Vol] Negative Normal Negative [facility] Comment on above: Performed By: #### 2 027429, 1438623, 2343446, 84758509, 68853632, 6067481 #### [facility] [address] [place] [address] Ila.plasma/Lithi um.RBC (Bld) [Mass ratio] 0-3 Normal 0-3 [facility] Comment on above: Performed By: #### 2 274253, 2808851, 6775806, 88780241, 72516428, 4902787 #### [facility] [address] [place] [address] Nitrite Ql (U) Negative Normal Negative [facility] Comment on above: Performed By: #### 2 907962, 5725092, 9988389, 55037645, 42357418, 5150118 #### [facility] [address] [place] [address] pH (U) 6.5 [pH] Invalid Interpretation Code 5.0-9.0 [facility] Comment on above: Performed By: #### 2 061732, 3325976, 3364722, 41802400, 42254019, 5295228 #### [facility] [address] [place] [address] Protein (U) [Mass/Vol] Negative Normal Negative [facility] Comment on above: Performed By: #### 2 073751, 2378031, 6712390, 28518443, 51413796, 2115242 #### [facility] [address] [place] [address] Specific gravity (U) [Rel density] 1.010 Invalid Interpretation Code 1.005-1.03 0 [facility] Comment on above: Performed By: #### 2 341936, 2156865, 2773630, 48622536, 13959344, 2075364 #### [facility] [address] [place] [address] Type of Urine collection method Random Urine Normal [facility] Comment on above: Performed By: #### 2 193393, 0860568, 8295060, 30216721, 82568137, 3088186 #### [facility] [address] [place] [address] Urobilinogen Qn (U) >=8.0 Abnormal 0.0-1.0 [facility] Comment on above: Performed By: #### 2 493950, 5511684, 6582013, 37560426, 18214868, 6495863 #### [facility] [address] [place] [address] WBC Auto Ql (U) Negative Normal Negative [facility] Comment on above: Performed By: #### 2 180388, 8357163, 9979754, 22490786, 67343843, 1738002 #### [facility] [address] [place], [place] [address] WBC LM.HPF (Urine sed) [#/Area] 0-5 Normal 0-5 [facility] Comment on above: Performed By: #### 2 432989, 3425212, 8466786, 18153796, 09290178, 7549180 #### [facility] [address] [place] [address] URINALYSISOrdered By: Kojo Klein on 05-28-2023 Bilirubin [...] AM) Normal Negative [facility] UA Auto SS Ila.plasma/Lithi um.RBC (Bld) [Mass ratio] 0-3 /HPF Normal [...] AM) Invalid Interpretation Code 1.005 - 1.030 [facility] UA Auto SS UA Spec Desc Random Urine (05/28/23 12:53 AM) Normal [facility] UA Auto SS Urobilinogen Qn (U) {Dani'U}/dL Invalid Interpretation Code 0.0 - 1.0 EU/dL [facility] UA Auto SS WBC Auto Ql (U) Negative (05/28/23 12:53 AM) Normal Negative [facility] UA Auto SS WBC LM.HPF (Urine sed) [#/Area] 0-5 /HPF Normal 0-5/HPF [facility] UA Auto SS eGFRon 05-28-2023 GFR/1.73 sq M.predicted among non-blacks MDRD (S/P/Bld) [Vol rate/Area] 98 mL/min/1.73 m2 Normal >=59 [facility] Comment on above: Order Comment: Order added by Discern Expert. Result Comment: Civil Manager radha kidney disease could be indicated at eGFR's of less than 60 mL/min/1.73m2. Kidney failure is indicated at less than 15 mL/min/1.73m2. Performed By: #### 2 799055, 9942312, 7241601, 18768083, 12697744, 0141524 #### [facility] [address] [place] [address] Auto Diffon 05-27-2023 Basophils/100 WBC (Bld) 0.0 % Normal 0.0-2.0 [facility] Comment on above: Order Comment: Order Added by Emma Expert. Performed By: #### 2 063448, [id number], 81264363, 6782262, 25862765, 3503275, 74686926 ####[address] [place] [address] Basophils/Leukocytes Auto (Bld) [Pure # fraction] 0.0 E9/L Normal 0.0-0.2 [facility] Comment on above: Order Comment: Order Added by Emma Expert. Performed By: #### 2 517797, 91653593, 91518534, 4129752, 43998810, 1190616, 58277206 ####[facility] [address] [place] [address] Eosinophils/100 WBC (Bld) 0.1 % Normal 0.0-8.0 [facility] Comment on above: Order Comment: Order Added by Discern Expert. Performed By: #### 2 473803, 67073891, 20400145, 9741717, 79244912, 9418156, 32525257 ####[facility] [address] [place] [address] Eosinophils/Leukocyt es Auto (Bld) [Pure # fraction] 0.0 E9/L Normal 0.0-0.5 [facility] Comment on above: Order Comment: Order Added by Emma Expert. Performed By: #### 2 544659, 64226171, 14416294, 6608425, 66524710, 4835744, 38562504 ####[address] [place] [address] Lymphocytes/100 WBC (Bld) 2.1 % Low 14.0-50.0 [facility] Comment on above: Order Comment: Order Added by Discern Expert. Performed By: #### 2 402582, 34467400, 94493025, 9918015, 20749340, 2967855, 82576535 ####[address] [place] [address] Lymphocytes/Leukocyt es Auto (Bld) [Pure # fraction] 0.2 E9/L Low 1.0-4.0 [facility] Comment on above: Order Comment: Order Added by Discern Expert. Performed By: #### 2 274050, 16822417, 54003480, 0630950, 31064162, 2772815, 36844729 ####[address] [address] Monocytes/100 WBC (Bld) 4.6 % Normal 4.0-14.0 [facility] Comment on above: Order Comment: Order Added by Discern Expert. Performed By: #### 2 260745, 12560066, 40238622, 4834215, 21423322, 1795777, 21069771 ####[address] [address] Monocytes/Leukocytes Auto (Bld) [Pure # fraction] 0.4 E9/L Normal 0.2-1.0 [facility] Comment on above: Order Comment: Order Added by Discern Expert. Performed By: #### 2 333260, 32221981, 63132789, 9222174, 13798770, 7802588, 78582647 ####[address] [address] Neutrophils/100 WBC (Bld) 93.2 % High 36.0-75.0 [facility] Comment on above: Order Comment: Order Added by Discern Expert. Performed By: #### 2 706219, 09956031, 56885825, 1772231, 12343354, 8855257, 86166697 ####[facility] [address] [place] [address] Neutrophils/Leukocyt es Auto (Bld) [Pure # fraction] 8.3 E9/L High 2.0-7.5 [facility] Comment on above: Order Comment: Order Added by Discern Expert. Performed By: #### 2 082548, 17823509, 00587797, 0843531, 35492994, 4537569, 06056069 ####[facility] [address] [place] [address] BMPon 05-27-2023 Creatinine [Mass/Vol] 1.0 mg/dL Normal 0.5-1.3 [facility] Comment on above: Performed By: #### 2 260494, 00933318, 13560769, 0854458, 24974254, 5563551, 45177338 ####[facility] [address] [place] [address] Urea nitrogen [Mass/Vol] 21 mg/dL Normal 5-21 [facility] Comment on above: Performed By: #### 2 163472, 66376606, 54231570, 9232264, 34782236, 4058260, 81525619 ####[facility] [address] [place] [address] Urea nitrogen/Creatinine [Mass ratio] 21 No Units High 10-20 [facility] Comment on above: Performed By: #### 2 030393, 97183054, 59773956, 9842786, 63828062, 4567567, 98856203 ####[facility] [address] [place] [address] Anion gap [Moles/Vol] 13 mmol/L Normal 6-16 [facility] Comment on above: Performed By: #### 2 355940, 79870018, 09160349, 9473836, 88373548, 1432591, 48874735 ####[facility] [address] [place] [address] Calcium [Mass/Vol] 8.4 mg/dL Low 8.9-11.1 [facility] Comment on above: Performed By: #### 2 819816, 74742896, 37270427, 9672578, 68257753, 2983324, 36239084 ####[facility] [address] [place] [address] Chloride [Moles/Vol] 95 mmol/L Low 101-111 [facility] Comment on above: Performed By: #### 2 647056, 42337391, 41193586, 9357323, 75869065, 7370374, 62377443 ####[facility] [address] [place] [address] CO2 [Moles/Vol] 31 mmol/L Normal 21-31 [facility] Comment on above: Performed By: #### 2 889761, 69440307, 17742796, 8858324, 15302880, 8739446, 57802758 ####[facility] [address] [place] [address] Glucose [Mass/Vol] 98 mg/dL Normal 55-199 [facility] Comment on above: Result Comment: If t his glucose result represents a fasting glucose, interpretation should refer to the following reference range: 55-99 mg/dL Performed By: #### 2 154101, 10548785, 91225132, 8799329, 67816720, 8552989, 55813710 ####[facility] [address] [place] [address] Potassium [Moles/Vol] 4.4 mmol/L Normal 3.5-5.3 [facility] Comment on above: Performed By: #### 2 016530, 84598166, 12026897, 6242744, 98717893, 5467493, 13290684 ####[facility] [address] [place] [address] Sodium [Moles/Vol] 135 mmol/L Normal 135-145 [facility] Comment on above: Performed By: #### 2 601090, 09678322, 05527996, 8921182, 35611448, 6795922, 68440792 ####[facility] [address] [place] [address] BNPon 05-27-2023 Int Ctr BNP Pass Normal [facility] Comment on above: Performed By: #### 2 806011, 42492661, 92029886, 7231360, 68303713, 2926772, 36278034 ####[facility] [address] [place] [address] Natriuretic peptide B (Bld) [Mass/Vol] 81 pg/mL High 5-80 [facility] Comment on above: Performed By: #### 2 104258, 36452740, 37097852, 3530962, 12688493, 8593463, 08144993 ####[facility] [address] [place] [address] Blood Gas Art, with Lytes, G myrna, [place] 05-27-2023 a/A Ratio Art 72.70 % Normal >=0.80 [facility] Comment on above: Performed By: #### 4 04682871 #### [facility] [address] [place] [address] AaDO2 Art 35.4 mmHg High 5.0-15.0 [facility] Comment on above: Performed By: #### 4 05317835 #### [facility] [address] [place] [address] Allens Test Not Applicable Normal [facility] Comment on above: Performed By: #### 4 79249792 #### [facility] [address] [place] [address] Base Excess Arterial 9.7 mmol/L Normal >=2.8 [facility] Comment on above: Performed By: #### 4 56079016 #### [facility] [address] [place] [address] cCa2+ Art 4.56 mg/dL Normal 4.40-5.30 [facility] Comment on above: Performed By: #### 4 71739282 #### [facility] [address] [place] [address] cCl- Art 95.0 mmol/L Low 101.0-111. 0 [facility] Comment on above: Performed By: #### 4 18295759 #### [facility] [address] [place] [address] cGlu Art 100 mg/dL High 55-99 [facility] Comment on above: Performed By: #### 4 75255016 #### [facility] [address] [place] [address] cK+ Art 4.3 mmol/L Normal 3.5-5.3 [facility] Comment on above: Performed By: #### 4 44724990 #### [facility] [address] [place] [address] cLac Art .9 mmol/L Normal .5-2.2 [facility] Comment on above: Performed By: #### 4 08590988 #### [facility] [address] [place] [address] manager spanish+ Art 138.0 mmol/L Normal 135.0-145. 0 [facility] Comment on above: Performed By: #### 4 16579035 #### [facility] [address] [place] [address] Drawn by trs Invalid Interpretation Code [facility] Comment on above: Performed By: #### 4 00613441 #### [facility] [address] [place] [address] FCOHb Art 1.6 % Normal 1.5-4.9 [facility] Comment on above: Result Comment: Refe rence range Nonsmoker <1.5% Smoker <5.0% Heavy Smoker <9.0% Performed By: #### 4 23071687 #### [facility] [address] [place] [address] FIO2 BG 21.0 Invalid Interpretation Code [facility] Comment on above: Performed By: #### 4 55137460 #### [facility] [address] [place] [address] FMetHb Art 0.3 % Normal 0.0-1.9 [facility] Comment on above: Performed By: #### 4 38364878 #### [facility] [address] [place] [address] FO2Hb Art 97.0 % Normal 93.0-100.0 [facility] Comment on above: Performed By: #### 4 57727536 #### [facility] [address] [place] [address] HCO3 (Bld) [Moles/Vol] 33.4 mmol/L High 22.0-26.0 [facility] Comment on above: Performed By: #### 4 57699840 #### [facility] [address] [place] [address] Hemoglobin (Bld) [Mass/Vol] 11.7 g/dL Low 12.0-17.0 [facility] Comment on above: Performed By: #### 4 48631422 #### [facility] [address] [place] [address] Oxygen saturation in Blood 98.8 % Normal 95.0-100.0 [facility] Comment on above: Performed By: #### 4 10787176 #### [facility] [address] [place] [address] P CO2 Arterial 58.0 mmHg High 35.0-45.0 [facility] Comment on above: Performed By: #### 4 59292572 #### [facility] [address] [place] [address] P O2 Arterial 94.5 mmHg Normal 80.0-100.0 [facility] Comment on above: Performed By: #### 4 54131702 #### [facility] [address] [place] [address] pH Arterial 7.404 Normal 7.350-7.45 0 [facility] Comment on above: Performed By: #### 4 82386008 #### [facility] [address] [place] [address] Sample Site R Radial Normal [facility] Comment on above: Performed By: #### 4 74914246 #### [facility] [id number] Sample Type Arterial Draw Normal [facility] Comment on above: Performed By: #### 4 88601651 #### [facility] [address] [id number] CBC w/ Auto Diffon 3 Erythrocyte distribution width (RBC) [Ratio] 13.1 % Normal 10.9-14.2 [facility] Comment on above: Performed By: #### 2 657008, 99418398, 22923518, 0519540, 64183676, 1041939, 22702153 ####[facility] [address] [place] [address] Hematocrit (Bld) [Volume fraction] 35.4 % Low 37.7-49.0 [facility] Comment on above: Performed By: #### 2 735257, 17258399, 84931910, 8804460, 39846217, 2050339, 41281083 ####[facility] [address] [place] [address] Hemoglobin (Bld) [Mass/Vol] 11.8 g/dL Low 13.5-17.5 [facility] Comment on above: Performed By: #### 2 406231, 24135936, 97698178, 2477294, 37605955, 0264184, 95737363 ####[facility] [address] [place] [address] MCH (RBC) [Entitic mass] 29.2 pg Normal 27.0-34.0 [facility] Comment on above: Performed By: #### 2 855672, 72705031, 51841903, 0092548, 80486736, 5634877, 21091153 ####[facility] [address] [place] [address] MCHC (RBC) [Mass/Vol] 33.5 g/dL Normal 31.4-36.0 [facility] Comment on above: Performed By: #### 2 801918, 77553603, 45133678, 7434862, 16109781, 9374032, 00689376 ####[facility] [address] [place] [address] MCV (RBC) [Entitic vol] 87.2 fL Normal 80.0-100.0 [facility] Comment on above: Performed By: #### 2 530957, 26057395, 35902737, 7331900, 70689734, 2799939, 40214287 ####[address] [place] [address] Platelet mean volume (Bld) [Entitic vol] 8.1 fL Normal 6.4-10.8 [facility] Comment on above: Performed By: #### 2 669635, 94964265, 05968430, 6243854, 68528146, 3943943, 49270353 ####[address] [address] Platelets (Bld) [#/Vol] 123.0 E9/L Low 150.0-500. 0 [facility] Comment on above: Performed By: #### 2 483370, 32546013, 43169740, 0110228, 48324867, 3221246, 76603968 ####[address] [address] RBC (Bld) [#/Vol] 4.1 E12/L Low 4.3-5.9 [facility] Comment on above: Performed By: #### 2 154683, 79493010, 63387545, 7417809, 54565852, 1119769, 23839966 ####[address] [address] WBC corrected for nucl RBC Auto (Bld) [#/Vol] 8.9 E9/L Normal 4.0-11.0 [facility] Comment on above: Performed By: #### 2 711894, 34563499, 19403776, 8870000, 48490523, 5740480, 62785507 ####[facility] [address] [place] [address] CHEMISTRYOrdered By: SYSTEM SYSTEM on 05-27-2023 Troponin I.cardiac [Mass/Vol] 6.00 pg/mL Low 15.90 - 38.40 pg/mL [facility] Remisol Comment on above: Interpretive Data: T he 95% CI (Confidence Interval) PPV (Positive Predictive Value) for myocardial infarction in females is 38 pg/mL, in males 51 pg/mL. The results should be used in conjunction with clinical conditions of myocardial infarction. ([employer] High Sensitivity Troponin I Instructions For Use, [employer], March 2018) Troponin I.cardiac [Mass/Vol] 6.00 pg/mL Low 15.90 - 38.40 pg/mL [facility] Remisol Comment on above: Interpretive Data: T he 95% CI (Confidence Interval) PPV (Positive Predictive Value) for myocardial infarction in females is 38 pg/mL, in males 51 pg/mL. The results should be used in conjunction with clinical conditions of myocardial infarction. ([employer] High Sensitivity Troponin I Instructions For Use, Diasome, March 2018) Troponin I.cardiac [Mass/Vol] 6.40 pg/mL Low 15.90 - 38.40 pg/mL [facility] Remisol Comment on above: Interpretive Data: T he 95% CI (Confidence Interval) PPV (Positive Predictive Value) for myocardial infarction in females is 38 pg/mL, in males 51 pg/mL. The results should be used in conjunction with clinical conditions of myocardial infarction. ([employer] High Sensitivity Troponin I Instructions For Use, Diasome, March 2018) CHEMISTRYOrdered By: Comfort wood on 05-27-2023 Natriuretic peptide B (Bld) [Mass/Vol] 81 pg/mL High 5 - 80 pg/mL [facility] COAGULATIONOrdered By: Lori Geronimo on 05-27-2023 aPTT Coag (PPP) [Time] 27.2 s Normal 25.1 - 36.5 second(s) [facility] Auto Coag Comment on above: Interpretive Data: [...] the same coagulation reagent and instrumentation as [facility]. Currently there are no coagulation studies available worldwide for children to 14 days, and no normal ranges. Heparin therapeutic range (represented by Anti-Factor Xa activity of 0.2 - 0.4 U/mL) corresponds to PTT of 56.6 - 109.0 sec. INR Coag (PPP) [Relative time] 1.3 {INR} Invalid Interpretation Code [facility] Auto Coag Comment on above: Interpretive Data: I NR results are specifically intended to assess patients stabilized on long-term Anticoagulation therapy suggested INR s Less Intensive Anticoagulation 2.0 3.0 Conventional Range 3.0 4.5 PT Coag (PPP) [Time] 14.2 s High 9.4 - 1 2.5 second(s) [facility] Auto Coag Comment on above: Interpretive Data: [...] the same coagulation reagent and instrumentation as [facility]. Currently there are no coagulation studies available worldwide for children to 14 days, and no normal ranges. Consent for Treatment 05-03 Consent for Treatment [id number] Normal [facility] ED Clinical Summaryon 2022 ED Clinical Summary (Inserted Image. Flora ble to display) [address] [address] ED Clinical Summary Person Information Name: YENI CONNOR [place] Age: 63 Years : 1960 Sex: Male Language: Lao PCP: SAMMY AGUILERA DO Marital Status: Visit Id: Visit Reason: Cough; Dizziness; Weakness or fatigue; WEAKNESS, DIZZINESS Speciality: Acuity: 1 Enc Type: Observation Med Service: Emergency Arrival: 05/27/2023 13:12:53 Discharge: LOS: 000 03:47 Checkin: 05/27/2023 13:12:53 Checkout: 05/27/2023 16:59:23 Dispo Type: Admitted as IP to this [facility] EVENTS: Event Name Event Status Request Date/Time [...] 16:40:23 Patient Care Request 05/27/2023 16:40:24 ADDRESS: [address] [place] [address] [address] [facility] [id number] PHYS DOC NOTES: MEDICAL INFORMATION: Prescriptions Given: [...] DIAGNOSIS: Acute hypoxemic respiratory failure; COVID-19 Normal [facility] ED Note-Physicianon 05-27-20 23 ED Note-Physician Basic [...] and Complexity of Problems Differential Diagnosis: [] [facility] Data External documents reviewed: [] My EKG [...] Therapy PT & PTT Rapid COVID Antigen ([facility]) Saline Lock Insert Troponin 0 Hr. Troponin 3 Hr. Troponin 6 Hr. Troponin 9 Hr. XR Chest Single View Disposition Plan Discharge Prescription List Prescriptions No active prescription medications Follow-up No qualifying data available Attestation Patient seen and evaluated by the physician kindergarten teacher assistant. Attending physician was present in the emergency department and supervised care. This visit was performed by both the physician and an APC. I performed all aspects of the MDM as documented. This report was transcribed using voice recognition software. Every effort was made to ensure accuracy, however, inadvertently computerized reworker mistakes may be present. Appropriate healthcare PPE was used in evaluating this patient. The patient was placed in a mask. The healthcare provider was wearing mask, gloves, and utilizing proper hand hygiene. All equipment was properly cleansed Problem List/Past Medical History Ongoing Elevated PSA Erectile (more content not included)... Normal [facility] Comment on above: Result Comment: Elec tronically Signed By: Barney Duncan PA-C\.br\Date and Time Signed: 05/27/23 16:21 EDT\.br\Electronically Co-Signed By: Samy Benjamin DO\.br\Date and Time Co-Signed: 05/27/23 17:04 EDT ED Patient Education Noteon 05-27-2023 ED Patient Education Note Normal [facility] ED Patient Summaryon 023 ED Patient Summary (Inserted Image. Flora ble to display) [place] [address] Patient Discharge Instructions Person Information Name: YENI CONNOR Age: 63 Years Arrival Date: 05/27/2023 13:12:53 Discharge Diagnosis: Acute hypoxemic respiratory failure; COVID-19 Primary Care Physician: SAMMY AGUILERA DO Provider Information Primary Provider: Samy Benjamin DO Advanced Resource Room Teacher:Barney Duncan PA-C The exam and treatment you received in the Emergency Department were for an urgent problem and are not intended as complete care. It is important that you follow up with a doctor, nurse practitioner, or physician?s kindergarten teacher assistant for ongoing care. If your symptoms [...] opioids can be used to help relieve vapedmgn-sw-ugpmco pain and are often prescribed following a [...] be struggling with addiction, tell your health respiratory care practitioner and ask for guidance or call [facility] National Helpline at 4-922-480-MFOL. e Source: [place] Department of Health and Human Services/Center for Disease Control & Prevention [facility] Medications (more content not included)... Normal [facility] FT Blood GasesOrdered By: Reynold Hu on [...] 4.56 mg/dL Normal 4.40 - 5.30 mg/dL FT Resp Auto SS cCl- Art 95.0 mmol/L Low 101.0 - 111.0 mmol/L FT Resp Auto SS cGlu Art 100 mg/dL High 55 - 99 mg/dL FT Resp Auto SS cK+ Art 4.3 mmol/L Normal 3.5 - 5.3 mmol/L FT Resp Auto SS cLac Art 0.9 mmol/L Normal 0.5 - 2.2 mmol/L [facility] Resp Auto SS manager spanish+ Art 138.0 mmol/L Normal 135.0 - 145.0 mmol/L [facility] Resp Auto SS Drawn by trs Invalid Interpretation Code [facility] Resp Auto SS FCOHb Art 1.6 % Normal 1.5 - 4.9 % [facility] Resp Auto SS Comment on above: Interpretive Data: R eference range Nonsmoker <1.5% Smoker <5.0% Heavy Smoker <9.0% FMetHb Art 0.3 % Normal 0.0 - 1.9 % [facility] Resp Auto SS FO2Hb Art 97.0 % Normal 93.0 - 100.0 % [facility] Resp Auto SS HCO3 (Bld) [Moles/Vol] 33.4 mmol/L High 22.0 - 26.0 mmol/L [facility] Resp Auto SS Hemoglobin (Bld) [Mass/Vol] 11.7 g/dL Low 12.0 - 17.0 gm/dL [facility] Resp Auto SS P CO2 Arterial 58.0 mm[Hg] High 35.0 - 45.[address] [facility] Resp Auto SS P O2 Arterial 94.5 mm[Hg] Normal 80.0 - 100.[address] [facility] Resp Auto SS pH (Bld) 7.404 [pH] Normal 7.350 - 7.450 [facility] Resp Auto SS Sample Site R Radial (05/27/23 1:39 PM) Normal [facility] Auto SS Sample Type Arterial Draw (05/27/23 1:39 PM) Normal [facility] Auto SS Sodium [Moles/Vol] 21.0 mmol/L Invalid Interpretation Code [facility] Resp Auto SS Influenza A&B Agon 3 Influenzae A Ag Negative Normal Negative [facility] Comment on above: Performed By: #### 2 813333, 1432819, 7949232, 29038548, 03349372, 9784497 #### [facility] [address] [place] [address] Influenzae B Ag Negative Normal Negative [facility] Comment on above: Result Comment: Test sensitivity and specificity vary for age group, specimen type, antigen types, and prevalence of disease. Test results must be evaluated in conjunction with other clinical data available to the physician. Individuals who received nasally administered Influenza A vaccine may have positive test results up to 3 days after vaccination. Performed By: #### 2 000911, 9732563, 0276672, 36625676, 24644387, 3992555 #### [facility] [address] [place] [address] MICRO OTHER TESTSOrdered By: Lori Geronimo on 05-27-2023 Influenzae A Ag Negative (05/27/23 1:47 PM) Normal Negative [facility] Sero Influenzae B Ag Negative 1 (05/27/23 1:47 PM) Normal Negative [facility] Comment on above: Interpretive Data: T [...] NEG Ctl Pass (05/27/23 1:47 PM) Normal [facility] Rapid COV Int POS Ctl Pass (05/27/23 1:47 PM) Normal [facility] SARS-CoV+SARS-CoV-2 (COVID-19) Ag IA.rapid Ql (Resp) Detected 16 *ABN* (05/27/23 1:47 PM) Invalid Interpretation Code Not Detected [facility] Comment on above: Interpretive Data: T he [email or web address] Veritor System for Rapid Detection of SARS-CoV-2 [...] revoked sooner. Monitor Recordon 05-27-2023 Monitor Record [id number] Normal [facility] No Panel InformationOrdered By: Marie Macario on 05-27-2023 Blood Culture Charcoal Staphylococcus species coagulase negative In 2 of 2 blood culture bottles drawn. Isolated from aerobic and anaerobic bottles Preliminary result of gram positive cocci in clusters called to Dr. Spivey 05/28/2023 12:28:37 by . Also alerted that his second set of blood cultures looks to be a different organism. [facility] Blood Culture Charcoal Gram Positive Rods resembling diphtheroids and Staphylococcus species coagulase negative In 2 of 2 blood culture bottles drawn. Isolated from aerobic and anaerobic bottles Preliminary gram stain result of gram positive rods given to Dr. Spivey 05/28/2023 12:28:37. [facility] PT & PTTon 05-27-2023 aPTT Coag (PPP) [Time] 27.2 second(s) Normal 25.1-36.5 [facility] Comment on above: Result Comment: Para meter [...] the same coagulation reagent and instrumentation as [facility]. Currently there are no coagulation studies available worldwide for children to 14 days, and no normal ranges. Heparin therapeutic range (represented by Anti-Factor Xa activity of 0.2 - 0.4 U/mL) corresponds to PTT of 56.6 - 109.0 sec. Performed By: #### 2 [id number], [id number], [id number], [id number], [id number], [id number], [id number] ####[facility] [id number] [place] [address] INR Coag (PPP) [Relative time] 1.3 {INR} Invalid Interpretation Code [facility] Comment on above: Result Comment: INR results are specifically intended to assess patients stabilized on long-term Anticoagulation therapy suggested INR?s ?Less Intensive Anticoagulation? 2.0 ? 3.0 Conventional Range 3.0 ? 4.5 Performed By: #### 2 [id number], [id number], [id number], [id number], [id number], [id number], [id number] ####[facility] [address] [place] [address] PT Coag (PPP) [Time] 14.2 second(s) High 9.4-12.5 [facility] Comment on above: Result Comment: 15 d ays - 4 weeks 1 - 5 months 6 -11 months 1- 5 years 6-10 years 11 -17 years Mean: 11.2 (9.5-12.6) Mean: 11.0 (9.7-12.8) Mean: 11.0 (9.8-13.0) Mean: 11.3 (9.9-13.4) Mean: 11.7 (10.0-14.6) Mean: 11.8 (10.0 - 14.1) Pediatric Reference ranges were obtained from a study by Victorino Mendota, et al. prepared from 1437 samples obtained at 7 different centers using the same coagulation reagent and instrumentation as [facility]. Currently there are no coagulation studies available worldwide for children to 14 days, and no normal ranges. Performed By: #### 2 [id number], [id number], [id number], [id number], [id number], 8974514, [id number] ####[facility] [address] [place] [address] Pre-Arrival Noteon 3 Pre-Arrival Note Pre-Arrival Summary Name: , nmsariah Current Date: 05/27/2023 13:37:03 EDT Gender: Male Date of : Age: 63 Pre-Arrival Type: EMS ETA: 05/27/2023 13:34:00 EDT Primary Care Physician: Presenting Problem: weakness, dizziness Pre-Arrival User: Tiffanie Rocha RN Referring Source: Location: Completion Date/Time: 05/27/2023 13:05:00 [facility] Emergency Department Pre-Hospital Report Form Vital Signs: 99/65 80 18 99 Pre-Hospital Report: weakness, dizziness, hx pancan. Treatment in Route: Response to Treatment: Misc. Issues: Normal [facility] Rapid COVID Antigen ([facility])on 05-27-2023 Rapid COV Int NEG Ctl Pass Normal [facility] Comment on above: Performed By: #### 2 [id number], [id number], [id number], [id number], [id number], [id number] #### [facility] [address] [place] [address] Rapid COV Int POS Ctl Pass Normal [facility] Comment on above: Performed By: #### 2 [id number], [id number], [id number], [id number], [id number], [id number] #### [facility] [address] [place] [address] SARS-CoV+SARS-CoV-2 (COVID-19) Ag IA.rapid Ql (Resp) Detected Abnormal Not Detected [facility] Comment on above: Result Comment: The [employer] System for Rapid Detection of SARS-CoV-2 is [...] other viruses or pathogens; and, in the [facility], this test is only authorized for the duration of the declaration that circumstances exist justifying the authorization of emergency use of in vitro diagnostics for detection and/or diagnosis of the virus that causes COVID-19 under Section 564(b)(1) of the Act, 21 U.S.C. ? 360bbb-3(b)(1), unless the authorization is terminated or revoked sooner. Performed By: #### 2 [id number], [id number], 6120589, [id number], [id number], [id number] #### [facility] [address] [place] [address] Reportability Response - Pub [facility] 05-27-2023 Reportability Response - Public Health {[id number]}XML Normal [facility] Troponin 0 Hr.on 05-27-2023 Troponin I.cardiac [Mass/Vol] 6.90 pg/mL Low 15.90-38.4 0 [facility] Comment on above: Result Comment: The 95% CI (Confidence Interval) PPV (Positive Predictive Value) for myocardial infarction in females is 38 pg/mL, in males 51 pg/mL. The results should be used in conjunction with clinical conditions of myocardial infarction. (Access High Sensitivity Troponin I Instructions For Use, [employer], March 2018) Performed By: #### 2 [id number], [id number], [id number], 3320247, 57586084, [id number], [id number] ####[facility] [address] [place] [address] Troponin 3 Hr.on 05-27-2023 Troponin I.cardiac [Mass/Vol] 6.40 pg/mL Low 15.90-38.4 0 [facility] Comment on above: Result Comment: The 95% CI (Confidence Interval) PPV (Positive Predictive Value) for myocardial infarction in females is 38 pg/mL, in males 51 pg/mL. The results should be used in conjunction with clinical conditions of myocardial infarction. (Access High Sensitivity Troponin I Instructions For Use, [employer], March 2018) Performed By: #### 2 [id number], [id number], 8229678, [id number], [id number], [id number] #### [facility] [address] [place] [address] Troponin 6 Hr.on 05-27-2023 Troponin I.cardiac [Mass/Vol] 6.00 pg/mL Low 15.90-38.4 0 [facility] Comment on above: Result Comment: The 95% CI (Confidence Interval) PPV (Positive Predictive Value) for myocardial infarction in females is 38 pg/mL, in males 51 pg/mL. The results should be used in conjunction with clinical conditions of myocardial infarction. (Access High Sensitivity Troponin I Instructions For Use, [employer], March 2018) Performed By: #### 2 [id number], [id number], [id number], [id number], [id number], [id number] #### [facility] [address] [place] [address] Troponin 9 Hr.on 05-27-2023 Troponin I.cardiac [Mass/Vol] 6.00 pg/mL Low 15.90-38.4 0 [facility] Comment on above: Result Comment: The 95% CI (Confidence Interval) PPV (Positive Predictive Value) for myocardial infarction in females is 38 pg/mL, in males 51 pg/mL. The results should be used in conjunction with clinical conditions of myocardial infarction. (Access High Sensitivity Troponin I Instructions For Use, [employer], March 2018) Performed By: #### 1 [id number] #### [facility] [address] [place] [address] XR Chest Single Viewon 05-27 XR Chest [...] Signature): 05/27/2023 3:03 pm Signed by: Attila Pnik DO Transcribed by: MONSTER Technologist: ARFIA Technical Comments Radiation Dose: Ka,r in mGy = na DAP = na Normal [facility] eGFRon 05-27-2023 GFR/1.73 sq M.predicted among non-blacks MDRD (S/P/Bld) [Vol rate/Area] 84 mL/min/1.73 m2 Normal >=59 [facility] Comment on above: Order Comment: Order added by Discern Expert. Result Comment: Civil Manager radha kidney disease could be indicated at eGFR's of less than 60 mL/min/1.73m2. Kidney failure is indicated at less than 15 mL/min/1.73m2. Performed By: #### 2 [id number], [id number], [id number], 5472939, [id number], 3661624, [id number] ####[facility] [address] [place] [id number] CHEMISTRYOrdered By: SYSTEM SYSTEM on 03-17-2023 Prostate specific Ag [Mass/Vol] ng/mL Normal 0.1 - 3.5 ng/mL [facility] Remisol CBC AUTO DIFFon 12-10-2021 BASO # 0.0 103/ul Normal 0.0-0.1 [facility] Comment on above: Performed By: #### C BC #### [facility] [address] [place] [address] Dr. Nida Castillo Basophils/100 WBC (Bld) 0.6 % Normal 0.2-2.0 [facility] Comment on above: Performed By: #### C BC #### [facility] [address] [place] [address] Dr. Nida Castillo EO # 0.1 103/ul Normal 0.0-0.7 [facility] Comment on above: Performed By: #### C BC #### [facility] [address] [place] [address] Dr. Nida Castillo Eosinophils/100 WBC (Bld) 2.3 % Normal 0.9-7.0 [facility] Comment on above: Performed By: #### C BC #### [facility] [address] [place] [address] Dr. Nida Castillo Erythrocyte distribution width (RBC) [Ratio] 13.6 % Normal 11.0-15.0 [facility] Comment on above: Performed By: #### C BC #### [facility] [address] [place] [address] Dr. Nida Castillo Hematocrit (Bld) [Volume fraction] 39.7 % Critically low 42.0-54.0 [facility] Comment on above: Performed By: #### C BC #### [facility] [address] [place] [address] Dr. Nida Castillo Hemoglobin (Bld) [Mass/Vol] 12.4 g/dL Critically low 14.0-18.0 [facility] Comment on above: Performed By: #### C BC #### [facility] [address] [place] [address] Dr. Nida Castillo IG # 0.01 10e3/ul Normal 0.00-0.03 [facility] Comment on above: Performed By: #### C BC #### [facility] [address] [place] [address] Dr. Nida Castillo IG % 0.3 % Normal 0.0-0.5 [facility] Comment on above: Performed By: #### C BC #### [facility] [address] [place] [address] Dr. Nida Castillo LYMPH # 0.6 103/ul Critically low 1.2-3.8 [facility] Comment on above: Performed By: #### C BC #### [facility] [address] [place] [address] Dr. Nida Castillo Lymphocytes/100 WBC (Bld) 17.7 % Critically low 20.5-60.0 [facility] Comment on above: Performed By: #### C BC #### [facility] [address] [place] [address] Dr. Nida Castillo MANUAL DIFF REQ NO Normal [facility] Comment on above: Performed By: #### C BC #### [facility] [address] [place] [address] Dr. Nida Castillo MCH (RBC) [Entitic mass] 28.1 pg Normal 25.9-34.0 [facility] Comment on above: Performed By: #### C BC #### [facility] [address] [place] [address] Dr. Nida Castillo MCHC (RBC) [Mass/Vol] 31.2 g/dL Normal 29.9-35.2 [facility] Comment on above: Performed By: #### C BC #### [facility] [address] [place] [address] Dr. Nida Castillo MCV (RBC) [Entitic vol] 90.0 fL Normal 80.0-94.0 [facility] Comment on above: Performed By: #### C BC #### [facility] [address] [place] [address] [address] Nida Castillo MONO # 0.2 103/ul Critically low 0.3-0.8 [facility] Comment on above: Performed By: #### C BC #### [facility] [address] [place] [address] [address] Nida Castillo Monocytes/100 WBC (Bld) 6.8 % Normal 1.7-12.0 [facility] Comment on above: Performed By: #### C BC #### [facility] [address] [place] [address] [address] Nida Castillo NEUT # 2.5 103/ul Normal 1.4-6.5 [facility] Comment on above: Performed By: #### C BC #### [facility] [address] [place] [address] Dr. Nida Castillo Neutrophils/100 WBC (Bld) 72.3 % Normal 43.0-75.0 [facility] Comment on above: Performed By: #### C BC #### [facility] [address] [place] [address] Dr. Nida Castillo Platelet mean volume (Bld) [Entitic vol] 10.7 fL Normal 9.5-13.5 [facility] Comment on above: Performed By: #### C BC #### [facility] [address] [place] [address] Dr. Nida Castillo PLT 177 103/ul Normal 150-450 [facility] Comment on above: Performed By: #### C BC #### [facility] [address] [place] [address] Dr. Nida Castillo RBC 4.41 106/ul Critically low 4.70-6.10 [facility] Comment on above: Performed By: #### C BC #### [facility] [address] [place] [address] Dr. Nida Castillo WBC 3.5 103/ul Critically low 4.0-11.0 [facility] Comment on above: Performed By: #### C BC #### [facility] [address] [address] [address] Nida Castillo LIPID PROFILEon 12-10-2021 CHOL-HDL RATIO NORM SEE BELOW Normal [facility] Comment on above: Result Comment: 3.3 - 4.4 LOW RISK 4.4 - 7.1 AVERAGE RISK 7.1 - 11.0 MODERATE RISK >11.0 HIGH RISK Performed By: #### L IPID, CMP #### [facility] [address] [address] [address] Nida Castillo Cholesterol [Mass/Vol] 204 mg/dL Critically high <=200 [facility] Comment on above: Performed By: #### L IPID, CMP #### [facility] [address] [place] [address] Dr. Nida Castillo Cholesterol in HDL [Mass/Vol] 80 mg/dL Critically high 40-60 [facility] Comment on above: Performed By: #### L IPID, CMP #### [facility] [address] [place] [address] Dr. Nida Castillo Cholesterol in LDL [Mass/Vol] 112.8 mg/dL Normal [facility] Comment on above: Performed By: #### L IPID, CMP #### [facility] [address] [place] [address] Dr. Nida Castillo Cholesterol.total/Ch olesterol in HDL [Mass ratio] 2.6 {ratio} Normal [facility] Comment on above: Performed By: #### L IPID, CMP #### [facility] [address] [place] [address] Dr. Nida Castillo HDL NORMAL > or = 60 mg/dl - LO W CARDIOVASCULAR RISK <40 mg/dl - HIGH CARDIOVASCULAR RISK Normal [facility] Comment on above: Performed By: #### L IPID, CMP #### [facility] [address] [place] [address] Dr. Nida Castillo LDL CALC NORMAL SEE BELOW Normal [facility] Comment on above: Result Comment: <100 mg/dl OPTIMAL 100 - 129 mg/dl NEAR OR ABOVE OPTIMAL 130 - 159 mg/dl BORDERLINE HIGH 160 - 189 mg/dl HIGH >190 mg/dl VERY HIGH Performed By: #### L IPID, CMP #### [facility] [address] [address] [address] Nida Castillo Triglyceride [Mass/Vol] 56 mg/dL Normal <=150 [facility] Comment on above: Performed By: #### L IPID, CMP #### [facility] [address] [place] [address] Dr. Nida Castillo VLDL CALC 11.2 mg/dL Normal [facility] Comment on above: Performed By: #### L IPID, CMP #### [facility] [address] [address] [address] Nida Castillo PROF 14(COMP METB)on 022 Albumin [Mass/Vol] 3.8 g/dL Normal 3.4-5.0 [facility] Comment on above: Performed By: #### L IPID, CMP #### [facility] [address] [place] [address] Dr. Nida Castillo Albumin/Globulin [Mass ratio] 1.1 {ratio} Normal [facility] Comment on above: Performed By: #### L IPID, CMP #### [facility] [address] [place] [address] Dr. Nida Castillo ALP [Catalytic activity/Vol] 74 U/L Normal 46-116 [facility] Comment on above: Performed By: #### L IPID, CMP #### [facility] [address] [place] [address] Dr. Nida Castillo ALT [Catalytic activity/Vol] 23 U/L Normal 16-63 [facility] Comment on above: Performed By: #### L IPID, CMP #### [facility] [address] [place] [address] Dr. Nida Castillo Anion gap [Moles/Vol] 8.9 mmol/L Normal [facility] Comment on above: Performed By: #### L IPID, CMP #### [facility] [address] [place] [address] Dr. Nida Castillo AST [Catalytic activity/Vol] 20 U/L Normal 15-37 [facility] Comment on above: Performed By: #### L IPID, CMP #### [facility] [address] [place] [address] Dr. Nida Castillo Bilirubin [Mass/Vol] 0.4 mg/dL Normal 0.2-1.0 [facility] Comment on above: Performed By: #### L IPID, CMP #### [facility] [address] [place] [address] Dr. Nida Castillo Calcium [Mass/Vol] 9.1 mg/dL Normal 8.5-10.1 [facility] Comment on above: Performed By: #### L IPID, CMP #### [facility] [address] [place] [address] Dr. Nida Castillo Chloride [Moles/Vol] 102 mmol/L Normal 98-107 [facility] Comment on above: Performed By: #### L IPID, CMP #### [facility] [address] [place] [address] Dr. Nida Castillo CO2 [Moles/Vol] 34.4 mmol/L Critically high 21.0-32.0 [facility] Comment on above: Performed By: #### L IPID, CMP #### [facility] [address] [place] [address] Dr. Nida Castillo Creatinine [Mass/Vol] 0.98 mg/dL Normal 0.70-1.30 [facility] Comment on above: Performed By: #### L IPID, CMP #### [facility] [address] [place] [address] Dr. Nida Castillo EGFR-AF SUDANESE >60 Normal >=60 [facility] Comment on above: Performed By: #### L IPID, CMP #### [facility] [address] [place] [address] Dr. Nida Castillo EGFR-NON AF SUDANESE >60 Normal >=60 [facility] Comment on above: Performed By: #### L IPID, CMP #### [facility] [address] [place] [address] Dr. Nida Castillo Globulin (S) [Mass/Vol] 3.4 g/dL Normal [facility] Comment on above: Performed By: #### L IPID, CMP #### [facility] [address] [address] [address] Nida Castillo Glucose [Mass/Vol] 88 mg/dL Normal 74-106 [facility] Comment on above: Performed By: #### L IPID, CMP #### [facility] [address] [address] [address] Nida Castillo Potassium [Moles/Vol] 4.3 mmol/L Normal 3.5-5.1 [facility] Comment on above: Performed By: #### L IPID, CMP #### [facility] [address] [address] [address] Nida Castillo Protein [Mass/Vol] 7.2 g/dL Normal 6.4-8.2 [facility] Comment on above: Performed By: #### L IPID, CMP #### [facility] [address] [place] [address] Dr. Nida Castillo Sodium [Moles/Vol] 141 mmol/L Normal 136-145 [facility] Comment on above: Performed By: #### L IPID, CMP #### [facility] [address] [address] [address] Nida Castillo Urea nitrogen [Mass/Vol] 24.0 mg/dL Critically high 7.0-18.0 [facility] Comment on above: Performed By: #### L IPID, CMP #### [facility] [address] [place] [address] Dr. Nida Castillo Urea nitrogen/Creatinine [Mass ratio] 24.5 mg/mg Normal [facility] Comment on above: Performed By: #### L IPID, CMP #### [facility] [address] [address] [address] Nida Castillo Vital Signs Date Time Vital Sign Value Performing Clinician Facility 03-22-2024 10:53-0400 Blood Pressure Location Kayla Torres [facility] 03-22-2024 10:53-0400 Diastolic blood pressure 84 mm[Hg] Kayla Lue [facility] 03-22-2024 10:53-0400 Heart rate 53 /min Kayla Lue [facility] 03-22-2024 10:53-0400 Respiratory rate 16 /min Kayla Lue [facility] 03-22-2024 10:53-0400 Systolic blood pressure 130 mm[Hg] Kayla Lue [facility] 02-10-2024 10:30-0400 Body height 180.34 cm [facility] 02-10-2024 10:30-0400 Body mass index (BMI) [Ratio] 23.3 kg/m2 [facility] 02-10-2024 10:30-0400 Body weight 75.97 kg [facility] 02-10-2024 10:30-0400 Diastolic blood pressure 72 mm[Hg] [facility] 02-10-2024 10:30-0400 Heart rate 52 /min [facility] 02-10-2024 10:30-0400 Respiratory rate 12 /min [facility] 02-10-2024 10:30-0400 Systolic blood pressure 137 mm[Hg] [facility] 11-17-2023 15:25-0400 Blood Pressure Location Giorgio GONZALES [facility] 11-17-2023 15:25-0400 Diastolic blood pressure 84 mm[Hg] Giorgio GONZALES [facility] 11-17-2023 15:25-0400 Heart rate 70 /min Giorgio GONZALES [facility] 11-17-2023 15:25-0400 Respiratory rate 16 /min Giorgio GONZALES [facility] 11-17-2023 15:25-0400 Systolic blood pressure 124 mm[Hg] Giorgio GONZALES [facility] [place] 11-10-2023 11:03-0400 Body height 180.34 cm [facility] 11-10-2023 11:03-0400 Body mass index (BMI) [Ratio] 21.7 kg/m2 [facility] 11-10-2023 11:03-0400 Body weight 70.53 kg [facility] 11-10-2023 11:03-0400 Diastolic blood pressure 76 mm[Hg] [facility] 11-10-2023 11:03-0400 Heart rate 69 /min [facility] 11-10-2023 11:03-0400 Respiratory rate 12 /min [facility] 11-10-2023 11:03-0400 Systolic blood pressure 118 mm[Hg] [facility] 08-12-2023 11:30-0500 Body height 180.34 cm Sammy Ball Other [facility] [employer] Other 08-12-2023 11:30-0500 Body mass index (BMI) [Ratio] 20.64 kg/m2 Sammy Ball Other [facility] [employer] Other 08-12-2023 11:30-0500 Body weight 67.13 kg Sammy Ball Other [employer] [employer] Other 08-12-2023 11:30-0500 Diastolic blood pressure 85 mm[Hg] Sammy Ball Other [facility] [employer] Other 08-12-2023 11:30-0500 Respiratory rate 12 /min Sammy Ball Other [employer] Other 08-12-2023 11:30-0500 Systolic blood pressure 135 mm[Hg] Sammy Ball Other [employer] Other 07-01-2023 10:30-0500 Body height 180.34 cm Sammy Ball Other [employer] Other 07-01-2023 10:30-0500 Body mass index (BMI) [Ratio] 21 kg/m2 Sammy Ball Other [employer] Other 07-01-2023 10:30-0500 Body weight 68.31 kg Sammy Ball Other [employer] Other 07-01-2023 10:30-0500 Diastolic blood pressure 74 mm[Hg] Sammy Ball Other [employer] Other 07-01-2023 10:30-0500 Respiratory rate 12 /min Sammy Ball Other [employer] Other 07-01-2023 10:30-0500 Systolic blood pressure 110 mm[Hg] Sammy Ball Other [employer] Other 05-30-2023 16:36-0400 Hourly Rounding Mbanefo OJUKWU [facility] 05-30-2023 16:36-0400 Promise to Return Mbanefo OJUKW[facility] 05-30-2023 16:00-0400 Diastolic blood pressure 77 mm[Hg] Mbanefo OJUKW[facility] 05-30-2023 16:00-0400 Heart rate 45 /min [facility]banefo [facility]UK[facility] 05-30-2023 16:00-0400 SaO2% (BldA) [Mass fraction] 98 % Mbanefo OJUKW[facility] 05-30-2023 16:00-0400 Systolic blood pressure 128 mm[Hg] Mbanefo OJUKW[facility] 05-30-2023 15:36-0400 Hourly Rounding Mbanefo OJUKWU [facility] 05-30-2023 15:36-0400 Promise to Return Mbanefo OJUKW[facility] 05-30-2023 14:07-0400 Hourly Rounding Mbanefo OJUKW[facility] 05-30-2023 14:07-0400 Promise to Return Mbanefo OJUKW[facility] 05-30-2023 14:00-0400 Body temperature 98.06 [degF] Mbanefo [facility]JUK[facility] 05-30-2023 12:00-0400 Blood Pressure Location Mbanefo OJUKW[facility] 05-30-2023 12:00-0400 Heart rate 42 /min Mbanefo OJUKW[facility] 05-30-2023 12:00-0400 Systolic blood pressure 157 mm[Hg] Mbanefo OJUKW[facility] 05-30-2023 08:24-0400 Heart rate 36 /min [facility]banefo [facility]UK[facility] 05-30-2023 08:24-0400 SaO2% (BldA) [Mass fraction] 99 % Mbanefo OJUKW[facility] 05-30-2023 08:14-0400 Body temperature 97.52 [degF] Mbanefo OJUKW[facility] 05-30-2023 08:14-0400 Diastolic blood pressure 72 mm[Hg] Mbanefo [facility]JUK[facility] 05-30-2023 08:14-0400 Mean blood pressure 99 mm[Hg] Mbanefo [facility]JUK[facility] 05-30-2023 08:14-0400 Systolic blood pressure 152 mm[Hg] Mbanefo [facility]UK[facility] 05-29-2023 20:00-0400 Mean blood pressure 102 mm[Hg] Mbanefo [facility]JUK[facility] 05-29-2023 16:18-0400 Mean blood pressure 96 mm[Hg] Mbanefo OJUKW[facility] 05-29-2023 14:00-0400 Blood Pressure Location Mbanefo OJUKWU [facility] 05-29-2023 11:37-0400 Mean blood pressure 103 mm[Hg] Mbanefo OJUKWU [facility] 05-28-2023 20:00-0400 Mean blood pressure 106 mm[Hg] Mbanefo OJUKWU [facility] 05-28-2023 16:46-0400 Body temperature 97.34 [degF] Mbanefo OJUKWU [facility] 05-28-2023 10:31-0400 Body temperature 97.34 [degF] Mbanefo OJUKWU [facility] 05-28-2023 02:51-0400 Respiratory rate 18 /min Mbanefo OJUKWU [facility] 05-28-2023 00:45-0400 Respiratory rate 17 /min Mbanefo OJUKWU [facility] 05-27-2023 20:05-0400 Respiratory rate 17 /min Mbanefo OJUKWU [facility] 05-27-2023 17:15-0400 Heart rate 60 /min Mbanefo OJUKWU [facility] 05-27-2023 16:57-0400 Respiratory rate 22 /min Mbanefo OJUKWU [facility] 05-27-2023 16:32-0400 Mean blood pressure 81 mm[Hg] Mbanefo OJUKWU [facility] 05-27-2023 16:32-0400 Respiratory rate 16 /min Mbanefo OJUKWU [facility] 05-27-2023 15:25-0400 Respiratory rate 14 /min Mbanefo OJUKWU [facility] 05-27-2023 13:39-0400 SaO2% (BldA) [Mass fraction] 98.8 % Mbanefo OJUKWU [facility] Resp Auto SS 05-27-2023 13:16-0400 Heart rate 79 /min Mbanefo OJUKWU [facility] 03-17-2023 10:35-0400 Blood Pressure Location Kayla Lue [facility] 03-17-2023 10:35-0400 Diastolic blood pressure 82 mm[Hg] Kayla Lue [facility] 03-17-2023 10:35-0400 Heart rate 74 /min Kayla Lue [facility] 03-17-2023 10:35-0400 Systolic blood pressure 128 mm[Hg] Kayla Lue [facility] 12-30-2022 11:30-0400 Body height 180.34 cm Sammy Ball Other [employer] Other 12-30-2022 11:30-0400 Body mass index (BMI) [Ratio] 24.29 kg/m2 Sammy Ball Other [facility] [employer] Other 12-30-2022 11:30-0400 Body weight 79.02 kg Sammy Ball Other [facility] [employer] Other 12-30-2022 11:30-0400 Diastolic blood pressure 75 mm[Hg] Sammy Ball Other [employer] Other 12-30-2022 11:30-0400 Respiratory rate 12 /min Sammy Ball Other [employer] Other 12-30-2022 11:30-0400 Systolic blood pressure 132 mm[Hg] Sammy Ball Other [employer] Other 12-02-2022 08:17-0400 Blood Pressure Location Kayla Lue [facility] 12-02-2022 08:17-0400 Diastolic blood pressure 70 mm[Hg] Kayla Lue [facility] 12-02-2022 08:17-0400 Heart rate 68 /min Kayla Lue [facility] 12-02-2022 08:17-0400 Respiratory rate 16 /min Kayla Lue [facility] 12-02-2022 08:17-0400 Systolic blood pressure 128 mm[Hg] Kayla Brian [facility] 09-29-2022 11:30-0500 Body height 180.34 cm Sammy Ball Other [employer] Other 09-29-2022 11:30-0500 Body mass index (BMI) [Ratio] 25.13 kg/m2 Sammy Ball Other [employer] Other 09-29-2022 11:30-0500 Body weight 81.74 kg Sammy Ball Other [employer] Other 09-29-2022 11:30-0500 Diastolic blood pressure 68 mm[Hg] Sammy Ball Other [employer] Other 09-29-2022 11:30-0500 Respiratory rate 12 /min Sammy Ball Other [employer] Other 09-29-2022 11:30-0500 Systolic blood pressure 122 mm[Hg] Sammy Ball Other [employer] Other Encounters Encounter Date Encounter Type Care Provider Facility Start: 06-07-2024 ambulatory Kayla Torres Facility:[facility] Start: 03-24-2024 End: 03-24-2024 ambulatory ABI GREEN Not Available Start: 03-22-2024 End: 03-22-2024 ambulatory Kayla Torres Facility:GISEAL [facility] Start: 03-22-2024 End: 03-22-2024 Patient encounter procedure Kayla Torres [facility] Start: 02-10-2024 End: 02-10-[address] [facility] Work Phone: Start: 02-10-2024 End: 02-10-2024 Encounter for general adult medical examination without abnormal findings [facility] Start: 02-10-2024 End: 02-10-2024 Patient encounter procedure [facility] Work Phone: Start: 02-09-2024 Patient encounter status [facility] Start: 02-01-2024 End: 02-01-2024 ambulatory BELKYS RANDALL Not Available Start: 01-27-2024 End: 01-27-2024 ambulatory ABI Barahona DEEPAKLANDONBri Not Available Start: 01-26-2024 End: 01-26-2024 ambulatory Giorgio R AWILDAL Facility:[id number] Start: 01-17-2024 Non-patient / Non-visit [facility] Work Phone: Start: 12-07-2023 End: 12-07-2023 ambulatory BELKYS RANDALL Not Available Start: 11-17-2023 End: 11-17-2023 ambulatory SAMMY AGUILERA Facility:PANTERA Joyce Start: 11-17-2023 End: 11-17-2023 Patient encounter procedure Giorgio R NILL General Surgery Nill/Said Isiah Start: 11-15-2023 ambulatory Giorgio NILL Facility:Jyoti Joyce Start: 11-10-2023 End: 11-10-[address] [facility] Work Phone: Start: 11-10-2023 End: 11-10-2023 Patient encounter procedure [facility] Work Phone: Start: 11-02-2023 ambulatory Giorgio NILL Facility:Jyoti Steele Start: 09-16-2023 Non-patient / Non-visit [facility] Work Phone: Start: 08-30-2023 End: 08-30-2023 ambulatory Sammy Aguilera Other [facility] [employer] Other Start: 08-30-2023 Telephone encounter Sammy Ball [facility] Start: 08-23-2023 End: 08-23-2023 ambulatory Sammy Ball Other [employer] Other Start: 08-23-2023 Telephone encounter Sammy Ball [facility] Start: 08-12-2023 End: 08-12-2023 ambulatory Sammy Ball Other [employer] Other Start: 08-12-2023 Office outpatient vi sit 25 minutes Sammy Ball [facility] Start: 08-10-2023 End: 08-10-2023 ambulatory Sammy Ball Other [employer] Other Start: 08-10-2023 Telephone encounter Sammy Ball [facility] Start: 07-27-2023 End: 07-27-2023 ambulatory Sammy Ball Other [employer] Other Start: 07-27-2023 Telephone encounter Sammy Ball [facility] Start: 07-12-2023 End: 07-12-2023 ambulatory Sammy Ball Other [employer] Other Start: 07-12-2023 Telephone encounter Sammy Ball [facility] Start: 07-09-2023 End: 07-09-2023 ambulatory Sammy Ball Other [employer] Other Start: 07-09-2023 Telephone encounter Sammy Ball [facility] Start: 07-07-2023 End: 07-07-2023 ambulatory Sammy Ball Other [employer] Other Start: 07-07-2023 Telephone encounter Sammy Ball [facility] Start: 07-01-2023 End: 07-01-2023 ambulatory Sammy Ball Other [employer] Other Start: 07-01-2023 Office outpatient vi sit 25 minutes Sammy Ball [facility] Start: 07-01-2023 Tele[facility] encounter [facility] Start: 06-29-2023 End: 06-29-2023 ambulatory Sammy Aguilera Other [employer] Other Start: 06-29-2023 Telephone encounter [facility] Start: 06-04-2023 End: 06-04-2023 ambulatory Sammy Aguilera Other [employer] Other Start: 06-04-2023 Telephone encounter [facility] Start: 05-29-2023 End: 05-29-2023 ambulatory Sammy Aguliera Other [employer] Other Start: 05-29-2023 Telephone encounter [facility] Start: 05-27-2023 End: 05-30-2023 Evaluation and management of inpatient Jossue Christos Spivey Facility:[facility] Start: 05-27-2023 End: 05-30-2023 Evaluation and management of inpatient Miriam MCCURDY [facility] Start: 04-09-2023 End: 04-09-2023 ambulatory Sammy Aguilera Other [employer] Other Start: 04-09-2023 Telephone encounter [facility] Start: 03-17-2023 End: 03-17-2023 Patient encounter procedure Kayla Torres [facility] Start: 03-17-2023 End: 03-17-2023 Patient encounter procedure Kayla Torres [facility] Start: 03-11-2023 End: 03-11-2023 ambulatory Sammy Aguilera Other [employer] Other Start: 03-11-2023 Telephone encounter Sammy Aguilera [facility] Start: 02-09-2023 End: 02-09-2023 ambulatory Sammy Aguilera Other [employer] Other Start: 02-09-2023 Telephone encounter Sammy Aguilera [facility] Start: 01-05-2023 End: 01-05-2023 ambulatory Sammy Aguilera Other [employer] Other Start: 01-05-2023 Telephone encounter Sammy Aguilera [facility] Start: 12-30-2022 End: 12-30-2022 ambulatory Sammy Aguilera Other [employer] Other Start: 12-30-2022 Encounter for genera l adult medical examination without abnormal findings Sammy Aguilera [facility] Start: 12-30-2022 Periodic preventive med est patient 40-64yrs Sammy Aguilera [facility] Start: 12-03-2022 End: 12-03-2022 ambulatory Sammy Aguilera Other [employer] Other Start: 12-03-2022 Telephone encounter Sammy MONTOYA [facility] Start: 12-02-2022 End: 12-02-2022 Patient encounter procedure Kayla Torres [facility] Start: 11-30-2022 End: 12-01-2022 ambulatory KAYLA TORRES . Facility: Start: 11-05-2022 End: 11-05-2022 ambulatory Sammy Aguilera Other [employer] Other Start: 11-05-2022 Telephone encounter Sammy Aguilera [facility] Start: 10-30-2022 End: 10-30-2022 ambulatory Sammy Aguilera Other [employer] Other Start: 10-30-2022 Telephone encounter Sammy Aguilera [facility] Start: 09-30-2022 End: 09-30-2022 ambulatory Sammy Aguilera Other [employer] Other Start: 09-30-2022 Telephone encounter [facility] Start: 09-29-2022 End: 09-29-2022 ambulatory Sammy Aguilera Other [employer] Other Start: 09-29-2022 Office outpatient vi sit 25 minutes [facility] Start: 12-16-2021 Encounter for genera l adult medical examination without abnormal findings SAMMY AGUILERA [facility] Start: 12-10-2021 End: 12-11-2021 ambulatory SAMMY AGUILERA Facility:[facility] Start: 12-10-2021 End: 12-11-2021 Encounter for general adult medical examination without abnormal findings SAMMY AGUILERA Facility:[facility] Start: 12-10-2021 Adult health examination Sammy Aguilera Other [employer] Other Procedures Date Procedure Procedure Detail Performing Clinician Start: 01-26-2024 Colonoscopy Kayla Lue Start: 01-26-2024 Esophagogastroduodenoscopy Kayla Lue Start: 11-30-2022 PSA screening KAYLA LUE . Comment on above: Performed By: #### PSAD #### [facility] [address] [place] [address] Dr. Nida Castillo Start: 05-09-2020 Radical retropubic prostatectomy Kayla L ue Start: 02-29-2020 Transrectal biopsy of prostate Kayla Lue Start: 11-11-2018 Screening for malignant neoplasm of prostate Sammy Aguilera Other Start: 11-10-2018 General examination of patient Sammy Aguilera Other Start: 08-02-2015 Colonoscopy Giorgio NILL Start: 08-02-2015 Esophagogastroduodenoscopy Giorgio NILL Start: 08-02-2007 Teleradiotherapy procedure Kayla Torres Biopsy of soft palate Michae l CHRISTIAN Colonoscopy Kayla Torres Decompression of median nerve Giorgio GONZALES Tonsillectomy Kayla Torres Immunizations Immunization Date Immunization Notes Care Provider Shelby stinson 07-14-2022 COVID-19 Pfizer (Pediatric) Sammy Aguilera Other [facility] 07-14-2022 influenza virus vaccine, split virus (incl. purified surface antigen) Sammy Aguilera Other [employer] Other 07-14-2022 influenza virus vaccine, unspecified formulation Kayla Torres [facility] 07-14-2022 influenza, injectabl e, quadrivalent, preservative free Sammy Aguilera Other [facility] 07-14-2022 SARS-CoV-2 (COVID-19 ) [id number] Kayla Torres [facility] 07-15-2021 SARS-CoV-2 (COVID-19 ) mRNA-1273 vaccine Kayla Lunathan [facility] 07-05-2021 SARS-CoV-2 (COVID-19 ) mRNA-1273 vaccine Kayla Torres [facility] Comment on above: Result Comment: [facility] 06-30-2021 influenza virus vaccine, split virus (incl. purified surface antigen) Sammy Aguilera Other [employer] Other 06-30-2021 influenza virus vaccine, unspecified formulation [facility] 10-07-2020 SARS-CoV-2 (COVID-19 ) Ad26 vaccine, recombinant Kayla Lue [facility] 05-10-2020 influenza virus vaccine, unspecified formulation Kayla Lue [facility] 05-15-2019 influenza virus vaccine, unspecified formulation Kayla Lue [facility] 05-12-2019 influenza virus vaccine, split virus (incl. purified surface antigen) Sammy Aguilera Other [employer] Other 05-12-2019 influenza virus vaccine, unspecified formulation [facility] 08-12-2018 influenza virus vaccine, unspecified formulation Kayla Lue [facility] 05-21-2017 influenza virus vaccine, split virus (incl. purified surface antigen) Sammy Aguilera Other [employer] Other 05-21-2017 influenza virus vaccine, unspecified formulation [facility] 05-21-2017 influenza, unspecifi ed formulation Kayla Lue [facility] 05-21-2016 tetanus and diphther ia toxoids, adsorbed, preservative free, for adult use (5 Lf of tetanus toxoid and 2 Lf of diphtheria toxoid) [facility] 05-21-2016 tetanus toxoid, reduced diphtheria toxoid, and acellular pertussis vaccine, adsorbed Kayla Lue [facility] 05-24-2015 influenza virus vaccine, unspecified formulation Kayla Lue [facility] Payers Date Payer Category Payer Unknown [id number] 2022 Private Health Insurance [id number] 2022 [employer] [id number] 2019 Unknown [id number] 1961 Medicare [id number] 1960 Unknown [id number] 2.16.84 [id number] 1958 Unknown [id number] 2.16.84 [id number] 1958 Unknown [id number] 2.16.8 [id number] 1958 Unknown [id number] 2.16.8 [id number] 1958 Unknown [id number] 2.16.8 [id number] 1958 Unknown [id number] 2.16.8 [id number] 1958 Unknown [id number] 2.16.8 [id number] 1958 Unknown [id number] 2.16.8 [id number] 1958 Unknown [id number] 2.16.84 [id number] 1958 Unknown [id number] 2.16.84 [id number] 1958 Unknown [id number] 2.16.84 [id number] 1958 Unknown [id number] 2.16.84 [id number] Social History Date Type Detail Facility Sex Assigned At [facility] Start: 12-02-2022 End: 03-22-2024 Tobacco smoking status Ex-smoker (finding) [facility] Start: 03-17-2023 Tobacco smoking status Never [facility] Start: 08-12-2023 [facility] Start: 1960 Sex Assigned At Male [facility] Functional Status Date Assessment Result Facility 03-22-2024 Functional Status N/A [facility] 11-17-2023 [facility] Status N/A [facility] Functional Status Yes [facility] 05-27-2023 Functional Status [facility] 03-17-2023 Functional Status N/A [facility] 12-02-2022 Functional Status N/A [facility] Clinical Notes 09-29-2022 to 03-22-2024 Note Date & Type Note Facility 03-22-2024 Hospital Discharge instructions Patient Education 03/22/2024 11:18:06 Overactive Bladder, Adult Overactive Bladder, Adult Overactive bladder is a condition in which a person has a sudden and frequent need to urinate. A person might also leak urine if he or she cannot get to the bathroom fast enough (urinary incontinence). Sometimes, symptoms can interfere with work or social activities. What are the causes? Overactive bladder is associated with poor nerve signals between your bladder and your brain. Your bladder may get the signal to empty before it is full. You may also have very sensitive muscles that make your bladder squeeze too soon. This condition may also be caused by other factors, such as: Medical conditions: ?Urinary tract infection. ?Infection of nearby tissues. ?Prostate enlargement. ?Bladder stones, inflammation, or tumors. ?Diabetes. ?Muscle or nerve weakness, especially from these conditions: ?A spinal cord injury. ?Stroke. ?Multiple sclerosis. ?Parkinson's disease. Other causes: ?Surgery on the uterus or urethra. ?Drinking too much caffeine or alcohol. ?Certain medicines, especially those that eliminate extra fluid in the body (diuretics). ?Constipation. What increases the risk? You may be at greater risk for overactive bladder if you: Are an older adult. Smoke. Are going through menopause. Have prostate problems. Have a neurological disease, such as stroke, dementia, Parkinson's disease, or multiple sclerosis (MS). Eat or drink alcohol, spicy food, caffeine, and other things that irritate the bladder. Are overweight or obese. What are the signs or symptoms? Symptoms of this condition include a sudden, strong urge to urinate. Other symptoms include: Leaking urine. Urinating 8 or more times a day. Waking up to urinate 2 or more times overnight. How is this diagnosed? This condition may be diagnosed based on: Your symptoms and medical history. A physical exam. Blood or urine tests to check for possible causes, such as infection. You may also need to see a health care provider who specializes in urinary tract problems. This is called a urologist. How is this treated? Treatment for overactive bladder depends on the cause of your condition and whether it is mild or severe. Treatment may include: Bladder training, such as: ?Learning to control the urge to urinate by following a schedule to urinate at regular intervals. ?Doing Kegel exercises to strengthen the pelvic floor muscles that support your bladder. Special devices, such as: ?Biofeedback. This uses sensors to help you become aware of your body's signals. ?Electrical stimulation. This uses electrodes placed inside the body (implanted) or outside the body. These electrodes send gentle pulses of electricity to strengthen the nerves or muscles that control the bladder. ?Women may use a plastic device, called a pessary, that fits into the vagina and supports the bladder. Medicines, such as: ?Antibiotics to treat bladder infection. ?Antispasmodics to stop the bladder from releasing urine at the wrong time. ?Tricyclic antidepressants to relax bladder muscles. ?Injections of botulinum toxin type A directly into the bladder tissue to relax bladder muscles. Surgery, such as: ?A device may be implanted to help manage the nerve signals that control urination. ?An electrode may be implanted to stimulate electrical signals in the bladder. ?A procedure may be done to change the shape of the bladder. This is done only in very severe cases. Follow these instructions at home: Eating and drinking Make diet or lifestyle changes recommended by your health care provider. These may include: ?Drinking fluids throughout the day and not only with meals. ?Cutting down on caffeine or alcohol. ?Eating a healthy and balanced diet to prevent constipation. This may include: ?Choosing foods that are high in fiber, such as beans, whole grains, and fresh fruits and vegetables. ?Limiting foods that are high in fat and processed sugars, such as fried and sweet foods. Lifestyle Lose weight if needed. Do not use any products that contain nicotine or tobacco. These include cigarettes, chewing tobacco, and vaping devices, such as e-cigarettes. If you need help quitting, ask your health care provider. General instructions Take mlav-giq-aedmfmr and prescription medicines only as told by your health care provider. If you were prescribed an antibiotic medicine, take it as told by your health care provider. Do not stop taking the antibiotic even if you start to feel better. Use any implants or pessary as told by your health care provider. If needed, wear pads to absorb urine leakage. Keep a log to track how much and when you drink, and when you need to urinate. This will help your health care provider monitor your condition. Keep all follow-up visits. This is important. Contact a health care provider if: You have a fever or chills. Your symptoms do not get better with treatment. Your pain and discomfort get worse. You have more frequent urges to urinate. Get help right away if: You are not able to control your bladder. Summary Overactive bladder refers to a condition in which a person has a sudden and frequent need to urinate. Several conditions may lead to an overactive bladder. Treatment for overactive bladder depends on the cause and severity of your condition. Making lifestyle changes, doing Kegel exercises, keeping a log, and taking medicines can help with this condition. This information is not intended to replace advice given to you by your health care provider. Make sure you discuss any questions you have with your health care provider. Document Revised: 04/07/2021 Document Reviewed: 04/07/2021 [employer] Patient Education 2022 [employer] 03/22/2024 11:18:05 Botulinum Toxin Bladder Injection Botulinum Toxin Bladder Injection A botulinum toxin bladder injection is a procedure to treat an overactive bladder. During the procedure, a drug called botulinum toxin is injected into the bladder through a long, thin needle. This drug relaxes the bladder muscles and reduces overactivity. You may need this procedure if your medicines are not working or you cannot take them. The procedure may be repeated as needed. The treatment is done once and it usually lasts for 6 months. Your health care provider will monitor you to see how well you respond. Tell a health care provider about: Any allergies you have. All medicines you are taking, including vitamins, herbs, eye drops, creams, and wirq-ldf-xihprlr medicines. Any problems you or family members have had with anesthetic medicines. Any bleeding problems you have. Any surgeries you have had. Any medical conditions you have. Any previous reactions to a botulinum toxin injection. Any symptoms of urinary tract infection. These include chills, fever, a burning feeling when passing urine, and needing to pass urine often. Whether you are or may be . What are the risks? Generally this is a safe procedure. However, problems may occur, including: Not being able to pass urine. If this happens, you may need to have your bladder emptied with a thin tube (urinary catheter). Bleeding. Urinary tract infection. Allergic reaction to the botulinum toxin. Pain or burning when passing urine. Damage to nearby structures or organs. What happens before the procedure? When to stop eating and drinking Follow instructions from your health care provider about what you may eat and drink before your procedure. These may include: 8 hours before the procedure ?Stop eating most foods. Do not eat meat, fried foods, or fatty foods. ?Eat only light foods, such as toast or crackers. ?All liquids are okay except energy drinks and alcohol. 6 hours before the procedure ?Stop eating. ?Drink only clear liquids, such as water, clear fruit juice, black coffee, plain tea, and sports drinks. ?Do not drink energy drinks or alcohol. 2 hours before the procedure ?Stop drinking all liquids. ?You may be allowed to take medicines with small sips of water. If you do not follow your health care provider's instructions, your procedure may be delayed or canceled. Medicines Ask your health care provider about: Changing or stopping your regular medicines. This is especially important if you are taking diabetes medicines or blood thinners. Taking medicines such as aspirin and ibuprofen. These medicines can thin your blood. Do not take these medicines unless your health care provider tells you to take them. Taking ycuh-wvg-nuplwhh medicines, vitamins, herbs, and supplements. General instructions Ask your health care provider what steps will be taken to help prevent infection. These steps may include: ?Removing hair at the procedure site. ?Washing skin with a germ-killing soap. ?Taking antibiotic medicine. If you will be going home right after the procedure, plan to have a responsible adult: ?Take you home from the hospital or clinic. You will not be allowed to drive. ?Care for you for the time you are told. What happens during the procedure? You will be asked to empty your bladder. An IV will be inserted into one of your veins. You will be given one or more of the following: ?A medicine to help you relax (sedative). ?A medicine to numb the area (local anesthetic). ?A medicine to make you fall asleep (general anesthetic). A long, thin scope called a cystoscope will be passed into your bladder through the part of the body that carries urine from your bladder (urethra). The cystoscope will be used to fill your bladder with water. A long needle will be passed through the cystoscope and into the bladder. The botulinum toxin will be injected into your bladder. It may be injected into multiple areas of your bladder. The cystoscope will be removed and your bladder will be emptied with a urinary catheter. The procedure may vary among health care providers and hospitals. What can I expect after the procedure? After your procedure, it is common to have: Blood-tinged urine. Burning or soreness when you pass urine. Follow these instructions at home: Medicines Take niaj-yqf-pijtuji and prescription medicines only as told by your health care provider. If you were prescribed an antibiotic medicine, take it as told by your health care provider. Do not stop using the antibiotic even if you start to feel better. General instructions If you were given a sedative during the procedure, it can affect you for several hours. Do not drive or operate machinery until your health care provider says that it is safe. Drink enough fluid to keep your urine pale yellow. Return to your normal activities as told by your health care provider. Ask your health care provider what activities are safe for you. Keep all follow-up visits. Contact a health care provider if you have: A fever or chills. Blood-tinged urine for more than one day after your procedure. Worsening pain or burning when you pass urine. Pain or burning when passing urine for more than two days after your procedure. Trouble emptying your bladder. Get help right away if you: Have bright red blood in your urine. Are unable to pass urine. Summary A botulinum toxin bladder injection is a procedure to treat an overactive bladder. This is generally a safe procedure. However, problems may occur, including not being able to pass urine, bleeding, infection, pain, and an allergic reaction to the botulinum toxin. You will be told when to stop eating and drinking, and what medicines to change or stop. Follow instructions carefully. After the procedure, it is common to have blood in your urine and to have soreness or burning when passing urine. Contact a health care provider if you have a fever, blood in your urine for more than a few days, or trouble passing urine. Get help right away if you have bright red blood in your urine, or if you are unable to pass urine. This information is not intended to replace advice given to you by your health care provider. Make sure you discuss any questions you have with your health care provider. Document Revised: 01/23/2022 Document Reviewed: 01/23/2022 [employer] [place] Patient Education 2022 [employer]. Follow Up Care 03/17/2023 11:32:09 With:Brian LUGO, PEDRO Bernal, URO Address: When: Unknown [facility] 03-22-2024 Note Patient Education Obstetrics and Gynecology Overactive Bladder, Adult Overactive bladder is a condition in which a person has a sudden and frequent need to urinate. A person might also leak urine if he or she cannot get to the bathroom fast enough (urinary incontinence). Sometimes, symptoms can interfere with work or social activities. What are the causes? Overactive bladder is associated with poor nerve signals between your bladder and your brain. Your bladder may get the signal to empty before it is full. You may also have very sensitive muscles that make your bladder squeeze too soon. This condition may also be caused by other factors, such as: ? Medical conditions: ? Urinary tract infection. ? Infection of nearby tissues. ? Prostate enlargement. ? Bladder stones, inflammation, or tumors. ? Diabetes. ? Muscle or nerve weakness, especially from these conditions: ? A spinal cord injury. ? Stroke. ? Multiple sclerosis. ? Parkinson's disease. ? Other causes: ? Surgery on the uterus or urethra. ? Drinking too much caffeine or alcohol. ? Certain medicines, especially those that eliminate extra fluid in the body (diuretics). ? Constipation. What increases the risk? You may be at greater risk for overactive bladder if you: ? Are an older adult. ? Smoke. ? Are going through menopause. ? Have prostate problems. ? Have a neurological disease, such as stroke, dementia, Parkinson's disease, or multiple sclerosis (MS). ? Eat or drink alcohol, spicy food, caffeine, and other things that irritate the bladder. ? Are overweight or obese. What are the signs or symptoms? Symptoms of this condition include a sudden, strong urge to urinate. Other symptoms include: ? Leaking urine. ? Urinating 8 or more times a day. ? Waking up to urinate 2 or more times overnight. How is this diagnosed? This condition may be diagnosed based on: ? Your symptoms and medical history. ? A physical exam. ? Blood or urine tests to check for possible causes, such as infection. You may also need to see a health care provider who specializes in urinary tract problems. This is called a urologist. How is this treated? Treatment for overactive bladder depends on the cause of your condition and whether it is mild or severe. Treatment may include: ? Bladder training, such as: ? Learning to control the urge to urinate by following a schedule to urinate at regular intervals. ? Doing Kegel exercises to strengthen the pelvic floor muscles that support your bladder. ? Special devices, such as: ? Biofeedback. This uses sensors to help you become aware of your body's signals. ? Electrical stimulation. This uses electrodes placed inside the body (implanted) or outside the body. These electrodes send gentle pulses of electricity to strengthen the nerves or muscles that control the bladder. ? Women may use a plastic device, called a pessary, that fits into the vagina and supports the bladder. ? Medicines, such as: ? Antibiotics to treat bladder infection. ? Antispasmodics to stop the bladder from releasing urine at the wrong time. ? Tricyclic antidepressants to relax bladder muscles. ? Injections of botulinum toxin type A directly into the bladder tissue to relax bladder muscles. ? Surgery, such as: ? A device may be implanted to help manage the nerve signals that control urination. ? An electrode may be implanted to stimulate electrical signals in the bladder. ? A procedure may be done to change the shape of the bladder. This is done only in very severe cases. Follow these instructions at home: Eating and drinking ? Make diet or lifestyle changes recommended by your health care provider. These may include: ? Drinking fluids throughout the day and not only with meals. ? Cutting down on caffeine or alcohol. ? Eating a healthy and balanced diet to prevent constipation. This may include: ? Choosing foods that are high in fiber, such as beans, whole grains, and fresh fruits and vegetables. ? Limiting foods that are high in fat and processed sugars, such as fried and sweet foods. Lifestyle ? Lose weight if needed. ? Do not use any products that contain nicotine or tobacco. These include cigarettes, chewing tobacco, and vaping devices, such as e-cigarettes. If you need help quitting, ask your health care provider. General instructions ? Take jori-zpt-rwlmdio and prescription medicines only as told by your health care provider. ? If you were prescribed an antibiotic medicine, take it as told by your health care provider. Do not stop taking the antibiotic even if you start to feel better. ? Use any implants or pessary as told by your health care provider. ? If needed, wear pads to absorb urine leakage. ? Keep a log to track how much and when you drink, and when you need to urinate. This will help your health care (more content not included)... [facility] 11-17-2023 Note Chief Complaint consultation for weight [...] Oral, Daily Belb (more content not included)... [facility] Comment on above: Result Comment: Elec tronically Signed By: CHRISTIAN LUGO, Giorgio Lennon\Date and Time Signed: 11/17/23 16:31 EDT 08-30-2023 Evaluation note Encounter Date Diagnosis Assessment Notes Aug, Elevated TSH (ICD-10 - R94.6) [facility] Other 01-22-2024 Evaluation note* Encounter Date Diagnosis Assessment Notes Treatment Notes Treatment Clinical Notes Aug, Weight loss, unintentional (ICD-10 - R63.4) [facility] Other 01-11-2024 Evaluation note* Encounter Date Diagnosis [...] use, the patient reduces the risk for RI, CVA, HTN, cardiac dysrhythmias and sudden cardiac [...] Z85.89) Tonsil No s/s recurrence f/u ENT [facility] Other 01-09-2024 Evaluation note* Encounter Date Diagnosis Assessment Notes Treatment Notes Treatment Clinical Notes Aug, Lumbar spondylosis (ICD-10 - M47.816) [facility] Other 12-26-2023 Evaluation note* Encounter Date Diagnosis Assessment Notes Treatment Notes Treatment Clinical Notes Jul, Lumbar spondylosis (ICD-10 - M47.816) Jul, Gastroesophageal ref lux disease with esophagitis without hemorrhage (ICD-10 - K21.00) [facility] Other 12-06-2023 Evaluation note* Encounter Date Diagnosis Assessment Notes Treatment Notes Treatment Clinical Notes Jul, Weight loss, unintentional (ICD-10 - R63.4) [facility] Other 11-30-2023 Evaluation note* Encounter Date Diagnosis [...] use, the patient reduces the risk for RI, CVA, HTN, cardiac dysrhythmias and sudden cardiac [...] - C61) No obvious s/s recurrence f/u [facility] Other 11-12-2023 NoteAdmission and Discharge Information Admit [...] 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 In ER patient was positive for COVID [...] PCP in 5 to 7 days ? Bottom Buffer in 2 to 4 weeks for possible [...] 75.0 % Lymph Auto - 17.8 % Coffey Auto - 6.9 % Eos Auto - 0.0 % Basophil Auto - 0.3 % Neutro Absolute - 3.6 E9/L Lymph Absolute - 0.8 E9/L Coffey Absolute - 0.3 E9/L Eos Absolute - [...] % O2 Sat Art - 98.8 % manager spanish+ Art - 138.0 mmol/L cK+ Art - [...] - 120 mg/dL POC Device SN - [id number] POC User ID - [id number] POC Username - LUCY KAPADIA CBC w/ Auto Diff (05/30/2023) WBC - 4.8 E9/L RBC - 4.5 E12/L Hgb - 13.1 gm/dL Hct - 39.3 % MCV - 86.4 fL MCH - 28.8 pg MCHC - 33.3 gm/dL RDW - 13.1 % Platelet - 167.0 E9/L MPV - 8.5 fL CMP (05/29/2023) Glucose Lvl - 93 mg/dL BUN - (more content not included)...[facility]: Result Comment: Electronically Signed By: Jossue Spivey DO\.br\Date and Time Signed: 06/13/23 10:22 [id number] NoteMicrobiology PROCEDURE: Blood Culture Charcoal [R1] SOURCE: Blood BODY SITE: Hand R COLLECTED DATE/TIME: 05/28/2023 15:45 EDT RECEIVED DATE/TIME: 05/28/2023 16:53 EDT START DATE/TIME: 05/28/2023 16:53 EDT FREE TEXT SOURCE: Jossue Spivey DO, DO, William J. FINAL REPORTS Final Report [] Verified Date/Time: 06/04/2023 18:00 EDT No growth at 7 days. Performing Locations R1: This test was performed at: [facility], [address] [place] [address], [id number] [place] [address], EgsqjkCleveland Clinic FoundationComment on above:Performed By: #### [id number], [id number] #### [facility] [address] [place] [address] [id number] NoteMicrobiology PROCEDURE: Blood Culture Charcoal [R1] SOURCE: Blood BODY SITE: Arm R COLLECTED DATE/TIME: 05/28/2023 14:34 EDT RECEIVED DATE/TIME: 05/28/2023 15:31 EDT START DATE/TIME: 05/28/2023 15:31 EDT FREE TEXT SOURCE: Jossue Spivey DO, DO, Jossue Sher FINAL REPORTS Final Report [] Verified Date/Time: 06/04/2023 16:01 EDT No growth at 7 days. Performing Locations R1: This test was performed at: [facility], [address] [place] [address], [id number] [place] [address], OohfkzCleveland Clinic FoundationComment on above:Performed By: #### [id number] #### [facility] [address] [place] [address] [id number] Evaluation note* Encounter Date Diagnosis Assessment Notes Treatment Notes Treatment Clinical Notes Jun, Lumbar spondylosis (ICD-10 - M47.816) [facility] Other 10-31-2023 NoteMicrobiology PROCEDURE: Blood Culture Charcoal [R1] SOURCE: Blood BODY SITE: Wrist L COLLECTED DATE/TIME: 05/27/2023 13:50 EDT RECEIVED DATE/TIME: 05/27/2023 14:24 EDT START DATE/TIME: 05/27/2023 14:25 EDT FREE TEXT SOURCE: IV start Barney Duncan PA-C, PA-C, Barney Mireles FINAL REPORTS Final Report [...] Locations R1: This test was performed at: [facility], [address] [place] [address], [id number] , , HpakwuCleveland Clinic FoundationComment on above:Performed By: #### [id number] #### [facility] [address] [place] [address] [id number] NoteMicrobiology PROCEDURE: Blood Culture Charcoal [R1] SOURCE: [...] Locations R1: This test was performed at: [facility], [address] [place] [address], [id number]- , , AqluxqCleveland Clinic FoundationComment on above:Performed By: #### [id number], [id number] #### [facility] [address] [place] [address] [id number] Evaluation + Plan noteExtracted from: Title:APSO Note Author:Jossue Spivey DO e:05/30/23 1. COVID-19 (U07.1: COVID-19 ) Remdesivir started 05/27, complete 5 days DEXA started 05/27, complete 10 days -Patient on room air, can likely stop remdesivir at discharge Ordered: [facility] Hospital Care/Day Moderate 35 Minutes [id number] 2. Acute hypoxemic respiratory failure (J96.01: Acute [...] Ordered: Initial Hospital Care/Day Moderate 55 Minutes [id number] 2. Acute hypoxemic respiratory failure (J96.01: Acute [...] ER -remdesivir started 05/27 -Dexa 05/27 Ordered: [facility] Hospital Care/Day Moderate 35 Minutes [id number] 2. Acute hypoxemic respiratory failure (J96.01: Acute [...] Ordered: Initial Hospital Care/Day Moderate 55 Minutes 33534 2. Acute hypoxemic respiratory failure (J96.01: Acute [...] Extracted from: Title:ED Note Author:Barney Duncan PA-C e:05/27/23 Acute hypoxemic respiratory failure (J96.01: Acute [...] Therapy PT & PTT Rapid COVID Antigen ([facility]) Saline Lock Insert Troponin 0 Hr. Troponin 3 Hr. Troponin 6 Hr. Troponin 9 Hr. XR Chest Single View Future Appointments Appointment Date:03/22/2024 10:45:00 AM Scheduled Provider:Brian LUGO, Kayla Dubose Location:[facility] Appointment Type:URO Office Visit Diagnostic Tests Pending * Vancomycin Level Trough 06/01/23 [facility]10-29-2023 Hospital Discharge instructions Patient Education 05/30/2023 09:29:42 [...] managed at home with rest, fluids, and actj-hvy-sybkkfq medicines. Serious symptoms may be treated in [...] water are not available, use alcohol-based hand dungeon master. Make sure that all people in your [...] managed at home with rest, fluids, and cutb-ryc-bzrgpqv medicines. This information is not intended to replace advice given to you by your health care provider. Make sure you discuss any questions you have with your health care provider. Document Revised: 07/09/2022 Document Reviewed: 07/09/2022 [employer] [place] Patient Education 2022 [employer]. Follow Up Care 05/27/2023 13:13:17 With:Sree LUGO, Pawel Fried, PUL, FATOUMATA Address: [address] [place] [address] [facility] [place] [address]- When:2 to 4 weeks Comments:Call for followup appointment for possible outpatient sleep study [facility]10-29-2023 NoteAssessment/Plan 1. COVID-19 (U07.1: COVID-19) ? Remdesivir started 05/27, complete 5 days ? DEXA started 05/27, complete 10 days -Patient on room air, can likely stop remdesivir at discharge Ordered: [facility] Hospital Care/Day Moderate 35 Minutes [id number] 2. Acute hypoxemic respiratory failure (J96.01: Acute [...] 06:18:00) Lymph Auto: 17.8 % (05/30/23 06:18:00) Coffey Auto: 6.9 % (05/30/23 06:18:00) Eos Auto: 0 % (05/30/23 06:18:00) Basophil Auto: 0.3 % (05/30/23 06:18:00) Neutro Absolute: 3.6 E9/L (05/30/23 06:18:00) Lymph Absolute: 0.8 E9/L Low (05/30/23 06:18:00) Coffey Absolute: 0.3 E9/L (05/30/23 06:18:00) Eos Absolute: [...] DR Tab, Oral, Daily (more content not included)...[facility] FoundationComment on above:Result Comment: Electronically Signed By: Jossue Spivey DO\.br\Date and Time Signed: 05/30/23 09:32 [id number] NoteAssessment/Plan 1. COVID-19 (U07.1: COVID-19) ? Remdesivir started 05/27, completed 5 days ? DEXA started 05/27, complete 10 days Ordered: Initial Hospital Care/Day Moderate 55 Minutes 92758 2. Acute hypoxemic respiratory failure (J96.01: Acute [...] Lymph Auto: 12.6 % Low (05/29/23 05:56:00) Coffey Auto: 7.5 % (05/29/23 05:56:00) Eos Auto: 0.2 % (05/29/23 05:56:00) Basophil Auto: 0.2 % (05/29/23 05:56:00) Neutro Absolute: 4.6 E9/L (05/29/23 05:56:00) Lymph Absolute: 0.7 E9/L Low (05/29/23 05:56:00) Coffey Absolute: 0.4 E9/L (05/29/23 05:56:00) Eos Absolute: [...] 05:56:00) Calcium Lvl: 8.6 (more content not included)...[facility] Comment on above:Result Comment: Electronically Signed By: Jossue Spivey DO\.br\Date and Time Signed: 05/29/23 09:30 [id number] NoteAssessment/Plan 1. COVID-19 (U07.1: COVID-19) tested positive in ER -remdesivir started 05/27 -Dexa 05/27 Ordered: [facility] Hospital Care/Day Moderate 35 Minutes [id number] 2. Acute hypoxemic respiratory failure (J96.01: Acute [...] Lymph Auto: 6.8 % Low (05/28/23 06:12:00) Coffey Auto: 3.6 % Low (05/28/23 06:12:00) Eos Auto: 0 % (05/28/23 06:12:00) Basophil Auto: 0.1 % (05/28/23 06:12:00) Neutro Absolute: 4.9 E9/L (05/28/23 06:12:00) Lymph Absolute: 0.4 E9/L Low (05/28/23 06:12:00) Coffey Absolute: 0.2 E9/L (05/28/23 06:12:00) Eos Absolute: 0 E9/L (05/28/23 06:12:00) Basophil Absolute: 0 E9/L (05/28/23 06:12:00) PT: 14.2 second(s) High (05/27 (more content not included)...[facility] FoundationComment on above:Result Comment: Electronically Signed By: Jossue Spivey DO\.br\Date and Time Signed: 05/28/23 09:48 [id number] NotePT Evaluation done this date. Pt. with on AM-PAC this date. He is safe and independent with all functional activities. Does have some decreased endurance. Educated on getting up to chair throughout the day. No further PT needs.[facility]10-26-2023 NoteBasic Information Admit Date/Time:05/27/2023 16:03 Chief Complaint [...] normally does. 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 Patient denies alcohol use and states he smoked a long time ago. Patient states he did get the COVID-vaccine but did not get booster this year. is also concerned that he has been acting off lately and is worried about possible UTI. Patient does have history of prostate as well as tonsil cancer and follows with oncologist in [place]. Patient has not had any type of [...] Lymph Auto: 2.1 % Low (05/27/23 13:50:00) Coffey Auto: 4.6 % (05/27/23 13:50:00) Eos Auto: 0.1 % (05/27/23 13:50:00) Basophil Auto: 0 % (05/27/23 13:50:00) Neutro Absolute: 8.3 E9/L High (05/27/23 13:50:00) Lymph Absolute: 0.2 E9/L Low (05/27/23 13:50:00) Coffey Absolute: 0.4 E9/L (05/27/23 13:50:00) Eos Absolute: [...] O2 Sat Art: 98.8 % (05/27/23 13:39:00) manager spanish+ Art: 138 mmol/L (05/27/23 13:39:00) cK+ Art: 4.3 mmol/L (05/27/23 13:39:00) cCa2+ Art: 4.56 mg/dL (05/27/23 13:39:00) cCl- Art: 95 mmol/L Low (05/27/23 13:39:00) cGlu Art: 100 mg/dL High (05/27/23 13:3 (more content not included)...[facility] FoundationComment on above:Result Comment: Electronically Signed By: Jossue Spivey DO\.br\Date and Time Signed: 05/27/23 17:45 [id number] Evaluation note* Encounter Date Diagnosis Assessment Notes Treatment Notes Treatment Clinical Notes Apr, Lumbar spondylosis (ICD-10 - M47.816) [place] [facility] Other 08-16-2023 Hospital Discharge instructions Patient Education [...] provider. Document Revised: 11/27/2021 Document Reviewed: 11/27/2021 [employer] [place] Patient Education 2022 [employer]. Follow Up Care 12/02/2022 09:06:34 With:Brian LUGO, PEDRO Bernal, URO Address: When:Within 1 Year(s) Comments:w/PSA [facility] 08-10-2023 Evaluation note* Encounter Date Diagnosis Assessment Notes Treatment Notes Treatment Clinical Notes Mar, Lumbar spondylosis (ICD-10 - M47.816) [facility] Other 07-11-2023 Evaluation note* Encounter Date Diagnosis Assessment Notes Treatment Notes Treatment Clinical Notes Jan, Lumbar spondylosis (ICD-10 - M47.816) [facility] Other 06-06-2023 Evaluation note* Encounter Date Diagnosis Assessment Notes Treatment Notes Treatment Clinical Notes Dec, Lumbar spondylosis (ICD-10 - M47.816) [facility] Other 05-31-2023 Evaluation note* Encounter Date Diagnosis [...] use, the patient reduces the risk for RI, CVA, HTN, cardiac dysrhythmias and sudden cardiac [...] now. November, Lumbar spondylosis (ICD-10 - M47.816) [facility] Other 05-03-2023 Hospital Discharge instructions Patient Education [...] if anything looks unusual. Men with a aocuhg-wovg-ofmxan risk for skin cancer may want to see a skin care instructor (plunger shovel operator) for an annual body check. What are the benefits of screening? Cancer screening is done to look for cancer in the very early stages, before it spreads and becomesharder to treat and before you would start to notice symptoms. Finding cancer early improves the chances of successful treatment. It may save your life. Where to find more information [place] [employer]: www.cancer.org Centers for Disease Control and Prevention: www.cdc.gov National Cancer [place]: www.cancer.gov Contact a health care provider if: [...] provider. Document Revised: 12/15/2021 Document Reviewed: 06/14/2020 [employer] [place] Patient Education 2022 [employer]. Follow Up Care 11/11/2021 11:50:16 With:Brian LUGO, PEDRO Bernal, URO Address: When: Unknown [facility] 03-31-2023 Evaluation note* Encounter Date Diagnosis Assessment Notes Treatment Notes Treatment Clinical Notes Sep, Lumbar spondylosis (ICD-10 - M47.816) [place] [facility] Other 02-28-2023 Evaluation note* Encounter Date Diagnosis [...] use, the patient reduces the risk for RI, CVA, HTN, cardiac dysrhythmias and sudden cardiac [...] (ICD-10 - Z85.89) Tonsil No s/s recurrence [facility] Other Evaluation + Plan note Future Appointments Appointment Date:03/17/2023 10:30:00 AM Scheduled Provider:Kayla Torres MD Location:[facility] Appointment Type:URO Office Visit Diagnostic Tests Pending * PSA Total 12/02/22 [facility] [facility] evaluation + Plan note Future Appointments Appointment Date:03/22/2024 10:45:00 AM Scheduled Provider:Kayla Torres MD Location:[facility] Appointment Type:URO Office Visit [facility] evaluation + Plan note Future Appointments Appointment Date:06/07/2024 10:45:00 AM Scheduled Provider:Brian LUGO, Kayla Dubose Location:[facility] Appointment Type:URO Office Visit [facility] Other Evaluation note* Diagnosis Onset Date Resolution Status Gastroesophageal reflux dise ase with esophagitis without hemorrhage acute High cholesterol acute Hypertension acute Lumbar spondylosis acute Mild episode of recurrent major depressive disorder acute PANCHITO (obstructive sleep apnea) acute Unexplained weight loss acut e [facility] Work Phone: Evaluation note* Diagnosis Onset Date Resolution Status Gastroesophageal reflux dise ase with esophagitis without hemorrhage acute High cholesterol acute Hypertension acute Lumbar spondylosis acute Mild episode of recurrent major depressive disorder acute PANCHITO (obstructive sleep apnea) acute Wellness examination acute [facility] Work Phone: Hiselgv general Narrative - Reported* Type Description Date [...] patient has jose davidson been hospitalized for [facility] Other Hissnpm general Narrative - Reported* Type Description Date [...] patient has jose davidson been hospitalized for [facility] Other History general Narrative - Reported* Type [...] patient has jose davidson been hospitalized for [facility] Other Hospital course Narrative No data available for this section [facility] Discharge instructions No data available for this section [facility] No data available for this section [facility] reason for referral (narrative)* Reason *Waiting for appt Referral for EGD and Colonoscopy for continued weight loss and mild anemia Diagnosis 1 Weight loss, uninten tional (R63.4) Referral Organization [facility] Referring Provider First Name Sammy Referring Provider Last Name Willy Referring Provider Specialty Internal Me dicine Referred Organization [facility] Gastroenterolo gy Referred Provider Jillian Rodas Referred Address [address] [place] [phone] Referred Provider Specialty Gastroentero logy Referral Priority [...] faxed P2P Clinical Notes Include CT abdomen/p Grupanya Other Summary Purpose Family History No Family History Records Found Relationship Condition Age at Onset Recorded Date/T jovanny father Arthritis Unknown Hypertension Unknown family member Unknown Not Specified Malignant neoplasm of breast Unknown Malignant neoplasm Unknown Diabetes mellitus Unknown Unknown sibling Hypertension Unknown sister Malignant neoplasm Unknown Relationship Condition Age at Onset Recorded Date/T jovanny father Arthritis Unknown Hypertension Unknown family member Unknown mother Malignant neoplasm of breast Unknown Malignant neoplasm Unknown Diabetes mellitus Unknown Unknown sibling Hypertension Unknown sister Malignant neoplasm Unknown Advance Directives No Advanced Directives Records Found Advance Directive Response Recorded Date/ Time Advance Directives No October 11, 2 024 3:44pm Chief Complaint and Reason for Visit Chief Complaint Amb Documentation Check up Reason for Visit Gastroesophageal ref lux disease with esophagitis without hemorrhage High cholesterol Hypertension Lumbar spondylosis Mild episode of recurrent major depressive disorder PANCHITO (obstructive sleep apnea) Unexplained weight loss Chief Complaint wellness Reason for Visit Gastroesophageal ref lux disease with esophagitis without hemorrhage High cholesterol Hypertension Lumbar spondylosis Mild episode of recurrent major depressive disorder PANCHITO (obstructive sleep apnea) Wellness examination Additional Source Comments REASON FOR VISIT (unrecogniz [...] November 10, 2023 End: November 10, 2023 Team Status: Active Member Role Status Dates Sammy Aguilera DO Primary Care Provide r, Attending Provider Active Start: January 17, 2024 Team Status: Inactive Member Role Status Dates Sammy Aguilera DO Primary Care Provide r, Attending Provider Active Start: February 10, 2024 End: February 10, 2024 (unrecognized sect ion and content) No Status Records FoundNo Status Records FoundNo Status Records Found INFORMATION SOURCE (unrecogn ized section and content) DATE CREATED AUTHOR 12/04/2022 [facility] DATE CREATED AUTHOR AUTHOR'S ORGANIZ ATION 03/24/2024 [facility] DATE CREATED AUTHOR AUTHOR'S MICKEY JUDGE 03/26/2024 [facility] Goals (unrecognized section and content) Goals may [...] BE BASED ON THE PRIMARY CLINICAL RECORDS. [facility] [employer] provides no warranty or guarantee of the accuracy or completeness of information in this document.
== END 2024-04-10 20:42 | disposition home or self-care (01) ==
LOC: SLEEP 20:51
PROVIDERS: PCP Physician Assistant; Visit Provider Physician Assistant
DX: G47.33 Obstructive sleep apnea (adult) (pediatric) (principal); G47.11 Idiopathic hypersomnia with long sleep time
CPT/HCPCS: 95811

== ENCOUNTER 2024-12-29 13:57 | Outpatient (OUT) | payer BC, MEDICARE, SELFPAY ==
[2024-12-29 15:30] LABS: Prostate Specific Antigen Dx <0.13 ng/mL (<=4.00)
== END 2024-12-29 13:58 | disposition home or self-care (01) ==
LOC: LAB 13:59
PROVIDERS: PCP Internal Medicine; Visit Provider Physician Assistant
DX: C61 Malignant neoplasm of prostate (principal)
CPT/HCPCS: 36415; 84153

== ENCOUNTER 2025-02-28 08:33 | Outpatient (OUT) | payer BC, MEDICARE, SELFPAY ==
--- OUTSIDE RECORDS SUMMARY | 2025-02-20 08:32 | XMS_ITS | Continuity of Care Document ---
Author Organization [facility] Address [address] [place] [address] Phone Care Team Providers Care Vp Biology Name Role Phone Willy Sammy AGUILERA Primary Care Provider Susan Bridges PA-C Attending Provider [phone] Sammy Aguilera DO Attending Provider [phone] Care Teams Patient Care Team Team Status: Active Member Role Status Dates Sammy Aguilera DO Primary Care Provider Active Visit Care Team Team Status: Active Member Role Status Dates Sammy Aguilera DO Primary Care Provider Active Start: December 29, 2024 Susan Bridges PA-C Attending Provider Active Start: December 29, 2024 Patient Care Team Team Status: Inactive Member Role Status Dates Sammy Aguilera DO Primary Care Provider Active Start: February 20, 2025 End: February 20, 2025 Sammy Aguilera DO Attending Provider Active Sta rt: February 20, 2025 End: February 20, 2025 Chief Complaint and Reason for Visit Chief Complaint Admit Date Wellness February 20, 2025 11:2 8am Reason for Visit Admit Date Anemia February 20, 2025 11:2 8am Constipation February 20, 2025 11:2 8am Gastroesophageal reflux dise ase with esophagitis without hemorrhage February 20, 2025 11:28am High cholesterol February 20, 2025 11:2 8am Hypertension February 20, 2025 11:2 8am Lumbar spondylosis February 20, 2025 11:2 8am Mild episode of recurrent major depressi ve disorder February 20, 2025 11:28am Opiate analgesic use agreement exists Ju ly 2024 11:28am PANCHITO (obstructive sleep apnea) February 20, 2025 11:28am Prostate cancer February 20, 2025 11:2 8am Wellness examination February 20, 2025 11: 28am Allergies, Adverse Reactions, Alerts Allergen Type Severity Reaction Last Updated Verified Status No Known Allergies Allergy Unknown February 20, 2025 12:07 pm Yes Active Social History Smoking Status Status Start Date End Date Date of Observa tion Never smoked tobacco (finding) August 12, 2023 11:33am Observation Status Observation Response Date of Response Legal Sex Male (finding) Sex Assigned At Male 1960 Family History Relationship Condition Age at Onset Recorded Date/T jovanny father Arthritis Unknown Hypertension Unknown family member Unknown mother Malignant neoplasm of breast Unknown Hypertension Unknown Malignant neoplasm Unknown Diabetes mellitus Unknown Unknown sibling Hypertension Unknown Malignant neoplasm Unknown sister Malignant neoplasm Unknown Unknown Problems Active Problems Medical Problem Onset Date Status Gastroesophageal reflux disease with esophagitis without hemorrhage Unknown Active Primary insomnia Unknown Active PANCHITO (obstructive sleep apnea) Unknown Ac tive Nonalcoholic fatty liver disease Unknown Active Throat cancer Unknown Active Myalgia Unknown Active Prostate cancer Unknown Active Opiate analgesic use agreement exists Unknown Active High cholesterol Unknown Active Anemia Unknown Active Wellness examination Unknown Active Thrombocytopenia Unknown Active Mild episode of recurrent major depressive disor oluann Unknown Active Unexplained weight loss Unknown Active Chronic headaches Unknown Active Hypertension Unknown Active Constipation Unknown Active Lumbar spondylosis Unknown Active Medications Medication Status Dose Units Route Directions Qty Days St art Date Stop Date End Date Instructions Adherence Pravastatin 80 mg tablet Discont inued 0 .ROUTE .COMPLEX 90 November 11, 2023 8:43pm October 24, 2024 12:01 pm TAKE 1 TABLET BY MOUTH EVERY DAY IN THE EVENING Buprenorphi ne 20 mcg/hour patch weekly Discont inued 1 PATCH TRANSD ERML Q7D as needed for pain 4 November 15, 2023 6:08pm December 15, 2023 4:11p m Buprenorphi ne 20 mcg/hour patch weekly Discont inued 1 PATCH TRANSD ERML Q7D as needed for pain 4 December 15, 2023 4:11pm January 13, 2024 12:59 pm Buprenorphi ne 20 mcg/hour patch weekly Discont inued 1 PATCH TRANSD ERML Q7D as needed for pain 11 27January 13, 2024 12:58p m February 10, 2024 10:44 pm p/u 01/12, start 01/13 Buprenorphi ne 20 mcg/hour patch weekly Discont inued 1 PATCH TRANSD ERML Q7D as needed for pain 11 27March 21, 2024 10:02a m Septe mber 2023 12:59 pm start 03/21 Buprenorphi ne 20 mcg/hour patch weekly Discont inued 1 PATCH TRANSD ERML Q7D as needed for pain 11 27 Septem clif 2023 12:59p m Octob er 2023 7:36a m start 04/26 Pregabalin 150 mg capsule Discont inued 150 MG PO Three times daily 270 90 Octobe r 2023 8:48pm February 05, 2025 3:18p m Celecoxib 200 mg capsule Active 0 .ROUTE .COMPLEX 90 Octobe r 2023 7:13am TAKE 1 CAPSULE BY MOUTH EVERY DAY FOR 90 DAYS Complies with drug therapy Ropinirole 1 mg tablet Active 0 .ROUTE .COMPLEX 90 Octobe r 2023 9:59pm TAKE 1 TABLET BY MOUTH EVERY DAY Complies with drug therapy Buprenorphi ne 20 mcg/hour patch weekly Discont inued 1 PATCH TRANSD ERML Q7D as needed for pain 11 27 Octobe r 2023 7:35am Novem clif 2023 10:40 am p/u 05/24, start 05/26 Buprenorphi ne 20 mcg/hour patch weekly Discont inued 1 PATCH TRANSD ERML Q7D as needed for pain 11 27 Novemb er 2023 10:39a m Decem clif 2023 9:14a m p/u 06/23, start 06/25 Buprenorphi ne 20 mcg/hour patch weekly Discont inued 1 PATCH TRANSD ERML Q7D as needed for pain 11 27 Decemb er 2023 9:14am Febru antonette 2024 2:06p m p/u 07/23, start 07/25 Omeprazole 20 mg capsule,del ayed release(/ EC) Active 0 .ROUTE .COMPLEX 90 Auguar y 2024 4:44pm TAKE 1 CAPSULE BY MOUTH DAILY Complies with drug therapy Buprenorphi ne 20 mcg/hour patch weekly Discont inued 1 PATCH TRANSD ERML Q7D as needed for pain ua ry 2024 2:06pm October 06, 2024 9:38a m Buprenorphi ne 20 mcg/hour patch weekly Discont inued 1 PATCH TRANSD ERML Q7D as needed for pain 4 October 06, 2024 9:38am November 08, 2024 9:20a m p/u 10/06, start 10/08 Amlodipine- Benazepril 2.5-10 mg capsule Active 0 .ROUTE .COMPLEX October 18, 2024 7:14am TAKE 1 CAPSULE BY MOUTH ONCE A DAY DIRECTED FOR 90 DAYS Complies with drug therapy Pravastatin 80 mg tablet Active 0 .ROUTE .COMPLEX October 24, 2024 12:01p m TAKE 1 TABLET BY MOUTH EVERY DAY IN THE EVENING Complies with drug therapy Buprenorphi ne 20 mcg/hour patch weekly Discont inued 1 PATCH TRANSD ERML Q7D as needed for pain 11 27November 08, 2024 9:18am December 06, 2024 7:43a m Buprenorphi ne 20 mcg/hour patch weekly Discont inued 1 PATCH TRANSD ERML Q7D as needed for pain 4 December 06, 2024 7:42am January 08, 2025 5:51p m p/u 12/06, start 12/08 Buprenorphi ne 20 mcg/hour patch weekly Discont inued 1 PATCH TRANSD ERML Q7D as needed for pain 11 27January 08, 2025 5:51pm February 12, 2025 11:04 pm Pregabalin 150 mg capsule Active 150 MG PO Three times daily February 05, 2025 3:17pm Complies with drug therapy Tizanidine 4 mg tablet Active 4 MG PO Three times daily February 07, 2025 2:46pm 1 and 1/2 tablet as needed Orally Three times a day Complies with drug therapy Buprenorphi ne 20 mcg/hour patch weekly Active 1 PATCH TRANSD ERML Q7D as needed for pain 11 27February 12, 2025 11:03p m Complies with drug therapy Amlodipine- Benazepril 2.5-10 mg capsule Discont inued 1 CAP PO Daily November 06, 2023 12:00a m October 18, 2024 7:14a m Aspirin 81 mg tablet,edwin yed release (DR/EC) Active 81 MG PO Daily November 06, 2023 12:00a m Complies with drug therapy Buprenorphi ne Hcl (Belbuca) 150 mcg film Discont inued 150 MCG BUCCAL Every 12 hours November 06, 2023 12:00a m November 15, 2023 6:07p m Celecoxib 200 mg capsule Discont inued 200 MG PO Daily November 06, 2023 12:00a m Octob er 2023 7:13a m Divalproex 500 mg tablet extended release 24 hr Active 1000 MG PO Daily November 06, 2023 12:00a m Complies with drug therapy Pregabalin 150 mg capsule Discont inued 150 MG PO Three times daily November 06, 2023 12:00a m Octob er 2023 8:49p m Pantoprazol e 40 mg tablet,edwin yed release (DR/EC) Discont inued 40 MG PO Daily November 06, 2023 12:00a m February 10, 2024 10:40 am Pravastatin 80 mg tablet Discont inued 80 MG PO Every evening November 06, 2023 12:00a m November 11, 2023 8:43p m Methylpheni date Hcl 20 mg tablet Discont inued 30 MG PO Daily November 06, 2023 12:00a m February 10, 2024 10:40 am Ropinirole 1 mg tablet Discont inued 1 MG PO Daily November 06, 2023 12:00a m Octob er 2023 9:59p m Tizanidine 4 mg tablet Discont inued 4 MG PO November 06, 2023 12:00a m February 07, 2025 2:48p m 1 and 1/2 tablet as needed Orally Three times a day Trazodone 100 mg tablet Active 300 MG PO Daily at bedtime November 06, 2023 12:00a m FreeTextSig: take 3 tablet Orally at bedtime; Note: Source Status: Taking; Provider: Willy Christianson ( ) Complies with drug therapy Vortioxetin e 20 mg tablet Active 20 MG PO Daily November 06, 2023 12:00a m Complies with drug therapy Amantadine Hcl 100 mg capsule Active 100 MG PO .QOD February 10, 2024 12:00a m Complies with drug therapy Aripiprazol e 10 mg tablet Active 10 MG PO Daily February 10, 2024 12:00a m Complies with drug therapy Buprenorphi ne 20 mcg/hour patch weekly Discont inued 1 PATCH TRANSD ERML Q7D as needed for pain 11 27February 10, 2024 10:44p m Augus t 2023 10:07 am p/u 02/10, start 02/12 Buprenorphi ne 20 mcg/hour patch weekly Discont inued 1 PATCH TRANSD ERML Q7D 2023 1:00am Febru antonette2023 11:44 am Buprenorphi ne 20 mcg/hour patch weekly Discont inued 1 PATCH TRANSD ERML Q7D as needed for pain 2023 11:42a m October 08, 2023 2:36p m Buprenorphi ne 20 mcg/hour patch weekly Discont inued 1 PATCH TRANSD ERML Q7D as needed for pain 11 27October 08, 2023 2:35pm November 15, 2023 6:09p m Omeprazole 20 mg capsule,del ayed release(DR/ EC) Discont inued 20 MG PO Daily October 18, 2023 12:00a m October 18, 2023 1:35p m Omeprazole 20 mg capsule,del ayed release(DR/ EC) Discont inued 20 MG PO Daily October 18, 2023 1:35pm 2024 4:44p m Immunizations Immunization Event Date Not Given Reason Dose Number Poultry Dressing Worker Lot Number Vaccine Information Statement (VIS) Detail Administration Location RECOMBINETICS/RentMonitor ty, Pediatric Age 5-11 July 14, 2022 COVID-19 [id number].COV2.S (wildcraft) October 07, 2020 COVID-19 [id number]-1273 (Moderna) July 15, 2021 COVID-19 mRNA Bivalent Booster (Pfizer) July 14, 2022 Fluzone TIV High-Dose 65YR+ May 16, 2024 [id number] [facility] Influenza Quadrivalent PF MDCK August 12, 2018 influenza, unspecified formulation May 21, 2017 influenza, unspecified formulation May 12, 2019 influenza, unspecified formulation June 30, 2021 influenza, unspecified formulation July 14, 2022 Quadrivalent Influenza July 14, 2022 Quadrivalent Influenza May 10, 2020 Tetanus, Diphtheria adult, 5 Lf pres free abs May 21, 2016 Tetanus, Diphtheria, Pertussis (Tdap) May 21, 2016 Trivalent Influenza Vaccine May 24, 2015 Trivalent Influenza Vaccine May 15, 2019 Relevant Diagnostic Tests and/or Laboratory Data Laboratory Results Test Collection Date/Time Result Date/Time Result Interpretation Reference Range Result Comment Performing Site Prostate Specific Antigen Total December 29, 2024 2:04pm December 29, 2024 2:04pm <0.13 ng/mL <=4.00 Vital Signs Vital Reading Result Reference Range Collection Date/Time Height 71 [in_i] February 20, 2025 12:10pm Weight 97.23 kg February 20, 2025 12:10pm Heart Rate 66 /min 60-100 February 20, 2025 12:10pm Respiratory rate 12 /min 12-24 February 20, 2025 12:10pm BP Systolic 135 mm[Hg] 100-140 February 20, 2025 12:10pm BP Diastolic 77 mm[Hg] 60-100 February 20, 2025 12:10pm BMI (Body Mass Index) 29.9 kg/m2 January 312024 12:10pm Advance Directives Advance Directive Response Recorded Date/ Time Advance Directives No October 11 3:44pm Insurance Providers Guarantor [place] Address [address] [place] [phone] Contact Info. Home Phone: Payer Policy Id Subscriber's Name Subscriber Id Effectiv e Date Expiration Date Loretta DURÁN [id number] Miriam Irizarry [id number] [facility] [id number] [place] [id number] Encounters Encounter Location(s) Arrival/Admit Date Discharge/Depart Date Provider(s) Non-patient / Non-visit -[facility] December 29, 2024 2:04pm Susan Bridges PA-C Departed Physician/Prov ider Office Visit -[facility] February 20, 2025 11:28am February 20, 2025 12:31pm Sammy Aguilera DO Recent Diagnosis Onset Date Admit Date Anemia Unknown February 20, 2025 11:28am Constipation Unknown February 20, 2025 11:28am Gastroesophageal reflux dise ase with esophagitis without hemorrhage Unknown February 20, 2025 11:28am High cholesterol Unknown February 20, 2025 11:28am Hypertension Unknown February 20, 2025 11:28am Lumbar spondylosis Unknown February 20 11:28am Mild episode of recurrent ma wiliam depressive disorder Unknown February 20, 2025 11:28am Opiate analgesic use agreement exists Unknown February 20, 2025 11:28am PANCHITO (obstructive sleep apnea) Unknown 2024 11:28am Prostate cancer Unknown February 20, 2025 11:28am Wellness examination Unknown February 20, 2025 11:28am Assessments Diagnosis Onset Date Resolution Status Admit Date Anemia acute February 20 11:28am Constipation acute February 20 11:28am Gastroesophageal reflux dise ase with esophagitis without hemorrhage acute February 20, 2025 11:28am High cholesterol acute January 11:28am Hypertension acute February 20 11:28am Lumbar spondylosis acute January 312024 11:28am Mild episode of recurrent ma wiliam depressive disorder acute February 20 11:28am Opiate analgesic use agreeme nt exists acute February 20, 2025 11:28am PANCHITO (obstructive sleep apnea) acute February 20, 2025 11:28am Prostate cancer acute January 11:28am Wellness examination acute February 20, 2025 11:28am Plan of Treatment Author Sammy [facility] Authored February 20, 2025 12:2 7pm I have instructed this patie nt to avoid bending, twisting or lifting. I have also instructed on use of intermittent heat and ice as needed. They may schedule a massage or gentle manipulation. I instructed them on the safe use of Tylenol, Lidocaine and stretching exercises. I informed them of alternative modes of treatment for severe pain, which may include referral to physical therapy or pain management. Continue Buprenorphine, Lyrica, Celebrex and Tizanidine without interruption I have instructed this patient to consume a healthy, low-fat, low-salt diet. I have also encouraged them to continue exercise with weight loss to achieve/maintain a BMI < 30. I have instructed this patient on the correct procedure for obtaining home BP measurements: - rest for 5 minutes w/o talking. - positioned w/ feet on floor and arms supported. - average best 2/3 readings w/ goal < 135/85. - update office w/ home readings in 2 weeks. Continue Lotrel without interruption I have instructed this patient on a low fat, high fiber diet and exercise. I have discussed the primary and secondary prevention benefits attributed to lowering LDL cholesterol. I have also discussed the medical treatment of elevated cholesterol, which is based on the 10 year ASCVD risk. Continue Pravastatin without interruption Instructed on a healthy diet and exercise routine. Instructed to continue medical treatment w/o interruption. Instructed to avoid abrupt d/c of medication due to w/d symptoms. f/u Psychiatry I have instructed this patient to avoid lying flat after eating. I have also recommended to avoid eating 2 hours prior to bedtime. They were also informed that smaller, frequent meals may be better tolerated. I have discussed additional treatment options for persistent symptoms, which includes: weight loss, H2 blockers and PPI. I have also instructed them to notify the office with any pain or difficulty swallowing. Continue Omeprazole without interruption Instructed to increase fluids to minimum of 48oz daily Increase dietary fiber Trial of Colace and/or Miralax, titrate to need, which has helped This patient is aware of the benefits associated with PANCHITO: With continued use, the patient reduces the risk for RI, CVA, HTN, cardiac dysrhythmias and sudden cardiac deaths. The patient is also aware of the association between PANCHITO and morning headaches, daytime somnolence, fatigue and obesity, which also has been improved with continued use. The patient is compliant with treatment, wearing the equipment every night for greater than 4 hours. The patient is instructed to continue use of the CPAP for PANCHITO treatment. Noncompliant, states doesn't need after losing weight No s/s recurrence Serial PSA continue to be suppressed Continue f/u This patient requires opiate use on a daily basis to control pain. This patient does not exhibit drug-seeking or aberrant behavior. This patient is able to continue with ADL, with an adequate quality of life, that they would not be able to achieve without the prescription pain medication. There has been no surgical treatment recommended for this condition. Use of non-opiate treatment should be continued, such as nonstrenuous and aquatic exercises. This patient has a pain management contract and they have been counseled on safe storage of the medication. They have been counseled on the risks of concomitant use with alcohol or sedating meds. PDMP is being followed and this patient's OAR[place] report is being monitored every 90 days. I have instructed this patient on the recommended lifestyle changes, which includes a low fat, high fiber diet along with a regular exercise routine. I have also reviewed the recommended age-appropriate preventive testing for this patient. I have also reviewed the recommended vaccines for their age and risk factors. Chronic anemia s/p referral to Hematology w/o treatment Recheck CBC, B12, Fe, FA Future Tests Future scheduled test information is unavailable Pending Tests Test Name Ordered Date Scheduled Date Comprehensive Metabolic Panel February 20, 2025 12 :22pm Future Visits Future appointment information is unavailable Referrals to Other Providers Referral information is unavailable Future Procedures Procedure Name Ordered Date Scheduled Date Vitamin B12 February 20, 2025 12:23pm Complete Blood Count Auto Diff February 20, 2025 1 2:22pm Ferritin February 20, 2025 12:23pm Folate February 20, 2025 12:23pm Lipid Panel February 20, 2025 12:22pm Future Medications Future medication information is unavailable Patient Instructions Patient instructions are unavailable
--- OUTSIDE RECORDS SUMMARY | 2025-02-28 08:39 | XMS_ITS | Encounter Summary ---
Author Organization [facility] Address [address] [facility] [place] [address] Care Team Providers Care Client Account Assistant Name Role Phone Sammy Aguilera Primary Care Provider [phone] Lilliam Dominguez SECURITY INTERN-GLASS CLEANING MACHINE TENDER Unavailable Lilliam Dominguez SECURITY INTERN-GLASS CLEANING MACHINE TENDER Unavailable Michelle Haro Unavailable Reason for Visit * Reason Comments Med Refill Encounter Details Date Type Department Care Team (Late st Contact Info) Description 04/29/2023 Refill [facility] [address] [facility] [address] [place] [phone] Lilliam Dominguez, SECURITY INTERN-GLASS CLEANING MACHINE TENDER [address] [place] [address] Major depression, recurrent, chronic ; Insomnia, unspecified type Social History Tobacco Use Types Packs/Day Years Used Date Smoking Tobacco: Never Smokeless Tobacco: Never Alcohol Use Standard Drinks/Week Comments Not Currently 0 (1 standard drink = 0.6 oz pure alcohol) Caffeine: 1-2 cups/day coffee PHQ-2 Answer Date Recorded Patient Health Questionnaire-2 Score 0 04/30/2023 Education Answer Date Recorded What is the highest level of school you have completed or the highest degree you have received? Some college, no degree 01/21/2023 Sex and Gender Information Value Date Recorded Sex Assigned at Not on file Legal Sex Male 7:23 PM EDT Gender Identity Male 10/14/2022 7:23 PM EDT Sexual Orientation Not on file Occupation Industry Job Start Date Job End Date Disabled Not on file Not on file Not on file documented as of this encounter Functional Status * Over the past 2 weeks, how often have you been bothered by any of the following problems? Question Answer Date of Assessment Author Little interest or pleasure in doing things Not at all 04/30/2023 11:06 AM EDT Jasmni Spain L PN Feeling down, depressed, or hopeless Not at all 04/30/2023 11:06 AM EDT Jasmin Spain L PN Patient Health Questionnaire -2 Score 0 04/30/2023 11:06 AM EDT Jasmin Spain L PN documented as of this encounter Plan of Treatment Upcoming Encounters Date Type Department Care Team (Late st Contact Info) Description 05/18/2025 9:00 AM EDT Office Visit [facility] [address] [place] [address] Lilliam Dominguez, SECURITY INTERN-GLASS CLEANING MACHINE TENDER [address] [address] documented as of this encounter Visit Diagnoses Diagnosis Major depression, recurrent, chronic Insomnia, unspecified type documented in this encounter Care Teams Client Account Assistant Relationship Specialty Start Date End Date Sammy Aguilera DO PCP - General Internal Medicine 01/08/23 Lilliam Dominguez SECURITY INTERN-GLASS CLEANING MACHINE TENDER [address] [facility] [address] [place] [address] [facility] 03/02/23 Lilliam Dominguez SECURITY INTERN-GLASS CLEANING MACHINE TENDER [address] [facility] 160 [place] [address] Nurse Practitioner Psychiatry 08/17/24 Michelle Haro PA [address] [address] Physician Crm System Administrator Neurology 08/30/24 documented as of this encounter
--- OUTSIDE RECORDS SUMMARY | 2025-02-28 08:39 | XMS_ITS | Clinical Summary ---
Author Organization [facility] Address [address] [place] [address] Care Team Providers Care Felter Tennis Balls Name Role Phone WillySammy Primary Care Provider [phone] Lilliam Dominguez CHAIRMAN & CEO-SALESPERSON MEATS Unavailable Michelle Haro Unavailable Allergies No known active allergies Medications buprenorphine (Butrans) 20 MCG/HR Place 1 patch on the skin 1 (one) time per week. Active aspirin 81 MG EC tablet Take 81 mg by mouth in the morning. Active amLODIPine-benaz epril (Lotrel) 2.5-10 MG capsule Take 1 capsule by mouth Daily Active rOPINIRole (Requip) 1 MG tablet Take 1 mg by mouth at bedtime Active celecoxib (CeleBREX) 200 MG capsule Take 200 mg by mouth Daily Active pravastatin (Pravachol) 80 MG tablet Take 80 mg by mouth at bedtime Active omeprazole (PriLOSEC) [address] capsule Take 20 mg by mouth in the morning. Take before meals. Do not crush or chew.. Active Myrbetriq 50 MG 24 hr tablet Take 50 mg by mouth Daily Active divalproex (Depakote ER) 500 MG 24 hr tabletIndication s:Migraine without aura and without status migrainosus, not intractable TAKE 1 TABLET BY MOUTH IN THE MORNING AND 1 TABLET BEFORE BEDTIME. DO NOT CRUSH, CHEW, OR SPLIT 180 tablet 2 Active Additional Information Patient taking differently: 1,000 mg Oral Nightly, Reported on 11/03/2024 pregabalin (Lyrica) 150 MG capsule Take 150 mg by mouth in the morning and 150 mg in the evening and 150 mg before bedtime. Active Vortioxetine HBr (Trintellix) 20 MG tabletIndication s:Major depression, recurrent, chronic Take 20 mg by mouth Daily 90 tablet 5 Active ARIPiprazole (Abilify) 10 MG tabletIndication s:Major depression, recurrent, chronic Take 1 tablet (10 mg) by mouth in the morning. 90 tablet 5 Active traZODone (Desyrel) 100 MG tabletIndication s:Major depression, recurrent, chronic,Insomnia , unspecified type 1-2 tabs at hs as needed 180 tablet 5 Active amantadine (Symmetrel) 100 MG capsuleIndicatio ns:Tremor TAKE 1 CAPSULE (100 MG) BY MOUTH IN THE MORNING AND BEFORE BEDTIME 180 capsule 1 5 Active tiZANidine (Zanaflex) 4 MG tabletIndication s:Myalgia Take 1 tablet (4 mg) by mouth in the morning and 1 tablet (4 mg) in the evening and 1 tablet (4 mg) before bedtime. 90 tablet 2 5 03/28/20 25 Active Active Problems Problem Noted Date Diagnosed Date Major depression, recurrent, chronic 12/12/2022 Insomnia 12/12/2022 Hypersomnia 02/19/2021 Circadian rhythm sleep disorder, unspecified typ e 02/19/2021 PANCHITO (obstructive sleep apnea) 12/05/2020 Degenerative disc disease, lumbar 10/31/2020 Assessment & Plan (12/06/2023 7:49 PM EDT): *05/11/2023 Precious Santos MRI lumbar spine from 2012 revealed a central disc protrusion at L4-L5 with mild central canal stenosis and inferior foraminal narrowing L>R with shallow central dis displacement of L3-L4 level. MRI lumbar spine 11/27/20 revealed moderate marked foramen narrowing to L3-L4 and L4-L5 due to degenerative disc disease and facet arthropathy. There was a small left paracentral disc protrusion contacting the descending left L5 nerve roots. He has seen a surgeon in the past and was advised not to have surgery. He has had improvement with medrol dose rosaura previously. Will consider updating lumbar spine MRI pending course, although he prefers to hold off for now. Back pain 11/02/2019 Assessment & Plan (12/06/2023 7:46 PM EDT): *05/11/2023 Precious Santos Patient has persistent back pain. He notes that he has had this for years . He has previously seen pain management and has received multiple types of injections over the course of 8 or so years and notes they lasted for a month and so he stopped following up with them. Back pain persists at baseline. Paresthesia 11/02/2019 Assessment & Plan (12/06/2023 7:48 PM EDT): *11/01/2019 Michelle Haro EMG of the bilateral lower extremities 03/2019 was normal. Migraine 11/23/2017 Assessment & Plan (12/06/2023 7:40 PM EDT): *07/05/2023 Precious Santos Patient previously experiencing increase in headaches, which he attributed to stopping his Butrans patch due to cost from another provider. He continues on Depakote. Trileptal was ineffective. PCP is monitoring labs closely. He continues with headaches periodically but has not been having many migraines. Myalgia 11/23/2017 Muscle spasm 11/23/2017 Assessment & Plan (12/06/2023 7:42 PM EDT): *07/05/2023 Precious Santos Patients receives medical massages monthly and is taking Zanaflex three times daily. Winter months are triggers for his muscle spasms. He has relief with zanaflex and heat therapy. He was off zanaflex recently due to COVID infection and has since resumed 1 tablet at night. Tension headache 11/23/2017 Neck pain 11/23/2017 Assessment & Plan (12/06/2023 7:44 PM EDT): *02/01/2023 Precious Santos MRI C spine 12/2012 showed shallow disc displacements at C3-4, C5-6, and C6-7. No significant central canal stenosis. Neck pain with DDD and muscle spasms causing tension headaches that transition into migraines. Symptoms are constant and have been chronic and treated with Zanaflex and celebrex. He declined updating cervical spine MRI. Trigger injections help but benefits are not lasting. Encounters Date Type Department Care Team Description 02/01/2025 Refill [facility] [address] [place] [phone] Lilliam Dominguez, CHAIRMAN & CEO-SALESPERSON MEATS Major depression, recurrent, chronic ; Insomnia, unspecified type 12/28/2024 Telephone [address] [facility] [address] [place] [address] Jennifer Jiang MA 12/19/2024 Refill [place] [address] [place] [phone] Precious Santos PA Tremor (Primary Dx) 12/18/2024 10:40 AM EDT Office Visit [facility] [address] [address] Michelle Haro PA Migraine without aura and without status migrainosus, not intractable (Primary Dx); Myalgia; Neck pain; Tremor 12/18/2024 Bamboo flowsheet [facility] [address] [facility] [address] [place] [address] Michelle Haro PA from Last 3 Months Family History Medical History Relation Name Comments Cancer Brother 1 Diabetes Brother 1 Hypertension Brother 1 Arthritis Father Hypertension Father Breast cancer Mother Diabetes Mother Hypertension Mother Breast cancer Sister 1 (2) Relation Name Status Comments Brother 1 Brother 2 (2) Alive Father Alive Mother Sister 1 (2) Sister 2 (2) Alive Son (4) Alive Social History Tobacco Use Types Packs/Day Years Used Date Smoking Tobacco: Never Smokeless Tobacco: Never Tobacco Cessation:Counseling Given: Not Answered Alcohol Use Standard Drinks/Week Comments Not Currently 0 (1 standard drink = 0.6 oz pure alcohol) Caffeine: 1-2 cups/day coffee PHQ-2 Answer Date Recorded Patient Health Questionnaire-2 Score 1 07/07/2024 Education Answer Date Recorded What is the [...] file Not on file Not on file Last Filed Vital Signs Vital Sign Reading Time Taken Comments Blood Pressure 128/82 12/18/2024 10:46 AM EDT Pulse 76 12/18/2024 10:46 AM EDT Temperature - - Respiratory Rate 16 08/30/2024 10:25 AM EST Oxygen Saturation 95% 12/18/2024 10:46 AM EDT Inhaled Oxygen Concentration - - Weight 95.3 kg (210 lb) 12/18/2024 10:46 AM EDT Height 182.9 cm (6') 12/18/2024 10:46 AM EDT Body Mass Index 28.48 12/18/2024 10:46 AM EDT Plan of Treatment Upcoming Encounters Date Type Department Care Team (Late st Contact Info) Description 05/18/2025 9:00 AM EDT Office Visit [facility] [address] [place] [address] Radha-Lilliam Acevedo, CHAIRMAN & CEO-SALESPERSON MEATS [address] [place] [address] Health Maintenance Due Date Last Done Comments CT Colonography 1958 FIT-DNA 1958 FIT 1958 FOBT 1960 Sigmoidoscopy 1960 Pneumococcal Vaccine: 65+ Ye ars (1 of 1 - PCV) 01/07/2008 Influenza Vaccine (#1) 2025 4, 07/14/2022, 05/10/2020, Additional history exists Colonoscopy 01/25/2034 01/26/2024 Colorectal Cancer Screening 01/25/2034 [place] [address] [employer] MEDICARE ADVANTAGE [facility] MEDICARE Care Teams Felter Tennis Balls Relationship Specialty Start Date End Date Sammy Aguilera DO PCP - General Internal Medicine 01/08/23 Lilliam Dominguez APRN-SALESPERSON MEATS [address] [facility] [address] [place] [address] Nurse Practitioner Psychiatry 08/17/24 Michelle Haro PA [address] [facility] [address] [place] [address] Physician Captain Fire Prevention Bureau Neurology 08/30/24
--- OUTSIDE RECORDS SUMMARY | 2025-02-28 08:39 | XMS_ITS | Encounter Summary ---
Author Organization [facility] Address [address] [place], [place] [id number] Care Team Providers Care Cad Designer Drafter Name Role Phone Sammy Aguilera DO Primary Care Provider Source Comments In the event this information is protected by the Federal Confidentiality of Alcohol and Drug AbusePatient Records regulations: The Federal rules restrict any use of the information to criminally investigate or prosecute any alcohol or drug abuse patient.[facility] Encounter Details Date Type Department Care Team (Latest Contact Info) Description 01/25/2020 H&P External-NonCCF Provider, External, DANA Do not enter address information under generic External Provider. Social History Tobacco Use Types Packs/Day Years Used Date Smoking Tobacco: Never Smokeless Tobacco: Never Alcohol Use Standard Drinks/Week Comments Not Asked 0 (1 standard drink = 0.6 oz pur e alcohol) Sex and Gender Information Value Date Recorded Sex Assigned at Not on file Legal Sex Male 10:15 AM EST Gender Identity Not on file Sexual Orientation Not on file COVID-19 Exposure Response Date Recorded In the last month, have you been in contact with someone who was confirmed or suspected to have Coronavirus / COVID-19? No / Unsure 01/22/2020 2:03 PM EDT documented as of this encounter Plan of Treatment Not on file documented as of this encounter Visit Diagnoses Not on filedocumented in this encounter Care Teams Cad Designer Drafter Relationship Specialty Start Date End Date Sammy Aguilera DO [address] [place] [address] PCP - General Internal Medicine 01/22/20 documented as of this encounter
--- OUTSIDE RECORDS SUMMARY | 2025-02-28 08:39 | XMS_ITS | Clinical Summary ---
Author Organization [facility] Address [address] [place] [id number] Care Team Providers Care Warehouse Incentive Selector Name Role Phone Sammy Aguilera Primary Care Provider [phone] Allergies No known active allergies Medications quetiapine (SEROQUEL) 100 mg tablet Take 100 mg by mouth daily at bedtime. Active LORazepam (ATIVAN) 0.5 mg Tab Take 0.5 mg by mouth daily at bedtime. Active modafinil (PROVIGIL) 100 mg tablet Take 100 mg by mouth once daily. Active venlafaxine XR (EFFEXOR XR) 75 mg 24 hr capsule Take 75 mg by mouth once daily. Active traZODONE 100 mg tablet Take 200 mg by mouth daily at bedtime. Active pregabalin (LYRICA) 100 mg capsule Take 150 mg by mouth three times daily. Active tramadol-acetam inophen 37.5-325 mg per tablet Take 1 tablet by mouth every 6 hours as needed. Active ropinirole (REQUIP) 1 mg tablet Take 1 mg by mouth daily at bedtime. 11/03/2019 Active esomeprazole (NEXIUM) 40 mg capsule Take 40 mg by mouth once daily. Active amLODIPine (NORVASC) 10 mg tablet Take 10 mg by mouth once daily. Active buprenorphine (BUTRANS) 10 mcg/hour PTWK Apply 1 Patch as directed. Every week Active buprenorphine HCL (BELBUCA) [address] 150 mcg between cheek and gum q 12 HR. 10/17/2019 Active celecoxib (CELEBREX) 200 mg capsule Take 200 mg by mouth once daily. 08/04/2018 Active pravastatin (PRAVACHOL) 80 mg tablet Take 80 mg by mouth daily at bedtime. 12/01/2019 Active TRINTELLIX 20 mg tab 01/28/2020 Active aspirin, enteric coated (ASPIRIN, ENTERIC COATED) 81 mg EC tablet Take 81 mg by mouth once daily. Active amLODIPine-Sari zepril (LOTREL) 10-40 mg per capsule Take 1 capsule by mouth once daily. Active methylphenidate (RITALIN) 20 mg tablet Take 30 mg by mouth once daily. 01/19/[address] (PROTONIX) 40 mg tablet 11/18/2019 Active divalproex ER (DEPAKOTE ER) 500 mg 24 hr tablet Take 500 mg by mouth once daily. 01/17/2020 Active tiZANidine (ZANAFLEX) 4 mg tablet TAKE 1 AND 1/2 TABLETS BY MOUTH 3 TIMES A DAY NEEDED 11/20/2019 Active Active Problems Problem Noted Date Diagnosed Date Peyronie's disease 12/16/2011 Immunizations Immunization Administration Dates Next Due influenza (IIV3) vaccine, tr ivalent (AFLURIA, FLULAVAL, FLUVIRIN, FLUZONE) 05/24/2015 influenza (ccIIV4) vaccine, age 6+ mo, quadrivalent, PF (FLUCELVAX) 08/12/2018 influenza vaccine, unspecified formulation 05/21 tetanus diphtheria pertussis (Tdap) vaccine, age 7+ yr (ADACEL, BOOSTRIX) 05/21/2016 Family History Medical History Relation Comments Arthritis Father Hypertension Father Breast Cancer Mother Diabetes Mother Hypertension Mother Relation Status Comments Father Alive Mother Social History Tobacco Use Types Packs/Day Years Used Date Smoking Tobacco: Former Cigarettes Smokeless Tobacco: Never Alcohol Use Standard Drinks/Week Comments Not Asked 0 (1 standard drink = 0.6 oz pur e alcohol) Area Deprivation Index Answer Date Michael rded National Score (1-100), lower number is lower ri sk Not on file 07/10/2020 State Score (1-10), lower number is lower risk N ot on file 07/10/2020 Data from: https://www.neighborhoodatlas.medicine.[facility].edu/. Last address used for calculation Not on file 07/10/2020 Sex and Gender Information Value Date Recorded Sex Assigned at Not on file Legal Sex Male 10:15 AM EST Gender Identity Not on file Sexual Orientation Not on file Last Filed Vital Signs Vital Sign Reading Time Taken Comments Blood Pressure 127/58 02/23/2020 2:02 PM EDT Pulse 63 02/23/2020 2:02 PM EDT Temperature 36.6 C (97.9 F) 02/23/2020 2:02 PM EDT Respiratory Rate 18 02/23/2020 2:02 PM EDT Oxygen Saturation 97% 02/23/2020 2:02 PM EDT Inhaled Oxygen Concentration - - Weight 97.6 kg (215 lb 3.2 oz) 02/23/2020 2:02 P M EDT Height 182.9 cm (6' 0.01 ) 02/23/2020 2:02 PM ED T Body Mass Index 29.18 02/23/2020 2:02 PM EDT Plan of Treatment Health Maintenance Due Date Last Done Comments Abdominal Aortic Aneurysm Screening 1960 Anxiety Screening 01/07/1976 Depression Screening 01/07/1976 Hepatitis C Screening 01/07/[address] Colonography 2003 Cologuard (FIT-DNA) 2003 Colonoscopy 2003 Colorectal Cancer Screening 2003 Fecal Occult Blood 2003 Prostate Cancer Screening Discussion 2003 Sigmoidoscopy 2003 Pneumococcal Vaccine: 50+ (1 of 1 - PCV) 01/07/2008 Shingrix Vaccine (1 of 2) 01/07/2008 Diabetes Screening 02/22/2023 02/23/2020, 01/31/2020 Advance Directive Discussion 08/02/2024 Influenza Vaccine (#1) 2025 9, 05/21/2017, 05/24/2015 DTaP,Tdap,Td Vaccine (2 - Td or Tdap) 05/21/2026 RSV Vaccine (1 - 1-dose 75+ series) 2033 Procedures Procedure Name Priority Date/Time Associated Diagnosis Comments COMPREHENSIVE METABOLIC PANEL Routine 02/23/2020 1:53 PM EDT Other pancytopenia (HCC) from Last 3 Months or Most Recently Relevant to Health Maintenance Results * (ABNORMAL) COMP METABOLIC PANEL (02/23/2020 1:53 PM EDT) Protein, Total 6.2(L) 6.3 - 8.0 g/dL 02/23/2020 2:35 PM EDT [facility] Albumin 4.2 3.9 - 4.9 g/dL 02/23/2020 2:35 PM EDT [facility] Calcium 9.5 8.5 - 10.2 mg/dL 02/23/2020 2:35 PM EDT [facility] Bilirubin, Total 0.4 0.2 - 1.3 mg/dL 02/23/2020 2:35 PM EDT [facility] Alkaline Phosphatase 57 38 - 113 U/L 02/23/2020 2:35 PM EDT [facility] AST 18 14 - 40 U/L 02/23/2020 2:35 PM EDT [facility] Glucose 129(H) 74 - 99 mg/dL 02/23/2020 2:35 PM EDT [facility] Comment: The [place] Diabetes Association (ADA) provides guidance for cutoff values for fasting glucose and random glucose. The ADA defines fasting as no caloric intake for at least 8 hours. Fasting plasma glucose results between 100 to 125 mg/dL indicate increased risk for diabetes (prediabetes). Fasting plasma glucose results greater than or equal to 126 mg/dL meet the criteria for diagnosis of diabetes. In the absence of unequivocal hyperglycemia, results should be confirmed by repeat testing. In a patient with classic symptoms of hyperglycemia or hyperglycemic crisis, random plasma glucose results greater than or equal to 200 mg/dL meet the criteria for diagnosis of diabetes. Reference: Standards of Medical Care in Diabetes 2016, [place] Diabetes Association. Diabetes Care. 2016.39(Suppl 1). BUN 20 9 - 24 mg/dL 02/23/2020 2:35 PM EDT [facility] Creatinine 1.32(H) 0.73 - 1.22 mg/dL 02/23/2020 2:35 PM EDT [facility] Sodium 140 136 - 144 mmol/L 02/23/2020 2:35 PM EDT [facility] Potassium 4.9 3.7 - 5.1 mmol/L 02/23/2020 2:35 PM EDT [facility] Chloride 103 97 - 105 mmol/L 02/23/2020 2:35 PM EDT [facility] CO2 31(H) 22 - 30 mmol/L 02/23/2020 2:35 PM EDT [facility] Anion Gap 6(L) 9 - 18 mmol/L 02/23/2020 2:35 PM EDT [facility] ALT 22 10 - 54 U/L 02/23/2020 2:35 PM EDT [facility] eGFR- >60 02/23/2020 2:35 PM EDT [facility] eGFR-All Other Races 55 . 02/23/2020 2:35 PM EDT [facility] Comment: eGFR (Estimated GFR) Units of measure: mL/min/1.73 meters squared eGFR is derived from the reexpressed MDRD Study equation using the following parameters: serum creatinine, age, gender and race. The creatinine assay has been calibrated to be traceable to IDMS. An eGFR <60 mL/min/1.73m2 for >3 months is consistent with chronic kidney disease. Refer to KDOQI guidelines for clinical interpretation. In patients with unstable renal function, e.g. those with acute kidney injury, the eGFR may not accurately reflect actual GFR. Blood specimen (specimen) BLOOD SPECIMEN / Unknown 02/23/2020 1:53 PM EDT 02/23/2020 1:55 PM EDT Garrett Latif MD LABORATORY Final Result [id number] from Last 3 Months or Most Recently Relevant to Health Maintenance Insurance [facility] [employer] PPO MEDICARE Care Teams Warehouse Incentive Selector Relationship Specialty Start Date End Date Sammy Aguilera DO [address] [place] [address] PCP - General Internal Medicine 01/22/20
--- OUTSIDE RECORDS SUMMARY | 2025-02-28 08:39 | XMS_ITS | Encounter Summary ---
Author Organization [facility] Address [address] [facility] [place] [address] Care Team Providers Care Litigation Legal Secretary Name Role Phone Sammy Aguilera Primary Care Provider [phone] Lilliam Dominguez APPLIANCE TECHNICIAN-HIGH SCHOOL FRENCH TEACHER Unavailable Lilliam Dominguez APPLIANCE TECHNICIAN-HIGH SCHOOL FRENCH TEACHER Unavailable Michelle Haro Unavailable Reason for Visit * Reason Comments Med Refill Encounter Details Date Type Department Care Team (Late st Contact Info) Description 03/16/2023 Refill [facility] [address] [place] [phone] Lilliam Dominguez, APPLIANCE TECHNICIAN-HIGH SCHOOL FRENCH TEACHER [address] [place] [address] Major depressive disorder, recurrent, unspecified Social History Tobacco Use Types Packs/Day Years Used Date Smoking Tobacco: Never Smokeless Tobacco: Never Alcohol Use Standard Drinks/Week Comments Not Currently 0 (1 standard drink = 0.6 oz pure alcohol) Caffeine: 1-2 cups/day coffee PHQ-2 Answer Date Recorded Patient Health Questionnaire-2 Score 1 01/22/2023 Education Answer Date Recorded What is the [...] on file documented as of this encounter Plan of Treatment Upcoming Encounters Date Type Department Care Team (Late st Contact Info) Description 05/18/2025 9:00 AM EDT Office Visit [facility] [address] [place] [phone] Lilliam Dominguez, APPLIANCE TECHNICIAN-HIGH SCHOOL FRENCH TEACHER [address] [facility] [address] [place] [address] documented as of this encounter Visit Diagnoses Diagnosis Major depressive disorder, recurrent, unspecified documented in this encounter Care Teams Litigation Legal Secretary Relationship Specialty Start Date End Date Sammy Aguilera DO PCP - General Internal Medicine 01/08/23 Lilliam Dominguez, APPLIANCE TECHNICIAN-HIGH SCHOOL FRENCH TEACHER [address] [facility] [address] [place] [address] [facility] 03/02/23 Lilliam Dominguez, APPLIANCE TECHNICIAN-HIGH SCHOOL FRENCH TEACHER [address] [facility] [address] [place] [address] Nurse Practitioner Psychiatry 08/17/24 Michelle Haro PA [address] [facility] [address] [place] [address] Physician Bottle Label Inspector Neurology 08/30/24 documented as of this encounter
--- OUTSIDE RECORDS SUMMARY | 2025-02-28 08:39 | XMS_ITS | Encounter Summary ---
Author Organization [facility] Address [address] [place] [address] Care Team Providers Care Therapeutic Recreation Director Name Role Phone WillySammy Primary Care Provider [phone] Lilliam Dominguez PERSONAL ASSISTANT-PORTFOLIO ACCOUNTANT Unavailable Lilliam Dominguez PERSONAL ASSISTANT-PORTFOLIO ACCOUNTANT Unavailable Michelle Haro Unavailable Reason for Visit * Reason Comments Med Refill Encounter Details Date Type Department Care Team (Late st Contact Info) Description 08/27/2023 Refill [facility] [address] [facility] 160 [place] [phone] Lilliam Dominguez, PERSONAL ASSISTANT-PORTFOLIO ACCOUNTANT [address] [facility] [address] [place] [address] Major depression, recurrent, chronic ; Insomnia, unspecified [...] [facility] [address] [place] [phone] Lilliam Dominguez, PERSONAL ASSISTANT-PORTFOLIO ACCOUNTANT [address] [facility] [address] [place] [address] documented as of this encounter Visit Diagnoses Diagnosis Major depression, recurrent, chronic Insomnia, unspecified type documented in this encounter Care Teams Therapeutic Recreation Director Relationship Specialty Start Date End Date Sammy Aguilera DO PCP - General Internal Medicine 01/08/23 Lilliam Dominguez, PERSONAL ASSISTANT-PORTFOLIO ACCOUNTANT [address] [facility] 160 [place] [address] PCP - [place] [employer] 03/02/23 Lilliam Dominguez, PERSONAL ASSISTANT-PORTFOLIO ACCOUNTANT [address] [facility] [address] [place] [address] Nurse Practitioner Psychiatry 08/17/24 Michelle Haro PA [address] [facility] [address] [place] [address] Physician Spray Gun Repairer Neurology 08/30/24 documented as of this encounter
--- OUTSIDE RECORDS SUMMARY | 2025-02-28 08:39 | XMS_ITS | Clinical Summary ---
Author Organization [employer] [facility] [employer] [facility] Address [id number] [address] [place] [address] Care Team Providers Care It Help Desk Manager Name Role Phone Unavailable Primary Care Provider Unavailabl e Allergies Active Allergy Reactions Criticality Noted Date Comments No Known Drug Allergies 02/22/2017 Medications * This document contains information received from the source organization and may not represent a complete record from that organization. methylphenidate (RITALIN) 20 mg tablet Take 20 mg by mouth 2 (two) times a day. 1.5 tablets twice a day Active traZODone (DESYREL) 100 mg tablet Take 300 mg by mouth once daily at bedtime. Active buprenorphine (BUTRANS) 20 mcg/hour patch weekly Place 1 patch on the skin once a week. Active MELOXICAM ORAL Take by mouth. Active DIVALPROEX SODIUM (DEPAKOTE ORAL) Take by mouth. Active amlodipine-saeid zepril (LOTREL) 5-40 mg per capsule Take 1 capsule by mouth daily. Active clotrimazole-be tamethasone (LOTRISONE) lotion Apply 1 application topically 2 (two) times a day. Active ibuprofen (ADVIL,MOTRIN) 800 mg tablet Take 800 mg by mouth 3 (three) times a day. Active pregabalin (LYRICA) 150 mg capsule Take 150 mg by mouth 3 (three) times a day. Active pravastatin (PRAVACHOL) 20 mg tablet Take 20 mg by mouth daily. Active aspirin 81 mg Take 81 mg by mouth daily. Active rOPINIRole (REQUIP) 1 mg tablet Take 1 mg by mouth once daily at bedtime. Active vortioxetine (TRINTELLIX) 10 mg tablet Take 1 tablet (10 mg total) by mouth daily. 90 tablet 0 7 Active Social History Tobacco Use Types Packs/Day Years Used Date Smoking Tobacco: Never Assessed Childcare Answer Date Recorded Childcare Unknown 01/11/2019 Employment Answer Date Recorded Employment Unknown 01/11/2019 Sex and Gender Information Value Date Recorded Sex Assigned at Not on file Legal Sex Male 12:05 PM EDT Gender Identity Not on file Sexual Orientation Not on file Last Filed Vital Signs Vital Sign Reading Time Taken Comments Blood Pressure 142/86 04/06/2013 8:04 AM EDT Pulse 68 04/06/2013 8:04 AM EDT Temperature - - Respiratory Rate - - Oxygen Saturation - - Inhaled Oxygen Concentration - - Weight - - Height - - Body Mass Index - - Plan of Treatment Health Maintenance Due Date Last Done Comments Depression Screening 1970 Tobacco Screening 1970 Adult BMI Screening 01/07/1976 DTaP,Tdap and Td Vaccines (1 - Tdap) 1977 Zoster (Shingles) Vaccine (1 of 2) 01/07/2008 Fall Risk Screening 2023 Influenza Vaccine 04/02/2025 Medical Devices Not on file
--- OUTSIDE RECORDS SUMMARY | 2025-02-28 08:39 | XMS_ITS | Encounter Summary ---
Author Organization [facility] Address [address] [place] [address] Care Team Providers Care Director Pharmacology Name Role Phone Sammy Aguilera Primary Care Provider [phone] Source Comments In the event this information is protected by the Federal Confidentiality of Alcohol and Drug AbusePatient Records regulations: The Federal rules restrict any use of the information to criminally investigate or prosecute any alcohol or drug abuse patient.[facility] Encounter Details Date Type Department Care Team (Late st Contact Info) Description 01/29/2020 Abstract Hematology/Oncology [address] [place] [address] Garrett Latif MD [address] [place] [id number] Social History Tobacco Use Types Packs/Day Years [...] have Coronavirus / COVID-19? No / Unsure 01/31/2020 2:35 PM EDT documented as of this encounter Plan of Treatment Not on file documented as of this encounter Visit Diagnoses Not on filedocumented in this encounter Care Teams Director Pharmacology Relationship Specialty Start Date End Date Sammy Aguilera DO [address] [place] [address] PCP - General Internal Medicine 01/22/20 documented as of this encounter
--- OUTSIDE RECORDS SUMMARY | 2025-02-28 08:39 | XMS_ITS | Encounter Summary ---
Author Organization [facility] Address [address] [place] [address] Care Team Providers Care Comfort Filler Name Role Phone Sammy Aguilera DO Primary Care Provider [phone] Source Comments In the event this information is protected by the Federal Confidentiality of Alcohol and Drug AbusePatient Records regulations: The Federal rules restrict any use of the information to criminally investigate or prosecute any alcohol or drug abuse patient.[facility] Encounter Details Date Type Department Care Team (Latest Contact Info) Description 01/29/2020 H&P External-NonCCF Provider, External, DANA Do not [...] on filedocumented in this encounter Care Teams Comfort Filler Relationship Specialty Start Date End Date Sammy Aguilera DO [address] [place] [id number] PCP - General Internal Medicine 01/22/20 documented as of this encounter
--- OUTSIDE RECORDS SUMMARY | 2025-02-28 08:39 | XMS_ITS | Encounter Summary ---
Author Organization [facility] Address [address] [place] [address] Care Team Providers Care Assemblyman Or Woman Name Role Phone WillySammy Nathan AGUILERA Primary Care Provider [phone] Lilliam Dominguez COATING MIXER SUPERVISOR-BUCKET PUSHER Unavailable Michelle Haro Unavailable Reason for Visit * Reason Comments Med Refill Encounter Details Date Type Department Care Team (Late st Contact Info) Description 01/27/2024 Refill [facility] [address] [facility] [address] [place] [phone] Lilliam Dominguez, COATING MIXER SUPERVISOR-BUCKET PUSHER [address] [facility] 160 [place] [address] Major depression, recurrent, chronic ; Insomnia, unspecified type Social History Tobacco Use Types Packs/Day Years Used Date Smoking Tobacco: Never Smokeless Tobacco: Never Alcohol Use Standard Drinks/Week Comments Not Currently 0 (1 standard drink = 0.6 oz pure alcohol) Caffeine: 1-2 cups/day coffee PHQ-2 Answer Date Recorded Patient Health Questionnaire-2 Score 2 01/27/2024 Education Answer Date Recorded What is the [...] Little interest or pleasure in doing things More than half the days 01/27/2024 10:22 AM EDT Jasmin Spain LPN Feeling down, depressed, or hopeless Not at all 01/27/2024 10:22 AM EDT Jasmin Spain LPN Patient Health Questionnaire-2 Score 2 01/27/2024 10:22 AM EDT Jasmin Spain LPN documented as of this encounter Plan of Treatment Upcoming Encounters Date Type Department Care Team (Late st Contact Info) Description 05/18/2025 9:00 AM EDT Office Visit [facility] [address] [place] [phone] Lilliam Dominguez APRN-BUCKET PUSHER [address] [facility] [address] [place] [address] documented as of this encounter Visit Diagnoses Diagnosis Major depression, recurrent, chronic Insomnia, unspecified type documented in this encounter Care Teams Assemblyman Or Woman Relationship Specialty Start Date End Date Sammy Aguilera DO PCP - General Internal Medicine 01/08/23 Lilliam Dominguez APRN-BUCKET PUSHER [address] [facility] [address] [place] [address] Nurse Practitioner Psychiatry 08/17/24 Michelle Haro PA [address] [facility] [address] [place] [address] Physician Sock Mender Neurology 08/30/24 documented as of this encounter
--- OUTSIDE RECORDS SUMMARY | 2025-02-28 08:39 | XMS_ITS | Encounter Summary ---
Author Organization [facility] Address [address] [facility] [place] [address] Care Team Providers Care Multifocal Lens Assembler Name Role Phone Sammy Aguilera Primary Care Provider [phone] Lilliam Dominguez STUCCO LABORER-GENERAL ASSEMBLER INSTALLER Unavailable Michelle Haro Unavailable Reason for Visit * Reason Comments Med Refill Encounter Details Date Type Department Care Team (Late st Contact Info) Description 10/01/2024 Refill [facility] [address] [place] [address] Lilliam Dominguez, STUCCO LABORER-GENERAL ASSEMBLER INSTALLER [address] [place] [address] Major depression, recurrent, chronic ; Insomnia, unspecified [...] [address] [place] [phone] Lilliam Dominguez, STUCCO LABORER-GENERAL ASSEMBLER INSTALLER [address] [facility] 160 [place] [address] documented as of this encounter Visit Diagnoses Diagnosis Major depression, recurrent, chronic Insomnia, unspecified type documented in this encounter Care Teams Multifocal Lens Assembler Relationship Specialty Start Date End Date Sammy Aguilera DO PCP - General Internal Medicine 01/08/23 Lilliam Dominguez, STUCCO LABORER-GENERAL ASSEMBLER INSTALLER [address] [facility] [address] [place] [address] Nurse Practitioner Psychiatry 08/17/24 Michelle Haro PA [address] [facility] [address] [place] [address] Physician It Programmer Analyst Neurology 08/30/24 documented as of this encounter
--- OUTSIDE RECORDS SUMMARY | 2025-02-28 08:39 | XMS_ITS | Encounter Summary ---
Author Organization [facility] Address [address] [facility] [place] [address] Care Team Providers Care Business Development Consultant Name Role Phone Sammy Aguilera Primary Care Provider [phone] Lilliam Dominguez METALLURGICAL ANALYST-BOARD WINDER Unavailable Michelle Haro Unavailable Reason for Visit * Reason Comments Med Refill Encounter Details Date Type Department Care Team (Late st Contact Info) Description 02/01/2025 Refill [facility] [address] [place] [address] Lilliam Dominguez, METALLURGICAL ANALYST-BOARD WINDER [address] [place] [address] Major depression, recurrent, chronic ; Insomnia, unspecified [...] [address] [place] [phone] Lilliam Dominguez, METALLURGICAL ANALYST-BOARD WINDER [address] [facility] 160 [place] [address] documented as of this encounter Visit Diagnoses Diagnosis Major depression, recurrent, chronic Insomnia, unspecified type documented in this encounter Care Teams Business Development Consultant Relationship Specialty Start Date End Date Sammy Aguilera DO PCP - General Internal Medicine 01/08/23 Lilliam Dominguez, METALLURGICAL ANALYST-BOARD WINDER [address] [facility] [address] [place] [address] Nurse Practitioner Psychiatry 08/17/24 Michelle Haro PA [address] [facility] 160 [place] [address] Physician Hand Flesher Neurology 08/30/24 documented as of this encounter
[2025-02-28 09:17] LABS: Hematocrit 42.8 % (42.0-54.0); Hemoglobin 14.2 g/dL (14.0-18.0); Immature Granulocytes Abs Auto 0.01 10^3/uL (0.00-0.03); Immature Granulocytes Pct Auto 0.3 % (0.0-0.5); Lymphocytes Absolute Auto 0.9 10^3/uL (1.2-3.8); Mean Corpuscular HGB Conc 33.2 g/dL (29.9-35.2); Mean Corpuscular Hemoglobin 30.0 pg (25.9-34.0); Mean Corpuscular Volume 90.5 fL (80.0-94.0); Platelet Count 123 10^3/uL (150-450); Red Blood Count 4.73 10^6/uL (4.70-6.10); White Blood Count 3.6 10^3/uL (4.0-11.0)
[2025-02-28 10:10] LABS: Alanine Aminotransferase 27 U/L (16-63); Albumin Globulin Ratio 1.2; Albumin Level 3.9 g/dL (3.4-5.0); Alkaline Phosphatase 90 U/L (46-116); Anion Gap 12.9; Aspartate Amino Transferase 14 U/L (15-37); Blood Urea Nitrogen 35.0 mg/dL (7.0-18.0); Calcium 9.2 mg/dL (8.5-10.1); Carbon Dioxide 31.2 mmol/L (21.0-32.0); Chloride 107 mmol/L (98-107); Cholesterol 149 mg/dL (<=200); Estimated GFR (African America >60 (>=60 mL/min/1.73m^2); Estimated GFR (Non-African Ame >60 (>=60 mL/min/1.73m^2); Globulin 3.2 g/dL; Glucose 89 mg/dL (74-106); HDL Cholesterol 71 mg/dL (40-60); Potassium 4.1 mmol/L (3.5-5.1); Sodium 147 mmol/L (136-145); Total Protein 7.1 g/dL (6.4-8.2); Triglycerides 45 mg/dL (<=150); VLDL CHOLESTEROL 9.0 mg/dL
[2025-02-28 10:33] LABS: Ferritin 26.0 ng/mL (26.0-388.0); Folate 33.20 ng/mL (8.60-58.90)
[2025-03-01 07:12] LABS: Vitamin B12 651 pg/mL (232-1245)
== END 2025-02-28 08:34 | disposition home or self-care (01) ==
LOC: LAB 08:35
PROVIDERS: PCP Internal Medicine; Visit Provider Internal Medicine
DX: Z00.00 Encounter for general adult medical examination without abnormal findings (principal); D64.9 Anemia, unspecified
CPT/HCPCS: 36415; 80053; 80061; 82607; 82728; 82746; 85025

== ENCOUNTER 2025-06-13 09:49 | Outpatient (OUT) | payer BC, MEDICARE, SELFPAY ==
--- OUTSIDE RECORDS SUMMARY | 2025-05-31 07:08 | XMS_ITS | Continuity of Care Document ---
Author Organization [facility] Address [address] [place] [address] Phone Care Team Providers Care Business Strategy Manager Name Role Phone Sammy Aguilera DO Primary Care Provider Tawny Martinez-C Attending Provider + Sammy Aguilera DO Attending Provider [phone] Care Teams Patient Care Team Team Status: Active Member Role/Relationship Status Dates Sammy Aguilera DO Primary Care Provider Active Visit Care Team Team Status: Inactive Member Role/Relationship Status Dates Sammy Aguilera DO Primary Care Provider Active Start: March 21, 2025 End: March 21, 2025ROSE Canas-CAttending ProviderActiveStart: March 21, 2025 End: March 21, 2025 Patient Care Team Team Status: Inactive Member Role/Relationship Status Dates Sammy Aguilera DO Primary Care Provider Active Start: May 31, 2025 End: May 31nini Aguilera DOAttending ProviderActiveStart: May 31, 2025 End: May 31, 2025 Chief Complaint and Reason for Visit Chief Complaint Admit Date 2-3 month follow up March 21, 2025 2: 02pm 3 month f/u May 31, 2025 1 1:15am Reason for Visit Admit Date DDD (degenerative disc disease), lumbar March 21, 2025 2:02pm Low back pain March 21, 2025 2: 02pm Migraine without aura and wi thout status migrainosus, not intractable March 21, 2025 2:02pm Moderate obstructive sleep apnea March 21, 2025 2:02pm Neck pain March 21, 2025 2: 02pm Tremor March 21, 2025 2: 02pm Anemia May 31, 2025 1 1:15am Constipation May 31, 2025 1 1:15am Gastroesophageal reflux dise ase with esophagitis without hemorrhage May 31, 2025 11:15am High cholesterol May 31, 2025 1 1:15am Hypertension May 31, 2025 1 1:15am Lumbar spondylosis May 31, 2025 1 1:15am Mild episode of recurrent major depressi ve disorder May 31, 2025 11:15am Opiate analgesic use agreement exists Oc tober 2024 11:15am PANCHITO (obstructive sleep apnea) May [id number] 11:15am Prostate cancer May 31, 2025 1 1:15am Low back pain May 31, 2025 1 1:15am Allergies, Adverse Reactions, Alerts Allergen Type Severity Reaction Last Updated Verified Status No Known Allergies Allergy Unknown March 21, 2025 2:45pmYesActive Social History Smoking Status Status Start Date End Date Date of Observa tion Never smoked tobacco (finding) August 12, 2023 11:33am Observation Status Observation Response Date of Response Legal Sex Male (finding) Sex Assigned At [facility] 1959 Family History Relationship Condition Age at Onset Recorded Date/T jovanny father Arthritis Unknown HypertensionUnknownfamily memberDeceasedUnknownmotherMalignant neoplasm of breastUnknownHypertensionUnknownDiabetes mellitusUnknownDeceasedUnknownMalignant neoplasmUnknownsiblingHypertensionUnknownMalignant neoplasmUnknownsisterDeceased UnknownMalignant neoplasmUnknown Problems Active Problems Problem Diagnosis/Recorded Date Onset Date Stat Gastroesophageal reflux dise ase with esophagitis without hemorrhage November 06, 2023 10:36am Unknown Activ e Primary insomnia November 06, 2023 10:36am Unknown Active PANCHITO (obstructive sleep apnea) November 06, 2023 10:36am Unknown Active Migraine without aura and wi thout status migrainosus, not intractable March 25, 2025 8:13pm Unknown Active Nonalcoholic fatty liver disease November 06, 2023 10:36 am Unknown Active Low back pain March 25, 2025 8:14pm Unknown Ac tive Throat cancer November 06, 2023 10:36am Unknown Act berna Moderate obstructive sleep apnea March 25, 2025 8:1 4pm Unknown Active Myalgia February 07, 2025 2:48pm Unknown Active Prostate cancer November 06, 2023 10:36am Unknown A ctive Opiate analgesic use agreement exists August 17 12:38pm Unknown Active High cholesterol November 06, 2023 10:36am Unknown Active Anemia February 20, 2025 12:24pm Unknown Acti ve Wellness examination February 09, 2024 7:24am Unknown Active DDD (degenerative disc disease), lumbar March 25, 2 025 8:14pm Unknown Active Thrombocytopenia November 06, 2023 10:36am Unknown Active Tremor March 25, 2025 8:13pm Unknown Act benra Mild episode of recurrent ma wiliam depressive disorder November 06, 2023 10:36am Unknown Active Neck pain March 25, 2025 8:14pm Unknown Act berna Unexplained weight loss November 01, 2023 10:54pm Unknow n Active Chronic headaches November 06, 2023 10:36am Unknown Active Hypertension November 06, 2023 10:36am Unknown Acti ve Constipation November 16, 2024 11:39am Unknown Act berna Lumbar spondylosis November 06, 2023 10:36am Unknown Active Medications Medication Status Dose Units Route Directions Qty Days Refills S tart Date Stop Date End Date Reason(s) Instructions Adherence Pravastatin 80 mg tablet Discontinued 0 .ROUTE.XFLHDMY492Jojml 2023 8:43pmMarch 2024 12:01pmTAKE 1 TABLET BY MOUTH EVERY DAY IN THE EVENINGBuprenorphine 20 mcg/hour patch weeklyDiscontinued 6NPFBQSWLPHCMGOZU8D as needed for majc7879Zbsro 2023 6:08pmMay 2023 4:11pmSpondylosis of lumbar spine Spondylosis without myelopathy or radiculopathy, lumbar regionBuprenorphine 20 mcg/hour patch ncpjkvUtaxktgrwbyu5AGRSKZMQIZMSWIND5I as needed for blll4227Jys 2023 4:11pmJune 2023 12:59pmSpondylosis of lumbar spine Spondylosis without myelopathy or radiculopathy, lumbar regionBuprenorphine 20 mcg/hour patch jlvducMqtmyhtbtzri1ICSZUKXNXMBUWTBB6N as needed for ujkh1230Wqhh 2023 12:58pmJuly 2023 10:44pmSpondylosis of lumbar spine Spondylosis without myelopathy or radiculopathy, lumbar regionp/u 01/12, start 01/13Buprenorphine 20 mcg/hour patch gwxlbjImrtpgkbxegh6BTVXGOCYRTBBJQZW3Q as needed for svvf3368Weqijv 2023 10:02amSeptember 2023 12:59pm Spondylosis of lumbar spine Spondylosis without myelopathy or radiculopathy, lumbar regionstart 03/21 Buprenorphine 20 mcg/hour patch dbzxkmGaqbrpkppbuf7HAEWCIZYEACYQWLG8O as needed for ndta1292Yuljlcuck 2023 12:59pmOctober 2023 7:36amSpondylosis of lumbar spine Spondylosis without myelopathy or radiculopathy, lumbar regionstart 04/26 Pregabalin 150 mg psjteurJhdcelwaoxgn239KRNYObvzd times hhhts322366Bjccjao 2023 8:48pmJuly 2024 3:18pmSpondylosis of lumbar spine Spondylosis without myelopathy or radiculopathy, lumbar regionCelecoxib 200 mg capsuleDiscontinued0.ROUTE.TYAMKLN960Bwmvbrp 2023 7:13amSeptember 2024 7:34amTAKE 1 CAPSULE BY MOUTH EVERY DAY FOR 90 DAYSRopinirole 1 mg tablet Active0.ROUTE.ZFLWVSU910Mbvtpti 2023 9:59pmTAKE 1 TABLET BY MOUTH EVERY DAY Complies with drug therapyBuprenorphine 20 mcg/hour patch weeklyDiscontinued1 EYPKAAJGZNAHIWYL0T as needed for hxqu4944Crsbgwa 2023 7:35amNovember 2023 10:40amSpondylosis of lumbar spine Spondylosis without myelopathy or radiculopathy, lumbar regionp/u 05/24, start 05/26Buprenorphine 20 mcg/hour patch hzgytjDbnxqsmthdoa9NTVTPVEQBUIRVZOI2C as needed for snpg6103Gxezhqgu 2023 10:39amDecember 2023 9:14am Spondylosis of lumbar spine Spondylosis without myelopathy or radiculopathy, lumbar regionp/u 06/23, start 06/25Buprenorphine 20 mcg/hour patch fvyokzWesdgzonebno0BOSOVSVEYFDVWTTT1E as needed for wwtr3767Gpoysudq 2023 9:14amFebruary 2024 2:06pm Spondylosis of lumbar spine Spondylosis without myelopathy or radiculopathy, lumbar regionp/u 07/23, start 07/25Omeprazole 20 mg capsule,delayed release(DR/EC)Active0.ROUTE.SVCEXLJ698 August 06, 2024 4:44pmTAKE 1 CAPSULE BY MOUTH DAILYComplies with drug therapy Buprenorphine 20 mcg/hour patch pzqyhmSvkhrieorejw4SIGWCVONDQFSZEFQ1E as needed for kqdw0074Leawgisg 2024 2:06pmMarch 2024 9:38amSpondylosis of lumbar spine Spondylosis without myelopathy or radiculopathy, lumbar regionBuprenorphine 20 mcg/hour patch mrspzeAugxliuxpmze5IWVGNFKJNQSJBGYR6F as needed for xvnh0063Cvacp 2024 9:38amApril 2024 9:20amSpondylosis of lumbar spine Spondylosis without myelopathy or radiculopathy, lumbar regionp/u 10/06, start 10/08 Amlodipine-Benazepril 2.5-10 mg capsuleActive0.ROUTE.2024 7:14amTAKE 1 CAPSULE BY MOUTH ONCE A DAY DIRECTED FOR 90 DAYSComplies with drug therapyPravastatin 80 mg tabletActive0.ROUTE.2024 12:01pmTAKE 1 TABLET BY MOUTH EVERY DAY IN THE EVENINGComplies with drug therapy Buprenorphine 20 mcg/hour patch vdnoyaNaqoudwmedyb5QMKRQFWWEVORIWUV7Y as needed for bixm3823Pykjg 2024 9:18amMay 2024 7:43amSpondylosis of lumbar spine Spondylosis without myelopathy or radiculopathy, lumbar regionBuprenorphine 20 mcg/hour patch klfkmlQpttwtidzmbv8GJVLZYRINIRYEOHA7C as needed for vtjj2858Isc 2024 7:42amJune 2024 5:51pmSpondylosis of lumbar spine Spondylosis without myelopathy or radiculopathy, lumbar regionp/u 12/06, start 12/08 Buprenorphine 20 mcg/hour patch bresgjWbjxksoavocn1PEXYJZDUZYIUZILO6W as needed for vlqo1960Jqzu 2024 5:51pmJuly 2024 11:04pmSpondylosis of lumbar spine Spondylosis without myelopathy or radiculopathy, lumbar regionPregabalin 150 mg jpnrzzrMhrgtg324LLSGPgcvh times okexs351662Iyxc 2024 3:17pmSpondylosis of lumbar spine Spondylosis without myelopathy or radiculopathy, lumbar regionComplies with drug therapyTizanidine 4 mg mdjvepKotjloyhkhcv7OWRPYduxo times dqkrp0362Bagg 2024 2:46pmAugust 2024 1:11pmMuscle pain Myalgia, unspecified site1 and 1/2 tablet as needed Orally Three times a day Buprenorphine 20 mcg/hour patch rlxrjtStoowaffaphl3XCFRBEIMUIVPYZGA1U as needed for fzrc2087Xint 2024 11:03pmSeptember 2024 11:19amSpondylosis of lumbar spine Spondylosis without myelopathy or radiculopathy, lumbar regionPolysaccharide Iron Complex (Ferrex 150) 150 mg iron schaerxZrduiqvisbgo299VASZCqwzl01652Ltqa 2024 12:00amAugust 2024 3:08pmPolysaccharide Iron Complex (Ferrex 150) 150 mg iron kfibljhBxyxet678KPVDZosag15986Eluypo 2024 3:08pmComplies with drug therapyTizanidine 4 mg bowbcnOdxlgq2WXZASzzss times frynk5500Atshsp 2024 1:11pmMuscle pain Myalgia, unspecified site1 and 1/2 tablet as needed Orally Three times a day Complies with drug therapyBuprenorphine 20 mcg/hour patch weeklyDiscontinued1 XLNFOPQIQDSSKQNY5V as needed for iaem4198Xpwpulicm 2024 11:19amSeptember 2024 10:15amSpondylosis of lumbar spine Spondylosis without myelopathy or radiculopathy, lumbar regionCelecoxib 200 mg kiwphhhQwqtyv497EBGGJlbnx88249Ggicqytjp 2024 7:34amComplies with drug therapyBuprenorphine 20 mcg/hour patch fahbmgTkomegavechy4ORVGVOQFCAYXBLRH5E as needed for witr8547Uyjmiespd 2024 10:14amOctober 2024 11:47am Spondylosis of lumbar spine Spondylosis without myelopathy or radiculopathy, lumbar regionAmlodipine- Benazepril 2.5-10 mg vxulqivXusjcaozpfro2LUNRFIgqvyJnvjy 2023 12:00amMarch 2024 7:14amAspirin 81 mg tablet,delayed release (DR/EC)Xzdjhu03WQRTVgfde Rubi 2023 12:00amComplies with drug therapyBuprenorphine Hcl (Belbuca) 150 mcg yoaxUmkiqhvouzsr923XPYONKQGRKiodq 12 hoursApr2023 12:00amApril 2023 6:07pmCelecoxib 200 mg pettiqgKenxuifoimsw915EQECLxkwkGfgnu 2023 12:00amOctober 2023 7:13amDivalproex 500 mg tablet extended release 24 hr Lqwbtj7921PQFXDemmhJcdet 2023 12:00amComplies with drug therapyPregabalin 150 mg djxrknmVqmgqijdhmxw510SAGGVnzab times dailyApril 2023 12:00amOctober 2023 8:49pmPantoprazole 40 mg tablet,delayed release (DR/EC)Lrriisfgqcye69 MGPODailyApril 2023 12:00amJuly 2023 10:40amPravastatin 80 mg tablet Xslmzwuiimos23MLEGRspvf eveningApr2023 12:00amApril 2023 8:43pm Methylphenidate Hcl 20 mg knnqcmTwbbxmavgpfh33JNMWFrswe2Unggq 2023 12:00am Brenda 2023 10:40amRopinirole 1 mg fiegxwYmdkywvluald8ZEPZXopemMbtgt 2023 12:00amOctober 2023 9:59pmTizanidine 4 mg ytgdhzYhbnnfekhxxw6GARWTqwnn 2023 12:00amJuly 2024 2:48pm1 and 1/2 tablet as needed Orally Three times a dayTrazodone 100 mg gmurcxFjpoyu237NZOWAorhi at bedtimeApril 2023 12:00amFreeTextSig: take 3 tablet Orally at bedtime; Note: Source Status: Taking; Provider: Willy Christianson( )Complies with drug therapy Vortioxetine 20 mg dhergxRrrckz61NFTRNxgehQzdey 2023 12:00amComplies with drug therapyAmantadine Hcl 100 mg fecvjfcXgazmp788DMGK.QODJuly 2023 12:00amComplies with drug therapyAripiprazole 10 mg ixnnnzMmfwba34GJWTZhldcOjen 2023 12:00amComplies with drug therapyBuprenorphine 20 mcg/hour patch xrggzhGjydcrxsnrwn9TBJZSGOQEBLOMOZP6G as needed for rdkg5533Toad 2023 10:44pmAugust 2023 10:07amSpondylosis of lumbar spine Spondylosis without myelopathy or radiculopathy, lumbar regionp/u 02/10, start 02/12Mirabegron (Myrbetriq) 50 mg tablet extended release 24 hrActiveMGPOAugust 2024 12:00amComplies with drug therapyLidocaine 4 % adhesive patch,gyziagehtTwtopm3HPKWVLXWSQKWXxhvo as needed for neck/back buwm25007Zlrkfe 2024 12:00amLow back pain Neck pain Low back pain, unspecified CervicalgiaApply patch to the posterior neck or low/mid back once daily as needed for pain. Keep in place for no longer than 12 hours in a 24-hour period. Apply to clean, dry, and intact skin. Do not apply to damaged or broken skin.Complies with drug therapyBuprenorphine 20 mcg/hour patch nvcnbeNzxiiemgszyj1XFUEBTYHJNIEGDXC0LCfjaxafy 2023 1:00amFebruary 2023 11:44amBuprenorphine 20 mcg/hour patch pthbzyZlmvmpogwljy5HAYIAKNSGAJAFSU Q7D as needed for itgb7425Fbrvfvig 2023 11:42amMarch 2023 2:36pm Spondylosis of lumbar spine Spondylosis without myelopathy or radiculopathy, lumbar regionBuprenorphine 20 mcg/hour patch crysuyEahiglkszdqe5POLCNUMWEFCFUOHC2I as needed for zcrv8854Ipwyq 2023 2:35pmApril 2023 6:09pmSpondylosis of lumbar spine Spondylosis without myelopathy or radiculopathy, lumbar regionOmeprazole 20 mg capsule,delayed release(DR/EC)Roxgdigqmfmu66PQTBXehwjYvvmp 2023 12:00am October 18, 2023 1:35pmOmeprazole 20 mg capsule,delayed release(DR/EC) Wqyeogjjvsld95AURSPbufv635055Sigif 2023 1:35pmJanuary 2024 4:44pm Buprenorphine 20 mcg/hour patch zicwzrEqppkk2DMMVTCAVJICCWWKQ5K as needed for euub2724Izagtod 2024 11:46amSpondylosis of lumbar spine Spondylosis without myelopathy or radiculopathy, lumbar regionComplies with drug therapy Immunizations Immunization Event Date Not Given Reason Dose Number Broth Mixer Lot Number Reason(s) Given Vaccine Information Statement (VIS) Detail Administration Location [facility], Pediatric Age 5-11 July 142021 COVID-19 Ad26.COV2.S (v2 Ratings)October 07OVID-19 mRNA-1273 (Moderna) July 15OVI- mRNA Bivalent Booster (Playfire)July 14, 2022 Fluzone TIV High-Dose 65YR+May 16, [id number] [facility] Influenza Quadrivalent PF MDCKJanuary 2018influenza, unspecified formulationOctober 2016influenza, unspecified formulationOctober 2018influenza, unspecified formulationNovember 2020influenza, unspecified formulationDecember 2021Quadrivalent InfluenzaDecember 2021 Quadrivalent InfluenzaOctober 2019Tetanus, Diphtheria adult, 5 Lf pres free absOctober 2015Tetanus, Diphtheria, Pertussis (Tdap)May 21, 2016 Trivalent Influenza VaccineOctober 2014Trivalent Influenza VaccineOctober 2018 Vital Signs Vital Reading Result Reference Range Collection Date/Time Height 720 [in_i] March 21, 2025 2:73dxLatgrt34.42 kgAugust 2024 2:38pmHeart Rate59 /min 60-100August 2024 2:38pmRespiratory rate16 /dcp40-93Tkvqoy 2024 2:38pmOxygen saturation by Pulse mfeiefwz64 %95-100Augus2024 2:38pmBP Lohacsxb791 mm[Hg]100-140Augus2024 2:38pmBP Azzxguvpa17 mm[Hg]60-100 March 21, 2025 2:38pmBMI (Body Mass Index)0.3 kg/t3Pplilm 2024 2:38pm Zgfgiz94 [in_i]May 31, 2025 11:68yzYmebdp45.88 kgOctober 2024 11:26amHeart Rate77 /bxk61-580Jeixrov 2024 11:26amRespiratory rate18 /min 12-24October 2024 11:26amOxygen saturation by Pulse nidmbjao60 %95-100 May 31, 2025 11:26amBP Wvocpvaw331 mm[Hg]100-140October 2024 11:26am BP Hypdckxty74 mm[Hg]60-100October 2024 11:26amBMI (Body Mass Index)30.4 kg/f7Jvqwhcj 2024 11:26am Advance Directives Advance Directive Response Recorded Date/ Time Advance Directives No October 11 3:44pm Insurance Providers Guarantor Trenton Holman Address [address] [facility] [address]Dezlfjq Info.Home Phone: Payer Group Member ID Coverage Type Subscriber Relationship to Subscriber Effective Date Expiration Date Loretta DURÁN Id: [id number] L Love-Bartels Id: [id number] [address] [place] [address] [address] [facility] [address] Home Phone: [facility] [id number] A Bartels Id: [id number] [address] [place] [address] [address] [facility] [address] Home Phone: Self Encounters Encounter Location(s) Arrival/Admit Date Discharge/Departure Date Discharge/Departure Disposition Provider(s) Departed Physician/ Provider Office Visit -[facility] [place] March 21, 2025 2:02pm March 21, 2025 3:28pm Discharged to home care or self care (routine discharge) Tawny Martinez , CARLOS A-GYM ATTENDANT-C Departed Physician/ Provider Office Visit -[facility] May 31, 2025 11:15am May 31, 2025 12:07pm Discharged to home care or self care (routine discharge) Sammy Aguilera , DO Recent Diagnosis Onset Date Admit Date DDD (degenerative disc disease), lumbar Unknown March 21, 2025 2:02pm Low back pain Unknown March 21 2:02pm Migraine without aura and wi thout status migrainosus, not intractable Unknown March 21, 2025 2:02pm Moderate obstructive sleep apnea Unknown March 21, 2025 2:02pm Neck pain Unknown March 21 2:02pm Tremor Unknown March 21 2:02pm Anemia Unknown May 31 11:15am Constipation Unknown May 31 11:15am Gastroesophageal reflux dise ase with esophagitis without hemorrhage Unknown May 31, 2025 11:1 5am High cholesterol Unknown May 31, 2 025 11:15am Hypertension Unknown May 31 11:15am Lumbar spondylosis Unknown May 31, 2025 11:15am Mild episode of recurrent ma wiliam depressive disorder Unknown May 31, 2025 11:15am Opiate analgesic use agreement exists Unknown May 31, 2025 11:15am PANCHITO (obstructive sleep apnea) Unknown Oc tober 2024 11:15am Prostate cancer Unknown May 31 11:15am Low back pain Unknown May 31 11:15am Assessments Diagnosis Onset Date Resolution Status Admit Date DDD (degenerative disc disease), lumbar chronicAugust 2024 2:02pmLow back painchronicA2024 2:02pm Migraine without aura and without status migrainosus, not intractablechronic March 21, 2025 2:02pmModerate obstructive sleep apneachronicA2024 2:02pmNeck painchronicA2024 2:02pmTremorchronicAugust 2024 2:02pmAnemiaacuteOctober 2024 11:15amConstipationacuteOctober 2024 11:15amGastroesophageal reflux disease with esophagitis without hemorrhageacute May 31, 2025 11:15amHigh cholesterolacuteOctober 2024 11:15am HypertensionacuteOctober 2024 11:15amLumbar spondylosisacuteOctober 2024 11:15amMild episode of recurrent major depressive disorderacuteOctober 2024 11:15amOpiate analgesic use agreement existsacuteOctober 2024 11:15amOSA (obstructive sleep apnea)acuteOctober 2024 11:15amProstate canceracuteOctober 2024 11:15amLow back painchronicOctober 2024 11:15am Plan of Treatment Author Tawny Martinez [facility] 2024 8:41pmThe patient has a history of migraine. He states these have improved recently, and he is having approximately 2 migraines per month on average. He has tried and failed Trileptal (ineffective) and trazodone for management without success. Qulipta was approved but remained cost prohibitive, as it would have cost him $675 xie-ff-nqorkr, so he did not start this. I do not believe preventative therapy is necessarily indicated at this time given the vast improvement, and the patient agrees. PLAN: - Continue Depakote 500 mg ER tablet - take 2 tablets (1000 mg) by mouth daily for now - Try to ensure adequate hydration, adequate sleep, stress management, and regular physical exercise as tolerated Patient with tremor that continues over the past 1+ years that worsens with activities possibly worsened by medication side effect. He is on Depakote and Abilify which can worsen tremor. TSH was slightly elevated at 4.347. Valproic acid level was WNL at 78.6. Amantadine has lessened tremor, although he can only tolerate once daily dosing. He had hallucinations with twice a day dosing. PLAN: - Continue amantadine 100 mg mouth daily The patient reports chronic back pain without radiation. He does not seem to have any radicular symptoms in the lower extremities and denies symptoms consistent with neurogenic claudication. He was previously evaluated by pain management and received multiple types of injections and RFAs over the course of 8-10 or so years and notes they were fairly short-lasting, so he stopped following up with them. Previous MRI of the lumbar spine revealed neural foraminal narrowing, degenerative disc disease, and facet arthropathy. He has seen neurosurgery in the past and was advised not to have surgery. He is currently taking Celebrex 200 mg PO daily, tizanidine 8 mg PO QHS PRN, and pregabalin 150 mg PO TID with some relief. Celebrex and pregabalin are managed by his PCP. PLAN: - Okay to continue tizanidine 4 to 8 mg by mouth daily at bedtime as needed for neck pain/muscle spasms - Will prescribe lidocaine patches 5% once daily as needed for posterior neck/back pain - I counseled the patient on proper use and possible adverse effects. Apply for no more than 12 hours in a 24-hour period. Apply to clean, dry, and intact skin only - I discussed options to help further improve pain management with the patient including referral to physical therapy, referral back to pain management for consideration of procedural inventions and/or spinal cord stimulator, and conservative measures. The patient states he does not wish to pursue any of these options currently See above. The patient reports chronic posterior neck pain with intermittent radiation to the bilateral shoulders. He denies radiation to the upper extremities and denies any numbness or focal weakness.?? There is no diffuse hyperreflexia, ataxia, or other signs suggestive of myelopathy on physical exam today. The patient is taking Celebrex and tizanidine with positive response. Medical massages also help. Trigger point injections were helpful previously, but effects were short- lasting, the patient does not seem to have any tenderness to palpation in the bilateral paraspinal cervical muscles today. PLAN: - Okay to continue tizanidine 4 to 8 mg by mouth daily at bedtime as needed for neck pain/muscle spasms - Start lidocaine patches as detailed above The patient has a history of moderate obstructive sleep apnea (PANCHITO) identified on sleep study in January 2024. He reports compliance with CPAP and states this is being managed by his PCP. 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 PLAN: - I encouraged use of CPAP nightly while asleep - Follow-up with primary care provider to discuss need for possible CPAP titration due to waking up with emergency room clerk headaches Diagnoses and treatment plan discussed. The patient verbalizes understanding and is agreeable to the plan. All questions answered. Author Sammy Aguilera [facility] WestAuthoredOctober 2024 10:13pmI have instructed this patient to avoid bending, twisting or lifting. I [...] the correct procedure for obtaining home BP measurements:? - rest for 5 minutes w/o talking. [...] this patient to avoid lying flat after eating.?? I have also recommended to avoid eating 2 hours prior to bedtime.?? They were also informed that smaller, frequent [...] Miralax, titrate to need, which has helped Chronic anemia s/p referral to Hematology w/o treatment Recheck CBC, B12, Fe, FA This patient is aware of the benefits associated with PANCHITO: With continued use, the patient reduces the risk for TX, CVA, HTN, cardiac dysrhythmias and sudden cardiac [...] treatment recommended for this condition. Use of non- opiate treatment should be continued, such as nonstrenuous and aquatic exercises. This patient has a pain management contract and they have been counseled on safe storage of the medication. They have been counseled on the risks of concomitant use with alcohol or sedating meds. PDMP is being followed and this patient's OARRS report is being monitored every 90 days. Future Tests Future scheduled test information is unavailable Pending Tests Test Name Ordered Date Scheduled Date XR lumbar spine 6V w bending May 31, 2025 11:59am Future Visits Future appointment information is unavailable Future Procedures Future procedure information is unavailable Future Medications Future medication information is unavailable Patient Instructions Instruction Admit Date Low back pain in adults March 21 2:02pm Low back pain in adults May 31 11:15am
--- OUTSIDE RECORDS SUMMARY | 2025-06-01 09:30 | XMS_ITS | Encounter Summary ---
Author Organization [facility] Address [address] [facility] [place] [address] Care Team Providers Care Grain Elevator Operator Name Role Phone Sammy Aguilera Primary Care Provider [phone] Lilliam Dominguez COMMODITIES REQUIREMENTS ANALYST-NET LEAD DEVELOPER Unavailable Michelle Haro Unavailable Reason for Visit * ReasonCommentsMed ManagementFollow-up Encounter Details DateTypeDepartmentCare Team (Latest Contact Info)Vggncuvoqmb14/31/2025 10:30 AM EDTOffice Visit [facility] [address] [facility] [place] [phone] Lilliam Dominguez, COMMODITIES REQUIREMENTS ANALYST-NET LEAD DEVELOPER [address] [place] [address] Major depression, recurrent, chronic; Insomnia, unspecified type Social History Tobacco UseTypesPacks/DayYears UsedDateSmoking Tobacco: NeverSmokeless Tobacco: NeverAlcohol UseStandard Drinks/WeekCommentsNot Currently0 (1 standard drink = 0.6 oz pure alcohol)Caffeine: 1-2 cups/day coffeePHQ-2AnswerDate RecordedPatient Health Questionnaire-2 Fqhkc556EducationAnswerDate RecordedWhat is the highest level of school you have completed or the highest degree you have received?Some college, no yhgtcz6801/21/2023Sex and Gender InformationValueDate RecordedSex Assigned at BirthNot on fileLegal AzhKdvy3810/14/2022 7:23 PM EDT Gender MbabuoltVcrv47/15/2023 7:23 PM EDTSexual OrientationNot on fileOccupation IndustryJob Start DateJob End DateDisabledNot on fileNot on fileNot on file documented as of this encounter Last Filed Vital Signs Vital SignReadingTime TakenCommentsBlood Zetwjncu565/8606/01/2025 10:25 AM EDT Oenqw420106/01/2025 10:25 AM EDTTemperature--Respiratory Rate--Oxygen Saturation-- Inhaled Oxygen Concentration--Seeikr89 kg (216 lb)06/01/2025 10:25 AM EDTHeight- -Body Mass Index29.29012/18/2024 10:46 AM EDTdocumented in this encounter Functional Status * Over the past 2 weeks, how often have you been bothered by any of the following problems?QuestionAnswerDate of AssessmentAuthorPatient Health Questionnaire-2 Tamdc938 10:29 AM Jasmin Clifford LPN * Over the last 2 weeks, how often have you been bothered by any of the following problems?QuestionAnswerDate of AssessmentAuthorFeeling nervous, anxious, or on jhhv477 10:30 AM Jasmin Clifford LPNNot being able to stop or control /31/2025 10:30 AM Jasmin Clifford LPNWorrying too much about different 10:30 AM Jasmin Clifford LPNTrouble exxmxtht067/31/2025 10:30 AM Jasmin Clifford LPNBeing so restless that it is hard to sit gypeg903 10:30 AM Jasmin Clifford LPNBecoming easily annoyed or eyxomevew067/31/2025 10:30 AM Jasmin Clifford LPNFeeling afraid as if something awful might uqiwdx698 10:30 AM Jasmin Clifford LPN RASHMI-7 Total Iapix857 10:30 AM Jasmin Clifford LPN * If you checked off any problems on this questionnaire,QuestionAnswerDate of AssessmentAuthorHow difficult have these problems made it for you to do your work, take care of things at home, or get along with other people?Not difficult at all06/01/2025 10:29 AM Jasmin Clifford LPN * Over the past 2 weeks, how often have you been bothered by any of the following problems?QuestionAnswerDate of AssessmentAuthorLittle interest or pleasure in doing thingsMore than half the days06/01/2025 10:29 AM Jasmin Clifford LPNFeeling down, depressed, or hopelessNot at all06/01/2025 10:29 AM Jasmin Watsno LPNTrouwilliam falling or staying asleep, or sleeping too much Nearly every day06/01/2025 10:29 AM Jasmin Clifford, LPNFeeling tired or having little energyMore than half the days06/01/2025 10:29 AM Jasmin Clifford LPNPoor appetite or overeatingMore than half the days06/01/2025 10:29 AM Jasmin Clifford, LPNFeeling bad about yourself - or that you are a failure or have let yourself or your family downNot at all06/01/2025 10:29 AM Jasmin Clifford LPNTrouble concentrating on things, such as reading the newspaper or watching televisionNot at all06/01/2025 10:29 AM Jasmin Clifford LPNMoving or speaking so slowly that other people could have noticed? Or the opposite - being so fidgety or restless that you have been moving around a lot more than usual.Not at all06/01/2025 10:29 AM Jasmin Clifford LPNThoughts that you would be better off or hurting yourself in some wayNot at all06/01/2025 10:29 AM Jasmin Clifford LPNPatient Health Questionnaire-9 Dfcgk951 10:29 AM Jasmin Clifford LPN documented as of this encounter Progress Notes * Lilliam Dominguez, COMMODITIES REQUIREMENTS ANALYST-NET LEAD DEVELOPER - 06/01/2025 10:30 AM EDT Images from the original note were not included. Trenton Holman is a 64 y.o. male presents for Medication Management. HPI: Patient is here for medication follow up. Patient has improved since last appt. Mood is reported as not depressed. No reported Anxiety. Sleeping 6 hours. Trouble staying asleep. Takes melatonin. Does have sleep apnea. Does nap in afternoon. Medication compliant. No reported side effects. Denies abuse of substances. Appetite has improved. New Medical problems since last visit. He is having chronic back problems. On Depakote for headaches. Hand tremors patient noted after starting depakote.Has gained wt. Denies Psychosocial stressors . Would like to continue current medications. SUBJECTIVE: PAST MEDICAL HISTORY: Past Medical History: Diagnosis Date Backache 2013 Brachial neuritis or radiculitis 01/12/2013 Cervicalgia 2013 Degenerative disc disease, cervical 08/18/2016 Depression (CMS/HCC) Disturbance of skin sensation 2013 Diverticulitis Fibromyalgia 08/24/2016 GERD (gastroesophageal reflux disease) Headache Headache 08/18/2016 High cholesterol (CMS/HCC) History of sleep disorder Hyperlipidemia (CMS/HCC) Hypertension (CMS/HCC) Lumbosacral radiculopathy 01/12/2013 Major depression, recurrent, chronic (HCC) (CMS/HCC) Malaise and fatigue 2013 Migraine (CMS/HCC) 11/23/2017 Muscle spasm 11/23/2017 Myalgia 11/23/2017 Neck pain 11/23/2017 Pain in limb 2013 Prostate cancer (CMS/HCC) SCCA (squamous cell carcinoma) of skin History of Lt Tonsillar SCCA + PET SCAN for rt tonsil Shingles Spinal stenosis, lumbar region without neurogenic claudication 08/18/2016 Syndrome affecting cervical region 08/18/2016 Tension headache 11/23/2017 Throat cancer (CMS/HCC) (Lt Tonsillar) Viral warts Viral warts in nostrils ALLERGIES: No Known Allergies SURGICAL HISTORY: Past Surgical History: Procedure Laterality Date CARPAL TUNNEL RELEASE Left 2014 NOSE SURGERY warts removed PALATE BIOPSY 01/28/2009 Soft Palate Bx Squamous hyperplasia RADICAL PROSTATECTOMY CPG 08/2020 TONSILLECTOMY Right 07/03/2008 TONSILLECTOMY Left 05/01/2008 FAMILY HISTORY: Family History Problem Relation Name Age of Onset Breast cancer Mother Hypertension Mother Diabetes Mother Hypertension Father Arthritis Father Breast cancer Sister (2) Diabetes Brother Hypertension Brother Cancer Brother SOCIAL HISTORY: Social History Tobacco Use Smoking status: Never Smokeless tobacco: Never Vaping Use Vaping status: Never Used Substance Use Topics Alcohol use: Not Currently Comment: Caffeine: 1-2 cups/day coffee Drug use: Never Depression: Not at risk (03/24/2024) PHQ-2 PHQ-2 Score: 2 REVIEW OF SYMPTOMS - MENTAL STATUS EXAM Appearance Appearance: Casual dress, normal grooming and hygiene Hand tremors Attitude Attitude: Cooperative, conversant, engaged, and with good eye contact. Behavior Cooperative, conversant, engaged, and with good eye contact. Speech Normal, clear, regular rate, rhythm and volume Affect full affect appropriate with mood Mood euthymic Thought Process Organized and Clear Thought Content No Suicidal Ideation and No Homicidal ideation Perception No perceptual abnormalities noted Orientation Appropriate to age, Person, Place, and Time Memory/Concentration c/o some difficulty with short term memory appoints, can't say how long it wasago for e.g.throat cancer how long ago. Sees a neurologist Insight/Judgement Good OBJECTIVE: Visit Vitals Smoking Status Never No results found for: TSH Lab Results Component Value Date GLU 129 (H) 02/23/2020 CALCIUM 9.5 02/23/2020 NA 140 02/23/2020 K 4.9 02/23/2020 CO2 31 (H) 02/23/2020 BUN 20 02/23/2020 CREATININE 1.32 (H) 02/23/2020 No results found for: WBC , HGB , HCT , MCV , PLT No results found for: CHOL No results found for: HDL No results found for: LDLCALC No results found for: TRIG ASSESSMENT AND PLAN: Assessment/Plan Major depression, recurrent, chronic (HCC) (CMS/HCC [facility] Medication List traZODone HCl Tablet, 100 MG, TAKE 1-2 TABLETS BY MOUTH in pm ARIPiprazole Tablet, 10 MG, 1 tablet, Orally, Once a day Trintellix 20mg po daily Does have sleep apnea. Labs done in January 2024/Patient to have labs sent from December 2024 Patient was seen face to face Reviewed chart documents and documentation, Visit time : 20min Follow up 3 months documented in this encounter Plan of Treatment DateTypeDepartmentCare Team (Latest Contact Info)Senpafcmljs14/30/2026 11:30 AM ESTOffice Visit [facility] [address] [facility] [address] [place] [address] Lilliam Dominguez APRN-CNS [address] [facility] [address] [place] [address] documented as of this encounter Visit Diagnoses Diagnosis Major depression, recurrent, chronic Insomnia, unspecified type documented in this encounter Additional Health Concerns AssessmentNoted TimePHQ-9 Depression Total Score: 91 10:29 AM EDT documented as of this encounter Care Teams Team MemberRelationshipSpecialtyStart DateEnd Date Sammy Aguilera DO [address] [facility] [place] [address] PCP - GeneralInternal Medicine01/08/23 Lilliam Dominguez APRN-CNS [address] [facility] [address] [place] [address] Nurse PractitionerPsychiatry1/ Michelle Haro PA [address] [place], [place] [id number] Physician AssistantNeurology1/documented as of this encounter
--- NOTE | 2025-06-13 | XR_ITS ---
The [address] [address] Patient Name: YENI CONNOR MRN: [id number] date: 1960 Sex: M Assigned Patient Location: [facility] Current Patient Location: [facility] Accession/Order Number: [id number] Exam Date: 06/13/2025 10:00 Report Date: 06/13/2025 11:01 At the request of: ZULEIKA DOLL DO Procedure: XR lumbar spine 6V w bending LUMBAR SPINE WITH FLEXION AND EXTENSION VIEWS- 6 views: CLINICAL HISTORY: chronic mid and right low back pain. COMPARISON: CT 08/21/2023 AP, lateral (neutral, flexion and extension) and both oblique views were obtained. There is osteopenia. There is no evidence of fracture. There is no significant displacement or instability with flexion or extension. There is mild disc space narrowing at L3-4 and L4-5, greater posteriorly. There are tiny endplate spurs. There is lower lumbar facet hypertrophy. No pars defect is identified. The sacroiliac joints are maintained. There are no paraspinal soft tissue abnormalities. XR/XR lumbar spine 6V w bending IMPRESSION: DEGENERATIVE CHANGES, DESCRIBED. NO ACUTE BONY FINDINGS. Impression dictated by: Kely Oliva M.D. 06/13/2025 11:01 AM Dictation Location: [place] [address] Electronically authenticated by: [id number] Y Date: 06/13/2025 11:01
--- OUTSIDE RECORDS SUMMARY | 2025-06-13 09:55 | XMS_ITS | Encounter Summary ---
Author Organization [facility] Address [address] [place] [address] Care Team Providers Care Manager Licensing Name Role Phone Sammy Aguilera Primary Care Provider [phone] Lilliam Dominguez ROLL HANDLER-FREELANCE INTERPRETER/TRANSLATOR Unavailable Michelle Haro Unavailable Encounter Details DateTypeDepartmentCare Team (Latest Contact Info)Ucldkmiirib16/31/2025Bamboo flowsheet [facility] [address] [facility] [address] [place] [phone] Lilliam Dominguez, ROLL HANDLER-FREELANCE INTERPRETER/TRANSLATOR [address] [place] [address] Social History Tobacco UseTypesPacks/DayYears UsedDateSmoking Tobacco: NeverSmokeless Tobacco: NeverAlcohol UseStandard Drinks/WeekCommentsNot Currently0 (1 standard drink = 0.6 oz pure alcohol)Caffeine: 1-2 cups/day coffeePHQ-2AnswerDate RecordedPatient Health Questionnaire-2 Bapbj237EducationAnswerDate RecordedWhat is the highest level of school you have completed or the highest degree you have received?Some college, no tdfxzz0001/21/2023Sex and Gender InformationValueDate RecordedSex Assigned at BirthNot on fileLegal PouOkyh3510/14/2022 7:23 PM EDT Gender FsrosaovLpgr46/15/2023 7:23 PM EDTSexual OrientationNot on fileOccupation IndustryJob Start DateJob End DateDisabledNot on fileNot on fileNot on file documented as of this encounter Plan of Treatment DateTypeDepartmentCare Team (Latest Contact Info)Cmwdcgrzxko29/30/2026 11:30 AM ESTOffice Visit [facility] [address] [place] [address] Lilliam Dominguez, ROLL HANDLER-FREELANCE INTERPRETER/TRANSLATOR [address] [place] [address] documented as of this encounter Visit Diagnoses Not on filedocumented in this encounter Additional Health Concerns AssessmentNoted TimePHQ-9 Depression Total Score: 91 10:29 AM EDT documented as of this encounter Care Teams Team MemberRelationshipSpecialtyStart DateEnd Date Sammy Aguilera, [address] [place] [phone] PCP - GeneralInternal Medicine01/08/23 Lilliam Dominguez, ROLL HANDLER-FREELANCE INTERPRETER/TRANSLATOR [address] [facility] [address] [place] [address] Nurse PractitionerPsychiatry1/ Michelle Haro PA [address] [place] [address] Physician AssistantNeurology1/documented as of this encounter
--- OUTSIDE RECORDS SUMMARY | 2025-06-13 09:55 | XMS_ITS | Encounter Summary ---
Author Organization [facility] Address [address] [place] [address] Care Team Providers Care Bilingual Teacher Name Role Phone WillySammy Primary Care Provider [phone] Lilliam Dominguez FISH FROG OR OYSTER FARMER-WEB SEARCH EVALUATOR Unavailable Michelle Haro Unavailable Encounter Details DateTypeDepartmentCare Team (Latest Contact Info)Uscmscdsari10/31/2025Travel Social History Tobacco UseTypesPacks/DayYears UsedDateSmoking Tobacco: NeverSmokeless Tobacco: NeverAlcohol UseStandard Drinks/WeekCommentsNot Currently0 (1 standard drink = 0.6 oz pure alcohol)Caffeine: 1-2 cups/day coffeePHQ-2AnswerDate RecordedPatient Health Questionnaire-2 Isejx933EducationAnswerDate RecordedWhat is the highest level of school you have completed or the highest degree you have received?Some college, no ductgd3301/21/2023Sex and Gender InformationValueDate RecordedSex Assigned at BirthNot on fileLegal QmvJxma6410/14/2022 7:23 PM EDT Gender XyjczfdqQjxn56/15/2023 7:23 PM EDTSexual OrientationNot on fileOccupation IndustryJob Start DateJob End DateDisabledNot on fileNot on fileNot on file documented as of this encounter Functional Status * Over the past 2 weeks, how often have you been bothered by any of the following problems?QuestionAnswerDate of AssessmentAuthorPatient Health Questionnaire-2 Ophnz599 10:29 AM EDTCJasmin dominique, CUSTOMER QUALITY ENGINEER * Over the last 2 weeks, how often have you been bothered by any of the following problems?QuestionAnswerDate of AssessmentAuthorFeeling nervous, anxious, or on fmzf605 10:30 AM MAGYTCJasmin dominique LPNNot being able to stop or control puzqizpg997/31/2025 10:30 AM Jasmin Clifford LPNWorrying too much about different jkaply917 10:30 AM EDTCAngy dominiquei LPNTrouble xidegqei014/31/2025 10:30 AM EDTCJasmin dominique LPNBeing so restless that it is hard to sit dlefr783 10:30 AM MAGYTCAngy dominiquei, LPNBecoming easily annoyed or cpjwkhdoq560/31/2025 10:30 AM Jasmin Clifford LPNFeeling afraid as if something awful might 10:30 AM MAGYTCAngy dominiquei, CUSTOMER QUALITY ENGINEER RASHMI-7 Total Vtxpo994 10:30 AM EDTCcatina Jasmin, CUSTOMER QUALITY ENGINEER * If you checked off any problems on this questionnaire,QuestionAnswerDate of AssessmentAuthorHow difficult have these problems made it for you to do your work, take care of things at home, or get along with other people?Not difficult at all06/01/2025 10:29 AM Jasmin Clifford, CUSTOMER QUALITY ENGINEER * Over the past 2 weeks, how often have you been bothered by any of the following problems?QuestionAnswerDate of AssessmentAuthorLittle interest or pleasure in doing thingsMore than half the days06/01/2025 10:29 AM EDTCJasmin dominique LPNFeeling down, depressed, or hopelessNot at all06/01/2025 10:29 AM EDT Jasmin Spain LPNTrouble falling or staying asleep, or sleeping too much Nearly every day06/01/2025 10:29 AM EDTCJasmin dominique LPNFeeling tired or having little energyMore than half the days06/01/2025 10:29 AM EDTCAngy dominiquei LPNPoor appetite or overeatingMore than half the days06/01/2025 10:29 AM EDTCcatina Jasmin, LPNFeeling bad about yourself - or that you are a failure or have let yourself or your family downNot at all06/01/2025 10:29 AM EDTCAngy dominiquei LPNTrouble concentrating on things, such as reading the newspaper or watching televisionNot at all06/01/2025 10:29 AM EDTCcatina Jasmin, LPNMoving or speaking so slowly that other people could have noticed? Or the opposite - being so fidgety or restless that you have been moving around a lot more than usual.Not at all06/01/2025 10:29 AM EDTCAngy dominiquei LPNThoughts that you would be better off or hurting yourself in some wayNot at all06/01/2025 10:29 AM MAGYTCJasmin dominique LPNPatient Health Questionnaire-9 Jeygp134 10:29 AM MAGYTCJasmin dominique CUSTOMER QUALITY ENGINEER documented as of this encounter Plan of Treatment DateTypeDepartmentCare Team (Latest Contact Info)Paeiiqaqefe63/30/2026 11:30 AM ESTOffice Visit [facility] [address] [place] [phone] Radha-Lilliam cAevedo APRN-WEB SEARCH EVALUATOR [address] [facility] [address] [place] [address] documented as of this encounter Visit Diagnoses Not on filedocumented in this encounter Additional Health Concerns AssessmentNoted TimePHQ-9 Depression Total Score: 91 10:29 AM EDT documented as of this encounter Care Teams Team MemberRelationshipSpecialtyStart DateEnd Date Sammy Aguilera DO [address] [facility] [place] [phone] PCP - GeneralInternal Medicine01/08/23 Lilliam Dominguez, FISH FROG OR OYSTER FARMER-WEB SEARCH EVALUATOR [address] [place] [address] Nurse PractitionerPsychiatry1/ Michelle Haro PA [address] [place] [address] Physician AssistantNeurology1/documented as of this encounter
--- OUTSIDE RECORDS SUMMARY | 2025-06-13 09:55 | XMS_ITS | Clinical Summary ---
Author Organization [facility] Healthcare Address [address] [place] [address] Care Team Providers Care Pain Management Physician Name Role Phone WillySammy Primary Care Provider [phone] Lilliam Dominguez DETACKER-CPA TAX Unavailable Michelle Haro Unavailable Allergies No known active allergies Medications MedicationSigDispense QuantityRefillsLast FilledStart DateEnd DateStatus buprenorphine (Butrans) 20 MCG/HR Place 1 patch on the skin 1 (one) time per weekActive aspirin 81 MG EC tablet Take 81 mg by mouth DailyActive amLODIPine-benazepril (Lotrel) 2.5-10 MG capsule Take 1 capsule by mouth DailyActive rOPINIRole (Requip) 1 MG tablet Take 1 mg by mouth at bedtimeActive celecoxib (CeleBREX) 200 MG capsule Take 200 mg by mouth DailyActive pravastatin (Pravachol) 80 MG tablet Take 80 mg by mouth at bedtimeActive omeprazole (PriLOSEC) [address] capsule Take 20 mg by mouth in the morning. Take before meals. Do not crush or chew. Active Myrbetriq 50 MG 24 hr tablet Take 50 mg by mouth DailyActive divalproex (Depakote ER) 500 MG 24 hr tablet Indications:Migraine without aura and without status migrainosus, not intractableTAKE 1 TABLET BY MOUTH IN THE MORNING AND 1 TABLET BEFORE BEDTIME. DO NOT CRUSH, CHEW, OR SPLIT 180 tablet 5Active Additional Information Patient taking differently: 1,000 mg Oral Nightly, Reported on 06/01/2025 pregabalin (Lyrica) 150 MG capsule Take 150 mg by mouth in the morning and 150 mg in the evening and 150 mg before bedtime.Active amantadine (Symmetrel) 100 MG capsule Indications:TremorTAKE 1 CAPSULE (100 MG) BY MOUTH IN THE MORNING AND BEFORE BEDTIME 180 capsule 5Active tiZANidine (Zanaflex) 4 MG tablet Indications:MyalgiaTake 1 tablet (4 mg) by mouth in the morning and 1 tablet (4 mg) in the evening and 1 tablet (4 mg)before bedtime. 90 tablet 5Active Vortioxetine HBr (Trintellix) 20 MG tablet Indications:Major depression, recurrent, chronicTake 20 mg by mouth Daily 90 tablet ctive ARIPiprazole (Abilify) 10 MG tablet Indications:Major depression, recurrent, chronicTake 1 tablet (10 mg) by mouth in the morning. 90 tablet 06/01/2025tive traZODone (Desyrel) 100 MG tablet Indications:Major depression, recurrent, chronic,Insomnia, unspecified type1-2 tabs at hs as needed 180 tablet 06/01/2025tive ARIPiprazole (Abilify) 10 MG tablet Indications:Major depression, recurrent, chronicTake 1 tablet (10 mg) by mouth in the morning. 90 tablet Discontinued(Reorder) traZODone (Desyrel) 100 MG tablet Indications:Major depression, recurrent, chronic,Insomnia, unspecified type1-2 tabs at hs as needed 180 tablet Discontinued(Reorder) Vortioxetine HBr (Trintellix) 20 MG tablet Indications:Major depression, recurrent, chronicTake 20 mg by mouth Daily 90 tablet Discontinued(Reorder) Active Problems ProblemNoted DateDiagnosed DateMajor depression, recurrent, zpafxjj5212/12/2022 Vnjzihhh13/13/3590Ciqabasspgi68/21/2021ircadian rhythm sleep disorder, unspecified type02/19/2021OSA (obstructive sleep apnea)12/05/2020egenerative disc disease, zhxqyn1810/31/2020 Assessment & Plan (12/06/2023 7:49 PM EDT): *05/11/2023 Sera Santose MRI lumbar spine from 2012 revealed a [...] prefers to hold off for now. Back pain11/02/2019 Assessment & Plan (12/06/2023 7:46 PM EDT): *05/11/2023 Precious Santos Patient has persistent back pain. He notes that he has had this for years . He has previously seenpain management and has received multiple types of injections over the course of 8 or so years and notes they lasted for a month and so he stopped following up with them. Back pain persists at baseline. Oqvwhsmpydc57/02/2020 Assessment & Plan (12/06/2023 7:48 PM EDT): *11/01/2019 Michelle Haro EMG of the bilateral lower extremities 03/2019 was normal. Riltrlbg18/24/2018 Assessment & Plan (12/06/2023 7:40 PM EDT): *07/05/2023 TomPrecious Patient previously experiencing increase in headaches, which he attributed to stopping his Butrans patch due to cost from another provider. He continues on Depakote. Trileptal was ineffective. PCP ismonitoring labs closely. He continues with headaches periodically but has not been having many migraines. Uqqzlxh6711/23/2017Muscle spasm11/23/2017 Assessment & Plan (12/06/2023 7:42 PM EDT): *07/05/2023 Precious Santos Patients receives medical massages monthly and is taking Zanaflex three times daily. Winter months are triggers for his muscle spasms. He has relief with zanaflex and heat therapy. He was off zanaflex recently due to COVID infection and has since resumed 1 tablet at night. Tension /24/2018Neck pain11/23/2017 Assessment & Plan (12/06/2023 7:44 PM EDT): [...] help but benefits are not lasting. Encounters DateTypeDepartmentCare CbvjMtpqgcuaurm74/31/2025 10:30 AM EDTOffice Visit [facility] [address] [facility] [address] [place] [address] Lilliam Dominguez, DETACKER-CPA TAX Major depression, recurrent, chronic; Insomnia, unspecified type06/01/2025amboo flowsheet [facility] [address] [facility] [address] [place] [address] Lilliam Dominguez DETACKER-CPA TAX 06/01/20257659Ejtnna97/23/2025Refill [facility] [address] [place] [address] RadhaLilliam Farerll, DETACKER-CPA TAX Major depression, recurrent, chronic ; Insomnia, unspecified type03/19/2025Refill [facility] [address] [place] [address] Lilliam Dominguez, DETACKER-CPA TAX Major depression, recurrent, chronicfrom Last 3 Months Family History Medical HistoryRelationNameCommentsCancerBrother 1DiabetesBrother 1Hypertension Brother 1ArthritisFatherHypertensionFatherBreast cancerMotherDiabetesMother HypertensionMotherBreast cancerSister 1(2)RelationNameStatusCommentsBrother 1 DeceasedBrother 2(2)AliveFatherAliveMotherDeceasedSister 1(2)DeceasedSister 2(2) AliveSon(4)Alive Social History Tobacco UseTypesPacks/DayYears UsedDateSmoking Tobacco: NeverSmokeless Tobacco: Never Tobacco Cessation:Counseling Given: Not Answered Alcohol UseStandard Drinks/WeekCommentsNot Currently0 (1 standard drink = 0.6 oz pure alcohol)Caffeine: 1-2 cups/day coffeePHQ-2AnswerDate RecordedPatient Health Questionnaire-2 Ugmyw104EducationAnswerDate RecordedWhat is the highest level of school you have completed or the highest degree you have received?Some college, no ilefyj1601/21/2023Sex and Gender InformationValueDate RecordedSex Assigned at BirthNot on fileLegal LncVmxr4410/14/2022 7:23 PM EDTGender Identity Male10/14/2022 7:23 PM EDTSexual OrientationNot on fileOccupationIndustryJob Start DateJob End DateDisabledNot on fileNot on fileNot on file Last Filed Vital Signs Vital SignReadingTime TakenCommentsBlood Mfzmusug103/8610 10:25 AM EDT Jrvwf242406/01/2025 10:25 AM EDTTemperature--Respiratory Dnvh1373 10:25 AM ESTOxygen Frnvlsyruh80%12/18/2024 10:46 AM EDTInhaled Oxygen Concentration-- Dkevwj40 kg (216 lb)06/01/2025 10:25 AM NBQRsnvem405.9 cm (6')12/18/2024 10:46 AM EDTBody Mass Index29.29012/18/2024 10:46 AM EDT Plan of Treatment DateTypeDepartmentCare Team (Latest Contact Info)Flbpyaehcoo21/30/2026 11:30 AM ESTOffice Visit [facility] [address] [place] [address] Lilliam Dominguez, DETACKER-CPA TAX [address] [facility] [address] [place] [address] Health MaintenanceDue DateLast DoneCommentsCT Eekmprzinvjc1958FIT-DNA 1958FIT1958FOBT1958 2169Pfspogtvstdjj1958Pneumococcal Vaccine: 65+ Years (1 of 1 - PCV)01/07/2008COVID-19 Vaccine (3 - 2024- season) /, 07/15/2021, 10/07/2020Influenza Vaccine (#1)2025 05/16/2024, 07/14/2022, 06/30/2021, Additional history existsColonoscopy /4Colorectal Cancer Dcpcfsaza10/26/2034 [place] [address] Care Teams Team MemberRelationshipSpecialtyStart DateEnd Date Sammy Aguilera DO [address] [facility] [place] [address] PCP - GeneralInternal Medicine01/08/23 Lilliam Dominguez APRN-CPA TAX [address] [facility] [address] [place] [address] Nurse PractitionerPsychiatry1/ Michelle Haro PA [address] [place] [address] Physician AssistantNeurology1/
--- OUTSIDE RECORDS SUMMARY | 2025-06-13 09:55 | XMS_ITS | Clinical Summary ---
Author Organization [facility] Address [address] [place] [address] Care Team Providers Care Blindstitch Machine Operator Name Role Phone Sammy Aguilera Primary Care Provider [phone] Allergies No known active allergies Medications MedicationSigDispense QuantityRefillsLast FilledStart DateEnd DateStatus quetiapine (SEROQUEL) 100 mg tablet Take 100 mg by mouth daily at bedtime.Active LORazepam (ATIVAN) 0.5 mg Tab Take 0.5 mg by mouth daily at bedtime.Active modafinil (PROVIGIL) 100 mg tablet Take 100 mg by mouth once daily.Active venlafaxine XR (EFFEXOR XR) 75 mg 24 hr capsule Take 75 mg by mouth once daily.Active traZODONE 100 mg tablet Take 200 mg by mouth daily at bedtime.Active pregabalin (LYRICA) 100 mg capsule Take 150 mg by mouth three times daily.Active tramadol-acetaminophen 37.5-325 mg per tablet Take 1 tablet by mouth every 6 hours as needed.Active ropinirole (REQUIP) 1 mg tablet Take 1 mg by mouth daily at bedtime.11/03/2019Active esomeprazole (NEXIUM) 40 mg capsule Take 40 mg by mouth once daily.Active amLODIPine (NORVASC) 10 mg tablet Take 10 mg by mouth once daily.Active buprenorphine (BUTRANS) 10 mcg/hour PTWK Apply 1 Patch as directed. Every weekActive buprenorphine HCL (BELBUCA) [address] 150 mcg between cheek and gum q 12 HR.10/17/2019Active celecoxib (CELEBREX) 200 mg capsule Take 200 mg by mouth once daily.08/04/2018Active pravastatin (PRAVACHOL) 80 mg tablet Take 80 mg by mouth daily at bedtime.12/01/2019Active TRINTELLIX 20 mg tab 01/28/2020Active aspirin, enteric coated (ASPIRIN, ENTERIC COATED) 81 mg EC tablet Take 81 mg by mouth once daily.Active amLODIPine-Benazepril (LOTREL) 10-40 mg per capsule Take 1 capsule by mouth once daily.Active methylphenidate (RITALIN) 20 mg tablet Take 30 mg by mouth once daily.01/19/[address] pantoprazole DR (PROTONIX) 40 mg tablet 11/18/2019Active divalproex ER (DEPAKOTE ER) 500 mg 24 hr tablet Take 500 mg by mouth once daily.01/17/2020Active tiZANidine (ZANAFLEX) 4 mg tablet TAKE 1 AND 1/2 TABLETS BY MOUTH 3 TIMES A DAY YDDGYP9211/20/2019Active Active Problems ProblemNoted DateDiagnosed DatePeyronie's hbijure0312/16/2011 Immunizations ImmunizationAdministration DatesNext Dueinfluenza (IIV3) vaccine, trivalent (AFLURIA, FLULAVAL, FLUVIRIN, FLUZONE)05/24/2015influenza (ccIIV4) vaccine, age 6+ mo, quadrivalent, PF (FLUCELVAX)08/12/2018influenza vaccine, unspecified epufklemhhp19/20/2017tetanus diphtheria pertussis (Tdap) vaccine, age 7+ yr (ADACEL, BOOSTRIX)05/21/2016 Family History Medical HistoryRelationCommentsArthritisFatherHypertensionFatherBreast Cancer MotherDiabetesMotherHypertensionMotherRelationStatusCommentsFatherAliveMother Social History Tobacco UseTypesPacks/DayYears UsedDateSmoking Tobacco: FormerCigarettes Smokeless Tobacco: NeverAlcohol UseStandard Drinks/WeekCommentsNot Asked0 (1 standard drink = 0.6 oz pure alcohol)Area Deprivation IndexAnswerDate Recorded National Score (1-100), lower number is lower riskNot on file07/10/2020State Score (1-10), lower number is lower riskNot on file07/10/2020Data from: https://www.neighborhoodatlas.medicine.[facility].edu/. Last address used for calculationNot on file07/10/2020Sex and Gender InformationValueDate RecordedSex Assigned at BirthNot on fileLegal IqnRcul23/02/2012 10:15 AM ESTGender Identity Not on fileSexual OrientationNot on file Last Filed Vital Signs Vital SignReadingTime TakenCommentsBlood Tfomhhid101/5807 2:02 PM EDT Ehznk749102/23/2020 2:02 PM IMBButvygkucer54.6 ??C (97.9 ??F)02/23/2020 2:02 PM EDTRespiratory Amoj422202/23/2020 2:02 PM EDTOxygen Bwouuiwdqc57%02/23/2020 2:02 PM EDTInhaled Oxygen Concentration--Rktlbv61.6 kg (215 lb 3.2 oz)02/23/2020 2:02 PM BSZXmpguy156.9 cm (6' 0.01 )02/23/2020 2:02 PM EDTBody Mass Index29.18 02/23/2020 2:02 PM EDT Plan of Treatment Health MaintenanceDue DateLast DoneCommentsAbdominal Aortic Aneurysm Screening 8Anxiety Dzrdcanfd80/07/1976Depression Qgiqgngty03/07/1976Hepatitis C Swttlzlxk30/07/1976Lipid Bkhjpflgf24/07/1993CT Dqtynjgmoaoi42/07/2003Cologuard (FIT-DNA)01/06/20034647Rurklewqvhl27/07/2003Colorectal Cancer Zejtwmpzx82/07/2003 Fecal Occult Blood2003Prostate Cancer Screening Yeybbfmqai60/07/2003 Bcuxwfrnpskff65/07/2003Pneumococcal Vaccine: 50+ (1 of 1 - PCV)01/07/2008 Shingrix Vaccine (1 of 2)01/07/2008Diabetes Gwryjbsqv82, 01/31/2020Advance Directive Tsnzspnlbh63/01/2025ovid-19 Vaccine (1 - season)2025Influenza Vaccine (#1), 05/21/2017, 05/24/2015DTaP,Tdap,Td Vaccine (2 - Td or Tdap)RSV Vaccine (1 - 1-dose 75+ series)2033 Procedures Procedure NamePriorityDate/TimeAssociated DiagnosisCommentsCOMPREHENSIVE METABOLIC VQMSDZqfzlxx16/24/2020 1:53 PM EDT Other pancytopenia (HCC) from Last 3 Months or Most Recently Relevant to Health Maintenance Results * (ABNORMAL) COMP METABOLIC PANEL (02/23/2020 1:53 PM EDT)ComponentValueRef RangeTest MethodAnalysis TimePerformed AtPathologist SignatureProtein, Total 6.2(L)6.3 - 8.0 g/dL02/23/2020 2:35 PM [facility] CareAlbumin4.23.9 - 4.9 g/dL02/23/2020 2:35 PM [facility] Cancer CareCalcium9.58.5 - 10.2 mg/dL02/23/2020 2:35 PM [facility] CareBilirubin, Total0.40.2 - 1.3 mg/dL02/23/2020 2:35 PM [facility] Cancer CareAlkaline Qqdzsknnvgj2997 - 113 U/L 02/23/2020 2:35 PM [facility] Cancer VeubKOQ9197 - 40 U/L 02/23/2020 2:35 PM [facility] Cancer RkpaOaamrer416(H)74 - 99 mg/dL02/23/2020 2:35 PM [facility] Cancer Care Comment: The [place] Diabetes Association (ADA) provides guidance for cutoff [...] Standards of Medical Care in Diabetes 2016, [place] [employer] Association. Diabetes Care. 2016.39(Suppl 1). CKZ801 - 24 mg/dL02/23/2020 2:35 PM [facility] Creatinine1.32(H)0.73 - 1.22 mg/dL02/23/2020 2:35 PM [facility]CM[facility] Cancer DonyNowrdn908680 - 144 mmol/L02/23/2020 2:35 PM EDShel[facility] Cancer CarePotassium4.93.7 - 5.1 mmol/L02/23/2020 2:35 PM EDT [facility] KcdoOrkwlgxa68444 - 105 mmol/L02/23/2020 2:35 PM EDTCMary[facility] Hospital Cancer FetvAD757(H)22 - 30 mmol/L 02/23/2020 2:35 PM EDTCMarymount Hospital Cancer CareAnion Gap6(L)9 - 18 mmol/L02/23/2020 2:35 PM EDShel[facility] Cancer NjnvQWX8453 - 54 U/L02/23/2020 2:35 PM EDShel[facility] Cancer CareeGFR->6007 2:35 PM EDTCMarymount Hospital Cancer CareeGFR- All Other Races55.02/23/2020 2:35 PM [facility]DShel[facility] Comment: eGFR (Estimated GFR) Units of measure: [...] eGFR may not accurately reflect actual GFR. Specimen (Source)Anatomical Location / LateralityCollection Method / Volume Collection TimeReceived TimeBlood specimen (specimen)BLOOD SPECIMEN / Unknown 02/23/2020 1:53 PM EDT02/23/2020 1:55 PM EDT Narrative Authorizing ProviderResult TypeResult StatusVivek Bhavya LUGOLABORATORYFinal ResultPerforming OrganizationAddressCity/State/ZIP CodePhone Number [address] [address] [facility] [address] [place], [place] from Last 3 Months or Most Recently Relevant to Health Maintenance Insurance Care Teams Team MemberRelationshipSpecialtyStart DateEnd Date Sammy Aguilera DO [address] [place] [address] PCP - GeneralInternal Medicine01/22/20
--- OUTSIDE RECORDS SUMMARY | 2025-06-13 09:55 | XMS_ITS | Clinical Summary ---
Author Organization [facility] tem Address [id number] [place] [address] Care Team Providers Care Print Cutter Name Role Phone Unavailable Primary Care Provider Unavailabl e Allergies Active AllergyReactionsCriticalityNoted DateCommentsNo Known Drug Allergies 02/22/2017 Medications * This document contains information received from the source organization and may not represent a complete record from that organization. MedicationSigDispense QuantityRefillsLast FilledStart DateEnd DateStatus methylphenidate (RITALIN) 20 mg tablet Take 20 mg by mouth 2 (two) times a day. 1.5 tablets twice a dayActive traZODone (DESYREL) 100 mg tablet Take 300 mg by mouth once daily at bedtime.Active buprenorphine (BUTRANS) 20 mcg/hour patch weekly Place 1 patch on the skin once a week.Active MELOXICAM ORAL Take by mouth.Active DIVALPROEX SODIUM (DEPAKOTE ORAL) Take by mouth.Active amlodipine-benazepril (LOTREL) 5-40 mg per capsule Take 1 capsule by mouth daily.Active clotrimazole-betamethasone (LOTRISONE) lotion Apply 1 application topically 2 (two) times a day.Active ibuprofen (ADVIL,MOTRIN) 800 mg tablet Take 800 mg by mouth 3 (three) times a day.Active pregabalin (LYRICA) 150 mg capsule Take 150 mg by mouth 3 (three) times a day.Active pravastatin (PRAVACHOL) 20 mg tablet Take 20 mg by mouth daily.Active aspirin 81 mg Take 81 mg by mouth daily.Active rOPINIRole (REQUIP) 1 mg tablet Take 1 mg by mouth once daily at bedtime.Active vortioxetine (TRINTELLIX) 10 mg tablet Take 1 tablet (10 mg total) by mouth daily. 90 tablet Active Social History Tobacco UseTypesPacks/DayYears UsedDateSmoking Tobacco: Never AssessedChildcare AnswerDate IfeyrynkHbptaddctHowrsqv39/12/2019EmploymentAnswerDate Recorded TctjemecciHnnhhcr72/12/2019Sex and Gender InformationValueDate RecordedSex Assigned at BirthNot on fileLegal XhgXmpx8703/07/2015 12:05 PM EDTGender Identity Not on fileSexual OrientationNot on file Last Filed Vital Signs Vital SignReadingTime TakenCommentsBlood Eqhgjjaj087/8609 8:04 AM EDT Ildqa034604/06/2013 8:04 AM EDTTemperature--Respiratory Rate--Oxygen Saturation-- Inhaled Oxygen Concentration--Weight--Height--Body Mass Index-- Plan of Treatment Health MaintenanceDue DateLast DoneCommentsDepression Tnarxvdva75/07/1970Tobacco Bijxtgrir98/07/1970Adult BMI Ihjxwdtnk96/07/1976DTaP,Tdap and Td Vaccines (1 - Tdap)1977Zoster (Shingles) Vaccine (1 of 2)01/07/2008Fall Risk Screening 2023Influenza Thksiyc5304/02/2025RSV ( or age 60+ yrs) (1 - 1-dose 75+ series)2033 Medical Devices Not on file
--- OUTSIDE RECORDS SUMMARY | 2025-06-13 10:09 | XMS_ITS | CCD ---
Author Organization [facility] Care Team Providers Care Electronic Development Technician Name Role Phone Sammy Doll Unavailable SAMMY DOLL Primary Care Physician [phone] KAYLA MCMAHON Attending Unavailable KAYLA MCMAHON Admitting Unavailable SAMMY DOLL Primary Care Unavailable SUSAN BRIDGES Consulting Unavailable SAMMY DOLL Attending Unavailable SAMMY DOLL Consulting Unavailable SAMMY DOLL Primary Care Unavailable SAMMY DOLL Admitting Unavailable Sammy Doll MD Primary Care Provider Angelica JOCKEY ROOM CUSTODIAN-DENTAL LABORATORY SUPERVISORAbi Unavailable Michelle Lance Unavailable Sammy Doll DO Primary Care Provider Kayla Torres Attending Unavailable Kayla Torres Attending Unavailable Kayla Torres Attending Unavailable SUSAN BRIDGES Attending Unavailable Kayla Torres Attending Unavailable Sammy Doll DO Primary Care Provider Susan Bridges PA-C Attending Provider Sammy Doll DO Attending Provider [phone] Michelle Lance Unavailable Juan JOCKEY ROOM CUSTODIAN-CONTENT COORDINATOR-CTawny Attending Provider Sammy Doll DO Primary Care Provider Sammy Doll DO Attending Provider Sammy Doll DO Primary Care Provider Tahir SEPULVEDA Michelle Unavailable MICHELLE HARO Attending Unavailable ABI GREEN Attending Unavailab PRECIOUS Kirk Attending Unavailable ABI GREEN Attending Unavailab MICHELLE Llanos Attending Unavailable ABI GREEN Attending Unavailab le Allergies Allergy ClassificationReported Allergen(s)Allergy TypeDate of OnsetReaction(s) Facility (1 source)patient allergy list reviewed by nurse or physiciaPropensity to adverse [id number][facility] Other (1 source)Allergies ReconciledPropensity to adverse reactions[facility] Other (1 source)No Known Medication Allergies; Translations: [No Known Medication Allergies]Propensity to adverse reactions (disorder)[facility] Medications Current Medications MedicationDrug Class(es)DatesSig (Normalized)Sig (Original)amantadine hydrochloride 100 mg oral capsule (20 sources)Influenza A M2 Protein InhibitorStart: 06-01-2024 End: 16-90-1666gpng 1 capsule by mouth at bedtimeamantadine (Symmetrel) 100 MG capsule Indications: Tremor TAKE 1 CAPSULE (100 MG) BY MOUTH IN THE MORNING AND BEFORE BEDTIME 180 capsule 1 12/19/2024 ActiveStart: 93-27-5098jlse 1 capsule by mouth every other dayAmantadine Hcl 100 mg capsule Active 100 MG PO .QOD February 10, 2024 12:00am Complies with drug therapyamLODIPine 2.5 mg / benazepril hydrochloride 10 mg oral capsule (20 sources)Dihydropyridine Calcium Channel Matilde, Angiotensin Converting Enzyme InhibitorStart: 30-78-3368wqoj 1 capsule by mouth once dailyAmlodipine- Benazepril 2.5-10 mg capsule Active 0 .ROUTE .COMPLEX 90 3 October 18, 2024 7:14am TAKE 1 CAPSULE BY MOUTH ONCE A DAY DIRECTED FOR 90 DAYS Complies with drug therapyStart: 07-01-2023 End: 42-00-5033afza 1 capsule by mouth once dailyAmlodipine-Benazepril 2.5-10 mg capsule Discontinued 1 CAP PO Daily November 06, 2023 12:00am October 18, 2024 7:14amStart: 13-98-2026cdjr 1 capsule by mouth every twenty-four hoursLotrel 10- 20 MG 1 capsule Orally daily for 90 days 30 Aug, 2023 Activetake 1 capsule by mouth every twenty-four hoursLotrel 10-40 MG 1 capsule Orally daily Active ARIPiprazole 10 mg oral tablet (20 sources)Atypical AntipsychoticStart: 82-86-3395nexy 1 tablet by mouth in the morningARIPiprazole (Abilify) 10 MG tablet Indications: Major depression, recurrent, chronic Take 1 tablet(10 mg) by mouth in the morning. 90 tablet 06/01/2025 ActiveStart: 87-89-3291obsa 1 tablet by mouth in the morning ARIPiprazole (Abilify) 10 MG tablet Indications: Major depression, recurrent, chronic Take 1 tablet(10 mg) by mouth in the morning. 90 tablet 06/01/2025 ActiveStart: 11-17-2023 End: 56-11-9288uzmq 1 tablet by mouth in the morningARIPiprazole (Abilify) 10 MG tablet Indications: Major depression, recurrent, chronic Take 1 tablet(10 mg) by mouth in the morning. 90 tablet 11/03/2024 06/01/2025 Discontinued (Reorder) Start: 95-00-2292yrrl 1 mg by mouth once dailyAbilify 10 mg Tab mg tab(s), Oral, Daily, Refills(s) 0 Start Date: 05/13/21 Status: OrderedAspir-81 81 MG (20 sources)take 1 tablet by mouth once dailyAspir-81 81 MG 1 tablet Orally Once a day Activetake 1 tablet by mouth once dailyAspir-81 81 MG 1 tablet Orally Once a day *please review for potential _update for e-prescription and drug interaction check* Activeaspirin 81 mg delayed release oral tablet (20 sources)Platelet Aggregation Inhibitor, Nonsteroidal Anti-inflammatory Drug Start: 24-22-8643ppke 1 tablet by mouth once dailyAspirin 81 mg tablet,delayed release (DR/EC) Active 81 MG PO Daily November 06, 2023 12:00am Complieswith drug therapyStart: 83-92-5825pzbl 1 mg by mouth once dailyaspirin 81 mg oral tablet mg tab(s), Oral, Daily, Refills(s) 0 Start Date: 02/13/20 Status: Ordered Repeat number: 1Atogepant (Qulipta) 60 MG tablet (1 source)Start: 08-31-2024 End: 14-12-3957hrrc 1 tablet by mouth once dailyAtogepant (Qulipta) 60 MG tablet Indications: Migraine without aura and without status migrainosus,not intractable (CMS/HCC) Take 60 mg by mouth Daily 30 tablet 2 08/31/2024 09/30/2024 Activecelecoxib 200 mg oral capsule (20 sources)Nonsteroidal Anti-inflammatory DrugStart: 81-47-1649gxzd 1 capsule by mouth once dailyCelecoxib 200 mg capsule Active 200 MG PO Daily 90 90 3 April 19, 2025 7:34am Complies with drug therapyStart: 05-03-2024 End: 05-70-4531lacp 1 capsule by mouth once dailyCelecoxib 200 mg capsule Discontinued 0 .ROUTE .COMPLEX 90 3 May 03, 2024 7:13am April 19, 2025 7:34am TAKE 1 CAPSULE BY MOUTH EVERY DAY FOR 90 DAYSStart: 11-06-2023 End: 34-81-7429mzei 1 capsule by mouth once dailyCelecoxib 200 mg capsule Discontinued 200 MG PO Daily November 06, 2023 12:00am May 03, 2024 7:13am Start: 36-04-9096suio 1 mg by mouth twice dailyCeleBREX 200 mg Cap mg cap(s), Oral, BID, Refills(s) 0 Start Date: 02/13/20 Status: Ordered Repeat number: 1 dexamethasone 4 mg oral tablet (1 source)CorticosteroidStart: 00-03-8727xznc 1 tablet by mouth once daily dexamethasone 4 mg Tab 4 mg = 1 tab(s), Oral, Daily, # 6 tab(s), Refills(s) 0, Pharmacy: [facility]/pharmacy #[id number], 182, cm, 05/27/23 13:18:00 EDT, Height/Length Dosing, 68.1, kg, 05/27/23 13:18:00 EDT, Weight Dosing Start Date: 05/30/23 Status: OrderedDuoDERM CGF Spots Extra Thin - (15 sources)Start: 66-96-9097EtqSFAZ CGF Spots Extra Thin - as directed Externally qd for 30 days Mar, Active1 ml galcanezumab-gnlm 120 mg/ml auto-injector (2 sources)Start: 12-18-2024 End: 79-01-5891pjvlnaukjzhx (Emgality) 120 MG/ML auto-injector Indications: Migraine without aura and without status migrainosus, not intractable (CMS/HCC) Inject 2 Syringes (240 mg) under the skin 1 (one) time for1 dose 1.12 mL 12/18/2024 12/18/2024 Activelidocaine 0.04 mg/mg medicated patch (1 source)Antiarrhythmic, Amide Local AnestheticStart: 58-42-2515yaxfz 1 dose topically once daily as needed for painLidocaine 4 % adhesive patch,medicated Active 1 PATCH TOPICAL Daily as needed for neck/back pain 3030 0 March 25, 2025 12:00am Low back pain Neck pain Low back pain, unspecified Cervicalgia Applypatch to the posterior neck or low/mid back once daily as needed for pain. Keep in place for no longer than 12 hours in a 24-hour period. Apply to clean, dry, and intact skin. Do not apply to damagedor broken skin. Complies with drug hr mirabegron 50 mg extended release oral tablet (20 sources)beta3-Adrenergic AgonistStart: 32-29-0328bfzg 1 tablet by mouth every twenty-four hoursMirabegron (Myrbetriq) 50 mg tablet extended release 24 hr Active MG PO March 21, 2025 12:00am Complies with drug therapyStart: 03-22-2024 End: 34-98-2969wzey 1 tablet by mouth once dailyMyrbetriq 50 mg oral tablet, extended release 50 mg = 1 tab(s), Oral, Daily, X 30 day(s), # 30 tab(s), Refills(s) 3, Pharmacy: [facility]/pharmacy #[id number], 183, cm, 03/22/24 10:58:00 EDT, Height/Length Dosing, 70.5, kg, 03/22/24 10:58:00 EDT, Weight Dosing Start Date: 03/22/24 Stop Date: 07/20/24 Status: Orderedomeprazole 20 mg delayed release oral capsule (20 sources)Proton Pump InhibitorStart: 07-46-8936pdqp 1 capsule by mouth once dailyOmeprazole 20 mg capsule,delayed release(DR/EC) Active 0 .ROUTE .COMPLEX 90 3 Katrin 5th, 2025 4:44pm TAKE 1 CAPSULE BY MOUTH DAILY Complies with drug therapyStart: 10-18-2023 End: 56-71-7782zzbw 1 capsule by mouth once dailyOmeprazole 20 mg capsule,delayed release(DR/EC) Discontinued 20 MG PO Daily 30 30 October 18, 2023 1:35pm August 06, 2024 4:44pmOmeprazole 20 mg capsule,delayed release(DR/EC) (1 source)Start: 50-77-5302oeze 1 capsule by mouth once dailyOmeprazole 20 mg capsule,delayed release(DR/EC) Active 0 .ROUTE .COMPLEX 90 August 06, 2024 3:44pm TAKE 1 CAPSULE BY MOUTH DAILYpolysaccharide iron complex 150 mg oral capsule (4 sources)Start: 03-01-2025 End: 19-50-8108Ijifarzmaflemb Iron Complex (Ferrex 150) 150 mg iron capsule Active 150 MG PO Daily 90 March 02, 2025 3:08pm Complies with drug therapypravastatin sodium 80 mg oral tablet (20 sources)HMG-CoA Reductase InhibitorStart: 11-11-2023 End: 76-31-9319wpdt 1 tablet by mouth once daily in the eveningPravastatin 80 mg tablet Active 0 .ROUTE .COMPLEX 90 October 24, 2024 12:01pm TAKE 1 TABLET BY MOUTH EVERY DAY IN THE EVENING Complies with drug therapyStart: 02-13-2020 End: 87-49-3588vnkt 1 tablet by mouth once daily in the eveningPravastatin 80 mg tablet Discontinued 80 MG PO Every evening November 06, 2023 12:00am November 11, 2023 8:43pmrOPINIRole 1 mg oral tablet (20 sources)Nonergot Dopamine AgonistStart: 75-86-2251ftyk 1 tablet by mouth once dailyRopinirole 1 mg tablet Active 0 .ROUTE .COMPLEX 90 May 04, 2024 9:59pm TAKE 1 TABLET BY MOUTH EVERY DAY Complies with drug therapyStart: 11-06-2023 End: 81-28-3987ojwt 1 tablet by mouth once dailyRopinirole 1 mg tablet Discontinued 1 MG PO Daily November 06, 2023 12:00am May 04, 2024 9:59pm Start: 01-40-7907rqzx 1 tablet by mouth three times dailyRequip 1 mg Tab mg tab(s), Oral, TID, Refills(s) 0 Start Date: 02/13/20 Status: Ordered Repeat number: 1sildenafil 50 mg oral tablet (3 sources)Phosphodiesterase 5 InhibitorStart: 46-91-0348semttrnlgz 50 mg Tab 50 mg = 1 tab(s), Oral, As Directed, 1 hour before sexual activity. Do not exceed 100 mg (2 tabs) in 24 hours. Cannot take with nitro products., # 30 tab(s), Refills(s) 3, Pharmacy: [facility]/pharmacy #[id number], 183, cm, 12/02/22 8:18:00 EDT, Height/Length Dosi... Start Date: 12/02/22 Status: OrderedtiZANidine 4 mg oral tablet (20 sources)Central alpha-2 Adrenergic AgonistStart: 45-09-7962zoJNRyixaj (Zanaflex) 4 MG capsule Indications: Myalgia Up to TID for muscle spasm 90 capsule 3 12/18/2024 ActiveStart: 57-09-3924ssASBhhisi (Zanaflex) 4 MG capsule Indications: Myalgia Up to TID for muscle spasm 90 capsule 3 12/18/2024 Active Start: 88-37-8058ebBULyvgka (Zanaflex) 4 MG capsule Indications: Myalgia Up to TID for muscle spasm 90 capsule 3 12/18/2024 ActiveStart: 11-06-2023 End: 48-06-2417jror 1 tablet by mouth in the morning, then take 1 tablet by mouth in the evening, then take 1 tablet by mouth at bedtimetiZANidine (Zanaflex) 4 MG tablet Indications: Myalgia Take 1 tablet (4 mg) by mouth in the morningand 1 tablet (4 mg) in the evening and 1 tablet (4 mg) before bedtime. 90 tablet 2 12/28/2024 ActiveStart: 02-13-2020 End: 57-76-9860mmtq 1 capsule by mouth at bedtimetiZANidine (Zanaflex) 4 MG capsule Indications: Myalgia Take 1 capsule (4 mg) by mouth at bedtime 30 capsule 3 08/30/2024 12/18/2024 Discontinued (Reorder)tiZANidine HCl 4 MG 1 and 1/2 tablet as needed Orally Three times a day neurologist ActivetraZODone hydrochloride 100 mg oral tablet (20 sources)Serotonin Reuptake InhibitorStart: 90-38-3021bunLMKgdm (Desyrel) 100 MG tablet Indications: Major depression, recurrent, chronic , Insomnia, unsp ecified type 1-2 tabs at hs as needed 180 tablet 06/01/2025 ActiveStart: 66-89-4661qpxTVDurz (Desyrel) 100 MG tablet Indications: Major depression, recurrent, chronic , Insomnia, unspecified type 1-2 tabs at hs as needed 180 tablet 06/01/2025 ActiveStart: 01-27-2024 End: 98-86-9446oxfMNYssk (Desyrel) 100 MG tablet Indications: Major depression, recurrent, chronic , Insomnia, unspecified type 1-2 tabs at hs as needed 180 tablet 11/03/2024 06/01/2025 Discontinued (Reorder)Start: 47-72-0261tuxz 3 tablets by mouth once daily at bedtimeTrazodone Active 300 MG PO Daily at bedtime November 06, 2023 12:00am FreeTextSig: take 3 tablet Orally at bedtime; Note: Source Status: Taking; Provider: Willy Christianson ( )Start: 18-47-3713emzm 3 tablets by mouth once daily at bedtimeTrazodone 100 mg tablet Active 300 MG PO Daily at bedtime November 06, 2023 12:00am FreeTextSig: take3 tablet Orally at bedtime; Note: Source Status: Taking; Provider: Willy Christianson ( )Complies with drug therapyStart: 74-09-3733lyoy 1 tablet by mouth once daily at bedtimetraZODONE 100 mg Tab 100 mg = 1 tab(s), Oral, Once a day (at bedtime), Refills(s) 0 Start Date: 05/27/23 Status: Btnicew95 hr divalproex sodium 500 mg extended release oral tablet (20 sources)Mood Stabilizer, Anti-epileptic AgentStart: 75-18-1477qbtj 1 tablet by mouth every twenty-four hours in the morningdivalproex (Depakote ER) 500 MG 24 hr tablet Indications: Migraine without aura and without status migrainosus, not intractable TAKE 1 TABLET BY MOUTH IN THE MORNING AND 1 TABLET BEFORE BEDTIME. DO NOT CRUSH, CHEW, OR SPLIT 180 tablet 2 10/24/2024 ActiveStart: 18-78-4837scez 1 tablet by mouth every twenty-four hours in the morning divalproex (Depakote ER) 500 MG 24 hr tablet Indications: Migraine without aura and without status migrainosus, not intractable (CMS/HCC) Take 1 tablet (500 mg) by mouth in the morning and 1 tablet (500 mg) before bedtime. Do not crush, chew, or split.. 180 tablet 2 02/01/2024 ActiveStart: 23-82-2652Cwdzukopyj 500 mg tablet extended release 24 hr Active 1000 MG PO Daily November 06, 2023 12:00am Complies with drug therapyStart: 19-51-0376rnds 1000 mg by mouth once daily Divalproex Active 1000 MG PO Daily November 06, 2023 12:00amStart: 13-74-9976xutt 2 tablets by mouth once dailydivalproex sodium 500 mg ER Tab 1,000 mg = 2 tab(s), Oral, Daily, Refills(s) 0 Start Date: 02/13/20 Status: Ordered Repeat number: 1Start: 54-30-8180aqxj 1 mg by mouth once dailydivalproex sodium 500 mg ER Tab mg tab(s), Oral, Daily, Refills(s) 0 Start Date: 02/13/20 Status: Ordered vortioxetine 20 mg oral tablet (20 sources)Start: 02-13-2020 End: 75-73-2671fwcj 1 tablet by mouth once dailyVortioxetine HBr (Trintellix) 20 MG tablet Indications: Major depression, recurrent, chronic Take 20 mg by mouth Daily 90 tablet 06/01/2025 08/30/2025 Active Completed/Discontinued Medications MedicationDrug Class(es)DatesSig (Normalized)Sig (Original)168 hr buprenorphine 0.02 mg/hr transdermal system (20 sources)Partial Opioid AgonistStart: 61-59-1810Iatpvgk 150 mcg buccal film 150 mcg = 1 EA, Buccal, q12hr, Refills(s) 0 Start Date: 11/12/23 Status:Ordered Repeat number: 1Start: 11-06-2023 End: 53-51-4083Dztgoaoxjvfud Hcl (Belbuca) 150 mcg film Discontinued 150 MCG BUCCAL Every 12 hours November 052:00am November 15, 2023 6:07pmStart: 09-16-2023 End: 62-39-2216acknl 20 ug transdermal route every week as needed for pain Buprenorphine 20 mcg/hour patch weekly Discontinued 1 PATCH TRANSDERML Q7D as needed for pain 4 28 0 October 08, 2023 2:35pm November 15, 2023 6:09pm Spondylosis of lumbar spine Spondylosis without myelopathy or radiculopathy, lumbar regionStart: 61-73-2359Hzqsrfsmdjpcz 20 MCG/HR 1 patch Transdermal every 7 days Aug, ActiveStart: 51-11-3877Lyiwojrligclx 20 MCG/HR 1 patch Transdermal every 7 days for 30 days start 07/09Jul, ActiveStart: 16-68-4986Xeetcuiyldeoe 20 MCG/HR 1 patch Transdermal every 7 days for 30 days p/u 06/07, start 06/09Jun, ActiveStart: 31-58-2670Bttxjmmfayscx 20 MCG/HR 1 patch Transdermal every 7 days for 30 days p/u 05/08, start 05/10May, ActiveStart: 92-68-9448Kvxtecpkcnqpa 20 MCG/HR 1 patch Transdermal every 7 days for 30 days p/u 04/09, start 04/10Apr, ActiveStart: 85-35-8495Xzlsspgmxeasx 20 MCG/HR 1 patch Transdermal every 7 days for 30 days Start 03/11Mar, ActiveStart: 21-32-1409Nletkrtmalbjf 20 MCG/HR 1 patch Transdermal every 7 days for 30 days Start 02/08Jan, ActiveStart: 97-95-3918Febcwlrrfqbkl 20 MCG/HR 1 patch Transdermal every 7 days for 30 days Start 01/05Dec, ActiveStart: 21-45-3705Wyhqmfpczvikw 20 MCG/HR 1 patch Transdermal every 7 days p/u 12/03, start 12/04November, ActiveStart: 61-36-5462Fjeqyxdrzlgpz 20 MCG/HR 1 patch Transdermal every 7 days for 28 days Rx 11/04/22 Oct, ActiveStart: 09-50-2846Vkdxnspzdlrdw 20 MCG/HR 1 patch Transdermal every 7 days for 28 days Sep, ActiveBelbuca 150 MCG 1 film to the gum Bucally every 12 hrs Active Belbuca 150 MCG 1 film to the gum Bucally every 12 hrs Active1.5 ml fremanezumab-vfrm 150 mg/ml auto-injector (18 sources)Start: 02-01-2024 End: 34-39-2167mlvcwjllckso (Ajovy) 225 MG/1.5ML auto-injector Indications: Migraine without aura and without status migrainosus, not intractable (CMS/HCC) , Tension headache Inject 1 pen (225 mg) under the skin every 30 (thirty) days 1.5 mL 5 08/30/2024 08/31/2024 Discontinued (Cost of medication)methylphenidate hydrochloride 20 mg oral tablet (20 sources)Central Nervous System StimulantStart: 11-06-2023 End: 37-54-3127Ppyyakldeqtrjey Hcl 20 mg tablet Discontinued 30 MG PO Daily 0 November 06, 2023 12:00am February 10, 2024 10:40amStart: 11-06-2023 End: 43-75-6151javz 30 mg by mouth once dailyMethylphenidate Hcl Discontinued 30 MG PO Daily November 06, 2023 12:00am February 10, 2024 10:40amStart: 93-52-9208mydp 1.5 tablets by mouth every twenty-four hoursRitalin 20 MG 1.5 tablet Orally daily for [address] Doll Dec, Activepantoprazole 40 mg delayed release oral tablet (20 sources)Proton Pump InhibitorStart: 02-13-2020 End: 07-56-6080sdmc 1 tablet by mouth once dailyPantoprazole 40 mg tablet,delayed release (/EC) Discontinued 40 MG PO Daily November 06, 2023 12:00am February 10, 2024 10:40ampregabalin 150 mg oral capsule (20 sources)Start: 10-30-2022 End: 04-65-5786ibjg 1 capsule by mouth three times dailyPregabalin 150 mg capsule Discontinued 150 MG PO Three times daily November 06, 2023 12:00am May 02, 2024 8:49pmStart: 86-85-2835whbv 1 capsule by mouth three times dailyLyrica 100 mg Cap 100 mg = 1 cap(s), Oral, TID, Refills(s) 0 Start Date: 02/13/20 Status: Ordered Problems Active Problems Problem ClassificationProblemDateDocumented DateEpisodic/ChronicBacterial infection; unspecified site (1 source)Bacteremia; Translations: [Bacteremia]Onset: 29-07-6080PnqqpczjJpxggm of head and neck (14 sources)Malignant tumor of tonsillar pillar; 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)]Onset: ChronicCancer of head and neck (9 sources)History of malignant neoplasm of tonsil; Translations: [Personal history of malignant neoplasm of other sites of lip, oral cavity, and pharynx] EpisodicCancer of prostate (20 sources)Malignant tumor of prostate; Translations: [Malignant neoplasm of prostate]Onset: 75-43-0184OltketdCnainx of prostate (11 sources)Personal history of malignant neoplasm of prostate; Translations: [History of malignant neoplasm ofprostate]Onset: 90-13-7601XcirykkvRdwsfz; other and unspecified primary (20 sources)History of squamous cell carcinoma; Translations: [Personal history of malignant neoplasm of other organs and systems]EpisodicCancer; other and unspecified primary (3 sources)Personal history of malignant neoplasm of other organs and systems EpisodicCancer; other and unspecified primary (1 source)H/O: malignant neoplasm; Translations: [Personal history of malignant neoplasm of other organs and systems]EpisodicCardiac dysrhythmias (1 source)Sinus bradycardia; Translations: [Bradycardia, unspecified]Onset: 67-64-1524TlbfvdytArhlkrwjmlq and hemorrhagic disorders (20 sources)Thrombocytopenic disorder; Translations: [Thrombocytopenia, unspecified]ChronicDeficiency and other anemia (5 sources)Pancytopenia; Translations: [Other pancytopenia]82-13-5047Lhngols Deficiency and other anemia (7 sources)Anemia; Translations: [Anemia, unspecified]90-60-6900Tbwigjdx Deficiency and other anemia (1 source)Anemia, unspecifiedEpisodicDiseases of white blood cells (1 source)Leukopenia; Translations: [Decreased white blood cell count, unspecified]ChronicDisorders of lipid metabolism (20 sources)Hypercholesterolemia; Translations: [Pure hypercholesterolemia, unspecified]Onset: 39-94-6960QxnsbruMnrfecgnvpaelr and diverticulitis (3 sources)Diverticular piugyhj64-75-2736ZthvektCshsvultpt disorders (20 sources)Gastro-esophageal reflux disease with esophagitis; Translations: [Gastroesophageal reflux disease with esophagitis without hemorrhage]Onset: 34-86-1933QuxwicgXjljmaslt hypertension (20 sources)Essential hypertension; Translations: [Essential (primary) hypertension]Onset: 26-94-1585MjwymioZnxgjhwoxsozg symptoms and ill-defined conditions (20 sources)Mixed incontinence; Translations: [Incontinence]Onset: 12-02-2022 ChronicGenitourinary symptoms and ill-defined conditions (20 sources)Increased frequency of urination; Translations: [Isolated proteinuria]Onset: 671119-19-6229YaonpbigHyxorjby; including migraine (20 sources)Chronic tension-type headache; Translations: [Chronic tension-type headache, intractable]Onset: 840405-74-4390LnixsbrKujqnlne; including migraine (12 sources)Headache; Translations: [Headache, unspecified]Onset: 08-04-2018 99-79-6035MepirpdpRyygfthmgyrud and screening for infectious disease (1 source)Vaccination given; Translations: [Encounter for immunization]Episodic Malaise and fatigue (2 sources)Malaise and fatigue; Translations: [Other malaise and fatigue]Onset: 50-97-9964RxkpxpyqPldzyhdmxsvvl mental health disorders (20 sources)Primary insomnia; Translations: [Primary insomnia]ChronicMood disorders (20 sources)Recurrent major depression in remission; Translations: [Major depressive disorder, recurrent, in partial remission]Onset: 00-90-8987Lissbpq Neoplasms of unspecified nature or uncertain behavior (9 sources)Neoplasm of uncertain behavior of soft tissues; Translations: [Neoplasms of unspecified nature of bone, soft tissue, and skin]Episodic Osteoarthritis (12 sources)Osteoarthritis of knee; Translations: [Degenerative joint disease of knee]Onset: 21-19-8276GzvaexqJaiih aftercare (9 sources)H/O: high risk medication; Translations: [Other [place] [facility] (current) drug therapy]EpisodicOther aftercare (6 sources)Drug therapy finding; Translations: [correction (current) use of opiate analgesic]66-93-3066VuxuqibsLtilk circulatory disease (1 source)Cardiovascular symptoms; Translations: [Other specified symptoms and signs involving the circulatory and respiratory systems]EpisodicOther connective tissue disease (9 sources)Impingement syndrome of shoulder region; Translations: [Shoulder impingement syndrome]EpisodicOther connective tissue disease (1 source)Fibromyalgia; Translations: [Fibromyalgia]EpisodicOther diseases of bladder and urethra (3 sources)Detrusor overactivity; Translations: [Overactive bladder]Onset: 30-95-4135QzatyzvQjlac diseases of bladder and urethra (3 sources)Overactive lzdygia72-96-9015ZgktdajQnljx gastrointestinal disorders (6 sources)Constipation; Translations: [Constipation, unspecified]11-16-2024 EpisodicOther hematologic conditions (4 sources)Splenic lrnp66-94-0990LoopmkksHasgh hereditary and degenerative nervous system conditions (7 sources)Restless legs; Translations: [Restless legs syndrome]Onset: 31-17-2353LbjnplmMmnkd liver diseases (7 sources)Fatty (change of) liver, not elsewhere classified; Translations: [Nonalcoholic fatty liver disease]93-03-8491SrdivpeRijlz liver diseases (4 sources)Steatosis of onmuq84-10-8710BoqfoerZcaam lower respiratory disease (1 source)Dyspnea; Translations: [Other forms of dyspnea]EpisodicOther male genital disorders (9 sources)Induratio penis plastica; 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]Onset: 44-14-7882LsulmmcAojcb male genital disorders (4 sources)Secondary erectile dysfunction; 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]Onset: 09-81-3831UnkayxiWsoua male genital disorders (8 sources)Erectile dysfunction following radical rwycfdjmbzkry03-83-1605Ttjbeur Other nervous system disorders (1 source)Chronic pain syndrome; Translations: [Chronic pain syndrome]Chronic Other nervous system disorders (20 sources)Organic sleep-wake cycle disorder; Translations: [Circadian rhythm sleep disorder, unspecified type]Onset: 394849-86-0865YeafknwDiqvc nervous system disorders (8 sources)Tremor; Translations: [Tremor, unspecified]15-47-1196KskwlsffZcajy non-traumatic joint disorders (1 source)Monoarthritis of ankle and/or foot; Translations: [Monoarthritis, not elsewhere classified, left ankle and foot]ChronicOther non-traumatic joint disorders (2 sources)Shoulder joint pain; Translations: [Pain in joint, shoulder region] Onset: 54-53-5597BhedwxppCfqwi nutritional; endocrine; and metabolic disorders (1 source)Simple obesity ; Translations: [Other obesity due to excess calories] Onset: 77-32-9487KktugkkHkqns nutritional; endocrine; and metabolic disorders (1 source)Body mass index 30+ - obesity; Translations: [Body mass index 30.0- 30.9, adult]Onset: 84-62-8167XroroozFexcx nutritional; endocrine; and metabolic disorders (6 sources)Abnormal weight loss; Translations: [Abnormal weight loss]Onset: 92-61-4740UdbcpqsfUibek nutritional; endocrine; and metabolic disorders (6 sources)Abnormal weight loss; Translations: [Loss of weight]EpisodicOther nutritional; endocrine; and metabolic disorders (7 sources)Unexplained weight loss ; Translations: [Abnormal weight loss] 66-65-3011EafjzehkAhshr screening for suspected conditions (not mental disorders or infectious disease) (9 sources)Raised prostate specific antigen; Translations: [Elevated prostate specific antigen [PSA]] Resolved: [id number] skin disorders (1 source)Ingrowing nail; Translations: [Ingrowing nail]EpisodicResidual codes; unclassified (20 sources)Obstructive sleep apnea syndrome; Translations: [Obstructive sleep apnea (adult) (pediatric)]Onset: 164746-50-4716CtdqpixHequakpo codes; unclassified (9 sources)Obstructive sleep apnea (adult) (pediatric); Translations: [Obstructive sleep apnea (adult)(pediatric)]ChronicResidual codes; unclassified (1 source)Sleep apnea; Translations: [Sleep apnea, unspecified]Onset: 08-04-2018 ChronicResidual codes; unclassified (20 sources)Hypersomnia; Translations: [Hypersomnia, unspecified]Onset: [id number] codes; unclassified (20 sources)Insomnia; Translations: [Insomnia, unspecified]Onset: 12-12-2022 46-79-0403AetmyxhqYltnessy codes; unclassified (4 sources)Sleep -09-4237GnmjqvqbGloztbvigvv failure; insufficiency; arrest (adult) (1 source)Acute respiratory failure; Translations: [Acute respiratory failure with hypoxia]Onset: 86-81-0887PasonpauQeoxlidzmrr; intervertebral disc disorders; other back problems (20 sources)Lumbar spondylosis; Translations: [Spondylosis without myelopathy or radiculopathy, lumbar region]Onset: 81-47-0024CtbfptaFkpngjk and strains (1 source)Strain of muscle and tendon of back wall of thorax, initial encounter; Translations: [Strain of muscle and tendon of back wall of thorax, initial encounter]Episodic Past or Other Problems Problem ClassificationProblemDateDocumented DateEpisodic/ChronicEsophageal disorders (6 sources)Esophageal disorders; Translations: [Gastro-esophageal reflux disease with esophagitis, without bleeding]Inflammatory conditions of male genital organs (1 source)Chronic prostatitis; Translations: [Chronic prostatitis] Resolved: 35-62-8970LhqmjftOptf disorders (2 sources)Mood disordersOnset: Other aftercare (1 source)High risk drug monitoring status; Translations: [correction (current) use of opiate analgesic]Onset: 35-25-4010QumnpywqBffhy connective tissue disease (9 sources)Myalgia/myositis - multiple; Translations: [Unspecified myalgia and myositis]Onset: 80-21-7118TyqvgomnXvmzb connective tissue disease (1 source)Pain in limb; Translations: [Pain in soft tissues of limb]Onset: 49-95-7300IgxowvsjIybxm connective tissue disease (20 sources)Muscle pain; Translations: [Myalgia, unspecified site]Onset: 419851-62-8904DefxwjvfFclpl connective tissue disease (20 sources)Spasm; Translations: [Other muscle spasm]Onset: EpisodicOther gastrointestinal disorders (1 source)Dysphagia; Translations: [Dysphagia, unspecified]Onset: 08-04-2018 EpisodicOther nervous system disorders (20 sources)Paresthesia; Translations: [Paresthesia of skin]Onset: 11-02-2019 47-57-9006IgjaeinfKbmulzfir and history of mental health and substance abuse codes (1 source)History of tobacco use; Translations: [Personal history of tobacco use, presenting hazards to health]Onset: 49-23-3707TzbjsjzuYogm and subcutaneous tissue infections (1 source)Cellulitis of finger; Translations: [Cellulitis of unspecified finger] Resolved: 13-06-6498WkjfaawxJcwefroccaf; intervertebral disc disorders; other back problems (20 sources)Low back pain; Translations: [Low back pain, unspecified]Onset: 613922-45-9853IpdgfeqaOispgudttbck (9 sources)Personal history of malignant neoplasm of other and unspecified parts of oral cavity and pharynx; Translations: [Personal history of malignant neoplasm of other and unspecified parts of oral cavity and pharynx]Onset: 65-23-1732Mkbus infection (1 source)Postherpetic neuralgia; Translations: [Other postherpetic nervous system involvement]Onset: 54-97-0202XvvipnhgYeekn infection (2 sources)Disease caused by 2019-nCoV; Translations: [COVID-19]Onset: 05-27-2023 Results Test NameValueInterpretationReference RangeFacilityBasophils Auto (Bld) [#/Vol] Ordered By: Sammy Doll on 05-54-7353Hxowbqtql (Bld) [#/Vol]0.0 10 3/uL0.0-0.1 [facility] HospitalBasophils/100 WBC Auto (Bld)Ordered By: Sammy Doll on 63-84-5197Ietjqbezw/100 WBC (Bld)0.8 %0.2-2.0[facility] HospitalCholesterol in LDL Calc [Mass/Vol]Ordered By: Sammy Doll on 10-21-6626Kjhgsjtevtd in LDL [Mass/Vol]69.0 mg/dLPromedica Memorial HospitalComment on above:<100 mg/dl SKOKHOQ347-832 mg/dl NEAR OR ABOVE QSPYYDP205- 159 mg/dl BORDERLINE OSBX116-200 mg/dl HIGH>190 mg/dl VERY HIGHCholesterol in VLDL Calc [Mass/Vol]Ordered By: Sammy Doll on 42-84-4960Rsafkakmxrc in VLDL [Mass/Vol]9.0 mg/dLPromedica Memorial HospitalEosinophils/100 WBC Auto (Bld)Ordered By: Sammy Doll on 80-12-5148Arntrcfnmbw/100 WBC (Bld)4.1 % 0.9-7.0[facility] HospitalErythrocyte distribution width Auto (RBC) [Ratio]Ordered By: Sammy Doll on 55-93-3706Wrlfwnxrnml distribution width (RBC) [Ratio]12.8 %11.0-15.0[facility] HospitalGlobulin Calc (S) [Mass/Vol]Ordered By: Sammy Doll on 90-45-4237Znehppvn (S) [Mass/Vol]3.2 g/dLPromedica Memorial HospitalGlomerular filtration rate (GFR) estimation in non- AmericanOrdered By: Sammy Doll on 02-28-2025 GFR/1.73 sq M.predicted among non-blacks MDRD (S/P/Bld) [Vol rate/Area] mL/min/{1.73_m2}>=60 mL/min/1.73m 2FGuernsey Memorial HospitalHematocrit Auto (Bld) [Volume fraction]Ordered By: Sammy Doll on 97-75-7477Taafmncqdz (Bld) [Volume fraction]42.8 %42.0-54.0[facility] Hemoglobin [Mass/volume] in BloodOrdered By: Sammy Doll on 02-28-2025 Hemoglobin (Bld) [Mass/Vol]14.2 g/dL14.0-18.0[facility] - Chemistry and Chemistry - challengeOrdered By: Sammy Doll on 30-39-1092Iksvcyp [Mass/Vol]3.9 g/dL3.4-5.0[facility] HospitalALP [Catalytic activity/Vol]90 U/E49-969SdojsglcyPromedica Memorial HospitalALT [Catalytic activity/Vol]27 U/O51-59CreiwqdenPromedica Memorial HospitalAST [Catalytic activity/Vol]14 U/EEft29-92BhmsbkicxPromedica Memorial HospitalBilirubin [Mass/Vol]0.7 mg/dL0.2-1.0[facility] HospitalCalcium [Mass/Vol]9.2 mg/dL8.5-10.1FGuernsey Memorial HospitalChloride [Moles/Vol]107 mmol/L 98-107[facility] HospitalCholesterol [Mass/Vol]149 mg/dL<=200 [facility] HospitalCholesterol in HDL [Mass/Vol]71 mg/cYFmyr74-59 [facility] HospitalComment on above:> or =60 mg/dl - LOW CARDIOVASCULAR RISK<40 mg/dl - HIGH CARDIOVASCULAR RISKCO2 [Moles/Vol]31.2 mmol/L21.0-32.0[facility] HospitalCobalamin (Vitamin B12) [Mass/Vol]651 pg/dX018-4428ZrwsdmegzPromedica Memorial HospitalComment on above: Performed at: [employer] [facility] [address] [id number] Director: Dontae Sanchez PhD, Phone: [phone] [Mass/Vol]1.11 mg/dL0.70-1.30[facility] HospitalFerritin [Mass/Vol]26.0 ng/mL 26.0-388.0[facility] HospitalGFR/1.73 sq M.predicted MDRD (S/P/Bld) [Vol rate/Area]mL/min/{1.73_m2}>=60 mL/min/1.73m 2FGuernsey Memorial HospitalGlucose [Mass/Vol]89 mg/yK59-374QnlzazlxbPromedica Memorial Hospital Potassium [Moles/Vol]4.1 mmol/L3.5-5.1FGuernsey Memorial HospitalProtein [Mass/Vol]7.1 g/dL6.4-8.2FPaulding County Hospitalodium [Moles/Vol]147 mmol/NBcsh148-843NkimqvtlxPromedica Memorial HospitalTriglyceride [Mass/Vol]45 mg/dL<=150[facility] HospitalUrea nitrogen [Mass/Vol]35.0 mg/dL High7.0-18.0[facility] HospitalUrea nitrogen/Creatinine [Mass ratio]31.5 mg/mgPromedica Memorial HospitalLaboratory - Hematology and Cell countsOrdered By: Sammy Doll on 22-22-9378Icbchrcb granulocytes/100 WBC (Bld)0.3 %0.0-0.5FGuernsey Memorial HospitalLeukocytes [#/volume] corrected for nucleated erythrocytes in Blood by Automated counOrdered By: Sammy Doll on 57-96-5724ZGX corrected for nucl RBC Auto (Bld) [#/Vol]3.6 10 3/uLLow4.0-11.0[facility] HospitalLymphocytes Auto (Bld) [#/Vol] Ordered By: Sammy Doll on 56-08-2495Wlmunsvpmnd (Bld) [#/Vol]0.9 10 3/uLLow 1.2-3.8[facility] HospitalLymphocytes/100 WBC Auto (Bld)Ordered By: Sammy Doll on 65-02-1822Qtwvpmsbxef/100 WBC (Bld)24.3 %20.5-60.0[facility] Auto (RBC) [Entitic mass]Ordered By: Sammy Doll on 90-82-6108GRR (RBC) [Entitic mass]30.0 pg25.9-34.0[facility] CenterHC Auto (RBC) [Mass/Vol]Ordered By: Sammy Doll on 37-49-8946FKPN (RBC) [Mass/Vol]33.2 g/dL29.9-35.2FGuernsey Memorial HospitalMCV Auto (RBC) [Entitic vol]Ordered By: Sammy Doll on 13-96-0445SCW (RBC) [Entitic vol]90.5 fL80.0-94.0[facility] HospitalMonocytes Auto (Bld) [#/Vol]Ordered By: Sammy Doll on 36-93-7099Sjvfmzlea (Bld) [#/Vol]0.4 10 3/uL 0.3-0.8[facility] HospitalMonocytes/100 WBC Auto (Bld)Ordered By: Sammy Doll on 21-64-4833Ktxabtxae/100 WBC (Bld)10.5 %1.7-12.0[facility] HospitalNeutrophils Auto (Bld) [#/Vol]Ordered By: Sammy Doll on 51-31-4263Maifnwzjcro (Bld) [#/Vol]2.2 10 3/uL1.4-6.5FGuernsey Memorial HospitalNeutrophils/100 WBC Auto (Bld)Ordered By: Sammy Doll on 77-80-4411Gulxuimmpnw/100 WBC (Bld)60.0 %43.0-75.0[facility] HospitalNo Panel InformationOrdered By: Sammy Doll on 50-82-9395Cunzbjgihty # (Auto)0.2 10 3/uL0.0-0.7FGuernsey Memorial HospitalFolate33.20 ng/mL 8.60-58.90[facility] HospitalImmature Granulocyte # (Auto)0.01 10 3/uL0.00-0.03[facility] HospitalPlatelet mean volume Auto (Bld) [Entitic vol]Ordered By: Sammy Doll on 14-53-1117Hnkyjdls mean volume (Bld) [Entitic vol]11.1 fL9.5-13.5FGuernsey Memorial HospitalPlatelets Auto (Bld) [#/Vol]Ordered By: Sammy Doll on 64-20-3373Zsextgcxa (Bld) [#/Vol]123 10 3/xYLoh981-545SpjllapvsPromedica Memorial HospitalRBC Auto (Bld) [#/Vol]Ordered By: Sammy Doll on 10-31-9979ZRE (Bld) [#/Vol]4.73 10 6/uL4.70-6.10Wilson Healtherum or plasma albumin/globulin mass ratioOrdered By: Sammy Doll on 63-73-6876Prxfbig/Globulin [Mass ratio]1.2 {ratio}Wilson Healtherum or plasma anion gap determinationOrdered By: Sammy Doll on 06-56-2970Fsjrd gap [Moles/Vol]12.9 mmol/LFPaulding County Hospitalerum or plasma total cholesterol/high density lipoprotein (HDL) cholesterol mass ratOrdered By: Sammy Doll on 02-28-2025 Cholesterol.total/Cholesterol in HDL [Mass ratio]2.1 {ratio}[facility] HospitalComment on above:3.3 - 4.4 LOW RISK4.4 - 7.1 AVERAGE RISK7.1 - 11.0 MODERATE RISK>11.0 HIGH RISKAmbulatory Visit Summaryon 15-11-4023Qaavbdrtrr Visit SummaryAmbulatory Visit Summary YENI HOLMAN :1960 Visit Date:01/17/2025 Ambulatory Visit Instructions Your Diagnosis Prostate cancer OAB (overactive bladder) Erectile dysfunction after radical prostatectomy Your Care Team Attending Physician - Brian LUGO, Kayla Dubose Primary Care Physician - SAMMY DOLL DO This Is Your Medications List Contact prescribing physician if questions or concerns aripiprazole (Abilify 10 mg Tab) aspirin (aspirin 81 mg oral tablet) buprenorphine (Belbuca 150 mcg buccal film) buprenorphine (buprenorphine 20 mcg/hr transdermal film, extended release) celecoxib (CeleBREX 200 mg Cap) divalproex sodium (divalproex sodium 500 mg ER Tab) pantoprazole (Pantoprazole [address] Tab) pravastatin (pravastatin 80 mg Tab) ropinirole (Requip 1 mg Tab) trazodone (traZODONE 100 mg Tab) vortioxetine (Trintellix 20 mg oral tablet) Procedures Performed Colonoscopy (01/26/2024), EGD - esophagogastroduodenoscopy (01/26/2024), Radical retropubic prostatectomy (05/09/2020), Transrectal biopsy of prostate (02/29/2020), Colonoscopy (2015), EGD - esophagogastroduodenoscopy (2015), External beam radiotherapy (2007), Biopsy of soft palate, Carpal tunnel release, Tonsillectomy. Discharge Vitals Heart Rate (Peripheral) 64 Respiratory Rate 18 Blood Pressure 140/72 Height 183 cm Height 72 in Weight 97.0 kg Weight 213.848 lb BMI 28.96 What to do next You Need to Schedule the Following Appointments Follow Up with Brian LUGO, Kayla Dubose, URL, URO When: Where: You Need to Complete the Following PSA Total, Blood, Routine collect, 01/17/25, Order for future visit, Lab Collect, Prostate cancer, Required & Missing, Print Label By Order Location Medications What How Much When Instructions Unchanged aripiprazole (Abilify 10 mg Tab) 1 Tablets By Mouth Every day Contact prescribing physician if questions or concerns Unchanged aspirin (aspirin 81 mg oral tablet) By Mouth Every day Contact prescribing physician if questions or concerns Unchanged buprenorphine (Belbuca 150 mcg buccal film) 1 Each Buccal Every 12 hours Contact prescribing physician if questions or concerns Unchanged buprenorphine (buprenorphine 20 mcg/ hr transdermal film, extended release) 1 Patches Transdermal Every week Contact prescribing physician if questions or concerns Unchanged celecoxib (CeleBREX 200 mg Cap) By Mouth 2 times a day Contact prescribing physician if questions or concerns Unchanged divalproex sodium (divalproex sodium 500 mg ER Tab) 2 Tablets By Mouth Every day Contact prescribing physician if questions or concerns Unchanged pantoprazole (Pantoprazole [address] Tab) 1 Tablets By Mouth Every day Contact prescribingphysician if questions or concerns Unchanged pravastatin (pravastatin 80 mg Tab) 1 Tablets By Mouth Every day Contact prescribing physician if questions or concerns Unchanged ropinirole (Requip 1 mg Tab) By Mouth 3 times a day Contact prescribing physician if questions or concerns Unchanged trazodone (traZODONE 100 mg Tab) 3 Tablets By Mouth Once a day (at bedtime) Contact prescribing physician if questions or concerns Unchanged vortioxetine (Trintellix 20 mg oral tablet) By Mouth Every day Contact prescribing physician if questions or concerns Allergies No Known Allergies No Known Medication Allergies Problems Ongoing - Any problem that you are currently receiving treatment for. 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 Recurrent major depression Patient Survey You may receive a survey via text or e-mail asking about your office visit. Please share your experience with us by completing your survey. We appreciate your feedback and thank you for choosing us for your care. Education Materials Prostate Cancer The prostate is a small gland that produces fluid that makes up semen (seminal fluid). It is located below the bladder in men, in front of the rectum. Prostate cancer is the abnormal growth of cells in the prostate gland. What are the causes? The exact cause of this condition is not known. What increases the risk? You are more likely to develop this condition if: ??? You are 65 years of age or older. ??? You have a family history of prostate cancer. ??? You have a family history of breast and ovarian cancer. ??? You have genes that are passed from parent to child (inherited), such as BRCA1 and BRCA2. ??? (more content not included)...[facility] CenterU[facility] Office/Clinic Noteon [phone] Office/Clinic NoteUrology Office/Clinic Note Chief Complaint 7 month follow up HPI Staff 7 month f/u with PSA. DX: OAB, prostate cancer and ED after radical prostatectomy PSA: 12/29/24 - <0.13 Previous PSA 01/17/24 - <0.13 *Myrbetriq 50mg qd-pt states he doesn't think he is taking this medication IPSS 6, IAN 1 Denies pain or burning, denies visible blood History of Present Illness Tests reviewed: UA, PSA I have reviewed the previous health record information and history for this patient from Dr. Torres. I have reviewed and verified the staff HPI to be accurate for this encounter. Review of Systems PHQ Score Initial Depression Screen Score: 2 SCORE ROS - Provider Constitutional: denies weight [...] HPI. Physical Exam Vitals & Measurements HR: 64(Peripheral) RR: 18 BP: 140/72 HT: 183 cm HT: 72 in WT: 97.0 kg WT: 213.848 lb BMI: 28.96 General Appearance: alert, no distress, well nourished, well developed adult. Assessment/Plan 65 yo male with history of intermediate risk prostate cancer s/p prostatectomy 2020 here for PSA monitoring. 1. Prostate cancer (C61: Malignant neoplasm of prostate) PSA: 05/06/21 - 0.05 11/04/21 - 0.05 11/30/22 - <0.13 03/12/23 - <0.13 03/17/23 - <0.1 ([facility]) 01/17/24 - <0.13 12/29/24 - <0.13 TRUS/bx 02/29/20 - Kael 7 (3+4) x 3 cores and Kael 6 (3+3) x 5 cores. S/p open radical prostatectomy (nerve sparing) by KARINA and PRW 05/09/20 - pT2, pNX Prostate adenocarcinoma, grade group 2, tertiary pattern 5 <5%. Neg margins. UA neg. IPSS 6 (10). PSA remains undetectable. Will cont to monitor. Follow up 1 yr with PSA (nurse visit) or sooner if needed. Pt understands and agrees with plan. 2. OAB (overactive bladder) (N32.81: Overactive bladder) Started Myrbetriq 50 mg qd on 03/22/24 d/t daytime urinary frequency and leakage at nighttime. Reported marked improvement in sx at prior OV. He does not recall taking this med. Per external pharmacy, was last filled 90d rx 10/25/24. -Pt to confirm what meds he is taking at home, gave pt sticky note as a reminder -If leakage worsens and he is not taking med, he can refill or call for a refill 3. Erectile dysfunction after radical prostatectomy (N52.31: Erectile dysfunction following radicalprostatectomy) Has not been able to achieve erection after surgery. [1] Last took nitro product 7-8 yrs ago. No hx of [place] [2. IAN 1. Not interested in tx, does not have a willing partner. Knows to notify office if he desires tx. Follow-up With When Contact Information Brian LUGO, Kayla Dubose, PEDRO, URO Additional Instructions: 1 yr with PSA (nurse visit) Patient Education Prostate Cancer I, Jazmine Bear, personally scribed for Dr. Torres on 01/17/2025 10:02:54. . Documentation recorded by the scribe, Jazmine Bear, accurately reflects the services(s) I performed and decisions made by me. Authenticated by Dr. Torres on 01/17/2025 10:08:03. 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 Thrombocytopenia Historical Recurrent major depression Procedure/Surgical History Colonoscopy [...] Tab, 1000 mg= 2 tab(s), Oral, Daily Pantoprazole [address] Tab, 40 mg= 1 tab(s), Oral, Daily pravastatin 80 mg Tab, 80 mg= 1 tab(s), Oral, Daily Requip 1 mg Tab, Oral, TID traZODONE 100 mg Tab, 300 mg= 3 tab(s), Oral, Once a day (at bedtime) Trintellix 20 mg oral tablet, Oral, Daily Allergies No Known Kirk (more content not included)...[facility] Comment on above:Result Comment: Electronically Signed By: Kayla Torres MD\.br\Date and Time Signed: 01/17/25 10:08EDT\.br\Electronically Co-Signed By: Jazmine Bear\.br\Date and Time Co-Signed: 01/17/25 10:03 EDTNo Panel Informationon 66-99-7193Mzpnrofk Specific Antigen Total<0.13 ng/mL<=4.00 [facility] 07-56-1694NzpioqgpkDdhnlksvl From: Fatmata Evans To: EU - Administrative; Sent: 06/08/2024 12:37:29 EST Show up: 07/11/2024 12:37:00 EST Subject: Ambulatory Reminder Due Date/Time: 08/21/2024 12:37:00 EST Reminder/Recall Patient needs scheduled with SARAH for a 2-3 month F/U with PVR, due back in August or September [facility] to call and scheduleMer[facility] CenterUrology Office/Clinic Noteon 12-75-9137Hydxnps Office/Clinic NoteUrology Office/Clinic Note Chief Complaint OAB HPI Staff 64yr old male pt here for 3mo f/u with PVR. Previous Dx: history of prostate cancer, OAB, & erectile dysfunction after radical prostatectomy *Myrbetriq 50mg qd PVR of 16ml today Dysuria: denies Incomplete bladder emptying: less than half the time Hematuria: denies Frequency: about half the time Urgency: less than half the time Nocturia: 1x Stream: weak less than half the time, no straining or intermittency Leaking: a little when he is asleep Post void dripping: denies Wearing pads/ Depends: wears a pad when he sleeps Urge incontinence: denies Stress incontinence: denies Incontinence without Sensory Awareness: leaks a little when he sleeps Abdominal pain: denies Flank pain: denies Sexual complaints: severe ED IAN score is 1 Review of Systems PHQ Score Initial Depression Screen Score: 2 SCORE no fever, chills, malaise, myalgia. no rash/lesions. no chest pain, palpitations, or SOB. no abdominal pain, nausea, vomiting. no unilateral calf swelling, redness, pain Physical Exam Vitals & Measurements T: 37 ???C(Temporal Artery) HR: 80(Peripheral) RR: 16 BP: 131/65 HT: 72 in HT: 183 cm WT: 79 kg WT: 173.8 lb BMI: 23.59 General: nontoxic, NAD Mouth: moist mucosa Lungs: normal respiratory effort Cardio: regular rate, good distal perfusion Abdomen: nondistended, no suprapubic distention or tenderness, no CVA tenderness Neurologic: Grossly normal Skin: No rashes or suspicious lesions Assessment/Plan 1. OAB (overactive bladder) (N32.81: Overactive bladder) 03/22/24: PVR 44 ml. UA today negative for blood and infection. IPSS 18 (12). C/o daytime urinary frequency and leakage at nighttime. Does limit fluids before bed. No daytime urgency or incontinence. Start Myrbetriq 50 mg qd. TODAY: Pt reports marked improvement in sx w Myrbetriq. Was leaking a lot at night, now it's almostcompletely resolved. Much better daytime sx. No side effects. IPSS 10 QOL 2. Very pleased. PVR 16ml. UA completed in office today shows no microhematuria or signs of infection. -Continue Myrbetriq without changes. 2. Prostate cancer (C61: Malignant neoplasm of prostate) PSA: 05/06/21 - 0.05 11/04/21 - 0.05 11/30/22 - <0.13 03/12/23 - <0.13 03/17/23 - <0.1 ([facility]) 01/17/24 - <0.13 TRUS/bx 02/29/20 - Kael 7 (3+4) x 3 cores and Kael 6 (3+3) x 5 cores. S/p open radical prostatectomy (nerve sparing) by DLS and PRW 05/09/20 - pT2, pNX Prostate adenocarcinoma, grade group 2, tertiary pattern 5 <5%. Neg margins. PSA remains stable/undetectable. Will cont to monitor annually -PSA due 12/2024. 3. Erectile dysfunction after radical prostatectomy (N52.31: Erectile dysfunction following radicalprostatectomy) Has not been able to achieve erection after surgery. [1] Last took nitro product 7-8 yrs ago. No hx of [place] [2] Pt has not yet tried Sildenafil. Follow-up With When Contact Information Brian LUGO, Kayla Dubose, URL, URO In 6 months Additional Instructions: Patient Education Overactive Bladder, Adult Problem List/Past Medical History Ongoing Abnormal weight [...] prostate (02/29/2020), Colonoscopy (2015), EGD - esophagogastroduodenoscopy (2016), External beam radiotherapy (2007), Biopsy of soft [...] Tab, 1000 mg= 2 tab(s), Oral, Daily Myrbetriq 50 mg oral tablet, extended release, 50 mg= 1 tab(s), Oral, Daily, 3 refills Pantoprazole [address] Tab, 40 mg= [...] History Alcohol - Denies Alcohol Use, 02/13/2020 Never., 06/08/2024 Substance Abuse - (more content not included)...[facility] CenterComment on above:Result Comment: Electronically Signed By: SUSAN BRIDGES PA-C\.br\Date and Time Signed: 06/11/2423:00 ESTAmbulatory Visit Summaryon [id number] Visit SummaryAmbulatory Visit Summary EVELYNE HOLMANOTHY Swapnil :1960 Visit Date:06/08/2024 Ambulatory Visit Instructions Your Diagnosis OAB (overactive bladder) Prostate cancer Your Care Team Attending Physician - SUSAN BRIDGES PA-C Primary Care Physician - SAMMY DOLL DO This Is Your Medications List aripiprazole (Abilify 10 mg Tab) aspirin (aspirin 81 mg oral tablet) buprenorphine (Belbuca 150 mcg buccal film) buprenorphine (buprenorphine 20 mcg/hr transdermal film, extended release) celecoxib (CeleBREX 200 mg Cap) divalproex sodium (divalproex sodium 500 mg ER Tab) mirabegron (Myrbetriq 50 mg oral tablet, extended release) pantoprazole (Pantoprazole [address] Tab) pravastatin (pravastatin 80 mg Tab) ropinirole (Requip 1 mg Tab) trazodone (traZODONE 100 mg Tab) vortioxetine (Trintellix 20 mg oral tablet) Procedures Performed Colonoscopy (01/26/2024), EGD - esophagogastroduodenoscopy (01/26/2024), Radical retropubic prostatectomy (05/09/2020), Transrectal biopsy of prostate (02/29/2020), Colonoscopy (2015), EGD - esophagogastroduodenoscopy (2015), External beam radiotherapy (2007), Biopsy of soft palate, Carpal tunnel release, Tonsillectomy. Discharge Vitals Temperature (Temporal Artery) 37 ???C Heart Rate (Peripheral) 80 Respiratory Rate 16 Blood Pressure 131/65 Height 183 cm Height 72 in Weight 79 kg Weight 173.8 lb BMI 23.59 What to do next Scheduled Follow-Up Appointments Wednesday 10:45 AM EDT With: Brian LUGO, Kayla Dubose Where: [facility] [address] [address]- Medications What How Much When Instructions Unchanged aripiprazole (Abilify 10 mg Tab) 1 Tablets By Mouth Every day Unchanged aspirin (aspirin 81 mg oral tablet) By Mouth Every day Unchanged buprenorphine (Belbuca 150 mcg buccal film) 1 Each Buccal Every 12 hours Unchanged buprenorphine (buprenorphine 20 mcg/ hr transdermal film, extended release) 1 Patches Transdermal Every week Unchanged celecoxib (CeleBREX 200 mg Cap) By Mouth 2 times a day Unchanged divalproex sodium (divalproex sodium 500 mg ER Tab) 2 Tablets By Mouth Every day Unchanged mirabegron (Myrbetriq 50 mg oral tablet, extended release) 1 Tablets By Mouth Every day Duration: 30 Days Unchanged pantoprazole (Pantoprazole [address] Tab) 1 Tablets By Mouth Every day Unchanged pravastatin (pravastatin 80 mg Tab) 1 Tablets By Mouth Every day Unchanged ropinirole (Requip 1 mg Tab) By Mouth 3 times a day Unchanged trazodone (traZODONE 100 mg Tab) 3 Tablets By Mouth Once a day (at bedtime) Unchanged vortioxetine (Trintellix 20 mg oral tablet) By Mouth Every day Allergies No Known Allergies No Known Medication Allergies Problems Ongoing - Any problem that you are currently receiving treatment for. 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 Recurrent major depression Patient Survey You may receive a survey via text or e-mail asking about your office visit. Please share your experience with us by completing your survey. We appreciate your feedback and thank you for choosing us for your care. [facility] CenterUrology Office/Clinic Noteon [id number] Office/Clinic NoteUrology Office/Clinic Note Chief Complaint 1 year follow [...] <0.13 03/12/23 - <0.13 03/17/23 - <0.1 ([facility]) 01/17/24 - <0.13 TRUS/bx 02/29/20 - [place] 7 (3+4) x 3 cores and [place] 6 (3+3) x 5 cores. S/p open [...] mg qd. SEs discussed. Rx sent to [facility]. Pt to call if cost prohibitive, would prescribe anticholinergic. SEs of anticholinergics discussed. 3. Erectile dysfunction after radical prostatectomy (N52.31: Erectile dysfunction following radicalprostatectomy) Has not been able to achieve erection after surgery. [1] Last took nitro product 7-8 yrs ago. No hx of [place] [2] IAN 1 (0). Pt was to start Sildenafil 50 mg prn at prior OV but he has not had the chance to try this med yet. Follow-up With When Contact Information Kayla Torres MD, URL, URO Additional Instructions: 2-3 mos with PVR (new med) Patient Education Overactive Bladder, Adult Botulinum Toxin Bladder Injection IJazmine, personally scribed for Dr. Torres on 03/22/2024 [...] Transrectal biopsy of prostate (more content not included)...[facility] CenterComment on above:Result Comment: Electronically Signed By: Kayla Torres MD\.br\Date and Time Signed: 03/22/24 12:12EDT\.br\Electronically Co-Signed By: Jazmine Bear.violeta\Date and Time Co-Signed: 03/22/24 11:19 EDTBasophils/100 WBC Manual cnt (Bld)on 73-40-3201Cntsqvlvb/100 WBC (Bld)0.0 %Low0.2-2.0[facility] HospitalCholesterol in LDL Calc [Mass/Vol]on 06-10-7443Fiakqimmgcp in LDL [Mass/Vol]90.0 mg/dLPromedica Memorial HospitalComment on above:<100 mg/dl AFNZRUM525-934 mg/dl NEAR OR ABOVE GNEZJUE212-606 mg/dl BORDERLINE UGBP197-283 mg/dl HIGH>190 mg/dl VERY HIGHCholesterol in VLDL Calc [Mass/Vol]on 01-17-2024 Cholesterol in VLDL [Mass/Vol]8.8 mg/dLPromedica Memorial Hospital Eosinophils/100 WBC Manual cnt (Bld)on 62-09-8117Wptvzkhfnuh/100 WBC (Bld)0.0 % Low0.9-7.0[facility] HospitalErythrocyte distribution width Auto (RBC) [Ratio]on 52-27-8229Gkctiyewfzw distribution width (RBC) [Ratio]12.9 % 11.0-15.0[facility] HospitalEstimated glomerular filtration rate (GFR) non- Americanon 79-57-3821PVT/1.73 sq M.predicted among non-blacks MDRD (S/P/Bld) [Vol rate/Area]mL/min/{1.73_m2}>=60[facility] HospitalGlobulin Calc (S) [Mass/Vol]on 08-48-9574Jalfeeco (S) [Mass/Vol]3.3 g/dL [facility] HospitalGlucose mean value [Mass/volume] in Blood Estimated from glycated hemoglobinon 62-04-2198Muqltwv glucose Estimated from glycated hemoglobin (Bld) [Mass/Vol]103 mg/dLPromedica Memorial Hospital Hematocrit Auto (Bld) [Volume fraction]on 65-09-3325Neyphikrtb (Bld) [Volume fraction]38.8 %Low42.0-54.0[facility] HospitalHemoglobin [Mass/volume] in Bloodon 40-10-4380Olknfkqpwo (Bld) [Mass/Vol]12.6 g/dLLow 14.0-18.0[facility] HospitalLaboratory - Chemistry and Chemistry - challengeon 20-19-1704Mjdzfil [Mass/Vol]3.4 g/dL3.4-5.0[facility] HospitalALP [Catalytic activity/Vol]86 U/U47-129AezenjaffPromedica Memorial HospitalALT [Catalytic activity/Vol]17 U/A01-92AmpvuveshPromedica Memorial Hospital AST [Catalytic activity/Vol]9 U/RIcn89-53GecsvxyiePromedica Memorial Hospital Bilirubin [Mass/Vol]0.7 mg/dL0.2-1.0[facility] HospitalCalcium [Mass/Vol]9.5 mg/dL8.5-10.1FGuernsey Memorial HospitalChloride [Moles/Vol] 103 mmol/S39-692ZmiwgqaflPromedica Memorial HospitalCholesterol [Mass/Vol]175 mg/dL <=200Prom[facility] Memorial HospitalCholesterol in HDL [Mass/Vol]77 mg/dLHigh 40-60[facility] HospitalComment on above:> or =60 mg/dl - LOW CARDIOVASCULAR RISK<40 mg/dl - HIGH CARDIOVASCULAR RISKCO2 [Moles/Vol]34.2 mmol/LHigh21.0-32.0[facility] HospitalCreatinine [Mass/Vol]1.04 mg/dL0.70-1.30[facility] HospitalGFR/1.73 sq M.predicted MDRD (S/P/Bld) [Vol rate/Area]mL/min/{1.73_m2}>=60[facility] Glucose [Mass/Vol]80 mg/cV26-025BgvstxaobPromedica Memorial HospitalPotassium [Moles/Vol]4.5 mmol/L3.5-5.1FGuernsey Memorial HospitalProtein [Mass/Vol] 6.7 g/dL6.4-8.2FPaulding County Hospitalodium [Moles/Vol]141 mmol/L 136-145Prom[facility] Memorial HospitalTriglyceride [Mass/Vol]44 mg/dL<=150 [facility] HospitalTSH Qn2.798 m[IU]/L0.358-3.740Prom[facility] Memorial HospitalUrea nitrogen [Mass/Vol]23.0 mg/dLHigh7.0-18.0[facility] HospitalUrea nitrogen/Creatinine [Mass ratio]22.1 mg/mgPromedica Memorial HospitalLaboratory - Hematology and Cell countson 44-34-5549PdB1m (Bld) [Mass fraction]5.2 %4.5-6.2FGuernsey Memorial HospitalComment on above:ADA RECOMMENDED LIMIT 4.0 - 6.0ADA THERAPEUTIC TARGET < 7.0ACTION SUGGESTED> 7.0Lymphocytes/100 WBC (Bld)5.0 %Low20.5-60.0[facility] HospitalMonocytes/100 WBC (Bld)6.0 %1.7-12.0[facility] HospitalLeukocytes [#/volume] corrected for nucleated erythrocytes in Blood by Automated counon 68-24-6279BNY corrected for nucl RBC Auto (Bld) [#/Vol]8.6 10 3/uL4.0-11.0[facility] CenterH Auto (RBC) [Entitic mass]on 75-25-7811RNQ (RBC) [Entitic mass]28.8 pg25.9-34.0[facility] HospitalMCHC Auto (RBC) [Mass/Vol]on 19-74-2626XQEW (RBC) [Mass/Vol]32.5 g/dL 29.9-35.2FGuernsey Memorial HospitalMCV Auto (RBC) [Entitic vol]on 01-91-8027ZMW (RBC) [Entitic vol]88.8 fL80.0-94.0[facility] HospitalMicroalbumin [Mass/volume] in Urineon 83-23-2911Knnivio DL <= 20 mg/L (U) [Mass/Vol]1.5 mg/dL<=30.0[facility] HospitalNo Panel Informationon 00-37-3076Pygeevpt Basophils (Manual)0.00 10 3/uL0.00-0.10[facility] HospitalEosinophils # (Manual)0.00 10 3/uL0.00-0.70[facility] HospitalLymphocytes # (Manual)0.43 10 3/uLLow1.20-3.80[facility] HospitalMonocytes # (Manual)0.51 10 3/uL0.30-0.80[facility] HospitalProstate Specific Antigen Screen<0.13 ng/mL<=4.00[facility] Healthegmented Neutrophils # (Manual)7.65 10 3/uLHigh1.4-6.5 [facility] HospitalPlatelet mean volume Auto (Bld) [Entitic vol]on 65-85-0037Uknokydm mean volume (Bld) [Entitic vol]11.0 fL9.5-13.5FGuernsey Memorial HospitalPlatelets Auto (Bld) [#/Vol]on 47-18-4968Yeeylthje (Bld) [#/Vol]135 10 3/qVQrh742-394DejtmhgxePromedica Memorial HospitalRBC Auto (Bld) [#/Vol]on 44-20-0990OAX (Bld) [#/Vol]4.37 10 6/uLLow4.70-6.10[facility] Healthegmented neutrophils/100 WBC Manual cnt (Bld)on 01-17-2024 Segmented neutrophils/100 WBC (Bld)89.0 %Wilson Healtherum or plasma albumin/globulin mass ratioon 48-16-2757Wamxtsi/Globulin [Mass ratio] 1.0 {ratio}Wilson Healtherum or plasma anion gap determinationon 65-13-9426Eihyg gap [Moles/Vol]8.3 mmol/LFPaulding County Hospitalerum or plasma total cholesterol/high density lipoprotein (HDL) cholesterol mass chacorta 14-08-4215Gnkgmotuqee.total/Cholesterol in HDL [Mass ratio]2.3 {ratio}[facility] HospitalComment on above:3.3 - 4.4 LOW RISK4.4 - 7.1 AVERAGE RISK7.1 - 11.0 MODERATE RISK>11.0 HIGH RISKCHEMISTRY Ordered By: SYSTEM SYSTEM on 25-08-7638Bwqxhvvkte trough [Moles/Vol]13 microgram/gFCcbmsb17 - 20 mcg/mLFTMC RemisolAnion gap [Moles/Vol]9 mmol/LNormal6 - 16 mEq/LFTMC RemisolCalcium [Mass/Vol]8.6 mg/dLLow8.9 - 11.1 mg/dLFTMC RemisolChloride [Moles/Vol]94 mmol/JDxi358 - 111 mmol/LFTMC RemisolCO2 [Moles/Vol]35 mmol/LHigh21 - 31 mmol/LFTMC RemisolCreatinine [Mass/Vol]0.7 mg/dL Normal0.5 - 1.3 mg/dLFTMC RemisolGFR/1.73 sq M.predicted among non-blacks MDRD (S/P/Bld) [Vol rate/Area]102 mL/min/1.73 x2Fainad>=59mL/min/1.73 m2FT Chem S Comment on above:Interpretive Data: Chronic kidney disease could be indicated at eGFR's of less than 60 mL/min/1.73m2. Kidney failure is indicated at less than 15 mL/min/1.73m2.Glucose [Mass/Vol]88 mg/wYPltzgt62 - 199 mg/dLFTMC Remisol Comment on above:Interpretive Data: If this glucose result represents a fasting glucose, interpretation should referto the following reference range: 55-99 mg/dLPotassium [Moles/Vol]3.3 mmol/LLow3.5 - 5.3 mmol/LFTMC RemisolSodium [Moles/Vol]135 mmol/WFxddnd174 - 145 mmol/LFTMC RemisolUrea nitrogen [Mass/Vol] 25 mg/dLHigh5 - 21 mg/dLFTMC RemisolUrea nitrogen/Creatinine [Mass ratio]36 mg/hpElzw79 - 20FT[facility] RemisolVancomycin peak [Moles/Vol]25 microgram/uFSkkmod16 - 40 mcg/mLFTMC RemisolHEMATOLOGYOrdered By: SYSTEM SYSTEM on 05-30-2023 Basophils/100 WBC (Bld)0.3 %Normal0.0 - 2.0 %[facility] HemeAutoSSBasophils/Leukocytes Auto (Bld) [Pure # fraction]0.0 E9/LNormal0.0 - 0.2 E9/LFTMC HemeAutoSS Eosinophils/100 WBC (Bld)0.0 %Normal0.0 - 8.0 %[facility] HemeAutoSS Eosinophils/Leukocytes Auto (Bld) [Pure # fraction]0.0 E9/LNormal0.0 - 0.5 E9/L [facility] HemeAutoSSLymphocytes/100 WBC (Bld)17.8 %Astrqi89.0 - 50.0 %[facility] HemeAutoSS Lymphocytes/Leukocytes Auto (Bld) [Pure # fraction]0.8 E9/LLow1.0 - 4.0 E9/LFTMC HemeAutoSSMonocytes/100 WBC (Bld)6.9 %Normal4.0 - 14.0 %[facility] HemeAutoSS Monocytes/Leukocytes Auto (Bld) [Pure # fraction]0.3 E9/LNormal0.2 - 1.0 E9/L [facility] HemeAutoSSNeutrophils/100 WBC (Bld)75.0 %Zdmeye53.0 - 75.0 %[facility] HemeAutoSS Neutrophils/Leukocytes Auto (Bld) [Pure # fraction]3.6 E9/LNormal2.0 - 7.5 E9/L [facility] HemeAutoSSHEMATOLOGYOrdered By: Michelle Manuel on 81-26-7284Xnhxgcxqtyk distribution width (RBC) [Ratio]13.1 %Rasfwh12.9 - 14.2 %[facility] HemeAutoSS Hematocrit (Bld) [Volume fraction]39.3 %Wpyetk81.7 - 49.0 %[facility] HemeAutoSS Hemoglobin (Bld) [Mass/Vol]13.1 g/dLLow13.5 - 17.5 gm/dLFTMC HemeAutoSSMCH (RBC) [Entitic mass]28.8 pqPjezbz03.0 - 34.0 pgFTMC HemeAutoSSMCHC (RBC) [Mass/Vol] 33.3 g/qATcotqr94.4 - 36.0 gm/dLFTMC HemeAutoSSMCV (RBC) [Entitic vol]86.4 fL Tjhvlc80.0 - 100.0 fLFTMC HemeAutoSSPlatelet mean volume (Bld) [Entitic vol]8.5 fLNormal6.4 - 10.8 fLFTMC HemeAutoSSPlatelets (Bld) [#/Vol]167.0 E9/BZylyya483.0 - 500.0 E9/LFTMC HemeAutoSSRBC (Bld) [#/Vol]4.5 E12/LNormal4.3 - 5.9 E12/LFTMC HemeAutoSSWBC corrected for nucl RBC Auto (Bld) [#/Vol]4.8 E9/LNormal4.0 - 11.0 E9/LFTMC HemeAutoSSCHEMISTRYOrdered By: SYSTEM SYSTEM on 83-30-3169Yekrnjc [Mass/Vol]2.5 g/dLLow3.3 - 5.0 gm/dLFTMC RemisolAlbumin/Globulin [Mass ratio]0.9 {ratio}Low1.1 - 2.2[facility] RemisolALP [Catalytic activity/Vol]43 [iU]/zLqgwxc31 - 98 Int._Unit/LFTMC RemisolALT No additional P-5'-P [Catalytic activity/Vol]10 [iU]/dNormal6 - 46 Int._Unit/LFTMC RemisolAnion gap [Moles/Vol]7 mmol/LNormal6 - 16 mEq/LFTMC RemisolAST [Catalytic activity/Vol]15 [iU]/dNormal5 - 43 Int._Unit/LFTMC RemisolBilirubin [Mass/Vol]0.3 mg/dLNormal0.0 - 1.1 mg/dLFTMC RemisolBilirubin.direct [Mass/Vol]0.1 mg/dLNormal0.1 - 0.4 mg/dLFTMC Remisol Calcium [Mass/Vol]8.6 mg/dLLow8.9 - 11.1 mg/dLFTMC RemisolChloride [Moles/Vol] 102 mmol/QFjwisy335 - 111 mmol/LFTMC RemisolCO2 [Moles/Vol]34 mmol/LHigh21 - 31 mmol/LFTMC RemisolCreatinine [Mass/Vol]0.8 mg/dLNormal0.5 - 1.3 mg/dLFTMC RemisolGFR/1.73 sq M.predicted among non-blacks MDRD (S/P/Bld) [Vol rate/Area]98 mL/min/1.73 h3Vbkstp>=59mL/min/1.73 m2FT Chem SComment on above:Interpretive Data: Chronic kidney disease could be indicated at eGFR's of less than 60 mL/min/1.73m2. Kidney failure is indicated at less than 15 mL/min/1.73m2. Globulin (S) [Mass/Vol]2.7 g/dLNormal1.4 - 4.0 gm/dLFTMC RemisolGlucose [Mass/Vol]93 mg/qDXmdctd99 - 199 mg/dLFTMC RemisolComment on above:Interpretive Data: If this glucose result represents a fasting glucose, interpretation should referto the following reference range: 55-99 mg/dLPotassium [Moles/Vol]3.7 mmol/LNormal3.5 - 5.3 mmol/LFTMC RemisolProtein [Mass/Vol]5.2 g/dLLow6.0 - 7.8 gm/dLFTMC RemisolSodium [Moles/Vol]139 mmol/NKwgeug006 - 145 mmol/LFTMC Remisol TSH Qn1.15 m[IU]/LNormal0.34 - 5.60 mcIU/mLFTMC RemisolUrea nitrogen [Mass/Vol] 27 mg/dLHigh5 - 21 mg/dLFTMC RemisolUrea nitrogen/Creatinine [Mass ratio]34 mg/tcKquv92 - 20[facility] RemisolHEMATOLOGYOrdered By: SYSTEM SYSTEM on 05-29-2023 Basophils/100 WBC (Bld)0.2 %Normal0.0 - 2.0 %[facility] HemeAutoSSBasophils/Leukocytes Auto (Bld) [Pure # fraction]0.0 E9/LNormal0.0 - 0.2 E9/LFTMC HemeAutoSS Eosinophils/100 WBC (Bld)0.2 %Normal0.0 - 8.0 %[facility] HemeAutoSS Eosinophils/Leukocytes Auto (Bld) [Pure # fraction]0.0 E9/LNormal0.0 - 0.5 E9/L [facility] HemeAutoSSLymphocytes/100 WBC (Bld)12.6 %Low14.0 - 50.0 %[facility] HemeAutoSS Lymphocytes/Leukocytes Auto (Bld) [Pure # fraction]0.7 E9/LLow1.0 - 4.0 E9/LFTMC HemeAutoSSMonocytes/100 WBC (Bld)7.5 %Normal4.0 - 14.0 %[facility] HemeAutoSS Monocytes/Leukocytes Auto (Bld) [Pure # fraction]0.4 E9/LNormal0.2 - 1.0 E9/L [facility] HemeAutoSSNeutrophils/100 WBC (Bld)79.5 %High36.0 - 75.0 %[facility] HemeAutoSS Neutrophils/Leukocytes Auto (Bld) [Pure # fraction]4.6 E9/LNormal2.0 - 7.5 E9/L [facility] HemeAutoSSHEMATOLOGYOrdered By: Michelle Manuel on 31-08-2365Zzckqufbnhv distribution width (RBC) [Ratio]13.3 %Lzevgu92.9 - 14.2 %[facility] HemeAutoSS Hematocrit (Bld) [Volume fraction]32.0 %Low37.7 - 49.0 %[facility] HemeAutoSS Hemoglobin (Bld) [Mass/Vol]10.9 g/dLLow13.5 - 17.5 gm/dLFTMC HemeAutoSSMCH (RBC) [Entitic mass]29.4 bbGofrsi61.0 - 34.0 pgFTMC HemeAutoSSMCHC (RBC) [Mass/Vol] 34.2 g/mBIqwsgs00.4 - 36.0 gm/dLFTMC HemeAutoSSMCV (RBC) [Entitic vol]85.8 fL Ycjkeo04.0 - 100.0 fLFTMC HemeAutoSSPlatelet mean volume (Bld) [Entitic vol]8.3 fLNormal6.4 - 10.8 fLFTMC HemeAutoSSPlatelets (Bld) [#/Vol]156.0 E9/YBlsfnv078.0 - 500.0 E9/LFTMC HemeAutoSSRBC (Bld) [#/Vol]3.7 E12/LLow4.3 - 5.9 E12/LFTMC HemeAutoSSWBC corrected for nucl RBC Auto (Bld) [#/Vol]5.8 E9/LNormal4.0 - 11.0 E9/LFTMC HemeAutoSSCHEMISTRYOrdered By: Krishna Carter on 49-21-8208Hdrmnwv [Mass/Vol]120 mg/vWOuql13 - 99 mg/dLFTMC POC SubsectionComment on above:Result Comment: Notified RN/MDPOC UsernameSISAAC, Edin Interpretation CodeFTMC POC SubsectionSodium [Moles/Vol][id number] mmol/LInvalid Interpretation CodeAR[facility] POC SubsectionSodium [Moles/Vol][id number] mmol/LInvalid Interpretation CodeAR[facility]CK[facility] POC SubsectionCHEMISTRYOrdered By: SYSTEM SYSTEM on 02-80-4016Xxfaksp [Mass/Vol]3.2 g/dLLow3.3 - 5.0 gm/dLFTMC Remisol Albumin/Globulin [Mass ratio]1.0 {ratio}Low1.1 - 2.2[facility] RemisolALP [Catalytic activity/Vol]58 [iU]/kQbgiiq50 - 98 Int._Unit/LFTMC RemisolALT No additional P-5'-P [Catalytic activity/Vol]10 [iU]/dNormal6 - 46 Int._Unit/LFTMC Remisol Anion gap [Moles/Vol]10 mmol/LNormal6 - 16 mEq/LFTMC RemisolAST [Catalytic activity/Vol]16 [iU]/dNormal5 - 43 Int._Unit/LFTMC RemisolBilirubin [Mass/Vol] 0.5 mg/dLNormal0.0 - 1.1 mg/dLFTMC RemisolBilirubin.direct [Mass/Vol]0.2 mg/dL Normal0.1 - 0.4 mg/dLFTMC RemisolBilirubin.indirect [Mass or moles/Vol]0.4 mg/dL Normal0.1 - 0.9 mg/dLFTMC RemisolCalcium [Mass/Vol]9.1 mg/dLNormal8.9 - 11.1 mg/dLFTMC RemisolChloride [Moles/Vol]98 mmol/LAed934 - 111 mmol/LFTMC RemisolCO2 [Moles/Vol]36 mmol/LHigh21 - 31 mmol/LFTMC RemisolCreatinine [Mass/Vol]0.8 mg/dLNormal0.5 - 1.3 mg/dLMC RemisolGFR/1.73 sq M.predicted among non-blacks MDRD (S/P/Bld) [Vol rate/Area]98 mL/min/1.73 i0Nthnrq>=59mL/min/1.73 m2[facility] Chem SComment on above:Interpretive Data: Chronic kidney disease could be indicated at eGFR's of less than 60 mL/min/1.73m2. Kidney failure is indicated at less than 15 mL/min/1.73m2.Globulin (S) [Mass/Vol]3.3 g/dLNormal1.4 - 4.0 gm/dLFTMC RemisolGlucose [Mass/Vol]107 mg/kWMhxfcv40 - 199 mg/dLFTMC RemisolComment on above:Interpretive Data: If this glucose result represents a fasting glucose, interpretation should referto the following reference range: 55-99 mg/dL Potassium [Moles/Vol]4.2 mmol/LNormal3.5 - 5.3 mmol/LFTMC RemisolProtein [Mass/Vol]6.5 g/dLNormal6.0 - 7.8 gm/dLFTMC RemisolSodium [Moles/Vol]140 mmol/L Jifirp691 - 145 mmol/LFTMC RemisolUrea nitrogen [Mass/Vol]19 mg/dLNormal5 - 21 mg/dLFTMC RemisolUrea nitrogen/Creatinine [Mass ratio]24 mg/jjLmtc33 - 20[facility] RemisolHEMATOLOGYOrdered By: SYSTEM SYSTEM on 86-23-7206Johvkpxtv/100 WBC (Bld) 0.1 %Normal0.0 - 2.0 %[facility] HemeAutoSSBasophils/Leukocytes Auto (Bld) [Pure # fraction]0.0 E9/LNormal0.0 - 0.2 E9/LFTMC HemeAutoSSEosinophils/100 WBC (Bld)0.0 %Normal0.0 - 8.0 %[facility] HemeAutoSSEosinophils/Leukocytes Auto (Bld) [Pure # fraction]0.0 E9/LNormal0.0 - 0.5 E9/LFTMC HemeAutoSSLymphocytes/100 WBC (Bld)6.8 %Low14.0 - 50.0 %[facility] HemeAutoSSLymphocytes/Leukocytes Auto (Bld) [Pure # fraction]0.4 E9/LLow1.0 - 4.0 E9/LFTMC HemeAutoSSMonocytes/100 WBC (Bld)3.6 %Low 4.0 - 14.0 %[facility] HemeAutoSSMonocytes/Leukocytes Auto (Bld) [Pure # fraction]0.2 E9/LNormal0.2 - 1.0 E9/LFTMC HemeAutoSSNeutrophils/100 WBC (Bld)89.5 %High36.0 - 75.0 %[facility] HemeAutoSSNeutrophils/Leukocytes Auto (Bld) [Pure # fraction]4.9 E9/L Normal2.0 - 7.5 E9/LFTMC HemeAutoSSHEMATOLOGYOrdered By: Michelle Manuel on 51-15-1687Ribcmrlzede distribution width (RBC) [Ratio]13.1 %Xzcurp50.9 - 14.2 % [facility] HemeAutoSSHematocrit (Bld) [Volume fraction]36.2 %Low37.7 - 49.0 %[facility] HemeAutoSSHemoglobin (Bld) [Mass/Vol]12.2 g/dLLow13.5 - 17.5 gm/dLFTMC HemeAutoSSMCH (RBC) [Entitic mass]29.1 awIewpsn45.0 - 34.0 pgFTMC HemeAutoSSMCHC (RBC) [Mass/Vol]33.7 g/xXMkaclu27.4 - 36.0 gm/dLFTMC HemeAutoSSMCV (RBC) [Entitic vol]86.4 oWPsbird52.0 - 100.0 fLFTMC HemeAutoSSPlatelet mean volume (Bld) [Entitic vol]7.9 fLNormal6.4 - 10.8 fLFTMC HemeAutoSSPlatelets (Bld) [#/Vol]147.0 E9/AMnv343.0 - 500.0 E9/LFTMC HemeAutoSSRBC (Bld) [#/Vol]4.2 E12/L Low4.3 - 5.9 E12/LFTMC HemeAutoSSWBC corrected for nucl RBC Auto (Bld) [#/Vol] 5.5 E9/LNormal4.0 - 11.0 E9/LFTMC HemeAutoSSNo Panel InformationOrdered By: ANGPROCESSSERVER MICROBIOLOGY on [id number] Culture CharcoalNo growth at 2 days. Final to follow at [address] [facility] HospitalBlood Culture CharcoalNo growth at 2 days. Final to follow at [address] [facility] HospitalURINALYSISOrdered By: Kojo Klein on [id number] Ql (U) Negative (05/28/23 12:53 AM)NormalNegativeAR[facility]CK[facility] [place] UA Auto SSClarity (U)Clear (05/28/23 12:53 AM)NormalClearFBROOKHAVEN [facility] [place] UA Auto SSColor (U)Yellow (05/28/23 12:53 AM)NormalYellowFT UA Auto SSEpithelial cells.squamous LM.HPF (Urine sed) [#/Area]0-2 /HPFNormal0-2/HPFARBUCKLE MEMORIAL [facility] [place] UA Auto SSGlucose Test strip (U) [Mass/Vol]Negative (05/28/23 12:53 AM)NormalNegativeARBUCKLE [facility] [place] UA Auto SSHemoglobin Ql (U)Negative (05/28/23 12:53 AM)NormalNegativeARBUCKLE [facility] [place] UA Auto SSKetones (U) [Mass/Vol]Negative (05/28/23 12:53 AM)NormalNegativeARBUCKLE [facility] [place] UA Auto SSLithium.plasma/[place].RBC (Bld) [Mass ratio]0-3 /HPFNormal0-3/HPFARBUCKLE MEMORIAL [facility] [place] UA Auto SSNitrite Ql (U)Negative (05/28/23 12:53 AM)NormalNegativeARBUCKLE [facility] [place] UA Auto SSpH (U)6.5 *NA* (05/28/23 12:53 AM)Invalid Interpretation Code5.0 - 9.0[facility] [place] UA Auto SSProtein (U) [Mass/Vol]Negative (05/28/23 12:53 AM)NormalNegativeARBUCKLE [facility] [place] UA Auto SSSpecific gravity (U) [Rel density]1.010 *NA* (05/28/23 12:53 AM)Invalid Interpretation Code1.005 - 1.030[facility] [place] UA Auto SSUA Spec DescRandom Urine (05/28/23 12:53 AM)NormalARBUCKLE [facility]ORIAL [facility] [place] UA Auto SSUrobilinogen Qn (U){Dani'U}/dLInvalid Interpretation Code0.0 - 1.0 EU/dLARBUCKLE [facility]ORIAL [facility]OSP[facility] [place] UA Auto SSWBC Auto Ql (U)Negative (05/28/23 12:53 AM)NormalNegativeARBUCK[facility] [place] UA Auto SSWBC LM.HPF (Urine sed) [#/Area] 0-5 /HPFNormal0-5/HPFMC UA Auto SSCHEMISTRYOrdered By: SYSTEM SYSTEM on [id number] I.cardiac [Mass/Vol]6.00 pg/mLLow15.90 - 38.40 pg/mLARBUCKLE [facility]ORIAL [facility] [place] RemisolComment on above:Interpretive Data: The 95% CI (Confidence Interval) PPV (Positive Predictive Value) for myocardial infarction in females is 38 pg/mL, in males 51 pg/mL. The results should be used in conjunction withclinical conditions of myocardial infarction. ([employer] High Sensitivity Troponin I Instructions For Use, [employer], March 2018)Troponin I.cardiac [Mass/Vol]6.00 pg/mLLow15.90 - 38.40 pg/mL[facility] RemisolComment on above:Interpretive Data: The 95% CI (Confidence Interval) PPV (Positive Predictive Value) for myocardial infarction in females is 38 pg/mL, in males 51 pg/mL. The results should be used in conjunction withclinical conditions of myocardial infarction. ([employer] High Sensitivity Troponin I Instructions For Use, [employer], March 2018)Troponin I.cardiac [Mass/Vol]6.40 pg/mLLow15.90 - 38.40 pg/mL[facility] RemisolComment on above:Interpretive Data: The 95% CI (Confidence Interval) PPV (Positive Predictive Value) for myocardial infarction in females is 38 pg/mL, in males 51 pg/mL. The results should be used in conjunction withclinical conditions of myocardial infarction. ([employer] High Sensitivity Troponin I Instructions For Use, [employer], March 2018)CHEMISTRYOrdered By: Comfort Pavon on [id number] peptide B (Bld) [Mass/Vol]81 pg/mLHigh5 - 80 pg/mL[facility] [place] HemeManSSCOAGULATIONOrdered By: Lori Geronimo on 20-16-3145xFQW Coag (PPP) [Time]27.2 cJoowtu30.1 - 36.5 second(s) [facility] Auto CoagComment on above:Interpretive Data: Parameter 15 days - 4 weeks 1 - 5 months 6 - 11 months 1 - 5 years 6 - 10 years 11 - 17 years PTT Mean: 35.4 (27.6-45.6) Mean: 33.5 (24.8-40.7) Mean: 32.4 (25.1-40.7) Mean: 31.6 (24.0-39.2) Mean: 31.6 (26.9-38.7) Mean: 31.0 (24.6-38.4) Pediatric Reference ranges were obtained from a study by vicki Eubanks al. prepared from 1437 samples obtained at 7 different centers using the same coagulation reagent and instrumentation as [facility]. Currently there are no coagulation studies available worldwide for children to 14 days, andno normal ranges. Heparin therapeutic range (represented by Anti-Factor Xa activity of 0.2 - 0.4 U/mL) corresponds to PTT of 56.6 - 109.0 sec.INR Coag (PPP) [Relative time]1.3 {INR}Invalid Interpretation CodeARBUCKLE [facility]OR[facility] Auto CoagComment on above:Interpretive Data: INR results are specifically intended to assess patients stabilized on long-term Anticoagulation therapy suggested INR s Less Intensive Anticoagulation 2.0 3.0 Conventional Range 3.0 4.5PT Coag (PPP) [Time]14.2 sHigh9.4 - 12.5 second(s)[facility] Auto CoagComment on above:Interpretive Data: 15 days - 4 weeks 1 - [...] the same coagulation reagent and instrumentation as [facility]. Currently there are no coagulation studies available worldwide for children to 14 days, andno normal ranges. Blood GasesOrdered By: Shyann Hu on 05-27-2023/A Ratio Art 72.70 %Normal>=0.80%[facility] Resp Auto SSAaDO2 Art35.4 mm[Hg]High5.0 - 15.0 mmHgAR[facility]CKLE [facility] Resp Auto SSAllens TestNot Applicable (05/27/23 1:39 PM)NormalFT Resp Auto SSBase Excess Arterial9.7 mmol/LNormal >=2.8mmol/LFTMC Resp Auto SScCa2+ Art4.56 mg/dLNormal4.40 - 5.30 mg/dLFT Resp Auto SScCl- Art95.0 mmol/LNtx406.0 - 111.0 mmol/LFTMC Resp Auto SScGlu Kkt097 mg/nXDbob53 - 99 mg/dLFT Resp Auto SScK+ Art4.3 mmol/LNormal3.5 - 5.3 mmol/L FT Resp Auto SScLac Art0.9 mmol/LNormal0.5 - 2.2 mmol/LFTMC Resp Auto SScNa+ Vol063.0 mmol/QTubqul898.0 - 145.0 mmol/LFTMC Resp Auto SSDrawn bytrsInvalid Interpretation CodeFT Resp Auto SSFCOHb Art1.6 %Normal1.5 - 4.9 %FT Resp Auto SSComment on above:Interpretive Data: Reference range Nonsmoker <1.5% Smoker <5.0% Heavy Smoker <9.0%FMetHb Art0.3 %Normal0.0 - 1.9 %FT Resp Auto YAOD0Bm Art97.0 %Drmryz04.0 - 100.0 %[facility] Resp Auto SSHCO3 (Bld) [Moles/Vol]33.4 mmol/LHigh22.0 - 26.0 mmol/LFTMC Resp Auto SSHemoglobin (Bld) [Mass/Vol]11.7 g/dLLow12.0 - 17.0 gm/dLFT Resp Auto SSP CO2 Bdiaibpi19.0 mm[Hg]High35.0 - 45.0 mmHgFT Resp Auto SSP O2 Xjsubgwv94.5 mm[Hg]Aiihok75.0 - 100.0 mmHg[facility] Resp Auto SSpH (Bld)7.404 [pH]Normal7.350 - 7.450FT Resp Auto SSSample SiteR Radial (05/27/23 1:39 PM)NormalFT Resp Auto SSSample TypeArterial Draw (05/27/23 1:39 PM)NormalFT Resp Auto SSSodium [Moles/Vol]21.0 mmol/LInvalid Interpretation CodeFT Resp Auto SSMICRO OTHER TESTSOrdered By: Lori Geronimo on 98-79-4090Ddzlanlhtb A AgNegative (05/27/23 1:47 PM)NormalNegativeARBUCKLE [facility] Man SeroInfluenzae B AgNegative 1 (05/27/23 1:47 PM)NormalNegativeARBUCKLE [facility] Man SeroComment on above:Interpretive Data: Test sensitivity and specificity vary for age group, specimen type, antigen types, and prevalence of disease. Test results must be evaluated in conjunction with other clinical dataavailable to the physician. Individuals who received nasally administered Influenza A vaccine may have positive test results up to 3 days after vaccination.Rapid COV Int NEG CtlPass (05/27/23 1:47 PM)NormalARBUCKLE [facility] Man SeroRapid COV Int POS CtlPass (05/27/23 1:47 PM)NormalARBUCKLE [facility] Man SeroSARS-CoV+SARS-CoV-2 (COVID-19) Ag IA.rapid Ql (Resp)Detected 16 *ABN* (05/27/23 1:47 PM)Invalid Interpretation CodeNot DetectedARBUCKLE [facility] Man SeroComment on above:Interpretive Data: The Infinititor System for Rapid Detection of SARS-CoV-2 is a chromatographic digital immunoassay intended for the direct and qualitative detection of SARS-CoV-2 nucleocapsid antigens in nasal swabs from individuals who are suspected of COVID-19 by their healthcare provider withinthe first five days of the onset of [...] of proteins from SARS-CoV-2, not for any otherviruses or pathogens; and, in the [place], this test is only authorized for the duration of the declaration that circumstances exist justifying the authorization of emergency use of in vitro diagnostics for detection and/or diagnosis of the virus that causes COVID-19 under Section 564(b)(1) of the Act,21 U.S.C. 360bbb-3(b)(1), unless the authorization is terminated or revoked sooner.No Panel InformationOrdered By: Marie Macario on 77-07-5511Koanm Culture CharcoalStaphylococcus species coagulase negative In 2 of 2 blood culture bottles drawn. Isolated from aerobic and anaerobic bottles Preliminary result of gram positive cocci in clusters called to Dr. Spivey 05/28/2023 12:28:37 by KD. Also alerted that his second set of blood cultures looks to be a different organism.[facility] HospitalBlood Culture CharcoalGram Positive Rods resembling diphtheroids and Staphylococcus species coagulase negative In 2 of 2 blood culture bottles drawn. Isolated from aerobic and anaerobic bottles Preliminary gram stain result of gram positive rods given to Dr. Spivey 05/28/2023 12:28:37.[facility] HospitalCHEMISTRYOrdered By: SYSTEM SYSTEM on 17-38-1550Qayouqvh specific Ag [Mass/Vol]ng/mLNormal0.1 - 3.5 ng/mL [facility] RemisolCBC AUTO DIFFon [id number] #0.0 103/ulNormal0.0-0.1The [facility] HospitalComment on above:Performed By: #### CBC #### [facility] [address] [address] [address] Nida Isbellphils/100 WBC (Bld)0.6 %Normal0.2-2.0[facility] Comment on above:Performed By: #### CBC #### [facility] [address] [address] [address] Nida Dumont #0.1 103/ulNormal0.0-0.7The [facility] HospitalComment on above: Performed By: #### CBC #### [facility] [address] [place] [address] Dr. Nida Kiserosinophils/100 WBC (Bld)2.3 %Normal0.9-7.0[facility] Comment on above:Performed By: #### CBC #### [facility] [address] [place] [address] Dr. Nida Kiserrythrocyte distribution width (RBC) [Ratio]13.6 %Tromfs96.0-15.0 [facility] HospitalComment on above:Performed By: #### CBC #### [facility] [address] [place] [address] Dr. Nida CastilloHematocrit (Bld) [Volume fraction]39.7 %Critically low42.0-54.0 [facility] HospitalComment on above:Performed By: #### CBC #### [facility] [address] [place] [address] Dr. Nida CastilloHemoglobin (Bld) [Mass/Vol]12.4 g/dLCritically low14.0-18.0The [facility] HospitalComment on above:Performed By: #### CBC #### [facility] [address] [place] [address] Dr. Nida Saez #0.01 10e3/ulNormal0.00-0.03The [facility] HospitalComment on above:Performed By: #### CBC #### [facility] [address] [place] [address] Dr. Nida Saez %0.3 %Normal0.0-0.5The [facility] HospitalComment on above: Performed By: #### CBC #### [facility] [address] [place] [address] Dr. Nida StacyH #0.6 103/ulCritically low1.2-3.8[facility] Comment on above:Performed By: #### CBC #### [facility] [address] [place] [address] Dr. Nida Quintanamphocytes/100 WBC (Bld)17.7 %Critically low20.5-60.0The [facility] HospitalComment on above:Performed By: #### CBC #### [facility] [address] [place] [address] Dr. Nida Padron DIFF REQNONormalThe [facility] HospitalComment on above: Performed By: #### CBC #### [facility] [address] [place] [address] Dr. Nida Munoz (RBC) [Entitic mass]28.1 ajQcskpb72.9-34.0The [facility] HospitalComment on above:Performed By: #### CBC #### [facility] [address] [place] [address] Dr. Nida Munoz (RBC) [Mass/Vol]31.2 g/lHYltxuu33.9-35.2The [facility] HospitalComment on above:Performed By: #### CBC #### [facility] [address] [place] [address] Dr. Nida Lui (RBC) [Entitic vol]90.0 cEJltgoc90.0-94.0The [facility] HospitalComment on above:Performed By: #### CBC #### [facility] [address] [place] [address] Dr. Nida Mueller #0.2 103/ulCritically low0.3-0.8The [facility] HospitalComment on above:Performed By: #### CBC #### [facility] [address] [place] [address] Dr. Nida Hickeyocytes/100 WBC (Bld)6.8 %Normal1.7-12.0[facility] Comment on above:Performed By: #### CBC #### [facility] [address] [place] [address] Dr. Nida Martinez #2.5 103/ulNormal1.4-6.5The [facility] HospitalComment on above:Performed By: #### CBC #### [facility] [address] [place] [address] Dr. Yilan ChangNeutrophils/100 WBC (Bld)72.3 %Irvlmt32.0-75.0The [facility] HospitalComment on above:Performed By: #### CBC #### [facility] [address] [place] [address] Dr. Nida Riley mean volume (Bld) [Entitic vol]10.7 fLNormal9.5-13.5The [facility] HospitalComment on above:Performed By: #### CBC #### [facility] [address] [place] [address] Dr. Nida CastilloPLT177 103/owUupcog174-315Ryt [facility] on above: Performed By: #### CBC #### [facility] [address] [place] [address] Dr. Nida CastilloRBC4.41 106/ulCritically low4.70-6.10The [facility] HospitalComselect [facility] on above:Performed By: #### CBC #### [facility] [address] [place] [address] Dr. Nida CastilloWBC3.5 103/ulCritically low4.0-11.0The [facility] on above:Performed By: #### CBC #### [facility] [address] [place] [address] Dr. Nida HoskinsID PROFILEon [id number]-HDL RATIO NORMSSelect Medical Specialty Hospital - CantonComselect specialty hospital-flint on above:Result Comment: 3.3 - 4.4 LOW RISK 4.4 - 7.1 AVERAGE RISK 7.1 - 11.0 MODERATE RISK >11.0 HIGH RISKPerformed By: #### LIPID, CMP #### [facility] [address] [place] [address] Dr. Nida CastilloCholesterol [Mass/Vol]204 mg/dLCritically high<=200The [facility] on above:Performed By: #### LIPID, CMP #### [facility] [address] [place] [address] Dr. Nida Gonzalezesterol in HDL [Mass/Vol]80 mg/dLCritically tfbh27-75Eaj [facility] on above:Performed By: #### LIPID, CMP #### [facility] [address] [address] [address] Nida Gonzalezesterol in LDL [Mass/Vol]112.8 mg/dLCincinnati Shriners HospitalComment on above:Performed By: #### LIPID, CMP #### [facility] [address] [place] [address] Dr. Nida Gonzalezesterreina.total/Cholesterol in HDL [Mass ratio]2.6 {ratio} NormalThe [facility] County HospitalComment on above:Performed By: #### LIPID, CMP #### [facility] [address] [place] [address] Dr. Nida Franklin NORMAL> or = 60 mg/dl - LOW CARDIOVASCULAR RISK <40 mg/dl - HIGH CARDIOVASCULAR RISKCincinnati Shriners HospitalComselect specialty hospital-[facility] on above:Performed By: #### LIPID, CMP #### [facility] [address] [place] [address] Dr. Nida Hardy CALC NORMALSEE BELOWCincinnati Shriners HospitalComment on above:Result Comment: <100 mg/dl OPTIMAL 100 - 129 mg/dl NEAR OR ABOVE OPTIMAL 130 - 159 mg/dl BORDERLINE HIGH 160 - 189 mg/dl HIGH >190 mg/dl VERY HIGH Performed By: #### LIPID, CMP #### [facility] [address] [place] [address] Dr. Nida CastilloTriglyceride [Mass/Vol]56 mg/dLNormal<=150[facility] Comment on above:Performed By: #### LIPID, CMP #### [facility] [address] [place] [address] Dr. Nida JoséLDL CALC11.2 mg/dLNoTwin City HospitalComment on above: Performed By: #### LIPID, CMP #### [facility] [address] [place] [address] Dr. Nida Olivier 14(COMP METB)on 82-99-7154Uvivltc [Mass/Vol]3.8 g/dLNormal 3.4-5.0[facility] HospitalComment on above:Performed By: #### LIPID, CMP #### [facility] [address] [address] [address] Nida CastilloAlbumin/Globulin [Mass ratio]1.1 {ratio}NormalThe [facility] Hospitalment on above:Performed By: #### LIPID, CMP #### [facility] [address] [address] [address] Nida CorreiaP [Catalytic activity/Vol]74 U/FDktiqn11-196Clo [facility] HospitalComment on above:Performed By: #### LIPID, CMP #### [facility] [address] [address] [address] Nida CorreiaT [Catalytic activity/Vol]23 U/IJsvefa56-58Rgj [facility] HospitalComment on above:Performed By: #### LIPID, CMP #### [facility] [address] [address] [address] Nida Nielsonon gap [Moles/Vol]8.9 mmol/LNormalThe [facility] HospitalComment on above:Performed By: #### LIPID, CMP #### [facility] [address] [address] [address] Nida CastilloAST [Catalytic activity/Vol]20 U/QNyssnj37-17Bez [facility] on above:Performed By: #### LIPID, CMP #### [facility] [address] [address] [address] Nida CastilloBilirubin [Mass/Vol]0.4 mg/dLNormal0.2-1.0The [facility] Comment on above:Performed By: #### LIPID, CMP #### [facility] [address] [address] [address] Nida CastilloCalcium [Mass/Vol]9.1 mg/dLNormal8.5-10.1The [facility] Comment on above:Performed By: #### LIPID, CMP #### [facility] [address] [address] [address] Nida CastilloChloride [Moles/Vol]102 mmol/USmimzh67-403Ldm [facility] Comment on above:Performed By: #### LIPID, CMP #### [facility] [address] [address] [address] Nida CastilloCO2 [Moles/Vol]34.4 mmol/LCritically high21.0-32.0The [facility] HospitalComment on above:Performed By: #### LIPID, CMP #### [facility] [address] [address] [address] Nida CastilloCreatinine [Mass/Vol]0.98 mg/dLNormal0.70-1.30The [facility] HospitalComment on above:Performed By: #### LIPID, CMP #### [facility] [address] [address] [address] Nida KiserGFR-AF MARSHALLESE>60Normal>=60The [facility] HospitalComment on above:Performed By: #### LIPID, CMP #### [facility] [address] [place] [address] Dr. Nida KiserGFR-NON AF MARSHALLESE>60Normal>=60The [facility] HospitalComment on above:Performed By: #### LIPID, CMP #### [facility] [address] [place] [address] Dr. Nida CastilloGlobulin (S) [Mass/Vol]3.4 g/dLNormalThe [facility] HospitalComment on above:Performed By: #### LIPID, CMP #### [facility] [address] [address] [address] Nida CastilloGlucose [Mass/Vol]88 mg/tTItsbya26-262Guw [facility] Comment on above:Performed By: #### LIPID, CMP #### [facility] [address] [address] [address] Nida CastilloPotassium [Moles/Vol]4.3 mmol/LNormal3.5-5.1The [facility] Comment on above:Performed By: #### LIPID, CMP #### [facility] [address] [address] [address] Nida CastilloProtein [Mass/Vol]7.2 g/dLNormal6.4-8.2The [facility] Comment on above:Performed By: #### LIPID, CMP #### [facility] [address] [address] [address] Nida CastilloSodium [Moles/Vol]141 mmol/USsuhbr908-682Kcy [facility] Comment on above:Performed By: #### LIPID, CMP #### [facility] [address] [address] [address] Nida CastilloUrea nitrogen [Mass/Vol]24.0 mg/dLCritically high7.0-18.0The [facility] HospitalComment on above:Performed By: #### LIPID, CMP #### [facility] [address] [address] [address] Nida Carmona nitrogen/Creatinine [Mass ratio]24.5 mg/mgNormalThe [facility] HospitalComment on above:Performed By: #### LIPID, CMP #### [facility] [address] [address] [address] Nida Castillo Vital Signs Date TimeVital SignValuePerforming DqtkwjhqgVmnlyitc06-49-5589 10:25-0400Body mass index (BMI) [Ratio]29.29 kg/p5Vwfuqro Radha-Nossek [employer] CUSTODIAN-DENTAL LABORATORY SUPERVISOR Work Phone: [phone] [place], [place] [address]Qobteckqxg99-92-1966 10:25-040Body dacyqg38.98 kgFelicia Radha-Nossek [employer] CUSTODIAN-DENTAL LABORATORY SUPERVISOR Work Phone: [phone] [place], [place] [address]Qsjneyvaae79-87-8323 10:25040Diastolic blood ndpnreou79 mm[Hg]Abi Radha-Nossek [employer] CUSTODIAN-DENTAL LABORATORY SUPERVISOR Work Phone: [phone] [place], [place] [address]Qtrjyhjzxk23-60-1979 10:25-040Heart rate71 /min Abi Radha-Nossek [employer] CUSTODIAN-DENTAL LABORATORY SUPERVISOR Work Phone: [phone] [place], [place] [address]Iqwiyfuysq30-45-7757 10:25-040Systolic blood knhbwekh694 mm[Hg]Abi Radha-Nossek [employer] CUSTODIAN-DENTAL LABORATORY SUPERVISOR Work Phone: [phone] [place], [place] [address]Jdmqukpnrk58-82-6329 11:26-0400Body xoackf747.34 cmBenjamin Ball DO Work Phone: [phone] [place], [place] 3010410-30-2025 11:26-0400 Body mass index (BMI) [Ratio]30.4 kg/a4Cjcuxayq Ball DO Work Phone: [phone] [place], [place] 3010410-30-2025 11:26-0400 Body ltytly34.88 kgBenjamin Ball DO Work Phone: [phone] [place], [place] 3010410-30-2025 11:26-0400 Diastolic blood emuqrrdm87 mm[Hg]Sammy Ball DO Work Phone: [phone] [place], [place] 3010410-30-2025 11:26-0400 Heart rate77 /minBenjamin Ball DO Work Phone: [phone] [place], [place] 3010410-30-2025 11:26-0400 Respiratory rate18 /minBenjamin Ball DO Work Phone: [phone] [place], [place] 3010410-30-2025 11:26-0400 SaO2% (BldA) [Mass fraction]97 %Sammy Ball DO Work Phone: [phone] [place], [place] 3010410-30-2025 11:26-0400 Systolic blood rzyhorpa928 mm[Hg]Sammy Ball DO Work Phone: [phone] [place], [place] 3010408-20-2025 14:38-0400 Body lrnjra8391.8 cmBenjamin Ball DO Work Phone: [phone] [place], [place] 3010408-20-2025 14:38-0400 Body mass index (BMI) [Ratio]0.3 kg/w7Gquokcvn Ball DO Work Phone: [phone] [place], [place] 3010408-20-2025 14:38-0400 Body iyfhrz27.42 kgBenjamin Ball DO Work Phone: [phone] [place], [place] 3010408-20-2025 14:38-0400 Diastolic blood leegonxq36 mm[Hg]Sammy Ball DO Work Phone: [phone] [place], [place] 3010408-20-2025 14:38-0400 Heart rate59 /minBenjamin Ball DO Work Phone: [phone]08-20-2025 14:38-0400 Respiratory rate16 /minBenjamin Ball DO Work Phone: [phone] [place], [place] 3010408-20-2025 14:38-0400 SaO2% (BldA) [Mass fraction]99 %Sammy Ball DO Work Phone: [phone])[address] [place], [place] 3010408-20-2025 14:38-0400 Systolic blood iajgzroe310 mm[Hg]Sammy Ball DO Work Phone: [phone])[address] [place], [place] 3010407-22-2025 12:10-0400 Body .34 cmBenjamin Ball DO Work Phone: [phone] [place], [place] 3010407-22-2025 12:10-0400 Body mass index (BMI) [Ratio]29.9 kg/z8Jckmncmt Ball DO Work Phone: [phone] [place], [place] 3010407-22-2025 12:10-0400 Body voqswj25.23 kgBenjamin Ball DO Work Phone: [phone])[address] [place], [place] 3010407-22-2025 12:10-0400 Diastolic blood wwuxdahb62 mm[Hg]Sammy Ball DO Work Phone: [phone])[address] [place], [place] 3010407-22-2025 12:10-0400 Heart rate66 /minBenjamin Ball DO Work Phone: [phone])[address] [place], [place] 3010407-22-2025 12:10-0400 Respiratory rate12 /minBenjamin Ball DO Work Phone: [phone])[facility] [place], [place] 12[address]107-22-2025 12:10-0400 Systolic blood egpysvkr238 mm[Hg]Sammy Ball DO Work Phone: [phone]05-19-2025 10:46-0400 Body azinss127.9 cmAngela Lowe PA Work Phone: [facility] HospitalFfuooeumvk38-33-4352 10:46-0400Body mass index (BMI) [Ratio]28.48 kg/c0Tgtxyu Lowe PA Work Phone: [facility] HospitalJzqdochcof64-49-6986 10:46-0400Body nbolwg96.25 kgAngela Lowe PA Work Phone: [facility] HospitalNhvuoczxqq37-07-9925 10:46-0400Diastolic blood focsltdi73 mm[Hg]Michelle Lowe PA Work Phone: [phone]-[facility] HospitalXwnrqydvsq22-21-5893 10:46-0400Heart rate76 /min Michelle Lowe PA Work Phone: [phone]-[facility] HospitalMfgfdfhher28-26-0395 10:46-5388UhX5% (BldA) [Mass fraction]95 %Michelle Lowe PA Work Phone: [facility] HospitalLkjlylaczt35-77-7592 10:46-0400Systolic blood ynqueyxj256 mm[Hg]Michelle Lowe PA Work Phone: [phone]-[facility] HospitalKvdsqeplet06-41-4282 09:51-0400Body mass index (BMI) [Ratio]28.89 kg/o2Xpwoncn Radha-Nossek [employer] CUSTODIAN-DENTAL LABORATORY SUPERVISOR Work Phone: [phone] [place], [place] 48[address]104-04-2025 09:51-0400Body hokfdo11.62 kgFelicia Radha-Nossek [employer] CUSTODIAN-DENTAL LABORATORY SUPERVISOR Work Phone: [phone]04-04-2025 09:51-0400Diastolic blood eujznfbe17 mm[Hg]Abi Radha-Nossek [employer]OC[employer] CUSTODIAN-DENTAL LABORATORY SUPERVISOR Work Phone: [phone] [place], [place] [address]Umpaymcgjs43-80-7455 09:51-0400Heart rate68 /min Abi Radha-Nossek [employer] CUSTODIAN-DENTAL LABORATORY SUPERVISOR Work Phone: [phone] [place], [place] [address]Hskkcepyqp56-30-5884 09:51-0400Systolic blood zaumaynt137 mm[Hg]Abi Radha-Nossek JOCKEY ROOM CUSTODIAN-DENTAL LABORATORY SUPERVISOR Work Phone: [facility] HospitalNnsrmeqbzb83-96-6934 10:25-0500Body cjdkny609.9 cmAngela Lowe PA Work Phone: [facility] HospitalTcigaevvpn32-85-2117 10:25-0500Body mass index (BMI) [Ratio]27.26 kg/b0Vcwrgh Lowe PA Work Phone: [facility] HospitalLsiswitxts60-43-6832 10:25-0500Body .17 kgAngela Lowe PA Work Phone: [facility] HospitalKdookhoike11-67-1217 10:25-0500Diastolic blood jchzqigu23 mm[Hg]Michelle Lowe PA Work Phone: [facility] HospitalGunllpkokc18-40-2893 10:25-0500Heart rate79 /min Michelle Lowe PA Work Phone: [facility] HospitalGeovaocmqx75-34-0884 10:25-0500Respiratory rate16 /minAngela Lowe PA Work Phone: [facility] HospitalLuxdsfxcgr07-99-1860 10:25-3820YlW6% (BldA) [Mass fraction]93 %Michelle Lowe PA Work Phone: [facility] HospitalKjathvylko75-62-1590 10:25-0500Systolic blood jjvvgyqa112 mm[Hg]Michelle Lowe PA Work Phone: [facility] HospitalXzmfjygbsi07-24-2571 11:05-0500Body vwerpa590.34 cmProm[facility]01-16-2025 11:05-0500Body mass index (BMI) [Ratio]27.9 kg/q2MxptutpltPromedica Memorial Hospital01-16-2025 11:05-0500Body .88 kgPromedica Memorial Hospital01-16-2025 11:05-0500Diastolic blood yffhmcuw42 mm[Hg][facility]01-16-2025 11:05-0500 Heart rate73 /[facility]01-16-2025 11:05-0500 Respiratory rate12 /[facility]01-16-2025 11:05-0500 Systolic blood dlhvxaag519 mm[Hg][facility]12-06-2024 10:31-0500Body mass index (BMI) [Ratio]26.58 kg/w2Qbhygfs Radha-Nossek JOCKEY ROOM CUSTODIAN-DENTAL LABORATORY SUPERVISOR Work Phone: 1(755)[address] [place], [place] 4865112-06-2024 10:31-0500Body .91 kgFelicia Radha-Nossek [employer]OC[employer] ROOM CUSTODIAN-DENTAL LABORATORY SUPERVISOR Work Phone: 1(844)[address] [place], [place] 4865112-06-2024 10:31-0500Diastolic blood idbeyjdl09 mm[Hg]Abi Garcia-Nossek JOCKEY ROOM CUSTODIAN-DENTAL LABORATORY SUPERVISOR Work Phone: 1(868)[address] [place], [place] 4865112-06-2024 10:31-0500Heart rate64 /min Abi Fletcheror-Nossek JOCKEY ROOM CUSTODIAN-DENTAL LABORATORY SUPERVISOR Work Phone: 1(392)[address] [place], [place] 4865112-06-2024 10:31-0500Systolic blood mm[Hg]Abi Garcia-Nossek JOCKEY ROOM CUSTODIAN-DENTAL LABORATORY SUPERVISOR Work Phone: 1(037)[address] [place], [place] 4865111-07-2024 10:58-0500Blood Pressure LocationJENNIFER MARYBETH [facility]11-07-2024 10:58-0500Body xqazlaemmbz82.6 [degF]SUSAN MARYBETH [facility]11-07-2024 10:58-0500Diastolic blood bcejbqun12 mm[Hg]SUSAN MARYBETH [facility]11-07-2024 10:58-0500Heart rate80 /minJENNIFER MARYBETH [facility] [place] [address]-07-2024 10:58-0500Respiratory rate16 /minJENNIFER MARYBETH [facility] [place] [address]-07-2024 10:58-0500Systolic blood zirisgzc948 mm[Hg]SUSAN MARYBETH [facility]11-05-2024 10:53-0500Body pmuxdy455.9 cmAyunior SEPULVEDA Work Phone: [facility]Nypzecsblt53-07-1131 10:53-0500Body mass index (BMI) [Ratio]25.77 kg/m2Precious SEPULVEDA Work Phone: [place] [address]Wwvcakraqc10-08-5923 10:53-0500Body ndekxd91.18 kgPrecious SEPULVEDA Work Phone: [place] [address]Tmjrulzgvq24-46-5663 10:53-0500Diastolic blood izcimvah50 mm[Hg]Precious SEPULVEDA Work Phone: [place] [address]Xfqloutwwt05-57-3825 10:53-0500Heart rate67 /min Precious SEPULVEDA Work Phone: [place] [address]Qzrkxgihgj09-43-0232 10:53-0500Respiratory rate16 /minPrecious SEPULVEDA Work Phone: [place] [address]Bdoicfwysy93-10-5338 10:53-5945UkX8% (BldA) [Mass fraction]94 %Precious SEPULVEDA Work Phone: [place] [address]Dxxuiwesdy54-09-8738 10:53-0500Systolic blood uoptkshl056 mm[Hg]Precious SEPULVEDA Work Phone: [facility] HospitalHxgxslfxot79-61-4977 11:42-0400Body plzkej168.34 cmPromedica Memorial Hospital10-15-2024 11:42-0400Body mass index (BMI) [Ratio]25.2 kg/f8ZliwxgugxPromedica Memorial Hospital10-15-2024 11:42-0400Body .27 kgPromedica Memorial Hospital10-15-2024 11:42-0400Diastolic blood mm[Hg][facility]10-15-2024 11:42-0400 Heart rate53 /[facility]10-15-2024 11:42-0400 Respiratory rate12 /[facility]10-15-2024 11:42-0400 Systolic blood mm[Hg][facility]09-09-2024 11:16-0400Body ulqksw297.9 cmAyunior Randall PA Work Phone: [facility] HospitalNquqspannq18-16-2946 11:16-0400Body mass index (BMI) [Ratio]24.01 kg/m2Precious Randall PA Work Phone: [facility] CenterMgikquniew00-82-2088 11:16-0400Body ezxuuy11.29 kgPrecious Randall PA Work Phone: [facility] HospitalKawfupjcfr41-33-2405 11:16-0400Diastolic blood kbcornwl86 mm[Hg]Precious Randall PA Work Phone: [facility] HospitalZhhoxncizv33-75-1734 11:16-0400Heart rate61 /min Precious SEPULVEDA Work Phone: [facility] CenterLoqrfaqegb12-64-4812 11:16-0400Respiratory rate16 /minPrecious SEPULVEDA Work Phone: [facility] HospitalTcjkqtcoal91-08-0670 11:16-1838FaY7% (BldA) [Mass fraction]97 %Precious SEPULVEDA Work Phone: [facility] HospitalQtldnvdduy53-09-2334 11:16-0400Systolic blood evfyvvbi080 mm[Hg]Precious Randall PA Work Phone: [facility] HospitalAfyylhnnuv06-94-2506 10:50-0400Body mass index (BMI) [Ratio]23.87 kg/s9Iioedmx Radha-Nossek JOCKEY ROOM CUSTODIAN-DENTAL LABORATORY SUPERVISOR Work Phone: [facility] HospitalLaweqhnqnh75-98-0249 10:50-0400Body idxpmd26.83 kgFelicia Radha-Nossek JOCKEY ROOM CUSTODIAN-DENTAL LABORATORY SUPERVISOR Work Phone: [facility] HospitalWloxaophvg50-65-9417 10:50-0400Diastolic blood itllesjp16 mm[Hg]Abi Radha-Nossek JOCKEY ROOM CUSTODIAN-DENTAL LABORATORY SUPERVISOR Work Phone: [facility] CenterPuklwygxei75-64-6994 10:50-0400Heart rate58 /min Abi Radha-Nossek JOCKEY ROOM CUSTODIAN-DENTAL LABORATORY SUPERVISOR Work Phone: [facility] HospitalIxyyytdjid21-64-9221 10:50-0400Systolic blood fyhyltfn627 mm[Hg]Abi Green JOCKEY ROOM CUSTODIAN-DENTAL LABORATORY SUPERVISOR Work Phone: [facility] HospitalXsnptgcaje32-35-0772 10:53-0400Blood Pressure LocationKathy Lue [facility]08-21-2024 10:53-0400Diastolic blood oaqbkqpd24 mm[Hg]Kayla Lue [facility]08-21-2024 10:53-0400Heart rate53 /minKathy Lue [facility]08-21-2024 10:53-0400Respiratory rate16 /minKathy Lue [facility]08-21-2024 10:53-0400Systolic blood dbkepnzi374 mm[Hg]Kayla Lue [facility]07-11-2024 10:30-0400Body dgleaa802.34 cmPromedica Memorial Hospital07-11-2024 10:30-0400Body mass index (BMI) [Ratio]23.3 kg/e2QduqbtgynPromedica Memorial Hospital07-11-2024 10:30-0400Body kidlyy07.97 kgPromedica Memorial Hospital07-11-2024 10:30-0400Diastolic blood mm[Hg] [facility]07-11-2024 10:30-0400Heart rate52 /[facility]07-11-2024 10:30-0400Respiratory rate12 /[facility]07-11-2024 10:30-0400Systolic blood wqhaqhoa329 mm[Hg] [facility]04-17-2024 15:25-0400Blood Pressure Location Giorgio GONZALES [facility] Surgery Cirpmodf61-20-5348 15:25-0400Diastolic blood iofhkega57 mm[Hg]Giorgio GONZALES [facility] Sclzjqly95-02-2239 15:25-0400Heart rate 70 /minMichael NILL [facility] Ajigqoxa56-19-9101 15:25-0400 Respiratory rate16 /minMichael NILL [facility] Ifmsqomq26-06-9658 15:25-0400Systolic blood ijfygcws694 mm[Hg]Giorgio GONZALES [facility]04-10-2024 11:03-0400Body gbykkf270.34 cmPromedica Memorial Hospital04-10-2024 11:03-0400Body mass index (BMI) [Ratio]21.7 kg/c2LhlmhvmglPromedica Memorial Hospital04-10-2024 11:03-0400Body .53 kgPromedica Memorial Hospital04-10-2024 11:03-0400Diastolic blood aluyfgzl58 mm[Hg][facility] 11-10-2023 11:03-0400Heart rate69 /[facility] 11-10-2023 11:03-0400Respiratory rate12 /[facility] 11-10-2023 11:03-0400Systolic blood njsetrya758 mm[Hg][facility]01-11-2024 11:30-0500Body lcerda384.34 cmBenjamin Ball Other [facility] Other 01-11-2024 11:30-0500Body mass index (BMI) [Ratio] 20.64 kg/w5Kdnjzdhi Ball Other [facility] Other 01-11-2024 11:30-0500Body .13 kgBenjamin Ball Other [facility] Other 01-11-2024 11:30-0500Diastolic blood bhrjwoyk17 mm[Hg] Sammy Ball Other [facility] Other 01-11-2024 11:30-0500Respiratory rate12 /minBenjamin Ball Other [facility] Other 01-11-2024 11:30-0500Systolic blood lkrjlool509 mm[Hg] Sammy Ball Other [facility] Other 11-30-2023 10:30-0500Body tqymha722.34 cmBenjamin Ball Other [facility] Other 11-30-2023 10:30-0500Body mass index (BMI) [Ratio]21 kg/r9Fcidmpmj Ball Other [facility] Other 11-30-2023 10:30-0500Body pnzkfe06.31 kgBenjamin Ball Other [facility] Other 11-30-2023 10:30-0500Diastolic blood whqwewpy11 mm[Hg] Sammy Ball Other [facility] Other 11-30-2023 10:30-0500Respiratory rate12 /minBenjamin Ball Other [facility] Other 11-30-2023 10:30-0500Systolic blood yamcbvrj293 mm[Hg] Sammy Ball Other [facility] Other 10-29-2023 16:36-0400Hourly Savanna MCCURDY [address]10-29-2023 16:36-0400 Promise to ReturnMbanefo OJUKWU [address] [place], [place] 5673410-29-2023 16:00-0400 Diastolic blood mlaapyri95 mm[Hg]Mbanefo OJUKWU [address] [place], [place] 5673410-29-2023 16:00-0400Heart rate45 /minMbanefo OJUKWU [address] [place], [place] 4882310-29-2023 16:00-3661ZeN0% (BldA) [Mass fraction]98 %Mbanefo OJUKWU [address] [place], [place] 5673410-29-2023 16:00-0400 Systolic blood gorqmzno144 mm[Hg]Mbanefo OJUKWU [address] [place], [place] 5673410-29-2023 15:36-0400 Hourly RoundingMbanefo OJUKWU [address] [place], [place] 5673410-29-2023 15:36-0400 Promise to ReturnMbanefo OJUKWU [address] [place], [place] 5673410-29-2023 14:07-0400 Hourly RoundingMbanefo OJUKWU [address]10-29-2023 14:07-0400 Promise to ReturnMbanefo OJUKWU [address] [place], [place] 5673410-29-2023 14:00-0400Body cdlwbozdtsi44.06 [degF]Mbanefo OJUKWU [address] [place], [place] 5673410-29-2023 12:00-0400Blood Pressure LocationMbanefo OJUKWU [address] [place], [place] 5673410-29-2023 12:00-0400Heart rate42 /minMbanefo OJUKWU [address] [place], [place] 5673410-29-2023 12:00-0400 Systolic blood myuurphf853 mm[Hg]Mbanefo OJUKWU [address] [place], [place] 5673410-29-2023 08:24-0400Heart rate36 /minMbanefo OJUKWU [address] [place], [place] 5673410-29-2023 08:24-0508JnY7% (BldA) [Mass fraction]99 %Mbanefo OJUKWU [address] [place], [place] 5673410-29-2023 08:14-0400Body lsoshedrvbl47.52 [degF]Mbanefo OJUKWU [address] [place], [place] 5673410-29-2023 08:14-0400 Diastolic blood dvzopjik42 mm[Hg]Mbanefo OJUKWU [address] [place], [place] 5673410-29-2023 08:14-0400Mean blood tvmlqzyl39 mm[Hg]Mbanefo OJUKWU [address] [place], [place] 5673410-29-2023 08:14-0400 Systolic blood lziflnrp378 mm[Hg]Mbanefo OJUKWU [address] [place], [place] 5673410-28-2023 20:00-0400Mean blood dawolywj725 mm[Hg]Mbanefo OJUKWU [address] [place], [place] 5673410-28-2023 16:18-0400Mean blood evtvolpu05 mm[Hg]Mbanefo OJUKWU [address] [place], [place] 5673410-28-2023 14:00-0400Blood Pressure LocationMbanefo OJUKWU [address] [place], [place] 5673410-28-2023 11:37-0400Mean blood xjywnkap122 mm[Hg]Mbanefo OJUKWU [address] [place], [place] 5673410-27-2023 20:00-0400Mean blood syybjtgj091 mm[Hg]Mbanefo OJUKWU [address] [place], [place] 5673410-27-2023 16:46-0400Body xwnigszswqg31.34 [degF]Mbanefo OJUKWU [address] [place], [place] 5673410-27-2023 10:31-0400Body ijhigsevmqe11.34 [degF]Mbanefo OJUKWU [address] [place], [place] 5673410-27-2023 02:51-0400 Respiratory rate18 /minMbanefo OJUKWU [address] [place], [place] 5673410-27-2023 00:45-0400 Respiratory rate17 /minMbanefo OJUKWU [address] [place], [place] 5673410-26-2023 20:05-0400 Respiratory rate17 /minMbanefo OJUKWU [address] [place], [place] 5673410-26-2023 17:15-0400Heart rate60 /minMbanefo OJUKWU [address] [place], [place] 5673410-26-2023 16:57-0400 Respiratory rate22 /minMbanefo OJUKWU [address] [place], [place] 5673410-26-2023 16:32-0400Mean blood eracdvaq09 mm[Hg]Mbanefo OJUKWU [address] [place], [place] 5673410-26-2023 16:32-0400 Respiratory rate16 /minMbanefo OJUKWU [address] [place], [place] 5673410-26-2023 15:25-0400 Respiratory rate14 /minMbanefo ONORMAKWU [facility]10-26-2023 13:39-2406SiM0% (BldA) [Mass fraction]98.8 %Baileeanefo OJUKWU [facility] Resp Auto JQ54-25-6070 13:16-0400Heart rate79 /min Mbanefo ONORMAKWU [facility]08-16-2023 10:35-0400Blood Pressure LocationKathy Lue [facility]08-16-2023 10:35-0400Diastolic blood iafjeirh66 mm[Hg]Kayla Lue [facility]08-16-2023 10:35-0400Heart rate74 /minKathy Lue [facility]08-16-2023 10:35-0400Systolic blood nmdaczpr056 mm[Hg]Kayla Lue [facility]05-31-2023 11:30-0400Body uuxafc251.34 cmBenjamin Ball Other [employer] Other 05-31-2023 11:30-0400Body mass index (BMI) [Ratio] 24.29 kg/d2Aspwbhmr Ball [facility] Other 05-31-2023 11:30-0400Body zzyiea34.02 kgBenjamin Ball Other [facility] Other 05-31-2023 11:30-0400Diastolic blood slzootpi77 mm[Hg] Sammy Ball Other [employer] Other 05-31-2023 11:30-0400Respiratory rate12 /minBenjamin Ball Other [facility] Other 05-31-2023 11:30-0400Systolic blood uqmuckwl551 mm[Hg] Sammy Willy Other [facility] Other 05-03-2023 08:17-0400Blood Pressure LocationKathy Lue [facility]05-03-2023 08:17-0400Diastolic blood yyqjyykf14 mm[Hg]Kayla Lue [facility]05-03-2023 08:17-0400Heart rate68 /minKathy Lue [facility]05-03-2023 08:17-0400Respiratory rate16 /minKathy Lue [facility]05-03-2023 08:17-0400Systolic blood pamaisvv813 mm[Hg]Kayla Lue [facility]02-28-2023 11:30-0500Body pfytyy770.34 cmBenjamin Ball Other [facility] Other 02-28-2023 11:30-0500Body mass index (BMI) [Ratio] 25.13 kg/a0Zhbtivuc Ball Other [facility] Other 02-28-2023 11:30-0500Body yvflzf05.74 kgBenjamin Ball Other [facility] Other 02-28-2023 11:30-0500Diastolic blood tumthdgl41 mm[Hg] Sammy Doll Other [facility] Other 02-28-2023 11:30-0500Respiratory rate12 /minBemichael Doll Other [facility] Other 02-28-2023 11:30-0500Systolic blood mm[Hg] Sammy Luxanova Other [facility] Other Encounters Encounter DateEncounter TypeCare ProviderFacilityStart: 82-75-1227vxwplgfnta Kathy M. LueFacility:[facility]Start: 47-06-0476sscqynllhnZhuok M. Lue Facility:[facility]Start: 06-01-2025 End: 88-36-9803Vvywhx tamaraheetAbi Barahona Radha-Nossek JOCKEY ROOM CUSTODIAN-DENTAL LABORATORY SUPERVISOR Work Phone: noMS [facility] HealthStart: 06-01-2025 End: 67-48-0151Zdqypo flowsheetAbi Barahona Radha-Nossek JOCKEY ROOM CUSTODIAN-DENTAL LABORATORY SUPERVISOR Work Phone: noMS [facility] HealthStart: 06-01-2025 End: 21-52-9297Awlztp outpatient visit 15 minutesFehema Barahona Radha-Nossek JOCKEY ROOM CUSTODIAN-DENTAL LABORATORY SUPERVISOR Work Phone: noMS [facility] HealthComment on above:Major depression, recurrent, chronic; Insomnia, unspecified typeStart: 06-01-2025 End: 14-39-4279vpwbyarakrXOSZWGX M RADHA-NOSSEKNot AvailableStart: 05-31-2025 End: 01-34-4768oytoqffwevNsnwkkca Ball DO Work Phone: -[facility] ClinicStart: 05-31-2025 End: 29-49-8093Mznqvec encounter procedureBenjesus Doll DO-[facility] Work Phone: Start: 03-21-2025 End: 44-38-4172utylbtylolOnedwipx Ball DO Work Phone: [facility] Work Phone: Start: 03-21-2025 End: 42-06-1384Dlquxfe encounter procedureSjosefina Martinez AXZX-YET-P-[facility] [place] Work Phone: Start: 03-19-2025 End: 74-95-0323QrgwopLuuqtek M Fior-Nossek JOCKEY ROOM CUSTODIAN-DENTAL LABORATORY SUPERVISOR Work Phone: NOHar[facility] HealthComment on above:Major depression, recurrent, chronicStart: 98-14-0794Riu-patient / Non-visitBenjesus [facility] Work Phone: Start: 02-20-2025 End: 17-71-1279zarjbpbmuwJzbyzihh Ball DO Work Phone: [facility] Work Phone: Start: 02-20-2025 End: 96-27-5638Hsrmect encounter procedureBenjesus Doll DO-[facility] Work Phone: Start: 02-20-2025 End: 23-51-6625Eclvzfh encounter statusBenjesus [facility] Healthtart: 01-17-2025 End: 24-03-0603fpnhwgrkkwMvzde M. LueFacility:EU BellevueStart: 01-17-2025 End: 57-79-4778Vrsxxqr encounter procedureKayla Torres [facility] start: 64-69-2648Sjj-patient / Non-visitSusan Bridges PA-C-[facility] Work Phone: Start: 12-18-2024 End: 59-02-0664Xemuoc flowsheetAngela Lowe PA Work Phone: aNA [place]Start: 12-18-2024 End: 10-32-2103Ftmaoe flowsheetAngela Lowe PA Work Phone: ana [place]Start: 12-18-2024 End: 38-58-6890Iehlmy outpatient visit 25 minutesAngela Lowe PA Work Phone: aNA [place]UEComment on above:Migraine without aura and without status migrainosus, not intractable (CMS/HCC) (Primary Dx); Myalgia; Neck pain; TremorStart: 12-18-2024 End: 60-79-3883thicsrbirqFILJJL LOWENot AvailableStart: 11-03-2024 End: 41-86-9376Lmlgem flowsheetFelicia M Radha-Nossek JOCKEY ROOM CUSTODIAN-DENTAL LABORATORY SUPERVISOR Work Phone: [facility] BHStart: 11-03-2024 End: 82-54-9771Gsqjny flowsheetFelicia M Radha-Nossek JOCKEY ROOM CUSTODIAN-DENTAL LABORATORY SUPERVISOR Work Phone: [facility] BHStart: 11-03-2024 End: 63-23-1653Stzfhw outpatient visit 15 minutesFelicia M Radha-Nossek JOCKEY ROOM CUSTODIAN-DENTAL LABORATORY SUPERVISOR Work Phone: [facility] BHComment on above:Major depression, recurrent, chronic (HCC) (CMS/HCC); Insomnia, unspecified typeStart: 11-03-2024 End: 06-14-7204brlbludkopAYNFMTA M RADHA-NOSSEKNot AvailableStart: 08-31-2024 End: 88-19-5114Mllmanrtw encounterMarti RODRIGUEZUSKYStart: 08-30-2024 End: 79-18-4225Huqpri flowsheetAngela Lowe PA Work Phone: ana NORWALKStart: 08-30-2024 End: 92-75-2923Dvckih flowsheetAngela Lowe PA Work Phone: aKARIE ESCALERAWALKStart: 08-30-2024 End: 16-07-3003Iazdqzcsl encounterAngela Lowe PA Work Phone: ana [place]UEStart: 08-30-2024 End: 72-36-8989Ypvtao outpatient visit 25 minutesAngela Lowe PA Work Phone: aKARIE ESCALERADARLENEomment on above:Myalgia (Primary Dx); Migraine without aura and without status migrainosus, not intractable (CMS/HCC); Tension headacheStart: 08-30-2024 End: 23-61-9332ymqstlzftmMMFAYT LOWENot AvailableStart: 08-17-2024 End: 85-86-4349lpvxdkvmzuJjrgvdtfsOhioHealth Hardin [facility] Hospital Work Phone: Start: 08-17-2024 End: 85-42-3724Vjbtwei encounter procedureCrawley Memorial Hospital Physician GroupGuernsey Memorial Hospital Work Phone: Start: 07-07-2024 End: 55-77-9413Reypvm flowsheetFelicia M Radha-Nossek JOCKEY ROOM CUSTODIAN-DENTAL LABORATORY SUPERVISOR Work Phone: [facility] BHStart: 07-07-2024 End: 03-66-8639Evsscg flowsheetFelicia M Radha-Nossek JOCKEY ROOM CUSTODIAN-DENTAL LABORATORY SUPERVISOR Work Phone: [facility] BHStart: 07-07-2024 End: 14-65-1450Eenmtv outpatient visit 15 minutesFelicia M Radha-Nossek JOCKEY ROOM CUSTODIAN-DENTAL LABORATORY SUPERVISOR Work Phone: noMS [facility] BHComment on above:Major depression, recurrent, chronic (HCC) (CMS/HCC); Insomnia, unspecified typeStart: 07-07-2024 End: 63-42-2085rsgavefnyhZLTPXIO M RADHA-NOSSEKNot AvailableStart: 06-08-2024 End: 25-07-2138sqinpgehugXZGNXAKP E PERRYFacility:EU BellevueStart: 06-08-2024 End: 09-83-4330Sphipez encounter procedureJENNIFER E MARYBETH [facility] Tom start: 06-06-2024 End: 47-81-0779Ehsync Lissette SEPULVEDA Work Phone: noms NE NEUROStart: 06-06-2024 End: 81-20-9278Wdodve Lissette SEPULVEDA Work Phone: noms NE NEUROStart: 06-06-2024 End: 93-52-5494Hefzdq outpatient visit 25 minutesPrecious SEPULVEDA Work Phone: noms NE NEUROComment on above:Migraine without aura and without status migrainosus, not intractable (CMS/HCC) (Primary Dx); Lumbar back pain; PANCHITO (obstructive sleep apnea); Neck pain; TremorStart: 06-06-2024 End: 70-33-2407tmcsvnjbjjXFKJ HILLSac-[facility] Hospital AvailableStart: 05-16-2024 End: 55-91-0726xcdqmmmwjnLpxwbtjmmOhioHealth Hardin Memorial Hospital Work Phone: Start: 05-16-2024 End: 17-03-7194Iavvabf encounter procedureCrawley Memorial Hospital Physician GroupGuernsey Memorial Hospital Work Phone: Start: 04-10-2024 End: 24-32-8003Nsmgjw Lissette SEPULVEDA Work Phone: noms NE NEUROStart: 04-10-2024 End: 58-87-6585Eghzjv Lissette SEPULVEDA Work Phone: noms NE NEUROStart: 04-10-2024 End: 64-44-4681Ocvbpx outpatient visit 15 minutesPrecious SEPULVEDA Work Phone: noms NE NEUROComment on above:Migraine without aura and without status migrainosus, not intractable (CMS/HCC) (Primary Dx); Tension headache; Tremor; Degenerative disc disease, lumbar; Lumbar back pain; Myalgia; Neck pain; HypersomniaStart: 03-24-2024 End: 20-30-6002Vngahg outpatient visit 15 minutesAbi Green JOCKEY ROOM CUSTODIAN-DENTAL LABORATORY SUPERVISOR Work Phone: [facility] BHComment on above:Major depression, recurrent, chronic (HCC) (CMS/HCC); Insomnia, unspecified typeStart: 03-22-2024 End: 18-84-8186neqoqemxdiVrfdb M. LueFacility:EU BellevueStart: 03-22-2024 End: 79-19-8212Gnuszlq encounter procedureKayla Torres [facility] start: 02-10-2024 End: 34-29-1408rdnavpgnvhIhbpjubfaOhioHealth Hardin Memorial Hospital Work Phone: Start: 02-10-2024 End: 83-11-8753Hwzhcimbf for general adult medical examination without abnormal findingsWilson Healthtart: 02-10-2024 End: 95-43-1557Cxmdtcc encounter procedureCrawley Memorial Hospital Physician GroupGuernsey Memorial Hospital Work Phone: Start: 66-97-4146Pbeajwl encounter statusWilson Healthtart: 90-67-6225Ugx-patient / Non-visitCrawley Memorial Hospital Physician [facility] Work Phone: Start: 11-17-2023 End: 22-24-1141Ppxhqwe encounter procedureMichael R NILL General Surgery Nill/[facility] [place] Start: 11-10-2023 End: 99-10-8274fvzadvslcbWbjeuzeiiSt. Rita's Hospital Work Phone: Start: 11-10-2023 End: 89-65-4545Ltefffm encounter procedureCrawley Memorial Hospital Physician GroupGuernsey Memorial Hospital Work Phone: Start: 54-43-0350Oes-patient / Non-visitCrawley [facility] Phys[facility] GroupWill[facility] Work Phone: Start: 08-30-2023 End: 96-09-4137dmwlpuezqoEzfvthsg Ball Other [employer] Other Start: 34-03-8091Kwoermnfn encounterBenjamin BallFPG [facility] ClinicStart: 08-23-2023 End: 42-02-5936fvwhjytzkqKonrixpo Ball Other [employer] Other Start: 19-63-1604Vzgyiasym encounterBenjamin BallFPG [facility] ClinicStart: 08-12-2023 End: 94-12-2617gqqpobdbowHtenxnks Ball Other [employer] Other Start: 53-01-9703Xprwxa outpatient visit 25 minutes Sammy [facility]FP[facility] ClinicStart: 08-10-2023 End: 05-45-3421pcmnvgtnojErzuonqn [facility] Other Start: 90-34-8865Uqkdnnzdi encounterBenjamin BallFP[facility] ClinicStart: 07-27-2023 End: 49-68-4844sdeyikafvrZwawmegi Ball Other [address] [employer] Other Start: 26-83-7343Uliablkmx encounterBenjamin BallFP[facility] ClinicStart: 07-12-2023 End: 02-57-9433ptojcpsimiBhhpkgyj Ball Other [address] [employer] Other Start: 42-48-4811Gypfqwjge encounterBenjamin BallFP[facility] ClinicStart: 07-09-2023 End: 24-42-5298ejlcckphfwBtduoxny Ball Other [employer] Other Start: 07-91-0566Wmvpruxzc encounterBenjamin BallFP[facility] ClinicStart: 07-07-2023 End: 53-74-7724frasorluvcVrpcgpxj Ball Other [employer] Other Start: 77-67-1207Snlykbrxf encounterBenjamin BallFP[facility] ClinicStart: 07-01-2023 End: 74-87-0154wcfqduddmzWdrxmvfj [facility] Other Start: 98-52-5517Wpehsb outpatient visit 25 minutes Sammy [facility]FP[facility] ClinicStart: 73-42-2696Snxaqirpe encounterBenjamin [facility]FP[facility] ClinicStart: 06-29-2023 End: 56-38-8588yilupqnyyjDpufxgoj Ball [facility] Other Start: 88-84-3770Ymdirhyuy encounterBenjamin BallFP[facility] ClinicStart: 06-04-2023 End: 42-46-7937byekzyrhfxSscprxcl Ball Other [facility] Other Start: 43-59-2697Ewispezxa encounterBenjamin BallFP[facility] ClinicStart: 05-29-2023 End: 84-21-6983phmlmipivvLjtbjwan [facility] Other [facility] Other Start: 80-72-5274Qqatsjzgp encounterBenjamin BallFPG Ball Medical ClinicStart: 05-27-2023 End: 35-12-6107Hpnlggeafq and management of inpatientMbanefo OBRIDGETWU [facility] Start: 04-09-2023 End: 23-83-5057sdyiiudfxeFvfivkzd Ball Other noNumber 100 [address] Other Start: 05-73-5050Jynkrwhjw encounterBenjamin BallFPG [facility] Medical ClinicStart: 03-17-2023 End: 33-72-3668Fixqjww encounter procedureKayla Torres [facility] Start: 03-17-2023 End: 70-97-0030Hqromdy encounter procedureKayla Torres [facility] [place] start: 03-11-2023 End: 44-03-4250rgzvjdtemeAfbupdxk Ball Other noNumber 100 viseto Other Start: 42-73-7973Lnvqaswug encounterBenjamin BallFPG [facility] ClinicStart: 02-09-2023 End: 39-43-9702fhwstasjlhSavjubcj Ball Other noShopIt Other Start: 43-78-2787Uxzaigtrh encounterBenjamin BallFPG [facility] ClinicStart: 01-05-2023 End: 03-14-2170ywxlkvliagVskjllwu Ball Other noNumber 100 viseto Other Start: 12-28-9845Mppkoqlgd encounterBenjamin BallFPG [facility] Medical ClinicStart: 12-30-2022 End: 05-28-4187rksbjdvyplCtaxraty Ball Other noShopIt Other Start: 06-52-7512Cmhshpboc for general adult medical examination without abnormal findingsBenjamin BallFPG [facility] Medical ClinicStart: 20-33-6968Tcgdaozk preventive med est patient 40-64yrsBenjamin BallFPG [facility] Medical ClinicStart: 12-03-2022 End: 76-52-0671qmdtrjnmcuIzkoivza Ball Other noShopIt Other Start: 78-71-8279Opnmpnqhf encounterBenjamin BallFPG [facility] ClinicStart: 12-02-2022 End: 63-55-4119Jrdhdxu encounter Chintanedith BarahonaElis Brian [facility] start: 11-30-2022 End: 07-60-3068ftiyuncqzeLYXLN M LUE .Facility:Y8Uesam: 11-05-2022 End: 37-32-4322tmwlntenxuSsewlxzn Ball Other [employer]It Other Start: 03-45-7618Rkkxvcmzw encounterBenjamin BallFPG [facility] Medical ClinicStart: 10-30-2022 End: 79-79-0391dkcjeselqtDugehatx Ball Other [employer] Other Start: 56-61-1384Lojejofpc encounterBenjamin BallFPG [facility] ClinicStart: 09-30-2022 End: 18-24-1542ujmpqvjyvbZiufwbbv Ball Other [employer]It Other Start: 63-52-1725Zgzqkgsyp encounterBenjamin BallFPG [facility] Medical ClinicStart: 09-29-2022 End: 51-38-9376sysitjrdmcBdlpxmtm Ball Other [employer]ShopIt Other Start: 19-41-5411Lqtpzw outpatient visit 25 minutes Sammy BallFPG [facility] Medical ClinicStart: 27-89-1540Ltomzueze for general adult medical examination without abnormal findingsNJESUS DOLLMercy Health [facility] Start: 12-10-2021 End: 75-71-9572vydxncmqgwIKVDFIDS BALLFacility:S6Itfym: 12-10-2021 End: 13-60-2987Rcvhdayqq for general adult medical examination without abnormal findingsSAMYM DOLLFacility:S1Kzbru: 90-57-7176Mbryz health examination Sammy Doll Other [place] Other Procedures DateProcedureProcedure DetailPerforming ClinicianStart: 24-18-8327Quuaduakkzv Abi Green JOCKEY ROOM CUSTODIAN-DENTAL LABORATORY SUPERVISOR Work Phone: Start: 60-13-8421YktaqhmhpwuOdvuf Lue Start: 25-48-9732PaczhxrtgxaqktmgbdssuhulkgRsvzh Lue Start: 11-93-6066YGU screeningKATHY LUE .Comment on above:Performed By: #### PSAD #### [facility] [address] [place] [address] Dr. Nida CastilloStart: 42-31-8731Yagfajd retropubic prostatectomyKathy Lue Start: 48-02-2059Wgrdhdvpohw biopsy of prostateKathy Lue Start: 55-34-3858Nohwpledb for malignant neoplasm of prostateSammy Doll Other Start: 11-84-5513Ekdjcrw examination of patient Sammy Doll Other Start: 17-24-1316GxemupmxffbVsofrgd NILL Start: 70-91-3398LjjmysfuppdcdqsvmioivhdrgzQuuyczz NILL Start: 11-68-9485Ssreqeubwpbkigvx procedureKathy Lue Biopsy of soft palateMichael NILL ColonoscopyKathy Lue Decompression of median nerveMichael NILL TonsillectomyKathy Lue Plan of Treatment DateCare ActivityDetailAuthorStart: 66-01-9959Brrawkdpk for malignant neoplasm of colonNOMS HealthcareStart: 06-01-2025 End: 97-18-1334Nlbunqi encounter /31/2025 10:30 AM EDT Office Visit DONG [facility] [address] [place] [address] Abi Green, [facility] [address] [address] Sha [facility] ScrantonComment on above:ArrivedStart: 05-18-2025 End: 00-60-5541Fegfvcc encounter bqtobpoww44/17/2025 9:00 AM EDT Office Visit DONG [facility] [address] [place] [address] Abi Green, JOCKEY ROOM CUSTODIANSSM REHAB 112 [facility] [address] [place] [address] NOMRavi [facility] HealthStart: 60-51-5129DSYKK-19 Vaccine ( season)COVID-19 Vaccine ( season)NOM HealthcareStart: 03-66-7400Dsarzsyna vaccinationInfluenza Vaccine (#1)NOM HealthcareStart: 03-21-2025 End: 49-12-6177Tdnvcdh encounter rvlloibwr95/20/2025 2:20 PM EDT Office Visit VI SANTOS [address] [place] [address] Tawny Martinez NP [address] [place] [address] VI MOREVUEStart: 02-16-2025 End: 13-22-4883Vtgasnf encounter wkhydnbov34/18/2025 10:30 AM EDT Office Visit NOMRavi [facility] [address] [place] [address] Abi Johnson, JOCKEY ROOM CUSTODIAN-DENTAL LABORATORY SUPERVISOR [address] [facility] [place] [address] NOMS SWS BHStart: 12-18-2024 End: 42-49-2597Zmspjnu encounter procedureANA NORWALKComment on above:Arrived Start: 11-03-2024 End: 16-36-4513Wqyornh encounter procedureNOMS SWS BHComment on above:Arrived Start: 08-30-2024 End: 08-41-9564Lnpwoud encounter procedureNOMS NE NEUROComment on above:Arrived Start: 07-07-2024 End: 35-02-6324Tfhmkai encounter procedureNOMS SWS BHComment on above:Arrived Start: 06-06-2024 End: 81-22-6345Oijlree encounter crdbufxts32/05/2024 11:00 AM EST Office Visit [facility] [address] [place] [address] Precious Randall PA [address] [place] [address] ArrivedNOMS NE NEUROComment on above:ArrivedStart: 06-05-2024 End: 95-94-0479Swdoyil encounter vhrmnryji78/04/2024 11:20 AM EST Office Visit [facility] [address] [place] [address] Precious Randall PA [address] [place] [address] N[facility]S NE NEUROStart: 04-10-2024 End: 04-04-0903Xocmwwg encounter procedureNOMS NE NEUROComment on above:Arrived Start: 76-33-6772Tphrtcxma vaccinationInfluenza Vaccine (#1)[facility] Start: 42-19-5878Uxsesgmohupe Vaccine: 65+ Years (1 of 1 - PCV)Pneumococcal Vaccine: 65+ Years (1 of 1 - PCV)[facility]OMS HealthcareStart: 84-79-3155Vsraknmrigdf Vaccine: 65+ Years (1 of 1 - PCV)Pneumococcal Vaccine: 65+ Years (1 of 1 - PCV) NOM HealthcareStart: 06-93-4806FFeW/Tdap/Td Vaccines (1 - Tdap)DTaP/Tdap/Td Vaccines (1 - Tdap)[facility] HealthcareStart: 63-65-4252ITE Vaccines (1 of 1 - Standard series)MMR Vaccines (1 of 1 - Standard series)[facility] HealthcareStart: 14-98-7653Fvundddlh for malignant neoplasm of colonNOMS HealthcareComprehensive metabolic 2000 panel - Serum or PlasmaPromedica Memorial HospitalPatient EducationLow back pain in adultsUniversity Hospitals Portage Medical Center Work Phone: XR Lumbar spine ViewsViera Hospital Immunizations Immunization DateImmunizationNotesCare TpadsrytDzlxeifp23-72-8463aysxoskxt virus vaccine, unspecified formulationKathy Lue [facility]10-15-2024influenza, high dose seasonal, preservative-freePromedica Memorial Hospital12-13-2022COVID-19 Pfizer (Pediatric)Sammy Doll Other [facility]12-13-2022influenza virus vaccine, split virus (incl. purified surface antigen)Sammy Doll Other [place] viseto Other [id number] virus vaccine, unspecified formulationKathy Lue [facility]12-13-2022influenza, injectable, quadrivalent, preservative freeBenjesus Doll Other [facility]12-13-2022SARS-CoV-2 (COVID-19) mRNAMUL.ORD!p56949Ngzsg Lue [facility]12-14-2021SARS-CoV-2 (COVID-19) mRNA-1273 vaccineKathy Lue [facility]12-04-2021SARS-CoV-2 (COVID-19) mRNA-1273 vaccineKathy Lue [facility]c HealthComment on above:Result Comment: cgsqpip76-97-3206wdnvbbktf virus vaccine, split virus (incl. purified surface antigen)Sammy Doll Other noShopIt Other [id number] virus vaccine, unspecified formulationPromedica Memorial Hospital03-08-2021SARS-CoV-2 (COVID-19) Ad26 vaccine, recombinantKathy Lue [facility]10-09-2020influenza virus vaccine, unspecified formulationKathy Lue [facility]10-09-2020influenza, injectable, quadrivalent, preservative free [facility]10-14-2019influenza virus vaccine, unspecified formulationKathy Lue [facility]10-14-2019influenza, seasonal, injectablePromedica Memorial Hospital10-11-2019influenza virus vaccine, split virus (incl. purified surface antigen)Sammy Doll Other noShopIt Other [id number] virus vaccine, unspecified formulationPromedica Memorial Hospital01-11-2019influenza virus vaccine, unspecified formulationKathy Lue [facility]01-11-2019Influenza, injectable, Madin Suzanne Canine Kidney, preservative free, quadrivalentPromedica Memorial Hospital10-20-2017influenza virus vaccine, split virus (incl. purified surface antigen)Sammy Willy Other [place] vis[place] Other [id number] virus vaccine, unspecified formulationPromedica Memorial Hospital10-20-2017influenza, unspecified formulationKathy Lue [facility]10-20-2016tetanus and diphtheria toxoids, adsorbed, preservative free, for adult use (5 Lf of tetanus toxoid and 2 Lf of diphtheria toxoid)[facility]10-20-2016tetanus toxoid, reduced diphtheria toxoid, and acellular pertussis vaccine, adsorbedKathy Lue [facility]10-23-2015influenza virus vaccine, unspecified formulationKathy Lue [facility]10-23-2015influenza, seasonal, injectablePromedica Memorial Hospital Payers DatePayer CategoryPayerPolicy [id number] Health Insurance [id number] (Managed Care)[facility] MEDICARE ADVANTAGE [id number] Health [id number] Cross Blue [id number]fDPMR BCBS [id number] 2022-[facility] [phone] [address] [place] [address] [id number] Cross Blue Shield [id number] 2017Medicare [id number] [id number] 1958 [id number] 2.0.1.440447.3.57[id number] 2.0.1.307900.3.57[id number] 2.0.1.896623.3.57[id number] 2.0.1.818212.3.57[id number] 2.160.1.926215.3.57[id number] 2.160.1.756708.3.57[id number] 2.160.1.447711.3.57[id number] 2.160.1.488574.3.57[id number] 2.16.840.1.992176.3.57[id number] 2.16.840.1.218483.3.579.2.[id number] 2.16.840.1.006657.3.579.[id number] 2..840.1.169178.3.57[id number] 2.16.840.1.766836.3.579.2.1259 Social History DateTypeDetailFacilityStart: 04-10-2024 End: 27-48-0132Vpu [facility] At [facility]tart: 12-02-2022 End: 72-28-9453Dkszxma smoking statusEx-smoker (finding)[facility] HospitalueStart: 10-14-2022 End: 16-50-2720Jnmldus smoking statusNeverExecutive Urology of [facility] Memorialtart: 12-12-2022 End: 83-55-7784Kyudqmi smoking status NHISNever smoked tobacco (finding) [facility]htart: 88-57-3164Vto Assigned At [facility] Foundationtart: 47-20-7331Vfawpao use and exposure Smokeless tobacco non-userNOMS HealthcareStart: 04-10-2024 End: 24-23-5393Dlvwwecor beverage intakeEx-drinker (finding)[facility] Start: 04-10-2024 End: 90-08-4006Pfkfpxq of Social functionNOMS HealthcareStart: 01-21-2023 Spyhhjpnh52LLVA HealthcareStart: 00-55-9364Nibctts CommentCaffeine: 1-2 cups/day coffeeNOMS HealthcareStart: 81-33-0902Mub assigned at birthNot on fileNOMS HealthcareStart: 56-26-9446Cqoqci identityIdentifies as male gender (finding) [facility]OM[facility] HealthcareStart: 11-13-2009 End: 82-74-1547HxxYrgd (finding)[facility] Healthexual OrientationExecutive [facility]rology of [facility] Functional Status HubwGeudeobunhIjejwaZntqkkiz40-96-8729Mmzdvkovnxb anxiety disorder 7 item (RASHMI-7)[facility] HospitalQyhlguofdp16-06-9313Yeksozb Health Questionnaire 2 item (PHQ-2) [Reported][facility] HospitalKxiomptskd72-92-5298Egwtxxc Health Questionnaire (PHQ) [Reported] [facility] HospitalXoxjqqjena71-98-0967BCD-7 quick depression assessment panel [Reported.PHQ] [facility] HospitalZadnuurihm07-47-9098Siwencloin StatusN/AExec[facility]08-21-2024Functional StatusN/AExec[facility]04-17-2024Functional StatusN/AGeneral Surgery Iurkxnva91-21-9715Pzmtavuxhe StatusYeAultman Hospital 74-02-2395Dgsrqiajma StatusMercy Health St[facility]08-16-2023Functional StatusN/AExec[facility]05-03-2023 Functional StatusN/AExec[facility] Clinical Notes 09-29-2022 to 06-01-2025 Note Date & JlgoCwynNiudipfe53-95-3994 History of Present illness Narrative* Abi Green, JOCKEY ROOM CUSTODIAN-DENTAL LABORATORY SUPERVISOR - 06/01/2025 10:30 AM EDT Images from the original note were not included. Yeni Holman is a 64 y.o. male presents [...] 2013 Degenerative disc disease, cervical 08/18/2016 Depression (CMS/[facility]) Disturbance of skin sensation 2013 Diverticulitis Fibromyalgia 08/24/2016 GERD (gastroesophageal reflux disease) Headache Headache 08/18/2016 High cholesterol (CMS/HCC) History of sleep disorder Hyperlipidemia (CMS/HCC) Hypertension (CMS/HCC) Lumbosacral radiculopathy 01/12/2013 Major depression, recurrent, chronic (HCC) (CMS/[facility]) Malaise and fatigue 2013 Migraine (CMS/HCC) 11/23/2017 Muscle spasm 11/23/2017 Myalgia 11/23/2017 Neck pain 11/23/2017 Pain in limb 2013 Prostate cancer (CMS/[facility]) SCCA (squamous cell carcinoma) of skin History of Lt Tonsillar SCCA + PET SCAN for rt tonsil Shingles Spinal stenosis, lumbar region without neurogenic claudication 08/18/2016 Syndrome affecting cervical region 08/18/2016 Tension headache 11/23/2017 Throat cancer ([facility]) (Lt Tonsillar) Viral warts Viral warts in nostrils ALLERGIES: No Known Allergies SURGICAL HISTORY: Past Surgical History: Procedure Laterality Date CARPAL TUNNEL RELEASE Left 2014 NOSE SURGERY warts removed PALATE BIOPSY 01/28/2009 Soft Palate Bx Squamous hyperplasia RADICAL PROSTATECTOMY [facility] [place] [place] 08/2020 TONSILLECTOMY Right 07/03/2008 TONSILLECTOMY Left 05/01/2008 [...] Follow up 3 months documented in this encounterSac-Osage HospitalNuecxuaydt88-99-5695 Evaluation note* Diagnosis Onset Date Resolution Status Admit Date DDD (degenerative disc disease), lumbar chronicAugust 2024 2:02pmLow back painchronicAugust 2024 2:02pm Migraine without aura and without status migrainosus, not intractablechronic March 21, 2025 2:02pmModerate obstructive sleep apneachronicA2024 2:02pmNeck painchronicA2024 2:02pmTremorchronicAugust 2024 2:02pmAnemiaacuteOctober 2024 11:15amConstipationacuteOctober 2024 11:15amGastroesophageal reflux disease with esophagitis without hemorrhageacute October 2024 11:15amHigh cholesterolacuteOctober 2024 11:15am HypertensionacuteOctober 2024 11:15amLumbar spondylosisacuteOctober 2024 11:15amMild episode of recurrent major depressive disorderacuteOctober 2024 11:15amOpiate analgesic use agreement existsacuteOctober 2024 11:15amOSA (obstructive sleep apnea)acuteOctober 2024 11:15amProstate canceracuteOctober 2024 11:15amLow back painchronicOctober 2024 11:15am [facility] Work Phone: [phone] 541-941808-18-2025 Telephone encounter Note* Telephone Encounter - Adri Young - 03/19/2025 10:54 AM EDT Patient requesting a refill on Trintellix sent to [facility] pharmacy. Patient has a follow up scheduled for 05/18. [facility] HospitalYunuzarymm47-19-6005 Miscellaneous Notes* Telephone Encounter - Adri Young - 03/19/2025 10:54 AM EDT Patient requesting a refill on Trintellix sent to [facility] pharmacy. Patient has a follow up scheduled for 05/18. documented in this encounterSac-Osage HospitalKoftthnrnp48-71-2416 Evaluation note* Diagnosis Onset Date Resolution Status Admit Date Anemia acuteJuly 2024 11:28amConstipationacuteJuly 2024 11:28am Gastroesophageal reflux disease with esophagitis without hemorrhageacuteJuly 2024 11:28amHigh cholesterolacuteJuly 2024 11:28amHypertensionacute Brenda 2024 11:28amLumbar spondylosisacuteJuly 2024 11:28amMild episode of recurrent major depressive disorderacuteJuly 2024 11:28amOpiate analgesic use agreement existsacuteJuly 2024 11:28amOSA (obstructive sleep apnea)acuteJuly 2024 11:28amProstate canceracuteJuly 2024 11:28amWellness examinationacuteJuly 2024 11:28am [facility] Work Phone: [phone] 197-966606-18-2025 Hospital Discharge instructions Patient Education 01/17/2025 09:55:43 Prostate Cancer Prostate Cancer The prostate is a small gland that produces fluid that makes up semen (seminal fluid). It is located below the bladder in men, in front of the rectum. Prostate cancer is the abnormal growth of cells in the prostate gland. What are the causes? The exact cause of this condition is not known. What increases the risk? You are more likely to develop this condition if: You are 65 years of age or older. You have a family history of prostate cancer. You have a family history of breast and ovarian cancer. You have genes that are passed from parent to child (inherited), such as BRCA1 and BRCA2. You have Hawk syndrome. men and men of descent are diagnosed with prostate cancer at higher rates than other men. The reasons for this are not well understood and are likely due to a combination of genetic and environmental factors. What are the signs or symptoms? Symptoms of this condition include: Problems with urination. This may include: ?A weak or interrupted flow of urine. ?Trouble starting or stopping urination. ?Trouble emptying the bladder all the way. ?The need to urinate more often, especially at night. Blood in urine or semen. Persistent pain or discomfort in the lower back, lower abdomen, or hips. Trouble getting an erection. Weakness or numbness in the legs or feet. How is this diagnosed? This condition can be diagnosed with: A digital rectal exam. For this exam, a health care provider inserts a gloved finger into the rectum to feel the prostate gland. A blood test called a prostate-specific antigen (PSA) test. A procedure in which a sample of tissue is taken from the prostate and checked under a microscope (prostate biopsy). An imaging test called transrectal ultrasonography. Once the condition is diagnosed, tests will be done to determine how far the cancer has spread. This is called staging the cancer. Staging may involve imaging tests, such as a bone scan, CT scan, PETscan, or MRI. Stages of prostate cancer The stages of prostate cancer are as follows: Stage 1 (I). At this stage, the cancer is found in the prostate only. The cancer is not visible on imaging tests, and it is usually found by accident, such as during prostate surgery. Stage 2 (II). At this stage, the cancer is more advanced than it is in stage 1, but the cancer has not spread outside the prostate. Stage 3 (III). At this stage, the cancer has spread beyond the outer layer of the prostate to nearby tissues. The cancer may be found in the seminal vesicles, which are near the bladder and the prostate. Stage 4 (IV). At this stage, the cancer has spread to other parts of the body, such as the lymph nodes, bones, bladder, rectum, liver, or lungs. Prostate cancer grading Prostate cancer is also graded according to how the cancer cells look under a microscope. This is called the Kael score and the total score can range from 6 10, indicating how likely it is that the cancer will spread (metastasize) to other parts of the body. The higher the score, the greater thelikelihood that the cancer will spread. [place] 6 or lower: This indicates that the cancer cells look similar to normal prostate cells (well differentiated). Kael 7: This indicates that the cancer cells look somewhat similar to normal prostate cells (moderately differentiated). Kael 8, 9, or 10: This indicates that the cancer cells look very different than normal prostate cells (poorly differentiated). How is this treated? Treatment for this condition depends on several factors, including the stage of the cancer, your age, personal preferences, and your overall health. Talk with your health care provider about treatment options that are recommended for you. Common treatments include: Observation for early stage prostate cancer (active surveillance). This involves having exams, blood tests, and in some cases, more biopsies. For some men, this is the only treatment needed. Surgery. Types of surgeries include: ?Open surgery (radical prostatectomy). In this surgery, a larger incision is made to remove the prostate. ?A laparoscopic radical prostatectomy. This is a surgery to remove the prostate and lymph nodes through several small incisions. It is often referred to as a minimally invasive surgery. ?A robotic radical prostatectomy. This is laparoscopic surgery to remove the prostate and lymph nodes with the help of robotic arms that are controlled by the surgeon. ?Cryoablation. This is surgery to freeze and destroy cancer cells. Radiation treatment. Types of radiation treatment include: ?External beam radiation. This type aims beams of radiation from outside the body at the prostate to destroy cancerous cells. ?Brachytherapy. This type uses radioactive needles, seeds, wires, or tubes that are implanted into the prostate gland. Like external beam radiation, brachytherapy destroys cancerous cells. An advantage is that this type of radiation limits the damage to surrounding tissue and has fewer side effects. Chemotherapy. This treatment kills cancer cells or stops them from multiplying. It kills both cancer cells and normal cells. Targeted therapy. This treatment uses medicines to kill cancer cells without damaging normal cells. Hormone treatment. This treatment involves taking medicines that act on testosterone, one of the male hormones, by: ?Stopping your body from producing testosterone. ?Blocking testosterone from reaching cancer cells. Follow these instructions at home: Lifestyle Do not use any products that contain nicotine or tobacco. These products include cigarettes, chewing tobacco, and vaping devices, such as e-cigarettes. If you need help quitting, ask your health careprovider. Eat a healthy diet. To do this: ?Eat foods that are high in fiber. These include beans, whole grains, and fresh fruits and vegetables. ?Limit foods that are high in fat and sugar. These include fried or sweet foods. Treatment for prostate cancer may affect sexual function. If you have a partner, continue to have intimate moments. This may include touching, holding, hugging, and caressing your partner. Get plenty of sleep. Consider joining a support group for men who have prostate cancer. Meeting with a support group mayhelp you learn to manage the stress of having cancer. General instructions Take vqev-ift-yuvppgw and prescription medicines only as told by your health care provider. If you have to go to the hospital, notify your cancer specialist (oncologist). Keep all follow-up visits. This is important. Where to find more information [employer]: www.cancer.org [employer]: www.cancer.net National Cancer [place]: www.cancer.gov Contact a health care provider if: You have new or increasing trouble urinating. You have new or increasing blood in your urine. You have new or increasing pain in your hips, back, or chest. Get help right away if: You have weakness or numbness in your legs. You cannot control urination or your bowel movements (incontinence). You have chills or a fever. Summary The prostate is a small gland that is involved in the production of semen. It is located below a man's bladder, in front of the rectum. Prostate cancer is the abnormal growth of cells in the prostate gland. Treatment for this condition depends on the stage of the cancer, your age, personal preferences, and your overall health. Talk with your health care provider about treatment options that are recommended for you. Consider joining a support group for men who have prostate cancer. Meeting with a support group mayhelp you learn to manage the stress of having cancer. This information is not intended to replace advice given to you by your health care provider. Make sure you discuss any questions you have with your health care provider. Document Revised: 10/15/2021 Document Reviewed: 10/15/2021 [employer] Patient Education 2023 [employer]. Follow Up Care 06/08/2024 11:35:58 With:Brian LUGO, PEDRO Bernal, URO Address: When: Unknown [facility] 06-18-2025 NotePatient Education Oncology Prostate Cancer The prostate is a small gland that produces fluid that makes up semen (seminal fluid). It is located below the bladder in men, in front of the rectum. Prostate cancer is the abnormal growth of cells in the prostate gland. What are the causes? The exact cause of this condition is not known. What increases the risk? You are more likely to develop this condition if: ??? You are 65 years of age or older. ??? You have a family history of prostate cancer. ??? You have a family history of breast and ovarian cancer. ??? You have genes that are passed from parent to child (inherited), such as BRCA1 and BRCA2. ??? You have Hawk syndrome. men and men of descent are diagnosed with prostate cancer at higher rates than other men. The reasons for this are not well understood and are likely due to a combination of genetic and environmental factors. What are the signs or symptoms? Symptoms of this condition include: ??? Problems with urination. This may include: ? A weak or interrupted flow of urine. ? Trouble starting or stopping urination. ? Trouble emptying the bladder all the way. ? The need to urinate more often, especially at night. ??? Blood in urine or semen. ??? Persistent pain or discomfort in the lower back, lower abdomen, or hips. ??? Trouble getting an erection. ??? Weakness or numbness in the legs or feet. How is this diagnosed? This condition can be diagnosed with: ??? A digital rectal exam. For this exam, a health care provider inserts a gloved finger into the rectum to feel the prostate gland. ??? A blood test called a prostate-specific antigen (PSA) test. ??? A procedure in which a sample of tissue is taken from the prostate and checked under a microscope (prostate biopsy). ??? An imaging test called transrectal ultrasonography. Once the condition is diagnosed, tests will be done to determine how far the cancer has spread. This is called staging the cancer. Staging may involve imaging tests, such as a bone scan, CT scan, PETscan, or MRI. Stages of prostate cancer The stages of prostate cancer are as follows: ??? Stage 1 (I). At this stage, the cancer is found in the prostate only. The cancer is not visibleon imaging tests, and it is usually found by accident, such as during prostate surgery. ??? Stage 2 (II). At this stage, the cancer is more advanced than it is in stage 1, but the cancer has not spread outside the prostate. ??? Stage 3 (III). At this stage, the cancer has spread beyond the outer layer of the prostate to nearby tissues. The cancer may be found in the seminal vesicles, which are near the bladder and the prostate. ??? Stage 4 (IV). At this stage, the cancer has spread to other parts of the body, such as the lymph nodes, bones, bladder, rectum, liver, or lungs. Prostate cancer grading Prostate cancer is also graded according to how the cancer cells look under a microscope. This is called the Kael score and the total score can range from 6?10, indicating how likely it is that the cancer will spread (metastasize) to other parts of the body. The higher the score, the greater thelikelihood that the cancer will spread. ??? Kael 6 or lower: This indicates that the cancer cells look similar to normal prostate cells (well differentiated). ??? Kael 7: This indicates that the cancer cells look somewhat similar to normal prostate cells (moderately differentiated). ??? Kael 8, 9, or 10: This indicates that the cancer cells look very different than normal prostate cells (poorly differentiated). How is this treated? Treatment for this condition depends on several factors, including the stage of the cancer, your age, personal preferences, and your overall health. Talk with your health care provider about treatment options that are recommended for you. Common treatments include: ??? Observation for early stage prostate cancer (active surveillance). This involves having exams, blood tests, and in some cases, more biopsies. For some men, this is the only treatment needed. ??? Surgery. Types of surgeries include: ? Open surgery (radical prostatectomy). In this surgery, a larger incision is made to remove the prostate. ? A laparoscopic radical prostatectomy. This is a surgery to remove the prostate and lymph nodes through several small incisions. It is often referred to as a minimally invasive surgery. ? A robotic radical prostatectomy. This is laparoscopic surgery to remove the prostate and lymph nodes with the help of robotic arms that are controlled by the surgeon. ? Cryoablation. This is surgery to freeze and destroy cancer cells. ??? Radiation treatment. Types of radiation treatment include: ? External beam radiation. This type aims beams of radiation from outside the body at the prostate to destroy cancerous cells. ? Brachytherapy. This type uses radioactive needles, seeds, wires, o (more content not included)...[facility]05-19-2025 History of Present illness Narrative* COCO Clements - 12/18/2024 10:40 AM EDT Images from the original note were not included. Subjective Yeni Holman is a 64 y.o. year old male No chief complaint on file. Past Medical History: Diagnosis Date Backache 2013 Brachial neuritis or radiculitis 01/12/2013 Cervicalgia 2013 Degenerative disc disease, cervical 08/18/2016 Depression (CMS/HCC) Disturbance of skin sensation 2013 Diverticulitis Fibromyalgia 08/24/2016 GERD (gastroesophageal reflux disease) Headache Headache 08/18/2016 High cholesterol (CMS/HCC) History of sleep disorder Hyperlipidemia (CMS/HCC) Hypertension (CMS/HCC) Lumbosacral radiculopathy 01/12/2013 Major depression, recurrent, chronic (HCC) (CMS/[facility]) Malaise and fatigue 2013 Migraine 11/23/2017 Muscle spasm 11/23/2017 Myalgia 11/23/2017 Neck pain 11/23/2017 Pain in limb 2013 Prostate cancer (CMS/HCC) SCCA (squamous cell carcinoma) of skin History of Lt Tonsillar SCCA + PET SCAN for rt tonsil Shingles Spinal stenosis, lumbar region without neurogenic claudication 08/18/2016 Syndrome affecting cervical region 08/18/2016 Tension headache 11/23/2017 Throat cancer ([facility]) (Lt Tonsillar) Viral warts Viral warts in nostrils Past Surgical History: Procedure Laterality Date CARPAL TUNNEL RELEASE Left 2014 NOSE SURGERY warts removed PALATE BIOPSY 01/28/2009 Soft Palate Bx Squamous hyperplasia RADICAL PROSTATECTOMY CPG 08/2020 TONSILLECTOMY Right 07/03/2008 TONSILLECTOMY Left 05/01/2008 Family History Problem Relation Name Age of Onset Breast cancer Mother Hypertension Mother Diabetes Mother Hypertension Father Arthritis Father Breast cancer Sister (2) Diabetes Brother Hypertension Brother Cancer Brother Social History Tobacco Use Smoking status: Never Smokeless tobacco: Never Substance Use Topics Alcohol use: Not Currently Comment: Caffeine: 1-2 cups/day coffee HPI HEADACHES -he filled the Qulipta and it was effective but cost him $675 -reports his headaches are unchanged -he is having 3-4 headaches a week -states they are usually always at nighttime but can be in the morning -headaches last maybe 3-4 hours -located in the back of head -occasionally located in the temporal area -denies any light sensitivity -reports some sound sensitivity -denies any nausea or vomiting -denies any visual changes -he got a new mattress and is sleeping better -trouble with staying asleep -averages 7-8 hours a night NECK PAIN -on Zanaflex -neck pain is unchanged -right side of neck continues to be worse than left -radiates in to the shoulders -some numbness and tingling in shoulders -ROM continues to be limited -reports a lot of cracking when turning head back and fourth -he notes that he was on Zanaflex 4 times per day in the past -he did well with this BACK PAIN -back pain is worse and is constant -located in lower back -denies any radiating in to hips or legs -pain today is 7/10 -admits to some imbalance -denies any recent falls -stumbles often TREMOR -on amantadine -tremors are about the same, denies worsening -located mostly in the hands -right hand continues to be worse than left -notices tremor both at rest and with activity -denies any trouble with eating, drinking, or writing -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 HENT: Positive for trouble swallowing. Respiratory: Negative for apnea, cough, choking, chest tightness, shortness of breath, wheezing andstridor. Cardiovascular: Negative for chest pain, palpitations and leg swelling. Gastrointestinal: Negative for abdominal distention, abdominal pain, anal bleeding, blood in stool,constipation, diarrhea, nausea, rectal pain and vomiting. Musculoskeletal: Positive for back pain, neck pain and neck stiffness. Negative for arthralgias, gait problem, joint swelling and myalgias. Neurological: Positive for tremors, weakness, numbness and headaches. Negative for dizziness, seizures, syncope, facial asymmetry, speech difficulty and light-headedness. Objective Visit Vitals BP 128/82 Pulse 76 Ht 6' Wt 210 lb SpO2 95% BMI 28.48 kg/m Smoking Status Never BSA 2.2 m Neurological Exam Mental Status Awake, alert and oriented to person, place and time. Recent and remote memory are intact. Speech isnormal. Language is fluent with no aphasia. Attention and concentration are normal. Fund of knowledge is appropriate for level of education. Cranial Nerves CN II: Visual acuity is normal. Visual gama full to confrontation. CN III, IV, : Extraocular movements intact bilaterally. Normal lids and orbits bilaterally. Pupils equal round and reactive to light bilaterally. CN V: Facial sensation is normal. CN VII: Full and symmetric facial movement. CN VIII: Hearing is normal. CN IX, X: Palate elevates symmetrically CN XI: Shoulder shrug strength is normal. CN XII: Tongue midline without atrophy or fasciculations. Motor Normal muscle bulk throughout. Normal muscle tone. No abnormal involuntary movements. Gait Casual gait is normal including stance, stride, and arm swing. 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 RLE Strength illopsoas, quadriceps, tibialis anterior, and gastrocnemius strength 5/5. LLE Strength illopsoas, quadriceps, tibialis anterior, and gastrocnemius strength 5/5. Tone Normal tone x4 extremities. Reflexes: RUE biceps reflex 2, brachioradialis reflex 2 LUE biceps reflex 2, brachioradialis reflex 2 RLE knee reflex 2, ankle reflex 2 LLE knee reflex 2, ankle reflex 2 Assessment and Plan Migraine without aura and without status migrainosus, not intractable (CMS/HCC) Tension headache Patient previously experiencing increase in headaches, which he attributed to stopping his Butrans patch due to cost from another provider. Depakote lessens headaches. Trileptal was ineffective. PCP is monitoring labs closely. He continues with daily morning headaches and migraines. He has tried and failed Depakote, trileptal, and zanaflex. He is on multiple psych medications including antidepressant, so I will avoid additional antidepressants to avoid comprising his psychiatric treatment and avoid medication interactions. Ajovy was denied and Qulipta was approved but still $675 for the patient out of pocket. He is willing to try Emgality as it is listed as on the formulary. Tremor Patient with tremor that is persistent over the past 1+ years that worsens with activities possiblyworsened by medication side effect. He is on depakote and abilify which can worsen tremor. TSH was slightly elevated at 4.347, valproic acid level 78.6. Amantadine has lessened tremor, although he can only tolerate once daily dosing. He had hallucinations with twice a day dosing. He is doing well with his current medications. Degenerative disc disease, lumbar Lumbar back pain Myalgia Patient has persistent and chronic back pain for years. He has previously seen pain management and has received multiple types of injections over the course of 8 or so years and notes they lasted fora month and so he stopped following up with them. Patient has neural foraminal narrowing, degenerative disc disease, and facet arthropathy. He has seen neurosurgery in the past and was advised not tohave surgery. He has had improvement with medrol dose rosaura previously. He has declined updating lumbar spine MRI. He remains on Lyrica after being off of this for some time due to miscommunication. Muscle spasm Neck pain Neck pain with DDD and muscle spasms causing tension headaches that transition into migraines. He is maintained on Zanaflex and celebrex. He declined updating cervical spine MRI. Trigger injections help but benefits are not lasting. He also has associated muscle spasms Patients receives medical massages monthly. Winter months are triggers for his muscle spasms. Heat therapy helps symptoms. He remains on Celebrex. He notes that he was on tizanidine 4 times per day in the past that was beneficial. Moderate PANCHITO Patient reports history of PANCHITO and states he has not used a CPAP in about a year due to difficulty with the mask. He had updated sleep study 02/09/2024 and titration study 04/10/2024 that recommended CPAP at a pressure of 14cm of water using a medium air fit F20 full face mask with a ramp time of 20 minutes with heated humidification for air for dryness. Sleep study 02/09/2024: revealed moderate obstructive sleep apnea and would benefit from CPAP titration MRI lumbar spine 11/27/20: revealed moderate marked foramen narrowing to L3-L4 and L4-L5 due to degenerative disc disease and facet arthropathy. There was a small left paracentral disc protrusion contacting the descending left L5 nerve roots. BLE EMG 03/2019: normal. MRI C spine 12/2012: revealed shallow disc displacements at C3-4, C5-6, and C6-7. No significant central canal stenosis. PLAN Send in Emgality for headache prevention, loading dose to start, to see if this is cost prohibitiveor not for the patient. He was on Zanaflex 4 times per day in the past which that is pretty frequent dosing. I will send inprescription for 4mg PO up to TID for muscle spasm/headache prevention, as we transition possibly to Emgality if covered. Continue Amantadine 100mg PO QAM for tremor Continue Depakote 500mg 2 tabs PO daily for headache prevention Continue Zanaflex 4mg 1 tab PO at bedtime for muscle spasms He was advised to call for any new or worsening symptoms. Follow up 2-3 months documented in this encounterSac-Osage [id number] History of Present illness Narrative* Abi Jun Green, JOC[employer] ROOM CUSTODIAN-DENTAL LABORATORY SUPERVISOR - 11/03/2024 10:00 AM EDT Images from the original note were not included. Yeni Holman is a 64 y.o. male presents for Medication Management. HPI: Patient is here for medication follow up. Patient has improved since last appt. Mood is reported as not depressed. Anxiety is under control. Sleeping 6 hours. Trouble falling asleep and wakes up early. States uncomfortable and thinks may bemattress. Medication compliant. No reported side effects. Denies abuse of substances. No new Medical problems since last visit. On Depakote for headaches. Hand tremors patient noted after starting depakote. Has gained wt. Denies Psychosocial stressors. Would like to continue current medications. SUBJECTIVE: [...] region 08/18/2016 Tension headache 11/23/2017 Throat cancer ([facility]) (Lt Tonsillar) Viral warts Viral warts in [...] have sleep apnea. Labs done in January 2024 Patient will have labs sent -Dr Doll Patient was seen Face to Face, Reviewed chart documents and documentation, Visit time : 20min Follow up 3 months documented in this [facility]01-30-2025 Telephone encounter Note* Telephone Encounter - Marti Hernandez MA - 08/31/2024 1:23 PM EST Linda was denied pt has to try formulary either Emgality or Qulipta [facility] [id number] Miscellaneous Notes* Telephone Encounter - Marti Hernandez MA - 08/31/2024 1:23 PM EST Linda was denied pt has to try formulary either Emgality or Qulipta documented in this [facility]01-30-2025 Telephone encounter Note* Telephone Encounter - Jasmin Spain LPN - 08/31/2024 10:48 AM EST Spoke to patient, informed that we had received a message from his Neurologist office regarding hisLyrica. Informed Evelyne that per Abi, there must have been some miscommunication. We would not have told him to stop the medication. It was recalled that he was not taking as directed when this nurse was going over his medication list at his last couple of appts. Patient stated that he thinks he ma y have ran out of it at one point but can not recall. Also reports that he thought we had prescribed it. Informed him no that we do not prescribe that medication. This nurse looked into the patients medication log and did however look back to see who had sent it in the past. His PCP Dr. Doll had been sending it in previously as far as I could see since 2022, latest one 08/03/23. Patient reports notpicking nor getting the notification for that. Recommended patient to call PCP regarding the med and if there was and conflicts with taking or if they were the ones that possibly told him to stop it.Informed patient that I would send this message back to neuro letting them know what we had discussed and that per Abi we did not have any issues with him resuming this med as long as it did not conflict with his psych meds. Understanding voiced [facility] [id number] Miscellaneous Notes* Telephone Encounter - Jasmin Spain LPN - 08/31/2024 10:48 AM EST Spoke to patient, informed that we had received a message from his Neurologist office regarding hisLyrica. Informed Evelyne that per Abi, there must have been some miscommunication. We would not have told him to stop the medication. It was recalled that he was not taking as directed when this nurse was going over his medication list at his last couple of appts. Patient stated that he thinks he ma y have ran out of it at one point but can not recall. Also reports that he thought we had prescribed it. Informed him no that we do not prescribe that medication. This nurse looked into the patients medication log and did however look back to see who had sent it in the past. His PCP Dr. Doll had been sending it in previously as far as I could see since 2022, latest one 08/03/23. Patient reports notpicking nor getting the notification for that. Recommended patient to call PCP regarding the med and if there was and conflicts with taking or if they were the ones that possibly told him to stop it.Informed patient that I would send this message back to neuro letting them know what we had discussed and that per Abi we did not have any issues with him resuming this med as long as it did not conflict with his psych meds. Understanding voiced * Telephone Encounter - Jasmin Spain LPN - 08/30/2024 1:28 PM EST Attempted to reach patient, did not answer. LVM to call office * Telephone Encounter - COCO Clements - 08/30/2024 10:51 AM EST Could you please reach out to Abi Green's office regarding this patient? He was previously on Lyrica and he notes some past benefit. He states that he was advised to stop this by psychiatry and I just want to be sure we have this noted in our records as far as the complications he had. If able, I was wondering if we could retry if there was no contraindication with his treatment there, or detriment to his care with her. Thanks! documented in this encounterNOWestern [facility] [id number] Telephone encounter Note* Telephone Encounter - Jasmin Spain LPN - 08/30/2024 1:28 PM EST Attempted to reach patient, did not answer. LVM to call office [facility] [id number] Telephone encounter Note* Telephone Encounter - COCO Clements - 08/30/2024 10:51 AM EST Could you please reach out to Abi Grene's office regarding this patient? He was previously on Lyrica and he notes some past benefit. He states that he was advised to stop this by psychiatry and I just want to be sure we have this noted in our records as far as the complications he had. If able, I was wondering if we could retry if there was no contraindication with his treatment there, or detriment to his care with her. Thanks! [facility] [id number] History of Present illness Narrative* COCO Clements - 08/30/2024 10:40 AM EST Images from the original note were not included. Subjective Yeni Holman is a 64 y.o. year old male Chief Complaint Patient presents with Migraine Past Medical History: Diagnosis Date Backache 2013 [...] Tonsillar) Viral warts Viral warts in nostrils Past Surgical History: Procedure Laterality Date CARPAL TUNNEL RELEASE Left 2014 NOSE SURGERY warts removed PALATE BIOPSY 01/28/2009 Soft Palate Bx Squamous hyperplasia RADICAL PROSTATECTOMY CPG 08/2020 TONSILLECTOMY Right 07/03/2008 TONSILLECTOMY Left 05/01/2008 Family History Problem Relation Name Age of Onset Breast cancer Mother Hypertension Mother Diabetes Mother Hypertension Father Arthritis Father Breast cancer Sister (2) Diabetes Brother Hypertension Brother Cancer Brother Social History Tobacco Use Smoking status: Never Smokeless tobacco: Never Substance Use Topics Alcohol use: Not Currently Comment: Caffeine: 1-2 cups/day coffee HPI HEADACHES -has not had Ajovy for the last 2 months -states he needs a new RX sent to pharmacy -reports his headaches have been better -states they are not as intense, just bothersome -continues to have 2 a week -states they are usually always at nighttime -headaches last maybe 3-4 hours -located in the back of head -occasionally located in the temporal area -denies any light sensitivity -reports some sound sensitivity -denies any nausea or vomiting -denies any visual changes -sleeping so so at night -trouble with staying asleep -averages 7-8 hours a night -wakes feeling rested more so than what he was NECK PAIN -on Zanaflex -neck pain has increased since last visit -right side of neck continues to be worse than left -radiates in to the shoulders -some numbness and tingling in shoulders -ROM continues to be limited -reports a lot of cracking when turning head back and fourth BACK PAIN -back pain is constant -located in lower back -denies any radiating in to hips or legs -pain today is 7/ -admits to some imbalance -denies any recent falls -stumbles often -was previously on Lyrica but this was stopped -he notes it was beneficial TREMOR -on amantadine -tremors are about the same, denies worsening -located mostly in the hands -right hand continues to be worse than left -notices tremor both at rest and with activity -denies any trouble with eating, drinking, or writing -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 HENT: Positive for trouble swallowing. Respiratory: Negative for apnea, cough, choking, chest tightness, shortness of breath, wheezing andstridor. Cardiovascular: Negative for chest pain, palpitations and leg swelling. Gastrointestinal: Negative for abdominal distention, abdominal pain, anal bleeding, blood in stool,constipation, diarrhea, nausea, rectal pain and vomiting. Musculoskeletal: Positive for back pain, neck pain and neck stiffness. Negative for arthralgias, gait problem, joint swelling and myalgias. Neurological: Positive for tremors, weakness, numbness and headaches. Negative for dizziness, seizures, syncope, facial asymmetry, speech difficulty and light-headedness. Objective Visit Vitals BP 122/80 Pulse 79 Resp 16 Ht 6' Wt 201 lb SpO2 93% BMI 27.26 kg/m Smoking Status Never BSA 2.15 m Neurological Exam Mental Status Awake, alert and oriented to person, place and time. Recent and remote memory are intact. Speech isnormal. Language is fluent with no aphasia. Attention and concentration are normal. Fund of knowledge is appropriate for level of education. Cranial Nerves CN II: Visual acuity is normal. Visual gama full to confrontation. CN III, IV, : Extraocular movements intact bilaterally. Normal lids and orbits bilaterally. Pupils equal round and reactive to light bilaterally. CN V: Facial sensation is normal. CN VII: Full and symmetric facial movement. CN VIII: Hearing is normal. CN IX, X: Palate elevates symmetrically CN XI: Shoulder shrug strength is normal. CN XII: Tongue midline without atrophy or fasciculations. Motor Normal muscle bulk throughout. Normal muscle tone. No abnormal involuntary movements. Gait Casual gait is normal including stance, stride, and arm swing. 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 RLE Strength illopsoas, quadriceps, tibialis anterior, and gastrocnemius strength 5/5. LLE Strength illopsoas, quadriceps, tibialis anterior, and gastrocnemius strength 5/5. Tone Normal tone x4 extremities. Reflexes: RUE biceps reflex 2, brachioradialis reflex 2 LUE biceps reflex 2, brachioradialis reflex 2 RLE knee reflex 2, ankle reflex 2 LLE knee reflex 2, ankle reflex 2 Assessment and Plan Migraine without aura and without status migrainosus, not intractable (CMS/HCC) Tension headache Patient previously experiencing increase in headaches, which he attributed to stopping his Butrans patch due to cost from another provider. Depakote lessens headaches. Trileptal was ineffective. PCP is monitoring labs closely. He continues with daily morning headaches and migraines. He has tried and failed Depakote, trileptal, and zanaflex. He is on multiple psych medications including antidepressant, so I will avoid additional antidepressants to avoid comprising his psychiatric treatment and avoid medication interactions. He has noticed benefit with Ajovy but had issues with filling this andsince received a letter noting it was improved. Tremor Patient with tremor that is persistent over the past 1+ years that worsens with activities possiblyworsened by medication side effect. He is on depakote and abilify which can worsen tremor. TSH was slightly elevated at 4.347, valproic acid level 78.6. Amantadine has lessened tremor, although he can only tolerate once daily dosing. He had hallucinations with twice a day dosing. Tremor is at baseline. Degenerative disc disease, lumbar Lumbar back pain Myalgia Patient has persistent and chronic back pain for years. He has previously seen pain management and has received multiple types of injections over the course of 8 or so years and notes they lasted fora month and so he stopped following up with them. Patient has neural foraminal narrowing, degenerative disc disease, and facet arthropathy. He has seen neurosurgery in the past and was advised not tohave surgery. He has had improvement with medrol dose rosaura previously. He has declined updating lumbar spine MRI. He is no longer on Lyrica. Muscle spasm Neck pain Neck pain with DDD and muscle spasms causing tension headaches that transition into migraines. He is maintained on Zanaflex and celebrex. He declined updating cervical spine MRI. Trigger injections help but benefits are not lasting. He also has associated muscle spasms Patients receives medical massages monthly. Winter months are triggers for his muscle spasms. Heat therapy helps symptoms. He remains on Celebrex. Moderate PANCHITO Patient reports history of PANCHITO and states he has not used a CPAP in about a year due to difficulty with the mask. He had updated sleep study 02/09/2024 and titration study 04/10/2024 that recommended CPAP at a pressure of 14cm of water using a medium air fit F20 full face mask with a ramp time of 20 minutes with heated humidification for air for dryness. [facility] set patient up with his CPAP machine. Sleep study 02/09/2024: revealed moderate obstructive sleep apnea and would benefit from CPAP titration MRI lumbar spine 11/27/20: revealed moderate marked foramen narrowing to L3-L4 and L4-L5 due to degenerative disc disease and facet arthropathy. There was a small left paracentral disc protrusion contacting the descending left L5 nerve roots. BLE EMG 03/2019: normal. MRI C spine 12/2012: revealed shallow disc displacements at C3-4, C5-6, and C6-7. No significant central canal stenosis. PLAN We will look into discontinuation of Lyrica. Resend Ajovy monthly for headache prevention. Continue Amantadine 100mg PO QAM for tremor Continue Depakote 500mg 2 tabs PO daily for headache prevention Continue Zanaflex 4mg 1 tab PO at bedtime for muscle spasms Follow up 3-4 months documented in this encounterSac-Osage [id number] History of Present illness Narrative* Abi Green, [employer] CUSTODIAN-DENTAL LABORATORY SUPERVISOR - 07/07/2024 10:30 AM EST Images from the original note were not included. Yeni Holman is a 64 y.o. male presents for Medication Management. HPI: Patient is here for medication follow up. Patient has improved since last appt. Mood is reported as not depressed. Anxiety is under control. Sleeping 8 hours. Medication compliant. No reported side effects. Denies abuse of substances. No new Medical problems since last visit. Has gained wt. Psychosocial stressors include needing new furnace. Would like to continue current medications. SUBJECTIVE: [...] Appearance: Casual dress, normal grooming and hygiene Attitude Attitude: Cooperative, conversant, engaged, and with [...] Assessment/Plan Major depression, recurrent, chronic (HCC) (CMS/HCC Psych Medication List traZODone HCl Tablet, 100 MG, TAKE 1-2 TABLETS BY MOUTH in pm ARIPiprazole Tablet, 10 MG, 1 tablet, Orally, Once a day Trintellix 20mg po daily Does have sleep apnea. Labs done in January 2024 Patient was seen Face to Face, Reviewed chart documents and documentation, Visit time : 20min Follow up -4 months documented in this encounterSac-Osage [id number] NotePatient Education Obstetrics and Gynecology Overactive Bladder, Adult [...] You may also have very sensitive muscles thatmake your bladder squeeze too soon. This condition may also be caused by other factors, such as: ??? Medical conditions: ? Urinary tract infection. ? Infection of nearby tissues. ? Prostate enlargement. ? Bladder stones, inflammation, or tumors. ? Diabetes. ? Muscle or nerve weakness, especially from these conditions: ? A spinal cord injury. ? Stroke. ? Multiple sclerosis. ? Parkinson's disease. ??? Other causes: ? Surgery on the uterus or urethra. ? Drinking too much caffeine or alcohol. ? Certain medicines, especially those that eliminate extra fluid in the body (diuretics). ? Constipation. What increases the risk? You may be at greater risk for overactive bladder if you: ??? Are an older adult. ??? Smoke. ??? Are going through menopause. ??? Have prostate problems. ??? Have a neurological disease, such as stroke, dementia, Parkinson's disease, or multiple sclerosis (MS). ??? Eat or drink alcohol, spicy food, caffeine, and other things that irritate the bladder. ??? Are overweight or obese. What are the signs or symptoms? Symptoms of this condition include a sudden, strong urge to urinate. Other symptoms include: ??? Leaking urine. ??? Urinating 8 or more times a day. ??? Waking up to urinate 2 or more times overnight. How is this diagnosed? This condition may be diagnosed based on: ??? Your symptoms and medical history. ??? A physical exam. ??? Blood or urine tests to check for possible causes, such as infection. You may also need to see a health care provider who specializes in urinary tract problems. This is called a urologist. How is this treated? Treatment for overactive bladder depends on the cause of your condition and whether it is mild or severe. Treatment may include: ??? Bladder training, such as: ? Learning to control the urge to urinate by following a schedule to urinate at regular intervals. ? Doing Kegel exercises to strengthen the pelvic floor muscles that support your bladder. ??? Special devices, such as: ? Biofeedback. This [...] into the vagina and supports the bladder. ??? Medicines, such as: ? Antibiotics to treat bladder infection. ? Antispasmodics to stop the bladder from releasing urine at the wrong time. ? Tricyclic antidepressants to relax bladder muscles. ? Injections of botulinum toxin type A directly into the bladder tissue to relax bladder muscles. ??? Surgery, such as: ? A device may be implanted to help manage the nerve signals that control urination. ? An electrode may be implanted to stimulate electrical signals in the bladder. ? A procedure may be done to change the shape of the bladder. This is done only in very severe cases. Follow these instructions at home: Eating and drinking ??? Make diet or lifestyle changes recommended by [...] such as fried and sweet foods. Lifestyle ??? Lose weight if needed. ??? Do not use any products that contain nicotine or tobacco. These include cigarettes, chewing tobacco, and vaping devices, such as e-cigarettes. If you need help quitting, ask your health care provider. General instructions ??? Take [id number] and prescription medicines only as told by your health care provider. ??? If you were prescribed an antibiotic medicine, take it as told by your health care provider. Donot stop taking the antibiotic even if you start to feel better. ??? Use any implants or pessary as told by your health care provider. ??? If needed, wear pads to absorb urine leakage. ??? Keep a log to track how much and when you drink, and whe (more content not included)...[facility]11-05-2024 History of Present illness Narrative* COCO Luciano - 06/06/2024 11:00 AM EST Subjective Yeni Holman is a 64 y.o. year old male Chief Complaint Patient presents with Migraine Past Medical History: Diagnosis Date Backache 2013 [...] Tonsillar) Viral warts Viral warts in nostrils Past Surgical History: Procedure Laterality Date CARPAL TUNNEL RELEASE Left 2014 NOSE SURGERY warts removed PALATE BIOPSY 01/28/2009 Soft Palate Bx Squamous hyperplasia RADICAL PROSTATECTOMY C[facility] 08/2020 TONSILLECTOMY Right 07/03/2008 TONSILLECTOMY Left 05/01/2008 Family History Problem Relation Name Age of Onset Breast cancer Mother Hypertension Mother Diabetes Mother Hypertension Father Arthritis Father Breast cancer Sister (2) Diabetes Brother Hypertension Brother Cancer Brother Social History Tobacco Use Smoking status: Never Smokeless tobacco: Never Substance Use Topics Alcohol use: Not Currently Comment: Caffeine: 1-2 cups/day coffee HPI HEADACHES -PSG to review -given samples of Ajovy at last visit -states he seen an improvement -reports 2 a week -headaches last maybe 2-3 hours -located in the back of head most of the time -occasionally located in the temporal area -denies any light or sound sensitvity -denies any nausea or vomiting -denies any visual changes -sleeps pretty good at night -averages 7-8 hours a night -does not wake feeling rested . NECK PAIN -on Zanaflex -reports neck pain has been a little better lately -right side of neck is worse than left -radiates in to the shoulders -denies any numbness or tingling -ROM continues to be limited -reports a lot of cracking when turning head back and fourth . BACK PAIN -report back pain comes and goes -located in lower back -denies any radiating in to hips or legs -pain is a 4/10 today -admits to some imbalance -denies any recent falls, reports close calls . 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 HENT: Positive for trouble swallowing. Respiratory: Negative for apnea, cough, choking, chest tightness, shortness of breath, wheezing andstridor. Cardiovascular: Negative for chest pain, palpitations and leg swelling. Gastrointestinal: Negative for abdominal distention, abdominal pain, anal bleeding, blood in stool,constipation, diarrhea, nausea, rectal pain and vomiting. Musculoskeletal: Positive for back pain, neck pain and neck stiffness. Negative for arthralgias, gait problem, joint swelling and myalgias. Neurological: Positive for tremors and headaches. Negative for dizziness, seizures, syncope, facialasymmetry, speech difficulty, weakness, light- headedness and numbness. Objective Visit Vitals BP 130/82 Pulse 67 Resp 16 Ht 6' Wt 190 lb SpO2 94% BMI 25.77 kg/m Smoking Status Never BSA 2.09 m Neurological Exam Mental Status Awake, alert and oriented to person, place and time. Recent and remote memory are intact. Speech isnormal. Language is fluent with no aphasia. Attention and concentration are normal. Fund of knowledge is appropriate for level of education. Cranial Nerves CN II: Visual acuity is normal. Visual gama full to confrontation. CN III, IV, : Extraocular movements intact bilaterally. Normal lids and orbits bilaterally. Pupils equal round and reactive to light bilaterally. CN V: Facial sensation is normal. CN VII: Full and symmetric facial movement. CN VIII: Hearing is normal. CN IX, X: Palate elevates symmetrically CN XI: Shoulder shrug strength is normal. CN XII: Tongue midline without atrophy or fasciculations. Motor Normal muscle bulk throughout. Normal muscle tone. No abnormal involuntary movements. Gait Casual gait is normal including stance, stride, and arm swing. 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 RLE Strength illopsoas, quadriceps, tibialis anterior, and gastrocnemius strength 5/5. LLE Strength illopsoas, quadriceps, tibialis anterior, and gastrocnemius strength 5/5. Tone Normal tone x4 extremities. Reflexes: RUE biceps reflex 2, brachioradialis reflex 2 LUE biceps reflex 2, brachioradialis reflex 2 RLE knee reflex 2, ankle reflex 2 LLE knee reflex 2, ankle reflex 2 Action tremor bilaterally Assessment and Plan Diagnoses and all orders for this visit: Migraine without aura and without status migrainosus, not intractable (CMS/HCC) Tension headache Patient previously experiencing increase in headaches, which he attributed to stopping his Butrans patch due to cost from another provider. Depakote lessens headaches. Trileptal was ineffective. PCP is monitoring labs closely. He continues with daily morning headaches and migraines. He has tried and failed Depakote, trileptal, and zanaflex. He is on multiple psych medications including antidepressant, so I will avoid additional antidepressants to avoid comprising his psychiatric treatment and avoid medication interactions. He has noticed benefit with Ajovy. Tremor Patient with tremor that is persistent over the past 1+ years that worsens with activities possiblyworsened by medication side effect. He is on depakote and abilify which can worsen tremor. TSH was slightly elevated at 4.347, valproic acid level 78.6. Amantadine has lessened tremor, although he can only tolerate once daily dosing. He had hallucinations with twice a day dosing. Tremor has improved some since last visit. Degenerative disc disease, lumbar Lumbar back pain Myalgia Patient has persistent and chronic back pain for years. He has previously seen pain management and has received multiple types of injections over the course of 8 or so years and notes they lasted fora month and so he stopped following up with them. Patient has neural foraminal narrowing, degenerative disc disease, and facet arthropathy. He has seen neurosurgery in the past and was advised not tohave surgery. He has had improvement with medrol dose rosaura previously. He has declined updating lumbar spine MRI. Muscle spasm Neck pain Neck pain with DDD and muscle spasms causing tension headaches that transition into migraines. He is maintained on Zanaflex and celebrex. He declined updating cervical spine MRI. Trigger injections help but benefits are not lasting. He also has associated muscle spasms Patients receives medical massages monthly. Winter months are triggers for his muscle spasms. Heat therapy helps symptoms. Moderate PANCHITO Patient reports history of PANCHITO and states he has not used a CPAP in about a year due to difficulty with the mask. He had updated sleep study 02/09/2024 and titration study 04/10/2024 that recommended CPAP at a pressure of 14cm of water using a medium air fit F20 full face mask with a ramp time of 20 minutes with heated humidification for air for dryness. [facility] set patient up with his CPAP machine and he has been using it for a few weeks. Sleep study 02/09/2024: revealed moderate obstructive sleep apnea and would benefit from CPAP titration MRI lumbar spine 11/27/20: revealed moderate marked foramen narrowing to L3-L4 and L4-L5 due to degenerative disc disease and facet arthropathy. There was a small left paracentral disc protrusion contacting the descending left L5 nerve roots. BLE EMG 03/2019: normal. MRI C spine 12/2012: revealed shallow disc displacements at C3-4, C5-6, and C6-7. No significant central canal stenosis. PLAN I reviewed sleep study and titration study I gave patient a samples of Linda for migraine prevention therapy and will check with the pharmacy on the status of his prescription Continue Amantadine 100mg PO QAM for tremor Continue Depakote 500mg 2 tabs PO daily for headache prevention Continue Zanaflex 4mg 1 tab PO at bedtime for muscle spasms I counseled the patient on potential medication side effects. Patient to follow up with this clinic in 2 months or sooner for new or worsening symptoms documented in this encounterSac-Osage [id number] History of Present illness Narrative* COCO Luciano - 04/10/2024 11:20 AM EDT Subjective Yeni Holman is a 64 y.o. year old male Chief Complaint Patient presents with Migraine Neck Pain Tremors Back Pain Past Medical History: Diagnosis Date Backache 2013 [...] Tonsillar) Viral warts Viral warts in nostrils Past Surgical History: Procedure Laterality Date CARPAL TUNNEL RELEASE Left 2014 NOSE SURGERY warts removed PALATE BIOPSY 01/28/2009 Soft Palate Bx Squamous hyperplasia RADICAL PROSTATECTOMY CPG 08/2020 TONSILLECTOMY Right 07/03/2008 TONSILLECTOMY Left 05/01/2008 Family History Problem Relation Name Age of Onset Breast cancer Mother Hypertension Mother Diabetes Mother Hypertension Father Arthritis Father Breast cancer Sister (2) Diabetes Brother Hypertension Brother Cancer Brother Social History Tobacco Use Smoking status: Never Smokeless tobacco: Never Substance Use Topics Alcohol use: Not Currently Comment: Caffeine: 1-2 cups/day coffee HPI HEADACHES -PSG is scheduled for tonight -states Ajovy still never came -headaches have been a little better lately -reports 3-4 a week -headaches last maybe 2-3 hours -located in the back of head most of the time -occasionally located in the temporal area -described as throbbing in the back and stabbing in the temporal area -denies any light or sound sensitvity -denies any nausea or vomiting -denies any visual changes -sleeps pretty good at night -wakes twice a night to use the bathroom -averages 7-8 hours a night -does not wake feeling rested . NECK PAIN -on Zanaflex -states neck pain has been almost constant -radiates in to the shoulder -right side is worse than left -denies any numbness or tingling -ROM is limited -reports a lot of cracking when turning head back and fourth . BACK PAIN -reports back pain is constant -located in lower back -states it has started to radiating in to hips -pain is a 7/10 today -states he is never without pain, intensity just varies -balance is off -denies any recent falls . 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 Respiratory: Negative for apnea, cough, choking, chest tightness, shortness of breath, wheezing andstridor. Cardiovascular: Negative for chest pain, palpitations and leg swelling. Gastrointestinal: Negative for abdominal distention, abdominal pain, anal bleeding, blood in stool,constipation, diarrhea, nausea, rectal pain and vomiting. Musculoskeletal: Positive for back pain, neck pain and neck stiffness. Negative for arthralgias, gait problem, joint swelling and myalgias. Neurological: Positive for tremors and headaches. Negative for dizziness, seizures, syncope, facialasymmetry, speech difficulty, weakness, light- headedness and numbness. Objective Visit Vitals BP 128/74 Pulse 61 Resp 16 Ht 6' Wt 177 lb SpO2 97% BMI 24.01 kg/m Smoking Status Never BSA 2.02 m Neurological Exam Mental Status Awake, alert and oriented to person, place and time. Recent and remote memory are intact. Speech isnormal. Language is fluent with no aphasia. Attention and concentration are normal. Fund of knowledge is appropriate for level of education. Cranial Nerves CN II: Visual acuity is normal. Visual gama full to confrontation. CN III, IV, : Extraocular movements intact bilaterally. Normal lids and orbits bilaterally. Pupils equal round and reactive to light bilaterally. CN V: Facial sensation is normal. CN VII: Full and symmetric facial movement. CN VIII: Hearing is normal. CN IX, X: Palate elevates symmetrically CN XI: Shoulder shrug strength is normal. CN XII: Tongue midline without atrophy or fasciculations. Motor Normal muscle bulk throughout. Normal muscle tone. No abnormal involuntary movements. Gait Casual gait is normal including stance, stride, and arm swing. 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 RLE Strength illopsoas, quadriceps, tibialis anterior, and gastrocnemius strength 5/5. LLE Strength illopsoas, quadriceps, tibialis anterior, and gastrocnemius strength 5/5. Tone Normal tone x4 extremities. Reflexes: RUE biceps reflex 2, brachioradialis reflex 2 LUE biceps reflex 2, brachioradialis reflex 2 RLE knee reflex 2, ankle reflex 2 LLE knee reflex 2, ankle reflex 2 Action tremor bilaterally Assessment and Plan Diagnoses and all orders for this visit: Migraine without aura and without status migrainosus, not intractable (CMS/HCC) Tension headache Patient previously experiencing increase in headaches, which he attributed to stopping his Butrans patch due to cost from another provider. Depakote lessens headaches. Trileptal was ineffective. PCP is monitoring labs closely. He continues with daily morning headaches and migraines. He has tried and failed Depakote, trileptal, and zanaflex. He is on multiple psych medications including antidepressant, so I will avoid additional antidepressants to avoid comprising his psychiatric treatment and avoid medication interactions. He did not receive the Ajovy. His headaches have improved slightly compared to last visit. Tremor Patient with tremor that is persistent over the past 1+ years that worsens with activities possiblyworsened by medication side effect. He is on depakote and abilify which can worsen tremor. TSH was slightly elevated at 4.347, valproic acid level 78.6. Amantadine has lessened tremor, although he can only tolerate once daily dosing. He had hallucinations with twice a day dosing. Degenerative disc disease, lumbar Lumbar back pain Myalgia Patient has persistent and chronic back pain for years. He has previously seen pain management and has received multiple types of injections over the course of 8 or so years and notes they lasted fora month and so he stopped following up with them. Patient has neural foraminal narrowing, degenerative disc disease, and facet arthropathy. He has seen neurosurgery in the past and was advised not tohave surgery. He has had improvement with medrol dose rosaura previously. He has declined updating lumbar spine MRI. Muscle spasm Neck pain Neck pain with DDD and muscle spasms causing tension headaches that transition into migraines. He is maintained on Zanaflex and celebrex. He declined updating cervical spine MRI. Trigger injections help but benefits are not lasting. He also has associated muscle spasms Patients receives medical massages monthly. Winter months are triggers for his muscle spasms. Heat therapy helps symptoms. Hypersomnia Patient reports history of PANCHITO and states he has not used a CPAP in about a year due to difficulty with the mask. He also lost weight and was unsure if he still needed it. He continues with daytime fatigue, quick to doze off, morning headaches, and difficulty maintaining sleep. His sleep study is scheduled for this evening. MRI lumbar spine 11/27/20: revealed moderate marked foramen narrowing to L3-L4 and L4-L5 due to degenerative disc disease and facet arthropathy. There was a small left paracentral disc protrusion contacting the descending left L5 nerve roots. BLE EMG 03/2019: normal. MRI C spine 12/2012: revealed shallow disc displacements at C3-4, C5-6, and C6-7. No significant central canal stenosis. PLAN I encouraged patient to follow through with sleep study. I gave patient a sample of Ajovy for migraine prevention therapy and will check with the pharmacy on the status of his prescription Continue Amantadine 100mg PO QAM for tremor Continue Depakote 500mg 2 tabs PO daily for headache prevention Continue Zanaflex 4mg 1 tab PO at bedtime for muscle spasms I counseled the patient on potential medication side effects. Patient to follow up with this clinic in 2 months or sooner for new or worsening symptoms documented in this encounterSac-Osage [id number] History of Present illness Narrative* Abi Green, JOCKEY ROOM CUSTODIAN-DENTAL LABORATORY SUPERVISOR - 03/24/2024 11:00 AM EDT Images from the original note were not included. Yeni Holman is a 64 y.o. male presents for Medication Management. HPI: Patient is here for medication follow up. Patient is unchanged since last visit. has improved / decompensated since last appt. Mood is not depressed. I just dont have energy. Has been checked by PCP and had labs. Had sleep study and going for measurement of equipment. Anxiety is under control. Sleeping 7-8 hours. Sleep apnea. Medication compliant. No reported side effects. Denies abuse of substances. Medical problems since last visit. Treated for migraines, tremors. Hx of having COVID and hospitalized Denies Psychosocial stressors. 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 SUBJECTIVE: PAST MEDICAL HISTORY: Past Medical History: [...] Drug use: Never Depression: Not at risk (01/27/2024) PHQ-2 PHQ-2 Score: 2 REVIEW OF SYMPTOMS - MENTAL STATUS EXAM Appearance Appearance: Casual dress, normal grooming and hygiene Attitude Attitude: Cooperative, conversant, engaged, and with good eye contact. Behavior Cooperative, conversant, engaged, and with good eye contact. 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 Next visit will assess effect of sleep apnea treatment on energy. Patient was seen Face to Face, Reviewed chart documents and documentation, Visit time : 20min F/U 3-4 months documented in this encounterSac-Osage [id number] Hospital Discharge instructions Patient Education 03/22/2024 11:18:06 [...] You may also have very sensitive muscles thatmake your bladder squeeze too soon. This condition [...] your health care provider. General instructions Take zmsz-due-kgpjxza and prescription medicines only as told by your health care provider. If you were prescribed an antibiotic medicine, take it as told by your health care provider. Do notstop taking the antibiotic even if you start [...] provider. Document Revised: 04/07/2021 Document Reviewed: 04/07/2021 [employer] Patient Education 2022 [employer]. 03/22/2024 11:18:05 Botulinum Toxin Bladder Injection Botulinum [...] including vitamins, herbs, eye drops, creams, and flcd-rgv-tebrmbb medicines. Any problems you or family members [...] provider tells you to take them. Taking lncm-azf-itggjkc medicines, vitamins, herbs, and supplements. General instructions [...] Follow these instructions at home: Medicines Take dwxx-vtb-zpqpogc and prescription medicines only as told by your health care provider. If you were prescribed an antibiotic medicine, take it as told by your health care provider. Do notstop using the antibiotic even if you start [...] provider. Document Revised: 01/23/2022 Document Reviewed: 01/23/2022 [employer] Patient Education 2022 [employer]. Follow Up Care 03/17/2023 11:32:09 With:Brian LUGO, PEDRO Bernal, URO Address: When: Unknown [facility] 08-21-2024 NotePatient Education Obstetrics and Gynecology Overactive Bladder, Adult [...] You may also have very sensitive muscles thatmake your bladder squeeze too soon. This condition [...] as stroke, dementia, Parkinson's disease, or multiple sclerosis(MS). ? Eat or drink alcohol, spicy food, [...] health care provider. General instructions ? Take snhb-hfg-goojzhp and prescription medicines only as told by [...] help your health care (more content not included)...[facility]01-29-2024 Evaluation note* Encounter Date Diagnosis Assessment Notes Treatment Notes Treatment Clinical Notes Aug, Elevated TSH (ICD-10 - R94.6) [facility] Other 01-22-2024 Evaluation note* Encounter Date Diagnosis Assessment Notes Treatment Notes Treatment Clinical Notes Aug, Weight loss, unintentional (ICD- 10 - R63.4) [facility] Other 01-11-2024 Evaluation note* Encounter Date Diagnosis Assessment Notes Treatment Notes Treatment Clinical Notes Aug, Primary hypertension (ICD-10 - I 10) This patient is instructed to consume a healthy, low-fat, low-salt diet. They are also encouraged to continue exercise to achieve/maintain a normal BMI. Reduced medication due to weight loss Continue to monitor Aug,Weight loss, unintentional (ICD-10 - R63.4)Instructed on health, high protein, high fiber diet. Protein/calorie supplents daily. Keep active. r/o thyroid disease r/o anemia r/o diabetes r/o renal or hepatic failure CXR to r/o pulmonary infection or tumor CT abd/pelvis to r/o GI malignancy, pancreatic mass/cyst/neoplasm, hepatoma, renal Cell Ca. Aug,Elevated cholesterol (ICD-10 - E78.00) Aug,Thrombocytopenia (ICD-10 - D69.6)No bleeding complications Aug,OSA (obstructive sleep apnea) (ICD-10 - G47.33)This patient is aware of the benefits associated with PANCHITO: With continued use, the patient reduces t he risk for OH, CVA, HTN, cardiac dysrhythmias and sudden cardiac deaths.The patient is also aware of the association between PANCHITO and morning headaches, daytime somnolence, fatigue and obesity, Stopped use due to ill fitting mask. Feels weight loss has improved his sleep quality Aug,Gastroesophageal reflux disease with esophagitis without hemorrhage (ICD-10 - K21.00)Avoid lying flat after eating. Avoid eating 2 hours prior to bedtime. Smaller, frequent meals may be better tolerated.Weight loss if overweight.PPI with any heartburn.Monitor for dysphagia. Aug,Lumbar spondylosis (ICD-10 - M47.816)The patient is instructed to avoid bending, twisting or lifting. They are to use intermittent heat and ice as needed. They may schedule a massage or gentle manipulation. They may safely use Tylenol as needed. Aug,rostate cancer (ICD-10 - C61)No obvious s/s recurrence f/u Oncology Aug,Hx of squamous cell carcinoma (ICD-10 - Z85.89)TonsilNo s/s recurrence f/u ENT [facility] Other 01-09-2024 Evaluation note* Encounter Date Diagnosis Assessment Notes Treatment Notes Treatment Clinical Notes Aug, Lumbar spondylosis (ICD-10 - M47 .816) [facility] Other 12-26-2023 Evaluation note* Encounter Date Diagnosis Assessment Notes Treatment Notes Treatment Clinical Notes Jul, Lumbar spondylosis (ICD-10 - M47 .816) Jul,astroesophageal reflux disease with esophagitis without hemorrhage (ICD-10 - K21.00) [facility] Other 12-06-2023 Evaluation note* Encounter Date Diagnosis Assessment Notes Treatment Notes Treatment Clinical Notes Jul, Weight loss, unintentional (ICD- 10 - R63.4) [facility] Other 11-30-2023 Evaluation note* Encounter Date Diagnosis Assessment Notes Treatment Notes Treatment Clinical Notes Jun, Primary hypertension (ICD-10 - I 10) This patient is instructed to consume a healthy, low-fat, low-salt diet. They are also encouraged to continue exercise to achieve/maintain a normal BMI. BP low normal w/ symptoms of lightheadedness Due to extreme weight loss Reduce Lotrel to 5/10 Jun,OVID-19 (ICD-10 - U07.1)Finished Remdesivir and Decadron. Continues w/ fatigue and lack of energy No longer required to isolate. Explained that he has natural immunity but should vaccinate in 3 months w/ new booster. Jun,OSA (obstructive sleep apnea) (ICD-10 - G47.33)This patient is aware of the benefits associated with PANCHITO: With continued use, the patient reduces t he risk for OH, CVA, HTN, cardiac dysrhythmias and sudden cardiac deaths.The patient is also aware of the association between PANCHITO and morning headaches, daytime somnolence, fatigue and obesity Stopped use due to mask causing ulceration on bridge of nose Due to weight loss, he no longer snores. After time for recover, recommend retitration study Jun,Weight loss, unintentional (ICD-10 - R63.4)Encouraged to eat small, frequent meals Instructed on protein/calorie supplements. CT abd/pelvis to r/o malignancy (primary vs metastatic) - known hx of throat cancer, prostate cancer EGD and Colonoscopy to follow to r/o esophageal, gastric or colon cancer Jun,nemia, unspecified type (ICD-10 - D64.9)Unknown etiology - discussed GIB but no obvious s/s - discussed vitamin deficiencies: b12, FA and Fe Endoscopy to r/o PUD, polyp, ca Jun,Elevated cholesterol (ICD-10 - E78.00)Instructed on diet and exercise with continued statin therapy.Discussed the beneficial effects of lo wering cholesterol in reducing the risk for cerebrovascular and cardiovascular disease. Jun,astroesophageal reflux disease with esophagitis without hemorrhage (ICD-10 - K21.00)Diet instructions: Smaller portions, avoid eating and laying flat, avoid eating or drinking prior to bedtime. Weight loss. 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 Healthy diet and keep active. No change in medications Jun,Lumbar spondylosis (ICD-10 - M47.816)This patient requires opiate use on a daily [...] report is being monitored every 90 days. Jun,rostate cancer (ICD-10 - C61)No obvious s/s recurrence f/u [facility] Other 11-03-2023 Evaluation note* Encounter Date Diagnosis Assessment Notes Treatment Notes Treatment Clinical Notes Jun, Lumbar spondylosis (ICD-10 - M47 .816) [facility] Other 10-29-2023 Evaluation + Plan noteExtracted from:Title: APSO NoteAuthor:Jossue Spivey DODate:05/30/23 1. COVID-19 (U07.1: COVID-19 ) Remdesivir started 05/27, complete 5 days DEXA started 05/27, complete 10 days -Patient on room air, can likely stop remdesivir at discharge Ordered: [facility] Care/Day Moderate 35 Minutes 18263 2. Acute hypoxemic respiratory failure (J96.01: Acute [...] With T4fr Reflex Vancomycin Level Peak Extracted from:Title:APSO NoteAuthor:Jossue Spivey DODate:05/29/23 1. COVID-19 (U07.1: COVID-19 ) Remdesivir started 05/27, completed 5 days DEXA started 05/27, complete 10 days Ordered: Initial Hospital Care/Day Moderate 55 Minutes [id number] 2. Acute hypoxemic respiratory failure (J96.01: Acute [...] Vancomycin Level Peak Vancomycin Level Trough Extracted from:Title:APSO NoteAuthor:Jossue Spivey DODate:05/28/23 1. COVID-19 (U07.1: COVID-19 ) tested positive in ER -remdesivir started 05/27 -Dexa 05/27 Ordered: [facility] Care/Day Moderate 35 Minutes [id number] 2. Acute hypoxemic respiratory failure (J96.01: Acute [...] Status - Full Vital Signs Weight Extracted from:Title:Admission H & PAuthor:Jossue Spivey DODate:05/27/23 Will be admitted under inpat ient status [...] Ordered: Initial Hospital Care/Day Moderate 55 Minutes [id number] 2. Acute hypoxemic respiratory failure (J96.01: Acute [...] Status - Full Vital Signs Weight Extracted from:Title:ED NoteAuthor:Barney Duncan PA-C CDate:05/27/23 Acute hypoxemic respiratory failure (J96.01: Acute respiratory failure with hypoxia) COVID-19 (U07.1: COVID-19) Orders: albuterol-ipratropium, 3 mL, Soln-Inh, Inhalation, Once, Stop date 05/27/23 13:32:00 EDT, STAT, Start date 05/27/23 13:32:00 EDT Sodium Chloride 0.9% intravenous solution, 1,000 mL, Soln-IV, IV, Once, Stop date 05/27/23 14:10:00EDT, STAT, Start date 05/27/23 14:10:00 EDT, Infuse over 61, minute(s) Automated Diff B-Type Natriuretic Peptide Basic Metabolic Panel Blood Culture Charcoal Blood Culture Charcoal Blood Gas Art, with Lytes, Gluc, Lact CBC w/ Auto Diff Continuous Pulse Oximetry ED Cardiac Monitoring ED Physician consult Hospitalist for continued care eGFR Extra SST Tube Influenza A&B Ag Oxygen Therapy PT & PTT Rapid COVID Antigen ([facility]) Saline Lock Insert Troponin 0 Hr. Troponin 3 Hr. Troponin 6 Hr. Troponin 9 Hr. XR Chest Single View Future Appointments Appointment Date:03/22/2024 10:45:00 AM Scheduled Provider:Brian LUGO, Kayla Dubose Location:[facility] Appointment Type:URO Office Visit Diagnostic Tests Pending * Vancomycin Level Trough 06/01/[address] [facility]10-29-2023 Hospital Discharge instructions Patient Education 05/30/2023 [...] managed at home with rest, fluids, and mdhy-ynl-yustgcx medicines. Serious symptoms may be treated in [...] water are not available, use alcohol-based hand diesel powerplant mechanic. Make sure that all people in your [...] managed at home with rest, fluids, and fpve-ccg-dijdasu medicines. This information is not intended to replace advice given to you by your health care provider. Make sure you discuss any questions you have with your health care provider. Document Revised: 07/09/2022 Document Reviewed: 07/09/2022 [employer] Patient Education 2022 [employer]. Follow Up Care 05/27/2023 13:13:17 With:Sree LUGO, Pawel Fried, PUL, FATOUMATA Address: [address] [place] [address] [facility] ([facility] [place] [address]- When:2 to 4 weeks Comments:Call for followup appointment for possible outpatient sleep study [facility]09-08-2023 Evaluation note* Encounter Date Diagnosis Assessment Notes Treatment Notes Treatment Clinical Notes Apr, Lumbar spondylosis (ICD-10 - M47 .453) [facility] Other 08-16-2023 Hospital Discharge instructions Patient Education [...] provider. Document Revised: 11/27/2021 Document Reviewed: 11/27/2021 [employer] Patient Education 2022 [employer]. Follow Up Care 12/02/2022 09:06:34 With:Brian LUGO, Kayla Dubose URL, URO Address: When:Within 1 Year(s) Comments:w/PSA [facility] 08-10-2023 Evaluation note* Encounter Date Diagnosis Assessment Notes Treatment Notes Treatment Clinical Notes Mar, Lumbar spondylosis (ICD-10 - M47 .816) [facility] Other 07-11-2023 Evaluation note* Encounter Date Diagnosis Assessment Notes Treatment Notes Treatment Clinical Notes Jan, Lumbar spondylosis (ICD-10 - M47 .816) [facility] Other 06-06-2023 Evaluation note* Encounter Date Diagnosis Assessment Notes Treatment Notes Treatment Clinical Notes Dec, Lumbar spondylosis (ICD-10 - M47 .816) [facility] Other 05-31-2023 Evaluation note* Encounter Date Diagnosis Assessment Notes Treatment Notes Treatment Clinical Notes November, Wellness examination (ICD-10 - Z 00.00) Healthy diet and exercise. Reviewed age-appropriate preventive testing recommended. - UTD w/ CRC screening - hx of prostate cancer w/o s/s recurrence November,OSA (obstructive sleep apnea) (ICD-10 - G47.33)This patient is aware of the benefits associated with PANCHITO: With continued use, the patient reduces t he risk for OH, CVA, HTN, cardiac dysrhythmias and sudden cardiac deaths.The patient is also aware of the association between PANCHITO and morning headaches, daytime somnolence, fatigue and obesity, whichalso has been improved with continued use.The patient is compliant with treatment, wearing the equipment every night for greater than 4 hours.The patient is instructed to continue use of the CPAP forOSA treatment. November,Elevated cholesterol (ICD-10 - E78.00)Instructed on diet and exercise with continued statin therapy.Discussed the beneficial effects of lo wering cholesterol in reducing the risk for cerebrovascular and cardiovascular disease. November,rimary hypertension (ICD-10 - I10)This patient is instructed to consume a healthy, low-fat, low-salt diet. They are also encouraged to continue exercise to achieve/maintain a normal BMI. 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 Healthy diet and exercise encouraged November,Thrombocytopenia (ICD-10 - D69.6)Known hx w/ hematology evluation in recent past. Monitor for now. November,Lumbar spondylosis (ICD-10 - M47.816) [facility] Other 05-03-2023 Hospital Discharge instructions Patient Education [...] if anything looks unusual. Men with a lqjkmt-kizz-gpxdna risk for skin cancer may want to see a dairy management specialist (instrument maker) for an annual body check. What are the benefits of screening? Cancer screening is done to look for cancer in the very early stages, before it spreads and becomesharder to treat and before you would start to notice symptoms. Finding cancer early improves the chances of successful treatment. It may save your life. Where to find more information [employer]: www.cancer.org Centers for Disease Control and Prevention: www.cdc.gov National Cancer [place]: www.cancer.gov Contact a health care provider if: [...] provider. Document Revised: 12/15/2021 Document Reviewed: 06/14/2020 [employer] Patient Education 2022 [employer]. Follow Up Care 11/11/2021 11:50:16 With:Brian LUGO, PEDRO Bernal, URO Address: When: Unknown [facility] 03-31-2023 Evaluation note* Encounter Date Diagnosis Assessment Notes Treatment Notes Treatment Clinical Notes Sep, Lumbar spondylosis (ICD-10 - M47 .816) [facility] [employer] Other 02-28-2023 Evaluation note* Encounter Date Diagnosis Assessment Notes Treatment Notes Treatment Clinical Notes Sep, Primary hypertension (ICD-10 - I 10) This patient is instructed to consume a healthy, low-fat, low-salt diet. They are also encouraged to continue exercise to achieve/maintain a normal BMI. Sep,Elevated cholesterol (ICD-10 - E78.00)Diet and exercise with continued statin therapy. Sep,OSA (obstructive sleep apnea) (ICD-10 - G47.33)This patient is aware of the benefits associated with PANCHITO: With continued use, the patient reduces t he risk for OH, CVA, HTN, cardiac dysrhythmias and sudden cardiac deaths.The patient is also aware of the association between PANCHITO and morning headaches, daytime somnolence, fatigue and obesity, whichalso has been improved with continued use.The patient is compliant with treatment, wearing the equipment every night for greater than 4 hours.The patient is instructed to continue use of the CPAP forOSA treatment. Sep,Lumbar spondylosis (ICD-10 - M47.816)The patient is instructed to avoid bending, twisting or lifting. They are to use intermittent heat and ice as needed. They may schedule a massage or gentle manipulation. They may safely use Tylenol as needed. Sep,astroesophageal reflux disease with esophagitis without hemorrhage (ICD-10 - K21.00)Diet instructions: Smaller portions, avoid eating and laying flat, avoid eating or drinking prior to bedtime. Weight loss. Sep,Thrombocytopenia (ICD-10 - D69.6)Monitor for now, chronic changes w/ WBC, Hgb and Plts. 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 s/p prostatectomy. f/u Sep,rimary insomnia (ICD-10 - F51.01)Consistent sleep routine. Sep,Hx of squamous cell carcinoma (ICD-10 - Z85.89)TonsilNo s/s recurrence [facility] Other Evaluation + Plan note Future Appointments Appointment Date:03/17/2023 10:30:00 AM Scheduled Provider:Kayla Torres MD Location:[facility] Appointment Type:URO Office Visit Diagnostic Tests Pending * PSA Total 12/02/22 [facility] evaluation + Plan note Future Appointments Appointment Date:03/22/2024 10:45:00 AM Scheduled Provider:Kayla Torres MD Location:[facility] Appointment Type:URO Office Visit [facility] evaluation + Plan note Future Appointments Appointment Date:06/07/2024 10:45:00 AM Scheduled Provider:Kayla Torres MD Location:[facility] Appointment Type:URO Office Visit [facility] evaluation + Plan note Future Appointments Appointment Date:01/10/2025 10:45:00 AM Scheduled Provider:Kayla Torres MD Location:[facility] Appointment Type:URO Office Visit Diagnostic Tests Pending * PSA Total 06/08/24 [facility] evaluation + Plan note Future Appointments Appointment Date:01/16/2026 11:00:00 AM Scheduled Provider: Location:[facility] Appointment Type:URO Nurse Visit Appointment Date:01/23/2026 10:00:00 AM Scheduled Provider:Kayla Torres MD Location:[facility] Appointment Type:URO Office Visit Future Scheduled Tests Laboratory* PSA Total 01/17/25 [facility] evaluation noteNo [facility] [facility] [facility] Other Evaluation note* Diagnosis Onset Date Resolution Status Gastroesophageal reflux disease with eso phagitis without hemorrhage acuteHigh cholesterolacuteHypertensionacuteLumbar spondylosisacuteMild episode of recurrent major depressive disorderacuteOSA (obstructive sleep apnea)acute Unexplained weight lossacute [facility] Work Phone: Evaluation note* Diagnosis Onset Date Resolution Status Gastroesophageal reflux disease with eso phagitis without hemorrhage acuteHigh cholesterolacuteHypertensionacuteLumbar spondylosisacuteMild episode of recurrent major depressive disorderacuteOSA (obstructive sleep apnea)acute Wellness examinationacute [facility] Work Phone: Evaluation note* Diagnosis Onset Date Resolution Status Gastroesophageal reflux disease with eso phagitis without hemorrhage acuteHigh cholesterolacuteHypertensionacuteLumbar spondylosisacuteMild episode of recurrent major depressive disorderacuteOSA (obstructive sleep apnea)acute [facility] Work Phone: Evaluation note* Diagnosis Migraine without aura and without status migrainosus, not intractable (CMS/HCC)- Primary Lumbar back pain Lumbago PANCHITO (obstructive sleep apnea) Obstructive sleep apnea (adult) (pediatric) Neck pain Cervicalgia Tremor Abnormal involuntary movements [facility] Diagnosis Major depression, recurrent, chronic (HCC) (CMS/HCC) Insomnia, unspecified type [facility] Diagnosis Major depression, recurrent, chronic (HCC) (CMS/HCC) Insomnia, unspecified type [facility]* Diagnosis Migraine without aura and without status migrainosus, not intractable (CMS/HCC)- Primary Tension headache Tremor Abnormal involuntary movements Degenerative disc disease, lumbar Lumbar back pain Lumbago Myalgia Unspecified myalgia and myositis Neck pain Cervicalgia Hypersomnia Hypersomnia, unspecified [facility]* Diagnosis Onset Date Resolution Status Admit Date Gastroesophageal reflux disease with eso phagitis without hemorrhage acuteJanuary 2024 10:48amHigh cholesterolacuteJanuary 2024 10:48am HypertensionacuteJanuary 2024 10:48amLumbar spondylosisacuteJanuary 2024 10:48amMild episode of recurrent major depressive disorderacuteJanuary 2024 10:48amOSA (obstructive sleep apnea)acuteJanuary 2024 10:48am [facility] Work Phone: Evaluation note* Diagnosis Myalgia- Primary Unspecified myalgia and myositis Migraine without aura and without status migrainosus, not intractable (CMS/HCC) Tension headache [facility] Diagnosis Migraine without aura and without status migrainosus, not intractable (CMS/HCC)- Primary documented in [facility]* Diagnosis Major depression, recurrent, chronic (HCC) (CMS/HCC) Insomnia, unspecified type documented in this encounter [facility]* Diagnosis Migraine without aura and without status migrainosus, not intractable (CMS/HCC)- Primary Myalgia Unspecified myalgia and myositis Neck pain Cervicalgia Tremor Abnormal involuntary movements [facility]* Diagnosis Onset Date Resolution Status Admit Date Anemia acuteJuly 2024 11:28amConstipationacuteJuly 2024 11:28am Gastroesophageal reflux disease with esophagitis without hemorrhageacuteJuly 2024 11:28amHigh cholesterolacuteJuly 2024 11:28amHypertensionacute Brenda 2024 11:28amLumbar spondylosisacuteJuly 2024 11:28amMild episode of recurrent major depressive disorderacuteJuly 2024 11:28amOpiate analgesic use agreement existsacuteJuly 2024 11:28amOSA (obstructive sleep apnea)acuteJuly 2024 11:28amProstate canceracuteJuly 2024 11:28amWellness examinationacuteJuly 2024 11:28am [facility] Work Phone: Evaluation note* Diagnosis Major depression, recurrent, chronic [facility] encounter [facility]* Diagnosis Major depression, recurrent, chronic Insomnia, unspecified type documented in this encounter [facility] general Narrative - Reported* Type Description Date Medical History Hyperlipidemia Medical HistoryThroat Cancer (Lt Tonsillar)Medical HistoryDepressionMedical HistoryHypertensionMedical HistoryViral warts in nostrilsMedical HistoryHistory of Lt Tonsillar SCCA + PET SCAN for rt tonsilMedical HistoryHigh Cholesterol Medical HistorySleeping DisorderMedical HistoryHeadachesMedical HistoryGERD Medical HistoryShinglesSurgical HistoryRt [id number] History Soft Palate Bx Squamous cwlphanelpj9-88-0082Wdsiwhlk HistoryNose surgery warts removedSurgical HistoryLt sybgfzarwcxmv0-92-5443Zgzfbtdb HistoryCarpal Tunnel Nzxg5612Zgfvugdjhfpijko Historypatient has never been hospitalized for Dealdrive Other History general Narrative - Reported* Type Description Date Medical History Hyperlipidemia Medical HistoryThroat Cancer (Lt Tonsillar)Medical HistoryDepressionMedical HistoryHypertensionMedical HistoryViral warts in nostrilsMedical HistoryHistory of Lt Tonsillar SCCA + PET SCAN for rt tonsilMedical HistoryHigh Cholesterol Medical HistorySleeping DisorderMedical HistoryHeadachesMedical HistoryGERD Medical HistoryShinglesSurgical HistoryRt Kwgchkotsgkds39-0-7307Krqyfqxp History Soft Palate Bx Squamous rogjxjsplzu7-68-3225Ufjsatam HistoryNose surgery warts removedSurgical HistoryLt znwetffzyocju0-38-1316Ecsyedqn HistoryCarpal Tunnel Udkv4752Oldydjjl JsjhbgxRjorkkziugi4789Rteasjhexpubrdx Historypatient has never been hospitalized for Dealdrive Other History general Narrative - Reported* Type Description Date Medical History Hyperlipidemia Medical HistoryThroat Cancer (Lt Tonsillar)Medical HistoryDepressionMedical HistoryHypertensionMedical HistoryViral warts in nostrilsMedical HistoryHistory of Lt Tonsillar SCCA + PET SCAN for rt tonsilMedical HistoryHigh Cholesterol Medical HistorySleeping DisorderMedical HistoryHeadachesMedical HistoryGERD Medical HistoryShinglesMedical HistoryFatty liver diseaseMedical HistorySmall splenic lesionsSurgical HistoryRt Bhhuptgfipyew07-7-4669Ugbmzvdg HistorySoft Palate Bx Squamous wucfwmfesxe3-40-4559Vinzmxgq HistoryNose surgery warts removedSurgical HistoryLt oactygpleyzii4-55-6666Fcnswhka HistoryCarpal Tunnel Yntc5181Jovfvepv EqevcpeQtsoafmxcah7252Zwfktzucoglqfra Historypatient has never been hospitalized for mental health [facility] [place] Other Hospital course Narrative No data available for this section [facility] Discharge instructions No data available for this section [facility] No data available for this section [facility] reason for referral (narrative)* Reason *Waiting for appt Referral for EGD and Colonoscopy for continued weight loss and mild anemia Diagnosis 1 Weight loss, uninten tional (R63.4) Referral Organization [facility] Referring Provider First Name Sammy Referring Provider Last Name Willy Referring Provider Specialty Internal Me dicine Referred Organization [facility] Gastroenterolo gy Referred Provider Jillian Rodas Referred Address [address],[address] Referred Provider Specialty Gastroentero logy Referral Priority Routine General Notes Mr. Holman presents w/ continued weight loss. There is no laboratory evidence to explain this condition. He is mildly anemic but denies dysphagia, abdominal pain, change in bowel habits, melena or hematochezia. CT abdomen/pelvis does not reveal abnormalities to explain his weight loss. Katya Archer 09/06/2023 10:42:44 AM >received today, referral faxed P2P Clinical NotesInclude CT abdomen/pelvis [facility] [employer] Other Reason for referral (narrative)No reason for referral information availableUniversity [facility] Work Phone: Summary Purpose Family History No Family History Records Found Relationship Condition Age at Onset Recorded Date/T jovanny father Arthritis Unknown HypertensionUnknownfamily memberDeceasedUnknownNot SpecifiedMalignant neoplasm of breastUnknownMalignant neoplasmUnknownDiabetes mellitusUnknownDeceasedUnknown siblingHypertensionUnknownsisterMalignant neoplasmUnknown Relationship Condition Age at Onset Recorded Date/T jovanny father Arthritis Unknown HypertensionUnknownfamily memberDeceasedUnknownmotherMalignant neoplasm of breastUnknownMalignant neoplasmUnknownDiabetes mellitusUnknownDeceasedUnknown siblingHypertensionUnknownsisterMalignant neoplasmUnknown Relationship Condition Age at Onset Recorded Date/T jovanny father Arthritis Unknown HypertensionUnknownfamily memberDeceasedUnknownmotherMalignant neoplasm of breastUnknownDiabetes mellitusUnknownDeceasedUnknownMalignant neoplasmUnknown siblingHypertensionUnknownsisterDeceasedUnknown Advance Directives No Advanced Directives Records Found Advance Directive Response Recorded Date/ Time Advance Directives No October 11 3:44pm Advance Directive Response Recorded Date/ Time Advance Directives No October 11 2:44pm Chief Complaint and Reason for Visit Chief Complaint Admit Date Wellness February 20, 2025 11:2 8am 2-3 month follow up March 21, 2025 2: 02pm Reason for Visit Admit Date Anemia February [...] 11:28am Opiate analgesic use agreement exists Ju 2024 11:28am PANCHITO (obstructive sleep apnea) February 20, 2025 11:28am Prostate cancer February 20, 2025 11:2 8am Wellness examination February 20, 2025 11: 28am Chief Complaint Amb Documentation Check upReason for VisitGastroesophageal reflux disease with esophagitis without hemorrhage High cholesterol Hypertension Lumbar spondylosis Mild episode of recurrent major depressive disorder PANCHITO (obstructive sleep apnea) Unexplained weight loss Chief Complaint wellness Reason for Visit Gastroesophageal ref lux disease with esophagitis without hemorrhage High cholesterol Hypertension Lumbar spondylosis Mild episode of recurrent major depressive disorder PANCHITO (obstructive sleep apnea) Wellness examination Chief Complaint 3 Month f/u Reason for Visit Gastroesophageal ref lux disease with esophagitis without hemorrhage High cholesterol Hypertension Lumbar spondylosis Mild episode of recurrent major depressive disorder PANCHITO (obstructive sleep apnea) Chief Complaint Admit Date 3 month f/u August 17, 2024 1 0:48am Reason for Visit Admit Date Gastroesophageal reflux dise ase with esophagitis without hemorrhage August 17, 2024 10:48am High cholesterol August 17, 2024 1 0:48am Hypertension August 17, 2024 1 0:48am Lumbar spondylosis August 17, 2024 1 0:48am Mild episode of recurrent major depressi ve disorder August 17, 2024 10:48am PANCHITO (obstructive sleep apnea) August 172024 10:48am Chief Complaint Admit Date Wellness February 20, 2025 11:2 8am Chief Complaint Admit Date 2-3 month follow [...] back pain May 31, 2025 1 1:15am Reason for Referral SpecialtyDiagnoses / ProceduresReferred By ContactReferred To Contact Diagnoses Major depression, recurrent, chronic (HCC) (CMS/HCC) Abi Green, JOCKEY ROOM CUSTODIAN-DENTAL LABORATORY SUPERVISOR [address] [facility] [address] [place] [address] Referral IDStatusReasonStart DateExpiration DateVisits RequestedVisits [id number] Review/ Additional Source Comments REASON FOR VISIT (unrecogniz ed section and content) ReasonCommentsMigraineReasonCommentsMed ManagementFollow-upReasonComments MigraineNeck PainTremorsBack PainReasonCommentsMed ManagementFollow-upReason Onset DateCommentsMed Kagfpc1403/19/2025 Patient Care team informatio n (unrecognized section and content) Team Status: Active Member Role Status Dates Sammy Doll DO Primary Care Provider Active Team Status: Active Member Role Status Main Doll DO Primary Care Provider Active Start: December 29, 2024 COCO Carrington-CAttenlucho ProviderActiveStart: December 29, 2024 Team Status: Inactive Member Role Status Main Doll DO Primary Care Provider Active Start: February 20, 2025 End: February 20Karla Campbell ProviderActiveStart: February 20, 2025 End: February 20, 2025 Team Status: Inactive Member Role Status Main Doll DO Primary Care Provide r, Attending Provider Active Start: May 16, 2024 End: May 16, 2024 Team Status: Active Member Role Status Dates Susan Hansen MD Primary Care Provider Active Start: September 16, 2023 SIERRA BeckettAAtelo ProviderActiveStart: September 16, 2023 Team Status: Inactive Member Role Status Main Doll DO Primary Care Provide r, Attending Provider Active Start: November 10, 2023 End: November 10, 2023 Team Status: Active Member Role Status aMin Doll DO Primary Care Provide r, Attending Provider Active Start: January 17, 2024 Team Status: Inactive Member Role Status Main Doll DO Primary Care Provide r, Attending Provider Active Start: February 10, 2024 End: February 10, 2024Team MemberRelationshipSpecialtyStart DateEnd Date Sammy Doll MD [address] [place] [phone] PCP - GeneralInternal Medicine01/08/23Team MemberRelationshipSpecialtyStart Date End Date Sammy Doll MD [address] [place] [facility] [address] PCP - GeneralInternal Medicine01/08/23Team MemberRelationshipSpecialtyStart Date End Date Sammy Doll MD [address] [place] [facility] [address] PCP - GeneralInternal Medicine01/08/23Te MemberRelationshipSpecialtyStart Date End Date Sammy Doll MD [address] [place] [facility] [address] PCP - GeneralInternal Medicine01/08/23Te MemberRelationshipSpecialtyStart Date End Date Sammy Doll MD [address] [place] [facility] [place] [phone] PCP - GeneralInternal Medicine01/08/23Te MemberRelationshipSpecialtyStart Date End Date Sammy Doll MD [address] [place] [facility] [address] PCP - GeneralInternal Medicine01/08/23 Team Status: Inactive Member Role Status Dates Sammy Doll DO Primary Care Provide r, Attending Provider Active Start: August 17, 2024 End: August 17, 2024Team MemberRelationshipSpecialtyStart DateEnd Date Sammy Doll MD [address] [place] [facility] [address] PCP - GeneralInternal Medicine01/08/23 Abi Green, JOCKEY ROOM CUSTODIAN-DENTAL LABORATORY SUPERVISOR [address] [facility] [address] [place] [address] Nurse PractitionerPsychiatry1 Michelle Haro PA [address] [place] [address] Physician AssistantNeurology1Te MemberRelationshipSpecialtyStart DateEnd Date Sammy Doll MD [address] [place] [address] [facility] - [facility]01/08/23 Abi Green, JOCKEY ROOM CUSTODIAN-DENTAL LABORATORY SUPERVISOR [address] [address] Nurse PractitionerPsychiatry1 Michelle Haro PA [address] [place] [address] Physician AssistantNeurologTe MemberRelationshipSpecialtyStart DateEnd Date Sammy Doll MD [address] [place] [address] [facility] - [facility]01/08/23 Abi Green, JOCKEY ROOM CUSTODIAN-DENTAL LABORATORY SUPERVISOR [address] [facility] [address] [place], [place] [id number] Nurse PractitionerPsychiatry1 Michelle Haro PA [address] [place] [address] Physician AssistantNeurology1Team MemberRelationshipSpecialtyStart DateEnd Date Sammy Doll MD [address] [facility] [address] PCP - GeneralInternal Medicine01/08/23 Abi Green, JOCKEY ROOM CUSTODIAN-DENTAL LABORATORY SUPERVISOR [address] [facility] [address] [place] [address] Nurse PractitionerPsychiatry1 Michelle Haro PA [address] [place] [address] Physician AssistantNeurology1Te MemberRelationshipSpecialtyStart DateEnd Date Sammy Doll MD [address] [place] [facility] [address] PCP - GeneralInternal Medicine01/08/23 Abi Green, JOCKEY ROOM CUSTODIAN-DENTAL LABORATORY SUPERVISOR [address] [address] Nurse PractitionerPsychiatry1 Michelle Haro PA [address] [place] [address] Physician AssistantNeurology1Te MemberRelationshipSpecialtyStart DateEnd Date Sammy Doll MD [address] [place] [facility] [address] PCP - GeneralInternal Medicine01/08/23 Abi Green, JOCKEY ROOM CUSTODIAN-DENTAL LABORATORY SUPERVISOR [address] [facility] [address] [place] [address] Nurse PractitionerPsychiatry1 Michelle Haro PA [address] [place] [address] Physician AssistantNeurology1/Te MemberRelationshipSpecialtyStart DateEnd Date Sammy Doll, DO PCP - [facility]01/08/23 Abi Green, JOCKEY ROOM CUSTODIAN-DENTAL LABORATORY SUPERVISOR [address] [facility] [address] [place] [address] Nurse PractitionerPsychiatry1 Michelle Haro PA [address] [place] [address] Physician AssistantNeurologTe MemberRelationshipSpecialtyStart DateEnd Date Sammy Doll, PCP - [facility]01/08/23 Abi Green, JOCKEY ROOM CUSTODIAN-DENTAL LABORATORY SUPERVISOR [address] [facility] [address] [place] [address] Nurse PractitionerPsychiatry1 Michelle Haro PA [address] [place] [address] Physician AssistantNeurologTe MemberRelationshipSpecialtyStart DateEnd Date Sammy Doll DO PCP - GeneralInternal Medicine01/08/23 Abi Green, JOCKEY ROOM CUSTODIAN-DENTAL LABORATORY SUPERVISOR [address] [facility] [address] [place] [address] Nurse PractitionerPsychiatry1 Michelle Haro PA [address] [facility] [address] [place] [address] Physician AssistantNeurology1 Team Status: Active Member Role Status Dates Sammy Doll DO Primary Care Provider Active Start: February 28, 2025 Sammy Doll DOAttending ProviderActiveStart: February 28, 2025 Team Status: Inactive Member Role Status Dates Sammy Doll DO Primary Care Provider Active Start: March 21, 2025 End: March 21, 2025Saarminda Martinez WVTC-XPE-FSipskaztd ProviderActiveStart: March 21, 2025 End: March 21, 2025 Team Status: Active Member Role/Relationship Status Dates Sammy Doll DO Primary Care Provider Active Team Status: Inactive Member Role/Relationship Status Dates Sammy Doll DO Primary Care Provider Active Start: March 21, 2025 End: March 21, 2025Saarminda Martinez ZGAF-RKC-FAyuktiseh ProviderActiveStart: March 21, 2025 End: March 21, 2025 Team Status: Inactive Member Role/Relationship Status Dates Sammy Doll DO Primary Care Provider Active Start: May 31, 2025 End: May 31enjesus Doll DOAttending ProviderActiveStart: May 31, 2025 End: May 31, 2025Team MemberRelationshipSpecialtyStart DateEnd Date Sammy Doll DO [address] [place] [address] PCP - GeneralInternal Medicine01/08/23 Abi Green, JOCKEY ROOM CUSTODIAN-DENTAL LABORATORY SUPERVISOR [address] [facility] [address] [place] [address] Nurse PractitionerPsychiatry1 Michelle Haro PA [address] [place] [address] Physician AssistantNeurolog08/30/24Team MemberRelationshipSpecialtyStart DateEnd Date Sammy Doll DO [address] [place] [phone] PCP - GeneralInternal Medicine01/08/23 Abi Green, JOCKEY ROOM CUSTODIAN-DENTAL LABORATORY SUPERVISOR [address] [facility] [address] [place] [address] Nurse PractitionerPsychiatry1 Michelle Haro PA [address] [place] [address] Physician AssistantNeurolog08/30/24 (unrecognized sect ion and content) No Status Records FoundNo Status Records FoundNo Status Records Found INFORMATION SOURCE (unrecogn ized section and content) DATE CREATED AUTHOR 12/04/2022 [facility] DATE CREATED AUTHOR AUTHOR'S ORGANIZ ATION 02/04/2025 [facility] DATE CREATED AUTHOR AUTHOR'S ORGANIZ ATION 06/03/2025 [facility] EPIC Goals (unrecognized section and content) Goals may [...] BE BASED ON THE PRIMARY CLINICAL RECORDS. [facility] [facility]. provides no warranty or guarantee of the accuracy or completeness of information in this document.
== END 2025-06-13 09:50 | disposition home or self-care (01) ==
LOC: RAD 09:51
PROVIDERS: PCP Internal Medicine; Visit Provider Internal Medicine
DX: M54.50 Low back pain, unspecified (principal); M47.816 Spondylosis without myelopathy or radiculopathy, lumbar region
CPT/HCPCS: 72114

== ENCOUNTER 2025-06-25 09:21 | Outpatient (OUT) | payer BC, MEDICARE, SELFPAY ==
--- NOTE | 2025-06-25 09:26 | MR_ITS ---
The [address] [address] Patient Name: YENI CONNOR MRN: [id number] date: 1960 Sex: M Assigned Patient Location: MRI Current Patient Location: MRI Accession/Order Number: [id number] Exam Date: 06/25/2025 09:47 Report Date: 06/25/2025 11:49 At the request of: ZULEIKA DOLL DO Procedure: MR lumbar spine wo con MR lumbar spine wo con 06/25/2025 10:23 AM SIGNS AND SYMPTOMS: ^Low Back Pain PROTOCOL: Multiplanar multisequence MR images of the lumbar spine without IV contrast COMPARISON: None. FINDINGS: The bones of the lumbar spine are in anatomic alignment. There is preservation of vertebral body heights. There is mild disc height loss at L2-3 with moderate disc height loss at L3-L4 and L4-L5. There is Schmorl's node formation in the endplates at L2, L3, and L4. The marrow signal is within normal limits. The conus terminates at the mid L1 vertebral body level. No epidural or paraspinous fluid collection is appreciated. At T12-L1: There is a normal disc, central canal, and neural foramen. At L1-L2: There is a normal disc, central canal, and neural foramen. At L2-L3: There is a broad-based disc bulge with facet hypertrophy and ligamentum flavum thickening. There is mild spinal canal stenosis with mild bilateral neural foraminal narrowing. At L3-L4: There is a broad-based disc bulge with facet hypertrophy. There is mild spinal canal narrowing with moderate left and mild right neural foraminal narrowing. At L4-L5: There is a circumferential disc bulge with facet hypertrophy. There is mild spinal canal stenosis with mild left and moderate right neural foraminal stenosis. At L5-S1: There is a broad-based disc bulge with facet hypertrophy. There is no spinal canal narrowing. There is mild right neural foraminal narrowing. MR/MR lumbar spine wo con IMPRESSION: At L3-L4: There is a broad-based disc bulge with facet hypertrophy. There is mild spinal canal narrowing with moderate left and mild right neural foraminal narrowing. At L4-L5: There is a circumferential disc bulge with facet hypertrophy. There is mild spinal canal stenosis with mild left and moderate right neural foraminal stenosis. Lesser degrees of degenerative changes are noted as above. Impression dictated by: Antione Howard M.D. 06/25/2025 11:49 AM Dictation Location: [place] [address] Electronically authenticated by: [id number] Y Date: 06/25/2025 11:49
--- OUTSIDE RECORDS SUMMARY | 2025-06-25 09:28 | XMS_ITS | Clinical Summary ---
Author Organization [facility] Healthcare Address [address] [place] [address] Care Team Providers Care Inspector Hairspring Name Role Phone WillySammy Primary Care Provider Lilliam Dominguez LONG CHAIN DYEING MACHINE OPERATOR-TOBACCO BUYER Unavailable Michelle Haro Unavailable Allergies No known [...] Active Problems ProblemNoted DateDiagnosed DateMajor depression, recurrent, zwbhtmm7812/12/2022 Jdekybdx79/13/4278Eeynzyvispc02/21/2021ircadian rhythm sleep disorder, unspecified type02/19/2021OSA (obstructive sleep apnea)12/05/2020egenerative disc disease, sqptkl1010/31/2020 Assessment & Plan (12/06/2023 7:49 PM EDT): [...] with them. Back pain persists at baseline. Roxzyogezma22/02/2020 Assessment & Plan (12/06/2023 7:48 PM EDT): *11/01/2019 Michelle Haro EMG of the bilateral lower extremities 03/2019 was normal. Sbhsljly99/24/2018 Assessment & Plan (12/06/2023 7:40 PM EDT): *07/05/2023 TomPrecious Patient previously experiencing increase in headaches, which he attributed to stopping his Butrans patch due to cost from another provider. He continues on Depakote. Trileptal was ineffective. PCP ismonitoring labs closely. He continues with headaches periodically but has not been having many migraines. Hzpzemx9811/23/2017Muscle spasm11/23/2017 Assessment & Plan (12/06/2023 7:42 PM [...] but benefits are not lasting. Encounters DateTypeDepartmentCare VsfuXqhhiycoaxl74/31/2025 10:30 AM EDTOffice Visit [facility] [address] [facility] [address] [place] [address] Lilliam Dominguez LONG CHAIN DYEING MACHINE OPERATOR-TOBACCO BUYER Major depression, recurrent, chronic; Insomnia, unspecified type06/01/2025amboo flowsheet [facility] [address] [facility] [address] [place] [address] Lilliam Dominguez APRN-RICHARD 06/01/20254249Pcyhsx75/23/2025Refill [facility] [place] [facility] [address] [place] [address] Lilliam Dominguez LONG CHAIN DYEING MACHINE OPERATOR-TOBACCO BUYER Major depression, recurrent, chronic ; Insomnia, unspecified typefrom Last 3 Months Family History Medical HistoryRelationNameCommentsCancerBrother 1DiabetesBrother 1Hypertension Brother 1ArthritisFatherHypertensionFatherBreast cancerMotherDiabetesMother HypertensionMotherBreast cancerSister 1(2)RelationNameStatusCommentsBrother 1 DeceasedBrother 2(2)AliveFatherAliveMotherDeceasedSister 1(2)DeceasedSister 2(2) AliveSon(4)Alive Social History Tobacco UseTypesPacks/DayYears UsedDateSmoking Tobacco: NeverSmokeless Tobacco: Never Tobacco Cessation:Counseling Given: Not Answered Alcohol UseStandard Drinks/WeekCommentsNot Currently0 (1 standard drink = 0.6 oz pure alcohol)Caffeine: 1-2 cups/day coffeePHQ-2AnswerDate RecordedPatient Health Questionnaire-2 Hnogi715EducationAnswerDate RecordedWhat is the highest level of school you have completed or the highest degree you have received?Some college, no jcoibj4301/21/2023Sex and Gender InformationValueDate RecordedSex Assigned at BirthNot on fileLegal UneIfzy0110/14/2022 7:23 PM EDTGender Identity Male10/14/2022 7:23 PM EDTSexual OrientationNot on fileOccupationIndustryJob Start DateJob End DateDisabledNot on fileNot on fileNot on file Last Filed Vital Signs Vital SignReadingTime TakenCommentsBlood Pqskcmpw763/8606/01/2025 10:25 AM EDT Saiwd245806/01/2025 10:25 AM EDTTemperature--Respiratory Tajr926208/30/2024 10:25 AM ESTOxygen Jlpkwrlxoc97%12/18/2024 10:46 AM EDTInhaled Oxygen Concentration-- Bbapxq15 kg (216 lb)06/01/2025 10:25 AM RAWEsdmel925.9 cm (6')12/18/2024 10:46 AM EDTBody Mass Index29.29012/18/2024 10:46 AM EDT Plan of Treatment DateTypeDepartmentCare Team (Latest Contact Info)Uqqnyuvbllu50/30/2026 11:30 AM ESTOffice Visit [facility] [address] [place] [address] Lilliam Dominguez, LONG CHAIN DYEING MACHINE OPERATOR-TOBACCO BUYER [address] [place] [address] Health MaintenanceDue DateLast DoneCommentsCT Zbvgaytkgmvh1958FIT-DNA 1958FIT1958FOBT1958 6582Orxgafmibfnna1958Pneumococcal Vaccine: 65+ Years (1 of 1 - PCV)01/07/2008COVID-19 Vaccine (3 - season) , 07/15/2021, 10/07/2020Influenza Vaccine (#1)2025 05/16/2024, 07/14/2022, 06/30/2021, Additional history existsColonoscopy /olorectal Cancer Fmvyxxlfe11/26/2034 [place] [address] Care Teams Team MemberRelationshipSpecialtyStart DateEnd Sammy Aguilera DO [address] [facility] [place] [id number] PCP - GeneralInternal Medicine01/08/23 Lilliam Dominguez APRN-TOBACCO BUYER [address] [facility] [address] [place], [place] [id number] Nurse PractitionerPsychiatry1 Michelle Haro PA [address] [facility] [facility] [address] [place] [address] Physician AssistantNeurology1/
--- OUTSIDE RECORDS SUMMARY | 2025-06-25 09:28 | XMS_ITS | Clinical Summary ---
Author Organization [facility] tem Address [id number] [place] [address] Care Team Providers Care Rural Route Carrier Name Role Phone Unavailable Primary Care Provider [...] Tobacco UseTypesPacks/DayYears UsedDateSmoking Tobacco: Never AssessedChildcare AnswerDate FnpccscxQbminveatOkqfxtw04/12/2019EmploymentAnswerDate Recorded AaedgxlmrsOplmkjh74/12/2019Sex and Gender InformationValueDate RecordedSex Assigned at BirthNot on fileLegal GuuBjxg5403/07/2015 12:05 PM EDTGender Identity Not on fileSexual OrientationNot on file Last Filed Vital Signs Vital SignReadingTime TakenCommentsBlood Mpwulreq259/8609 8:04 AM EDT Izovg892904/06/2013 8:04 AM EDTTemperature--Respiratory Rate--Oxygen Saturation-- Inhaled Oxygen Concentration--Weight--Height--Body Mass Index-- Plan of Treatment Health MaintenanceDue DateLast DoneCommentsDepression Moemlhtiz13/07/1970Tobacco Zktwxthtm63/07/1970Adult BMI Psyslfojl51/07/1976DTaP,Tdap and Td Vaccines (1 - Tdap)1977Zoster (Shingles) Vaccine (1 of 2)01/07/2008Fall Risk Screening 2023Influenza Mljjykk3604/02/2025RSV ( or age 60+ yrs) (1 - 1-dose 75+ series)2033 Medical Devices Not on file
--- OUTSIDE RECORDS SUMMARY | 2025-06-25 09:28 | XMS_ITS | Clinical Summary ---
Author Organization [facility] Address [address] [place] [address] Care Team Providers Care Poultry Veterinarian Name Role Phone Sammy Aguilera Primary Care Provider [phone] Allergies No known active allergies Medications MedicationSigDispense [...] TABLETS BY MOUTH 3 TIMES A DAY TZUTFS1911/20/2019Active Active Problems ProblemNoted DateDiagnosed DatePeyronie's kwnmfwo6812/16/2011 Immunizations ImmunizationAdministration DatesNext Dueinfluenza (IIV3) vaccine, trivalent (AFLURIA, FLULAVAL, FLUVIRIN, FLUZONE)05/24/2015influenza (ccIIV4) vaccine, age 6+ mo, quadrivalent, PF (FLUCELVAX)08/12/2018influenza vaccine, unspecified pcqfmqgzvca11/20/2017tetanus diphtheria pertussis (Tdap) vaccine, age 7+ yr (ADACEL, BOOSTRIX)05/21/2016 Family History Medical HistoryRelationCommentsArthritisFatherHypertensionFatherBreast Cancer MotherDiabetesMotherHypertensionMotherRelationStatusCommentsFatherAliveMother Social History Tobacco UseTypesPacks/DayYears UsedDateSmoking Tobacco: FormerCigarettes Smokeless Tobacco: NeverAlcohol UseStandard Drinks/WeekCommentsNot Asked0 (1 standard drink = 0.6 oz pure alcohol)Area Deprivation IndexAnswerDate Recorded National Score (1-100), lower number is lower riskNot on file07/10/2020State Score (1-10), lower number is lower riskNot on file07/10/2020Data from: https://www.neighborhoodatlas.medicine.[facility].edu/. Last address used for calculationNot on file07/10/2020Sex and Gender InformationValueDate RecordedSex Assigned at BirthNot on fileLegal XauOwbs61/02/2012 10:15 AM ESTGender Identity Not on fileSexual OrientationNot on file Last Filed Vital Signs Vital SignReadingTime TakenCommentsBlood Bkuupyzo283/5807 2:02 PM EDT Fufcs216802/23/2020 2:02 PM DGHYikpgpqyvtj91.6 ??C (97.9 ??F)02/23/2020 2:02 PM EDTRespiratory Lbzw372802/23/2020 2:02 PM EDTOxygen Nywdktjqws19%02/23/2020 2:02 PM EDTInhaled Oxygen Concentration--Zmprsg75.6 kg (215 lb 3.2 oz)02/23/2020 2:02 PM WVDUbnnrr717.9 cm (6' 0.01 )02/23/2020 2:02 PM EDTBody Mass Index29.18 02/23/2020 2:02 PM EDT Plan of Treatment Health MaintenanceDue DateLast DoneCommentsAbdominal Aortic Aneurysm Screening 8Anxiety Pamcsguyg08/07/1976Depression Rvlngxuuj40/07/1976Hepatitis C Szyulpiqy25/07/1976Lipid Scfifyskf58/07/1993CT Gtmedbhqhwtg50/07/2003Cologuard (FIT-DNA)01/06/20036939Aevpwjiddxs86/07/2003Colorectal Cancer Lwuwdwtxh31/07/2003 Fecal Occult Blood2003Prostate Cancer Screening Eojyfuqnvb25/07/2003 Slgnjajghcmfn71/07/2003Pneumococcal Vaccine: 50+ (1 of 1 - PCV)01/07/2008 Shingrix Vaccine (1 of 2)01/07/2008Diabetes Xnsrohugc69, 01/31/2020Advance Directive Omoxvbvlen71/01/2025ovid-19 Vaccine (1 - season)2025Influenza Vaccine (#1), 05/21/2017, 05/24/2015DTaP,Tdap,Td Vaccine (2 - Td or Tdap)RSV Vaccine (1 - 1-dose 75+ series)2033 Procedures Procedure NamePriorityDate/TimeAssociated DiagnosisCommentsCOMPREHENSIVE METABOLIC LICXHJvofnjv88/24/2020 1:53 PM EDT Other pancytopenia (HCC) from Last 3 Months or Most Recently Relevant to Health Maintenance Results * (ABNORMAL) COMP METABOLIC PANEL (02/23/2020 1:53 PM EDT)ComponentValueRef RangeTest MethodAnalysis TimePerformed AtPathologist SignatureProtein, Total 6.2(L)6.3 - 8.0 g/dL02/23/2020 2:35 PM [facility] Cancer CareAlbumin4.23.9 - 4.9 g/dL02/23/2020 2:35 PM [facility] Cancer CareCalcium9.58.5 - 10.2 mg/dL02/23/2020 2:35 PM [facility] CareBilirubin, Total0.40.2 - 1.3 mg/dL02/23/2020 2:35 PM [facility] Cancer CareAlkaline Jjsouvlvehh7154 - 113 U/L 02/23/2020 2:35 PM [facility] Cancer RprsYQR0905 - 40 U/L 02/23/2020 2:35 PM [facility] Cancer AcgcLhcjiyc558(H)74 - 99 mg/dL02/23/2020 2:35 PM [facility] Cancer Care Comment: The [place] Diabetes Association (ADA) provides guidance for cutoff [...] Standards of Medical Care in Diabetes 2016, [place] [employer] Association. Diabetes Care. 2016.39(Suppl 1). SHX244 - 24 mg/dL02/23/2020 2:35 PM [facility] Creatinine1.32(H)0.73 - 1.22 mg/dL02/23/2020 2:35 [facility] FdmwDqcgta385674 - 144 mmol/L02/23/2020 2:35 PM EDCommunity [facility] Cancer CarePotassium4.93.7 - 5.1 mmol/L02/23/2020 2:35 PM EDT [facility] Cancer AskkXnzgjqty84559 - 105 mmol/L02/23/2020 2:35 PM [facility] Cancer PncoVA224(H)22 - 30 mmol/L 02/23/2020 2:35 PM [facility] Cancer CareAnion Gap6(L)9 - 18 mmol/L02/23/2020 2:35 PM [facility] RxyhVOO5034 - 54 U/L02/23/2020 2:35 PM EDCommunity [facility] Cancer CareeGFR->6007 2:35 PM EDTCMemorial Hospital Cancer CareeGFR- All Other Races55.02/23/2020 2:35 PM EDCommunity [facility] Comment: eGFR (Estimated GFR) Units [...] StatusVivek Bhavya LUGOLABORATORYFinal ResultPerforming OrganizationAddressCity/State/ZIP CodePhone Number [address] [address] [facility] [address] [place], [place] from Last 3 Months or Most Recently Relevant to Health Maintenance Insurance Care Teams Team MemberRelationshipSpecialtyStart DateEnd Date Sammy Aguilera DO [address] [place] [address] PCP - GeneralInternal Medicine01/22/20
--- OUTSIDE RECORDS SUMMARY | 2025-06-25 09:42 | XMS_ITS | CCD ---
Author Organization [facility] Care Team Providers Care Business Services Specialist Sales Name Role Phone Sammy Doll Unavailable SAMMY DOLL Primary Care Physician [phone] KAYLA MCMAHON Attending Unavailable KAYLA MCMAHON Admitting Unavailable SAMMY DOLL Primary Care Unavailable SUSAN BRIDGES Consulting Unavailable SAMMY DOLL Attending Unavailable SAMMY DOLL Consulting Unavailable SAMMY DOLL Primary Care Unavailable SAMMY DOLL Admitting Unavailable Sammy Doll MD Primary Care Provider Angelica ASSEMBLY LINE INSPECTOR-ENVIRONMENTAL COMPLIANCE MANAGERAbi Unavailable Michelle Lance Unavailable Sammy Doll DO Primary Care Provider Kayla Torres Attending Unavailable Kayla Torres Attending Unavailable Kayla Torres Attending Unavailable SUSAN BRIDGES Attending Unavailable Kayla Torres Attending Unavailable Sammy Doll DO Primary Care Provider [phone] Susan Bridges PA-C Attending Provider Sammy Doll DO Attending Provider Michelle Lance Unavailable Juan ASSEMBLY LINE INSPECTOR-YOKE SETTER-CTawny Attending Provider Sammy Doll DO Primary Care Provider Sammy Dlol DO Attending Provider Sammy Doll DO Primary Care Provider Tahir SEPULVEDA Michelle Unavailable MICHELLE HARO Attending Unavailable ABI GREEN Attending Unavailab PRECIOUS Kirk Attending Unavailable ABI GREEN Attending Unavailab MICHELLE Llanos Attending Unavailable ABI GREEN Attending Unavailab le Allergies Allergy ClassificationReported Allergen(s)Allergy TypeDate of OnsetReaction(s) Facility (1 source)patient allergy list reviewed by nurse or physiciaPropensity to adverse -[phone]:[facility] Other ([facility] source)Allergies ReconciledPropensity to adverse reactionsMid [facility] Other (1 source)No Known Medication Allergies; Translations: [No Known Medication Allergies]Propensity to adverse reactions (disorder)[facility] Medications Current Medications MedicationDrug Class(es)DatesSig (Normalized)Sig (Original)amantadine hydrochloride 100 mg oral capsule (20 sources)Influenza A M2 Protein InhibitorStart: 06-01-2024 End: 11-60-1373mxve 1 capsule by mouth at bedtimeamantadine (Symmetrel) 100 MG capsule Indications: Tremor TAKE 1 CAPSULE (100 MG) BY MOUTH IN THE MORNING AND BEFORE BEDTIME 180 capsule 1 12/19/2024 ActiveStart: 51-62-8542rwfa 1 capsule by mouth every other dayAmantadine Hcl 100 mg capsule Active 100 MG PO .QOD February 10, 2024 12:00am Complies with drug therapyamLODIPine 2.5 mg / benazepril hydrochloride 10 mg oral capsule (20 sources)Dihydropyridine Calcium Channel Matilde, Angiotensin Converting Enzyme InhibitorStart: 23-13-6065aidb 1 capsule by mouth once dailyAmlodipine- Benazepril 2.5-10 mg capsule Active 0 .ROUTE .COMPLEX 90 3 October 18, 2024 7:14am TAKE 1 CAPSULE BY MOUTH ONCE A DAY DIRECTED FOR 90 DAYS Complies with drug therapyStart: 07-01-2023 End: 22-81-7404jhrc 1 capsule by mouth once dailyAmlodipine-Benazepril 2.5-10 mg capsule Discontinued 1 CAP PO Daily November 06, 2023 12:00am October 18, 2024 7:14amStart: 20-55-0558jlwf 1 capsule by mouth every twenty-four hoursLotrel 10- 20 MG 1 capsule Orally daily for 90 days 30 Aug, 2023 Activetake 1 capsule by mouth every twenty-four hoursLotrel 10-40 MG 1 capsule Orally daily Active ARIPiprazole 10 mg oral tablet (20 sources)Atypical AntipsychoticStart: 78-80-3715fyaa 1 tablet by mouth in the morningARIPiprazole (Abilify) 10 MG tablet Indications: Major depression, recurrent, chronic Take 1 tablet(10 mg) by mouth in the morning. 90 tablet 06/01/2025 ActiveStart: 93-25-9852ezll 1 tablet by mouth in the morning ARIPiprazole (Abilify) 10 MG tablet Indications: Major depression, recurrent, chronic Take 1 tablet(10 mg) by mouth in the morning. 90 tablet 06/01/2025 ActiveStart: 11-17-2023 End: 12-12-3179sgxj 1 tablet by mouth in the morningARIPiprazole (Abilify) 10 MG tablet Indications: Major depression, recurrent, chronic Take 1 tablet(10 mg) by mouth in the morning. 90 tablet 11/03/2024 06/01/2025 Discontinued (Reorder) Start: 02-61-8358sxwo 1 mg by mouth once dailyAbilify 10 [...] sources)Platelet Aggregation Inhibitor, Nonsteroidal Anti-inflammatory Drug Start: 16-12-0428elay 1 tablet by mouth once dailyAspirin 81 mg tablet,delayed release (DR/EC) Active 81 MG PO Daily November 06, 2023 12:00am Complieswith drug therapyStart: 46-48-8099ucfn 1 mg by mouth once dailyaspirin 81 mg oral tablet mg tab(s), Oral, Daily, Refills(s) 0 Start Date: 02/13/20 Status: Ordered Repeat number: 1Atogepant (Qulipta) 60 MG tablet (1 source)Start: 08-31-2024 End: 23-91-3201msvh 1 tablet by mouth once dailyAtogepant (Qulipta) 60 MG tablet Indications: Migraine without aura and without status migrainosus,not intractable (CMS/HCC) Take 60 mg by mouth Daily 30 tablet 2 08/31/2024 09/30/2024 Activecelecoxib 200 mg oral capsule (20 sources)Nonsteroidal Anti-inflammatory DrugStart: 16-88-6363mqid 1 capsule by mouth once dailyCelecoxib 200 mg capsule Active 200 MG PO Daily 90 90 3 April 19, 2025 7:34am Complies with drug therapyStart: 05-03-2024 End: 05-85-2952hglv 1 capsule by mouth once dailyCelecoxib 200 mg capsule Discontinued 0 .ROUTE .COMPLEX 90 3 May 03, 2024 7:13am April 19, 2025 7:34am TAKE 1 CAPSULE BY MOUTH EVERY DAY FOR 90 DAYSStart: 11-06-2023 End: 83-70-4922fwlg 1 capsule by mouth once dailyCelecoxib 200 mg capsule Discontinued 200 MG PO Daily November 06, 2023 12:00am May 03, 2024 7:13am Start: 97-25-7065cejf 1 mg by mouth twice dailyCeleBREX 200 mg Cap mg cap(s), Oral, BID, Refills(s) 0 Start Date: 02/13/20 Status: Ordered Repeat number: 1 dexamethasone 4 mg oral tablet (1 source)CorticosteroidStart: 43-64-9914rste 1 tablet by mouth once daily dexamethasone 4 mg Tab 4 mg = 1 tab(s), Oral, Daily, # 6 tab(s), Refills(s) 0, Pharmacy: [facility]/pharmacy #[id number], 182, cm, 05/27/23 13:18:00 EDT, Height/Length Dosing, 68.1, kg, 05/27/23 13:18:00 EDT, Weight Dosing Start Date: 05/30/23 Status: OrderedDuoDERM CGF Spots Extra Thin - (15 sources)Start: 49-01-6894KpmHJBT CGF Spots Extra Thin - as directed Externally qd for 30 days Mar, Active1 ml galcanezumab-gnlm 120 mg/ml auto-injector (2 sources)Start: 12-18-2024 End: 09-23-6498hkzyiakewstd (Emgality) 120 MG/ML auto-injector Indications: Migraine without aura and without status migrainosus, not intractable (CMS/HCC) Inject 2 Syringes (240 mg) under the skin 1 (one) time for1 dose 1.12 mL 12/18/2024 12/18/2024 Activelidocaine 0.04 mg/mg medicated patch (1 source)Antiarrhythmic, Amide Local AnestheticStart: 62-60-7157krdun 1 dose topically once daily as needed [...] to damagedor broken skin. Complies with drug cfjkehn15 hr mirabegron 50 mg extended release oral tablet (20 sources)beta3-Adrenergic AgonistStart: 67-85-4999qakh 1 tablet by mouth every twenty-four hoursMirabegron (Myrbetriq) 50 mg tablet extended release 24 hr Active MG PO March 21, 2025 12:00am Complies with drug therapyStart: 03-22-2024 End: 24-76-8734tnby 1 tablet by mouth once dailyMyrbetriq 50 mg oral tablet, extended release 50 mg = 1 tab(s), Oral, Daily, X 30 day(s), # 30 tab(s), Refills(s) 3, Pharmacy: [facility]/pharmacy #[id number], 183, cm, 03/22/24 10:58:00 EDT, Height/Length Dosing, 70.5, kg, 03/22/24 10:58:00 EDT, Weight Dosing Start Date: 03/22/24 Stop Date: 07/20/24 Status: Orderedomeprazole 20 mg delayed release oral capsule (20 sources)Proton Pump InhibitorStart: 90-34-5474sqkn 1 capsule by mouth once dailyOmeprazole 20 mg capsule,delayed release(DR/EC) Active 0 .ROUTE .COMPLEX 90 3 Katrin 5th, 2025 4:44pm TAKE 1 CAPSULE BY MOUTH DAILY Complies with drug therapyStart: 10-18-2023 End: 45-10-6332enbo 1 capsule by mouth once dailyOmeprazole 20 mg capsule,delayed release(DR/EC) Discontinued 20 MG PO Daily 30 30 October 18, 2023 1:35pm August 06, 2024 4:44pmOmeprazole 20 mg capsule,delayed release(DR/EC) (1 source)Start: 02-67-3191dknq 1 capsule by mouth once dailyOmeprazole 20 mg capsule,delayed release(DR/EC) Active 0 .ROUTE .COMPLEX 90 August 06, 2024 3:44pm TAKE 1 CAPSULE BY MOUTH DAILYpolysaccharide iron complex 150 mg oral capsule (4 sources)Start: 03-01-2025 End: 81-16-5856Dvnlunkkcpbyix Iron Complex (Ferrex 150) 150 mg iron capsule Active 150 MG PO Daily 90 March 02, 2025 3:08pm Complies with drug therapypravastatin sodium 80 mg oral tablet (20 sources)HMG-CoA Reductase InhibitorStart: 11-11-2023 End: 57-43-5208gvdb 1 tablet by mouth once daily in the eveningPravastatin 80 mg tablet Active 0 .ROUTE .COMPLEX 90 October 24, 2024 12:01pm TAKE 1 TABLET BY MOUTH EVERY DAY IN THE EVENING Complies with drug therapyStart: 02-13-2020 End: 29-16-4827ofil 1 tablet by mouth once daily in the eveningPravastatin 80 mg tablet Discontinued 80 MG PO Every evening November 06, 2023 12:00am November 11, 2023 8:43pmrOPINIRole 1 mg oral tablet (20 sources)Nonergot Dopamine AgonistStart: 71-19-9230ccct 1 tablet by mouth once dailyRopinirole 1 mg tablet Active 0 .ROUTE .COMPLEX 90 May 04, 2024 9:59pm TAKE 1 TABLET BY MOUTH EVERY DAY Complies with drug therapyStart: 11-06-2023 End: 81-80-2029epuw 1 tablet by mouth once dailyRopinirole 1 mg tablet Discontinued 1 MG PO Daily November 06, 2023 12:00am May 04, 2024 9:59pm Start: 22-34-0468oslj 1 tablet by mouth three times dailyRequip 1 mg Tab mg tab(s), Oral, TID, Refills(s) 0 Start Date: 02/13/20 Status: Ordered Repeat number: 1sildenafil 50 mg oral tablet (3 sources)Phosphodiesterase 5 InhibitorStart: 73-72-9942fgtlfoqyaj 50 mg Tab 50 mg = 1 tab(s), Oral, As Directed, 1 hour before sexual activity. Do not exceed 100 mg (2 tabs) in 24 hours. Cannot take with nitro products., # 30 tab(s), Refills(s) 3, Pharmacy: [facility]/pharmacy #[id number], 183, cm, 12/02/22 8:18:00 EDT, Height/Length Dosi... Start Date: 12/02/22 Status: OrderedtiZANidine 4 mg oral tablet (20 sources)Central alpha-2 Adrenergic AgonistStart: 17-15-9349lfQCBukwon (Zanaflex) 4 MG capsule Indications: Myalgia Up to TID for muscle spasm 90 capsule 3 12/18/2024 ActiveStart: 84-36-4216cgGQMitsmo (Zanaflex) 4 MG capsule Indications: Myalgia Up to TID for muscle spasm 90 capsule 3 12/18/2024 Active Start: 55-84-5778jrMACqyckw (Zanaflex) 4 MG capsule Indications: Myalgia Up to TID for muscle spasm 90 capsule 3 12/18/2024 ActiveStart: 11-06-2023 End: 10-32-6791klgn 1 tablet by mouth in the morning, then take 1 tablet by mouth in the evening, then take 1 tablet by mouth at bedtimetiZANidine (Zanaflex) 4 MG tablet Indications: Myalgia Take 1 tablet (4 mg) by mouth in the morningand 1 tablet (4 mg) in the evening and 1 tablet (4 mg) before bedtime. 90 tablet 2 12/28/2024 ActiveStart: 02-13-2020 End: 54-05-9052vixa 1 capsule by mouth at bedtimetiZANidine (Zanaflex) 4 MG capsule Indications: Myalgia Take 1 capsule (4 mg) by mouth at bedtime 30 capsule 3 08/30/2024 12/18/2024 Discontinued (Reorder)tiZANidine HCl 4 MG 1 and 1/2 tablet as needed Orally Three times a day neurologist ActivetraZODone hydrochloride 100 mg oral tablet (20 sources)Serotonin Reuptake InhibitorStart: 92-79-7885mycCJHiml (Desyrel) 100 MG tablet Indications: Major depression, recurrent, chronic , Insomnia, unsp ecified type 1-2 tabs at hs as needed 180 tablet 06/01/2025 ActiveStart: 68-64-2755cpdGICqts (Desyrel) 100 MG tablet Indications: Major depression, recurrent, chronic , Insomnia, unspecified type 1-2 tabs at hs as needed 180 tablet 06/01/2025 ActiveStart: 01-27-2024 End: 25-35-1259xufTUDovg (Desyrel) 100 MG tablet Indications: Major depression, recurrent, chronic , Insomnia, unspecified type 1-2 tabs at hs as needed 180 tablet 11/03/2024 06/01/2025 Discontinued (Reorder)Start: 17-23-0151hmdf 3 tablets by mouth once daily at bedtimeTrazodone Active 300 MG PO Daily at bedtime November 06, 2023 12:00am FreeTextSig: take 3 tablet Orally at bedtime; Note: Source Status: Taking; Provider: Willy Christianson ( )Start: 15-68-2770gpyj 3 tablets by mouth once daily at bedtimeTrazodone 100 mg tablet Active 300 MG PO Daily at bedtime November 06, 2023 12:00am FreeTextSig: take3 tablet Orally at bedtime; Note: Source Status: Taking; Provider: Willy Christianson ( )Complies with drug therapyStart: 12-00-5715zhnz 1 tablet by mouth once daily at bedtimetraZODONE 100 mg Tab 100 mg = 1 tab(s), Oral, Once a day (at bedtime), Refills(s) 0 Start Date: 05/27/23 Status: Wxscxbp13 hr divalproex sodium 500 mg extended release oral tablet (20 sources)Mood Stabilizer, Anti-epileptic AgentStart: 52-82-9041ervy 1 tablet by mouth every twenty-four hours in the morningdivalproex (Depakote ER) 500 MG 24 hr tablet Indications: Migraine without aura and without status migrainosus, not intractable TAKE 1 TABLET BY MOUTH IN THE MORNING AND 1 TABLET BEFORE BEDTIME. DO NOT CRUSH, CHEW, OR SPLIT 180 tablet 2 10/24/2024 ActiveStart: 73-36-2157yfkw 1 tablet by mouth every twenty-four hours in the morning divalproex (Depakote ER) 500 MG 24 hr tablet Indications: Migraine without aura and without status migrainosus, not intractable (CMS/HCC) Take 1 tablet (500 mg) by mouth in the morning and 1 tablet (500 mg) before bedtime. Do not crush, chew, or split.. 180 tablet 2 02/01/2024 ActiveStart: 80-46-2068Qsiinkgwsu 500 mg tablet extended release 24 hr Active 1000 MG PO Daily November 06, 2023 12:00am Complies with drug therapyStart: 09-76-7059ouml 1000 mg by mouth once daily Divalproex Active 1000 MG PO Daily November 06, 2023 12:00amStart: 11-26-8188wqfh 2 tablets by mouth once dailydivalproex sodium 500 mg ER Tab 1,000 mg = 2 tab(s), Oral, Daily, Refills(s) 0 Start Date: 02/13/20 Status: Ordered Repeat number: 1Start: 56-20-0467nflh 1 mg by mouth once dailydivalproex sodium 500 mg ER Tab mg tab(s), Oral, Daily, Refills(s) 0 Start Date: 02/13/20 Status: Ordered vortioxetine 20 mg oral tablet (20 sources)Start: 02-13-2020 End: 40-68-1339cmyl 1 tablet by mouth once dailyVortioxetine HBr (Trintellix) 20 MG tablet Indications: Major depression, recurrent, chronic Take 20 mg by mouth Daily 90 tablet 06/01/2025 08/30/2025 Active Completed/Discontinued Medications MedicationDrug Class(es)DatesSig (Normalized)Sig (Original)168 hr buprenorphine 0.02 mg/hr transdermal system (20 sources)Partial Opioid AgonistStart: 23-31-3371Iqgqgwv 150 mcg buccal film 150 mcg = 1 EA, Buccal, q12hr, Refills(s) 0 Start Date: 11/12/23 Status:Ordered Repeat number: 1Start: 11-06-2023 End: 23-33-7043Uuzwdabhtbezl Hcl (Belbuca) 150 mcg film Discontinued 150 MCG BUCCAL Every 12 hours November 052:00am November 15, 2023 6:07pmStart: 09-16-2023 End: 08-38-3590lxjrc 20 ug transdermal route every week as needed for pain Buprenorphine 20 mcg/hour patch weekly Discontinued 1 PATCH TRANSDERML Q7D as needed for pain 4 28 0 October 08, 2023 2:35pm November 15, 2023 6:09pm Spondylosis of lumbar spine Spondylosis without myelopathy or radiculopathy, lumbar regionStart: 57-10-5958Iyxhqarxyibnl 20 MCG/HR 1 patch Transdermal every 7 days Aug, ActiveStart: 02-20-7396Iscxgnjdnmgkn 20 MCG/HR 1 patch Transdermal every 7 days for 30 days start 07/09Jul, ActiveStart: 60-09-7327Tsokleibxeesi 20 MCG/HR 1 patch Transdermal every 7 days for 30 days p/u 06/07, start 06/09Jun, ActiveStart: 61-00-6730Bwtleritkpews 20 MCG/HR 1 patch Transdermal every 7 days for 30 days p/u 05/08, start 05/10May, ActiveStart: 39-16-7190Dpgdfhyixkicj 20 MCG/HR 1 patch Transdermal every 7 days for 30 days p/u 04/09, start 04/10Apr, ActiveStart: 50-33-0103Ikejmkponrqbb 20 MCG/HR 1 patch Transdermal every 7 days for 30 days Start 03/11Mar, ActiveStart: 33-96-8716Eqrchfagwnnsc 20 MCG/HR 1 patch Transdermal every 7 days for 30 days Start 02/08Jan, ActiveStart: 98-98-8038Dkqadfwpadnhe 20 MCG/HR 1 patch Transdermal every 7 days for 30 days Start 01/05Dec, ActiveStart: 08-93-8456Ndvdizcdzazfq 20 MCG/HR 1 patch Transdermal every 7 days p/u 12/03, start 12/04November, ActiveStart: 99-85-9557Dxqimncldmtdi 20 MCG/HR 1 patch Transdermal every 7 days for 28 days Rx 11/04/22 Oct, ActiveStart: 21-32-0979Jgmicmopftnbp 20 MCG/HR 1 patch Transdermal every 7 days for 28 days Sep, ActiveBelbuca 150 MCG 1 film to the gum Bucally every 12 hrs Active Belbuca 150 MCG 1 film to the gum Bucally every 12 hrs Active1.5 ml fremanezumab-vfrm 150 mg/ml auto-injector (18 sources)Start: 02-01-2024 End: 90-33-4204tgwlvmltsfzk (Ajovy) 225 MG/1.5ML auto-injector Indications: Migraine without aura and without status migrainosus, not intractable (CMS/HCC) , Tension headache Inject 1 pen (225 mg) under the skin every 30 (thirty) days 1.5 mL 5 08/30/2024 08/31/2024 Discontinued (Cost of medication)methylphenidate hydrochloride 20 mg oral tablet (20 sources)Central Nervous System StimulantStart: 11-06-2023 End: 02-28-6565Hefmbevpwotoaxv Hcl 20 mg tablet Discontinued 30 MG PO Daily 0 November 06, 2023 12:00am February 10, 2024 10:40amStart: 11-06-2023 End: 38-77-0082zjzm 30 mg by mouth once dailyMethylphenidate Hcl Discontinued 30 MG PO Daily November 06, 2023 12:00am February 10, 2024 10:40amStart: 97-96-2775spuv 1.5 tablets by mouth every twenty-four hoursRitalin 20 MG 1.5 tablet Orally daily for [address] Doll Dec, Activepantoprazole 40 mg delayed release oral tablet (20 sources)Proton Pump InhibitorStart: 02-13-2020 End: 13-60-6132nudj 1 tablet by mouth once dailyPantoprazole 40 mg tablet,delayed release (/EC) Discontinued 40 MG PO Daily November 06, 2023 12:00am February 10, 2024 10:40ampregabalin 150 mg oral capsule (20 sources)Start: 10-30-2022 End: 62-70-6921yarc 1 capsule by mouth three times dailyPregabalin 150 mg capsule Discontinued 150 MG PO Three times daily November 06, 2023 12:00am May 02, 2024 8:49pmStart: 12-88-5866mics 1 capsule by mouth three times dailyLyrica 100 mg Cap 100 mg = 1 cap(s), Oral, TID, Refills(s) 0 Start Date: 02/13/20 Status: Ordered Problems Active Problems Problem ClassificationProblemDateDocumented DateEpisodic/ChronicBacterial infection; unspecified site (1 source)Bacteremia; Translations: [Bacteremia]Onset: 54-20-6539HbkjpghlCmcgtg of head and neck (14 sources)Malignant tumor of tonsillar pillar; 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)]Onset: ChronicCancer of head and neck (9 sources)History of malignant neoplasm of tonsil; Translations: [Personal history of malignant neoplasm of other sites of lip, oral cavity, and pharynx] EpisodicCancer of prostate (20 sources)Malignant tumor of prostate; Translations: [Malignant neoplasm of prostate]Onset: 72-95-8709QnjidikJnxidf of prostate (11 sources)Personal history of malignant neoplasm of prostate; Translations: [History of malignant neoplasm ofprostate]Onset: 98-60-1044QannznthNmutuc; other and unspecified primary (20 sources)History of squamous cell carcinoma; Translations: [Personal history of malignant neoplasm of other organs and systems]EpisodicCancer; other and unspecified primary (3 sources)Personal history of malignant neoplasm of other organs and systems EpisodicCancer; other and unspecified primary (1 source)H/O: malignant neoplasm; Translations: [Personal history of malignant neoplasm of other organs and systems]EpisodicCardiac dysrhythmias (1 source)Sinus bradycardia; Translations: [Bradycardia, unspecified]Onset: 62-11-7261VuyfhbcrEjiazeecubh and hemorrhagic disorders (20 sources)Thrombocytopenic disorder; Translations: [Thrombocytopenia, unspecified]ChronicDeficiency and other anemia (5 sources)Pancytopenia; Translations: [Other pancytopenia]97-62-8010Ajvwzwj Deficiency and other anemia (7 sources)Anemia; Translations: [Anemia, unspecified]32-33-8889Nuodnzoi Deficiency and other anemia (1 source)Anemia, unspecifiedEpisodicDiseases of white blood cells (1 source)Leukopenia; Translations: [Decreased white blood cell count, unspecified]ChronicDisorders of lipid metabolism (20 sources)Hypercholesterolemia; Translations: [Pure hypercholesterolemia, unspecified]Onset: 52-95-4044FmthanjUnzjxhwdlcyltj and diverticulitis (3 sources)Diverticular ptzhteq60-52-4195ZlycbxjWluwqcpgfm disorders (20 sources)Gastro-esophageal reflux disease with esophagitis; Translations: [Gastroesophageal reflux disease with esophagitis without hemorrhage]Onset: 53-16-7627KxwrmuxAxmvvmtii hypertension (20 sources)Essential hypertension; Translations: [Essential (primary) hypertension]Onset: 33-90-6093DmgysdrXmiupebmwkksb symptoms and ill-defined conditions (20 sources)Mixed incontinence; Translations: [Incontinence]Onset: 12-02-2022 ChronicGenitourinary symptoms and ill-defined conditions (20 sources)Increased frequency of urination; Translations: [Isolated proteinuria]Onset: 640255-34-1482GyzgupncWewtlnsi; including migraine (20 sources)Chronic tension-type headache; Translations: [Chronic tension-type headache, intractable]Onset: 610538-76-9046GphnjyyPjnmpsxn; including migraine (12 sources)Headache; Translations: [Headache, unspecified]Onset: 08-04-2018 96-55-2216XgavuvkgAqonafykyrrok and screening for infectious disease (1 source)Vaccination given; Translations: [Encounter for immunization]Episodic Malaise and fatigue (2 sources)Malaise and fatigue; Translations: [Other malaise and fatigue]Onset: 55-39-4752SsirmheiClnfvvtaxuake mental health disorders (20 sources)Primary insomnia; Translations: [Primary insomnia]ChronicMood disorders (20 sources)Recurrent major depression in remission; Translations: [Major depressive disorder, recurrent, in partial remission]Onset: 17-11-8136Tvwzmhy Neoplasms of unspecified nature or uncertain behavior (9 sources)Neoplasm of uncertain behavior of soft tissues; Translations: [Neoplasms of unspecified nature of bone, soft tissue, and skin]Episodic Osteoarthritis (12 sources)Osteoarthritis of knee; Translations: [Degenerative joint disease of knee]Onset: 22-62-3730UqbgkzqXbran aftercare (9 sources)H/O: high risk medication; Translations: [Other detention (current) drug therapy]EpisodicOther aftercare (6 sources)Drug therapy finding; Translations: [MCFP (current) use of opiate analgesic]59-65-7735CzpzvmrkEpzbg circulatory disease (1 source)Cardiovascular symptoms; Translations: [Other specified symptoms and signs involving the circulatory and respiratory systems]EpisodicOther connective tissue disease (9 sources)Impingement syndrome of shoulder region; Translations: [Shoulder impingement syndrome]EpisodicOther connective tissue disease (1 source)Fibromyalgia; Translations: [Fibromyalgia]EpisodicOther diseases of bladder and urethra (3 sources)Detrusor overactivity; Translations: [Overactive bladder]Onset: 29-27-1178DgwhtxzEvuyr diseases of bladder and urethra (3 sources)Overactive -97-3256PcvghmpNhukq gastrointestinal disorders (6 sources)Constipation; Translations: [Constipation, unspecified]11-16-2024 EpisodicOther hematologic conditions (4 sources)Splenic cqfg05-32-5820VewfdfvuAhpcx hereditary and degenerative nervous system conditions (7 sources)Restless legs; Translations: [Restless legs syndrome]Onset: 91-17-2363QsphycmBszhh liver diseases (7 sources)Fatty (change of) liver, not elsewhere classified; Translations: [Nonalcoholic fatty liver disease]32-70-3350SsdtbmyQktep liver diseases (4 sources)Steatosis of -48-0384DgatfuhSvojl lower respiratory disease (1 source)Dyspnea; Translations: [Other forms of dyspnea]EpisodicOther male genital disorders (9 sources)Induratio penis plastica; 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]Onset: 14-41-7410WvucinzRlzda male genital disorders (4 sources)Secondary erectile dysfunction; 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]Onset: 95-63-0669OfutftmFptji male genital disorders (8 sources)Erectile dysfunction following radical plvnmmixnjcyi09-86-1963Voaurml Other nervous system disorders (1 source)Chronic pain syndrome; Translations: [Chronic pain syndrome]Chronic Other nervous system disorders (20 sources)Organic sleep-wake cycle disorder; Translations: [Circadian rhythm sleep disorder, unspecified type]Onset: 649030-15-8726RxgzztjQlsfm nervous system disorders (8 sources)Tremor; Translations: [Tremor, unspecified]44-87-4906YoqqhozuHqgek non-traumatic joint disorders (1 source)Monoarthritis of ankle and/or foot; Translations: [Monoarthritis, not elsewhere classified, left ankle and foot]ChronicOther non-traumatic joint disorders (2 sources)Shoulder joint pain; Translations: [Pain in joint, shoulder region] Onset: 57-59-8796OmplzldtBgbuj nutritional; endocrine; and metabolic disorders (1 source)Simple obesity ; Translations: [Other obesity due to excess calories] Onset: 85-07-2881QmaymgkGoexh nutritional; endocrine; and metabolic disorders (1 source)Body mass index 30+ - obesity; Translations: [Body mass index 30.0- 30.9, adult]Onset: 75-14-1001TacithiQlktc nutritional; endocrine; and metabolic disorders (6 sources)Abnormal weight loss; Translations: [Abnormal weight loss]Onset: 43-52-5913QpeaxvrgUkaoj nutritional; endocrine; and metabolic disorders (6 sources)Abnormal weight loss; Translations: [Loss of weight]EpisodicOther nutritional; endocrine; and metabolic disorders (7 sources)Unexplained weight loss ; Translations: [Abnormal weight loss] 04-02-2076PbnjkmurExzkh screening for suspected conditions (not mental disorders or infectious disease) (9 sources)Raised prostate specific antigen; Translations: [Elevated prostate specific antigen [PSA]] Resolved: 496227-29-2412VvqoijopTlevo skin disorders (1 source)Ingrowing nail; Translations: [Ingrowing nail]EpisodicResidual codes; unclassified (20 sources)Obstructive sleep apnea syndrome; Translations: [Obstructive sleep apnea (adult) (pediatric)]Onset: 386387-59-6057FlpmkzuQoaiwwml codes; unclassified (9 sources)Obstructive sleep apnea (adult) (pediatric); Translations: [Obstructive sleep apnea (adult)(pediatric)]ChronicResidual codes; unclassified (1 source)Sleep apnea; Translations: [Sleep apnea, unspecified]Onset: 08-04-2018 ChronicResidual codes; unclassified (20 sources)Hypersomnia; Translations: [Hypersomnia, unspecified]Onset: 956883-50-5139OheqfutCkuyqgdn codes; unclassified (20 sources)Insomnia; Translations: [Insomnia, unspecified]Onset: 12-12-2022 95-35-5489RsuuwqdoSedpinoa codes; unclassified (4 sources)Sleep garonfdl28-99-9631MqmgvpctQgwrchmantw failure; insufficiency; arrest (adult) (1 source)Acute respiratory failure; Translations: [Acute respiratory failure with hypoxia]Onset: 66-34-0833HjqkxhtaZtbtqyasmmg; intervertebral disc disorders; other back problems (20 sources)Lumbar spondylosis; Translations: [Spondylosis without myelopathy or radiculopathy, lumbar region]Onset: 02-30-8416OovyclpIfonech and strains (1 source)Strain of muscle and tendon of back wall of thorax, initial encounter; Translations: [Strain of muscle and tendon of back wall of thorax, initial encounter]Episodic Past or Other Problems Problem ClassificationProblemDateDocumented DateEpisodic/ChronicEsophageal disorders (6 sources)Esophageal disorders; Translations: [Gastro-esophageal reflux disease with esophagitis, without bleeding]Inflammatory conditions of male genital organs (1 source)Chronic prostatitis; Translations: [Chronic prostatitis] Resolved: 37-85-2256MxikaxrMlsa disorders (2 sources)Mood disordersOnset: Other aftercare (1 source)High risk drug monitoring status; Translations: [MCFP (current) use of opiate analgesic]Onset: 29-19-3464JnjmmvbaLenri connective tissue disease (9 sources)Myalgia/myositis - multiple; Translations: [Unspecified myalgia and myositis]Onset: 19-15-8542HhiylhxfRfrfg connective tissue disease (1 source)Pain in limb; Translations: [Pain in soft tissues of limb]Onset: 39-59-8252SuxqaodnIcdcn connective tissue disease (20 sources)Muscle pain; Translations: [Myalgia, unspecified site]Onset: 474872-92-8957JomcwvraHezpq connective tissue disease (20 sources)Spasm; Translations: [Other muscle spasm]Onset: EpisodicOther gastrointestinal disorders (1 source)Dysphagia; Translations: [Dysphagia, unspecified]Onset: 08-04-2018 EpisodicOther nervous system disorders (20 sources)Paresthesia; Translations: [Paresthesia of skin]Onset: 11-02-2019 47-53-0624IfhhhsxbIvphompps and history of mental health and substance abuse codes (1 source)History of tobacco use; Translations: [Personal history of tobacco use, presenting hazards to health]Onset: 12-56-8517NtofygxfCsik and subcutaneous tissue infections (1 source)Cellulitis of finger; Translations: [Cellulitis of unspecified finger] Resolved: 34-61-7681XajbuvxlKnerfvmaufe; intervertebral disc disorders; other back problems (20 sources)Low back pain; Translations: [Low back pain, unspecified]Onset: 751412-82-3727KezfbpacBepybmaxvwuh (9 sources)Personal history of malignant neoplasm of other and unspecified parts of oral cavity and pharynx; Translations: [Personal history of malignant neoplasm of other and unspecified parts of oral cavity and pharynx]Onset: 29-64-9844Xtnpl infection (1 source)Postherpetic neuralgia; Translations: [Other postherpetic nervous system involvement]Onset: 11-71-4014KlkqwggcUcpdt infection (2 sources)Disease caused by 2019-nCoV; Translations: [COVID-19]Onset: 05-27-2023 Results Test NameValueInterpretationReference RangeFacilityBasophils Auto (Bld) [#/Vol] Ordered By: Sammy Doll on 53-78-4481Eojcclqsg (Bld) [#/Vol]0.0 10 3/uL0.0-0.1 [facility] CenterBasophils/100 WBC Auto (Bld)Ordered By: Sammy Doll on 33-45-7010Imnxmmwsc/100 WBC (Bld)0.8 %0.2-2.0[facility] CenterCholesterol in LDL Calc [Mass/Vol]Ordered By: Sammy Doll on 31-30-6789Bjvwygiodlp in LDL [Mass/Vol]69.0 mg/dLKettering Health Behavioral Medical CenterComment on above:<100 mg/dl AYZYMRT134-661 mg/dl NEAR OR ABOVE LFWROUZ129- 159 mg/dl BORDERLINE JEPW883-053 mg/dl HIGH>190 mg/dl VERY HIGHCholesterol in VLDL Calc [Mass/Vol]Ordered By: Sammy Doll on 70-85-4478Votrxdrzfdt in VLDL [Mass/Vol]9.0 mg/dLKettering Health Behavioral Medical CenterEosinophils/100 WBC Auto (Bld)Ordered By: Sammy Doll on 79-30-1366Skfzijljibm/100 WBC (Bld)4.1 % 0.9-7.0[facility] CenterErythrocyte distribution width Auto (RBC) [Ratio]Ordered By: Sammy Doll on 63-23-6504Vjnmhynmrcm distribution width (RBC) [Ratio]12.8 %11.0-15.0[facility] CenterGlobulin Calc (S) [Mass/Vol]Ordered By: Sammy Doll on 64-22-1798Kphszjah (S) [Mass/Vol]3.2 g/dLKettering Health Behavioral Medical CenterGlomerular filtration rate (GFR) estimation in non- AmericanOrdered By: Sammy Doll on 02-28-2025 GFR/1.73 sq M.predicted among non-blacks MDRD (S/P/Bld) [Vol rate/Area] mL/min/{1.73_m2}>=60 mL/min/1.73m 2FOhioHealth Grady Memorial HospitalHematocrit Auto (Bld) [Volume fraction]Ordered By: Sammy Doll on 85-66-5974Nsbapfptmy (Bld) [Volume fraction]42.8 %42.0-54.0[facility] Hemoglobin [Mass/volume] in BloodOrdered By: Sammy Doll on 02-28-2025 Hemoglobin (Bld) [Mass/Vol]14.2 g/dL14.0-18.0[facility] Laboratory - Chemistry and Chemistry - challengeOrdered By: Sammy Doll on 75-80-9198Gfqkbjm [Mass/Vol]3.9 g/dL3.4-5.0[facility] CenterALP [Catalytic activity/Vol]90 U/G19-017HapxnjupnKettering Health Behavioral Medical CenterALT [Catalytic activity/Vol]27 U/L74-27EgdjbotxsKettering Health Behavioral Medical CenterAST [Catalytic activity/Vol]14 U/ERsl43-82WgqbwcfegKettering Health Behavioral Medical CenterBilirubin [Mass/Vol]0.7 mg/dL0.2-1.0[facility] CenterCalcium [Mass/Vol]9.2 mg/dL8.5-10.1FOhioHealth Grady Memorial HospitalChloride [Moles/Vol]107 mmol/L 98-107[facility] CenterCholesterol [Mass/Vol]149 mg/dL<=200 [facility] CenterCholesterol in HDL [Mass/Vol]71 mg/uNYunq07-38 [facility] CenterComment on above:> or =60 mg/dl - LOW CARDIOVASCULAR RISK<40 mg/dl - HIGH CARDIOVASCULAR RISKCO2 [Moles/Vol]31.2 mmol/L21.0-32.0[facility] CenterCobalamin (Vitamin B12) [Mass/Vol]651 pg/rS005-4724IieddnhcrKettering Health Behavioral Medical CenterComment on above: Performed at: [employer] [facility] [address] [id number] Director: Dontae Sanchez PhD, Phone: [phone] [Mass/Vol]1.11 mg/dL0.70-1.30[facility] CenterFerritin [Mass/Vol]26.0 ng/mL 26.0-388.0[facility] CenterGFR/1.73 sq M.predicted MDRD (S/P/Bld) [Vol rate/Area]mL/min/{1.73_m2}>=60 mL/min/1.73m 2FOhioHealth Grady Memorial HospitalGlucose [Mass/Vol]89 mg/hD89-309IdudtqokiK[facility] Health [facility] Center Potassium [Moles/Vol]4.1 mmol/L3.5-5.1FOhioHealth Grady Memorial HospitalProtein [Mass/Vol]7.1 g/dL6.4-8.2FGerman Hospitalodium [Moles/Vol]147 mmol/RNlya748-145ZfcdrgmvgKettering Health Behavioral Medical CenterTriglyceride [Mass/Vol]45 mg/dL<=150[facility] CenterUrea nitrogen [Mass/Vol]35.0 mg/dL High7.0-18.0[facility] CenterUrea nitrogen/Creatinine [Mass ratio]31.5 mg/mgKettering Health Behavioral Medical CenterLaboratory - Hematology and Cell countsOrdered By: Sammy Doll on 74-73-8270Gbukuenx granulocytes/100 WBC (Bld)0.3 %0.0-0.5FOhioHealth Grady Memorial HospitalLeukocytes [#/volume] corrected for nucleated erythrocytes in Blood by Automated counOrdered By: Sammy Doll on 61-72-9751KVD corrected for nucl RBC Auto (Bld) [#/Vol]3.6 10 3/uLLow4.0-11.0[facility] CenterLymphocytes Auto (Bld) [#/Vol] Ordered By: Sammy Doll on 65-18-6944Wicrkcertan (Bld) [#/Vol]0.9 10 3/uLLow 1.2-3.8[facility] CenterLymphocytes/100 WBC Auto (Bld)Ordered By: Sammy Doll on 78-23-2805Rjzppxtadsm/100 WBC (Bld)24.3 %20.5-60.0[facility] Auto (RBC) [Entitic mass]Ordered By: Sammy Doll on 76-56-4498BLO (RBC) [Entitic mass]30.0 pg25.9-34.0[facility] HospitalHC Auto (RBC) [Mass/Vol]Ordered By: Sammy Doll on 78-91-5481VFOE (RBC) [Mass/Vol]33.2 g/dL29.9-35.2FOhioHealth Grady Memorial HospitalMCV Auto (RBC) [Entitic vol]Ordered By: Sammy Doll on 19-66-1567WDC (RBC) [Entitic vol]90.5 fL80.0-94.0[facility] CenterMonocytes Auto (Bld) [#/Vol]Ordered By: Sammy Doll on 73-55-8393Fsyfmmoem (Bld) [#/Vol]0.4 10 3/uL 0.3-0.8[facility] CenterMonocytes/100 WBC Auto (Bld)Ordered By: Sammy Doll on 44-63-8123Pgtjfvgnc/100 WBC (Bld)10.5 %1.7-12.0[facility] CenterNeutrophils Auto (Bld) [#/Vol]Ordered By: Sammy Doll on 73-80-2157Lwbmjdffycv (Bld) [#/Vol]2.2 10 3/uL1.4-6.5FOhioHealth Grady Memorial HospitalNeutrophils/100 WBC Auto (Bld)Ordered By: Sammy Doll on 55-85-3566Flclhfoktsq/100 WBC (Bld)60.0 %43.0-75.0[facility] CenterNo Panel InformationOrdered By: Sammy Doll on 75-21-8472Vtgflqkzzwx # (Auto)0.2 10 3/uL0.0-0.7FOhioHealth Grady Memorial HospitalFolate33.20 ng/mL 8.60-58.90[facility] CenterImmature Granulocyte # (Auto)0.01 10 3/uL0.00-0.03[facility] CenterPlatelet mean volume Auto (Bld) [Entitic vol]Ordered By: Sammy Doll on 27-84-8293Zubwivrb mean volume (Bld) [Entitic vol]11.1 fL9.5-13.5FOhioHealth Grady Memorial HospitalPlatelets Auto (Bld) [#/Vol]Ordered By: Sammy Doll on 49-72-8114Prrwxqmty (Bld) [#/Vol]123 10 3/nTWru333-487DbjsqqgayKettering Health Behavioral Medical CenterRBC Auto (Bld) [#/Vol]Ordered By: Sammy Doll on 32-42-1996DTE (Bld) [#/Vol]4.73 10 6/uL4.70-6.10[facility]aritan Hospitalerum or plasma albumin/globulin mass ratioOrdered By: Sammy Doll on 81-92-9881Tmpnuon/Globulin [Mass ratio]1.2 {ratio}[facility] Hospitalerum or plasma anion gap determinationOrdered By: Sammy Doll on 36-20-9384Lelia gap [Moles/Vol]12.9 mmol/LFGerman Hospitalerum or plasma total cholesterol/high density lipoprotein (HDL) cholesterol mass ratOrdered By: Sammy Doll on 02-28-2025 Cholesterol.total/Cholesterol in HDL [Mass ratio]2.1 {ratio}[facility] CenterComment on above:3.3 - 4.4 LOW RISK4.4 - 7.1 AVERAGE RISK7.1 - 11.0 MODERATE RISK>11.0 HIGH RISKAmbulatory Visit Summaryon 93-36-6966Mmjkvgygsy Visit SummaryAmbulatory Visit Summary YENI HOLMAN :1960 [...] BRCA1 and BRCA2. ??? (more content not included)...[facility] HospitalUrology Office/Clinic Noteon 76-58-9461Tvidswf Office/Clinic NoteUrology Office/Clinic Note Chief Complaint 7 [...] <0.13 03/12/23 - <0.13 03/17/23 - [place]0.1 [place] [place] 01[place]17[place] - <0.13 12/29/24 - <0.13 TRUS/bx [...] product 7-8 yrs ago. No hx of UT [2. IAN 1. Not interested in tx, [...] Allergies No Known Kirk (more content not included)...[facility] Comment on above:Result Comment: Electronically Signed By: Kayla Torres MD\.br\Date and Time Signed: 01/17/25 10:08EDT\.br\Electronically Co-Signed By: Jazmine Bear\.br\Date and Time Co-Signed: 01/17/25 10:03 EDTNo Panel Informationon 50-39-2866Lypscxdo Specific Antigen Total<0.13 ng/mL<=4.00 [facility] 48-50-1884QdyndaasuSigplanxx From: Fatmata Evans To: EU - Administrative; Sent: 06/08/2024 12:37:29 EST Show up: 07/11/2024 12:37:00 EST Subject: Ambulatory Reminder Due Date/Time: 08/21/2024 12:37:00 EST Reminder/Recall Patient needs scheduled with SARAH for a 2-3 month F/U with PVR, due back in August or September [facility] to call and scheduleNorwalk Memorial HospitalUrology Office/Clinic Noteon 60-02-9563Ckhxywn Office/Clinic NoteUrology Office/Clinic Note Chief Complaint OAB [...] <0.13 03/12/23 - <0.13 03/17/23 - [place]0.1 [place] [place] 01/17/24 - <0.13 TRUS/bx 02/29/20 - Kael [...] product 7-8 yrs ago. No hx of UT [2] Pt has not yet tried Sildenafil. [...] 06/08/2024 Substance Abuse - (more content not included)...[facility] HospitalComment on above:Result Comment: Electronically Signed By: SUSAN BRIDGES PA-C\.br\Date and Time Signed: 06/11/2423:00 ESTAmbulatory Visit Summaryon 46-82-6070Otvmwqstpf Visit SummaryAmbulatory Visit Summary EVELYNE HOLMANOTHY Swapnil [...] LUGO, Kayla Dubose Where: [facility] [address] [address]- Medications What How Much When Instructions Unchanged [...] you for choosing us for your care. [facility] HospitalUrology Office/Clinic Noteon 80-95-9512Yzsqnzf Office/Clinic NoteUrology Office/Clinic Note Chief Complaint 1 [...] <0.13 03/12/23 - <0.13 03/17/23 - [place]0.1 [place] 01/17/24 - <0.13 TRUS/bx 02/29/20 - Kael 7 (3+4) x 3 cores and [place] 6 (3+3) x 5 cores. S/p open [...] mg qd. SEs discussed. Rx sent to [facility]. Pt to call if cost prohibitive, would prescribe anticholinergic. SEs of anticholinergics discussed. 3. Erectile dysfunction after radical prostatectomy (N52.31: Erectile dysfunction following radicalprostatectomy) Has not been able to achieve erection after surgery. [1] Last took nitro product 7-8 yrs ago. No hx of UT [2] IAN 1 (0). Pt was to [...] Transrectal biopsy of prostate (more content not included)...[facility] HospitalComment on above:Result Comment: Electronically Signed By: Kayla Torres MD\.br\Date and Time Signed: 03/22/24 12:12EDT\.br\Electronically Co-Signed By: Jazmine Bear.violeta\Date and Time Co-Signed: 03/22/24 11:19 EDTBasophils/100 WBC Manual cnt (Bld)on 90-65-4996Izwutybgu/100 WBC (Bld)0.0 %Low0.2-2.0[facility] CenterCholesterol in LDL Calc [Mass/Vol]on 33-36-9041Alsgcgqmrpf in LDL [Mass/Vol]90.0 mg/dLKettering Health Behavioral Medical CenterComment on above:<100 mg/dl ESDHRRF814-561 mg/dl NEAR OR ABOVE YMRGIKK114-291 mg/dl BORDERLINE KXHQ313-091 mg/dl HIGH>190 mg/dl VERY HIGHCholesterol in VLDL Calc [Mass/Vol]on 01-17-2024 Cholesterol in VLDL [Mass/Vol]8.8 mg/dLKettering Health Behavioral Medical Center Eosinophils/100 WBC Manual cnt (Bld)on 02-77-0478Vbnsxxttvng/100 WBC (Bld)0.0 % Low0.9-7.0[facility] CenterErythrocyte distribution width Auto (RBC) [Ratio]on 39-93-9002Ldnxyxjrznk distribution width (RBC) [Ratio]12.9 % 11.0-15.0[facility] CenterEstimated glomerular filtration rate (GFR) non- Americanon 54-55-6111BAW/1.73 sq M.predicted among non-blacks MDRD (S/P/Bld) [Vol rate/Area]mL/min/{1.73_m2}>=60[facility] CenterGlobulin Calc (S) [Mass/Vol]on 72-32-4089Pvgxdsoz (S) [Mass/Vol]3.3 g/dL [facility] CenterGlucose mean value [Mass/volume] in Blood Estimated from glycated hemoglobinon 96-95-9386Rgmxxjd glucose Estimated from glycated hemoglobin (Bld) [Mass/Vol]103 mg/dLKettering Health Behavioral Medical Center Hematocrit Auto (Bld) [Volume fraction]on 23-46-3340Wzhoktdsji (Bld) [Volume fraction]38.8 %Low42.0-54.0[facility] CenterHemoglobin [Mass/volume] in Bloodon 02-14-9499Ravavahwpc (Bld) [Mass/Vol]12.6 g/dLLow 14.0-18.0[facility] CenterLaboratory - Chemistry and Chemistry - challengeon 03-45-2190Mzgjmtk [Mass/Vol]3.4 g/dL3.4-5.0[facility] CenterALP [Catalytic activity/Vol]86 U/I26-122BmfuygvhpKettering Health Behavioral Medical CenterALT [Catalytic activity/Vol]17 U/S97-52BduecibcrK[facility] Center AST [Catalytic activity/Vol]9 U/DZri36-11EatbbvvxqK[facility]al [facility] Center Bilirubin [Mass/Vol]0.7 mg/dL0.2-1.0[facility] CenterCalcium [Mass/Vol]9.5 mg/dL8.5-10.1FOhioHealth Grady Memorial HospitalChloride [Moles/Vol] 103 mmol/C94-043WjeeqarsmKettering Health Behavioral Medical CenterCholesterol [Mass/Vol]175 mg/dL <=200[facility] CenterCholesterol in HDL [Mass/Vol]77 mg/dLHigh 40-60[facility] CenterComment on above:> or =60 mg/dl - LOW CARDIOVASCULAR RISK<40 mg/dl - HIGH CARDIOVASCULAR RISKCO2 [Moles/Vol]34.2 mmol/LHigh21.0-32.0[facility] CenterCreatinine [Mass/Vol]1.04 mg/dL0.70-1.30[facility] CenterGFR/1.73 sq M.predicted MDRD (S/P/Bld) [Vol rate/Area]mL/min/{1.73_m2}>=60[facility] Glucose [Mass/Vol]80 mg/pK34-115UwfibhcotKettering Health Behavioral Medical CenterPotassium [Moles/Vol]4.5 mmol/L3.5-5.1FOhioHealth Grady Memorial HospitalProtein [Mass/Vol] 6.7 g/dL6.4-8.2FGerman Hospitalodium [Moles/Vol]141 mmol/L 136-145[facility] CenterTriglyceride [Mass/Vol]44 mg/dL<=150 [facility] CenterTSH Qn2.798 m[IU]/L0.358-3.740[facility] CenterUrea nitrogen [Mass/Vol]23.0 mg/dLHigh7.0-18.0[facility] CenterUrea nitrogen/Creatinine [Mass ratio]22.1 mg/mgKettering Health Behavioral Medical CenterLaboratory - Hematology and Cell countson 21-99-7144LzT5t (Bld) [Mass fraction]5.2 %4.5-6.2FOhioHealth Grady Memorial HospitalComment on above:ADA RECOMMENDED LIMIT 4.0 - 6.0ADA THERAPEUTIC TARGET < 7.0ACTION SUGGESTED> 7.0Lymphocytes/100 WBC (Bld)5.0 %Low20.5-60.0[facility] CenterMonocytes/100 WBC (Bld)6.0 %1.7-12.0[facility] CenterLeukocytes [#/volume] corrected for nucleated erythrocytes in Blood by Automated counon 22-20-2166EXZ corrected for nucl RBC Auto (Bld) [#/Vol]8.6 10 3/uL4.0-11.0[facility] HospitalH Auto (RBC) [Entitic mass]on 84-52-5423GLE (RBC) [Entitic mass]28.8 pg25.9-34.0[facility] CenterMCHC Auto (RBC) [Mass/Vol]on 99-38-8562SCRG (RBC) [Mass/Vol]32.5 g/dL 29.9-35.2FOhioHealth Grady Memorial HospitalMCV Auto (RBC) [Entitic vol]on 75-35-7200VXO (RBC) [Entitic vol]88.8 fL80.0-94.0[facility] CenterMicroalbumin [Mass/volume] in Urineon 26-80-8070Dydqwxn DL <= 20 mg/L (U) [Mass/Vol]1.5 mg/dL<=30.0[facility] CenterNo Panel Informationon 90-70-2924Olryqnfb Basophils (Manual)0.00 10 3/uL0.00-0.10[facility] CenterEosinophils # (Manual)0.00 10 3/uL0.00-0.70[facility] CenterLymphocytes # (Manual)0.43 10 3/uLLow1.20-3.80[facility] CenterMonocytes # (Manual)0.51 10 3/uL0.30-0.80[facility] CenterProstate Specific Antigen Screen<0.13 ng/mL<=4.00[facility]itan Hospitalegmented Neutrophils # (Manual)7.65 10 3/uLHigh1.4-6.5 [facility] CenterPlatelet mean volume Auto (Bld) [Entitic vol]on 17-83-7254Ontasqvi mean volume (Bld) [Entitic vol]11.0 fL9.5-13.5FOhioHealth Grady Memorial HospitalPlatelets Auto (Bld) [#/Vol]on 87-76-2016Ymgicboys (Bld) [#/Vol]135 10 3/nZYlf650-448ZtjwkbjovKettering Health Behavioral Medical CenterRBC Auto (Bld) [#/Vol]on 37-28-2717RLF (Bld) [#/Vol]4.37 10 6/uLLow4.70-6.10[facility] Hospitalegmented neutrophils/100 WBC Manual cnt (Bld)on 01-17-2024 Segmented neutrophils/100 WBC (Bld)89.0 %[facility] Hospitalerum or plasma albumin/globulin mass ratioon 94-93-2508Ddvruim/Globulin [Mass ratio] 1.0 {ratio}[facility] Hospitalerum or plasma anion gap determinationon 02-73-9251Boekw gap [Moles/Vol]8.3 mmol/LFGerman Hospitalerum or plasma total cholesterol/high density lipoprotein (HDL) cholesterol mass chacorta 24-48-7103Ddfhxdsotvf.total/Cholesterol in HDL [Mass ratio]2.3 {ratio}[facility] CenterComment on above:3.3 - 4.4 LOW RISK4.4 - 7.1 AVERAGE RISK7.1 - 11.0 MODERATE RISK>11.0 HIGH RISKCHEMISTRY Ordered By: SYSTEM SYSTEM on 63-97-7116Lrxklbaoyu trough [Moles/Vol]13 microgram/eYHkcwfx85 - 20 mcg/mLFTMC RemisolAnion gap [Moles/Vol]9 mmol/LNormal6 - 16 mEq/LFTMC RemisolCalcium [Mass/Vol]8.6 mg/dLLow8.9 - 11.1 mg/dLFTMC RemisolChloride [Moles/Vol]94 mmol/KTas685 - 111 mmol/LFTMC RemisolCO2 [Moles/Vol]35 mmol/LHigh21 - 31 mmol/LFTMC RemisolCreatinine [Mass/Vol]0.7 mg/dL Normal0.5 - 1.3 mg/dLFTMC RemisolGFR/1.73 sq M.predicted among non-blacks MDRD (S/P/Bld) [Vol rate/Area]102 mL/min/1.73 n0Gbiltf>=59mL/min/1.73 m2FT Chem S Comment on above:Interpretive Data: Chronic kidney disease could be indicated at eGFR's of less than 60 mL/min/1.73m2. Kidney failure is indicated at less than 15 mL/min/1.73m2.Glucose [Mass/Vol]88 mg/mLQuunni07 - 199 mg/dLFTMC Remisol Comment on above:Interpretive Data: If this glucose result represents a fasting glucose, interpretation should referto the following reference range: 55-99 mg/dLPotassium [Moles/Vol]3.3 mmol/LLow3.5 - 5.3 mmol/LFTMC RemisolSodium [Moles/Vol]135 mmol/NNnffuj331 - 145 mmol/LFTMC RemisolUrea nitrogen [Mass/Vol] 25 mg/dLHigh5 - 21 mg/dLFTMC RemisolUrea nitrogen/Creatinine [Mass ratio]36 mg/loUoyl82 - 20[facility] RemisolVancomycin peak [Moles/Vol]25 microgram/gEFxbgfo45 - 40 mcg/mLFTMC RemisolHEMATOLOGYOrdered By: SYSTEM SYSTEM on 05-30-2023 Basophils/100 WBC (Bld)0.3 %Normal0.0 - 2.0 %[facility] HemeAutoSSBasophils/Leukocytes Auto (Bld) [Pure # fraction]0.0 E9/LNormal0.0 - 0.2 E9/LFTMC HemeAutoSS Eosinophils/100 WBC (Bld)0.0 %Normal0.0 - 8.0 %[facility] HemeAutoSS Eosinophils/Leukocytes Auto (Bld) [Pure # fraction]0.0 E9/LNormal0.0 - 0.5 E9/L [facility] HemeAutoSSLymphocytes/100 WBC (Bld)17.8 %Hxcxsy72.0 - 50.0 %[facility] HemeAutoSS Lymphocytes/Leukocytes Auto (Bld) [Pure # fraction]0.8 E9/LLow1.0 - 4.0 E9/LFTMC HemeAutoSSMonocytes/100 WBC (Bld)6.9 %Normal4.0 - 14.0 %[facility] HemeAutoSS Monocytes/Leukocytes Auto (Bld) [Pure # fraction]0.3 E9/LNormal0.2 - 1.0 E9/L [facility] HemeAutoSSNeutrophils/100 WBC (Bld)75.0 %Yrhfaj19.0 - 75.0 %[facility] HemeAutoSS Neutrophils/Leukocytes Auto (Bld) [Pure # fraction]3.6 E9/LNormal2.0 - 7.5 E9/L [facility] HemeAutoSSHEMATOLOGYOrdered By: Michelle Manuel on 40-14-9098Zuwjzendchy distribution width (RBC) [Ratio]13.1 %Rnlucm11.9 - 14.2 %[facility] HemeAutoSS Hematocrit (Bld) [Volume fraction]39.3 %Ewrgwj41.7 - 49.0 %[facility] HemeAutoSS Hemoglobin (Bld) [Mass/Vol]13.1 g/dLLow13.5 - 17.5 gm/dLFTMC HemeAutoSSMCH (RBC) [Entitic mass]28.8 tvYxjayv27.0 - 34.0 pgFTMC HemeAutoSSMCHC (RBC) [Mass/Vol] 33.3 g/oIOgvegt29.4 - 36.0 gm/dLFT[facility] HemeAutoSSMCV (RBC) [Entitic vol]86.4 fL Dzoktb72.0 - 100.0 fLFTMC HemeAutoSSPlatelet mean volume (Bld) [Entitic vol]8.5 fLNormal6.4 - 10.8 fLFT[facility] HemeAutoSSPlatelets (Bld) [#/Vol]167.0 E9/GVpyuxd978.0 - 500.0 E9/L[facility] HemeAutoSSRBC (Bld) [#/Vol]4.5 E12/LNormal4.3 - 5.9 E12/L[facility] HemeAutoSSWBC corrected for nucl RBC Auto (Bld) [#/Vol]4.8 E9/LNormal4.0 - 11.0 E9/L[facility] HemeAutoSSCHEMISTRYOrdered By: SYSTEM SYSTEM on [id number] [Mass/Vol]2.5 g/dLLow3.3 - 5.0 gm/dLFT[facility] RemisolAlbumin/Globulin [Mass ratio]0.9 {ratio}Low1.1 - 2.2[facility] RemisolALP [Catalytic activity/Vol]43 [iU]/lIaanqn08 - 98 Int._Unit/LFT[facility] RemisolALT No additional P-5'-P [Catalytic activity/Vol]10 [iU]/dNormal6 - 46 Int._Unit/LFT[facility] RemisolAnion gap [Moles/Vol]7 mmol/LNormal6 - 16 mEq/LFT[facility] RemisolAST [Catalytic activity/Vol]15 [iU]/dNormal5 - 43 Int._Unit/LFT[facility] RemisolBilirubin [Mass/Vol]0.3 mg/dLNormal0.0 - 1.1 mg/dLFTMC RemisolBilirubin.direct [Mass/Vol]0.1 mg/dLNormal0.1 - 0.4 mg/dLFT[facility] Remisol Calcium [Mass/Vol]8.6 mg/dLLow8.9 - 11.1 mg/dLFTMC RemisolChloride [Moles/Vol] 102 mmol/QPjarud249 - 111 mmol/LFT[facility] RemisolCO2 [Moles/Vol]34 mmol/LHigh21 - 31 mmol/LFT[facility] RemisolCreatinine [Mass/Vol]0.8 mg/dLNormal0.5 - 1.3 mg/dLFTMC RemisolGFR/1.73 sq M.predicted among non-blacks MDRD (S/P/Bld) [Vol rate/Area]98 mL/min/1.73 e5Ftxafb>=59mL/min/1.73 m2FT Chem SComment on above:Interpretive Data: Chronic kidney disease could be indicated at eGFR's of less than 60 mL/min/1.73m2. Kidney failure is indicated at less than 15 mL/min/1.73m2. Globulin (S) [Mass/Vol]2.7 g/dLNormal1.4 - 4.0 gm/dLFTMC RemisolGlucose [Mass/Vol]93 mg/mPZsuttd13 - 199 mg/dLFTMC RemisolComment on above:Interpretive Data: If this glucose result represents a fasting glucose, interpretation should referto the following reference range: 55-99 mg/dLPotassium [Moles/Vol]3.7 mmol/LNormal3.5 - 5.3 mmol/LFTMC RemisolProtein [Mass/Vol]5.2 g/dLLow6.0 - 7.8 gm/dLFT[facility] RemisolSodium [Moles/Vol]139 mmol/AKboxed443 - 145 mmol/LFT[facility] Remisol TSH Qn1.15 m[IU]/LNormal0.34 - 5.60 mcIU/mLFTMC RemisolUrea nitrogen [Mass/Vol] 27 mg/dLHigh5 - 21 mg/dLFT[facility] RemisolUrea nitrogen/Creatinine [Mass ratio]34 mg/nfOchy97 - 20[facility] RemisolHEMATOLOGYOrdered By: SYSTEM SYSTEM on [...] E9/L [facility] HemeAutoSSHEMATOLOGYOrdered By: Michelle Manuel on 99-79-1458Rqplxehlbsc distribution width (RBC) [Ratio]13.3 %Mltkxu66.9 - 14.2 %[facility] HemeAutoSS Hematocrit (Bld) [Volume fraction]32.0 %Low37.7 - 49.0 %[facility] HemeAutoSS Hemoglobin (Bld) [Mass/Vol]10.9 g/dLLow13.5 - 17.5 gm/dLFTMC HemeAutoSSMCH (RBC) [Entitic mass]29.4 qhPuyops29.0 - 34.0 pgFTMC HemeAutoSSMCHC (RBC) [Mass/Vol] 34.2 g/pZNldfqw92.4 - 36.0 gm/dLFTMC HemeAutoSSMCV (RBC) [Entitic vol]85.8 fL Lvvqsu80.0 - 100.0 fLFTMC HemeAutoSSPlatelet mean volume (Bld) [Entitic vol]8.3 fLNormal6.4 - 10.8 fLFTMC HemeAutoSSPlatelets (Bld) [#/Vol]156.0 E9/VAbaayw652.0 - 500.0 E9/LFT[facility] HemeAutoSSRBC (Bld) [#/Vol]3.7 E12/LLow4.3 - 5.9 E12/LFT[facility] HemeAutoSSWBC corrected for nucl RBC Auto (Bld) [#/Vol]5.8 E9/LNormal4.0 - 11.0 E9/L[facility] HemeAutoSSCHEMISTRYOrdered By: Krishna Carter on [id number] [Mass/Vol]120 mg/xQRzwc88 - 99 mg/dLFTMC POC SubsectionComment on above:Result Comment: Notified RN/MDPOC UsernameSISAAC, Edin Interpretation CodeFT[facility] POC SubsectionSodium [Moles/Vol]122529486341 mmol/LInvalid Interpretation CodePH[facility] POC SubsectionSodium [Moles/Vol]407305875 mmol/LInvalid Interpretation CodePH[facility] POC SubsectionCHEMISTRYOrdered By: SYSTEM SYSTEM on 66-73-5352Lofxieq [Mass/Vol]3.2 g/dLLow3.3 - 5.0 gm/dLFT[facility] Remisol Albumin/Globulin [Mass ratio]1.0 {ratio}Low1.1 - 2.2[facility] RemisolALP [Catalytic activity/Vol]58 [iU]/cKmdbuv84 - 98 Int._Unit/L[facility] RemisolALT No additional P-5'-P [Catalytic activity/Vol]10 [iU]/dNormal6 - 46 Int._Unit/L[facility] Remisol Anion gap [Moles/Vol]10 mmol/LNormal6 - 16 mEq/L[facility] RemisolAST [Catalytic activity/Vol]16 [iU]/dNormal5 - 43 Int._Unit/LFT[facility] RemisolBilirubin [Mass/Vol] 0.5 mg/dLNormal0.0 - 1.1 mg/dLFTMC RemisolBilirubin.direct [Mass/Vol]0.2 mg/dL Normal0.1 - 0.4 mg/dLFTMC RemisolBilirubin.indirect [Mass or moles/Vol]0.4 mg/dL Normal0.1 - 0.9 mg/dLFT[facility] RemisolCalcium [Mass/Vol]9.1 mg/dLNormal8.9 - 11.1 mg/dLFTMC RemisolChloride [Moles/Vol]98 mmol/WNci251 - 111 mmol/LFT[facility] RemisolCO2 [Moles/Vol]36 mmol/LHigh21 - 31 mmol/LFT[facility] RemisolCreatinine [Mass/Vol]0.8 mg/dLNormal0.5 - 1.3 mg/dLMC RemisolGFR/1.73 sq M.predicted among non-blacks MDRD (S/P/Bld) [Vol rate/Area]98 mL/min/1.73 k2Zhmcix>=59mL/min/1.73 m2[facility] Chem SComment on above:Interpretive Data: Chronic kidney disease could be indicated at eGFR's of less than 60 mL/min/1.73m2. Kidney failure is indicated at less than 15 mL/min/1.73m2.Globulin (S) [Mass/Vol]3.3 g/dLNormal1.4 - 4.0 gm/dLFT[facility] RemisolGlucose [Mass/Vol]107 mg/aWEslcds18 - 199 mg/dLFTMC RemisolComment on above:Interpretive Data: If this glucose result represents a fasting glucose, interpretation should referto the following reference range: 55-99 mg/dL Potassium [Moles/Vol]4.2 mmol/LNormal3.5 - 5.3 mmol/LFT[facility] RemisolProtein [Mass/Vol]6.5 g/dLNormal6.0 - 7.8 gm/dLFT[facility] RemisolSodium [Moles/Vol]140 mmol/L Rsslyi906 - 145 mmol/LFT[facility] RemisolUrea nitrogen [Mass/Vol]19 mg/dLNormal5 - 21 mg/dLFT[facility] RemisolUrea nitrogen/Creatinine [Mass ratio]24 mg/ymSxaa49 - 20[facility] RemisolHEMATOLOGYOrdered By: SYSTEM SYSTEM on 36-94-7530Nfuprwhmu/100 WBC (Bld) 0.1 %Normal0.0 - 2.0 %[facility] [...] 7.5 E9/LFT[facility] HemeAutoSSHEMATOLOGYOrdered By: Michelle Manuel on 51-90-0004Aywuuniyznf distribution width (RBC) [Ratio]13.1 %Zbsprf40.9 - 14.2 % [facility] HemeAutoSSHematocrit (Bld) [Volume fraction]36.2 %Low37.7 - 49.0 %[facility] HemeAutoSSHemoglobin (Bld) [Mass/Vol]12.2 g/dLLow13.5 - 17.5 gm/dLFTMC HemeAutoSSMCH (RBC) [Entitic mass]29.1 ptLnwkuo04.0 - 34.0 pgFTMC HemeAutoSSMCHC (RBC) [Mass/Vol]33.7 g/pWPflhno95.4 - 36.0 gm/dLFTMC HemeAutoSSMCV (RBC) [Entitic vol]86.4 sNRpiohq52.0 - 100.0 fLFTMC HemeAutoSSPlatelet mean volume (Bld) [Entitic vol]7.9 fLNormal6.4 - 10.8 fLFTMC HemeAutoSSPlatelets (Bld) [#/Vol]147.0 E9/HPof680.0 - 500.0 E9/L[facility] HemeAutoSSRBC (Bld) [#/Vol]4.2 E12/L Low4.3 - 5.9 E12/LFT[facility] HemeAutoSSWBC corrected for nucl RBC Auto (Bld) [#/Vol] 5.5 E9/LNormal4.0 - 11.0 E9/L[facility] HemeAutoSSNo Panel InformationOrdered By: ANGPROCESSSERVER MICROBIOLOGY on 74-97-1305Ngama Culture CharcoalNo growth at 2 days. Final to follow at 7 days.[facility] SouthBlood Culture CharcoalNo growth at 2 days. Final to follow at 7 days.[facility] SouthURINALYSISOrdered By: Kojo Klein on 86-96-0439Tdvbgrpxj Ql (U) Negative (05/28/23 12:53 AM)NormalNegativePH[facility] UA Auto SSClarity (U)Clear (05/28/23 12:53 AM)NormalClearF[facility] [place] Auto SSColor (U)Yellow (05/28/23 12:53 AM)NormalYellowFT UA Auto SSEpithelial cells.squamous LM.HPF (Urine sed) [#/Area]0-2 /HPFNormal0-2/HPFPH[facility]A Auto SSGlucose Test strip (U) [Mass/Vol]Negative (05/28/23 12:53 AM)NormalNegativePH[facility]A Auto SSHemoglobin Ql (U)Negative (05/28/23 12:53 AM)NormalNegativePH[facility]A Auto SSKetones (U) [Mass/Vol]Negative (05/28/23 12:53 AM)NormalNegativePH[facility]A Auto SSLithium.plasma/[place].RBC (Bld) [Mass ratio]0-3 /HPFNormal0-3/HPFPH[facility]A Auto SSNitrite Ql (U)Negative (05/28/23 12:53 AM)NormalNegativePH[facility] Auto SSpH (U)6.5 *NA* (05/28/23 12:53 AM)Invalid Interpretation Code5.0 - 9.0[facility]A Auto SSProtein (U) [Mass/Vol]Negative (05/28/23 12:53 AM)NormalNegativePH[facility] Auto SSSpecific gravity (U) [Rel density]1.010 *NA* (05/28/23 12:53 AM)Invalid Interpretation Code1.005 - 1.030[facility] Auto SSUA Spec DescRandom Urine (05/28/23 12:53 AM)NormalPH[facility] Auto SSUrobilinogen Qn (U){Dnai'U}/dLInvalid Interpretation Code0.0 - 1.0 EU/dLPH[facility]A Auto SSWBC Auto Ql (U)Negative (05/28/23 12:53 AM)NormalNegativePH[facility]A Auto SSWBC LM.HPF (Urine sed) [#/Area] 0-5 /HPFNormal0-5/HPFMC UA Auto SSCHEMISTRYOrdered By: SYSTEM SYSTEM on 67-88-3373Vstwmzkr I.cardiac [Mass/Vol]6.00 pg/mLLow15.90 - 38.40 pg/mLPH[facility] RemisolComment on above:Interpretive Data: The 95% CI (Confidence Interval) PPV (Positive Predictive Value) for myocardial infarction in females is 38 pg/mL, in males 51 pg/mL. The results should be used in conjunction withclinical conditions of myocardial infarction. (Aviate High Sensitivity Troponin I Instructions For Use, [employer], March 2018)Troponin I.cardiac [Mass/Vol]6.00 pg/mLLow15.90 - 38.40 pg/mLPH[facility] RemisolComment on above:Interpretive Data: The 95% CI (Confidence Interval) PPV (Positive Predictive Value) for myocardial infarction in females is 38 pg/mL, in males 51 pg/mL. The results should be used in conjunction withclinical conditions of myocardial infarction. (Aviate High Sensitivity Troponin I Instructions For Use, [employer], March 2018)Troponin I.cardiac [Mass/Vol]6.40 pg/mLLow15.90 - 38.40 pg/mLPH[facility] RemisolComment on above:Interpretive Data: The 95% CI (Confidence Interval) PPV (Positive Predictive Value) for myocardial infarction in females is 38 pg/mL, in males 51 pg/mL. The results should be used in conjunction withclinical conditions of myocardial infarction. (Aviate High Sensitivity Troponin I Instructions For Use, [employer], March 2018)CHEMISTRYOrdered By: Comfort Pavon on 53-74-3317Ntdydiwgyms peptide B (Bld) [Mass/Vol]81 pg/mLHigh5 - 80 pg/mLPH[facility] HemeManSSCOAGULATIONOrdered By: Lori Geronimo on 65-86-1925bHQU Coag (PPP) [Time]27.2 fEtzmgb86.1 - 36.5 second(s) [facility] Auto CoagComment on above:Interpretive Data: Parameter 15 [...] the same coagulation reagent and instrumentation as [facility]. Currently there are no coagulation studies available worldwide for children to 14 days, andno normal ranges. Heparin therapeutic range (represented by Anti-Factor Xa activity of 0.2 - 0.4 U/mL) corresponds to PTT of 56.6 - 109.0 sec.INR Coag (PPP) [Relative time]1.3 {INR}Invalid Interpretation CodePH[facility] [place] Auto CoagComment on above:Interpretive Data: INR results are specifically intended to assess patients stabilized on long-term Anticoagulation therapy suggested INR s Less Intensive Anticoagulation 2.0 3.0 Conventional Range 3.0 4.5PT Coag (PPP) [Time]14.2 sHigh9.4 - 12.5 second(s)[facility] Auto CoagComment on above:Interpretive Data: 15 days [...] the same coagulation reagent and instrumentation as [facility]. Currently there are no coagulation studies available worldwide for children to 14 days, andno normal ranges. Blood GasesOrdered By: Shyann Hu on 05-27-2023/A Ratio Art 72.70 %Normal>=0.80%[facility] Resp Auto SSAaDO2 Art35.4 mm[Hg]High5.0 - 15.0 mmHgPH[facility] Resp Auto SSAllens TestNot Applicable (05/27/23 1:39 PM)NormalFT Resp Auto SSBase Excess Arterial9.7 mmol/LNormal >=2.8mmol/LFTMC Resp Auto SScCa2+ Art4.56 mg/dLNormal4.40 - 5.30 mg/dLFT Resp Auto SScCl- Art95.0 mmol/YKcq751.0 - 111.0 mmol/LFTMC Resp Auto SScGlu Obr183 mg/hMQddf86 - 99 mg/dLFT Resp Auto SScK+ Art4.3 mmol/LNormal3.5 - 5.3 mmol/L FT Resp Auto SScLac Art0.9 mmol/LNormal0.5 - 2.2 mmol/LFTMC Resp Auto SScNa+ Gmy006.0 mmol/WVqwpkj788.0 - 145.0 mmol/LFTMC Resp Auto SSDrawn bytrsInvalid Interpretation CodeFT Resp Auto SSFCOHb Art1.6 %Normal1.5 - 4.9 %FT Resp Auto SSComment on above:Interpretive Data: Reference range Nonsmoker <1.5% Smoker <5.0% Heavy Smoker <9.0%FMetHb Art0.3 %Normal0.0 - 1.9 %FT Resp Auto NWIX3Vz Art97.0 %Yxnmzw25.0 - 100.0 %[facility] Resp Auto SSHCO3 (Bld) [Moles/Vol]33.4 mmol/LHigh22.0 - 26.0 mmol/LFTMC Resp Auto SSHemoglobin (Bld) [Mass/Vol]11.7 g/dLLow12.0 - 17.0 gm/dLFT Resp Auto SSP CO2 Euedudyy04.0 mm[Hg]High35.0 - 45.0 mmHgFT Resp Auto SSP O2 Findadev33.5 mm[Hg]Bbhzft71.0 - 100.0 mmHgPH[facility] Resp Auto SSpH (Bld)7.404 [pH]Normal7.350 - 7.450FT Resp Auto SSSample SiteR Radial (05/27/23 1:39 PM)NormalFT Resp Auto SSSample TypeArterial Draw (05/27/23 1:39 PM)NormalFT Resp Auto SSSodium [Moles/Vol]21.0 mmol/LInvalid Interpretation CodeFT Resp Auto SSMICRO OTHER TESTSOrdered By: Lori Geronimo on 67-72-9011Jluzqfxbmm A AgNegative (05/27/23 1:47 PM)NormalNegativePH[facility] Man SeroInfluenzae B AgNegative 1 (05/27/23 1:47 PM)NormalNegativePH[facility] Man SeroComment on above:Interpretive Data: Test sensitivity and specificity vary for age group, specimen type, antigen types, and prevalence of disease. Test results must be evaluated in conjunction with other clinical dataavailable to the physician. Individuals who received nasally administered Influenza A vaccine may have positive test results up to 3 days after vaccination.Rapid COV Int NEG CtlPass (05/27/23 1:47 PM)NormalPH[facility] Man SeroRapid COV Int POS CtlPass (05/27/23 1:47 PM)NormalPH[facility] Man SeroSARS-CoV+SARS-CoV-2 (COVID-19) Ag IA.rapid Ql (Resp)Detected 16 *ABN* (05/27/23 1:47 PM)Invalid Interpretation CodeNot DetectedPH[facility] Man SeroComment on above:Interpretive Data: The [employer] System for Rapid Detection of SARS-CoV-2 is [...] sooner.No Panel InformationOrdered By: Marie Macario on 46-19-6106Vhrun Culture CharcoalStaphylococcus species coagulase negative In 2 of 2 blood culture bottles drawn. Isolated from aerobic and anaerobic bottles Preliminary result of gram positive cocci in clusters called to Dr. Spivey 05/28/2023 12:28:37 by KD. Also alerted that his second set of blood cultures looks to be a different organism.[facility] SouthBlood Culture CharcoalGram Positive Rods resembling diphtheroids and Staphylococcus species coagulase negative In 2 of 2 blood culture bottles drawn. Isolated from aerobic and anaerobic bottles Preliminary gram stain result of gram positive rods given to Dr. Spivey 05/28/2023 12:28:37.[facility] SouthCHEMISTRYOrdered By: SYSTEM SYSTEM on 04-32-6905Aoyomfgi specific Ag [Mass/Vol]ng/mLNormal0.1 - 3.5 ng/mL [facility] RemisolCBC AUTO DIFFon [id number] #0.0 103/ulNormal0.0-0.1The [facility] HospitalComment on above:Performed By: #### CBC #### [facility] [address] [address] [address] Nida Isbellphils/100 WBC (Bld)0.6 %Normal0.2-2.0The [facility] Comment on above:Performed By: #### CBC #### [facility] [address] [address] [address] Nida Dumont #0.1 103/ulNormal0.0-0.7The [facility] HospitalComment on above: Performed By: #### CBC #### [facility] [address] [place] [address] Dr. Nida Kiserosinophils/100 WBC (Bld)2.3 %Normal0.9-7.0The [facility] Comment on above:Performed By: #### CBC #### [facility] [address] [place] [address] Dr. Nida Kiserrythrocyte distribution width (RBC) [Ratio]13.6 %Nlvtga05.0-15.0 [facility] DaytonComment on above:Performed By: #### CBC #### [facility] [address] [place] [address] Dr. Nida CastilloHematocrit (Bld) [Volume fraction]39.7 %Critically low42.0-54.0 [facility] DaytonComment on above:Performed By: #### CBC #### [facility] [address] [place] [address] Dr. Nida CastilloHemoglobin (Bld) [Mass/Vol]12.4 g/dLCritically low14.0-18.0The [facility] HospitalComment on above:Performed By: #### CBC #### [facility] [address] [place] [address] Dr. Nida Saez #0.01 10e3/ulNormal0.00-0.03The [facility] HospitalComment on above:Performed By: #### CBC #### [facility] [address] [place] [address] Dr. Nida Saez %0.3 %Normal0.0-0.5The [facility] HospitalComment on above: Performed By: #### CBC #### [facility] [address] [place] [address] Dr. Nida StacyH #0.6 103/ulCritically low1.2-3.8The [facility] Comment on above:Performed By: #### CBC #### [facility] [address] [place] [address] Dr. Nida Quintanamphocytes/100 WBC (Bld)17.7 %Critically low20.5-60.0The [facility] HospitalComment on above:Performed By: #### CBC #### [facility] [address] [place] [address] Dr. Nida Padron DIFF REQNONormalThe [facility] HospitalComment on above: Performed By: #### CBC #### [facility] [address] [place] [address] Dr. Nida Munoz (RBC) [Entitic mass]28.1 jtHhbhda85.9-34.0The [facility] HospitalComment on above:Performed By: #### CBC #### [facility] [address] [place] [address] Dr. Nida Munoz (RBC) [Mass/Vol]31.2 g/mHQfuolz80.9-35.2The [facility] HospitalComment on above:Performed By: #### CBC #### [facility] [address] [place] [address] Dr. Nida Lui (RBC) [Entitic vol]90.0 eCPtrpkg56.0-94.0The [facility] HospitalComment on above:Performed By: #### CBC #### [facility] [address] [place] [address] Dr. Nida Mueller #0.2 103/ulCritically low0.3-0.8The [facility] HospitalComment on above:Performed By: #### CBC #### [facility] [address] [place] [address] Dr. Nida Hickeyocytes/100 WBC (Bld)6.8 %Normal1.7-12.0The [facility] Comment on above:Performed By: #### CBC #### [facility] [address] [place] [address] Dr. Nida Martinez #2.5 103/ulNormal1.4-6.5The [facility] HospitalComment on above:Performed By: #### CBC #### [facility] [address] [place] [address] Dr. Yilan ChangNeutrophils/100 WBC (Bld)72.3 %Nffenz83.0-75.0The [facility] HospitalComment on above:Performed By: #### CBC #### [facility] [address] [place] [address] Dr. Nida Riley mean volume (Bld) [Entitic vol]10.7 fLNormal9.5-13.5The [facility] HospitalComment on above:Performed By: #### CBC #### [facility] [address] [place] [address] Dr. Nida CastilloPLT177 103/xeSmgmcd685-550Dth [facility] on above: Performed By: #### CBC #### [facility] [address] [place] [address] Dr. Nida CastilloRBC4.41 106/ulCritically low4.70-6.10The [facility] HospitalCompontiac general hospital on above:Performed By: #### CBC #### [facility] [address] [place] [address] Dr. Nida CastilloWBC3.5 103/ulCritically low4.0-11.0The [facility] on above:Performed By: #### CBC #### [facility] [address] [place] [address] Dr. Nida HoskinsID PROFILEon [id number]-HDL RATIO NORMSKettering Memorial HospitalCompontiac general hospital on above:Result Comment: 3.3 - 4.4 LOW RISK 4.4 - 7.1 AVERAGE RISK 7.1 - 11.0 MODERATE RISK >11.0 HIGH RISKPerformed By: #### LIPID, CMP #### [facility] [address] [place] [address] Dr. Nida CastilloCholesterol [Mass/Vol]204 mg/dLCritically high<=200The [facility] on above:Performed By: #### LIPID, CMP #### [facility] [address] [place] [address] Dr. Nida Gonzalezesterol in HDL [Mass/Vol]80 mg/dLCritically aarm32-36Yte [facility] on above:Performed By: #### LIPID, CMP #### [facility] [address] [address] [address] Nida Gonzalezesterol in LDL [Mass/Vol]112.8 mg/dLMercy Health West HospitalComment on above:Performed By: #### LIPID, CMP #### [facility] [address] [place] [address] Dr. Nida Gonzalezesterreina.total/Cholesterol in HDL [Mass ratio]2.6 {ratio} NormalThe [facility] HospitalComment on above:Performed By: #### LIPID, CMP #### [facility] [address] [place] [address] Dr. Nida Franklin NORMAL> or = 60 mg/dl - LOW CARDIOVASCULAR RISK <40 mg/dl - HIGH CARDIOVASCULAR RISKMercy Health West HospitalCompontiac general hospital on above:Performed By: #### LIPID, CMP #### [facility] [address] [place] [address] Dr. Nida Hardy CALC NORMALSEE BELOWMercy Health West HospitalComment on above:Result Comment: <100 mg/dl OPTIMAL 100 - 129 mg/dl NEAR OR ABOVE OPTIMAL 130 - 159 mg/dl BORDERLINE HIGH 160 - 189 mg/dl HIGH >190 mg/dl VERY HIGH Performed By: #### LIPID, CMP #### [facility] [address] [place] [address] Dr. Nida CastilloTriglyceride [Mass/Vol]56 mg/dLNormal<=150[facility] Comment on above:Performed By: #### LIPID, CMP #### [facility] [address] [place] [address] Dr. Nida JoséLDL CALC11.2 mg/dLNoCleveland Clinic Lutheran HospitalComment on above: Performed By: #### LIPID, CMP #### [facility] [address] [place] [address] Dr. Nida Olivier 14(COMP METB)on 79-99-0800Walbjhc [Mass/Vol]3.8 g/dLNormal 3.4-5.0[facility] DaytonComment on above:Performed By: #### LIPID, CMP #### [facility] [address] [address] [address] Nida CastilloAlbumin/Globulin [Mass ratio]1.1 {ratio}NormalThe [facility] Doctors Hospitalment on above:Performed By: #### LIPID, CMP #### [facility] [address] [address] [address] Nida CorreiaP [Catalytic activity/Vol]74 U/QZlepxy18-170Qxu [facility] HospitalComment on above:Performed By: #### LIPID, CMP #### [facility] [address] [address] [address] Nida CorreiaT [Catalytic activity/Vol]23 U/GCaxgkl68-91Ivn [facility] HospitalComment on above:Performed By: #### LIPID, CMP #### [facility] [address] [address] [address] Nida Nielsonon gap [Moles/Vol]8.9 mmol/LNormalThe [facility] HospitalComment on above:Performed By: #### LIPID, CMP #### [facility] [address] [address] [address] Nida CastilloAST [Catalytic activity/Vol]20 U/VLyilqa75-28Gmt [facility] on above:Performed By: #### LIPID, CMP #### [facility] [address] [address] [address] Nida CastilloBilirubin [Mass/Vol]0.4 mg/dLNormal0.2-1.0The [facility] Comment on above:Performed By: #### LIPID, CMP #### [facility] [address] [address] [address] Nida CastilloCalcium [Mass/Vol]9.1 mg/dLNormal8.5-10.1The [facility] Comment on above:Performed By: #### LIPID, CMP #### [facility] [address] [address] [address] Nida CastilloChloride [Moles/Vol]102 mmol/QLtnsab10-238Qpv [facility] Comment on above:Performed By: #### LIPID, CMP #### [facility] [address] [address] [address] Nida CastilloCO2 [Moles/Vol]34.4 mmol/LCritically high21.0-32.0[facility] above:Performed By: #### LIPID, CMP #### [facility] [address] [address] [address] Nida CastilloCreatinine [Mass/Vol]0.98 mg/dLNormal0.70-1.30[facility] above:Performed By: #### LIPID, CMP #### [facility] [facility] [address] [address] [address] Nida KiserGFR-AF PAKISTANI>60Normal>=60The [facility] HospitalComment on above:Performed By: #### LIPID, CMP #### [facility] [address] [place] [address] Dr. Nida KiserGFR-NON AF PAKISTANI>60Normal>=60The [facility] HospitalComment on above:Performed By: #### LIPID, CMP #### [facility] [address] [place] [address] Dr. Niad CastilloGlobulin (S) [Mass/Vol]3.4 g/dLNormalThe [facility] HospitalComment on above:Performed By: #### LIPID, CMP #### [facility] [address] [address] [address] Nida CastilloGlucose [Mass/Vol]88 mg/cHOkrmsg26-879Mlx [facility] Comment on above:Performed By: #### LIPID, CMP #### [facility] [address] [address] [address] Nida CastilloPotassium [Moles/Vol]4.3 mmol/LNormal3.5-5.1The [facility] Comment on above:Performed By: #### LIPID, CMP #### [facility] [address] [address] [address] Nida CastilloProtein [Mass/Vol]7.2 g/dLNormal6.4-8.2The [facility] Comment on above:Performed By: #### LIPID, CMP #### [facility] [address] [address] [address] Nida CastilloSodium [Moles/Vol]141 mmol/OHeiapa245-972Wyt [facility] Comment on above:Performed By: #### LIPID, CMP #### [facility] [address] [address] [address] Nida CastilloUrea nitrogen [Mass/Vol]24.0 mg/dLCritically high7.0-18.0The [facility] HospitalComment on above:Performed By: #### LIPID, CMP #### [facility] [address] [address] [address] Nida Carmona nitrogen/Creatinine [Mass ratio]24.5 mg/mgNormalThe [facility] HospitalComment on above:Performed By: #### LIPID, CMP #### [facility] [address] [address] [address] Nida Castillo Vital Signs Date TimeVital SignValuePerforming ZtzqzemkxHetjkroy83-56-3783 10:25-0400Body mass index (BMI) [Ratio]29.29 kg/q9Mkdrzrw Radha-Nossek ASSEMBLY LINE INSPECTOR-ENVIRONMENTAL COMPLIANCE MANAGER Work Phone: [phone] [place], [place] [address]Sjxpzvshqh65-61-9586 10:25-040Body fawiwa50.98 kgFelicia Radha-Nossek ASSEMBLY LINE INSPECTOR-ENVIRONMENTAL COMPLIANCE MANAGER Work Phone: [phone] [place], [place] [address]Uupjjuhxcj85-10-1742 10:25040Diastolic blood kiwkbjau55 mm[Hg]Abi Radha-Nossek ASSEMBLY LINE INSPECTOR-ENVIRONMENTAL COMPLIANCE MANAGER Work Phone: [phone] [place], [place] [address]Fcufpqjfpm91-04-5220 10:25-040Heart rate71 /min Abi Radha-Nossek ASSEMBLY LINE INSPECTOR-ENVIRONMENTAL COMPLIANCE MANAGER Work Phone: [phone] [place], [place] [address]Ajhvfwckgi82-03-9622 10:25-040Systolic blood evlmfofa711 mm[Hg]Abi Radha-Nossek ASSEMBLY LINE INSPECTOR-ENVIRONMENTAL COMPLIANCE MANAGER Work Phone: [phone] [place], [place] [address]Iowbggwbmo85-55-8102 11:26-0400Body entgrs744.34 cmBenjamin Ball DO Work Phone: [phone])[address] [place], [place] 7730310-30-2025 11:26-0400 Body mass index (BMI) [Ratio]30.4 kg/n3Kjpmedck Ball DO Work Phone: 1(419)[address] [place], [place] 7730310-30-2025 11:26-0400 Body dqzazz96.88 kgBenjamin Ball DO Work Phone: 1(419)[address] [place], [place] 7730310-30-2025 11:26-0400 Diastolic blood meuzhvde97 mm[Hg]Sammy Ball DO Work Phone: 1(419)[address] [place], [place] 7730310-30-2025 11:26-0400 Heart rate77 /minBenjamin Ball DO Work Phone: 1(419)[address] [place], [place] 7730310-30-2025 11:26-0400 Respiratory rate18 /minBenjamin Ball DO Work Phone: 1(419)[address] [place], [place] 7730310-30-2025 11:26-0400 SaO2% (BldA) [Mass fraction]97 %Sammy Ball DO Work Phone: 1(419)[address] [place], [place] 7730310-30-2025 11:26-0400 Systolic blood yupglptn619 mm[Hg]Sammy Ball DO Work Phone: 1(419)[address] [place], [place] 7730308-20-2025 14:38-0400 Body xpjmlr5570.8 cmBenjamin Ball DO Work Phone: 1(419)[address] [place], [place] 7730308-20-2025 14:38-0400 Body mass index (BMI) [Ratio]0.3 kg/k9Vqsbhjeh Ball DO Work Phone: 1(419)[address] [place], [place] 7730308-20-2025 14:38-0400 Body ydfxcr80.42 kgBenjamin Ball DO Work Phone: 1(419)[address] [place], [place] 7730308-20-2025 14:38-0400 Diastolic blood mbupcjan51 mm[Hg]Sammy Ball DO Work Phone: 1(419)[address] [place], [place] 7730308-20-2025 14:38-0400 Heart rate59 /minBenjamin Ball DO Work Phone: [phone]08-20-2025 14:38-0400 Respiratory rate16 /minBenjamin Ball DO Work Phone: 1(020)[address] [place], [place] 7730308-20-2025 14:38-0400 SaO2% (BldA) [Mass fraction]99 %Sammy Ball DO Work Phone: [phone])[address] [place], [place] 7730308-20-2025 14:38-0400 Systolic blood ofvynjux930 mm[Hg]Sammy Ball DO Work Phone: 1(979)[address] [place], [place] 7730307-22-2025 12:10-0400 Body amveyz149.34 cmBenjamin Ball DO Work Phone: 1(535)[address] [place], [place] 7730307-22-2025 12:10-0400 Body mass index (BMI) [Ratio]29.9 kg/q0Rdavaore Ball DO Work Phone: 1(361)[address] [place], [place] 7730307-22-2025 12:10-0400 Body utbphu95.23 kgBenjamin Ball DO Work Phone: 1(643)[address] [place], [place] 7730307-22-2025 12:10-0400 Diastolic blood lffzxsky92 mm[Hg]Sammy Ball DO Work Phone: 1(396)[address] [place], [place] 7730307-22-2025 12:10-0400 Heart rate66 /minBenjamin Ball DO Work Phone: 1(978)[address] [place], [place] 7730307-22-2025 12:10-0400 Respiratory rate12 /minBenjamin Ball DO Work Phone: 1(288)[facility] [place], [place] 9532107-22-2025 12:10-0400 Systolic blood gvzcysun219 mm[Hg]Sammy Ball DO Work Phone: [phone]05-19-2025 10:46-0400 Body khvysn439.9 cmAngela Lowe PA Work Phone: [facility] CenterUlngawliff99-70-7014 10:46-0400Body mass index (BMI) [Ratio]28.48 kg/k3Bldsjh Lowe PA Work Phone: [facility] CenterJrotgkbmjh28-45-3903 10:46-0400Body .25 kgAngela Lowe PA Work Phone: [facility] CenterXzrptneqxm13-64-2418 10:46-0400Diastolic blood teuhykcr73 mm[Hg]Michelle Lowe PA Work Phone: [phone]-[facility] CenterHazztfdhom26-47-2991 10:46-0400Heart rate76 /min Michelle Lowe PA Work Phone: [phone]-[facility] CenterVraspahjef49-66-7963 10:46-0438VsO1% (BldA) [Mass fraction]95 %Michelle Lowe PA Work Phone: [facility] CenterYqgdfiekvh36-92-9331 10:46-0400Systolic blood ssvdozmw731 mm[Hg]Michelle Lowe PA Work Phone: 1(960)018-[facility] CenterYpbwergahu70-55-3301 09:51-0400Body mass index (BMI) [Ratio]28.89 kg/t8Tkzuiwo Radha-Nossek ASSEMBLY LINE INSPECTOR-ENVIRONMENTAL COMPLIANCE MANAGER Work Phone: 1([phone] [place], [place] 0244604-04-2025 09:51-0400Body xbidcc61.62 kgFelicia Radha-Nossek ASSEMBLY LINE INSPECTOR-ENVIRONMENTAL COMPLIANCE MANAGER Work Phone: [phone])[address]04-04-2025 09:51-0400Diastolic blood wsugerxa79 mm[Hg]Abi Radha-Nossek ASSEMBLY LINE INSPECTOR-ENVIRONMENTAL COMPLIANCE MANAGER Work Phone: [phone] [place], [place] [address]Dwswrksbmb36-91-0620 09:51-0400Heart rate68 /min Abi Radha-Nossek ASSEMBLY LINE INSPECTOR-ENVIRONMENTAL COMPLIANCE MANAGER Work Phone: [phone] [place], [place] [address]Ceuwbdubkc05-24-6871 09:51-0400Systolic blood lclosluh887 mm[Hg]Abi Radha-Nossek ASSEMBLY LINE INSPECTOR-ENVIRONMENTAL COMPLIANCE MANAGER Work Phone: [facility] CenterTerioljmbm72-50-3550 10:25-0500Body .9 cmAngela Lowe PA Work Phone: [facility] CenterJqcefzbjnd78-57-8924 10:25-0500Body mass index (BMI) [Ratio]27.26 kg/x8Cctbtd Lowe PA Work Phone: [facility] CenterJwrpvrikcu38-36-8456 10:25-0500Body .17 kgAngela Lowe PA Work Phone: [facility] CenterRygnqplwga84-49-9350 10:25-0500Diastolic blood hiqsmovg15 mm[Hg]Michelle Lowe PA Work Phone: [facility] CenterVgqcpoerkt75-84-7578 10:25-0500Heart rate79 /min Michelle Lowe PA Work Phone: [facility] CenterViljbaobmp86-33-1946 10:25-0500Respiratory rate16 /minAngela Lowe PA Work Phone: [facility] CenterXdcsujnxwe31-70-0692 10:25-1569ItC4% (BldA) [Mass fraction]93 %Michelle Lowe PA Work Phone: [facility] CenterSvdabhhdpy95-03-3126 10:25-0500Systolic blood chwclsji843 mm[Hg]Michelle Lowe PA Work Phone: [facility] CenterXlbpwsktkw47-88-2197 11:05-0500Body dglulb470.34 [facility]01-16-2025 11:05-0500Body mass index (BMI) [Ratio]27.9 kg/i9FtxumlrjmK[facility] Center01-16-2025 11:05-0500Body zxxibv02.88 kgK[facility]01-16-2025 11:05-0500Diastolic blood mm[Hg][facility]01-16-2025 11:05-0500 Heart rate73 /[facility]01-16-2025 11:05-0500 Respiratory rate12 /[facility]01-16-2025 11:05-0500 Systolic blood efkulstf792 mm[Hg][facility]12-06-2024 10:31-0500Body mass index (BMI) [Ratio]26.58 kg/h2Iuleuat Radha-Nossek ASSEMBLY LINE INSPECTOR-ENVIRONMENTAL COMPLIANCE MANAGER Work Phone: 1(149)[address] [place], [place] 0244612-06-2024 10:31-0500Body cztdao49.91 kgFelicia Radha-Nossek ASSEMBLY LINE INSPECTOR-ENVIRONMENTAL COMPLIANCE MANAGER Work Phone: 1(420)[address] [place], [place] 0244612-06-2024 10:31-0500Diastolic blood aujwxair82 mm[Hg]Abi Garcia-Nossek ASSEMBLY LINE INSPECTOR-ENVIRONMENTAL COMPLIANCE MANAGER Work Phone: 1(808)[address] [place], [place] 0244612-06-2024 10:31-0500Heart rate64 /min Abi Fletcheror-Nossek ASSEMBLY LINE INSPECTOR-ENVIRONMENTAL COMPLIANCE MANAGER Work Phone: 1(879)[address] [place], [place] 0244612-06-2024 10:31-0500Systolic blood mm[Hg]Abi Garcia-Nossek ASSEMBLY LINE INSPECTOR-ENVIRONMENTAL COMPLIANCE MANAGER Work Phone: 1(788)[address] [place], [place] 0244611-07-2024 10:58-0500Blood Pressure LocationJENNIFER MARYBETH [facility]11-07-2024 10:58-0500Body okafotphnqp29.6 [degF]SUSAN MARYBETH [facility]11-07-2024 10:58-0500Diastolic blood zztwuivu87 mm[Hg]SUSAN MARYBETH [facility]11-07-2024 10:58-0500Heart rate80 /minJENNIFER MARYBETH [facility] [address] [address]-07-2024 10:58-0500Respiratory rate16 /minJENNIFER MARYBETH [facility] [address] [address]-07-2024 10:58-0500Systolic blood wzecahzk891 mm[Hg]SUSAN MARYBETH [facility]11-05-2024 10:53-0500Body nsrjia295.9 cmAyunior SEPULVEDA Work Phone: [facility] CenterHwpvarliow47-26-6433 10:53-0500Body mass index (BMI) [Ratio]25.77 kg/m2Precious SEPULVEDA Work Phone: [address] [address]Afkoyfpleq19-33-1625 10:53-0500Body ilvpvf62.18 kgPrecious SEPULVEDA Work Phone: [address] [address]Begivcblvx38-61-3982 10:53-0500Diastolic blood bakxxpvg91 mm[Hg]Precious SEPULVEDA Work Phone: [address] [address]Afzbcszxsg70-84-0456 10:53-0500Heart rate67 /min Precious SEPULVEDA Work Phone: [address] [address]Lmvkauggbh42-47-3542 10:53-0500Respiratory rate16 /minPrecious SEPULVEDA Work Phone: [address] [address]Pecrqosjtq71-77-1562 10:53-3796UuJ1% (BldA) [Mass fraction]94 %Precious SEPULVEDA Work Phone: [address] [address]Xeykzkomwn95-94-8023 10:53-0500Systolic blood yxvtssar859 mm[Hg]Precious SEPULVEDA Work Phone: [facility] CenterWismixdpyq01-69-9893 11:42-0400Body .34 cmK[facility]10-15-2024 11:42-0400Body mass index (BMI) [Ratio]25.2 kg/v0IzoaespgmKettering Health Behavioral Medical Center10-15-2024 11:42-0400Body yiwemv61.27 kgK[facility] Center10-15-2024 11:42-0400Diastolic blood spupikso52 mm[Hg][facility]10-15-2024 11:42-0400 Heart rate53 /[facility]10-15-2024 11:42-0400 Respiratory rate12 /[facility]10-15-2024 11:42-0400 Systolic blood hyjpcypx805 mm[Hg][facility]09-09-2024 11:16-0400Body .9 cmAyunior [place] PA Work Phone: [facility] CenterOvmwurqjbp73-35-0135 11:16-0400Body mass index (BMI) [Ratio]24.01 kg/m2Precious [place] PA Work Phone: [facility] HospitalIpeolvobox24-15-5200 11:16-0400Body mdcogu35.29 kgPrecious [place] PA Work Phone: [facility] CenterMxupmouyrc37-80-7781 11:16-0400Diastolic blood ttjbceow77 mm[Hg]Precious [place] PA Work Phone: [facility] CenterQinxkzhopq92-13-4857 11:16-0400Heart rate61 /min Precious SEPULVEDA Work Phone: NOSaint [facility]'s HospitalRokdcofzbl94-35-7587 11:16-0400Respiratory rate16 /minPrecious SEPULVEDA Work Phone: [facility] CenterKgvlwqkpae17-75-2783 11:16-4715OhL9% (BldA) [Mass fraction]97 %Precious SEPULVEDA Work Phone: [facility] CenterDrbpjeyjvj53-70-1861 11:16-0400Systolic blood jpmncunz392 mm[Hg]Precious [place] PA Work Phone: [facility] CenterJrdwajsweh36-92-8422 10:50-0400Body mass index (BMI) [Ratio]23.87 kg/h2Adezheq Radha-Nossek ASSEMBLY LINE INSPECTOR-ENVIRONMENTAL COMPLIANCE MANAGER Work Phone: [facility] CenterGsjvcuojoi57-06-5453 10:50-0400Body otsrzl42.83 kgFelicia Radha-Nossek ASSEMBLY LINE INSPECTOR-ENVIRONMENTAL COMPLIANCE MANAGER Work Phone: [facility] CenterQolnnhzwun22-71-2801 10:50-0400Diastolic blood giqkfvee89 mm[Hg]Abi Radha-Nossek ASSEMBLY LINE INSPECTOR-ENVIRONMENTAL COMPLIANCE MANAGER Work Phone: NOSaint John's HospitalPeisgkbbfq46-85-8057 10:50-0400Heart rate58 /min Abi Radha-Nossek ASSEMBLY LINE INSPECTOR-ENVIRONMENTAL COMPLIANCE MANAGER Work Phone: [facility] CenterKcqjnmvzjm81-94-7123 10:50-0400Systolic blood thichcya593 mm[Hg]Abi Green ASSEMBLY LINE INSPECTOR-ENVIRONMENTAL COMPLIANCE MANAGER Work Phone: [facility] CenterCunvepktsi07-94-1224 10:53-0400Blood Pressure LocationKathy Lue [facility]08-21-2024 10:53-0400Diastolic blood ciaebadq54 mm[Hg]Kayla Lue [facility]08-21-2024 10:53-0400Heart rate53 /minKathy Lue [facility]08-21-2024 10:53-0400Respiratory rate16 /minKathy Lue [facility]08-21-2024 10:53-0400Systolic blood vchpysks497 mm[Hg]Kayla Lue [facility]07-11-2024 10:30-0400Body kekrsl558.34 cmK[facility]07-11-2024 10:30-0400Body mass index (BMI) [Ratio]23.3 kg/c2TsmrwvexcKettering Health Behavioral Medical Center07-11-2024 10:30-0400Body vohxua88.97 kgK[facility] Health Behavioral Medical Center07-11-2024 10:30-0400Diastolic blood pioqyogm07 mm[Hg] [facility]07-11-2024 10:30-0400Heart rate52 /[facility]07-11-2024 10:30-0400Respiratory rate12 /[facility]07-11-2024 10:30-0400Systolic blood hvvirmpt654 mm[Hg] [facility]04-17-2024 15:25-0400Blood Pressure Location Giorgio GONZALES [facility] Dqpycmru17-77-2366 15:25-0400Diastolic blood bdbjzkqe35 mm[Hg]Giorgio GONZALES [facility] Yrldysjq44-55-2513 15:25-0400Heart rate 70 /minMichael NILL [facility] Cwkhaxgd98-04-2064 15:25-0400 Respiratory rate16 /minMichael NILL [facility] Hdzaqfek75-17-4395 15:25-0400Systolic blood uneprjxy384 mm[Hg]Giorgio GONZALES [facility]04-10-2024 11:03-0400Body .34 cmK[facility]04-10-2024 11:03-0400Body mass index (BMI) [Ratio]21.7 kg/q3NipxakqkoKettering Health Behavioral Medical Center04-10-2024 11:03-0400Body hmevmx93.53 kgK[facility] Health [facility] Center04-10-2024 11:03-0400Diastolic blood svfijcnf75 mm[Hg][facility] 11-10-2023 11:03-0400Heart rate69 /[facility] 11-10-2023 11:03-0400Respiratory rate12 /[facility] 11-10-2023 11:03-0400Systolic blood pvrkgwsi519 mm[Hg][facility]01-11-2024 11:30-0500Body juhfow562.34 cmBenjamin Ball Other [employer] Other 01-11-2024 11:30-0500Body mass index (BMI) [Ratio] 20.64 kg/i2Mqvrhran Ball Other [employer] Other 01-11-2024 11:30-0500Body .13 kgBenjamin Ball Other [employer] Other 01-11-2024 11:30-0500Diastolic blood zdulqgfy97 mm[Hg] Sammy Ball Other [employer] Other 01-11-2024 11:30-0500Respiratory rate12 /minBenjamin Ball Other [employer] Other 01-11-2024 11:30-0500Systolic blood cmfciimm749 mm[Hg] Sammy Ball Other [employer] Other 11-30-2023 10:30-0500Body vnigkd654.34 cmBenjamin Ball Other [employer] Other 11-30-2023 10:30-0500Body mass index (BMI) [Ratio]21 kg/a4Drqluyao Ball Other [employer] Other 11-30-2023 10:30-0500Body xcsgta89.31 kgBenjamin Ball Other [employer] Other 11-30-2023 10:30-0500Diastolic blood uqpilpvs15 mm[Hg] Sammy Ball Other [employer] Other 11-30-2023 10:30-0500Respiratory rate12 /minBenjamin Ball Other [employer] Other 11-30-2023 10:30-0500Systolic blood mqapctuu244 mm[Hg] Sammy Ball Other [employer] Other 10-29-2023 16:36-0400Hourly Savanna MCCURDY [address]10-29-2023 16:36-0400 Promise to ReturnMbanefo OJUKWU [address] [place], [place] 4522310-29-2023 16:00-0400 Diastolic blood ethrbzjz27 mm[Hg]Mbanefo OJUKWU [address] [place], [place] 4522310-29-2023 16:00-0400Heart rate45 /minMbanefo OJUKWU [address] [place], [place] 4924810-29-2023 16:00-3812RkH5% (BldA) [Mass fraction]98 %Mbanefo OJUKWU [address] [place], [place] 4522310-29-2023 16:00-0400 Systolic blood mzqihwkz330 mm[Hg]Mbanefo OJUKWU [address] [place], [place] 4522310-29-2023 15:36-0400 Hourly RoundingMbanefo OJUKWU [address] [place], [place] 4522310-29-2023 15:36-0400 Promise to ReturnMbanefo OJUKWU [address] [place], [place] 4522310-29-2023 14:07-0400 Hourly RoundingMbanefo OJUKWU [address]10-29-2023 14:07-0400 Promise to ReturnMbanefo OJUKWU [address] [place], [place] 4522310-29-2023 14:00-0400Body hubaaywcbdj92.06 [degF]Mbanefo OJUKWU [address] [place], [place] 4522310-29-2023 12:00-0400Blood Pressure LocationMbanefo OJUKWU [address] [place], [place] 4522310-29-2023 12:00-0400Heart rate42 /minMbanefo OJUKWU [address] [place], [place] 4522310-29-2023 12:00-0400 Systolic blood cydquzdh013 mm[Hg]Mbanefo OJUKWU [address] [place], [place] 4522310-29-2023 08:24-0400Heart rate36 /minMbanefo OJUKWU [address] [place], [place] 4522310-29-2023 08:24-7774VqV0% (BldA) [Mass fraction]99 %Mbanefo OJUKWU [address] [place], [place] 4522310-29-2023 08:14-0400Body sbsmgthcvyx33.52 [degF]Mbanefo OJUKWU [address] [place], [place] 4522310-29-2023 08:14-0400 Diastolic blood izgvnjmx77 mm[Hg]Mbanefo OJUKWU [address] [place], [place] 4522310-29-2023 08:14-0400Mean blood jhhywkwt59 mm[Hg]Mbanefo OJUKWU [address] [place], [place] 4522310-29-2023 08:14-0400 Systolic blood obztwhbu920 mm[Hg]Mbanefo OJUKWU [address] [place], [place] 4522310-28-2023 20:00-0400Mean blood sqhaokqe287 mm[Hg]Mbanefo OJUKWU [address] [place], [place] 4522310-28-2023 16:18-0400Mean blood freheqfl23 mm[Hg]Mbanefo OJUKWU [address] [place], [place] 4522310-28-2023 14:00-0400Blood Pressure LocationMbanefo OJUKWU [address] [place], [place] 4522310-28-2023 11:37-0400Mean blood egvwukys672 mm[Hg]Mbanefo OJUKWU [address] [place], [place] 4522310-27-2023 20:00-0400Mean blood mm[Hg]Mbanefo OJUKWU [address] [place], [place] 4522310-27-2023 16:46-0400Body jeushrawozq63.34 [degF]Mbanefo OJUKWU [address] [place], [place] 4522310-27-2023 10:31-0400Body xkvvmvqugtr89.34 [degF]Mbanefo OJUKWU [address] [place], [place] 4522310-27-2023 02:51-0400 Respiratory rate18 /minMbanefo OJUKWU [address] [place], [place] 4522310-27-2023 00:45-0400 Respiratory rate17 /minMbanefo OJUKWU [address] [place], [place] 4522310-26-2023 20:05-0400 Respiratory rate17 /minMbanefo OJUKWU [address] [place], [place] 4522310-26-2023 17:15-0400Heart rate60 /minMbanefo OJUKWU [address] [place], [place] 4522310-26-2023 16:57-0400 Respiratory rate22 /minMbanefo OJUKWU [address] [place], [place] 4522310-26-2023 16:32-0400Mean blood grmpyvrs65 mm[Hg]Mbanefo OJUKWU [address] [place], [place] 4522310-26-2023 16:32-0400 Respiratory rate16 /minMbanefo OJUKWU [address] [place], [place] 4522310-26-2023 15:25-0400 Respiratory rate14 /minMbanefo ONORMAKWU [facility]10-26-2023 13:39-6716QfE9% (BldA) [Mass fraction]98.8 %Baileeanefo OJUKWU [facility] [place] [facility] [id number] 13:16-0400Heart rate79 /min Mbanefo ONORMAKWU [facility]08-16-2023 10:35-0400Blood Pressure LocationKathy Lue [facility]08-16-2023 10:35-0400Diastolic blood brdsuodp71 mm[Hg]Kayla Lue [facility]08-16-2023 10:35-0400Heart rate74 /minKathy Lue [facility]08-16-2023 10:35-0400Systolic blood onvbbxqh712 mm[Hg]Kayla Lue [facility]05-31-2023 11:30-0400Body uawadi962.34 cmBenjamin Ball Other [employer] Other 05-31-2023 11:30-0400Body mass index (BMI) [Ratio] 24.29 kg/l7Lducgpda Ball Other [facility] [employer] Other 05-31-2023 11:30-0400Body ayvzis50.02 kgBenjamin Ball Other [facility] [employer] Other 05-31-2023 11:30-0400Diastolic blood jnjhwpej15 mm[Hg] Sammy Ball Other [employer] Other 05-31-2023 11:30-0400Respiratory rate12 /minBenjamin Ball Other [facility] [employer] Other 05-31-2023 11:30-0400Systolic blood opxgqhue155 mm[Hg] Sammy Willy Other [facility] [employer] Other 05-03-2023 08:17-0400Blood Pressure LocationKathy Lue [facility]05-03-2023 08:17-0400Diastolic blood luvwhcik23 mm[Hg]Kayla Lue [facility]05-03-2023 08:17-0400Heart rate68 /minKathy Lue [facility]05-03-2023 08:17-0400Respiratory rate16 /minKathy Lue [facility]05-03-2023 08:17-0400Systolic blood ymqeuonp849 mm[Hg]Kayla Lue [facility]02-28-2023 11:30-0500Body xeiliw189.34 cmBenjamin Ball [facility] Other 02-28-2023 11:30-0500Body mass index (BMI) [Ratio] 25.13 kg/r4Mauukuuw Ball [facility] Other 02-28-2023 11:30-0500Body sahuys55.74 kgBenjamin Ball Other [place] [facility] Other 02-28-2023 11:30-0500Diastolic blood xittphsa06 mm[Hg] Sammy Doll [facility] Other 02-28-2023 11:30-0500Respiratory rate12 /minBemichael Doll Other [facility] Other 02-28-2023 11:30-0500Systolic blood iotwpqqp583 mm[Hg] Sammy LoHaria [facility] Other Encounters Encounter DateEncounter TypeCare ProviderFacilityStart: [id number] Kathy M. LueFacility[facility]: 09-58-2042zdncstddcfVhdxj M. Lue [facility]: 06-01-2025 End: [id number] tamaraheetAbi Barahona Radha-Nossek ASSEMBLY LINE INSPECTOR-ENVIRONMENTAL COMPLIANCE MANAGER Work Phone: noMS [facility]Start: 06-01-2025 End: [id number] flowsheetAbi Barahona Radha-Nossek ASSEMBLY LINE INSPECTOR-ENVIRONMENTAL COMPLIANCE MANAGER Work Phone: noMS [facility] HealthStart: 06-01-2025 End: 69-61-5202Gaszdv outpatient visit 15 minutesFehema Barahona Radha-Nossek ASSEMBLY LINE INSPECTOR-ENVIRONMENTAL COMPLIANCE MANAGER Work Phone: noMS [facility] HealthComment on above:Major depression, recurrent, chronic; Insomnia, unspecified typeStart: 06-01-2025 End: 51-13-1541vzihohdmimBMXTSIM M RADHA-NOSSEKNot AvailableStart: 05-31-2025 End: 87-04-2836uvwaqbhygcQgspfbdz Ball DO Work Phone: -[facility]Start: 05-31-2025 End: 28-04-3294Qblrrct encounter procedureBenjesus Doll DO-[facility] Work Phone: Start: 03-21-2025 End: 03-49-9437gwmdeaxrheQierfjdc Ball DO Work Phone: [facility] Work Phone: Start: 03-21-2025 End: 77-80-6004Rgkigph encounter procedureSjosefina Martinez DZYE-GVK-M-[facility] [place] Work Phone: Start: 03-19-2025 End: 53-54-7205CfpsuwNzzhmji M Fior-Nossek ASSEMBLY LINE INSPECTOR-ENVIRONMENTAL COMPLIANCE MANAGER Work Phone: NOOklahoma [facility] Behavioral HealthComment on above:Major depression, recurrent, chronicStart: 54-88-7198Jrn-patient / Non-visitBenjesus [facility] Work Phone: Start: 02-20-2025 End: 77-37-2505xfderihxlxEpelfvkl Ball DO Work Phone: [facility] Work Phone: Start: 02-20-2025 End: 89-16-0599Xxvqbrq encounter procedureBenjesus Doll DO-[facility] Work Phone: Start: 02-20-2025 End: 84-76-9103Xwprjxe encounter statusBenjesus [facility] Centertart: 01-17-2025 End: 40-65-7863vtrrjywlygHjdxh M. LueFacility:EU BellevueStart: 01-17-2025 End: 40-08-6730Eqbwnwa encounter procedureKayla Torres [facility] start: 56-69-9871Fus-patient / Non-visitSusan Bridges PA-C-[facility] Work Phone: Start: 12-18-2024 End: 66-15-1249Zvsogy flowsheetAngela Lowe PA Work Phone: aNA BELLEVUEStart: 12-18-2024 End: 17-71-0469Lrhykp flowsheetAngela Lowe PA Work Phone: ana BELLEVUEStart: 12-18-2024 End: 44-48-8782Dgsfxk outpatient visit 25 minutesAngela Lowe PA Work Phone: aNA BELLEVUEComment on above:Migraine without aura and without status migrainosus, not intractable (CMS/HCC) (Primary Dx); Myalgia; Neck pain; TremorStart: 12-18-2024 End: 95-53-1049nycxaeldvlXTDAKT LOWENot AvailableStart: 11-03-2024 End: 37-89-6435Fpaoow flowsheetFelicia M Radha-Nossek ASSEMBLY LINE INSPECTOR-ENVIRONMENTAL COMPLIANCE MANAGER Work Phone: [facility] BHStart: 11-03-2024 End: 01-19-4155Hotoad flowsheetFelicia M Radha-Nossek ASSEMBLY LINE INSPECTOR-ENVIRONMENTAL COMPLIANCE MANAGER Work Phone: N[facility] BHStart: 11-03-2024 End: 69-11-9654Fakivm outpatient visit 15 minutesFelicia M Radha-Nossek ASSEMBLY LINE INSPECTOR-ENVIRONMENTAL COMPLIANCE MANAGER Work Phone: N[facility] BHComment on above:Major depression, recurrent, chronic (HCC) (CMS/HCC); Insomnia, unspecified typeStart: 11-03-2024 End: 70-80-4742suifanymqtGWNUEFD M RADHA-NOSSEKNot AvailableStart: 08-31-2024 End: 65-65-6952Pnywxjmzr encounterMarti RODRIGUEZUSKYStart: 08-30-2024 End: 01-45-4127Yempod flowsheetAngela Lowe PA Work Phone: ana NORWALKStart: 08-30-2024 End: 65-13-7507Rvmunh flowsheetAngela Lowe PA Work Phone: aKARIE ESCALERAWALKStart: 08-30-2024 End: 96-50-4381Jjraagcec encounterAngela Lowe PA Work Phone: ana BELLEVUEStart: 08-30-2024 End: 22-95-3858Jaurnj outpatient visit 25 minutesAngela Lowe PA Work Phone: aKARIE ESCALERADARLENEomment on above:Myalgia (Primary Dx); Migraine without aura and without status migrainosus, not intractable (CMS/HCC); Tension headacheStart: 08-30-2024 End: 29-10-6057ibcmkzshymEANDEO LOWENot AvailableStart: 08-17-2024 End: 08-80-0237rbpnvtgqauVemjrdifaSumma Health [facility] Campus Work Phone: Start: 08-17-2024 End: 95-34-0085Tbkcsmw encounter procedurePsychiatric Hospital Physician GroupZanesville City Hospital Work Phone: Start: 07-07-2024 End: 99-62-0212Yidfir flowsheetFelicia M Radha-Nossek ASSEMBLY LINE INSPECTOR-ENVIRONMENTAL COMPLIANCE MANAGER Work Phone: noms [facility] BHStart: 07-07-2024 End: 59-48-1216Aezqmt flowsheetFelicia M Radha-Nossek ASSEMBLY LINE INSPECTOR-ENVIRONMENTAL COMPLIANCE MANAGER Work Phone: noms [facility] BHStart: 07-07-2024 End: 98-74-5889Irqdmg outpatient visit 15 minutesFelicia M Radha-Nossek ASSEMBLY LINE INSPECTOR-ENVIRONMENTAL COMPLIANCE MANAGER Work Phone: noMS [facility] BHComment on above:Major depression, recurrent, chronic (HCC) (CMS/HCC); Insomnia, unspecified typeStart: 07-07-2024 End: 19-47-5555omzwpjwafqJNGUBWP M RADHA-NOSSEKNot AvailableStart: 06-08-2024 End: 68-60-5499mxcbavsskaVVVUXQMZ E PERRYFacility:EU BellevueStart: 06-08-2024 End: 88-25-4634Fbgcmuf encounter procedureJENNIFER E MARYBETH [facility] start: 06-06-2024 End: 25-52-5165Wmytmo Lissette SEPULVEDA Work Phone: noms NE NEUROStart: 06-06-2024 End: 55-32-0229Snbmnz Lissette SEPULVEDA Work Phone: noms NE NEUROStart: 06-06-2024 End: 30-60-5661Ogyggm outpatient visit 25 minutesPrecious SEPULVEDA Work Phone: noms NE NEUROComment on above:Migraine without aura and without status migrainosus, not intractable (CMS/HCC) (Primary Dx); Lumbar back pain; PANCHITO (obstructive sleep apnea); Neck pain; TremorStart: 06-06-2024 End: 46-92-7878cahhynvkysAAMJ HILLCox Branson AvailableStart: 05-16-2024 End: 99-42-8294rfvhzpdwkrJbyuwmdeiSumma Health [facility] Campus Work Phone: Start: 05-16-2024 End: 19-31-0917Zblmvda encounter procedurePsychiatric Hospital Physician GroupZanesville City Hospital Work Phone: Start: 04-10-2024 End: 25-11-6845Lyorsq Lissette SEPULVEDA Work Phone: noms NE NEUROStart: 04-10-2024 End: 77-82-9759Rbehem Lissette SEPULVEDA Work Phone: noms NE NEUROStart: 04-10-2024 End: 84-97-3156Sfrcuk outpatient visit 15 minutesPrecious SEPULVEDA Work Phone: noms NE NEUROComment on above:Migraine without aura and without status migrainosus, not intractable (CMS/HCC) (Primary Dx); Tension headache; Tremor; Degenerative disc disease, lumbar; Lumbar back pain; Myalgia; Neck pain; HypersomniaStart: 03-24-2024 End: 96-26-1067Ficmyr outpatient visit 15 minutesAbi Green ASSEMBLY LINE INSPECTOR-ENVIRONMENTAL COMPLIANCE MANAGER Work Phone: [facility] BHComment on above:Major depression, recurrent, chronic (HCC) (CMS/HCC); Insomnia, unspecified typeStart: 03-22-2024 End: 98-98-2323lvbjwxgqewUvwdr M. LueFacility:EU BellevueStart: 03-22-2024 End: 49-66-5498Bkjkcjh encounter procedureKayla Torres [facility] start: 02-10-2024 End: 95-63-8583zgajvslennHffbamafbSumma Health [facility] Campus Work Phone: Start: 02-10-2024 End: 50-74-6517Ezyfesjht for general adult medical examination without abnormal findingsTriHealth Good Samaritan Hospitaltart: 02-10-2024 End: 59-21-3793Uoiihgk encounter procedurePsychiatric Hospital Physician GroupZanesville City Hospital Work Phone: Start: 57-44-1695Bvkfysi encounter statusTriHealth Good Samaritan Hospitaltart: 28-76-7718Egx-patient / Non-visitPsychiatric Hospital Physician [facility] [place] Work Phone: Start: 11-17-2023 End: 48-29-4334Ojdctnq encounter procedureMichael R NILL General Surgery Nill/[facility] [place] Start: 11-10-2023 End: 32-18-9187bbxohelzwxOydzeanzrHolmes County [facility] Work Phone: Start: 11-10-2023 End: 32-56-0696Uabpfqe encounter procedurePsychiatric Hospital Physician GroupZanesville City Hospital Work Phone: Start: 49-37-1274Cny-patient / Non-visitPsychiatric Hospital Physician GroupEvergreenhealth [facility] Work Phone: Start: 08-30-2023 End: 90-30-2301ubcjalwirmNgbuhont Ball Other [employer] Other Start: 14-34-6862Rloohpdgo encounterBenjamin BallFPG [facility] ClinicStart: 08-23-2023 End: 75-51-4900jjqbiayadkKvqyfclf Ball Other [employer] Other Start: 41-83-6484Neoqsvihq encounterBenjamin BallFPG [facility] ClinicStart: 08-12-2023 End: 35-95-9368nkuazzgkqeGwjrtpkp Ball Other [employer] Other Start: 00-39-1536Usqpfe outpatient visit 25 minutes Sammy BallFPG [facility] ClinicStart: 08-10-2023 End: 76-13-6885qxlrkpebzaZucercev Ball Other [facility] [employer] Other Start: 09-00-6951Qixadlimn encounterBenjamin BallFPG [facility] ClinicStart: 07-27-2023 End: 66-48-6864eyuqhseoppDrqrsyky Ball Other [employer]Sponto [employer] Other Start: 81-65-2984Hvcsskrup encounterBenjamin BallFPG [facility] ClinicStart: 07-12-2023 End: 76-72-2254ihfxslhuwqKmxvntio Ball Other [employer]Sp[employer] Other Start: 09-63-4763Awiiczecs encounterBenjamin BallFPG [facility] ClinicStart: 07-09-2023 End: 53-10-2473qpuhfovovkNqwqawly Ball Other [employer] Other Start: 57-63-5866Fjhzwuvuv encounterBenjamin BallFPG [facility] ClinicStart: 07-07-2023 End: 48-71-5381aipurixbgoHmokdkby Ball Other [employer] Other Start: 09-21-7155Jigeqolzx encounterBenjamin BallFPG [facility] ClinicStart: 07-01-2023 End: 26-14-9285jrdgznussaQmfmmxbi Ball Other [facility] [employer] Other Start: 00-30-1623Ztyafm outpatient visit 25 minutes Sammy BallFPG [facility] ClinicStart: 99-05-6932Hotuqjqmj encounterBenjamin BallFPG [facility] ClinicStart: 06-29-2023 End: 15-53-2594tdkwaffoctBmyresxt Ball Other [facility] [employer] Other Start: 04-69-9104Ddwvzxpcp encounterBenjamin BallFPG [facility] ClinicStart: 06-04-2023 End: 27-08-9923amezbmkjqoInnqwivk Ball Other [facility] [employer] Other Start: 95-14-2630Keninobyc encounterBenjamin BallFPG [facility] ClinicStart: 05-29-2023 End: 98-14-4650ilhfpadjuhXwekhiss Ball Other [facility] [employer] Other Start: 32-66-8148Sdhojmsvp encounterBenjamin BallFPG [facility] ClinicStart: 05-27-2023 End: 98-30-2255Qzxoxmtekd and management of inpatientMbanefo OBRIDGETWU [facility] Start: 04-09-2023 End: 56-99-9340bzbeoqzdqjSkjybwai Ball Other [employer] Other Start: 49-91-3512Obsigillo encounterBenjamin BallFPG [facility] ClinicStart: 03-17-2023 End: 65-50-3898Zqngtkb encounter procedureKayla Torres [facility] Start: 03-17-2023 End: 74-87-7873Lvwvhyh encounter procedureKayla Torres [facility] start: 03-11-2023 End: 23-66-3258ocvxxdilvdXdzmlgyv Ball Other [employer] Other Start: 92-72-0457Mmpkiewag encounterBenjamin BallFPG [facility] ClinicStart: 02-09-2023 End: 69-13-6993xgtrarwmlyGmhpqhnw Ball Other [employer] Other Start: 69-14-3464Aerdilbze encounterBenjamin BallFPG [facility] ClinicStart: 01-05-2023 End: 67-07-4701ueukknhksxXksjdjhv Ball Other [employer] Other Start: 92-49-1218Kepmfkaad encounterBenjamin BallFPG [facility] ClinicStart: 12-30-2022 End: 11-92-6004cgafoqqbjcUzbwgtxj Ball Other [employer] Other Start: 66-40-9230Sbzwnomws for general adult medical examination without abnormal findingsBenjamin BallFPG [facility] ClinicStart: 04-51-1708Uhyeabbu preventive med est patient 40-64yrsBenjamin BallFPG [facility] ClinicStart: 12-03-2022 End: 86-12-8099zpqsiciewiMgoserrp Ball Other [employer] Other Start: 39-08-8043Xidknytxu encounterBenjamin BallFPG [facility] ClinicStart: 12-02-2022 End: 22-22-5310Evtgkjs encounter Chintanedith BarahonaElis Brian [facility] start: 11-30-2022 End: 67-36-9191wdbboenubtUZUUG M LUE .Facility:E6Uezlj: 11-05-2022 End: 25-61-3360lhkvzepnqmClxfcelp Ball Other [employer] Other Start: 35-06-5204Qqgaesqpd encounterBenjamin BallFPG [facility] ClinicStart: 10-30-2022 End: 56-78-2359kzkqnmdrpdTyxjgpqu Ball Other [employer] Other Start: 25-10-4155Ladyfjpnh encounterBenjamin BallFPG [facility] ClinicStart: 09-30-2022 End: 88-25-6022xmdrtzkhgoXmpvkrwr Ball Other [employer] Other Start: 55-12-5759Ghkrigezq encounterBenjamin BallFPG [facility] ClinicStart: 09-29-2022 End: 08-32-2566sumooayqtmQuenreop Ball Other [employer] Other Start: 49-48-4329Tqsqea outpatient visit 25 minutes Sammy BallFPG [facility] ClinicStart: 91-92-2360Pzuzypprh for general adult medical examination without abnormal findingsNJESUS DOLLAccess Hospital [facility] Start: 12-10-2021 End: 49-04-9437zdldswuoeiZDXCMVVP BALLFacility:C5Ishbs: 12-10-2021 End: 73-49-5609Vvhitdjui for general adult medical examination without abnormal findingsSAMMY DOLLFacility:X6Jnprf: 86-82-0471Uynyz health examination Sammy Doll Other Nort [employer] Other Procedures DateProcedureProcedure DetailPerforming ClinicianStart: 26-78-7757Efldjjgevau Abi Green ASSEMBLY LINE INSPECTOR-ENVIRONMENTAL COMPLIANCE MANAGER Work Phone: Start: 10-04-2028UsjzcbfwktbVseug Lue Start: 58-55-8141GcfltumhpipsthvtwpelojnibpVjkqz Lue Start: 94-55-3950LTN screeningKATHY LUE .Comment on above:Performed By: #### PSAD #### [facility] [address] [place] [address] Dr. Nida CastilloStart: 73-76-9929Nxjbaqg retropubic prostatectomyKathy Lue Start: 46-55-1629Hlmnfortubi biopsy of prostateKathy Lue Start: 82-06-7204Rixvwinmb for malignant neoplasm of prostateSammy Doll Other Start: 92-77-4720Pgupsnp examination of patient Sammy Doll Other Start: 08-96-3619QetmoszdntzJihsyzq NILL Start: 26-43-5974WxkhpgwjxgombmifskpdpxfqunQxammlz NILL Start: 68-78-7271Egyykxrtjutdnurv procedureKathy Lue Biopsy of soft palateMichael NILL ColonoscopyKathy Lue Decompression of median nerveMichael NILL TonsillectomyKathy Lue Plan of Treatment DateCare ActivityDetailAuthorStart: 85-55-7457Lvrcreyvr for malignant neoplasm of colonNOMS HealthcareStart: 06-01-2025 End: 11-39-4120Aipelci encounter hcjiqbtrn42/31/2025 10:30 AM EDT Office Visit DONG Hurtado [facility] [address] [place] [address] Abi Green, [facility] [address] [address] Sha Hurtado [facility] CenterComment on above:ArrivedStart: 05-18-2025 End: 24-25-8340Ayaidih encounter /17/2025 9:00 AM EDT Office Visit DONG Hurtado [facility] [address] [place] [address] Abi Green, ASSEMBLY LINE INSPECTORDOCTORS HOSPITAL OF SPRING[facility] 112 [facility] [address] [place] [address] NOMRavi H[facility] HealthStart: 15-92-4069REOIR-19 Vaccine ( season)COVID-19 Vaccine ( season)NOM HealthcareStart: 11-48-0901Gcgxwiwlp vaccinationInfluenza Vaccine (#1)NOM HealthcareStart: 03-21-2025 End: 75-48-0900Sulnojf encounter zjobabler18/20/2025 2:20 PM EDT Office Visit VI SANTOS [address] [place] [address] Tawny Martinez NP [address] [place] [address] VI MOREVUEStart: 02-16-2025 End: 75-22-7282Wrcfbze encounter sqpaagyfi24/18/2025 10:30 AM EDT Office Visit NOMRavi [facility] [address] [place] [address] Abi Johnson, ASSEMBLY LINE INSPECTOR-ENVIRONMENTAL COMPLIANCE MANAGER [address] [facility] [place] [address] NOMS SWS BHStart: 12-18-2024 End: 92-14-2858Yatmpel encounter procedureANA NORWALKComment on above:Arrived Start: 11-03-2024 End: 20-07-7913Igofoek encounter procedureNOMS SWS BHComment on above:Arrived Start: 08-30-2024 End: 12-01-7895Mqcfmcj encounter procedureNOMS NE NEUROComment on above:Arrived Start: 07-07-2024 End: 43-75-3521Kvifizw encounter procedureNOMS SWS BHComment on above:Arrived Start: 06-06-2024 End: 68-44-0089Ivcxqoo encounter jpvkxdsut03/05/2024 11:00 AM EST Office Visit [facility] [address] [place] [address] Precious [place] PA [address] [place] [address] ArrivedNOMS NE NEUROComment on above:ArrivedStart: 06-05-2024 End: 76-74-9755Jwzjpsa encounter hyvnvmnjg22/04/2024 11:20 AM EST Office Visit [facility] [address] [place] [address] Precious [place] PA [address] [place] [address] NOMS NE NEUROStart: 04-10-2024 End: 19-20-0223Zsvazel encounter procedureNOMS NE NEUROComment on above:Arrived Start: 80-09-3008Mewgkkpry vaccinationInfluenza Vaccine (#1)[facility] Start: 10-58-2262Ckfldcrdvfkg Vaccine: 65+ Years (1 of 1 - PCV)Pneumococcal Vaccine: 65+ Years (1 of 1 - PCV)NOMS HealthcareStart: 77-68-9947Xarnwhxtwvub Vaccine: 65+ Years (1 of 1 - PCV)Pneumococcal Vaccine: 65+ Years (1 of 1 - PCV) NOM HealthcareStart: 92-51-4259PJmL/Tdap/Td Vaccines (1 - Tdap)DTaP/Tdap/Td Vaccines (1 - Tdap)[facility] HealthcareStart: 04-09-9124KEL Vaccines (1 of 1 - Standard series)MMR Vaccines (1 of 1 - Standard series)[facility] HealthcareStart: 72-29-9553Eivthhkak for malignant neoplasm of colonNOMS HealthcareComprehensive metabolic 2000 panel - Serum or PlasmaKettering Health Behavioral Medical CenterPatient EducationLow back pain in adultsSheltering Arms Hospital Work Phone: XR Lumbar spine ViewsAdventhealth Orlando Immunizations Immunization DateImmunizationNotesCare NubhnynsPldjyimn04-58-0393lkwfqdoqq virus vaccine, unspecified formulationKathy Lue [facility]10-15-2024influenza, high dose seasonal, preservative-freeKettering Health Behavioral Medical Center12-13-2022COVID-19 Pfizer (Pediatric)Sammy Doll Other [facility]12-13-2022influenza virus vaccine, split virus (incl. purified surface antigen)Sammy Doll Other [place] [employer] Other 510671-08-8822gbfragbyn virus vaccine, unspecified formulationKathy Lue [facility]12-13-2022influenza, injectable, quadrivalent, preservative freeBenjesus Doll Other [facility]12-13-2022SARS-CoV-2 (COVID-19) mRNAMUL.ORD!u53088Vfddy Lue [facility]12-14-2021SARS-CoV-2 (COVID-19) mRNA-1273 vaccineKathy Lue [facility]12-04-2021SARS-CoV-2 (COVID-19) mRNA-1273 vaccineKathy Lue [facility] Health CenterComment on above:Result Comment: -21-3123dkxgpnfxo virus vaccine, split virus (incl. purified surface antigen)Sammy Doll Other [employer] Other 920133-20-0804exablsarj virus vaccine, unspecified formulationKettering Health Behavioral Medical Center03-08-2021SARS-CoV-2 (COVID-19) Ad26 vaccine, recombinantKathy Lue [facility]10-09-2020influenza virus vaccine, unspecified formulationKathy Lue [facility]10-09-2020influenza, injectable, quadrivalent, preservative free [facility]10-14-2019influenza virus vaccine, unspecified formulationKathy Lue [facility]10-14-2019influenza, seasonal, injectableKettering Health Behavioral Medical Center10-11-2019influenza virus vaccine, split virus (incl. purified surface antigen)Sammy Doll Other [employer] Other 647856-74-5176jqurihdtg virus vaccine, unspecified formulationKettering Health Behavioral Medical Center01-11-2019influenza virus vaccine, unspecified formulationKathy Lue [facility]01-11-2019Influenza, injectable, Madin Suzanne Canine Kidney, preservative free, quadrivalentKettering Health Behavioral Medical Center10-20-2017influenza virus vaccine, split virus (incl. purified surface antigen)Sammy Willy Other [place] [employer] Other 995341-45-5390awxyywxed virus vaccine, unspecified formulationKettering Health Behavioral Medical Center10-20-2017influenza, unspecified formulationKathy Lue [facility]10-20-2016tetanus and diphtheria toxoids, adsorbed, preservative free, for adult use (5 Lf of tetanus toxoid and 2 Lf of diphtheria toxoid)[facility]10-20-2016tetanus toxoid, reduced diphtheria toxoid, and acellular pertussis vaccine, adsorbedKathy Lue [facility]10-23-2015influenza virus vaccine, unspecified formulationKathy Lue [facility]10-23-2015influenza, seasonal, injectableKettering Health Behavioral Medical Center Payers DatePayer CategoryPayerPolicy [id number] Health Insurance [id number] (Managed Care)[facility] MEDICARE ADVANTAGE [id number] Health [id number] Cross Blue [id number] BCBS [id number] 2022-[facility] [phone] [address] [place] [address] [id number]60Lhjh Cross Blue Shield [id number] 2017Medicare [id number] [id number] 1958 [id number] 2.0.1.431032.3.57[id number] 2.0.1.114850.3.579.[id number] 2.0.1.308871.3.57[id number] 2.0.1.693381.3.57[id number] 2.160.1.219839.3.57[id number] 2.160.1.626087.3.57[id number] 2.160.1.999524.3.57[id number] 2.160.1.912027.3.57[id number] 2.16.840.1.678436.3.57[id number] 2.16.840.1.446314.3.57[id number] 2.16.840.1.570136.3.57[id number] 2..840.1.432313.3.57[id number] 2.16.840.1.240876.3.579.2.1259 Social History DateTypeDetailFacilityStart: 04-10-2024 End: 83-21-9003Nau Assigned At [facility] Centertart: 12-02-2022 End: 94-12-4110Sufifbv smoking statusEx-smoker (finding)[facility] InstituteueStart: 10-14-2022 End: 01-83-3350Gkjpmyv smoking statusNeverExecutive Urology of [facility] Generaltart: 12-12-2022 End: 08-81-4909Iyxxaak smoking status NHISNever smoked tobacco (finding) [facility] Hospitaltart: 92-53-2232Hrl Assigned At [facility] Administrationtart: 79-62-7054Mesnfsz use and exposure Smokeless tobacco non-userNOMS HealthcareStart: 04-10-2024 End: 01-35-5596Wrfjjijcm beverage intakeEx-drinker (finding)[facility] Start: 04-10-2024 End: 89-48-9298Jwxmhkm of Social functionNOMS HealthcareStart: 01-21-2023 Clefwsnxn88WPND HealthcareStart: 88-58-6819Vfgoudb CommentCaffeine: 1-2 cups/day coffeeNOMS HealthcareStart: 71-73-8394Azc assigned at birthNot on fileNOMS HealthcareStart: 81-24-8430Fcmmof identityIdentifies as male gender (finding) [facility] HealthcareStart: 11-13-2009 End: 68-15-2810TzuDdik (finding)[facility]itan Hospitalexual OrientationExec[facility] Functional Status SvkwAtduzaxrbwGymujmFzlvjyaq72-41-2247Tsuxnsegzvt anxiety disorder 7 item (RASHMI-7)[facility] CenterGsjnwsozdv13-72-3527Upyxcxl Health Questionnaire 2 item (PHQ-2) [Reported][facility] Treatment CenterWjjndzurvo80-23-8664Arqjwnv Health Questionnaire (PHQ) [Reported] [facility] CenterImaepksvyx55-63-8891AJL-1 quick depression assessment panel [Reported.PHQ] [facility] CenterQqwloaqqhu29-93-0335Gnvjdibmdb StatusN/AExecutive [facility]08-21-2024Functional StatusN/AExec[facility]04-17-2024Functional StatusN/AGeneral Surgery Bukajcia53-00-4866Bjhtaetvln StatusYeSouthern [facility] 44-01-1991Idvajipfdc StatusPremier Health [facility]08-16-2023Functional StatusN/AExec[facility]05-03-2023 Functional StatusN/A[facility] Clinical Notes 09-29-2022 to 06-01-2025 Note Date & AlsnViwlAhimevdj69-22-2978 History of Present illness Narrative* Abi Green, ASSEMBLY LINE INSPECTOR-ENVIRONMENTAL COMPLIANCE MANAGER - 06/01/2025 10:30 AM EDT Images from the original note were not included. Yeni Holmna is a 64 y.o. male presents for [...] 2013 Degenerative disc disease, cervical 08/18/2016 Depression (CMS/[facility]ERLY [facility]) Disturbance of skin sensation 2013 Diverticulitis Fibromyalgia 08/24/2016 GERD (gastroesophageal reflux disease) Headache Headache 08/18/2016 High cholesterol (CMS/HCC) History of sleep disorder Hyperlipidemia (CMS/HCC) Hypertension (CMS/HCC) Lumbosacral radiculopathy 01/12/2013 Major depression, recurrent, chronic (HCC) (CMS/[facility]) Malaise and fatigue 2013 Migraine (CMS/HCC) 11/23/2017 Muscle spasm 11/23/2017 Myalgia 11/23/2017 Neck pain 11/23/2017 Pain in limb 2013 Prostate cancer (CMS/[facility]ERLY [facility]) SCCA (squamous cell carcinoma) of skin History of Lt Tonsillar SCCA + PET SCAN for rt tonsil Shingles Spinal stenosis, lumbar region without neurogenic claudication 08/18/2016 Syndrome affecting cervical region 08/18/2016 Tension headache 11/23/2017 Throat cancer ([facility]) (Lt Tonsillar) Viral warts Viral warts in nostrils ALLERGIES: No Known Allergies SURGICAL HISTORY: Past Surgical History: Procedure Laterality Date CARPAL TUNNEL RELEASE Left 2014 NOSE SURGERY warts removed PALATE BIOPSY 01/28/2009 Soft Palate Bx Squamous hyperplasia RADICAL PROSTATECTOMY [facility] 08/2020 TONSILLECTOMY Right 07/03/2008 TONSILLECTOMY Left 05/01/2008 [...] Follow up 3 months documented in this encounterSoutheast [facility] [id number] Evaluation note* Diagnosis Onset Date Resolution Status [...] canceracuteOctober 2024 11:15amLow back painchronicOctober 2024 11:15am [facility] Work Phone: 1(773) 470-958308-18-2025 Telephone encounter Note* Telephone Encounter - Adri Young - 03/19/2025 10:54 AM EDT Patient requesting a refill on Trintellix sent to [facility] pharmacy. Patient has a follow up scheduled for 05/18. [facility] [id number] Miscellaneous Notes* Telephone Encounter - Adri Young - 03/19/2025 10:54 AM EDT Patient requesting a refill on Trintellix sent to [facility] pharmacy. Patient has a follow up scheduled for 05/18. documented in this encounterSoutheast [facility] Community Treatment [id number] Evaluation note* Diagnosis Onset Date Resolution Status Admit Date Anemia acuteJuly 2024 11:28amConstipationacuteJuly 2024 11:28am Gastroesophageal reflux disease with esophagitis without hemorrhageacuteJuly 2024 11:28amHigh cholesterolacuteJuly 2024 11:28amHypertensionacute Brenda 2024 11:28amLumbar spondylosisacuteJuly 2024 11:28amMild episode of recurrent major depressive disorderacuteJuly 2024 11:28amOpiate analgesic use agreement existsacuteJuly 2024 11:28amOSA (obstructive sleep apnea)acuteJuly 2024 11:28amProstate canceracuteJuly 2024 11:28amWellness examinationacuteJuly 2024 11:28am [facility] Work Phone: 1(746) 946-735406-18-2025 Hospital Discharge instructions Patient Education 01/17/2025 09:55:43 [...] greater thelikelihood that the cancer will spread. [place] 6 or lower: This indicates that the [...] stress of having cancer. General instructions Take iwkd-ord-flsjsvl and prescription medicines only as told by your health care provider. If you have to go to the hospital, notify your cancer specialist (oncologist). Keep all follow-up visits. This is important. Where to find more information [employer]: www.cancer.org Finnish Society of Clinical Oncology: www.cancer.net National Cancer [place]: www.cancer.gov Contact a health care provider if: [...] provider. Document Revised: 10/15/2021 Document Reviewed: 10/15/2021 Clerts! Patient Education 2023 FlexEl. Follow Up Care 06/08/2024 11:35:58 With:Brian LUGO, PEDRO Bernal, URO Address: When: Unknown [facility] 06-18-2025 NotePatient Education Oncology Prostate Cancer The [...] needles, seeds, wires, o (more content not included)...[facility]05-19-2025 History of Present illness Narrative* COCO Clements [...] radiculopathy 01/12/2013 Major depression, recurrent, chronic (HCC) (CMS/[facility]) Malaise and fatigue 2013 Migraine 11/23/2017 Muscle spasm 11/23/2017 Myalgia 11/23/2017 Neck pain 11/23/2017 Pain in limb 2013 Prostate cancer (CMS/HCC) SCCA (squamous cell carcinoma) of skin History of Lt Tonsillar SCCA + PET SCAN for rt tonsil Shingles Spinal stenosis, lumbar region without neurogenic claudication 08/18/2016 Syndrome affecting cervical region 08/18/2016 Tension headache 11/23/2017 Throat cancer ([facility]) (Lt Tonsillar) Viral warts Viral warts in [...] writing -admits some hand weakness and trouble 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 LUE Strength deltoid, biceps, triceps, wrist extensors, wrist extensors, wrist flexor, box spring upholsterer strength 5/5. RLE Strength illopsoas, quadriceps, tibialis [...] Follow up 2-3 months documented in this encounterSoutheast [facility] Community Treatment [id number] History of Present illness Narrative* Abi Jun Green, ASSEMBLY LINE INSPECTOR-ENVIRONMENTAL COMPLIANCE MANAGER - 11/03/2024 10:00 AM EDT Images from [...] region 08/18/2016 Tension headache 11/23/2017 Throat cancer ([facility]) (Lt Tonsillar) Viral warts Viral warts in [...] Follow up 3 months documented in this [facility]01-30-2025 Telephone encounter Note* Telephone Encounter - Marti Hernandez MA - 08/31/2024 1:23 PM EST Linda was denied pt has to try formulary either Emgality or Qulipta [facility] [id number] Miscellaneous Notes* Telephone Encounter - Marti Hernandez MA - 08/31/2024 1:23 PM EST Linda was denied pt has to try formulary either Emgality or Qulipta documented in this [facility]01-30-2025 Telephone encounter Note* Telephone Encounter - Jasmin [...] conflict with his psych meds. Understanding voiced [facility] [id number] Miscellaneous Notes* Telephone Encounter - Jasmin Spain [...] care with her. Thanks! documented in this encounterNOSaint John's HospitalNhtqlbrsim02-12-7137 Telephone encounter Note* Telephone Encounter - Jasmin Spain LPN - 08/30/2024 1:28 PM EST Attempted to reach patient, did not answer. LVM to call office [facility] [id number] Telephone encounter Note* Telephone Encounter - COCO [...] to his care with her. Thanks! 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 LUE Strength deltoid, biceps, triceps, wrist extensors, wrist extensors, wrist flexor, box spring upholsterer strength 5/5. RLE Strength illopsoas, quadriceps, tibialis [...] with heated humidification for air for dryness. [facility] set patient up with his CPAP machine. [...] Follow up 3-4 months documented in this encounterSoutheast [place] Community Treatment [id number] History of Present illness Narrative* Abi Green, ASSEMBLY LINE INSPECTOR-ENVIRONMENTAL COMPLIANCE MANAGER - 07/07/2024 10:30 AM EST Images from [...] Follow up -4 months documented in this encounterSoutheast [facility] Community Treatment [id number] NotePatient Education Obstetrics and Gynecology Overactive Bladder, [...] health care provider. General instructions ??? Take bsep-dzi-vbhuocf and prescription medicines only as told by [...] you drink, and whe (more content not included)...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 LUE Strength deltoid, biceps, triceps, wrist extensors, wrist extensors, wrist flexor, box spring upholsterer strength 5/5. RLE Strength illopsoas, quadriceps, tibialis [...] with heated humidification for air for dryness. [facility] set patient up with his CPAP machine [...] new or worsening symptoms documented in this encounterSoutheast [place] Community Treatment [id number] History of Present illness Narrative* COCO Luciano [...] drinking -admits some hand weakness -trouble with box spring upholsterer -states he occasionally drops things -continues to [...] triceps, wrist extensors, wrist extensors, wrist flexor, box spring upholsterer strength 5/5. LUE Strength deltoid, biceps, triceps, wrist extensors, wrist extensors, wrist flexor, box spring upholsterer strength 5/5. RLE Strength illopsoas, quadriceps, tibialis [...] new or worsening symptoms documented in this encounterSoutheast [place] Community Treatment [id number] History of Present illness Narrative* Abi Green, ASSEMBLY LINE INSPECTOR-ENVIRONMENTAL COMPLIANCE MANAGER - 03/24/2024 11:00 AM EDT Images from [...] and Time Memory/Concentration Short term intact and exterminator termite intact Insight/Judgement Good OBJECTIVE: Visit Vitals Smoking [...] PLAN: Assessment/Plan Major depression, recurrent, chronic (HCC) ([facility]/HCC Psych Medication List traZODone HCl Tablet, 100 [...] 20min F/U 3-4 months documented in this encounterSoutheast Missouri Community Treatment CenterErausasnyj33-59-2350 Hospital Discharge instructions Patient Education 03/22/2024 11:18:06 [...] your health care provider. General instructions Take ykau-xfj-royexmb and prescription medicines only as told by [...] provider. Document Revised: 04/07/2021 Document Reviewed: 04/07/2021 Clerts! Patient Education 2022 FlexEl. 03/22/2024 11:18:05 Botulinum Toxin Bladder Injection Botulinum [...] including vitamins, herbs, eye drops, creams, and vttf-mhm-qsodaxc medicines. Any problems you or family members [...] provider tells you to take them. Taking xnza-hwd-zvmoeki medicines, vitamins, herbs, and supplements. General instructions [...] Follow these instructions at home: Medicines Take ejlg-opz-nudrpax and prescription medicines only as told by [...] provider. Document Revised: 01/23/2022 Document Reviewed: 01/23/2022 Clerts! Patient Education 2022 FlexEl. Follow Up Care 03/17/2023 11:32:09 With:Brian LUGO, PEDRO Bernal, URO Address: When: Unknown [facility] 08-21-2024 NotePatient Education Obstetrics and Gynecology Overactive [...] health care provider. General instructions ? Take rqcb-mts-hhnqikg and prescription medicines only as told by [...] help your health care (more content not included)...[facility]01-29-2024 Evaluation note* Encounter Date Diagnosis Assessment Notes Treatment Notes Treatment Clinical Notes Aug, Elevated TSH (ICD-10 - R94.6) [employer] Other 01-22-2024 Evaluation note* Encounter Date Diagnosis Assessment Notes Treatment Notes Treatment Clinical Notes Aug, Weight loss, unintentional (ICD- 10 - R63.4) [employer] Other 01-11-2024 Evaluation note* Encounter Date Diagnosis [...] the patient reduces t he risk for UT, CVA, HTN, cardiac dysrhythmias and sudden cardiac [...] (ICD-10 - Z85.89)TonsilNo s/s recurrence f/u ENT [employer] Other 01-09-2024 Evaluation note* Encounter Date Diagnosis Assessment Notes Treatment Notes Treatment Clinical Notes Aug, Lumbar spondylosis (ICD-10 - M47 .816) [employer] Other 12-26-2023 Evaluation note* Encounter Date Diagnosis Assessment Notes Treatment Notes Treatment Clinical Notes Jul, Lumbar spondylosis (ICD-10 - M47 .816) Jul,astroesophageal reflux disease with esophagitis without hemorrhage (ICD-10 - K21.00) [employer] Other 12-06-2023 Evaluation note* Encounter Date Diagnosis Assessment Notes Treatment Notes Treatment Clinical Notes Jul, Weight loss, unintentional (ICD- 10 - R63.4) [employer] Other 11-30-2023 Evaluation note* Encounter Date Diagnosis [...] the patient reduces t he risk for UT, CVA, HTN, cardiac dysrhythmias and sudden cardiac [...] (ICD-10 - C61)No obvious s/s recurrence f/u [employer] Other 11-03-2023 Evaluation note* Encounter Date Diagnosis Assessment Notes Treatment Notes Treatment Clinical Notes Jun, Lumbar spondylosis (ICD-10 - M47 .816) [employer] Other 10-29-2023 Evaluation + Plan noteExtracted from:Title: APSO NoteAuthor:Jossue Spivey DODate:05/30/23 1. COVID-19 (U07.1: COVID-19 ) Remdesivir started 05/27, complete 5 days DEXA started 05/27, complete 10 days -Patient on room air, can likely stop remdesivir at discharge Ordered: [facility] Hospital Care/Day Moderate 35 Minutes 91700 2. Acute hypoxemic respiratory failure (J96.01: Acute [...] Ordered: Initial Hospital Care/Day Moderate 55 Minutes 72449 2. Acute hypoxemic respiratory failure (J96.01: Acute [...] Ordered: Sbsq Hospital Care/Day Moderate 35 Minutes 52504 2. Acute hypoxemic respiratory failure (J96.01: Acute [...] Ordered: Initial Hospital Care/Day Moderate 55 Minutes 74726 2. Acute hypoxemic respiratory failure (J96.01: Acute [...] Therapy PT & PTT Rapid COVID Antigen [place] Saline Lock Insert Troponin 0 Hr. Troponin 3 Hr. Troponin 6 Hr. Troponin 9 Hr. XR Chest Single View Future Appointments Appointment Date:03/22/2024 10:45:00 AM Scheduled Provider:Brian LUGO, Kayla Dubose Location:[facility] Appointment Type:URO Office Visit Diagnostic Tests Pending * Vancomycin Level Trough 06/01/23 [facility]10-29-2023 Hospital Discharge instructions Patient Education 05/30/2023 09:29:42 [...] managed at home with rest, fluids, and xrqo-mpt-djipjqi medicines. Serious symptoms may be treated in [...] water are not available, use alcohol-based hand end user consultant. Make sure that all people in your [...] managed at home with rest, fluids, and ajie-pci-zvqevxb medicines. This information is not intended to replace advice given to you by your health care provider. Make sure you discuss any questions you have with your health care provider. Document Revised: 07/09/2022 Document Reviewed: 07/09/2022 Clerts! Patient Education 2022 FlexEl. Follow Up Care 05/27/2023 13:13:17 With:Sree LUGO, Pawel Fried, PUL, FATOUMATA Address: [address] [place] [address] [facility] [place] [address]- When:2 to 4 weeks Comments:Call for followup appointment for possible outpatient sleep study [facility]09-08-2023 Evaluation note* Encounter Date Diagnosis Assessment Notes Treatment Notes Treatment Clinical Notes Apr, Lumbar spondylosis (ICD-10 - M47 .494) [employer] Other 08-16-2023 Hospital Discharge instructions Patient Education [...] provider. Document Revised: 11/27/2021 Document Reviewed: 11/27/2021 Clerts! Patient Education 2022 FlexEl. Follow Up Care 12/02/2022 09:06:34 With:Brian LUGO, Kayla Dubose URL, URO Address: When:Within 1 Year(s) Comments:w/PSA [facility] [employer] 08-10-2023 Evaluation note* Encounter Date Diagnosis Assessment Notes Treatment Notes Treatment Clinical Notes Mar, Lumbar spondylosis (ICD-10 - M47 .816) [employer] Other 07-11-2023 Evaluation note* Encounter Date Diagnosis Assessment Notes Treatment Notes Treatment Clinical Notes Jan, Lumbar spondylosis (ICD-10 - M47 .816) [employer] Other 06-06-2023 Evaluation note* Encounter Date Diagnosis Assessment Notes Treatment Notes Treatment Clinical Notes Dec, Lumbar spondylosis (ICD-10 - M47 .816) [employer] Other 05-31-2023 Evaluation note* Encounter Date Diagnosis [...] the patient reduces t he risk for UT, CVA, HTN, cardiac dysrhythmias and sudden cardiac [...] for now. November,Lumbar spondylosis (ICD-10 - M47.816) [employer] Other 05-03-2023 Hospital Discharge instructions Patient Education [...] if anything looks unusual. Men with a dacltd-gfoe-njucpo risk for skin cancer may want to see a wildland fire operations specialist (knitting machine operator helper) for an annual body check. What are the benefits of screening? Cancer screening is done to look for cancer in the very early stages, before it spreads and becomesharder to treat and before you would start to notice symptoms. Finding cancer early improves the chances of successful treatment. It may save your life. Where to find more information [employer] Cancer Society: www.cancer.org Centers for Disease Control and Prevention: www.cdc.gov National Cancer [place]: www.cancer.gov Contact a health care provider if: [...] provider. Document Revised: 12/15/2021 Document Reviewed: 06/14/2020 Clerts! Patient Education 2022 FlexEl. Follow Up Care 11/11/2021 11:50:16 With:Brian LUGO, PEDRO Bernal, URO Address: When: Unknown [facility] [employer] 03-31-2023 Evaluation note* Encounter Date Diagnosis Assessment Notes Treatment Notes Treatment Clinical Notes Sep, Lumbar spondylosis (ICD-10 - M47 .816) [facility] [employer] Other 02-28-2023 Evaluation note* Encounter Date Diagnosis [...] the patient reduces t he risk for UT, CVA, HTN, cardiac dysrhythmias and sudden cardiac [...] cell carcinoma (ICD-10 - Z85.89)TonsilNo s/s recurrence [employer] Other Evaluation + Plan note Future Appointments Appointment Date:03/17/2023 10:30:00 AM Scheduled Provider:Kayla Torres MD Location:[facility] Appointment Type:URO Office Visit Diagnostic Tests Pending * PSA Total 12/02/22 [facility] evaluation + Plan note Future Appointments Appointment Date:03/22/2024 10:45:00 AM Scheduled Provider:Kayla Torres MD Location:[facility] Appointment Type:URO Office Visit [facility] evaluation + Plan note Future Appointments Appointment Date:06/07/2024 10:45:00 AM Scheduled Provider:Kayla Torres MD Location:[facility] Appointment Type:URO Office Visit [facility] evaluation + Plan note Future Appointments Appointment Date:01/10/2025 10:45:00 AM Scheduled Provider:Kayla Torres MD Location:[facility] Appointment Type:URO Office Visit Diagnostic Tests Pending * PSA Total 06/08/24 [facility] evaluation + Plan note Future Appointments Appointment Date:01/16/2026 11:00:00 AM Scheduled Provider: Location:[facility] Appointment Type:URO Nurse Visit Appointment Date:01/23/2026 10:00:00 AM Scheduled Provider:Kayla Torres MD Location:[facility] Appointment Type:URO Office Visit Future Scheduled Tests Laboratory* PSA Total 01/17/25 [facility] evaluation noteNo [facility] [facility] [employer] Other Evaluation note* Diagnosis Onset Date Resolution Status Gastroesophageal reflux disease with eso phagitis without hemorrhage acuteHigh cholesterolacuteHypertensionacuteLumbar spondylosisacuteMild episode of recurrent major depressive disorderacuteOSA (obstructive sleep apnea)acute Unexplained weight lossacute [facility] Work Phone: Evaluation note* Diagnosis Onset Date Resolution Status Gastroesophageal reflux disease with eso phagitis without hemorrhage acuteHigh cholesterolacuteHypertensionacuteLumbar spondylosisacuteMild episode of recurrent major depressive disorderacuteOSA (obstructive sleep apnea)acute Wellness examinationacute [facility] Work Phone: Evaluation note* Diagnosis Onset Date Resolution Status Gastroesophageal reflux disease with eso phagitis without hemorrhage acuteHigh cholesterolacuteHypertensionacuteLumbar spondylosisacuteMild episode of recurrent major depressive disorderacuteOSA (obstructive sleep apnea)acute [facility] Work Phone: Evaluation note* Diagnosis Migraine without [...] 2024 10:48amOSA (obstructive sleep apnea)acuteJanuary 2024 10:48am [facility] Work Phone: Evaluation note* Diagnosis Myalgia- Primary Unspecified myalgia and myositis Migraine without aura and without status migrainosus, not intractable (CMS/HCC) Tension headache [facility] encounter [facility]* Diagnosis Migraine without aura and without status migrainosus, not intractable (CMS/HCC)- Primary documented in this encounter [facility]* Diagnosis Major depression, recurrent, chronic (HCC) (CMS/HCC) Insomnia, unspecified type documented in this encounter [facility] HealthcareEvaluation note* Diagnosis Migraine without aura and [...] 11:28amProstate canceracuteJuly 2024 11:28amWellness examinationacuteJuly 2024 11:28am [facility] Work Phone: Evaluation note* Diagnosis Major depression, [...] HistorySleeping DisorderMedical HistoryHeadachesMedical HistoryGERD Medical HistoryShinglesSurgical HistoryRt Saokojtzxljmt18-3-0232Pbzvjtpk History Soft Palate Bx Squamous cthwbcabnde0-19-5425Pkcdfift HistoryNose surgery warts removedSurgical HistoryLt vvzibqptehlsr2-55-7958Cjlzzilw HistoryCarpal Tunnel [id number] Historypatient has never been hospitalized for [employer] Other History general Narrative - Reported* Type Description Date Medical History Hyperlipidemia Medical HistoryThroat Cancer (Lt Tonsillar)Medical HistoryDepressionMedical HistoryHypertensionMedical HistoryViral warts in nostrilsMedical HistoryHistory of Lt Tonsillar SCCA + PET SCAN for rt tonsilMedical HistoryHigh Cholesterol Medical HistorySleeping DisorderMedical HistoryHeadachesMedical HistoryGERD Medical HistoryShinglesSurgical HistoryRt Clfbyltmvfcrl66-6-2379Mqolqrgr History Soft Palate Bx Squamous cjeuixpnvvy3-47-4934Ebzhuyso HistoryNose surgery warts removedSurgical HistoryLt uqlboyjgxxhar6-31-8275Pymtdvxj HistoryCarpal Tunnel [id number] XzavqusCzyoktlzqle3962Avkyapfsjyqwwuq Historypatient has never been hospitalized for [employer] Other History general Narrative - Reported* Type Description Date Medical History Hyperlipidemia Medical HistoryThroat Cancer (Lt Tonsillar)Medical HistoryDepressionMedical HistoryHypertensionMedical HistoryViral warts in nostrilsMedical HistoryHistory of Lt Tonsillar SCCA + PET SCAN for rt tonsilMedical HistoryHigh Cholesterol Medical HistorySleeping DisorderMedical HistoryHeadachesMedical HistoryGERD Medical HistoryShinglesMedical HistoryFatty liver diseaseMedical HistorySmall splenic lesionsSurgical HistoryRt Dmhgyivzzmyrz41-8-6511Epizcqiz HistorySoft Palate Bx Squamous aaeqchuocez2-66-9615Rmqmglfv HistoryNose surgery warts removedSurgical HistoryLt djeuiximygeih7-89-9464Lmnuzmcf HistoryCarpal Tunnel [id number] TifeanmWucelihooyt3488Hdujlvurahennra Historypatient has never been hospitalized for mental health [facility] [facility] Other Hospital course Narrative No data available for this section [facility] Hospital Discharge instructions No data available for this section [facility] No data available for this section [facility] reason for referral (narrative)* Reason *Waiting for appt Referral for EGD and Colonoscopy for continued weight loss and mild anemia Diagnosis 1 Weight loss, uninten tional (R63.4) Referral Organization [facility] lindavid Referring Provider First Name Sammy Referring Provider Last Name Willy Referring Provider Specialty Internal Me dicine Referred Organization [facility] Gastroenterolo gy Referred Provider Jillian Rodas Referred Address [address],[address] Referred Provider Specialty Gastroentero logy Referral Priority [...] referral faxed P2P Clinical NotesInclude CT abdomen/pelvis [facility] Other Reason for referral (narrative)No reason for referral information availableSheltering Arms Hospital Work Phone: Summary Purpose Family History No [...] depression, recurrent, chronic (HCC) (CMS/HCC) Abi Green, ASSEMBLY LINE INSPECTOR-ENVIRONMENTAL COMPLIANCE MANAGER [address] [facility] [address] [place] [address] Referral IDStatusReasonStart DateExpiration DateVisits RequestedVisits [id number] Review/ Additional Source Comments REASON FOR VISIT (unrecogniz ed section and content) ReasonCommentsMigraineReasonCommentsMed ManagementFollow-upReasonComments MigraineNeck PainTremorsBack PainReasonCommentsMed ManagementFollow-upReason Onset DateCommentsMed Uafeov6603/19/2025 Patient Care team informatio n (unrecognized section [...] 2023 Team Status: Active Member Role Status Main Doll DO Primary Care Provide r, Attending Provider Active Start: January 17, 2024 Team Status: Inactive Member Role Status Main Doll DO Primary Care Provide r, Attending Provider Active Start: February 10, 2024 End: February 10, 2024Team MemberRelationshipSpecialtyStart DateEnd Date Sammy Doll MD [address] [place] [phone] PCP - GeneralInternal Medicine01/08/23Team MemberRelationshipSpecialtyStart Date End Date Sammy Doll MD [address] [facility] [place] [facility] [place] [address] PCP - GeneralInternal Medicine01/08/23Team MemberRelationshipSpecialtyStart Date End Date Sammy Doll MD [address] [facility] [place] [address] PCP - GeneralInternal Medicine01/08/23Te MemberRelationshipSpecialtyStart Date End Date Sammy Doll MD [address] [facility] [place] [facility] [place] [phone] PCP - GeneralInternal Medicine01/08/23Te MemberRelationshipSpecialtyStart Date End Date Sammy Doll MD [address] [facility] [place] [address] PCP - GeneralInternal Medicine01/08/23Te MemberRelationshipSpecialtyStart Date End Date Sammy Doll MD [address] [facility] [place] [address] PCP - GeneralInternal Medicine01/08/23 Team Status: Inactive Member Role Status Dates Sammy Doll DO Primary Care Provide r, Attending Provider Active Start: August 17, 2024 End: August 17, 2024Team MemberRelationshipSpecialtyStart DateEnd Date Sammy Doll MD [address] [facility] [place] [facility] [place] [address] PCP - GeneralInternal Medicine01/08/23 Abi Green, ASSEMBLY LINE INSPECTOR-ENVIRONMENTAL COMPLIANCE MANAGER [address] [facility] [address] [place] [address] Nurse PractitionerPsychiatry1 Michelle Haro PA [address] [place] [address] Physician AssistantNeurology1Te MemberRelationshipSpecialtyStart DateEnd Date Sammy Doll MD [address] [place] [address] P[facility] - [facility]01/08/23 Abi Green, ASSEMBLY LINE INSPECTOR-ENVIRONMENTAL COMPLIANCE MANAGER [address] [address] Nurse PractitionerPsychiatry1 Michelle Haro PA [address] [place] [address] Physician AssistantNeurologTe MemberRelationshipSpecialtyStart DateEnd Date Sammy Doll MD [address] [place] [address] [facility] - [facility]/08/23 Abi Green, ASSEMBLY LINE INSPECTOR-ENVIRONMENTAL COMPLIANCE MANAGER [address] [facility] [address] [place], [place] [id number] Nurse PractitionerPsychiatry1 Michelle Haro PA [address] [place] [address] Physician AssistantNeurology1Team MemberRelationshipSpecialtyStart DateEnd Date Sammy Doll MD [address] [facility] [place] [address] PCP - GeneralInternal Medicine01/08/23 Abi Green, ASSEMBLY LINE INSPECTOR-ENVIRONMENTAL COMPLIANCE MANAGER [address] [facility] [address] [place] [address] Nurse PractitionerPsychiatry1 Michelle Haro PA [address] [place] [address] Physician AssistantNeurology1Te MemberRelationshipSpecialtyStart DateEnd Date Sammy Doll MD [address] [facility] [place] [address] PCP - GeneralInternal Medicine01/08/23 Abi Green, ASSEMBLY LINE INSPECTOR-ENVIRONMENTAL COMPLIANCE MANAGER [address] [address] Nurse PractitionerPsychiatry1 Michelle Haro PA [address] [place] [address] Physician AssistantNeurology1Te MemberRelationshipSpecialtyStart DateEnd Date Sammy Doll MD [address] [facility] [place] [address] PCP - GeneralInternal Medicine01/08/23 Abi Green, ASSEMBLY LINE INSPECTOR-ENVIRONMENTAL COMPLIANCE MANAGER [address] [facility] [address] [place] [address] Nurse PractitionerPsychiatry1 Michelle Haro PA [address] [place] [address] Physician AssistantNeurology1/Te MemberRelationshipSpecialtyStart DateEnd Date Sammy Doll, DO PCP - [facility]01/08/23 Abi Green, ASSEMBLY LINE INSPECTOR-ENVIRONMENTAL COMPLIANCE MANAGER [address] [facility] [address] [place] [address] Nurse PractitionerPsychiatry1 Michelle Haro PA [address] [place] [address] Physician AssistantNeurologTe MemberRelationshipSpecialtyStart DateEnd Date Sammy Doll, PCP - [facility]01/08/23 Abi Green, ASSEMBLY LINE INSPECTOR-ENVIRONMENTAL COMPLIANCE MANAGER 112 [facility] [address] [place] [address] Nurse PractitionerPsychiatry1 Michelle Haro PA [address] [place] [address] Physician AssistantNeurologTe MemberRelationshipSpecialtyStart DateEnd Date Sammy Doll DO PCP - GeneralInternal Medicine01/08/23 Abi Green, ASSEMBLY LINE INSPECTOR-ENVIRONMENTAL COMPLIANCE MANAGER [address] [facility] [address] [place] [address] Nurse PractitionerPsychiatry1 Michelle Haro PA [address] [facility] [address] [place] [address] Physician AssistantNeurology1 Team Status: Active Member Role Status Dates Sammy Doll DO Primary Care Provider Active Start: February 28, 2025 Sammy Doll DOAttending ProviderActiveStart: February 28, 2025 Team Status: Inactive Member Role Status Dates Sammy Doll DO Primary Care Provider Active Start: March 21, 2025 End: March 21, 2025Saarminda Martinez [id number] ProviderActiveStart: March 21, 2025 End: March 21, 2025 Team Status: Active Member Role/Relationship Status Dates Sammy Doll DO Primary Care Provider Active Team Status: Inactive Member Role/Relationship Status Dates Sammy Doll DO Primary Care Provider Active Start: March 21, 2025 End: March 21, 2025Saarminda Martinez [id number] ProviderActiveStart: March 21, 2025 End: March 21, 2025 Team Status: Inactive Member Role/Relationship Status Dates Sammy Doll DO Primary Care Provider Active Start: May 31, 2025 End: May 31enjesus Doll DOAttending ProviderActiveStart: May 31, 2025 End: May 31, 2025Team MemberRelationshipSpecialtyStart DateEnd Date Sammy Doll DO [address] [place] [address] PCP - GeneralInternal Medicine01/08/23 Abi Green, ASSEMBLY LINE INSPECTOR-ENVIRONMENTAL COMPLIANCE MANAGER [address] [facility] [address] [place] [address] Nurse PractitionerPsychiatry1 Michelle Haro PA [address] [place] [address] Physician AssistantNeurolog08/30/24Team MemberRelationshipSpecialtyStart DateEnd Date Sammy Doll DO [address] [place] [phone] PCP - GeneralInternal Medicine01/08/23 Abi Green, ASSEMBLY LINE INSPECTOR-ENVIRONMENTAL COMPLIANCE MANAGER [address] [facility] [address] [place] [address] Nurse PractitionerPsychiatry1 Michelle Haro PA [address] [place] [address] Physician AssistantNeurolog08/30/24 (unrecognized sect ion and content) No Status Records FoundNo Status Records FoundNo Status Records Found INFORMATION SOURCE (unrecogn ized section and content) DATE CREATED AUTHOR 12/04/2022 [facility] DATE CREATED AUTHOR AUTHOR'S ORGANIZ ATION 02/04/2025 [facility] DATE CREATED AUTHOR AUTHOR'S ORGANIZ ATION 06/03/2025 [facility] EPIC Goals (unrecognized section and [...] BE BASED ON THE PRIMARY CLINICAL RECORDS. [facility]. provides no warranty or guarantee of the accuracy or completeness of information in this document.
== END 2025-06-25 09:22 | disposition home or self-care (01) ==
LOC: MRI 09:21
PROVIDERS: PCP Internal Medicine; Visit Provider Internal Medicine
DX: M54.50 Low back pain, unspecified (principal); G89.29 Other chronic pain; M47.816 Spondylosis without myelopathy or radiculopathy, lumbar region; M51.369 Other intervertebral disc degeneration, lumbar region without mention of lumbar back pain or lower extremity pain
CPT/HCPCS: 72148